=== PATIENT | female | born 1965 | race Caucasian/White ===

== ENCOUNTER → 2016-06-29 | Outpatient (CLI) | payer OTHER ==
[2016-06-29 09:27] LABS: Basophils % (A) 0 %; CH 30.8; CHCM 33.2; Eosinophils # (A) 0.2 k/uL (0-0.7); Eosinophils % (A) 3 %; HCT 43.6 % (34.0-46.0); HGB 14.1 gm/dL (11.4-16.0); Luc # (Auto) 0.19; Luc % (Auto) 3; Lymphocytes # (A) 1.9 k/uL (1.0-4.8); Lymphocytes % (A) 29 %; MCH 30.1 pg (25.0-35.0); MCHC 32.3 g/dL (31.0-37.0); MCV 93.2 fL (80.0-100.0); Mean Platelet Volume 7.5; Monocytes # (A) 0.4 k/uL (0-1.0); Monocytes % (A) 6 %; Neutrophils # (A) 3.8 k/uL (1.3-7.7); Neutrophils % (A) 58 %; RBC 4.68 m/uL (3.80-5.40); RDW 13.9 % (11.5-15.5); WBC 6.5 k/uL (3.8-10.6); WBC (Perox) 6.73
[2016-06-29 09:31] LABS: INR 1.3 (<1.1); Prothrombin Time 12.5 sec (9.0-12.0)
[2016-06-29 10:51] LABS: Manual Review Performed; RBC Morphology Normal
[2016-06-29 10:53] LABS: ALT 31 U/L (9-52); AST 19 U/L (14-36); Alkaline Phosphatase 93 U/L (38-126); Anion Gap 10 mmol/L; Blood Urea Nitrogen 23 mg/dL (7-17); Calcium 8.7 mg/dL (8.4-10.2); Carbon Dioxide 24 mmol/L (22-30); Chloride 109 mmol/L (98-107); Cholesterol 203 mg/dL (<200); Glucose 107 mg/dL (74-99); HDL Cholesterol 64 mg/dL (40-60); Non-African American GFR(MDRD) 53 (>60 ml/min/1.73 sqM); Potassium 4.4 mmol/L (3.5-5.1); Sodium 143 mmol/L (137-145); Total Bilirubin 0.3 mg/dL (0.2-1.3); Total Protein 7.1 g/dL (6.3-8.2); Triglycerides 194 mg/dL (<150); Uric Acid 5.1 mg/dL (3.7-7.4)
[2016-06-29 11:56] LABS: Vitamin B12 653 pg/mL (239-931)
[2016-06-29 12:41] LABS: Hemoglobin A1C 4.8 % (4.2-6.1)
== END | disposition home or self-care (01) ==
LOC: LABWHC1 08:45
PROVIDERS: ATTEND Family Medicine
DX: N18.3 Chronic kidney disease, stage 3 (moderate) (principal); R56.9 Unspecified convulsions; J44.9 Chronic obstructive pulmonary disease, unspecified; Z79.01 Long term (current) use of anticoagulants
CPT/HCPCS: 36415; 80053; 80061; 80185; 82607; 83036; 84439; 84443; 84550; 85025; 85610

== ENCOUNTER → 2016-08-27 | Outpatient (CLI) | payer OTHER ==
--- NOTE | 2016-09-02 09:57 | P.ARTDOP ---
Arterial Doppler LOWER EXTREMITY ARTERIAL DOPPLER: DATE OF SERVICE: 08/27/2016 Reason for study: Possible vasospasm. Doppler waveforms: Multiphasic bilaterally throughout. Pulse volume recording: Blunting below the ankle level, more on the right than the left. Pressure gradients: None. Ankle-brachial indices: Greater than 1 bilaterally. Toe pressures: [] on the right, [] on the left Impression: Normal study proximally. Decreased waveforms at the foot and toe level could be vasospastic phenomenon.
== END | disposition home or self-care (01) ==
LOC: RADUSWWP 08:26
PROVIDERS: ATTEND Family Medicine
DX: I73.9 Peripheral vascular disease, unspecified (principal); Z79.51 Long term (current) use of inhaled steroids
CPT/HCPCS: 93923

== ENCOUNTER → 2017-01-28 | Outpatient (CLI) | payer OTHER ==
--- NOTE | 2017-01-28 21:11 | US ---
EXAMINATION TYPE: US pelvic complete DATE OF EXAM: 01/28/2017 COMPARISON: US 2012, CT abdomen and pelvis January 14, 20152014 CLINICAL HISTORY: N93.9 Abnormal uterine bleeding. Patient stated had ceased [id number] months ag o at age 50, then heavy vaginal bleeding started recently; endometrial ablation, tubal ligation; take s Coumadin, Dilantin for seizures, and Labadie; ; HT 5'2, [id number]. TECHNIQUE: Transabdominal (TA) Date of LMP: approximately 15 months ago EXAM MEASUREMENTS:Uterus: 7.1 x 6.5 x 4.2 cm Endometrial Stripe: NA Right Ovary: 3.1 x 1.9 x 2.0 cm Left Ovary: not seen 1. Uterus: history of retroverted; bulbous appearance to upper uterus suggests possible uterine fibr oid = 4.3 x 4.1 x 4.4 2. Endometrium: not seen by TA US and with HX of endometrial ablation 3. Right Ovary: 2 possible cysts seen with larger measured = 1.5 x 1.5 x 1.4cm 4. Left Ovary: not seen 5. Bilateral Adnexa: wnl 6. Posterior cul-de-sac: wnl Exam is suboptimal as transvaginal evaluation. Performed. Heterogeneous slightly lobulated uterus is present. Underlying poorly defined fibroids cannot be excluded. Endometrial stripe is not seen with c ertainty. No free fluid is seen in pelvic cul-de-sac. Right ovary is visualized. Left ovary is not cl early seen. No suspicious adnexal masses are noted. IMPRESSION: Suboptimal study without transvaginal evaluation. Endometrium is not well seen suggesting atrophy. Heterogeneous lobulated uterus suggests underlying fibroids. Consider pelvic MRI correlatio n.
== END | disposition home or self-care (01) ==
LOC: RADUSWWP 15:14
PROVIDERS: ATTEND Family Medicine
DX: N93.9 Abnormal uterine and vaginal bleeding, unspecified (principal)
CPT/HCPCS: 76856

== ENCOUNTER → 2017-02-20 | Outpatient (CLI) | payer OTHER ==
[2017-02-20 07:29] LABS: Basophils % (A) 0 %; CH 30.7; CHCM 33.1; Eosinophils # (A) 0.2 k/uL (0-0.7); Eosinophils % (A) 2 %; HCT 41.3 % (34.0-46.0); HDW 2.62; HGB 14.1 gm/dL (11.4-16.0); Luc # (Auto) 0.24; Luc % (Auto) 3; Lymphocytes # (A) 2.2 k/uL (1.0-4.8); Lymphocytes % (A) 31 %; MCH 31.8 pg (25.0-35.0); MCHC 34.1 g/dL (31.0-37.0); MCV 93.1 fL (80.0-100.0); Mean Platelet Volume 7.6; Monocytes # (A) 0.5 k/uL (0-1.0); Monocytes % (A) 7 %; Neutrophils % (A) 56 %; RBC 4.44 m/uL (3.80-5.40); RDW 13.8 % (11.5-15.5); WBC 7.2 k/uL (3.8-10.6); WBC (Perox) 7.43
[2017-02-20 07:39] LABS: INR 1.6 (<1.2); Prothrombin Time 15.6 sec (9.0-12.0)
[2017-02-20 10:22] LABS: ALT 37 U/L (9-52); AST 23 U/L (14-36); Alkaline Phosphatase 93 U/L (38-126); Anion Gap 8 mmol/L; Blood Urea Nitrogen 22 mg/dL (7-17); Calcium 8.6 mg/dL (8.4-10.2); Carbon Dioxide 24 mmol/L (22-30); Chloride 107 mmol/L (98-107); Cholesterol 207 mg/dL (<200); Creatine Kinase 137 U/L (30-135); Glucose 97 mg/dL (74-99); HDL Cholesterol 62 mg/dL (40-60); Non-African American GFR(MDRD) >60 (>60 ml/min/1.73 sqM); Potassium 4.7 mmol/L (3.5-5.1); Sodium 139 mmol/L (137-145); Total Bilirubin 0.2 mg/dL (0.2-1.3); Total Protein 6.7 g/dL (6.3-8.2)
[2017-02-20 10:24] LABS: Erythrocyte Sedimentation Rate 44 mm/hr (0-20)
[2017-02-20 11:06] LABS: Vitamin B12 428 pg/mL (239-931)
[2017-02-20 11:10] LABS: Hemoglobin A1C 5.3 % (4.2-6.1)
== END | disposition home or self-care (01) ==
LOC: LABWHC1 07:00
PROVIDERS: ATTEND Family Medicine
DX: N18.3 Chronic kidney disease, stage 3 (moderate) (principal); R56.9 Unspecified convulsions; G89.4 Chronic pain syndrome; N93.9 Abnormal uterine and vaginal bleeding, unspecified; Z79.01 Long term (current) use of anticoagulants
CPT/HCPCS: 36415; 80053; 80061; 80185; 82550; 82607; 83001; 83002; 83036; 84443; 85025; 85610; 85652

== ENCOUNTER 2017-07-15 19:41 | Emergency (ER) | payer OTHER ==
[2017-07-15 19:51] VITALS: TEMP 96.8
[2017-07-15 20:13] VITALS: RESP 16
[2017-07-15] MEDS ORDERED: KETOROLAC 60 MG/2 ML VIAL IVP STA (20:14)
--- NOTE | 2017-07-15 20:18 | ED ---
General Adult HPI - General Chief complaint: Chest Pain Stated complaint: arm pain Time Seen by Provider: 07/15/17 19:45 Source: patient, RN notes reviewed Mode of arrival: ambulatory Limitations: no limitations - History of Present Illness Initial comments: This is a 51-year-old female presents emergency Department complaining that her left arm hurts and it radiates up into her neck in the anterior upper part of her chest. Patient states this is been ongoing for 2 weeks. Patient states it is not ever let up. Patient states anytime she moves or anybody touches those areas it is very tender to palpation. Patient denies any actual neck pain with movement. Patient states if she moves her left arm the pain in those areas gets definitely worse. Patient denies any difficulty breathing shortness of breath. Patient denies any numbness or weakness. Patient states she doesn't recall ever injuring it. Patient states she's had no palpitations. Patient denies any recent fever chills or cough. Patient denies any lightheadedness or dizziness. Patient denies any history of diabetes hypertension or high cholesterol. Patient denies any previous cardiac history. - Related Data Home Medications Medication Instructions Recorded Confirmed Phenytoin Sodium Extended 400 mg PO BID 05/06/14 07/15/17 [Dilantin] Naproxen Sodium [Aleve] 220 mg PO Q12HR PRN 01/14/15 07/15/17 Acetaminophen [Tylenol Extra 1,000 mg PO Q6H PRN 07/15/17 07/15/17 Strength] Warfarin [Coumadin] 5 mg PO SUMOTUTHSA 07/15/17 07/15/17 Warfarin [Coumadin] 7.5 mg PO WEFR 07/15/17 07/15/17 Previous Rx's Medication Instructions Recorded Ibuprofen [Motrin] 400 mg PO Q6HR PRN #20 tab 07/15/17 Allergies Allergy/AdvReac Type Severity Reaction Status Date / Time Penicillins Allergy Rash/Hives Verified 07/15/17 20:20 Sulfa (Sulfonamide Allergy Rash/Hives Verified 07/15/17 20:20 Antibiotics) Review of Systems ROS Statement: Those systems with pertinent positive or pertinent negative responses have been documented in the HPI. ROS Other: All systems not noted in ROS Statement are negative. Past Medical History Past Medical History: COPD, CVA/TIA, Deep Vein Thrombosis (DVT), Pulmonary Embolus (PE), Seizure Disorder, Sleep Apnea/CPAP/BIPAP Additional Past Medical History / Comment(s): TIA, blood clot left leg and PE left lung, last SZ 5 years; Protein disorder; Kidney stones History of Any Multi-Drug Resistant Organisms: None Reported Past Surgical History: Ablation, Tubal Ligation Additional Past Surgical History / Comment(s): Uterine ablation Past Anesthesia/Blood Transfusion Reactions: No Reported Reaction Past Psychological History: Depression Smoking Status: Current every day smoker Past Alcohol Use History: None Reported Past Drug Use History: None Reported - Past Family History Father Family Medical History: CVA/TIA, Diabetes Mellitus, Hypertension Additional Family Medical History / Comment(s): Mother Family Medical History: Coronary Artery Disease (CAD), Diabetes Mellitus, Hypertension General Exam - General Exam Comments Initial Comments: GENERAL: Patient is well-developed and well-nourished. Patient is nontoxic and well- hydrated and is in no acute distress. ENT: Neck is soft and supple. No significant lymphadenopathy is noted. Oropharynx is clear. Moist mucous membranes. Neck has full range of motion without eliciting any pain. EYES: The sclera were anicteric and conjunctiva were pink and moist. Extraocular movements were intact and pupils were equal round and reactive to light. Eyelids were unremarkable. PULMONARY: Unlabored respirations. Good breath sounds bilaterally. No audible rales rhonchi or wheezing was noted. CARDIOVASCULAR: There is a regular rate and rhythm without any murmurs gallops or rubs. ABDOMEN: Soft and nontender with normal bowel sounds. No palpable organomegaly was noted. There is no palpable pulsatile mass. SKIN: Skin is clear with no lesions or rashes and otherwise unremarkable. NEUROLOGIC: Patient is alert and oriented x3. Cranial nerves II through XII are grossly intact. Motor and sensory are also intact. Normal speech, volume and content. Symmetrical smile. MUSCULOSKELETAL: Pain is reproducible with abduction of the shoulder or palpitations of the shoulder trapezius muscle or the upper anterior chest. There is no area of erythema or swelling. LYMPHATICS: No significant lymphadenopathy is noted PSYCHIATRIC: Normal psychiatric evaluation. Limitations: no limitations Course Vital Signs 07/15/17 07/15/17 19:46 20:12 Temperature 96.8 F L Pulse Rate 105 H 102 H Respiratory 20 16 Rate Blood Pressure 126/91 143/80 O2 Sat by Pulse 99 99 Oximetry Medical Decision Making - Medical Decision Making EKG shows sinus tachycardia at 106 bpm urine it was 142 QRS is 70 QT interval 346 QTC is 459. Patient's EKG shows no ST segment elevation or depression or T wave abnormalities are noted. Chest x-ray shows no acute abnormality. After patient received Toradol shot she stated the pain was much improved. - Lab Data Result diagrams: 07/15/17 20:06 07/15/17 20:06 Lab Results 07/15/17 07/15/17 07/15/17 Range/Units 20:06 20:06 20:06 WBC 9.1 (3.8-10.6) k/uL RBC 4.57 (3.80-5.40) m/uL Hgb 13.7 (11.4-16.0) gm/dL Hct 42.7 (34.0-46.0) % MCV 93.4 (80.0-100.0) fL MCH 30.0 (25.0-35.0) pg MCHC 32.1 (31.0-37.0) g/dL RDW 14.9 (11.5-15.5) % Plt Count 115 L (150-450) k/uL Neutrophils % 68 % Lymphocytes % 23 % Monocytes % 6 % Eosinophils % 2 % Basophils % 0 % Neutrophils # 6.1 (1.3-7.7) k/uL Lymphocytes # 2.1 (1.0-4.8) k/uL Monocytes # 0.5 (0-1.0) k/uL Eosinophils # 0.2 (0-0.7) k/uL Basophils # 0.0 (0-0.2) k/uL PT (9.0-12.0) sec INR (<1.2) APTT (22.0-30.0) sec D-Dimer (<0.60) mg/L FEU Sodium 140 (137-145) mmol/L Potassium 4.3 (3.5-5.1) mmol/L Chloride 107 (98-107) mmol/L Carbon Dioxide 24 (22-30) mmol/L Anion Gap 9 mmol/L BUN 35 H (7-17) mg/dL Creatinine 1.15 H (0.52-1.04) mg/dL Est GFR (MDRD) Af Amer >60 (>60 ml/min/1.73 sqM) Est GFR (MDRD) Non-Af 50 (>60 ml/min/1.73 sqM) Glucose 115 H (74-99) mg/dL Calcium 9.0 (8.4-10.2) mg/dL Magnesium 1.9 (1.6-2.3) mg/dL Total Bilirubin 0.2 (0.2-1.3) mg/dL AST 22 (14-36) U/L ALT 26 (9-52) U/L Alkaline Phosphatase 80 (38-126) U/L Total Creatine Kinase 170 H (30-135) U/L CK-MB (CK-2) 2.8 H* (0.0-2.4) ng/mL CK-MB (CK-2) Rel Index 1.6 Troponin I <0.012 (0.000-0.034) ng/mL Total Protein 7.0 (6.3-8.2) g/dL Albumin 3.6 (3.5-5.0) g/dL Phenytoin 11.7 ug/mL 07/15/17 Range/Units 20:06 WBC (3.8-10.6) k/uL RBC (3.80-5.40) m/uL Hgb (11.4-16.0) gm/dL Hct (34.0-46.0) % MCV (80.0-100.0) fL MCH (25.0-35.0) pg MCHC (31.0-37.0) g/dL RDW (11.5-15.5) % Plt Count (150-450) k/uL Neutrophils % % Lymphocytes % % Monocytes % % Eosinophils % % Basophils % % Neutrophils # (1.3-7.7) k/uL Lymphocytes # (1.0-4.8) k/uL Monocytes # (0-1.0) k/uL Eosinophils # (0-0.7) k/uL Basophils # (0-0.2) k/uL PT 11.4 (9.0-12.0) sec INR 1.2 H (<1.2) APTT 53.0 H (22.0-30.0) sec D-Dimer 0.39 (<0.60) mg/L FEU Sodium (137-145) mmol/L Potassium (3.5-5.1) mmol/L Chloride (98-107) mmol/L Carbon Dioxide (22-30) mmol/L Anion Gap mmol/L BUN (7-17) mg/dL Creatinine (0.52-1.04) mg/dL Est GFR (MDRD) Af Amer (>60 ml/min/1.73 sqM) Est GFR (MDRD) Non-Af (>60 ml/min/1.73 sqM) Glucose (74-99) mg/dL Calcium (8.4-10.2) mg/dL Magnesium (1.6-2.3) mg/dL Total Bilirubin (0.2-1.3) mg/dL AST (14-36) U/L ALT (9-52) U/L Alkaline Phosphatase (38-126) U/L Total Creatine Kinase (30-135) U/L CK-MB (CK-2) (0.0-2.4) ng/mL CK-MB (CK-2) Rel Index Troponin I (0.000-0.034) ng/mL Total Protein (6.3-8.2) g/dL Albumin (3.5-5.0) g/dL Phenytoin ug/mL Disposition Clinical Impression: Musculoskeletal pain, Lung density on x-ray Disposition: HOME SELF-CARE Condition: Good Instructions: Chest Pain (ED) Prescriptions: Ibuprofen [Motrin] 400 mg PO Q6HR PRN #20 tab PRN Reason: Pain Referrals: Lise Urias MD [Primary Care Provider] - 1-2 days Time of Disposition: 21:21
[2017-07-15 20:27] LABS: Basophils % (A) 0 %; Eosinophils # (A) 0.2 k/uL (0-0.7); Eosinophils % (A) 2 %; HCT 42.7 % (34.0-46.0); HGB 13.7 gm/dL (11.4-16.0); Lymphocytes # (A) 2.1 k/uL (1.0-4.8); Lymphocytes % (A) 23 %; MCHC 32.1 g/dL (31.0-37.0); MCV 93.4 fL (80.0-100.0); Mean Platelet Volume 8.6; Monocytes # (A) 0.5 k/uL (0-1.0); Monocytes % (A) 6 %; Neutrophils # (A) 6.1 k/uL (1.3-7.7); Neutrophils % (A) 68 %; Platelet Count 115 k/uL (150-450); RBC 4.57 m/uL (3.80-5.40); RDW 14.9 % (11.5-15.5); WBC 9.1 k/uL (3.8-10.6)
[2017-07-15 20:43] LABS: D-Dimer 0.39 mg/L FEU (<0.60); INR 1.2 (<1.2); Prothrombin Time 11.4 sec (9.0-12.0)
--- NOTE | 2017-07-15 20:46 | XR ---
EXAMINATION TYPE: XR chest 2V DATE OF EXAM: 07/15/2017 COMPARISON: 05/06/2014 INDICATION: Chest pain TECHNIQUE: Frontal and lateral views of the chest are obtained. FINDINGS: The heart size is normal. The pulmonary vasculature is normal. There is a 2.2 cm density in the left perihilar region. Mass should be considered underlying pneumoni a could be considered. IMPRESSION: 1. 2.2 cm masslike area left perihilar region, neoplasm is not excluded.
[2017-07-15 20:48] LABS: Albumin 3.6 g/dL (3.5-5.0); Anion Gap 9 mmol/L; Blood Urea Nitrogen 35 mg/dL (7-17); Carbon Dioxide 24 mmol/L (22-30); Chloride 107 mmol/L (98-107); Glucose 115 mg/dL (74-99); Magnesium 1.9 mg/dL (1.6-2.3); Potassium 4.3 mmol/L (3.5-5.1); Sodium 140 mmol/L (137-145)
[2017-07-15 20:49] LABS: ALT 26 U/L (9-52); AST 22 U/L (14-36); Alkaline Phosphatase 80 U/L (38-126); Total Bilirubin 0.2 mg/dL (0.2-1.3)
[2017-07-15 20:50] LABS: Creatine Kinase 170 U/L (30-135)
[2017-07-15 21:01] LABS: Phenytoin (Dilantin) 11.7 ug/mL
[2017-07-15 21:03] LABS: Troponin I <0.012 ng/mL (0.000-0.034)
[2017-07-15 21:09] LABS: Creatine Kinase MB 2.8 ng/mL (0.0-2.4)
[2017-07-15 21:30] VITALS: BP 125/79; PULSE 96
== END 2017-07-15 21:36 | disposition home or self-care (01) ==
LOC: EC 19:41
DX: R07.9 Chest pain, unspecified (principal); M79.602 Pain in left arm; R91.8 Other nonspecific abnormal finding of lung field; F17.200 Nicotine dependence, unspecified, uncomplicated; G47.30 Sleep apnea, unspecified; Z99.89 Dependence on other enabling machines and devices; Z86.73 Personal history of transient ischemic attack (TIA), and cerebral infarction without residual deficits; Z86.711 Personal history of pulmonary embolism; Z86.718 Personal history of other venous thrombosis and embolism; Z86.69 Personal history of other diseases of the nervous system and sense organs; Z79.01 Long term (current) use of anticoagulants; Z79.899 Other long term (current) drug therapy; Z88.0 Allergy status to penicillin; Z88.2 Allergy status to sulfonamides
CPT/HCPCS: 36415; 93005; 85379; 80053; 82550; 82553; 80185; 83735; 84484; 85025; 85610; 85730; 71046; 99285; 96374; J1885

== ENCOUNTER → 2017-08-09 | Outpatient (CLI) | payer OTHER ==
[2017-08-09 08:13] LABS: Basophils % (A) 1 %; Eosinophils # (A) 0.2 k/uL (0-0.7); Eosinophils % (A) 3 %; HCT 41.5 % (34.0-46.0); HGB 13.7 gm/dL (11.4-16.0); Lymphocytes # (A) 1.8 k/uL (1.0-4.8); Lymphocytes % (A) 26 %; MCH 30.7 pg (25.0-35.0); MCHC 33.1 g/dL (31.0-37.0); MCV 92.8 fL (80.0-100.0); Mean Platelet Volume 7.5; Monocytes # (A) 0.5 k/uL (0-1.0); Monocytes % (A) 7 %; Neutrophils # (A) 4.3 k/uL (1.3-7.7); Neutrophils % (A) 62 %; Platelet Count 138 k/uL (150-450); RBC 4.47 m/uL (3.80-5.40)
[2017-08-09 08:17] LABS: INR 2.7 (<1.2)
[2017-08-09 08:18] LABS: Prothrombin Time 24.1 sec (9.0-12.0)
[2017-08-09 10:14] LABS: ALT 22 U/L (9-52); AST 22 U/L (14-36); Albumin 3.6 g/dL (3.5-5.0); Alkaline Phosphatase 95 U/L (38-126); Anion Gap 10 mmol/L; Blood Urea Nitrogen 23 mg/dL (7-17); Calcium 8.7 mg/dL (8.4-10.2); Carbon Dioxide 22 mmol/L (22-30); Chloride 110 mmol/L (98-107); Cholesterol 211 mg/dL (<200); Creatine Kinase 220 U/L (30-135); Glucose 108 mg/dL (74-99); HDL Cholesterol 68 mg/dL (40-60); LDL Cholesterol,Calculated 117 mg/dL (0-99); Phenytoin (Dilantin) 10.9 ug/mL; Potassium 4.4 mmol/L (3.5-5.1); Sodium 142 mmol/L (137-145); Total Bilirubin 0.2 mg/dL (0.2-1.3); Total Protein 7.2 g/dL (6.3-8.2); Triglycerides 132 mg/dL (<150)
[2017-08-09 11:14] LABS: Erythrocyte Sedimentation Rate 56 mm/hr (0-20)
[2017-08-09 15:42] LABS: Vitamin D 25 Hydroxy 17.3 ng/mL (30.0-100.0)
== END | disposition home or self-care (01) ==
LOC: LABWHC1 07:36
PROVIDERS: ATTEND Family Medicine
DX: N18.3 Chronic kidney disease, stage 3 (moderate) (principal); G89.4 Chronic pain syndrome; N93.9 Abnormal uterine and vaginal bleeding, unspecified; E55.9 Vitamin D deficiency, unspecified; R56.9 Unspecified convulsions; Z79.01 Long term (current) use of anticoagulants
CPT/HCPCS: 36415; 80053; 80061; 80185; 82306; 82550; 82607; 83001; 83002; 84439; 84443; 85025; 85610; 85652

== ENCOUNTER → 2017-08-12 | Outpatient (CLI) | payer OTHER ==
--- NOTE | 2017-08-12 20:47 | CT ---
EXAMINATION TYPE: CT chest w con DATE OF EXAM: 08/12/2017 COMPARISON: Chest x-ray 07/15/2017 HISTORY: Follow up CXR per patient CT DLP: 559 mGycm, Automated exposure control for dose reduction was used. CONTRAST: Performed injected with 100 mL of Visipaque 320. TECHNIQUE: Axial images were obtained at 5 mm thick sections. Reconstructed images are reviewed on [employer] computer in the coronal plane. FINDINGS: Portion of the thyroid visualized is normal. There is a 1.5 x 1.7 cm lobular density lateral to the left hilar region corresponding to the finding on the chest x-ray. Neoplasm should be considered. Additional workup with PET CT is recommended. No enlarged mediastinal or hilar adenopathy is evident. The ascending aorta diameter at the level o f the main pulmonary artery is 3.3 cm. The main pulmonary artery diameter at the bifurcation is 2.[address] sections are obtained through the upper abdomen. Abdomen is essentially unremarkable. IMPRESSIONS: 1. 1.5 x 1.7 cm lobular density lateral to the left hilar region suspicious for neoplasm. Additional workup with PET CT is recommended. A Yellow message has been communicated to Lise Urias MD via the [employer] Result system on 08/12/2017 8:45 PM, Message ID [id number].
== END | disposition home or self-care (01) ==
LOC: RADCTMAIN 08:38
PROVIDERS: ATTEND Family Medicine
DX: J98.4 Other disorders of lung (principal)
CPT/HCPCS: 71260; Q9967

== ENCOUNTER → 2017-08-21 | Outpatient (CLI) | payer OTHER ==
--- NOTE | 2017-08-22 12:51 | PE ---
EXAMINATION TYPE: PET CT fusion skull to thigh DATE OF EXAM: 08/21/2017 COMPARISON: CT chest 08/12/2017 Prior PET/CT: 01/26/2015 HISTORY: Solitary pulmonary nodule TECHNIQUE: Following the intravenous administration of 14.123 mCi of F-18 FDG, whole body images are performed from the skull base to the midthigh. Images are reviewed on the computer in the coronal, axial, and sagittal planes. Reconstructed rotating images are created on independent workstation and reviewed on the computer. A localization and attenuation correction CT is performed in conjunction with the PET scan. DLP: 412.27 mGycm SCAN: Subsequent Blood glucose: 97 mg/dL Average Mediastinum SUV: 2.35 Average Liver SUV: 3.68 FINDINGS: NECK: No abnormal uptake THORAX: A nodular density in the left infrahilar region has an SUV value 1.72 which is intermediate. Nonspecific. Low metabolic activity metastasis inflammatory change within the differential. ABDOMEN: No abnormal uptake PELVIS: No abnormal uptake OSSEOUS STRUCTURES: No abnormal uptake LOCALIZATION CT: The ascending thoracic aorta at the level of main pulmonary artery is 3.7 cm patent main pulmonary bifurcation is 2.6 cm. The lung nodule is identified on lung windows left infrahilar r egion currently measures 1.7 x 1.9 cm on lung windows. This has enlarged from the PET/CT localization of 01/26/2015 measuring 1.1 x 1.0 cm. COMPARISON: This is similar to 08/12/2017 CT has enlarged from the 01/26/[address] IMPRESSION: 1. Enlarging nodule on prior PET scan. This has intermediate radiotracer uptake. Inflammatory change such as granuloma as well as low metabolic activity neoplasm remain within the differential. 2. No suspicious additional uptake.
== END | disposition home or self-care (01) ==
LOC: RADPETMAIN 11:16
PROVIDERS: ATTEND Family Medicine
DX: R91.1 Solitary pulmonary nodule (principal)
CPT/HCPCS: 78815; A9552

== ENCOUNTER → 2018-06-01 | Outpatient (CLI) | payer MEDICARE, OTHER ==
--- NOTE | 2018-06-01 13:02 | XR ---
EXAMINATION TYPE: XR knee complete LT DATE OF EXAM: 06/01/2018 COMPARISON: None HISTORY: Pain after multiple falls TECHNIQUE: Three-view left knee FINDINGS: Acute displaced fracture is not identified. No joint effusion is evident. The lateral cortical margin of the patella is somewhat irregular. Correlate with location of patient' s pain. This has a more normal appearance on the AP projection and the oblique view. Small lucency ma y be in the posterior superior spurring of the patella. Nondisplaced fracture through the spur is not excluded. A posterior inferior patellar spur is present. There is mild narrowing of joint spaces. Medial femoral condylar and medial tibial plateau spurring i s present compatible with degenerative change. IMPRESSION: 1. Small nondisplaced fracture of the superior patellar spur is not excluded. Correlate with locatio n of patient's pain. 2. Poor visualization of the lateral cortical margin of the patella. Fracture not excluded at this lo cation. 3. Consider CT for additional evaluation. 4. Degenerative joint changes left knee
--- NOTE | 2018-06-01 13:23 | CT ---
EXAMINATION TYPE: CT facial bones wo con DATE OF EXAM: 06/01/2018 COMPARISON: None HISTORY: Tripped over dog, laceration bridge of nose CT DLP: Included in brain CT mGycm Automated exposure control for dose reduction was used. TECHNIQUE: CT scan of the facial bones was performed without contrast, axial images are obtained, cor onal reformatted images are also reviewed. FINDINGS: There is a nondisplaced fracture of the anterior aspect of the left nasal bone on coronal i mage 23 and axial image 24. There is 2 mm diastases of the fracture site. There is soft tissue swelli ng over the nasal bridge extending to the medial canthus bilaterally. There is also maxillary spine t ransversely oriented nondisplaced fracture on axial image 10. Nasal septum appears intact. Zygomatic arches and pterygoid plates are also intact. Visualized paranasal sinuses and mastoid air cells are u nremarkable. Evaluation of the brain is suboptimal on this examination given technique. Globes are sy mmetric and lenses appear in place. Atherosclerosis of the intracranial vasculature is noted. IMPRESSION: 1. Nondisplaced anterior left nasal bone fracture with 2 mm diastases of the fracture site and overly ing nasal bridge soft tissue swelling. 2. Transversely oriented nondisplaced fracture of the maxillary spine.
--- NOTE | 2018-06-01 13:29 | CT ---
EXAMINATION TYPE: CT brain wo con DATE OF EXAM: 06/01/2018 COMPARISON: Prior CT brain dated 01/03/2011 HISTORY: Tripped over dog, laceration bridge of nose CT DLP: 1121 mGycm Automated exposure control for dose reduction was used. Helical acquisition through the brain. FINDINGS: There is no hemorrhage or hydrocephalus. Brain density is normal. Calvarium is intact. Soft tissue sw elling noted over the nasal region. Irregularity of the distal aspect of the nasal bone, correlate fo r point tenderness to assess for fracture. No depressed skull fracture. IMPRESSION: DIFFICULT TO EXCLUDE NASAL BONE FRACTURE, CORRELATE. SEE DICTATED REPORT FACIAL BONES SAME DATE.
== END ==
LOC: RADCTMAIN 12:14
PROVIDERS: ATTEND Nurse Practitioner Family
DX: R51 Headache (principal); S02.2XXA Fracture of nasal bones, initial encounter for closed fracture; S02.401A Maxillary fracture, unspecified side, initial encounter for closed fracture; S82.092A Other fracture of left patella, initial encounter for closed fracture; M17.12 Unilateral primary osteoarthritis, left knee
CPT/HCPCS: 70450; 70486

== ENCOUNTER → 2018-06-03 | Outpatient (CLI) | payer MEDICARE, OTHER ==
--- NOTE | 2018-06-06 13:05 | XR ---
EXAMINATION TYPE: XR Hip Complete LT DATE OF EXAM: 06/03/2018 COMPARISON: NONE HISTORY: 52-year-old female left hip pain after fall TECHNIQUE: 2 views FINDINGS: There is mild degenerative spurring at the left hip. Osteopenia. No acute fracture, subluxation, or d islocation seen. IMPRESSION: Mild degenerative change at the left hip. There is osteopenia without acute fracture seen.
== END | disposition home or self-care (01) ==
LOC: RADXRMAIN 16:54
PROVIDERS: ATTEND Family Medicine
DX: M16.12 Unilateral primary osteoarthritis, left hip (principal)
CPT/HCPCS: 73502

== ENCOUNTER 2018-11-16 12:21 | Inpatient (IN) | payer MEDICARE, OTHER ==
[2018-11-16] MEDS ORDERED: SODIUM CHLORIDE 0.9% 1,000 ML IV STA (14:11)
[2018-11-16 14:43] LABS: Appearance,Urine Clear (Clear); Bilirubin,Urine Negative (Negative); Blood,Urine Negative (Negative); Color,Urine Colorless; Glucose,Urine (UA) Negative (Negative); Ketones,Urine Negative (Negative); Leukocyte Esterase,Urine Negative (Negative); Nitrite,Urine Negative (Negative); Protein,Urine Negative (Negative); Specific Gravity,Urine 1.008 (1.001-1.035); Urobilinogen,Urine <2.0 mg/dL (<2.0)
[2018-11-16 14:49] LABS: Basophils % (A) 1 %; Eosinophils # (A) 0.2 k/uL (0-0.7); Eosinophils % (A) 3 %; HCT 38.3 % (34.0-46.0); HGB 12.7 gm/dL (11.4-16.0); Lymphocytes # (A) 1.8 k/uL (1.0-4.8); Lymphocytes % (A) 26 %; MCHC 33.2 g/dL (31.0-37.0); MCV 90.1 fL (80.0-100.0); Mean Platelet Volume 7.2; Monocytes # (A) 0.5 k/uL (0-1.0); Monocytes % (A) 7 %; Neutrophils # (A) 4.3 k/uL (1.3-7.7); Neutrophils % (A) 62 %; Platelet Count 130 k/uL (150-450); RBC 4.24 m/uL (3.80-5.40); RDW 13.8 % (11.5-15.5)
--- NOTE | 2018-11-16 14:49 | ED ---
Weakness HPI <BoHowie - Last Filed: 11/16/18 17:09> - General Source: patient, RN notes reviewed, old records reviewed Mode of arrival: wheelchair Limitations: no limitations <Billie Lewis - Last Filed: 11/16/18 17:28> - General Chief complaint: Weakness Stated complaint: Poss stroke Time Seen by Provider: 11/16/18 13:51 - History of Present Illness Initial comments: Patient is a 50-year-old female presents emergency department today with complaints of dizziness room spinning-like episodes for the past 2 days. She also complains of a headache and leg weakness. She states that her both of her legs feel like they're giving out on her. Patient states that she's had some neck pain. She denies any nausea or vomiting or chest pain. She is a smoker. He does have history of seizure disorder and to see Dr. Waller. (Billie Lewis) - Related Data Home Medications Medication Instructions Recorded Confirmed Warfarin [Coumadin] 5 mg PO W/SUPPER 07/15/17 11/16/18 Albuterol Inhaler [Ventolin Hfa 1 - 2 puff INHALATION RT-Q6H PRN 11/16/18 11/16/18 Inhaler] Albuterol Nebulized [Ventolin 2.5 mg INHALATION RT-Q4H PRN 11/16/18 11/16/18 Nebulized] Budesonide/Formoterol Fumarate 2 puff INHALATION RT-BID 11/16/18 11/16/18 [Symbicort 160-4.5 Mcg Inhaler] Citalopram Hydrobromide [CeleXA] 20 mg PO DAILY 11/16/18 11/16/18 Furosemide [Lasix] 40 mg PO Q72H PRN 11/16/18 11/16/18 HYDROcodone/APAP 10-325MG [[place] 1 tab PO DAILY PRN 11/16/18 11/16/18 10-325] Meclizine [Antivert] 25 mg PO TID 11/16/18 11/16/18 Pantoprazole Sodium 20 mg PO DAILY 11/16/18 11/16/18 Phenytoin Sodium Extended 300 mg PO HS 11/16/18 11/16/18 [Dilantin] Phenytoin Sodium Extended 400 mg PO BID@0800,1200 11/16/18 11/16/18 [Dilantin] Potassium Chloride ER [K-Dur 10] 20 meq PO Q72H PRN 11/16/18 11/16/18 Tiotropium 18 Mcg/Puff [Spiriva] 1 puff INHALATION DAILY@1200 11/16/18 11/16/18 Umeclidinium [place] [Incruse 1 puff INHALATION RT-DAILY@1500 11/16/18 11/16/18 Ellipta] Allergies Allergy/AdvReac Type Severity Reaction Status Date / Time Penicillins Allergy Rash/Hives Verified 11/16/18 14:11 Sulfa (Sulfonamide Allergy Rash/Hives Verified 11/16/18 14:11 Antibiotics) Review of Systems ROS Other: All systems not noted in ROS Statement are negative. <Howie Soriano - Last Filed: 11/16/18 17:09> ROS Other: All systems not noted in ROS Statement are negative. <Billie Lewis - Last Filed: 11/16/18 17:28> ROS Statement: Those systems with pertinent positive or pertinent negative responses have been documented in the HPI. Past Medical History Past Medical History: COPD, CVA/TIA, Deep Vein Thrombosis (DVT), Pulmonary Embolus (PE), Seizure Disorder, Sleep Apnea/CPAP/BIPAP Additional Past Medical History / Comment(s): TIA, blood clot left leg and PE left lung, last SZ 5 years; Protein disorder; Kidney stones History of Any Multi-Drug Resistant Organisms: None Reported Past Surgical History: Ablation, Tubal Ligation Additional Past Surgical History / Comment(s): Uterine ablation Past Anesthesia/Blood Transfusion Reactions: No Reported Reaction Past Psychological History: Depression Smoking Status: Current every day smoker Past Alcohol Use History: None Reported Past Drug Use History: None Reported - Past Family History Father Family Medical History: CVA/TIA, Diabetes Mellitus, Hypertension Additional Family Medical History / Comment(s): Mother Family Medical History: Coronary Artery Disease (CAD), Diabetes Mellitus, Hypertension <Billie Lewis - Last Filed: 11/16/18 17:28> General Exam Limitations: no limitations General appearance: alert, in no apparent distress Head exam: Present: atraumatic, normocephalic, normal inspection Eye exam: Present: normal appearance, nystagmus (Nystagmus on left lateral gaze. Stegman is noted over left lateral gaze) ENT exam: Present: normal exam, mucous membranes moist Neck exam: Present: normal inspection. Absent: tenderness, meningismus, lymphadenopathy Respiratory exam: Present: normal lung sounds bilaterally. Absent: respiratory distress, wheezes, rales, rhonchi, stridor Cardiovascular Exam: Present: regular rate, normal rhythm, normal heart sounds. Absent: systolic murmur, diastolic murmur, rubs, gallop, clicks GI/Abdominal exam: Present: soft, normal bowel sounds. Absent: distended, tenderness, guarding, rebound, rigid Extremities exam: Present: normal inspection, full ROM, normal capillary refill. Absent: tenderness, pedal edema, joint swelling, calf tenderness Back exam: Present: normal inspection Neurological exam: Present: alert, oriented X3, CN II-XII intact Expanded Patient oriented to: Present: person, place, time Speech: Present: fluid speech Cranial nerves: EOM's Intact: Normal, Nystagmus: Abnormal Left, Facial Sensation: Normal Upper motor neuron: Pronator Drift: Normal Sensory exam: Upper Extremity Light Touch: Normal, Lower Extremity Light Touch: Normal Motor strength exam: RUE: 5, LUE: 5, RLE: 5, LLE: 5 Eye Response: (4) open spontaneously Motor Response: (6) obeys commands Verbal Response: (5) oriented Anika Total: 15 Psychiatric exam: Present: normal affect, normal mood Skin exam: Present: warm, dry, intact, normal color. Absent: rash <Billie Lewis - Last Filed: 11/16/18 17:28> - General Exam Comments Initial Comments: 53-year-old female. Appears older than stated age. (Billie Lewis) Course Vital Signs 11/16/18 11/16/18 12:42 17:15 Temperature 97.8 F 97.6 F Pulse Rate 83 83 Respiratory 20 18 Rate Blood Pressure 133/88 129/95 O2 Sat by Pulse 98 100 Oximetry EKG Findings - EKG Comments: EKG Findings:: EKG shows normal sinus rhythm normal EKG noted. Ventricular rate of 70 bpm. Interval is 170 ms. QS duration 76 no seconds. QT QTc is 44/457 ms. <Billie Lewis - Last Filed: 11/16/18 17:28> Medical Decision Making - Lab Data Result diagrams: 11/16/18 14:30 11/16/18 14:30 <Howie Soriano - Last Filed: 11/16/18 17:09> - Lab Data Result diagrams: 11/16/18 14:30 11/16/18 14:30 - Radiology Data Radiology results: report reviewed <JoshuaBillie ji - Last Filed: 11/16/18 17:28> - Medical Decision Making Patient reevaluated and reexamined by myself, Dr. Soriano. Patient resting comfortably in bed. No focal deficits on examination. Patient does have bilateral nystagmus. Reports an results reviewed. I do agree 3 findings. Symptoms includes treatment plan. Case was discussed in detail with Dr. Lao, covering for Dr. Urias, who will admit. He does recommend aspirin and telemetry. Also recommends consult with neurology and Dr. Lambert (Howie Soriano) Patient is a pleasant 53-year-old female presents emergency department today with complaints of lower extremity weakness, and dizziness for the past 2-3 days. Patient reports that this is a she's having a stroke. She does complain of a headache. Patient states it feels like the room is spinning. She denies any significant coughing or chest pain. She has a known history of pulmonary mass. She states it has been biopsied and tested by Dr. Lambert. Patient's CT of the branches evidence of brain stem left-sided ischemia. This could relate to her bilateral nystagmus. Patient will be given aspirin, admitted to the hospital this time for acute stroke. Patient's case discussed with Dr. Soriano. (Billie Lewis) - Lab Data Lab Results 11/16/18 11/16/18 11/16/18 Range/Units 14:30 14:30 14:30 WBC 7.0 (3.8-10.6) k/uL RBC 4.24 (3.80-5.40) m/uL Hgb 12.7 (11.4-16.0) gm/dL Hct 38.3 (34.0-46.0) % MCV 90.1 (80.0-100.0) fL MCH 30.0 (25.0-35.0) pg MCHC 33.2 (31.0-37.0) g/dL RDW 13.8 (11.5-15.5) % Plt Count 130 L (150-450) k/uL Neutrophils % 62 % Lymphocytes % 26 % Monocytes % 7 % Eosinophils % 3 % Basophils % 1 % Neutrophils # 4.3 (1.3-7.7) k/uL Lymphocytes # 1.8 (1.0-4.8) k/uL Monocytes # 0.5 (0-1.0) k/uL Eosinophils # 0.2 (0-0.7) k/uL Basophils # 0.0 (0-0.2) k/uL PT (9.0-12.0) sec INR (<1.2) APTT (22.0-30.0) sec Sodium 138 (137-145) mmol/L Potassium 5.7 H (3.5-5.1) mmol/L Chloride 109 H (98-107) mmol/L Carbon Dioxide 22 (22-30) mmol/L Anion Gap 7 mmol/L BUN 25 H (7-17) mg/dL Creatinine 0.94 (0.52-1.04) mg/dL Est GFR (CKD-EPI)AfAm 80 (>60 ml/min/1.73 sqM) Est GFR (CKD-EPI)NonAf 70 (>60 ml/min/1.73 sqM) Glucose 77 (74-99) mg/dL Plasma Lactic Acid Leo 1.0 (0.7-2.0) mmol/L Calcium 8.6 (8.4-10.2) mg/dL Total Bilirubin 0.5 (0.2-1.3) mg/dL AST 32 (14-36) U/L ALT 18 (9-52) U/L Alkaline Phosphatase 101 (38-126) U/L Troponin I (0.000-0.034) ng/mL Total Protein 7.8 (6.3-8.2) g/dL Albumin 4.1 (3.5-5.0) g/dL Urine Color Urine Appearance (Clear) Urine pH (5.0-8.0) Ur Specific [place] (1.001-1.035) Urine Protein (Negative) Urine Glucose (UA) (Negative) Urine Ketones (Negative) Urine Blood (Negative) Urine Nitrite (Negative) Urine Bilirubin (Negative) Urine Urobilinogen (<2.0) mg/dL Ur Leukocyte Esterase (Negative) 05/29/19 05/29/19 05/29/19 Range/Units 14:30 14:30 14:30 WBC (3.8-10.6) k/uL RBC (3.80-5.40) m/uL Hgb (11.4-16.0) gm/dL Hct (34.0-46.0) % MCV (80.0-100.0) fL MCH (25.0-35.0) pg MCHC (31.0-37.0) g/dL RDW (11.5-15.5) % Plt Count (150-450) k/uL Neutrophils % % Lymphocytes % % Monocytes % % Eosinophils % % Basophils % % Neutrophils # (1.3-7.7) k/uL Lymphocytes # (1.0-4.8) k/uL Monocytes # (0-1.0) k/uL Eosinophils # (0-0.7) k/uL Basophils # (0-0.2) k/uL PT 18.7 H (9.0-12.0) sec INR 1.9 H (<1.2) APTT 81.2 H (22.0-30.0) sec Sodium (137-145) mmol/L Potassium (3.5-5.1) mmol/L Chloride (98-107) mmol/L Carbon Dioxide (22-30) mmol/L Anion Gap mmol/L BUN (7-17) mg/dL Creatinine (0.52-1.04) mg/dL Est GFR (CKD-EPI)AfAm (>60 ml/min/1.73 sqM) Est GFR (CKD-EPI)NonAf (>60 ml/min/1.73 sqM) Glucose (74-99) mg/dL Plasma Lactic Acid Leo (0.7-2.0) mmol/L Calcium (8.4-10.2) mg/dL Total Bilirubin (0.2-1.3) mg/dL AST (14-36) U/L ALT (9-52) U/L Alkaline Phosphatase (38-126) U/L Troponin I <0.012 (0.000-0.034) ng/mL Total Protein (6.3-8.2) g/dL Albumin (3.5-5.0) g/dL Urine Color Colorless Urine Appearance Clear (Clear) Urine pH 5.0 (5.0-8.0) Ur Specific [place] 1.008 (1.001-1.035) Urine Protein Negative (Negative) Urine Glucose (UA) Negative (Negative) Urine Ketones Negative (Negative) Urine Blood Negative (Negative) Urine Nitrite Negative (Negative) Urine Bilirubin Negative (Negative) Urine Urobilinogen <2.0 (<2.0) mg/dL Ur Leukocyte Esterase Negative (Negative) - Radiology Data CT of the brain shows brainstem ischemic area with left brainstem of indeterminate age. Consider MRI for additional evaluation. There is evidence of left hilar mass that is enlarged measures 2.9 cm or cyst 2.2 cm. This is felt to reflect malignancy until proven otherwise. Recommended CT. (Billie Lewis) Disposition <Howie Soriano - Last Filed: 11/16/18 17:09> Is patient prescribed a controlled substance at d/c from ED?: No Time of Disposition: 17:28 <Billie Lewis - Last Filed: 11/16/18 17:28> Clinical Impression: Brainstem stroke, Dizziness, Hilar mass Disposition: ADMITTED IP TO THIS HOSP Condition: Stable Referrals: Lise Urias MD [Primary Care Provider] - 1-2 days
[2018-11-16 14:50] LABS: Albumin 4.1 g/dL (3.5-5.0); Calcium 8.6 mg/dL (8.4-10.2); Potassium 5.7 mmol/L (3.5-5.1); Total Bilirubin 0.5 mg/dL (0.2-1.3); Total Protein 7.8 g/dL (6.3-8.2)
[2018-11-16 14:52] LABS: INR 1.9 (<1.2); Prothrombin Time 18.7 sec (9.0-12.0)
[2018-11-16 14:59] LABS: Partial Thromboplastin Time 81.2 sec (22.0-30.0)
--- NOTE | 2018-11-16 15:06 | CT ---
EXAMINATION TYPE: CT brain wo con DATE OF EXAM: 11/16/2018 COMPARISON: 06/01/2018 INDICATION: Leg weakness and dizziness. DLP: 1123.4 mGycm, Automated exposure control for dose reduction was used. CONTRAST: None CT of the brain is performed utilizing 3 mm thick sections through the posterior fossa and 3 mm thick sections through the remaining calvarium. Study is performed within 24 hours of arrival to the hosp ital. No abnormal hyperdensity is present to suggest an acute intracranial hemorrhage. No mass lesion is evident. No acute infarcts are evident. There is a low-density area within the left brainstem, series 201 imag e 21 could represent some ischemic change of indeterminate age. Ventricles and sulci are appropriate for the patient age. Paranasal sinuses and mastoid air cells within the [id number]-thay are clear. IMPRESSIONS: 1. Brainstem ischemic area within the left brainstem is of indeterminate age. Consider MRI for lizandro tional evaluation.
--- NOTE | 2018-11-16 15:08 | XR ---
EXAMINATION TYPE: XR chest 2V DATE OF EXAM: 11/16/2018 COMPARISON: 07/15/2017 HISTORY: Shortness of breath TECHNIQUE: Frontal and lateral views of the chest are obtained. FINDINGS: Scattered senescent parenchymal changes noted. Hyperinflation compatible with COPD. Left hilar mass has enlarged and measures 2.9 cm versus 2.2 cm. This is felt to reflect malignancy un til proven otherwise. Recommend CT Heart size is stable. Mediastinal structures are stable and grossly unremarkable. No evidence for hilar prominence. Degenerative changes dorsal spine. IMPRESSION: 1. Left hilar mass has enlarged and measures 2.9 cm versus 2.2 cm. This is felt to reflect malignancy until proven otherwise. Recommend CT
[2018-11-16] MEDS ORDERED: ASPIRIN 81 MG PO STA (17:10)
[2018-11-16] MEDS ORDERED: ONDANSETRON 4 MG/2 ML VIAL IVP PRN (17:29)
[2018-11-16] MEDS ORDERED: NALOXONE 0.4 MG/ML 1 ML VIAL IV PRN (17:29)
[2018-11-16] MEDS ORDERED: HYDROcodone/APAP 10-325MG 1 EACH TAB PO PRN (18:51)
[2018-11-16] MEDS ORDERED: ALBUTEROL NEBULIZED 2.5 MG/3 ML INHALATION PRN (18:51)
--- NOTE | 2018-11-16 18:51 | P.HPIM ---
History of Present Illness H&P Date: 11/16/18 Chief Complaint: Dizziness/weakness. This is a 53-year-old female one of Dr. Urias with a previous medical history significant for seizure disorder, protein S as deficiency, history of pulmonary embolism as well as DVT, on chronic anticoagulation with Coumadin, history of CV A/TIA, history of seizure disorder was recently had her Dilantin dose adjusted to 400 mg in the morning 400 at noon and 300 mg at night she's been doing this for the past week or so has not had her Dilantin level checked, patient presented to the emergency department at [facility] today because of increased dizziness and because she has been falling around after she had felt that her legs are weak and not able to hold her body, she was seen in the ER underwent computed tomography scan of the brain that didn't show evidence of left sided brain stem infarct of indeterminate age, her INR was subtherapeutic at 1.9, she was given aspirin 325 mg daily, she was admitted to the hospital for evaluation by neurology, acute stroke evaluation including carotid ultrasound and echocardiogram along with MRI of the brain with and without Done, patient also was found to have left lung mass but she did have this biopsied about [address] Hernandez and she will be seen in consultation. Review of Systems Constitutional: Reports chronic headaches, Reports weakness, Denies anorexia, Denies chronic pain, Denies lethargy, Denies malaise Eyes: denies blurred vision, denies bulging eye, denies decreased vision Ears: deny: decreased hearing Ears, nose, mouth and throat: Denies dysphagia, Denies neck lump, Denies swelling in throat, Denies sore throat Cardiovascular: Denies chest pain, Denies decreased exercise tolerance, Denies lightheadedness, Denies rapid heart beat, Denies shortness of breath, Denies syncope Respiratory: Reports sleep apnea, Reports snoring, Denies congestion, Denies cough with sputum, Denies home oxygen, Denies wheezing Gastrointestinal: Denies abdominal pain, Denies bloating, Denies BRBPR, Denies heartburn, Denies loss of appetite, Denies melena, Denies nausea, Denies vo miting Genitourinary: Denies dysuria, Denies hematuria Musculoskeletal: Reports gait dysfunction, Reports muscle weakness, Denies myalgias Musculoskeletal: absent: ankle pain, ankle stiffness, ankle swelling, elbow pain, elbow stiffness, elbow swelling, foot pain, foot stiffness, foot swelling, hand pain, hand stiffness, hand swelling, hip pain, hip stiffness, hip swelling, knee pain, knee stiffness, knee swelling, shoulder pain, shoulder stiffness, shoulder swelling, wrist pain, wrist stiffness, wrist swelling Integumentary: Denies pruritus, Denies rash Neurological: Reports balance difficulties, Reports gait dysfunction, Reports headaches, Reports seizures, Reports weakness, Denies visual changes Psychiatric: Denies anxiety, Denies depression Endocrine: Denies fatigue, Denies weight change Past Medical History Past Medical History: COPD, CVA/TIA, Deep Vein Thrombosis (DVT), Pulmonary Embolus (PE), Seizure Disorder, Sleep Apnea/CPAP/BIPAP Additional Past Medical History / Comment(s): TIA, blood clot left leg and PE left lung, last SZ 5 years; Protein disorder; Kidney stones, protein S deficiency, obesity with obstructive sleep apnea, hyperlipidemia, seizure disorder. History of Any Multi-Drug Resistant Organisms: None Reported Past Surgical History: Ablation, Tubal Ligation Additional Past Surgical History / Comment(s): Uterine ablation Past Anesthesia/Blood Transfusion Reactions: No Reported Reaction Past Psychological History: Depression Smoking Status: Current every day smoker (Patient smokes about a pack every day for 4 years she continues to smoke at this point in time.) Past Alcohol Use History: None Reported Past Drug Use History: None Reported - Past Family History Father Family Medical History: Cancer (Father at age of 64 from OR with a history of CVA and diabetes), CVA/TIA, Diabetes Mellitus, Hypertension Additional Family Medical History / Comment(s): Mother Family Medical History: Coronary Artery Disease (CAD), Diabetes Mellitus, Hypertension, Pulmonary Embolus (Mother at age of 70 from pulmonary medicine that happened after a fall) Brother(s) Family Medical History: No Reported History (Patient has 2 brothers one of them is a drug abuser.) Additional Family Medical History / Comment(s): Patient has no children. Medications and Allergies Home Medications Medication Instructions Recorded Confirmed Type Warfarin [Coumadin] 5 mg PO W/SUPPER 07/15/17 11/16/18 History Albuterol Inhaler [Ventolin Hfa 1 - 2 puff INHALATION RT-Q6H PRN 11/16/18 11/16/18 History Inhaler] Albuterol Nebulized [Ventolin 2.5 mg INHALATION RT-Q4H PRN 11/16/18 11/16/18 History Nebulized] Budesonide/Formoterol Fumarate 2 puff INHALATION RT-BID 11/16/18 11/16/18 History [Symbicort 160-4.5 Mcg Inhaler] Citalopram Hydrobromide [CeleXA] 20 mg PO DAILY 11/16/18 11/16/18 History Furosemide [Lasix] 40 mg PO Q72H PRN 11/16/18 11/16/18 History HYDROcodone/APAP 10-325MG [[place] 1 tab PO DAILY PRN 11/16/18 11/16/18 History 10-325] Meclizine [Antivert] 25 mg PO TID 11/16/18 11/16/18 History Pantoprazole Sodium 20 mg PO DAILY 11/16/18 11/16/18 History Phenytoin Sodium Extended 300 mg PO HS 11/16/18 11/16/18 History [Dilantin] Phenytoin Sodium Extended 400 mg PO BID@0800,1200 11/16/18 11/16/18 History [Dilantin] Potassium Chloride ER [K-Dur 10] 20 meq PO Q72H PRN 11/16/18 11/16/18 History Tiotropium 18 Mcg/Puff [Spiriva] 1 puff INHALATION DAILY@1200 11/16/18 11/16/18 History Umeclidinium [place] [Incruse 1 puff INHALATION RT-DAILY@1500 11/16/18 11/16/18 History Ellipta] Allergies Allergy/AdvReac Type Severity Reaction Status Date / Time Penicillins Allergy Rash/Hives Verified 11/16/18 14:11 Sulfa (Sulfonamide Allergy Rash/Hives Verified 11/16/18 14:11 Antibiotics) Physical Exam Vitals: Vital Signs Temp Pulse Resp BP Pulse Ox 11/16/18 17:15 97.6 F 83 18 129/95 100 11/16/18 12:42 97.8 F 83 20 133/88 98 Intake and Output 11/16/18 11/16/18 11/16/18 06:59 14:59 22:59 Other: Weight 131.542 kg - Constitutional General appearance: obese - EENT Eyes: anicteric sclerae, EOMI, PERRLA, no ptosis, no scleral icterus, normal appearance ENT: hearing grossly normal, NA/AT, normal oropharynx, no thrush Ears: bilateral: normal - Neck Neck: no lymphadenopathy, normal ROM, no rigidity, no stridor, no thyromegaly Carotids: bilateral: upstroke normal Thyroid: bilateral: normal size - Respiratory Respiratory: bilateral: diminished, prolonged expiration, negative: dullness, rales, rhonchi, wheezing - Cardiovascular Rhythm: regular Heart sounds: normal: S1, S2 Abnormal Heart Sounds: systolic murmur, no S3 Gallop, no S4 Gallop - Gastrointestinal General gastrointestinal: normal bowel sounds, soft, no splenomegaly, no tenderness, no umbilical hernia, no ventral hernia - Integumentary Integumentary: normal, normal turgor - Neurologic Neurologic: CNII-XII intact - Musculoskeletal Musculoskeletal: no gait normal, strength equal bilaterally - Psychiatric Psychiatric: A&O x's 3, appropriate affect, intact judgment & insight Results CBC & Chem 7: 11/16/18 14:30 11/16/18 14:30 Labs: Abnormal Lab Results - Last 24 Hours (Table) 11/16/18 11/16/18 11/16/18 Range/Units 14:30 14:30 14:30 Plt Count 130 L (150-450) k/uL PT 18.7 H (9.0-12.0) sec INR 1.9 H (<1.2) APTT 81.2 H (22.0-30.0) sec Potassium 5.7 H (3.5-5.1) mmol/L Chloride 109 H (98-107) mmol/L BUN 25 H (7-17) mg/dL Thrombosis Risk Factor Assmnt - DVT/VTE Prophylaxis DVT/VTE Prophylaxis: Pharmacologic Prophylaxis ordered, Mechanical Prophylaxis ordered Assessment and Plan Assessment: Assessment and plan: 1. Left-sided brainstem infarct of undetermined age. Start the patient on aspirin 325 mg orally once every day, start the patient on Lipitor 40 mg orally once every day, acute stroke evaluation with carotid ultrasound, echocardiogram, MRI of the brain with and without, neuro check every 2 hours for the next 24 hours, neurology evaluation. 2. History of seizure disorder. Check a stat level of Dilantin free Dilantin level as the patient did have her dose adjusted about 7 days ago without any check rule out Dilantin toxicity. 3. Left lung mass status post biopsy was done about 6 month ago. We'll consult pulmonary medicine. 4. Chronic tobacco use and dependence. Smoking cessation counseling an increased risk of CAD, CVA, and malignancy. 5. COPD. Continue patient on Ventolin, Symbicort, incruse and spiriva. 6. Obesity with sleep apnea. Continue current CPAP. 7. Depressive disorder. Continue Celexa 20 mg orally once every day. 8. DVT prophylaxis. Continue Coumadin and increase her dose to 5 mg at bedtime with 7.5 mg tonight. Check INR tomorrow morning 9. GI prophylaxis. Continue patient on Protonix 40 mg orally once every day. 10. Admitted to inpatient. Estimate length of stay 2 midnights. 11. Patient is full code.
[2018-11-16] MEDS ORDERED: WARFARIN 5 MG TAB PO SCH (19:00)
[2018-11-16] MEDS ORDERED: WARFARIN 7.5 MG TAB PO ONE (19:45)
--- NOTE | 2018-11-16 19:46 | P.CNNES ---
History of Present Illness Consult date: 11/16/18 Reason for Consult: Brain stem stroke History of Present Illness: Patient is a 53-year-old female who has history of idiopathic seizure disorder since 2001. Patient used a follow-up with Dr. Waller, but not seeing any neurologist for 4-5 years, because she lost her insurance. Patient used to be on Dilantin 400 mg in the morning and 300 mg at night. However few years ago the dose was increased to 400 mg twice a day. Patient about one week ago her dose was increased to 1100 mg per day, for reasons not known to her. She is taking 400 mg the morning, 400 mg at noon and 300 mg at night. Since then patient has been noticing imbalance, dizziness, as if she would fall. She has to hold onto the pathak. Lately she started getting numbness of her arms, she got concerned if she was having a stroke therefore came to the ER. Patient denies any slurred speech, facial droop, double vision. Patient states that her last seizure was about 2-3 years ago, when she was laying in bed, was jerking and loss control of urine and had a tongue bite. Patient also gets some staring seizures, the frequency of which she does not know. Patient states that she smokes one pack per day for 40 years. Denies any alcohol or drugs. Patient has history of protein C deficiency protein F deficiency for which she is on long-term anticoagulation. She also has COPD, obstructive sleep apnea. Denies any history of traumatic brain injury, or history of childhood epilepsy. Denies diabetes or hypertension. Patient's EKG showed normal sinus rhythm. Chest x-ray showed left hilar mass has enlarged and measures 2.9 cm versus 2.2 cm. This is felt to reflect malignancy until proven otherwise. Recommend CT. Computed tomography scan of the head showed brainstem ischemia within the left brainstem, of indeterminate age. MRI recommended. Patient's blood test shows sodium 138 potassium 5.7 renal functions are normal. Her last hemoglobin A1c 5.3 on 02/20/2017. Her cholesterol is 211, LDL 117, HDL 68. B12 487. Thyroid functions normal Review of Systems As per HPI. Denies any chest pain shortness of breath wheezing cough. Denies focal weakness. Denies abdominal pain nausea vomiting diarrhea. Past Medical History Past Medical History: COPD, CVA/TIA, Deep Vein Thrombosis (DVT), Pulmonary Embolus (PE), Seizure Disorder, Sleep Apnea/CPAP/BIPAP Additional Past Medical History / Comment(s): TIA, blood clot left leg and PE left lung, last SZ 5 years; Protein disorder; Kidney stones, protein S deficiency, obesity with obstructive sleep apnea, hyperlipidemia, seizure disorder. History of Any Multi-Drug Resistant Organisms: None Reported Past Surgical History: Ablation, Tubal Ligation Additional Past Surgical History / Comment(s): Uterine ablation Past Anesthesia/Blood Transfusion Reactions: No Reported Reaction Past Psychological History: Depression Smoking Status: Current every day smoker (Patient smokes about a pack every day for 4 years she continues to smoke at this point in time.) Past Alcohol Use History: None Reported Past Drug Use History: None Reported - Past Family History Father Family Medical History: Cancer (Father at age of 64 from [place] with a history of CVA and diabetes), CVA/TIA, Diabetes Mellitus, Hypertension Additional Family Medical History / Comment(s): Mother Family Medical History: Coronary Artery Disease (CAD), Diabetes Mellitus, Hypertension, Pulmonary Embolus (Mother at age of 70 from pulmonary medicine that happened after a fall) Brother(s) Family Medical History: No Reported History (Patient has 2 brothers one of them is a drug abuser.) Additional Family Medical History / Comment(s): Patient has no children. Medications and Allergies Home Medications Medication Instructions Recorded Confirmed Type Warfarin [Coumadin] 5 mg PO W/SUPPER 07/15/17 11/16/18 History Albuterol Inhaler [Ventolin Hfa 1 - 2 puff INHALATION RT-Q6H PRN 11/16/18 11/16/18 History Inhaler] Albuterol Nebulized [Ventolin 2.5 mg INHALATION RT-Q4H PRN 11/16/18 11/16/18 History Nebulized] Budesonide/Formoterol Fumarate 2 puff INHALATION RT-BID 11/16/18 11/16/18 History [Symbicort 160-4.5 Mcg Inhaler] Citalopram Hydrobromide [CeleXA] 20 mg PO DAILY 11/16/18 11/16/18 History Furosemide [Lasix] 40 mg PO Q72H PRN 11/16/18 11/16/18 History HYDROcodone/APAP 10-325MG [[place] 1 tab PO DAILY PRN 11/16/18 11/16/18 History 10-325] Meclizine [Antivert] 25 mg PO TID 11/16/18 11/16/18 History Pantoprazole Sodium 20 mg PO DAILY 11/16/18 11/16/18 History Phenytoin Sodium Extended 300 mg PO HS 11/16/18 11/16/18 History [Dilantin] Phenytoin Sodium Extended 400 mg PO BID@0800,1200 11/16/18 11/16/18 History [Dilantin] Potassium Chloride ER [K-Dur 10] 20 meq PO Q72H PRN 11/16/18 11/16/18 History Tiotropium 18 Mcg/Puff [Spiriva] 1 puff INHALATION DAILY@1200 11/16/18 11/16/18 History Umeclidinium [place] [Incruse 1 puff INHALATION RT-DAILY@1500 11/16/18 11/16/18 History Ellipta] Allergies Allergy/AdvReac Type Severity Reaction Status Date / Time Penicillins Allergy Rash/Hives Verified 11/16/18 14:11 Sulfa (Sulfonamide Allergy Rash/Hives Verified 11/16/18 14:11 Antibiotics) Physical Examination - Vital Signs Vital Signs: Vital Signs Temp Pulse Resp BP Pulse Ox 11/16/18 17:15 97.6 F 83 18 129/95 100 11/16/18 12:42 97.8 F 83 20 133/88 98 Intake and Output 11/16/18 11/16/18 11/16/18 06:59 14:59 22:59 Other: Weight 131.542 kg On examination patient is a middle aged female, slightly obese, in no distress. Patient is alert awake oriented Pleasant person. Speech and language functions recent remote memory normal. Attention and concentration fund of knowledge adequate on cranial nerve examination pupils are round and reactive to light. Visual goetz are full, extraocular muscles are intact with slight nystagmus looking to the right. Face is symmetric and tongue protrudes the midline. On muscle strength testing there is no pronator drift and the strength is normal in arms and legs distally and proximally. Reflexes are 2 in the upper limbs, 2+ at the right knee, 2 on left. Ankles are 2 on the right 1 on the left and plantar is up on the right and down on left. Sensory to touch is equal. No ataxia for [id number]. Tone and bulk of muscles normal Results - Laboratory Findings CBC and BMP: 11/16/18 14:30 11/16/18 14:30 Abnormal Lab Findings: Abnormal Labs 11/16/18 11/16/18 11/16/18 14:30 14:30 14:30 Plt Count 130 L PT 18.7 H INR 1.9 H APTT 81.2 H Potassium 5.7 H Chloride 109 H BUN 25 H Assessment and Plan Assessment: * Gait imbalance, ataxia, dizziness, likely from Dilantin toxicity. Her dose of Dilantin was recently increased about a week ago. * Abnormal brain computed tomography scan, indicating left pontine stroke, probably subacute to chronic. * History of seizure disorder, none for last 1 year. * Patient's reported history of protein S and protein C deficiency, on anticoagulation. * Tobacco user * Hyperlipidemia * Hypertension * Obesity * Obstructive sleep apnea Plan: * Stat Dilantin level. * MRI of the brain * Carotid Doppler to rule out stenosis. * Patient started on aspirin regimen. * Echocardiogram to rule out embolic source. Patient already on anticoagulation. INR 1.9. * Tobacco cessation
[2018-11-16] MEDS: SYMBICORT 160-4.5 MCG INHALER INHALATION SCH (20:55)
[2018-11-16] MEDS ORDERED: PHENYTOIN SODIUM EXTENDED 100 MG CAP PO SCH (21:00)
[2018-11-16] MEDS: IPRATROPIUM 0.5 MG/2.5 ML NEBU INHALATION SCH (21:00)
[2018-11-17] MEDS: NICOTINE 21MG/24HR PATCH TRANSDERM SCH ×2 (00:09→09:57)
[2018-11-17 05:27] LABS: Cholesterol 215 mg/dL (<200); HDL Cholesterol 57 mg/dL (40-60); LDL Cholesterol,Calculated 110 mg/dL (0-99); Triglycerides 240 mg/dL (<150)
[2018-11-17] MEDS: SYMBICORT 160-4.5 MCG INHALER INHALATION SCH ×2 (06:49→19:21)
[2018-11-17] MEDS: IPRATROPIUM 0.5 MG/2.5 ML NEBU INHALATION SCH ×3 (06:49→15:10)
[2018-11-17 07:15] LABS: Partial Thromboplastin Time 80.9 sec (22.0-30.0); Prothrombin Time 19.2 sec (9.0-12.0)
[2018-11-17] MEDS ORDERED: PHENYTOIN SODIUM EXTENDED 100 MG CAP PO SCH (08:00)
--- NOTE | 2018-11-17 08:08 | US ---
EXAMINATION TYPE: US carotid duplex BILAT DATE OF EXAM: 11/17/2018 COMPARISON: NONE CLINICAL HISTORY: CVA. Dizziness, exam done portable in ICU. EXAM MEASUREMENTS: RIGHT: Peak Systolic Velocity (PSV) cm/sec ----- Right CCA: 74.3 ----- Right ICA: 62.9 ----- Right ECA: 67.2 ICA/CCA ratio: 0.8 RIGHT: End Diastole cm/sec ----- Right CCA: 28.1 ----- Right ICA: 24.5 ----- Right ECA: 5.6 LEFT: Peak Systolic Velocity (PSV) cm/sec ----- Left CCA: 47.9 ----- Left ICA: 71.1 ----- Left ECA: 112.8 ICA/CCA ratio: 1.5 LEFT: End Diastole cm/sec ----- Left CCA: 18.7 ----- Left ICA: 25.9 ----- Left ECA: 8.6 VERTEBRALS (direction of flow): Right Vertebral: Antegrade Left Vertebral: Antegrade Rhythm: Normal Difficult and limited study due to patient body habitus, heavy breathing during exam, and torturous vessels. Bilateral intimal thickening, minimal plaque bilateral bulb, no elevated velocities, no significant s tenosis. IMPRESSION: 1. Atheromatous plaquing without significant flow-limiting stenosis. Criteria for Assigning % of Stenosis / Diameter reduction (Estimation based on the indirect measurements of the internal carotid artery velocities (ICA PSV). 1. Normal (no stenosis)=ICA PSV < 125 cm/s: ratio < 2.0: ICA EDV<40 cm/s. 2. Less than 50% stenosis=ICA PSV < 125 cm/s: ratio < 2.0: ICA EDV<40 cm/s. 3. 50 to 69% stenosis=ICA PSV of 125 to 230 cm/s: ration 2.0 ? 4.0: ICA EDV 40-100 cm/s. 4. Greater than 70% stenosis to near occlusion= ICA PSV > 230 cm/s: ratio > 4.0: ICA EDV > 100 cm/s. 5. Near occlusion= ICA PSV velocities may be low or undetectable: variable ratio and ICA EDV. 6. Total occlusion=unable to detect flow.
[2018-11-17] MEDS: SODIUM CHLORIDE 0.9% 1,000 ML IV SCH ×2 (08:30→20:16)
[2018-11-17 08:36] LABS: Basophils % (A) 1 %; Eosinophils # (A) 0.2 k/uL (0-0.7); Eosinophils % (A) 3 %; HCT 38.8 % (34.0-46.0); HGB 12.3 gm/dL (11.4-16.0); Lymphocytes # (A) 1.9 k/uL (1.0-4.8); Lymphocytes % (A) 31 %; MCH 28.8 pg (25.0-35.0); MCHC 31.8 g/dL (31.0-37.0); MCV 90.5 fL (80.0-100.0); Mean Platelet Volume 7.6; Monocytes # (A) 0.5 k/uL (0-1.0); Monocytes % (A) 8 %; Neutrophils # (A) 3.3 k/uL (1.3-7.7); Neutrophils % (A) 55 %; Platelet Count 121 k/uL (150-450); RBC 4.28 m/uL (3.80-5.40); RDW 14.6 % (11.5-15.5); WBC 5.9 k/uL (3.8-10.6)
[2018-11-17 08:44] LABS: Albumin 3.8 g/dL (3.5-5.0); Calcium 8.8 mg/dL (8.4-10.2); Potassium 4.7 mmol/L (3.5-5.1); Total Bilirubin 0.4 mg/dL (0.2-1.3); Total Protein 7.1 g/dL (6.3-8.2)
--- NOTE | 2018-11-17 08:50 | P.NPCON ---
History of Present Illness - Reason for Consult acute renal failure - History of Present Illness Reason for admission: Dilantin toxicity History of present illness: Patient is a 53-year-old female seen in renal consultation for Dilantin toxicity. Patient has history of seizures and is maintained on Dilantin outpatient. Patient states outpatient her Dilantin level was low and the dose was increased to 4 tabs in the morning and 4 tabs in the evening. However there was some confusion with the pharmacy and patient was actually taking a total of 11 tabs daily. Patient states she felt weak. She was also dizzy for the last 2 days. She denies syncopal episodes. On admission her Dilantin level was 37.8 and is down to 33.7 today. Dilantin is currently held although she did receive 300 mg in the ER last night. She admits to good urine output. No hematuria or dysuria. No vomiting or diarrhea. No abdominal discomfort. Denies history of kidney disease. GFR is currently at baseline. No family history of renal disease. No history of diabetes. Hemodynamically stable. No fever or chills. Vital signs are stable. General: The patient appeared well nourished and normally developed. HEENT: Head exam is unremarkable. Neck is without jugular venous distension. LUNGS: Lungs are clear to auscultation and percussion. Breath sounds decreased. HEART: Rate and Rhythm are regular. First and second heart sounds normal. No murmurs, rubs or gallops. ABDOMEN: Abdominal exam reveals normal bowel sounds. Non-tender and non- distended. No evidence of peritonitis. EXTREMITITES: No clubbing, cyanosis, or edema. Past Medical History Past Medical History: COPD, CVA/TIA, Deep Vein Thrombosis (DVT), Pulmonary Embolus (PE), Seizure Disorder, Sleep Apnea/CPAP/BIPAP Additional Past Medical History / Comment(s): TIA, blood clot left leg and PE left lung, last SZ 5 years; Protein disorder; Kidney stones, protein S deficiency, obesity with obstructive sleep apnea, hyperlipidemia, seizure disorder. History of Any Multi-Drug Resistant Organisms: None Reported Past Surgical History: Ablation, Tubal Ligation Additional Past Surgical History / Comment(s): Uterine ablation Past Anesthesia/Blood Transfusion Reactions: No Reported Reaction Past Psychological History: Depression Smoking Status: Current every day smoker (Patient smokes about a pack every day for 4 years she continues to smoke at this point in time.) Past Alcohol Use History: None Reported Past Drug Use History: None Reported - Past Family History Father Family Medical History: Cancer (Father at age of 64 from [place] with a history of CVA and diabetes), CVA/TIA, Diabetes Mellitus, Hypertension Additional Family Medical History / Comment(s): Mother Family Medical History: Coronary Artery Disease (CAD), Diabetes Mellitus, Hypertension, Pulmonary Embolus (Mother at age of 70 from pulmonary medicine that happened after a fall) Brother(s) Family Medical History: No Reported History (Patient has 2 brothers one of them is a drug abuser.) Additional Family Medical History / Comment(s): Patient has no children. Medications and Allergies Home Medications Medication Instructions Recorded Confirmed Type Warfarin [Coumadin] 5 mg PO W/SUPPER 07/15/17 11/16/18 History Albuterol Inhaler [Ventolin Hfa 1 - 2 puff INHALATION RT-Q6H PRN 11/16/18 11/16/18 History Inhaler] Albuterol Nebulized [Ventolin 2.5 mg INHALATION RT-Q4H PRN 11/16/18 11/16/18 History Nebulized] Budesonide/Formoterol Fumarate 2 puff INHALATION RT-BID 11/16/18 11/16/18 History [Symbicort 160-4.5 Mcg Inhaler] Citalopram Hydrobromide [CeleXA] 20 mg PO DAILY 11/16/18 11/16/18 History Furosemide [Lasix] 40 mg PO Q72H PRN 11/16/18 11/16/18 History HYDROcodone/APAP 10-325MG [[place] 1 tab PO DAILY PRN 11/16/18 11/16/18 History 10-325] Meclizine [Antivert] 25 mg PO TID 11/16/18 11/16/18 History Pantoprazole Sodium 20 mg PO DAILY 11/16/18 11/16/18 History Phenytoin Sodium Extended 300 mg PO HS 11/16/18 11/16/18 History [Dilantin] Phenytoin Sodium Extended 400 mg PO BID@0800,1200 11/16/18 11/16/18 History [Dilantin] Potassium Chloride ER [K-Dur 10] 20 meq PO Q72H PRN 11/16/18 11/16/18 History Tiotropium 18 Mcg/Puff [Spiriva] 1 puff INHALATION DAILY@1200 11/16/18 11/16/18 History Umeclidinium [place] [Incruse 1 puff INHALATION RT-DAILY@1500 11/16/18 11/16/18 History Ellipta] Allergies Allergy/AdvReac Type Severity Reaction Status Date / Time Penicillins Allergy Rash/Hives Verified 11/16/18 14:11 Sulfa (Sulfonamide Allergy Rash/Hives Verified 11/16/18 14:11 Antibiotics) Physical Exam Vitals: Vital Signs Temp Pulse Pulse Resp BP BP Pulse Ox 11/17/18 07:03 70 16 11/17/18 07:00 73 18 139/95 100 11/17/18 06:52 75 16 11/17/18 06:27 97.8 F 73 12 139/95 95 11/17/18 04:45 97.1 F L 75 18 120/61 96 11/17/18 00:13 97.3 F L 83 20 130/60 99 11/16/18 22:17 98.2 F 79 18 130/60 96 11/16/18 21:05 84 16 11/16/18 20:59 84 16 11/16/18 20:25 98.1 F 78 16 155/82 98 11/16/18 20:00 98.1 F 78 16 155/82 98 11/16/18 17:15 97.6 F 83 18 129/95 100 11/16/18 12:42 97.8 F 83 20 133/88 98 Intake and Output 11/16/18 11/17/18 11/17/18 22:59 06:59 14:59 Intake Total 100 Output Total 100 Balance 0 Intake: IV 100 Sodium Chloride 0.9% 1, 100 000 ml @ 100 mls/hr IV . Q10H [facility] Rx#:[id number] Output: Urine 100 Other: Voiding Method Toilet Bedside Commode # Voids 1 Weight 131.8 kg Results - Lab Results Most recent lab results Calcium 8.6 mg/dL (8.4-10.2) 11/16/18 14:30 11/17/18 06:52 11/16/18 14:30 Assessment and Plan Plan: Assessment: 1. Mild Dilantin toxicity as the patient was taking more than the prescribed dose. Dilantin level was 37.8 on admission and is 33.7 today. Patient's GFR is at baseline and she has good urine output. 2. History of seizure disorder. Neurology following. 3. Mild hyperkalemia. It appears patient was taking potassium supplementation outpatient. Plan: I will decrease rate of normal saline to 75 mL an hour. Low potassium diet. Check potassium level today. Hold Dilantin for now. No need for renal replacement therapy at this time. Thank you for the consultation. I will continue to follow the patient with you during her hospital stay.
[2018-11-17] MEDS ORDERED: ASPIRIN 81 MG PO SCH (09:00)
[2018-11-17] MEDS: PANTOPRAZOLE 40 MG/10 ML VIAL IV SCH (09:57)
[2018-11-17] MEDS: ASPIRIN 325 MG TAB PO SCH (09:57)
[2018-11-17] MEDS: CITALOPRAM HYDROBROMIDE 20 MG TAB PO SCH (09:57)
--- NOTE | 2018-11-17 13:19 | P.PN ---
Subjective Progress Note Date: 11/17/18 This is a 53-year-old female one of Dr. Urias with a previous medical history significant for seizure disorder, protein S as deficiency, history of pulmonary embolism as well as DVT, on chronic anticoagulation with Coumadin, history of CVA/TIA, history of seizure disorder was recently had her Dilantin dose adjusted to 400 mg in the morning 400 at noon and 300 mg at night she's been doing this for the past week or so has not had her Dilantin level checked, patient presented to the emergency department at [facility] today because of increased dizziness and because she has been falling around after she had felt that her legs are weak and not able to hold her body, she was seen in the ER underwent computed tomography scan of the brain that didn't show evidence of left sided brain stem infarct of indeterminate age, her INR was subtherapeutic at 1.9, she was given aspirin 325 mg daily, she was admitted to the hospital for evaluation by neurology, acute stroke evaluation including carotid ultrasound and echocardiogram along with MRI of the brain with and without Done, patient also was found to have left lung mass but she did have this biopsied about [address] Lambert and she will be seen in consultation. 11/17: Carotid ultrasound showed plaquing without significant flow limiting stenosis. Patient has been seen by Dr. Darby with recommendations for MRI of the brain, echocardiogram, tobacco cessation, aspirin. Patient has been seen by Dr. Quach for mild Dilantin toxicity and IV fluids increased to 75 mL per hour, low potassium diet and hold Dilantin. Repeat Dilantin level was 33.7 down from 37.8. INR is 2. Platelet count is 121. BUN is 21 and creatinine 1.05. Patient states that she is feeling a little bit lightheaded. We'll plan to monitor in the intensive care unit for the next 24 hours. Objective - Vital Signs Vital signs: Vital Signs Temp 97.9 F 11/17/18 08:00 Pulse 78 11/17/18 10:00 Resp 20 11/17/18 10:00 BP 139/86 11/17/18 10:00 Pulse Ox 96 11/17/18 10:00 Intake & Output 11/16/18 11/17/18 11/17/18 18:59 06:59 18:59 Intake Total 350 Output Total 250 Balance 100 Weight 131.542 kg 131.8 kg Intake: IV 350 Sodium Chloride 0.9% 1, 350 000 ml @ 75 mls/hr IV . [id number] [facility] Rx#:[id number] Output: Urine 250 Other: Voiding Method Bedside Commode # Voids 1 400 # Bowel Movements 1 - Exam Review of Systems Constitutional: Reports chronic headaches, Reports weakness, reports fatigue, Denies anorexia, Denies chronic pain, Denies lethargy, Denies malaise Eyes: denies blurred vision, denies bulging eye, denies decreased vision Ears: deny: decreased hearing Ears, nose, mouth and throat: Denies dysphagia, Denies neck lump, Denies swelling in throat, Denies sore throat Cardiovascular: Denies chest pain, Denies decreased exercise tolerance, reports lightheadedness, Denies rapid heart beat, Denies shortness of breath, Denies syncope Respiratory: Reports sleep apnea, Reports snoring, Denies congestion, Denies cough with sputum, Denies home oxygen, Denies wheezing Gastrointestinal: Denies abdominal pain, Denies bloating, Denies BRBPR, Denies heartburn, Denies loss of appetite, Denies melena, Denies nausea, Denies vomiting Genitourinary: Denies dysuria, Denies hematuria Musculoskeletal: Reports gait dysfunction, Reports muscle weakness, Denies myalgias Musculoskeletal: absent: ankle pain, ankle stiffness, ankle swelling, elbow pain, elbow stiffness, elbow swelling, foot pain, foot stiffness, foot swelling, hand pain, hand stiffness, hand swelling, hip pain, hip stiffness, hip swelling, knee pain, knee stiffness, knee swelling, shoulder pain, shoulder stiffness, shoulder swelling, wrist pain, wrist stiffness, wrist swelling Integumentary: Denies pruritus, Denies rash Neurological: Reports balance difficulties, Reports gait dysfunction, Reports headaches, Reports seizures, Reports weakness, Denies visual changes Psychiatric: Denies anxiety, Denies depression Endocrine: Reports fatigue, Denies weight change Physical exam: - Constitutional General appearance: obese, patient is resting comfortably in an ICU bed. - EENT Eyes: anicteric sclerae, EOMI, PERRLA, no ptosis, no scleral icterus, normal appearance ENT: hearing grossly normal, NA/AT, normal oropharynx, no thrush Ears: bilateral: normal - Neck Neck: no lymphadenopathy, normal ROM, no rigidity, no stridor, no thyromegaly Carotids: bilateral: upstroke normal Thyroid: bilateral: normal size - Respiratory Respiratory: bilateral: diminished, prolonged expiration, negative: dullness, rales, rhonchi, wheezing - Cardiovascular Rhythm: regular Heart sounds: normal: S1, S2 Abnormal Heart Sounds: systolic murmur, no S3 Gallop, no S4 Gallop - Gastrointestinal General gastrointestinal: normal bowel sounds, soft, no splenomegaly, no tenderness, no umbilical hernia, no ventral hernia - Integumentary Integumentary: normal, normal turgor - Neurologic Neurologic: CNII-XII intact - Musculoskeletal Musculoskeletal: no gait normal, strength equal bilaterally - Psychiatric Psychiatric: A&O x's 3, appropriate affect, intact judgment & insight - Labs CBC & Chem 7: 11/17/18 06:52 11/17/18 06:52 Labs: Abnormal Lab Results - Last 24 Hours (Table) 11/16/18 11/16/18 11/16/18 Range/Units 14:30 14:30 14:30 Plt Count 130 L (150-450) k/uL PT 18.7 H (9.0-12.0) sec INR 1.9 H (<1.2) APTT 81.2 H (22.0-30.0) sec Potassium 5.7 H (3.5-5.1) mmol/L Chloride 109 H (98-107) mmol/L BUN 25 H (7-17) mg/dL Creatinine (0.52-1.04) mg/dL Triglycerides (<150) mg/dL Cholesterol (<200) mg/dL LDL Cholesterol, Calc (0-99) mg/dL Phenytoin ug/mL 11/16/18 11/16/18 11/17/18 Range/Units 14:30 20:47 06:52 Plt Count (150-450) k/uL PT 19.2 H (9.0-12.0) sec INR 2.0 H (<1.2) APTT 80.9 H (22.0-30.0) sec Potassium (3.5-5.1) mmol/L Chloride (98-107) mmol/L BUN (7-17) mg/dL Creatinine (0.52-1.04) mg/dL Triglycerides 240 H (<150) mg/dL Cholesterol 215 H (<200) mg/dL LDL Cholesterol, Calc 110 H (0-99) mg/dL Phenytoin 37.8 H* ug/mL 11/17/18 11/17/18 11/17/18 Range/Units 06:52 06:52 06:52 Plt Count 121 L (150-450) k/uL PT (9.0-12.0) sec INR (<1.2) APTT (22.0-30.0) sec Potassium (3.5-5.1) mmol/L Chloride 112 H (98-107) mmol/L BUN 21 H (7-17) mg/dL Creatinine 1.05 H (0.52-1.04) mg/dL Triglycerides (<150) mg/dL Cholesterol (<200) mg/dL LDL Cholesterol, Calc (0-99) mg/dL Phenytoin 33.7 H* ug/mL Assessment and Plan Plan: 1. Left-sided brainstem infarct probably subacute to chronic. Continue aspirin 325 mg orally once every day, Lipitor 40 mg orally once every day, carotid ultrasound as above, echocardiogram, MRI of the brain with and without, neuro check every 2 hours for the next 24 hours, neurology consultation appreciated. 2. Dilantin toxicity with history of seizure disorder. Dilantin is currently on hold. Dr. Quach on consult. Continue IV fluids. 3. Left lung mass status post biopsy was done about 6 month [address] Lambert. 4. Chronic tobacco use and dependence. Smoking cessation counseling an increased risk of CAD, CVA, and malignancy. 5. COPD. Continue patient on Ventolin, Symbicort, incruse and spiriva. 6. Obesity with sleep apnea. Continue current CPAP. 7. Recurrent depression. Continue Celexa 20 mg orally once every day. 8. DVT prophylaxis. Continue Coumadin and increase her dose to 5 mg at bedtime with 7.5 mg tonight. Check INR tomorrow morning 9. GI prophylaxis. Continue patient on Protonix 40 mg orally once every day. 10. History of protein S and protein C deficiency on anticoagulation. 11. Patient is full code. Discharge plan: To be determined. Most likely return home. Impression and plan of care have been directed as dictated by the signing physician. Rukhsana Og nurse practitioner acting as scribe for signing physi nilo.
[2018-11-17] MEDS ORDERED: NON-FORMULARY DRUG (Umeclidinium Bromide [Incruse Ellipta] 1 PUFF) INHALATION SCH (15:00)
--- NOTE | 2018-11-17 15:18 | MR ---
EXAMINATION TYPE: MR brain wo con DATE OF EXAM: 11/17/2018 COMPARISON: CT brain 11/16/2017 HISTORY: Leg weakness and dizziness CONTRAST: Performed utilizing mL intravenous gadolinium contrast. TECHNIQUE: Multiplanar, multiecho imaging on a 3.0 [place] magnet is performed through the brain. Stud y is performed within 24 hours of arrival to the hospital. The craniovertebral junction is normal. The pituitary is normal. Diffusion-weighted imaging is performed. No abnormal hyperintensity is present to suggest an acute i ntracranial infarct or acute ischemic change. Attention is paid to the brainstem. No acute brainstem signal abnormalities evident. The area of abnormality on the CT examination is not reproduced on the T2 or inversion recovery weighted sequences. There are scattered small areas of hyperintensity on inversion recovery weighted sequences including the right cerebellum and multiple numerous periventricular white matter changes perpendicular to the corpus callosum and ventricles. The findings are nonspecific but can be suggestive for multiple scler osis. Largest lesions include a right centrum semiovale plaque in the frontal lobe measuring 0.6 x 0.7 cm t he right centrum semiovale deep white matter change measuring 0.6 x 0.7 cm and the right cerebellar f inding measuring 0.6 x 1.0 cm. Ventricles and sulci are appropriate for the patient age. IMPRESSIONS: 1. Scattered white matter changes which can be suggestive for, although not diagnostic of multiple sc lerosis. Other etiologies such as chronic white matter ischemic change and vasculitis should be consi dered. 2. Attention is paid to the brainstem. Corresponding abnormality to the CT finding is not evident. No acute changes within the brainstem are evident, no chronic changes are evident suggesting this CT fi nding was artifact.
--- NOTE | 2018-11-17 15:44 | P.CNPUL ---
History of Present Illness Consult date: 11/17/18 Reason for consult: lung mass Chief complaint: Weakness History of present illness: This is a 53-year-old female who presented emergency department complaining of generalized weakness and blurry vision. She states she thought she was having a stroke. She states she couldn't lay down because she was having headaches. There is an apparent miscommunication on how much Dilantin the patient should take. She states I took too much Dilantin. She was found to have Dilantin toxicity upon admission. She was also found to have a possible subacute to chronic brainstem stroke. On chest x-ray the patient was found to have a left hilar lung mass. This has been biopsied and worked up in the past. However we will repeat a CT of the chest. Patient is aware that she may need repeat biopsy. The patient does continue to smoke. She states she has tried to quit. She does have obstructive sleep apnea and is compliant with her CPAP. Review of Systems All systems: negative Past Medical History Past Medical History: COPD, CVA/TIA, Deep Vein Thrombosis (DVT), GERD/Reflux, Hyperlipidemia, Pneumonia, Pulmonary Embolus (PE), Seizure Disorder, Sleep Apnea/CPAP/BIPAP Additional Past Medical History / Comment(s): TIA, blood clot left leg and PE left lung, last seizure 2-3 years ago, bronchitis, kidney stones, protein S deficiency, obstructive sleep apnea with CPap use, past L heel fracture, occasional bilateral ankle edema, falls. History of Any Multi-Drug Resistant Organisms: None Reported Past Surgical History: Ablation, Tubal Ligation, Uterine Ablation Additional Past Surgical History / Comment(s): D&C, tubal ligation, bronchoscopy with L lung bx. Past Anesthesia/Blood Transfusion Reactions: No Reported Reaction Smoking Status: Current every day smoker - Past Family History Father Family Medical History: Cancer, CVA/TIA, Diabetes Mellitus, Hypertension Additional Family Medical History / Comment(s): Mother Family Medical History: Coronary Artery Disease (CAD), CVA/TIA, Diabetes Mellitus, Hypertension, Pulmonary Embolus Additional Family Medical History / Comment(s): Mother of a CVA at the age of 71 yrs. Brother(s) Family Medical History: No Reported History Additional Family Medical History / Comment(s): Patient has no children. Medications and Allergies Home Medications Medication Instructions Recorded Confirmed Type Warfarin [Coumadin] 5 mg PO W/SUPPER 07/15/17 11/16/18 History Albuterol Inhaler [Ventolin Hfa 1 - 2 puff INHALATION RT-Q6H PRN 11/16/18 11/16/18 History Inhaler] Albuterol Nebulized [Ventolin 2.5 mg INHALATION RT-Q4H PRN 11/16/18 11/16/18 History Nebulized] Budesonide/Formoterol Fumarate 2 puff INHALATION RT-BID 11/16/18 11/16/18 History [Symbicort 160-4.5 Mcg Inhaler] Citalopram Hydrobromide [CeleXA] 20 mg PO DAILY 11/16/18 11/16/18 History Furosemide [Lasix] 40 mg PO Q72H PRN 11/16/18 11/16/18 History HYDROcodone/APAP 10-325MG [[place] 1 tab PO DAILY PRN 11/16/18 11/16/18 History 10-325] Meclizine [Antivert] 25 mg PO TID 11/16/18 11/16/18 History Pantoprazole Sodium 20 mg PO DAILY 11/16/18 11/16/18 History Phenytoin Sodium Extended 300 mg PO HS 11/16/18 11/16/18 History [Dilantin] Phenytoin Sodium Extended 400 mg PO BID@0800,1200 11/16/18 11/16/18 History [Dilantin] Potassium Chloride ER [K-Dur 10] 20 meq PO Q72H PRN 11/16/18 11/16/18 History Tiotropium 18 Mcg/Puff [Spiriva] 1 puff INHALATION DAILY@1200 11/16/18 11/16/18 History Umeclidinium [place] [Incruse 1 puff INHALATION RT-DAILY@1500 11/16/18 11/16/18 History Ellipta] Allergies Allergy/AdvReac Type Severity Reaction Status Date / Time Penicillins Allergy Rash/Hives Verified 11/16/18 14:11 Sulfa (Sulfonamide Allergy Rash/Hives Verified 11/16/18 14:11 Antibiotics) Physical Exam Osteopathic Statement: *. No significant issues noted on an osteopathic struct ural exam other than those noted in the History and Physical/Consult. Vitals: Vital Signs Temp Pulse Pulse Resp BP BP Pulse Ox 11/17/18 15:21 74 11/17/18 15:11 80 97 11/17/18 15:00 71 12 148/98 99 11/17/18 14:15 80 11 L 135/84 96 11/17/18 14:00 70 11 L 94 L 11/17/18 13:45 80 19 94 L 11/17/18 13:30 73 16 137/89 94 L 11/17/18 13:00 77 24 133/108 97 11/17/18 12:00 98 F 75 73 24 150/107 97 11/17/18 11:07 71 16 11/17/18 11:00 79 26 H 129/88 99 11/17/18 10:56 78 16 11/17/18 10:00 78 20 139/86 96 11/17/18 09:00 76 20 155/136 98 11/17/18 08:20 73 20 96 11/17/18 08:00 97.9 F 76 17 143/100 96 11/17/18 07:03 70 16 11/17/18 07:00 73 18 139/95 100 11/17/18 06:52 75 16 11/17/18 06:27 97.8 F 73 12 139/95 95 11/17/18 04:45 97.1 F L 75 18 120/61 96 11/17/18 00:13 97.3 F L 83 20 130/60 99 11/16/18 22:17 98.2 F 79 18 130/60 96 11/16/18 21:05 84 16 11/16/18 20:59 84 16 11/16/18 20:25 98.1 F 78 16 155/82 98 11/16/18 20:00 98.1 F 78 16 155/82 98 11/16/18 17:15 97.6 F 83 18 129/95 100 Intake and Output 11/17/18 11/17/18 11/17/18 06:59 14:59 22:59 Intake Total 575 75 Output Total 250 Balance 325 75 Intake: IV 575 75 Sodium Chloride 0.9% 1, 575 75 000 ml @ 75 mls/hr IV . [id number] [facility] Rx#:[id number] Output: Urine 250 Other: Voiding Method Bedside Commode Bedside Commode # Voids 1 1 1 # Bowel Movements 1 Weight 131.8 kg Gen.: Patient is alert and oriented 3, no acute distress, obese Cardiovascular: Regular rate and rhythm, S1/S2 Lungs: Diminished breath sounds bilaterally with scattered expiratory wheezing Abdomen: Soft nontender nondistended positive bowel sounds Extremities: No edema Results - Laboratory Findings CBC and BMP: 11/17/18 06:52 11/17/18 06:52 PT/INR, D-dimer PT 19.2 sec (9.0-12.0) H 11/17/18 06:52 INR 2.0 (<1.2) H 11/17/18 06:52 Abnormal lab findings: Abnormal Labs 11/16/18 11/16/18 11/16/18 14:30 14:30 14:30 Plt Count 130 L PT 18.7 H INR 1.9 H APTT 81.2 H Potassium 5.7 H Chloride 109 H BUN 25 H Creatinine Triglycerides Cholesterol LDL Cholesterol, Calc Phenytoin 11/16/18 11/16/18 11/17/18 14:30 20:47 06:52 Plt Count PT 19.2 H INR 2.0 H APTT 80.9 H Potassium Chloride BUN Creatinine Triglycerides 240 H Cholesterol 215 H LDL Cholesterol, Calc 110 H Phenytoin 37.8 H* 11/17/18 11/17/18 11/17/18 06:52 06:52 06:52 Plt Count 121 L PT INR APTT Potassium Chloride 112 H BUN 21 H Creatinine 1.05 H Triglycerides Cholesterol LDL Cholesterol, Calc Phenytoin 33.7 H* - Diagnostic Findings Chest x-ray: report reviewed, image reviewed Assessment and Plan Assessment: Generalized weakness, Dilantin toxicity Left hilar lung mass COPD Obstructive sleep apnea, compliant with CPAP Weight matter changes on MRI possible MS Active tobacco abuse Obesity Depression History of DVT and PE History of seizure disorder Protein C and S deficiency Dyslipidemia Hypertension Coumadin coagulopathy, subtherapeutic O2 to maintain saturation greater than or equal to 90% Symbicort Duo nebs Singulair CT of the chest Smoking cessation is hightly recommended Incentive spirometry and pulmonary hygiene Outpatient pulmonary function test Sputum culture Neurology and nephrology recommendations GI and DVT prophylaxis Thank you for this consultation we'll continue to follow along
--- NOTE | 2018-11-17 15:54 | P.PN ---
Subjective Progress Note Date: 11/17/18 Patient offers no new complaints. Still with some dizziness, and nystagmus. Patient's Dilantin level was 37.8, which has come down to 33.7. Carotid Doppler showed atheromatous plaquing without significant stenosis. MRI of the brain showed scattered white matter changes which can be suggestive for, although not diagnostic of multiple sclerosis. Other etiologies such as chronic white matter ischemic change and vasculitis should be considered. No evidence of acute or chronic ischemia involving the brainstem or pontine region. The abnormality seen in the computed tomography scan was probably artifactual. Objective - Vital Signs Vital signs: Vital Signs Temp 98 F 11/17/18 12:00 Pulse 74 11/17/18 15:21 Resp 12 11/17/18 15:00 BP 148/98 11/17/18 15:00 Pulse Ox 97 11/17/18 15:11 Intake & Output 11/16/18 11/17/18 11/17/18 18:59 06:59 18:59 Intake Total 650 Output Total 250 Balance 400 Weight 131.542 kg 131.8 kg Intake: IV 650 Sodium Chloride 0.9% 1, 650 000 ml @ 75 mls/hr IV . [id number] [facility] Rx#:[id number] Output: Urine 250 Other: Voiding Method Bedside Commode Bedside Commode # Voids 1 1 # Bowel Movements 1 - Exam Patient is alert and awake, in no distress. Her mental status is normal. Strength is normal. No ataxia. She has nystagmus. - Labs CBC & Chem 7: 11/17/18 06:52 11/17/18 06:52 Labs: Abnormal Lab Results - Last 24 Hours (Table) 11/16/18 11/16/18 11/17/18 Range/Units 14:30 20:47 06:52 Plt Count (150-450) k/uL PT 19.2 H (9.0-12.0) sec INR 2.0 H (<1.2) APTT 80.9 H (22.0-30.0) sec Chloride (98-107) mmol/L BUN (7-17) mg/dL Creatinine (0.52-1.04) mg/dL Triglycerides 240 H (<150) mg/dL Cholesterol 215 H (<200) mg/dL LDL Cholesterol, Calc 110 H (0-99) mg/dL Phenytoin 37.8 H* ug/mL 11/17/18 11/17/18 11/17/18 Range/Units 06:52 06:52 06:52 Plt Count 121 L (150-450) k/uL PT (9.0-12.0) sec INR (<1.2) APTT (22.0-30.0) sec Chloride 112 H (98-107) mmol/L BUN 21 H (7-17) mg/dL Creatinine 1.05 H (0.52-1.04) mg/dL Triglycerides (<150) mg/dL Cholesterol (<200) mg/dL LDL Cholesterol, Calc (0-99) mg/dL Phenytoin 33.7 H* ug/mL Assessment and Plan Assessment: * Gait imbalance, ataxia, dizziness, likely from Dilantin toxicity. Her dose of Dilantin was recently increased about a week ago. * Abnormal brain MRI, with evidence of small vessel disease versus demyelinating disease. No evidence of acute or chronic ischemia involving the brainstem or abhijeet. * History of seizure disorder, none for last 1 year. * Patient's reported history of protein S and protein C deficiency, on antico agulation. * Tobacco user * Hyperlipidemia * Hypertension * Obesity * Obstructive sleep apnea Plan: * Check Dilantin levels daily. Once the level is less than 20, then patient c an be resumed on Dilantin 300 mg the morning and 400 mg at night. * MRI of brain showed no evidence of brainstem ischemia. Possibility of some demyelinating disease, but patient does not have any clinical features of MS at this time. * Carotid Doppler revealed no significant stenosis. * Patient started on aspirin regimen. * Echocardiogram to rule out embolic source. Patient already on anticoagula tion. INR 1.9. * Tobacco cessation
--- NOTE | 2018-11-17 17:01 | CT ---
EXAMINATION TYPE: CT chest wo con DATE OF EXAM: 11/17/2018 COMPARISON: 08/12/2017 HISTORY: Left lung mass. CT DLP: 631.3 mGycm. Automated Exposure Control for Dose Reduction was Utilized. TECHNIQUE: CT scan of the thorax is performed without IV contrast. FINDINGS: There is a 1.8 x 2.6 cm lobulated noncalcified soft tissue masslike density in the posterior segment left upper lobe adjacent to the major fissure. The other lung ogetz are clear. There is no pleural e ffusion. There is minimal linear density at the lung bases consistent with scarring or subsegmental a telectasis. Heart size is normal. There is no mediastinal adenopathy. There are no hilar masses. There is some spurring in the thoracic spine. I see no compression fracture. There is no bony destruc tive process. IMPRESSION: Spondylotic changes in the lower thoracic spine. Mass in the posterior segment left upper lobe is increased in size compared to old CT scan. Previous size is 15 x 17 mm. Tumor is suspected. Follow-up recommended.
[2018-11-17] MEDS ORDERED: WARFARIN 5 MG TAB PO SCH (18:00)
[2018-11-17] MEDS: IPRATROPIUM-ALBUTEROL 3 ML NEB INHALATION SCH (19:21)
[2018-11-17] MEDS: MONTELUKAST 10 MG TAB PO SCH (20:15)
[2018-11-17] MEDS: ATORVASTATIN 40 MG TAB PO SCH (20:15)
[2018-11-17] MEDS ORDERED: HYDROcodone/APAP 5-325MG 1 EACH TAB PO PRN (20:47)
[2018-11-18 05:35] LABS: Basophils % (A) 0 %; Eosinophils # (A) 0.2 k/uL (0-0.7); Eosinophils % (A) 3 %; HCT 38.1 % (34.0-46.0); HGB 12.1 gm/dL (11.4-16.0); Lymphocytes # (A) 1.9 k/uL (1.0-4.8); Lymphocytes % (A) 30 %; MCH 28.6 pg (25.0-35.0); MCHC 31.9 g/dL (31.0-37.0); MCV 89.8 fL (80.0-100.0); Mean Platelet Volume 7.3; Monocytes # (A) 0.5 k/uL (0-1.0); Monocytes % (A) 8 %; Neutrophils # (A) 3.7 k/uL (1.3-7.7); Neutrophils % (A) 57 %; Platelet Count 121 k/uL (150-450); RBC 4.24 m/uL (3.80-5.40); RDW 14.6 % (11.5-15.5); WBC 6.4 k/uL (3.8-10.6)
[2018-11-18 05:54] LABS: Calcium 8.5 mg/dL (8.4-10.2); Potassium 4.3 mmol/L (3.5-5.1)
[2018-11-18] MEDS: IPRATROPIUM-ALBUTEROL 3 ML NEB INHALATION SCH ×3 (07:24→20:24)
[2018-11-18] MEDS: SYMBICORT 160-4.5 MCG INHALER INHALATION SCH ×2 (07:24→20:24)
[2018-11-18 07:38] LABS: INR 2.5 (<1.2); Partial Thromboplastin Time 79.1 sec (22.0-30.0); Prothrombin Time 24.2 sec (9.0-12.0)
--- NOTE | 2018-11-18 08:03 | P.PN ---
Subjective Patient is seen in follow-up for Dilantin toxicity. Patient was taking more than the prescribed dose prior to admission. Dilantin level was down to 33.7 yesterday. Renal function is stable. No vomiting or diarrhea. Oral intake is good. No active complaints. Vital signs are stable. General: The patient appeared well nourished and normally developed. HEENT: Head exam is unremarkable. Neck is without jugular venous distension. LUNGS: Lungs are clear to auscultation and percussion. Breath sounds decreased. HEART: Rate and Rhythm are regular. First and second heart sounds normal. No murmurs, rubs or gallops. ABDOMEN: Abdominal exam reveals normal bowel sounds. Non-tender and non- distended. No evidence of peritonitis. EXTREMITITES: No clubbing, cyanosis, or edema. Objective - Vital Signs Vital signs: Vital Signs Temp 97.4 F L 11/18/18 04:00 Pulse 83 11/18/18 07:34 Resp 19 11/18/18 07:00 BP 143/78 11/18/18 07:00 Pulse Ox 95 11/18/18 07:00 Intake & Output 11/17/18 11/18/18 11/18/18 18:59 06:59 18:59 Intake Total 1125 900 75 Output Total 650 800 Balance 475 100 75 Weight 132 kg Intake: IV 875 900 75 Sodium Chloride 0.9% 1, 875 900 75 000 ml @ 75 mls/hr IV . [id number] [facility] Rx#:[id number] Oral 250 Output: Urine 650 800 Other: Voiding Method Bedside Commode Bedside Commode # Voids 1 1 # Bowel Movements 1 - Labs CBC & Chem 7: 11/18/18 04:42 11/18/18 04:42 Labs: Abnormal Lab Results - Last 24 Hours (Table) 11/16/18 11/17/18 11/17/18 Range/Units 20:47 06:52 06:52 Plt Count (150-450) k/uL PT (9.0-12.0) sec INR (<1.2) APTT (22.0-30.0) sec Chloride (98-107) mmol/L BUN (7-17) mg/dL Creatinine (0.52-1.04) mg/dL Phenytoin 33.7 H* ug/mL Free Phenytoin 4.4 H* 4.9 H* (0.8-2.0) ug/mL 11/17/18 11/17/18 11/18/18 Range/Units 06:52 06:52 04:42 Plt Count 121 L 121 L (150-450) k/uL PT (9.0-12.0) sec INR (<1.2) APTT (22.0-30.0) sec Chloride 112 H (98-107) mmol/L BUN 21 H (7-17) mg/dL Creatinine 1.05 H (0.52-1.04) mg/dL Phenytoin ug/mL Free Phenytoin (0.8-2.0) ug/mL 11/18/18 11/18/18 Range/Units 04:42 07:15 Plt Count (150-450) k/uL PT 24.2 H (9.0-12.0) sec INR 2.5 H (<1.2) APTT 79.1 H (22.0-30.0) sec Chloride 109 H (98-107) mmol/L BUN 22 H (7-17) mg/dL Creatinine 1.07 H (0.52-1.04) mg/dL Phenytoin ug/mL Free Phenytoin (0.8-2.0) ug/mL Assessment and Plan Plan: Assessment: 1. Mild Dilantin toxicity as the patient was taking more than the prescribed dose. Dilantin level was 37.8 on admission and was 33.7 as of yesterday. Marixa sue's GFR is near baseline and she has good urine output. 2. History of seizure disorder. Neurology following. 3. Mild hyperkalemia. It appears patient was taking potassium supplementation outpatient. Improved. Plan: Hep-Lock IV fluids. Hold Dilantin for now. Dose to be adjusted per neurology. No need for renal replacement therapy at this time.
[2018-11-18] MEDS: ASPIRIN 325 MG TAB PO SCH (09:30)
[2018-11-18] MEDS: PANTOPRAZOLE 40 MG/10 ML VIAL IV SCH (09:30)
[2018-11-18] MEDS: CITALOPRAM HYDROBROMIDE 20 MG TAB PO SCH (09:30)
[2018-11-18] MEDS: NICOTINE 21MG/24HR PATCH TRANSDERM SCH (09:30)
[2018-11-18] MEDS: SODIUM CHLORIDE 0.9% 1,000 ML IV SCH (09:32)
[2018-11-18] MEDS: LISINOPRIL 5 MG TAB PO SCH (12:23)
--- NOTE | 2018-11-18 12:36 | P.PN ---
Subjective Progress Note Date: 11/18/18 This is a 53-year-old female one of Dr. Urias with a previous medical history significant for seizure disorder, protein S as deficiency, history of pulmonary embolism as well as DVT, on chronic anticoagulation with Coumadin, history of CVA/TIA, history of seizure disorder was recently had her Dilantin dose adjusted to 400 mg in the morning 400 at noon and 300 mg at night she's been doing this for the past week or so has not had her Dilantin level checked, patient presented to the emergency department at [facility] today because of increased dizziness and because she has been falling around after she had felt that her legs are weak and not able to hold her body, she was seen in the ER underwent computed tomography scan of the brain that didn't show evidence of left sided brain stem infarct of indeterminate age, her INR was subtherapeutic at 1.9, she was given aspirin 325 mg daily, she was admitted to the hospital for evaluation by neurology, acute stroke evaluation including carotid ultrasound and echocardiogram along with MRI of the brain with and without Done, patient also was found to have left lung mass but she did have this biopsied about [address] Lambert and she will be seen in consultation. 11/17: Carotid ultrasound showed plaquing without significant flow limiting stenosis. Patient has been seen by Dr. Darby with recommendations for MRI of the brain, echocardiogram, tobacco cessation, aspirin. Patient has been seen by Dr. Quach for mild Dilantin toxicity and IV fluids increased to 75 mL per hour, low potassium diet and hold Dilantin. Repeat Dilantin level was 33.7 down from 37.8. INR is 2. Platelet count is 121. BUN is 21 and creatinine 1.05. Patient states that she is feeling a little bit lightheaded. We'll plan to monitor in the intensive care unit for the next 24 hours. 11/18: MRI of the brain reveals scattered white matter changes suggestive for although not diagnostic of multiple sclerosis. Other etiologies such as chronic white matter ischemic change in vasculitis should be considered. Corresponding abnormality on the CAT scan of the brain stem is not evident. No acute changes within the brainstem, no chronic changes are evident. Patient has been cleared for discharge from Dr. Quach. IV fluids have been discontinued. Repeat Dilantin level is 32.5 and INR 2.5. The patient states that she is feeling weak but she has not been up and moving. Physical therapy has evaluated and advise for home. Patient will be transferred to [facility] floor without telemetry today. We will plan to repeat Dilantin level in the morning of this is continuing to improve, probable discharge home tomorrow. Blood pressure readings have been elevated and patient will be started on lisinopril 5 mg daily. Objective - Vital Signs Vital signs: Vital Signs Temp 97.7 F 11/18/18 08:00 Pulse 85 11/18/18 08:00 Resp 22 11/18/18 08:00 BP 143/92 11/18/18 08:00 Pulse Ox 98 11/18/18 08:00 Intake & Output 11/17/18 11/18/18 11/18/18 18:59 06:59 18:59 Intake Total 1125 900 150 Output Total 650 800 Balance 475 100 150 Weight 132 kg Intake: IV 875 900 150 Sodium Chloride 0.9% 1, 875 900 150 000 ml @ 75 mls/hr IV . [id number] [facility] Rx#:[id number] Oral 250 Output: Urine 650 800 Other: Voiding Method Bedside Commode Bedside Commode # Voids 1 1 # Bowel Movements 1 - Exam Review of Systems Constitutional: Reports chronic headaches, Reports weakness, reports fatigue, Denies anorexia, Denies chronic pain, Denies lethargy Eyes: denies blurred vision, denies bulging eye, denies decreased vision Ears: deny: decreased hearing Ears, nose, mouth and throat: Denies dysphagia, Denies neck lump, Denies swelling in throat, Denies sore throat Cardiovascular: Denies chest pain, Denies decreased exercise tolerance, reports lightheadedness, Denies rapid heart beat, Denies shortness of breath, Denies syncope Respiratory: Reports sleep apnea, Reports snoring, Denies congestion, Denies cough with sputum, Denies home oxygen, Denies wheezing Gastrointestinal: Denies abdominal pain, Denies bloating, Denies BRBPR, Denies heartburn, Denies loss of appetite, Denies melena, Denies nausea, Denies vomiting Genitourinary: Denies dysuria, Denies hematuria Musculoskeletal: Reports gait dysfunction, Reports muscle weakness, Denies myalgias Musculoskeletal: absent: ankle pain, ankle stiffness, ankle swelling, elbow pain, elbow stiffness, elbow swelling, foot pain, foot stiffness, foot swelling, hand pain, hand stiffness, hand swelling, hip pain, hip stiffness, hip swelling, knee pain, knee stiffness, knee swelling, shoulder pain, shoulder stiffness, shoulder swelling, wrist pain, wrist stiffness, wrist swelling Integumentary: Denies pruritus, Denies rash Neurological: Reports balance difficulties, Reports gait dysfunction, Reports h eadaches, Reports seizures, Reports weakness, Denies visual changes Endocrine: Reports fatigue, Denies weight change Physical exam: - Constitutional General appearance: obese, patient is resting comfortably in a recliner in ICU. - EENT Eyes: anicteric sclerae, EOMI, PERRLA, no ptosis, no scleral icterus, normal appearance ENT: hearing grossly normal, NA/AT, normal oropharynx, no thrush Ears: bilateral: normal - Neck Neck: no lymphadenopathy, normal ROM, no rigidity, no stridor, no thyromegaly Carotids: bilateral: upstroke normal Thyroid: bilateral: normal size - Respiratory Respiratory: bilateral: diminished, prolonged expiration, negative: dullness, rales, rhonchi, wheezing - Cardiovascular Rhythm: regular Heart sounds: normal: S1, S2 Abnormal Heart Sounds: systolic murmur, no S3 Gallop, no S4 Gallop - Gastrointestinal General gastrointestinal: normal bowel sounds, soft, no splenomegaly, no tenderness, no umbilical hernia, no ventral hernia - Integumentary Integumentary: normal, normal turgor - Neurologic Neurologic: CNII-XII intact - Musculoskeletal Musculoskeletal: no gait normal, strength equal bilaterally - Psychiatric Psychiatric: A&O x's 3, appropriate affect, intact judgment & insight - Labs CBC & Chem 7: 11/18/18 04:42 11/18/18 04:42 Labs: Abnormal Lab Results - Last 24 Hours (Table) 11/16/18 11/17/18 11/18/18 Range/Units 20:47 06:52 04:42 Plt Count 121 L (150-450) k/uL PT (9.0-12.0) sec INR (<1.2) APTT (22.0-30.0) sec Chloride (98-107) mmol/L BUN (7-17) mg/dL Creatinine (0.52-1.04) mg/dL Free Phenytoin 4.4 H* 4.9 H* (0.8-2.0) ug/mL 11/18/18 11/18/18 Range/Units 04:42 07:15 Plt Count (150-450) k/uL PT 24.2 H (9.0-12.0) sec INR 2.5 H (<1.2) APTT 79.1 H (22.0-30.0) sec Chloride 109 H (98-107) mmol/L BUN 22 H (7-17) mg/dL Creatinine 1.07 H (0.52-1.04) mg/dL Free Phenytoin (0.8-2.0) ug/mL Assessment and Plan Plan: 1. Left-sided brainstem infarct ruled out by MRI. Continue aspirin 325 mg orally once every day, Lipitor 40 mg orally once every day, carotid ultrasound as above, echocardiogram, MRI of the brain is above, neurology consultation appreciated. 2. Dilantin toxicity with history of seizure disorder. Dilantin is currently on hold. Dr. Quach on consult. IV fluids discontinued. Repeat Dilantin level in the morning. 3. Left lung mass status post biopsy was done about 6 month [address] with [address]. Lambert. 4. Chronic tobacco use and dependence. Smoking cessation counseling an increased risk of CAD, CVA, and malignancy. 5. COPD. Continue patient on Ventolin, Symbicort, incruse and spiriva. 6. Obesity with sleep apnea. Continue current CPAP. 7. Recurrent depression. Continue Celexa 20 mg orally once every day. 8. DVT prophylaxis. Continue Coumadin and increase her dose to 5 mg at bedtime with 7.5 mg tonight. Check INR tomorrow morning 9. GI prophylaxis. Continue patient on Protonix 40 mg orally once every day. 10. History of protein S and protein C deficiency on anticoagulation. 11. Hypertension. Patient started on lisinopril 5 mg daily. Patient is full code. Discharge plan: Most likely return home on Wednesday. Impression and plan of care have been directed as dictated by the signing physician. Rukhsana Og nurse practitioner acting as scribe for signing physician.
[2018-11-18] MEDS ORDERED: HEPARIN SODIUM,PORCINE 5,000 UNIT/ML 1 ML VIAL IV PRN (17:10)
--- NOTE | 2018-11-18 17:13 | P.PN ---
Subjective Progress Note Date: 11/18/18 11/18/2017: Patient seen and examined. Patient has been transferred out of the intensive care unit. She is sitting up in the chair on 2 L nasal cannula. She states she is feeling better overall. The patient's CT results are discussed. She is agreeable to undergo bronchoscopy with biopsy. Objective - Vital Signs Vital signs: Vital Signs Temp 97.7 F 11/18/18 14:53 Pulse 77 11/18/18 14:53 Resp 16 11/18/18 14:53 BP 138/86 11/18/18 14:53 Pulse Ox 98 11/18/18 14:53 Intake & Output 11/17/18 11/18/18 11/18/18 18:59 06:59 18:59 Intake Total 1125 900 350 Output Total 650 800 0 Balance 475 100 350 Weight 132 kg Intake: IV 875 900 150 Sodium Chloride 0.9% 1, 875 900 150 000 ml @ 75 mls/hr IV . [id number] [facility] Rx#:[id number] Oral 250 200 Output: Urine 650 800 0 Other: Voiding Method Bedside Commode Bedside Commode Bedside Commode # Voids 1 1 1 # Bowel Movements 1 - Exam Gen.: Patient is alert and oriented 3, no acute distress, obese Cardiovascular: Regular rate and rhythm, S1/S2 Lungs: Diminished breath sounds bilaterally with scattered expiratory wheezing Abdomen: Soft nontender nondistended positive bowel sounds Extremities: No edema - Labs CBC & Chem 7: 11/18/18 04:42 11/18/18 04:42 Labs: Abnormal Lab Results - Last 24 Hours (Table) 11/16/18 11/17/18 11/18/18 Range/Units 20:47 06:52 04:42 Plt Count 121 L (150-450) k/uL PT (9.0-12.0) sec INR (<1.2) APTT (22.0-30.0) sec Chloride (98-107) mmol/L BUN (7-17) mg/dL Creatinine (0.52-1.04) mg/dL Phenytoin ug/mL Free Phenytoin 4.4 H* 4.9 H* (0.8-2.0) ug/mL 11/18/18 11/18/18 11/18/18 Range/Units 04:42 04:42 07:15 Plt Count (150-450) k/uL PT 24.2 H (9.0-12.0) sec INR 2.5 H (<1.2) APTT 79.1 H (22.0-30.0) sec Chloride 109 H (98-107) mmol/L BUN 22 H (7-17) mg/dL Creatinine 1.07 H (0.52-1.04) mg/dL Phenytoin 32.5 H* ug/mL Free Phenytoin (0.8-2.0) ug/mL Assessment and Plan Assessment: Generalized weakness, Dilantin toxicity Left hilar lung mass COPD Obstructive sleep apnea, compliant with CPAP Weight matter changes on MRI possible MS Active tobacco abuse Obesity Depression History of DVT and PE History of seizure disorder Protein C and S deficiency Dyslipidemia Hypertension Coumadin coagulopathy, subtherapeutic O2 to maintain saturation greater than or equal to 90% Symbicort Duo nebs Singulair CT of the chest reviewed with the patient Smoking cessation is hightly recommended Incentive spirometry and pulmonary hygiene Outpatient pulmonary function test Sputum culture Neurology and nephrology recommendations GI and DVT prophylaxis Plan for bronchoscopy next week if cleared by neurology and cardiology Hold Coumadin, heparin drip which can be held 4 hours prior to procedure
[2018-11-18] MEDS ORDERED: HEPARIN SOD,PORK IN 0.45% NACL 25,000 UNIT in 0.45% NACL 1 250ML.BAG IV SCH (17:15)
[2018-11-18 17:56] LABS: INR 2.3 (<1.2); Partial Thromboplastin Time 79.6 sec (22.0-30.0); Prothrombin Time 22.3 sec (9.0-12.0)
[2018-11-18 18:02] LABS: Basophils % (A) 1 %; Eosinophils # (A) 0.1 k/uL (0-0.7); Eosinophils % (A) 3 %; HCT 37.6 % (34.0-46.0); HGB 12.1 gm/dL (11.4-16.0); Lymphocytes # (A) 1.4 k/uL (1.0-4.8); Lymphocytes % (A) 26 %; MCH 29.7 pg (25.0-35.0); MCHC 32.3 g/dL (31.0-37.0); MCV 91.9 fL (80.0-100.0); Mean Platelet Volume 7.3; Monocytes # (A) 0.5 k/uL (0-1.0); Monocytes % (A) 9 %; Neutrophils # (A) 3.3 k/uL (1.3-7.7); Neutrophils % (A) 61 %; Platelet Count 106 k/uL (150-450); RBC 4.09 m/uL (3.80-5.40); RDW 14.5 % (11.5-15.5); WBC 5.4 k/uL (3.8-10.6)
[2018-11-18] MEDS: MONTELUKAST 10 MG TAB PO SCH (21:14)
[2018-11-18] MEDS: ATORVASTATIN 40 MG TAB PO SCH (21:14)
[2018-11-19] MEDS ORDERED: PANTOPRAZOLE 40 MG TABLET PO SCH (07:30)
[2018-11-19] MEDS: ASPIRIN 325 MG TAB PO SCH (08:12)
[2018-11-19] MEDS: CITALOPRAM HYDROBROMIDE 20 MG TAB PO SCH (08:12)
[2018-11-19] MEDS: NICOTINE 21MG/24HR PATCH TRANSDERM SCH (08:12)
[2018-11-19] MEDS: LISINOPRIL 5 MG TAB PO SCH (08:12)
[2018-11-19 08:16] LABS: INR 1.9 (<1.2); Partial Thromboplastin Time 93.2 sec (22.0-30.0); Prothrombin Time 18.6 sec (9.0-12.0)
[2018-11-19 08:49] LABS: Basophils % (A) 0 %; Eosinophils # (A) 0.1 k/uL (0-0.7); Eosinophils % (A) 2 %; HGB 11.2 gm/dL (11.4-16.0); Lymphocytes # (A) 1.4 k/uL (1.0-4.8); Lymphocytes % (A) 29 %; MCH 29.4 pg (25.0-35.0); MCHC 32.1 g/dL (31.0-37.0); MCV 91.5 fL (80.0-100.0); Mean Platelet Volume 7.4; Monocytes # (A) 0.5 k/uL (0-1.0); Monocytes % (A) 10 %; Neutrophils # (A) 2.6 k/uL (1.3-7.7); Neutrophils % (A) 57 %; RBC 3.83 m/uL (3.80-5.40); RDW 13.9 % (11.5-15.5); WBC 4.7 k/uL (3.8-10.6)
[2018-11-19] MEDS: SYMBICORT 160-4.5 MCG INHALER INHALATION SCH (09:32)
[2018-11-19] MEDS: IPRATROPIUM-ALBUTEROL 3 ML NEB INHALATION SCH ×2 (09:32→14:01)
[2018-11-19 09:33] VITALS: BP 145/43; RESP 16; TEMP 98.1
[2018-11-19 10:20] VITALS: PULSE 69
[2018-11-19 11:25] LABS: Platelet Count 92 k/uL (150-450)
--- NOTE | 2018-11-19 13:28 | PN ---
PROGRESS NOTE Patient is seen for followup for Dilantin toxicity. Her renal function has been stable. Serum creatinine staying at 1.0 mg/dL. Dilantin level is down to 25 from 32 on initial admission. Currently patient feels well and wants to go home. PHYSICAL EXAMINATION: On examination, blood pressure was 145/43, heart rate 69 per minute. She is afebrile. Examination of the heart S1, S2. Examination of the lungs, bilateral breath sounds are heard. Abdomen is soft, nontender. Examination lower extremities shows trace edema bilaterally. TELEPHONE LINES REPAIRER exam is grossly intact. LABS: Hemoglobin 11.2, serum creatinine 1.07 yesterday. Dilantin level 25.2. ASSESSMENT: 1. Dilantin toxicity, currently improved. 2. History of seizure disorder. 3. Mild hyperkalemia, currently improved, off of potassium supplementation. PLAN: The patient is stable for discharge from Nephrology standpoint. MMODL / IJN: [id number] /
--- NOTE | 2018-11-19 14:21 | P.PN ---
Subjective Progress Note Date: 11/19/18 Principal diagnosis: Left hilar lung mass, severe COPD, obstructive sleep apnea, history of DVT PE in the past, protein VEGETABLE CANNER deficiency, dyslipidemia, hypertension hypertensive cardi ovascular disease, 11/19/2018, patient seen eval reexamined during the patient has been ambulating doing well slight dizziness is present denies any cough or sputum production CTI scan finding reviewed, patient has been cleared for primary service and the cardiology for discharge from pulmonary standpoint feels that can go home recommended to follow with Dr. Gonzalez next week to schedule the bronchoscopy and biopsy Objective - Vital Signs Vital signs: Vital Signs Temp 98.1 F 11/19/18 07:30 Pulse 76 11/19/18 09:42 Resp 16 11/19/18 08:00 BP 145/43 11/19/18 07:30 Pulse Ox 99 11/19/18 07:30 Intake & Output 11/18/18 11/19/18 11/19/18 18:59 06:59 18:59 Intake Total 350 49.995 49.896 Output Total 0 Balance 350 49.995 49.896 Weight 134.5 kg Intake: IV 150 Sodium Chloride 0.9% 1, 150 000 ml @ 75 mls/hr IV . [id number] [facility] Rx#:[id number] Intake, IV Titration 49.995 49.896 Amount Heparin Sod,Pork in 0.45% 49.995 49.896 NaCl 25,000 unit In 0.45 % NaCl 1 250ml.bag @ 7.5 UNITS/KG/HR 9.9 mls/hr IV .Q24H [facility] Rx#:[id number] Oral 200 Output: Urine 0 Other: Voiding Method Toilet Toilet # Voids 1 1 - Exam General appearance: obese, patient is resting comfortably in a recliner in ICU. - EENT Eyes: anicteric sclerae, EOMI, PERRLA, no ptosis, no scleral icterus, normal appearance ENT: hearing grossly normal, NA/AT, normal oropharynx, no thrush Ears: bilateral: normal - Neck Neck: no lymphadenopathy, normal ROM, no rigidity, no stridor, no thyromegaly Carotids: bilateral: upstroke normal Thyroid: bilateral: normal size - Respiratory Respiratory: bilateral: diminished, prolonged expiration, negative: dullness, rales, rhonchi, wheezing - Cardiovascular Rhythm: regular Heart sounds: normal: S1, S2 Abnormal Heart Sounds: systolic murmur, no S3 Gallop, no S4 Gallop - Gastrointestinal General gastrointestinal: normal bowel sounds, soft, no splenomegaly, no tenderness, no umbilical hernia, no ventral hernia - Integumentary Integumentary: normal, normal turgor - Neurologic Neurologic: CNII-XII intact - Musculoskeletal Musculoskeletal: no gait normal, strength equal bilaterally - Psychiatric Psychiatric: A&O x's 3, appropriate affect, intact judgment & insight - Labs CBC & Chem 7: 11/19/18 07:05 11/18/18 04:42 Labs: Abnormal Lab Results - Last 24 Hours (Table) 11/18/18 11/18/18 11/18/18 Range/Units 04:42 17:35 17:35 Hgb (11.4-16.0) gm/dL Plt Count 106 L (150-450) k/uL PT 22.3 H (9.0-12.0) sec INR 2.3 H (<1.2) APTT 79.6 H (22.0-30.0) sec Free Phenytoin 3.4 H* (0.8-2.0) ug/mL 11/18/18 11/19/18 11/19/18 Range/Units 23:07 07:05 07:05 Hgb 11.2 L (11.4-16.0) gm/dL Plt Count 92 L (150-450) k/uL PT 18.6 H (9.0-12.0) sec INR 1.9 H (<1.2) APTT >200.0 H* 93.2 H (22.0-30.0) sec Free Phenytoin (0.8-2.0) ug/mL Assessment and Plan Assessment: Dilantin toxicity with generalized weakness related to that Left hilar mass Severe COPD Obstructive sleep apnea History of DVT PE Protein VEGETABLE CANNER deficiency Dyslipidemia Hypertension hypertensive cardiovascular disease Plan: Patient has been recommended by discharge by neurology and cardiology okay from pulmonary standpoint for discharge to follow with primary environmental marketing representative on outpatient next week so she can be scheduled for the procedure Time with Patient: Greater than 30
--- NOTE | 2018-11-19 15:02 | P.DS ---
Providers Date of admission: 11/16/18 17:10 Expected date of discharge: 11/19/18 Attending physician: Kanu Lao Consults: 11/16/18 17:11 Consult Physician Urgent Consulting Provider: Bharath Darby Consult Reason/Comments: Evaluate for brainstem stroke Do you want consulting provider notified?: Yes Consult Physician Urgent Consulting Provider: Ping Lambert Consult Reason/Comments: Lung mass/ICU management Do you want consulting provider notified?: Yes 11/17/18 06:42 Consult Physician Routine Consulting Provider: Meek Quach Consult Reason/Comments: Dilantin toxicity Do you want consulting provider notified?: Yes, Notify in am Primary care physician: Lise Urias [facility] Course: This is a 53-year-old female one of Dr. Urias with a previous medical history significant for seizure disorder, protein S as deficiency, history of pulmonary embolism as well as DVT, on chronic anticoagulation with Coumadin, history of CVA/TIA, history of seizure disorder was recently had her Dilantin dose adjusted to 400 mg in the morning 400 at noon and 300 mg at night she's been doing this for the past week or so has not had her Dilantin level checked, patient presented to the emergency department at [facility] today because of increased dizziness and because she has been falling around after she had felt that her legs are weak and not able to hold her body, she was seen in the ER underwent computed tomography scan of the brain that didn't show evidence of left sided brain stem infarct of indeterminate age, her INR was subtherapeutic at 1.9, she was given aspirin 325 mg daily, she was admitted to the hospital for evaluation by neurology, acute stroke evaluation including carotid ultrasound and echocardiogram along with MRI of the brain with and without Done, patient also was found to have left lung mass but she did have this biopsied about [address] Lambert and she will be seen in consultation. 11/17: Carotid ultrasound showed plaquing without significant flow limiting stenosis. Patient has been seen by Dr. Darby with recommendations for MRI of the brain, echocardiogram, tobacco cessation, aspirin. Patient has been seen by Dr. Quach for mild Dilantin toxicity and IV fluids increased to 75 mL per hour, low potassium diet and hold Dilantin. Repeat Dilantin level was 33.7 down from 37.8. INR is 2. Platelet count is 121. BUN is 21 and creatinine 1.05. Patient states that she is feeling a little bit lightheaded. We'll plan to monitor in the intensive care unit for the next 24 hours. 11/18: MRI of the brain reveals scattered white matter changes suggestive for although not diagnostic of multiple sclerosis. Other etiologies such as chronic white matter ischemic change in vasculitis should be considered. Corresponding abnormality on the CAT scan of the brain stem is not evident. No acute changes within the brainstem, no chronic changes are evident. Patient has been cleared for discharge from Dr. Quach. IV fluids have been discontinued. Repeat Dilantin level is 32.5 and INR 2.5. The patient states that she is feeling weak but she has not been up and moving. Physical therapy has evaluated and advise for home. Patient will be transferred to [facility] without telemetry today. We will plan to repeat Dilantin level in the morning of this is continuing to improve, probable discharge home tomorrow. Blood pressure readings have been elevated and patient will be started on lisinopril 5 mg daily. 11/19: Repeat Dilantin level is 25.2. Dr. Darby has recommended resuming Dilantin when her level is less than 20 at Dilantin 300 mg in the morning and 400 mg at night. Patient has been provided a prescription for Dilantin levels to be drawn daily starting on Wednesday and this can be done by [facility] with results going to Dr. Urias/Dr. Lao. Dr. Lambert is planning on outpatient bronchoscopy and biopsy next week. Coumadin will remain on hold until this is completed. Patient will be discharged home today in stable condition. Discharge diagnoses: 1. Left-sided brainstem infarct ruled out by MRI. 2. Dilantin toxicity with history of seizure disorder. 3. Left lung mass status post biopsy was done about 6 month ago. 4. Chronic tobacco use and dependence. 5. COPD. 6. Obesity with sleep apnea. 7. Recurrent depression. 8. History of protein S and protein C deficiency on anticoagulation. 9. Hypertension. Discharge plan: home Impression and plan of care have been directed as dictated by the signing physician. Rukhsana Og nurse practitioner acting as scribe for signing physician. Patient Condition at Discharge: Good Plan - Discharge Summary Discharge Rx Participant: No New Discharge Prescriptions: New Aspirin 325 mg PO DAILY tab Nicotine 21Mg/24Hr Patch [Habitrol] 1 patch TRANSDERM DAILY #30 patch Atorvastatin [Lipitor] 40 mg PO HS #30 tab Montelukast [Singulair] 10 mg PO HS #30 tab Lisinopril [Zestril] 5 mg PO DAILY #30 tab Continue Meclizine [Antivert] 25 mg PO TID HYDROcodone/APAP 10-325MG [[place] 10-325] 1 tab PO DAILY PRN PRN Reason: Pain Citalopram Hydrobromide [CeleXA] 20 mg PO DAILY Potassium Chloride ER [K-Dur 10] 20 meq PO Q72H PRN PRN Reason: Edema Pantoprazole Sodium 20 mg PO DAILY Furosemide [Lasix] 40 mg PO Q72H PRN PRN Reason: Edema Umeclidinium [place] [Incruse Ellipta] 1 puff INHALATION RT-DAILY@1500 Tiotropium 18 Mcg/Puff [Spiriva] 1 puff INHALATION DAILY@1200 Albuterol Nebulized [Ventolin Nebulized] 2.5 mg INHALATION RT-Q4H PRN PRN Reason: Shortness Of Breath Albuterol Inhaler [Ventolin Hfa Inhaler] 1 - 2 puff INHALATION RT-Q6H PRN PRN Reason: Shortness Of Breath Budesonide/Formoterol Fumarate [Symbicort 160-4.5 Mcg Inhaler] 2 puff INHALATION RT-BID Discontinued Warfarin [Coumadin] 5 mg PO W/SUPPER Phenytoin Sodium Extended [Dilantin] 400 mg PO BID@0800,1200 Phenytoin Sodium Extended [Dilantin] 300 mg PO HS Discharge Medication List Albuterol Inhaler [Ventolin Hfa Inhaler] 1 - 2 puff INHALATION RT-Q6H PRN 11/16/18 [History] Albuterol Nebulized [Ventolin Nebulized] 2.5 mg INHALATION RT-Q4H PRN 11/16/18 [History] Budesonide/Formoterol Fumarate [Symbicort 160-4.5 Mcg Inhaler] 2 puff INHALATION RT-BID 11/16/18 [History] Citalopram Hydrobromide [CeleXA] 20 mg PO DAILY 11/16/18 [History] Furosemide [Lasix] 40 mg PO Q72H PRN 11/16/18 [History] HYDROcodone/APAP 10-325MG [[place] 10-325] 1 tab PO DAILY PRN 11/16/18 [History] Meclizine [Antivert] 25 mg PO TID 11/16/18 [History] Pantoprazole Sodium 20 mg PO DAILY 11/16/18 [History] Potassium Chloride ER [K-Dur 10] 20 meq PO Q72H PRN 11/16/18 [History] Tiotropium 18 Mcg/Puff [Spiriva] 1 puff INHALATION DAILY@1200 11/16/18 [History] Umeclidinium [place] [Incruse Ellipta] 1 puff INHALATION RT-DAILY@1500 11/16/18 [History] Aspirin 325 mg PO DAILY tab 11/19/18 [Rx] Atorvastatin [Lipitor] 40 mg PO HS #30 tab 11/19/18 [Rx] Lisinopril [Zestril] 5 mg PO DAILY #30 tab 11/19/18 [Rx] Montelukast [Singulair] 10 mg PO HS #30 tab 11/19/18 [Rx] Nicotine 21Mg/24Hr Patch [Habitrol] 1 patch TRANSDERM DAILY #30 patch 11/19/18 [Rx] Follow up Appointment(s)/Referral(s): Lise Urias MD [Primary Care Provider] - 1 Week Ping Lambert DO [Doctor of Osteopathic Medicine] - 1 Week (Please call Wednesday to make appointment ) Bill Orta DO [STAFF PHYSICIAN] - 1 Week [facility] Visiting Nurse, [NON-STAFF] - 1 Week Ambulatory/Diagnostic Orders: Miscellaneous Lab Order [LAB.AMB] Location: None Selected Discharge Disposition: HOME WITH HOME HEALTH SERVICES
== END 2018-11-19 14:42 | disposition home health service (06) | DRG 918 ==
LOC: EC 12:21 → 3SCARD 17:10 → 2SICU 11-17 06:19 → 4SSUR 11-18 12:55
PROVIDERS: ADMIT Internal Medicine; ATTEND Internal Medicine
DX: T42.0X1A Poisoning by hydantoin derivatives, accidental (unintentional), initial encounter (principal); D68.59 Other primary thrombophilia; F33.9 Major depressive disorder, recurrent, unspecified; Z68.43 Body mass index [BMI] 50.0-59.9, adult; E87.5 Hyperkalemia; I11.9 Hypertensive heart disease without heart failure; R26.0 Ataxic gait; R42 Dizziness and giddiness; E66.9 Obesity, unspecified; E78.5 Hyperlipidemia, unspecified; F17.210 Nicotine dependence, cigarettes, uncomplicated; G40.909 Epilepsy, unspecified, not intractable, without status epilepticus; G47.33 Obstructive sleep apnea (adult) (pediatric); H55.00 Unspecified nystagmus; J44.9 Chronic obstructive pulmonary disease, unspecified; K21.9 Gastro-esophageal reflux disease without esophagitis; R91.8 Other nonspecific abnormal finding of lung field; Z79.01 Long term (current) use of anticoagulants; Z79.51 Long term (current) use of inhaled steroids; Z79.899 Other long term (current) drug therapy; Z88.0 Allergy status to penicillin; Z88.2 Allergy status to sulfonamides; Z87.442 Personal history of urinary calculi; Z86.73 Personal history of transient ischemic attack (TIA), and cerebral infarction without residual deficits; Z86.718 Personal history of other venous thrombosis and embolism; Z86.711 Personal history of pulmonary embolism; Z98.51 Tubal ligation status; Z71.6 Tobacco abuse counseling; Z80.9 Family history of malignant neoplasm, unspecified; Z82.3 Family history of stroke; Z82.49 Family history of ischemic heart disease and other diseases of the circulatory system; Z83.3 Family history of diabetes mellitus; Y92.009 Unspecified place in unspecified non-institutional (private) residence as the place of occurrence of the external cause
CPT/HCPCS: 36415; 70450; 70551; 71046; 71250; 80048; 80053; 80061; 80185; 80186; 81003; 83605; 84484; 85025; 85610; 85730; 93005; 93306; 93880; 94640; 94760; 96361; 96374; 99285

== ENCOUNTER 2018-11-23 09:48 | Day surgery (SDC) | payer MEDICARE, OTHER ==
[2018-11-22 11:51] VITALS: BMI 53.0
[~2018-11-23 09:48] MED LIST: LACTATED RINGERS 1,000 ML IV SCH
[2018-11-23] MEDS ORDERED: LACTATED RINGERS 1,000 ML IV ONE ×2 (10:30→13:33)
[2018-11-23] MEDS ORDERED: LIDOCAINE 1% 20 ML VIAL (10MG/ML) FOR IV START INTRADERMA ONE (10:31)
[2018-11-23] MEDS ORDERED: ONDANSETRON 4 MG/2 ML VIAL IVP ONE (10:31)
[2018-11-23 10:46] LABS: INR 1.3 (<1.2); Prothrombin Time 13.7 sec (9.0-12.0)
--- NOTE | 2018-11-23 11:34 | CT ---
EXAMINATION TYPE: CT Chest noy Sanchez Protocol DATE OF EXAM: 11/23/2018 COMPARISON: CT chest November 17, 2018. HISTORY: Pre OP scan, recent abnormal CT CT DLP: 883 mGycm Automated exposure control for dose reduction was used. FINDINGS: Exam is for surgical planning and not for diagnostic purposes. There is redemonstration of oval 2.6 c m lobulated nodule posterior inferior left upper lobe. Spleen is redemonstrated enlarged or prominent . IMPRESSION: ABOVE.
[2018-11-23] MEDS ORDERED: NEOSTIGMINE 1 MG/ML 10 ML VIAL ONE (12:22)
[2018-11-23] MEDS ORDERED: MIDAZOLAM 2 MG/2 ML VIAL ONE (12:22)
[2018-11-23] MEDS ORDERED: SUCCINYLCHOLINE CHLORIDE VIAL 200 MG/10 ML VIAL IV ONE (12:22)
[2018-11-23] MEDS ORDERED: PROPOFOL 10 MG/ML 20 ML VIAL IV ONE (12:22)
[2018-11-23] MEDS ORDERED: fentaNYL (PF) 50 MCG/ML 2 ML AMP ONE (12:22)
[2018-11-23] MEDS ORDERED: GLYCOPYRROLATE 0.2 MG/ML 2 ML VIAL ONE (12:22)
[2018-11-23] MEDS ORDERED: ROCURONIUM BROMIDE 10 MG/ML 10 ML VIAL IV ONE (12:22)
[2018-11-23] MEDS ORDERED: LIDOCAINE 1% INJ 10MG/ML (20 ML MDV) ONE (12:22)
[2018-11-23] MEDS ORDERED: EPINEPHrine 1 MG/ML 1 ML AMP IRRIGATION ONE (13:00)
[2018-11-23 14:02] VITALS: TEMP 97
--- NOTE | 2018-11-23 14:11 | XR ---
EXAMINATION TYPE: XR chest 1V DATE OF EXAM: 11/23/2018 COMPARISON: CXR from 11/16/2018. CT earlier today. HISTORY: Bronchoscopy for sampling. Left lung mass. TECHNIQUE: Single AP portable frontal upright view of the chest is obtained. FINDINGS: There is no evidence of pneumothorax after bronchoscopy. Overlying EKG leads and planning wires are noted. Background chronic emphysematous change with left midlung mass redemonstrated. The cardiac silhouette size is within normal limits. The osseous structures are intact. IMPRESSION: No evidence of pneumothorax after bronchoscopy.
--- NOTE | 2018-11-23 14:16 | P.PCN ---
Date of Procedure: 11/23/18 Preoperative Diagnosis: Perihilar left lung mass Postoperative Diagnosis: Same Procedure(s) Performed: Navigational bronchoscopy Surgeon: Ping Lambert Estimated Blood Loss (ml): 50 Disposition: PACU Indications for Procedure: Diagnosis of lung mass Description of Procedure: A time out was performed to ensure the correct patient and intended procedure. OR: The patient was admitted to the pre-op unit and seen by the anesthesiologist and director of safety. The patient was then transported to the operating room and anesthesia was induced. The fiberoptic bronchoscope was passed through the patient's artificial airway to the level of the alfred. The alfred appeared sharp. Bilateral bronchial trees were thoroughly inspected to the sub segmental level and no endobronchial lesions were seen. The scope was then directed to the area of interest in the left lower lobe/perihilar region. BAL was performed at the left lower lobe uti lizing 60 ml of normal saline with return of bloody aspirate. Aguero needle biopsies, forceps biopsies, and cytology brushings were obtained from the left lower lobe. The patient did have some bleeding from the site of the biopsies. Epinephrine was applied. Saline was instilled and suctioned until clear. By the end of the procedure hemostasis had been achieved with 2 mL of epinephrine. Electromagnetic navigation was used to navigate. The patient tolerated the procedure well. Post-procedure CXR will be obtained. Patient should follow up in the pulmonary office in 1 week. Patient can be discharged to home in stable condition.
[2018-11-23 14:31] VITALS: RESP 16
[2018-11-23 15:42] VITALS: BP 108/67; PULSE 77
== END 2018-11-23 15:56 | disposition home or self-care (01) ==
LOC: ORWHC2ENDO 09:48
PROVIDERS: ATTEND Internal Medicine
DX: R91.8 Other nonspecific abnormal finding of lung field (principal); J44.9 Chronic obstructive pulmonary disease, unspecified; T58.91XA Toxic effect of carbon monoxide from unspecified source, accidental (unintentional), initial encounter; F17.210 Nicotine dependence, cigarettes, uncomplicated; G47.33 Obstructive sleep apnea (adult) (pediatric); Z99.89 Dependence on other enabling machines and devices; D68.59 Other primary thrombophilia; Z86.73 Personal history of transient ischemic attack (TIA), and cerebral infarction without residual deficits; Z86.711 Personal history of pulmonary embolism; Z86.718 Personal history of other venous thrombosis and embolism; E66.01 Morbid (severe) obesity due to excess calories; Z68.43 Body mass index [BMI] 50.0-59.9, adult; F41.9 Anxiety disorder, unspecified; Z79.01 Long term (current) use of anticoagulants; Z79.899 Other long term (current) drug therapy; Z79.891 Long term (current) use of opiate analgesic; Z88.0 Allergy status to penicillin; Z88.2 Allergy status to sulfonamides
CPT/HCPCS: 88104; 88108; 88305; 88173; 80185; 85610; 88342; 88341; 71045; 71250; 31628; 31623; 31624; 31627; J2250; J0171; J0330; J2710; J2405; J2001; J3010; J2704; 31625; 31629

== ENCOUNTER → 2018-12-10 | Outpatient (CLI) | payer MEDICARE, OTHER ==
--- NOTE | 2018-12-12 12:36 | PE ---
Nuclear medicine PET/CT HISTORY: Lung carcinoma, initial Patient received 11.9 mCi F-18 FDG intravenously in delayed scanning was performed from the skull bas e to the mid thighs. Localization and attenuation correction CT scan was performed. Correlation to prior chest CT 11/17/2018, prior nuclear medicine PET/CT 08/21/2017 Neck and chest: There is no evident cervical adenopathy, no supraclavicular adenopathy. There is no m ediastinal, axillary, or hilar uptake. There is a left upper lobe lung mass measuring approximately 2 .9 cm in greatest dimension, SUV is calculated at 3.6, mild hypermetabolic uptake, patient body habit us may reflect SUV value. No pleural or pericardial effusion. ABDOMEN: There is no evident liver mass, gallbladder is unremarkable. Spleen is enlarged. There is no adrenal mass or retroperitoneal adenopathy. Kidneys are unremarkable. Aorta is not aneurysmal. Pancr eas is normal. No suspicious hypermetabolic uptake. Osseous structures: Degenerative disc changes are present in the lower lumbar spine. No suspicious hy permetabolic uptake. Bilateral spondylolysis is suspected at L5. IMPRESSION: The patient's lung nodule has increased in size as described.
== END | disposition home or self-care (01) ==
LOC: RADPETMAIN 12:15
PROVIDERS: ATTEND Internal Medicine
DX: R91.1 Solitary pulmonary nodule (principal)
CPT/HCPCS: 78815; A9552

== ENCOUNTER 2019-01-15 16:12 | Emergency (ER) | payer MEDICARE, OTHER ==
[2019-01-15 16:25] VITALS: BP 112/71; PULSE 95; RESP 18; TEMP 98.3
--- NOTE | 2019-01-15 17:47 | XR ---
Left ankle and left foot HISTORY: Trauma and pain 3 views of the left foot and 3 views of the left ankle submitted. Soft tissue swelling is noted at the ankle. There is a crescentic focus of bone density distal to the fibula likely representing a chip fracture or avulsion injury. Alignment and bone mineralization are maintained. There is a plantar calcaneal spur. Joint spaces are maintained. IMPRESSION: Avulsion fracture suspected distal fibula.
--- NOTE | 2019-01-15 18:30 | ED ---
General Adult HPI - General Chief complaint: Extremity Injury, Lower Stated complaint: L ankle pain Time Seen by Provider: 01/15/19 16:52 Source: patient Mode of arrival: wheelchair Limitations: no limitations - History of Present Illness Initial comments: Patient is a 53-year-old female presenting to emergency department with left ankle pain. Patient reports stepping out of the porch when she rolled her ankle and fell forward. Patient denies any head trauma or any pain to the neck. Patient reports tenderness along the lateral malleoli. Patient reports the pain is exacerbated with inversion and alleviated at rest. Patient reports the incident occurred yesterday. Patient reports taking [id number] analgesics with minimal improvement. Patient denies any numbness or tingling. Patient reports mild edema but no erythema at the site of injury. - Related Data Home Medications Medication Instructions Recorded Confirmed Albuterol Inhaler [Ventolin Hfa 1 - 2 puff INHALATION Q6HR PRN 11/16/18 11/22/18 Inhaler] Albuterol Nebulized [Ventolin 2.5 mg INHALATION QID PRN 11/16/18 11/22/18 Nebulized] Citalopram Hydrobromide [CeleXA] 20 mg PO DAILY 11/16/18 11/22/18 Furosemide [Lasix] 40 mg PO Q72H PRN 11/16/18 11/22/18 HYDROcodone/APAP 10-325MG [[employer] 1 tab PO DAILY PRN 11/16/18 11/22/18 10-325] Pantoprazole Sodium 20 mg PO DAILY 11/16/18 11/22/18 Potassium Chloride ER [K-Dur 10] 20 meq PO Q72H PRN 11/16/18 11/22/18 Tiotropium 18 Mcg/Puff [Spiriva] 1 puff INHALATION 1200 11/16/18 11/22/18 Phenytoin Sodium Extended 400 mg PO BID 11/22/18 11/22/18 [Dilantin] Warfarin [Coumadin] 5 mg PO DAILY 11/22/18 11/22/18 Previous Rx's Medication Instructions Recorded Aspirin 325 mg PO DAILY tab 11/19/18 Atorvastatin [Lipitor] 40 mg PO HS #30 tab 11/19/18 Lisinopril [Zestril] 5 mg PO DAILY #30 tab 11/19/18 Montelukast [Singulair] 10 mg PO HS #30 tab 11/19/18 Nicotine 21Mg/24Hr Patch [Habitrol] 1 patch TRANSDERM DAILY #30 patch 11/19/18 Allergies Allergy/AdvReac Type Severity Reaction Status Date / Time Penicillins Allergy Rash/Hives Verified 01/15/19 16:25 Sulfa (Sulfonamide Allergy Rash/Hives Verified 01/15/19 16:25 Antibiotics) wool Allergy Rash/Hives Verified 01/15/19 16:25 ivory soap Allergy Rash/Hives Uncoded 01/15/19 16:25 Review of Systems ROS Statement: Those systems with pertinent positive or pertinent negative responses have been documented in the HPI. ROS Other: All systems not noted in ROS Statement are negative. Past Medical History Past Medical History: Blood Disorder, COPD, CVA/TIA, Deep Vein Thrombosis (DVT), GERD/Reflux, Hyperlipidemia, Pneumonia, Pulmonary Embolus (PE), Seizure Disorder, Sleep Apnea/CPAP/BIPAP Additional Past Medical History / Comment(s): TIA-no residual effects, blood clot left leg and PE left lung, last seizure 2-3 years ago, bronchitis, kidney stones, protein S deficiency, occasional bilateral ankle edema, past hx falls, weakness in candida legs, dizzy, "black spot on lung" History of Any Multi-Drug Resistant Organisms: None Reported Past Surgical History: Tubal Ligation, Uterine Ablation Additional Past Surgical History / Comment(s): D&C, bronchoscopy with L lung biopsy Past Anesthesia/Blood Transfusion Reactions: No Reported Reaction Past Psychological History: Depression Smoking Status: Current every day smoker Past Alcohol Use History: None Reported Past Drug Use History: None Reported - Past Family History Father Additional Family Medical History / Comment(s): Mother Family Medical History: No Reported History Additional Family Medical History / Comment(s): Mother of a CVA at the age of 71 yrs. Brother(s) Family Medical History: No Reported History Additional Family Medical History / Comment(s): Patient has no children. General Exam - General Exam Comments Initial Comments: General: Well-developed well-nourished distress HEENT: Normocephalic/atraumatic, PERLL, pharynx erythema, swallowing well, EAC no erythema, no exudates, TM clear, no cervical lymph nodes Neck: Supple, nontender, trachea midline Chest/Lungs: Normal respirations, no signs of respiratory distress clear to auscultation bilaterally no wheezes, rales, rhonchi Cardiac: Regular rate and rhythm, normal S1-S2, no murmurs rubs or gallops Abdomen/GI: Soft nontender, bowel sounds equal or quadrant x4, no guarding, no rebound no CVA tenderness Musculoskeletal: Tenderness along the left lateral malleoli, mild ecchymosis and edema at the same region, +2 dorsalis pedis and posterior tibialis bilaterally, limited range of motion due to pain, Skin: Warmth, no rashes or lesions, no cyanosis or diaphoresis Neurologic: AAO x 3, CN 2-12 intact, Psychiatric: Mood and affect normal, judgment normal Limitations: no limitations Course Vital Signs 01/15/19 16:22 Temperature 98.3 F Pulse Rate 95 Respiratory 18 Rate Blood Pressure 112/71 O2 Sat by Pulse 97 Oximetry Procedures - Orthopedic Splinting/Casting Injury #1 Side: left Lower Extremity Injury Location: ankle Lower Extremity Immobilizer: stirrup splint, Gustavo wrap Other Orthopedic Equipment: crutches Medical Decision Making - Medical Decision Making Patient is a 53-year-old female presenting to emergency Department with left ankle pain. Ankle stirrup was placed on patient. Patient advised to follow-up with orthopedics. Patient advised to alternate between Tylenol and ibuprofen for pain control. Patient advised to apply cold compress to minimize symptoms. Strict return parameters were thoroughly discussed with patient was understanding and agreeable. Case discussed with physician. Disposition Clinical Impression: Closed avulsion fracture of distal end of fibula Disposition: HOME SELF-CARE Condition: Stable Instructions (If sedation given, give patient instructions): Ankle Fracture (DC) Additional Instructions: Please follow up with orthopedics. Alternate between Tylenol and ibuprofen for pain control. Please return to emergency department if symptoms worsen. Is patient prescribed a controlled substance at d/c from ED?: No Referrals: Lise Urias MD [Primary Care Provider] - 1-2 days Melvin Meng DO [Doctor of Osteopathic Medicine] - 1-2 days Time of Disposition: 18:30
== END 2019-01-15 18:45 | disposition home or self-care (01) ==
LOC: EC 16:12
DX: S82.832A Other fracture of upper and lower end of left fibula, initial encounter for closed fracture (principal); J44.9 Chronic obstructive pulmonary disease, unspecified; K21.9 Gastro-esophageal reflux disease without esophagitis; G40.909 Epilepsy, unspecified, not intractable, without status epilepticus; F32.9 Major depressive disorder, single episode, unspecified; G47.30 Sleep apnea, unspecified; F17.200 Nicotine dependence, unspecified, uncomplicated; Z88.0 Allergy status to penicillin; Z88.2 Allergy status to sulfonamides; Z91.048 Other nonmedicinal substance allergy status; Z79.01 Long term (current) use of anticoagulants; Z79.899 Other long term (current) drug therapy; Z86.73 Personal history of transient ischemic attack (TIA), and cerebral infarction without residual deficits; Z86.711 Personal history of pulmonary embolism; Z86.718 Personal history of other venous thrombosis and embolism; Z99.89 Dependence on other enabling machines and devices; Z91.81 History of falling; Z87.39 Personal history of other diseases of the musculoskeletal system and connective tissue; W01.0XXA Fall on same level from slipping, tripping and stumbling without subsequent striking against object, initial encounter; Y93.89 Activity, other specified; Y92.009 Unspecified place in unspecified non-institutional (private) residence as the place of occurrence of the external cause
CPT/HCPCS: 29515; 99283

== ENCOUNTER → 2019-01-24 | Outpatient (CLI) | payer MEDICARE, OTHER ==
--- NOTE | 2019-01-25 09:51 | ECHOF ---
Referral Reason:I48.0 AFib MEASUREMENTS -------- HEIGHT: 157.5 cm WEIGHT: 131.1 kg BP: RVIDd: 3.3 cm (< 3.3) IVSd: 1.1 cm (0.6 - 1.1) LVIDd: 3.0 cm (3.9 - 5.3) LVPWd: 1.0 cm (0.6 - 1.1) IVSs: 1.3 cm LVIDs: 2.1 cm LVPWs: 1.5 cm LAESV Index (A-L): 32.85 ml/m Ao Diam: 2.8 cm (2.0 - 3.7) AV Cusp: 1.1 cm (1.5 - 2.6) LA Diam: 4.7 cm (2.7 - 3.8) MV EXCURSION: 7.809 mm (> 18.000) MV EF SLOPE: 69 mm/s (70 - 150) EPSS: 0.5 cm MV E Brock: 1.37 m/s MV DecT: 281 ms MV A Brock: 1.42 m/s MV E/A Ratio: 0.96 RAP: 5.00 mmHg RVSP: 35.70 mmHg FINDINGS -------- Sinus rhythm. This was a technically difficult study with suboptimal views. The left ventricular size is normal. There is borderline concentric left ventricular hypertrophy. Overall left ventricular systolic function is normal with, an EF between 55 - 60 %. Mitral Doppler inflow pattern suggests diastolic filling abnormality 16.24. The right ventricle is mildly enlarged. LA is midly dilated 29-33ml/m2. The right atrial size is normal. xx ml of Lumason was utilized for enhancement of images. Interatrial and interventricular septum intact. There is mild aortic valve sclerosis. There is no evidence of aortic regurgitation. There is no e vidence of aortic stenosis. The mitral valve leaflets are mildly thickened. Mild mitral annular calcification present. Mild-t o-moderate mitral regurgitation is present. Mild mitral stenosis , with a MVA of 2.5cm (by PHT) Mild tricuspid regurgitation present. There is mild pulmonary hypertension. The right ventricular systolic pressure, as measured by Doppler, is 35.70mmHg. There is no pulmonic regurgitation present. The aortic root size is normal. IVC Not well visulized. There is no pericardial effusion. CONCLUSIONS -------- 1. Sinus rhythm. 2. This was a technically difficult study with suboptimal views. 3. The left ventricular size is normal. 4. There is borderline concentric left ventricular hypertrophy. 5. Overall left ventricular systolic function is normal with, an EF between 55 - 60 %. 6. Mitral Doppler inflow pattern suggest diastolic filling abnormality 16.24. 7. The right ventricle is mildly enlarged. 8. LA is midly dilated 29-33ml/m2. 9. The right atrial size is normal. 10. xx ml of Lumason was utilized for enhancement of images. 11. Interatrial and interventricular septum intact. 12. There is mild aortic valve sclerosis. 13. There is no evidence of aortic regurgitation. 14. There is no evidence of aortic stenosis. 15. The mitral valve leaflets are mildly thickened. 16. Mild mitral annular calcification present. 17. [id number] mitral regurgitation is present. 18. Mild mitral stenosis. 19. , with a MVA of 2.5cm (by PHT) 20. Mild tricuspid regurgitation present. 21. There is mild pulmonary hypertension. 22. The right ventricular systolic pressure, as measured by Doppler, is 35.70mmHg. 23. There is no pulmonic regurgitation present. 24. The aortic root size is normal. 25. IVC Not well visulized. 26. There is no pericardial effusion. PERSONAL INJURY LEGAL ASSISTANT: Chapis Rosado RDCS
== END | disposition home or self-care (01) ==
LOC: RADECHMAIN 15:30
PROVIDERS: ATTEND Family Medicine
DX: I08.1 Rheumatic disorders of both mitral and tricuspid valves (principal); I27.20 Pulmonary hypertension, unspecified; I48.0 Paroxysmal atrial fibrillation
CPT/HCPCS: C8929; Q9950; 93306

== ENCOUNTER → 2019-08-02 | Outpatient (CLI) | payer MEDICARE, OTHER ==
--- NOTE | 2019-08-03 08:00 | US ---
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 MRI at ortho office showed left renal lesion EXAM MEASUREMENTS: Right Kidney: 9.6 x 4.6 x 5.1 cm Left Kidney: 10.2 x 3.5 x 4.8 cm limited imaging due to obesity Right Kidney: No hydronephrosis or masses seen Left Kidney: questionable 2-4cm lesion noted on anterior wall of left renal, dromedary hump versus ot her etiology Bladder: wnl There is no evidence for hydronephrosis at this point in time. No nephrolithiasis is seen. The urina ry bladder is anechoic. IMPRESSION: 1. The left renal lesion seen on MRI is extremely ill-defined and very suboptimally visualized on ult rasound. Ultrasound is nondiagnostic for further characterization. Enhanced three-phase CT abdomen or MR abdomen with contrast is recommended for further evaluation. 2. Right kidney is grossly unremarkable but again suboptimally seen due to patient body habitus.
== END | disposition home or self-care (01) ==
LOC: RADUSWWP 15:23
PROVIDERS: ATTEND Family Medicine
DX: N28.89 Other specified disorders of kidney and ureter (principal); D49.512 Neoplasm of unspecified behavior of left kidney
CPT/HCPCS: 76770

== ENCOUNTER → 2019-08-22 | Outpatient (CLI) | payer MEDICARE, OTHER | END | disposition home or self-care (01) | LOC: RADMRIMAIN 06:54 | PROVIDERS: ATTEND Family Medicine | DX: Z53.9 Procedure and treatment not carried out, unspecified reason (principal) ==

== ENCOUNTER → 2019-08-29 | Outpatient (CLI) | payer MEDICARE, OTHER ==
[2019-08-29 12:45] LABS: INR 1.2 (<1.2); Prothrombin Time 11.9 sec (9.0-12.0)
== END | disposition home or self-care (01) ==
LOC: LABWHC1 11:24
PROVIDERS: ATTEND Nurse Practitioner Family
DX: Z51.81 Encounter for therapeutic drug level monitoring (principal); Z79.01 Long term (current) use of anticoagulants
CPT/HCPCS: 36415; 85610

== ENCOUNTER 2020-03-24 22:18 | Emergency (ER) | payer MEDICARE, OTHER ==
[2020-03-24 22:26] VITALS: RESP 18; TEMP 97.9
--- NOTE | 2020-03-24 22:51 | ED ---
Lower Extremity Injury HPI - General Chief Complaint: Extremity Injury, Lower Stated Complaint: R leg pain,dizziness Time Seen by Provider: 03/24/20 22:22 Source: patient, EMS Mode of arrival: EMS Limitations: physical limitation - History of Present Illness Initial Comments: Natali is a 54-year-old female who presents to the ER today for evaluation of a right leg injury. Patient reports that this evening she was with her dog at the dog park, he states that she stepped into a hole causing her to trip and fall onto her right knee. Patient was able to get up and was ambulatory at the time but reports that after going home the pain in her knee progressively worsened point where she continued to have a sheet over it. She states that she got up and walked in her hallway to get dressed to come the hospital and began feeling very lightheaded and nauseated decided to call the ambulance for transport. Patient reports she feels better sitting down but has persistent pain in her right knee and pain in the right hip. Injury happened approximately 4 hours prior to arrival and patient has been ambulatory since. She denies any head neck or back pain. - Related Data Home Medications Medication Instructions Recorded Confirmed Albuterol Inhaler (Mhu) [Ventolin 1 - 2 puff INHALATION Q6HR PRN 11/16/18 11/22/18 Hfa Inhaler (Mhu)] Albuterol Nebulized [Ventolin 2.5 mg INHALATION QID PRN 11/16/18 11/22/18 Nebulized] Citalopram Hydrobromide [CeleXA] 20 mg PO DAILY 11/16/18 11/22/18 Furosemide [Lasix] 40 mg PO Q72H PRN 11/16/18 11/22/18 HYDROcodone/APAP 10-325MG [[place] 1 tab PO DAILY PRN 11/16/18 11/22/18 10-325] Pantoprazole Sodium 20 mg PO DAILY 11/16/18 11/22/18 Potassium Chloride ER [K-Dur 10] 20 meq PO Q72H PRN 11/16/18 11/22/18 Tiotropium 18 Mcg/Puff [Spiriva] 1 puff INHALATION 1200 11/16/18 11/22/18 Phenytoin Sodium Extended 400 mg PO BID 11/22/18 11/22/18 [Dilantin] Warfarin [Coumadin] 5 mg PO DAILY 11/22/18 11/22/18 Previous Rx's Medication Instructions Recorded Aspirin 325 mg PO DAILY tab 11/19/18 Atorvastatin [Lipitor] 40 mg PO HS #30 tab 11/19/18 Montelukast [Singulair] 10 mg PO HS #30 tab 11/19/18 Nicotine 21Mg/24Hr Patch [Habitrol] 1 patch TRANSDERM DAILY #30 patch 11/19/18 lisinopriL [Zestril] 5 mg PO DAILY #30 tab 11/19/18 Allergies Allergy/AdvReac Type Severity Reaction Status Date / Time Penicillins Allergy Rash/Hives Verified 03/24/20 22:26 Sulfa (Sulfonamide Allergy Rash/Hives Verified 03/24/20 22:26 Antibiotics) wool Allergy Rash/Hives Verified 03/24/20 22:26 ivory soap Allergy Rash/Hives Uncoded 01/15/19 16:25 Review of Systems ROS Statement: Those systems with pertinent positive or pertinent negative responses have been documented in the HPI. ROS Other: All systems not noted in ROS Statement are negative. Past Medical History Past Medical History: Blood Disorder, Cancer, COPD, CVA/TIA, Deep Vein Thrombosis (DVT), GERD/Reflux, Hyperlipidemia, Pneumonia, Pulmonary Embolus (PE), Seizure Disorder, Sleep Apnea/CPAP/BIPAP Additional Past Medical History / Comment(s): TIA-no residual effects, blood cecilia t left leg and PE left lung, last seizure 2-3 years ago, bronchitis, kidney stones, protein S deficiency, occasional bilateral ankle edema, past hx falls, weakness in candida legs, dizzy, "black spot on lung" History of Any Multi-Drug Resistant Organisms: None Reported Past Surgical History: Tubal Ligation, Uterine Ablation Additional Past Surgical History / Comment(s): D&C, bronchoscopy with L lung biopsy Past Anesthesia/Blood Transfusion Reactions: No Reported Reaction Past Psychological History: Depression Smoking Status: Current every day smoker Past Alcohol Use History: None Reported Past Drug Use History: None Reported - Past Family History Father Additional Family Medical History / Comment(s): Mother Family Medical History: No Reported History Additional Family Medical History / Comment(s): Mother of a CVA at the age of 71 yrs. Brother(s) Family Medical History: No Reported History Additional Family Medical History / Comment(s): Patient has no children. General Exam - General Exam Comments Initial Comments: Physical Exam GENERAL: Patient is well-developed and well-nourished. Patient is nontoxic and well-hydrated and is in no distress. HENT: Normocephalic, Atraumatic. EYES: PERRL, EOMI PULMONARY: Unlabored respirations. CARDIOVASCULAR: RRR Warm and well perfused extremities ABDOMEN: Non-distended SKIN: Abrasion and bruising to right knee : Deferred NEUROLOGIC: Alert and oriented Normal speech MUSCULOSKELETAL: Moving all extremities with no apparent injury Decreased ROM of right knee secondary to pain, no shortening or rotation of the knee noted PSYCHIATRIC: No SI/HI Limitations: physical limitation Course Vital Signs 03/24/20 22:21 Temperature 97.9 F Pulse Rate 79 Respiratory 18 Rate Blood Pressure 108/82 O2 Sat by Pulse 99 Oximetry Medical Decision Making - Medical Decision Making The patient was seen and evaluated history was obtained from patient 54-year-old morbidly obese female with a fall onto her right cheek is vague with pain and bruising to the knee X-rays are unremarkable patient has been ambulatory at this time patient stable for discharge home recommended supportive care with ice and elevation Disposition Clinical Impression: Fall, Right anterior knee pain, Contusion Disposition: HOME SELF-CARE Condition: Stable Instructions (If sedation given, give patient instructions): Knee Pain (ED) Is patient prescribed a controlled substance at d/c from ED?: No Referrals: Lise Urias MD [Primary Care Provider] - 1-2 days
--- NOTE | 2020-03-24 23:27 | XR ---
EXAMINATION TYPE: XR knee complete RT DATE OF EXAM: 03/24/2020 COMPARISON: NONE HISTORY: Fall. Hip pain TECHNIQUE: 3 views FINDINGS: I see no fracture nor dislocation. Joint spaces are normal. There is no sign of joint effus ion. IMPRESSION: Negative right knee exam.
--- NOTE | 2020-03-24 23:29 | XR ---
EXAMINATION TYPE: XR Hip Complete RT DATE OF EXAM: 03/24/2020 COMPARISON: NONE HISTORY: Pain TECHNIQUE: 2 views FINDINGS: 2 views of right hip show no fracture nor dislocation. Joint spaces are normal. Sacroiliac joint is intact. IMPRESSION: Normal right hip exam.
[2020-03-25 00:16] VITALS: BP 120/72; PULSE 82
== END 2020-03-25 00:15 | disposition home or self-care (01) ==
LOC: EC 22:18
DX: S80.01XA Contusion of right knee, initial encounter (principal); K21.9 Gastro-esophageal reflux disease without esophagitis; F32.9 Major depressive disorder, single episode, unspecified; F17.200 Nicotine dependence, unspecified, uncomplicated; E66.01 Morbid (severe) obesity due to excess calories; J44.9 Chronic obstructive pulmonary disease, unspecified; G47.33 Obstructive sleep apnea (adult) (pediatric); G40.909 Epilepsy, unspecified, not intractable, without status epilepticus; Z79.899 Other long term (current) drug therapy; Z79.01 Long term (current) use of anticoagulants; Z68.43 Body mass index [BMI] 50.0-59.9, adult; Z88.0 Allergy status to penicillin; Z88.2 Allergy status to sulfonamides; Z91.048 Other nonmedicinal substance allergy status; Z86.718 Personal history of other venous thrombosis and embolism; Z86.711 Personal history of pulmonary embolism; Z86.73 Personal history of transient ischemic attack (TIA), and cerebral infarction without residual deficits; W01.0XXA Fall on same level from slipping, tripping and stumbling without subsequent striking against object, initial encounter; Y92.89 Other specified places as the place of occurrence of the external cause
CPT/HCPCS: 73502; 99283

== ENCOUNTER → 2020-07-26 | Outpatient (CLI) | payer MEDICARE, OTHER ==
--- NOTE | 2020-07-31 10:10 | P.ARTDOP ---
Arterial Doppler LOWER EXTREMITY ARTERIAL DOPPLER: DATE OF SERVICE: 07/26/2020 Reason for study: Suspected lower extremity occlusive disease. Doppler waveforms: Multiphasic bilaterally throughout. Pulse volume recording: []. Pressure gradients: None. Ankle-brachial indices: Greater than 1 bilaterally. Toe brachial indices: 0.72 on the right, 0.68 on the left Impression: Normal study.
== END | disposition home or self-care (01) ==
LOC: RADUSWWP 12:51
PROVIDERS: ATTEND Internal Medicine
DX: I73.9 Peripheral vascular disease, unspecified (principal)
CPT/HCPCS: 93922

== ENCOUNTER → 2020-08-12 | Outpatient (CLI) | payer MEDICARE, OTHER ==
--- NOTE | 2020-08-12 12:19 | XR ---
EXAMINATION TYPE: XR lumbar spine 2 or 3V DATE OF EXAM: 08/12/2020 COMPARISON: None HISTORY: Lung cancer low back pain TECHNIQUE: Three-view lumbar spine FINDINGS: There 5 lumbar-type vertebral bodies. Pedicles are intact. T12 ribs are rudimentary. There is a grade 2 spondylolisthesis of L4 anterior and L5. Spondylolysis of L4 appears to be present based on these images. There is loss of disc height L4-5. Vertebral body heights are preserved. Remaining disc heights are preserved. IMPRESSION: 1. Grade 2 spondylolisthesis of L4 anterior on L5 with loss of disc height.
[2020-08-12 19:03] LABS: African American GFR (CKD) 59.3 (60.0-200.0); Albumin/Globulin Ratio 1.43 (1.60-3.17); BUN/Creat Ratio 26.67 Ratio (12.00-20.00); Calcium 8.6 mg/dL (8.7-10.3); Chol/HDL Ratio 2.57; Globulin 2.8 g/dL (1.6-3.3); LDL Cholesterol,Calculated 73.4 mg/dL (0.0-131.0); Non-African American GFR(CKD) 51.2 (60.0-200.0); Potassium 4.1 mmol/L (3.5-5.5); Total Bilirubin 0.3 mg/dL (0.2-1.2); Total Protein 6.8 g/dL (6.2-8.2); Uric Acid 8.6 mg/dL (2.9-7.7); VLDL Calculation 20.6 mg/dL (5.00-40.00)
[2020-08-12 19:10] LABS: T4, Free (Free Thyroxine) 1.1 ng/dL (0.80-1.80)
[2020-08-12 19:18] LABS: INR 1.26 (0.90-1.11); Prothrombin Time 13.5 sec (9.9-11.9)
[2020-08-12 19:38] LABS: Basophils # (A) 0.03 X 10*3/uL (0.00-0.10); Basophils % (A) 0.5 %; Eosinophils # (A) 0.16 X 10*3/uL (0.04-0.35); Eosinophils % (A) 2.9 %; HCT 39.5 % (37.2-46.3); HGB 12.3 g/dL (12.0-15.0); Lymphocytes % (A) 23.4 %; MCH 28.9 pg (27.0-32.0); MCHC 31.1 g/dL (32.0-37.0); MCV 92.9 fL (80.0-97.0); Mean Platelet Volume 12.8 fL (9.5-12.2); Monocytes # (A) 0.62 X 10*3/uL (0.20-1.00); Monocytes % (A) 11.2 %; Neutrophils # (A) 3.43 X 10*3/uL (1.80-7.70); Neutrophils % (A) 61.6 %; Platelet Count 88 X 10*3/uL (140-440); RBC 4.25 X 10*6/uL (4.10-5.20); RDW 14.6 % (11.5-14.5); WBC 5.56 X 10*3/uL (4.50-10.00)
[2020-08-12 20:11] LABS: Phenytoin (Dilantin) 2.1 ug/mL (10.0-20.0)
[2020-08-12 22:52] LABS: Hemoglobin A1C 5.4 % (4.0-6.0)
== END | disposition home or self-care (01) ==
LOC: LABWHC1 11:26
PROVIDERS: ATTEND Family Medicine
DX: C34.90 Malignant neoplasm of unspecified part of unspecified bronchus or lung (principal); M43.16 Spondylolisthesis, lumbar region; N18.30 Chronic kidney disease, stage 3 unspecified; I48.0 Paroxysmal atrial fibrillation; G89.4 Chronic pain syndrome
CPT/HCPCS: 36415; 72100; 80053; 80061; 80185; 82550; 83036; 83615; 84439; 84443; 84550; 85025; 85610

== ENCOUNTER → 2020-08-29 | Outpatient (CLI) | payer MEDICARE, OTHER ==
--- NOTE | 2020-08-30 14:53 | MM ---
Reason for exam: screening (asymptomatic). Last mammogram was performed 8 years and 4 months ago. History: Patient is postmenopausal, has history of other cancer at age 52, and is nulliparous. Family history of breast cancer in grandmother. Took hormonal contraceptives for 1 year. Physical Findings: A clinical breast exam by your physician is recommended on an annual basis and results should be correlated with mammographic findings. MG 3D Screening Mammo W/Cad Bilateral CC and MLO view(s) were taken. Prior study comparison: May 13, 2012, bilateral digital screening mammo w/CAD. There are scattered fibroglandular densities. Finding #1: There is a 6 mm indistinct oval mass located 6-7 cm from the nipple in the lower inner quadrant, anterior position of the right breast MLO 60/74 and CC 26/68. Finding #2: There are typically benign round calcifications in both breasts. There is no discrete abnormality. ASSESSMENT: Benign, BI-RAD 2 RECOMMENDATION: Routine screening mammogram of both breasts in 1 year.
== END ==
LOC: RADMAMWWP 13:22
PROVIDERS: ATTEND Family Medicine
DX: Z12.31 Encounter for screening mammogram for malignant neoplasm of breast (principal); Z78.0 Asymptomatic menopausal state; Z80.3 Family history of malignant neoplasm of breast
CPT/HCPCS: 77063; 77067

== ENCOUNTER → 2020-10-07 | Outpatient (CLI) | payer MEDICARE, OTHER ==
[2020-10-07 15:54] LABS: African American GFR (CKD) 59.3 (60.0-200.0); Albumin 3.6 g/dL (3.80-4.90); Albumin/Globulin Ratio 1.29 (1.60-3.17); Anion Gap 8.5 mmol/L (4.00-12.00); BUN/Creat Ratio 20.83 Ratio (12.00-20.00); Calcium 8.4 mg/dL (8.7-10.3); Carbon Dioxide 23.5 mmol/L (21.6-31.8); Globulin 2.8 g/dL (1.6-3.3); Non-African American GFR(CKD) 51.2 (60.0-200.0); Potassium 3.6 mmol/L (3.5-5.5); Total Bilirubin 0.2 mg/dL (0.2-1.2); Total Protein 6.4 g/dL (6.2-8.2)
[2020-10-07 16:54] LABS: Phenytoin (Dilantin) 3.4 ug/mL (10.0-20.0)
== END | disposition home or self-care (01) ==
LOC: LABWHC1 07:18
PROVIDERS: ATTEND Psychiatry & Neurology Pain Medicine
DX: Z51.81 Encounter for therapeutic drug level monitoring (principal); G40.89 Other seizures
CPT/HCPCS: 36415; 80053; 80185

== ENCOUNTER 2020-11-14 10:49 | Observation (INO) | payer MEDICARE, OTHER ==
--- NOTE | 2020-11-14 11:06 | ED ---
General Adult HPI <Howie Soriano - Last Filed: 11/14/20 14:07> - General Source: patient, family (Spouse), EMS, RN notes reviewed Mode of arrival: EMS Limitations: no limitations - History of Present Illness -: days(s) (3) Location: right, lower extremity Radiation: non-radiation Severity scale (1-10): 6 Quality: aching Consistency: constant Improves with: none Worsens with: movement, other (Laying on cart) Associated Symptoms: malaise, weakness, other (Increased sleeping) Treatments Prior to Arrival: none <Jose Wood - Last Filed: 11/14/20 17:30> - General Chief complaint: Neuro Symptoms/Deficit Stated complaint: weakness Time Seen by Provider: 11/14/20 10:59 - History of Present Illness Initial comments: 55-year-old white female presents with her to the emergency room with complaints of 3 days of weakness and right leg numbness. states that patient has fallen twice today in the living room related to dizziness and weakness. Patient states that she sustained right knee pain and there is some bruising noted just below and medial to her knee. Patient has a history of dizziness, DVT, seizures, PE, hypercholesterolemia, lung cancer with radiation 2018 and 2019. Patient also states she is a smoker pack and a half a day. Patient has multiple bruises to bilateral lower extremities, states that it's from her dog and easily bruises. Patient also has a large bruise that is approximately 7 cm x 2 cm left breast lateral side she states could be from fall or dog. Patient states she takes Coumadin which may be the cause of her easy bruising. She denies any cough, chest pain, fevers, nausea, vomiting or diarrhea. states that she has also been sleeping for several hours a day which is new over the past several days as well. Patient appears to fall asleep during the assessment but is easily arousable. (Jose Wood) - Related Data Home Medications Medication Instructions Recorded Confirmed Citalopram Hydrobromide [CeleXA] 20 mg PO DAILY 11/16/18 11/14/20 Furosemide [Lasix] 40 mg PO Q72H 11/16/18 11/14/20 HYDROcodone/APAP 10-325MG [[place] 1 tab PO DAILY PRN 11/16/18 11/14/20 10-325] Pantoprazole Sodium 20 mg PO DAILY 11/16/18 11/14/20 Potassium Chloride ER [K-Dur 10] 20 meq PO Q72H 11/16/18 11/14/20 Tiotropium 18 Mcg/Puff [Spiriva] 1 puff INHALATION RT-DAILY 11/16/18 11/14/20 Phenytoin Sodium Extended 100 mg PO TID 11/22/18 11/14/20 [Dilantin] Warfarin [Coumadin] 5 mg PO SUMOTUTHFRSA 11/22/18 11/14/20 Albuterol Sulfate [Ventolin HFA] 1 - 2 puff INHALATION RT-Q6H PRN 11/14/20 11/14/20 Baclofen 10 mg PO BID 11/14/20 11/14/20 Cyanocobalamin (Vitamin B-12) 5,000 mcg PO DAILY 11/14/20 11/14/20 [Vitamin B-12] Levothyroxine Sodium [Synthroid] 25 mcg PO DAILY 11/14/20 11/14/20 Meclizine [Antivert] 25 mg PO TID PRN 11/14/20 11/14/20 Phenytoin Sodium Extended 200 mg PO TID 11/14/20 11/14/20 Warfarin [Coumadin] 7.5 mg PO WE 11/14/20 11/14/20 Previous Rx's Medication Instructions Recorded Aspirin 325 mg PO DAILY tab 11/19/18 Atorvastatin [Lipitor] 40 mg PO HS #30 tab 11/19/18 Montelukast [Singulair] 10 mg PO HS #30 tab 11/19/18 lisinopriL [Zestril] 5 mg PO DAILY #30 tab 11/19/18 Allergies Allergy/AdvReac Type Severity Reaction Status Date / Time Penicillins Allergy Rash/Hives Verified 03/24/20 22:26 Sulfa (Sulfonamide Allergy Rash/Hives Verified 03/24/20 22:26 Antibiotics) wool Allergy Rash/Hives Verified 03/24/20 22:26 ivory soap Allergy Rash/Hives Uncoded 01/15/19 16:25 Review of Systems ROS Other: All systems not noted in ROS Statement are negative. <Howie Soriano - Last Filed: 11/14/20 14:07> ROS Other: All systems not noted in ROS Statement are negative. <Riske,Jose - Last Filed: 11/14/20 17:30> ROS Statement: Those systems with pertinent positive or pertinent negative responses have been documented in the HPI. Past Medical History Past Medical History: Blood Disorder, Cancer, COPD, CVA/TIA, Deep Vein Thrombo sis (DVT), GERD/Reflux, Hyperlipidemia, Pneumonia, Pulmonary Embolus (PE), Seizure Disorder, Sleep Apnea/CPAP/BIPAP Additional Past Medical History / Comment(s): TIA-no residual effects, blood clot left leg and PE left lung, last seizure 2-3 years ago, bronchitis, kidney stones, protein S deficiency, occasional bilateral ankle edema, past hx falls, weakness in candida legs, dizzy, "black spot on lung" History of Any Multi-Drug Resistant Organisms: None Reported Past Surgical History: Tubal Ligation, Uterine Ablation Additional Past Surgical History / Comment(s): D&C, bronchoscopy with L lung biopsy Past Anesthesia/Blood Transfusion Reactions: No Reported Reaction Past Psychological History: Depression Smoking Status: Current every day smoker Past Alcohol Use History: None Reported Past Drug Use History: None Reported - Past Family History Father Additional Family Medical History / Comment(s): Mother Family Medical History: No Reported History Additional Family Medical History / Comment(s): Mother of a CVA at the age of 71 yrs. Brother(s) Family Medical History: No Reported History Additional Family Medical History / Comment(s): Patient has no children. <Jose Wood - Last Filed: 11/14/20 17:30> General Exam Limitations: no limitations General appearance: alert, in no apparent distress, other (Slow to respond, drowsy) Head exam: Present: atraumatic, normocephalic, normal inspection Eye exam: Present: normal appearance, PERRL, EOMI. Absent: scleral icterus, conjunctival injection, periorbital swelling Pupils: Present: normal accommodation ENT exam: Present: normal exam, normal oropharynx, mucous membranes moist Neck exam: Present: normal inspection, full ROM. Absent: tenderness, meningismus, lymphadenopathy, thyromegaly Respiratory exam: Present: decreased breath sounds. Absent: respiratory distress, stridor, chest wall tenderness, accessory muscle use Cardiovascular Exam: Present: regular rate, normal rhythm, normal heart sounds. Absent: systolic murmur, diastolic murmur, rubs, gallop, clicks GI/Abdominal exam: Present: soft, normal bowel sounds. Absent: distended, t enderness, guarding, rebound, rigid Extremities exam: Present: normal capillary refill. Absent: tenderness, pedal edema, joint swelling, calf tenderness Left Hip exam: Absent: tenderness, swelling Upper Leg exam: Absent: tenderness Knee exam: Absent: tenderness Lower Leg exam: Present: ecchymosis. Absent: tenderness Ankle exam: Absent: tenderness Foot/Toe exam: Present: normal inspection. Absent: tenderness Neurovascular tendon exam: Present: no vascular compromise, motor deficit (Patient unable to lift legs off the bed against gravity; patient is able to bend right knee on command). Absent: abnormal cap refill, extremity cold to touch, pallor, foot drop Gait: not tested/not observed Right Hip exam: Absent: tenderness, swelling Upper Leg exam: Absent: tenderness, swelling Knee exam: Absent: tenderness, swelling Lower Leg exam: Absent: tenderness, swelling Ankle exam: Absent: tenderness, swelling Neurovascular tendon exam: Present: no vascular compromise, pallor. Absent: abnormal cap refill, extremity cold to touch Back exam: Absent: tenderness, CVA tenderness (R), CVA tenderness (L), muscle spasm, paraspinal tenderness, vertebral tenderness Neurological exam: Present: alert, oriented X3, CN II-XII intact Psychiatric exam: Present: normal affect, normal mood Skin exam: Present: warm, dry, intact, normal color, other (Patient has multiple bruises to her lower legs and left breast and upper back from dog). Absent: rash <Jose Wood - Last Filed: 11/14/20 17:30> Course Vital Signs 11/14/20 11/14/20 11/14/20 10:54 14:46 16:45 Temperature 97.7 F 97.6 F Pulse Rate 71 96 81 Respiratory 16 17 18 Rate Blood Pressure 133/103 123/68 125/68 O2 Sat by Pulse 96 97 99 Oximetry EKG Findings - EKG Results: EKG: WNL, sinus rhythm (Ventricular rate of 71, DE interval of 0.16, QRS of 0.80, QTC of 0.447) <Jose Wood - Last Filed: 11/14/20 17:30> Medical Decision Making - Lab Data Result diagrams: 11/14/20 11:49 11/14/20 11:49 <Howie Soriano - Last Filed: 11/14/20 14:07> - Lab Data Result diagrams: 11/14/20 11:49 11/14/20 11:49 <Jose Wood - Last Filed: 11/14/20 17:30> - Medical Decision Making Patient reexamined and reevaluated by myself, Dr. Soriano. I do agree with PA findings. This includes diagnostic agitation treatment plan. Patient states she has been having dizziness over the past couple of days however that is chronic and unchanged. Patient states she has had some difficulty with walking and some intermittent right-sided weakness. Full neurological exam without any evidence of right-sided weakness. No facial weakness. No sensory changes. No extremity weakness. No confusion. Clear speech. GCS 15. Case was discussed with Dr. Elizondo who will admit covering for Dr. Urias with neurology consult. (Howie Soriano) Patient is a PTT of 103.3, PTT is 32.3 and INR is 3.4 is on Coumadin and has no active complaints of hematochezia or hematemesis or hematuria hemoglobin and he matocrit is 11.3 and 35.9 respectively, troponin is negative at 0.012 chest x- ray shows chronic emphysema and left mid lung mass or neoplasm. CT brain shows no midline shift, no hemorrhage and no masses. White blood cell count was negative at 5.3, hemoglobin and hematocrit is stable at 11.5 and 35.9 respectively, glucose is 109. Due to patient's increased weakness and ataxia with frequent falls 2 today, right-sided weakness worsening, will admit patient for TIA and hold Coumadin dosing and recheck PT/INR in the morning. Case discussed with Dr. Soriano who was agreeable to this plan of care (Jose Wood) - Lab Data Lab Results 11/14/20 11/14/20 11/14/20 Range/Units 11:49 11:49 11:49 WBC 5.3 (3.8-10.6) k/uL RBC 4.02 (3.80-5.40) m/uL Hgb 11.5 (11.4-16.0) gm/dL Hct 35.9 (34.0-46.0) % MCV 89.2 (80.0-100.0) fL MCH 28.6 (25.0-35.0) pg MCHC 32.0 (31.0-37.0) g/dL RDW 15.6 H (11.5-15.5) % Plt Count 131 L (150-450) k/uL MPV 8.9 Neutrophils % 67 % Lymphocytes % 20 % Monocytes % 8 % Eosinophils % 2 % Basophils % 0 % Neutrophils # 3.6 (1.3-7.7) k/uL Lymphocytes # 1.1 (1.0-4.8) k/uL Monocytes # 0.4 (0-1.0) k/uL Eosinophils # 0.1 (0-0.7) k/uL Basophils # 0.0 (0-0.2) k/uL PT 32.3 H (9.0-12.0) sec INR 3.4 H (<1.2) APTT 103.3 H* (22.0-30.0) sec Sodium (137-145) mmol/L Potassium (3.5-5.1) mmol/L Chloride (98-107) mmol/L Carbon Dioxide (22-30) mmol/L Anion Gap mmol/L BUN (7-17) mg/dL Creatinine (0.52-1.04) mg/dL Est GFR (CKD-EPI)AfAm (>60 ml/min/1.73 sqM) Est GFR (CKD-EPI)NonAf (>60 ml/min/1.73 sqM) Glucose (74-99) mg/dL Calcium (8.4-10.2) mg/dL Total Bilirubin (0.2-1.3) mg/dL AST (14-36) U/L ALT (4-34) U/L Alkaline Phosphatase (38-126) U/L Troponin I (0.000-0.034) ng/mL Total Protein (6.3-8.2) g/dL Albumin (3.5-5.0) g/dL Urine Color Light Yellow Urine Appearance Clear (Clear) Urine pH 5.5 (5.0-8.0) Ur Specific [place] 1.012 (1.001-1.035) Urine Protein Negative (Negative) Urine Glucose (UA) Negative (Negative) Urine Ketones Negative (Negative) Urine Blood Trace H (Negative) Urine Nitrite Negative (Negative) Urine Bilirubin Negative (Negative) Urine Urobilinogen <2.0 (<2.0) mg/dL Ur Leukocyte Esterase Negative (Negative) Urine RBC 2 (0-5) /hpf Urine WBC 1 (0-5) /hpf Ur Squamous Epith Cells 1 (0-4) /hpf Urine Mucus Rare H (None) /hpf 11/14/20 11/14/20 Range/Units 11:49 11:49 WBC (3.8-10.6) k/uL RBC (3.80-5.40) m/uL Hgb (11.4-16.0) gm/dL Hct (34.0-46.0) % MCV (80.0-100.0) fL MCH (25.0-35.0) pg MCHC (31.0-37.0) g/dL RDW (11.5-15.5) % Plt Count (150-450) k/uL MPV Neutrophils % % Lymphocytes % % Monocytes % % Eosinophils % % Basophils % % Neutrophils # (1.3-7.7) k/uL Lymphocytes # (1.0-4.8) k/uL Monocytes # (0-1.0) k/uL Eosinophils # (0-0.7) k/uL Basophils # (0-0.2) k/uL PT (9.0-12.0) sec INR (<1.2) APTT (22.0-30.0) sec Sodium 138 (137-145) mmol/L Potassium 4.8 (3.5-5.1) mmol/L Chloride 112 H (98-107) mmol/L Carbon Dioxide 22 (22-30) mmol/L Anion Gap 4 mmol/L BUN 26 H (7-17) mg/dL Creatinine 0.91 (0.52-1.04) mg/dL Est GFR (CKD-EPI)AfAm 82 (>60 ml/min/1.73 sqM) Est GFR (CKD-EPI)NonAf 71 (>60 ml/min/1.73 sqM) Glucose 109 H (74-99) mg/dL Calcium 8.4 (8.4-10.2) mg/dL Total Bilirubin 0.2 (0.2-1.3) mg/dL AST 39 H (14-36) U/L ALT 32 (4-34) U/L Alkaline Phosphatase 110 (38-126) U/L Troponin I <0.012 (0.000-0.034) ng/mL Total Protein 6.9 (6.3-8.2) g/dL Albumin 3.4 L (3.5-5.0) g/dL Urine Color Urine Appearance (Clear) Urine pH (5.0-8.0) Ur Specific [place] (1.001-1.035) Urine Protein (Negative) Urine Glucose (UA) (Negative) Urine Ketones (Negative) Urine Blood (Negative) Urine Nitrite (Negative) Urine Bilirubin (Negative) Urine Urobilinogen (<2.0) mg/dL Ur Leukocyte Esterase (Negative) Urine RBC (0-5) /hpf Urine WBC (0-5) /hpf Ur Squamous Epith Cells (0-4) /hpf Urine Mucus (None) /hpf Disposition <Howie Soriano - Last Filed: 11/14/20 14:07> Is patient prescribed a controlled substance at d/c from ED?: No Decision Date: 11/14/20 Decision Time: 15:00 <Jose Wood - Last Filed: 11/14/20 17:30> Clinical Impression: TIA (transient ischemic attack) Disposition: ADMITTED IP TO THIS HOSP Condition: Fair Referrals: Lise Urias MD [Primary Care Provider] - 1-2 days
[2020-11-14] MEDS ORDERED: SODIUM CHLORIDE 0.9% 1,000 ML IV STA (11:25)
--- NOTE | 2020-11-14 11:52 | CT ---
EXAMINATION TYPE: CT brain wo con DATE OF EXAM: 11/14/2020 HISTORY: Neuro deficit, acute onset, stroke suspected. History of lung cancer. CT DLP: 1055.4 mGycm. Automated Exposure Control for Dose Reduction was Utilized. TECHNIQUE: CT scan of the head is performed without contrast. COMPARISON: CT brain November 16, 2018. FINDINGS: There is no acute intracranial hemorrhage or midline shift identified. There is mild to m oderate diffuse ventricular and sulcal prominence consistent with diffuse age-related cerebral atroph y. There is mild low-attenuation in the periventricular white matter consistent with chronic small v essel ischemic change. The globes are intact and the visualized sinuses are clear. IMPRESSION: No acute intracranial hemorrhage or midline shift. There is mild to moderate diffuse ag e-related cerebral atrophy and mild chronic small vessel ischemic change redemonstrated. No signific ant change from prior CT.
--- NOTE | 2020-11-14 11:55 | XR ---
EXAMINATION TYPE: XR chest 2V DATE OF EXAM: 11/14/2020 COMPARISON: Chest CT November 17, 2018. Chest x-ray November 23, 2018. PET/CT December 10, 2018 HISTORY: Altered mental status and weakness. TECHNIQUE: Frontal and lateral views of the chest are obtained. FINDINGS: There is mild emphysematous change with persistent left midlung mass. . There is suggesti on of new lateral right mid to lower lung nodule over the posterior eighth rib. No pleural effusion o r pneumothorax seen bilaterally. The cardiac silhouette size is stable and upper limits of normal. The osseous structures are intact. IMPRESSION: Chronic emphysematous change with persistent suspicious left mid lung mass or neoplasm. Possible new right-sided nodule. No new focal infiltrate.
[2020-11-14 12:13] LABS: Basophils % (A) 0 %; Eosinophils # (A) 0.1 k/uL (0-0.7); Eosinophils % (A) 2 %; HCT 35.9 % (34.0-46.0); HGB 11.5 gm/dL (11.4-16.0); Lymphocytes # (A) 1.1 k/uL (1.0-4.8); Lymphocytes % (A) 20 %; MCH 28.6 pg (25.0-35.0); MCV 89.2 fL (80.0-100.0); Mean Platelet Volume 8.9; Monocytes # (A) 0.4 k/uL (0-1.0); Monocytes % (A) 8 %; Neutrophils # (A) 3.6 k/uL (1.3-7.7); Neutrophils % (A) 67 %; Platelet Count 131 k/uL (150-450); RBC 4.02 m/uL (3.80-5.40); RDW 15.6 % (11.5-15.5); WBC 5.3 k/uL (3.8-10.6)
[2020-11-14 12:53] LABS: INR 3.4 (<1.2); Prothrombin Time 32.3 sec (9.0-12.0)
[2020-11-14 13:01] LABS: Partial Thromboplastin Time 103.3 sec (22.0-30.0)
[2020-11-14 13:14] LABS: Albumin 3.4 g/dL (3.5-5.0); Calcium 8.4 mg/dL (8.4-10.2); Potassium 4.8 mmol/L (3.5-5.1); Total Bilirubin 0.2 mg/dL (0.2-1.3); Total Protein 6.9 g/dL (6.3-8.2)
[2020-11-14 13:34] LABS: Appearance,Urine Clear (Clear); Bilirubin,Urine Negative (Negative); Blood,Urine Trace (Negative); Color,Urine Light Yellow; Glucose,Urine (UA) Negative (Negative); Ketones,Urine Negative (Negative); Leukocyte Esterase,Urine Negative (Negative); Mucus,Urine Rare /hpf; Nitrite,Urine Negative (Negative); PH, Urine 5.5 (5.0-8.0); Protein,Urine Negative (Negative); RBC,Urine 2 /hpf (0-5); Specific Gravity,Urine 1.012 (1.001-1.035); Squamous Epithelial Cell,Urine 1 /hpf (0-4); Urobilinogen,Urine <2.0 mg/dL (<2.0); WBC,Urine 1 /hpf (0-5)
[2020-11-14] MEDS ORDERED: ACETAMINOPHEN TAB 325 MG TAB PO PRN (14:10)
[2020-11-14] MEDS ORDERED: NALOXONE 0.4 MG/ML 1 ML VIAL IV PRN (14:10)
[2020-11-14] MEDS: SODIUM CHLORIDE 0.9% 1,000 ML IV SCH (16:48)
[2020-11-14 17:56] LABS: Glucose,Whole Blood 176 mg/dL (75-99)
[2020-11-14] MEDS ORDERED: ALBUTEROL NEBULIZED 2.5 MG/3 ML INHALATION PRN (18:25)
[2020-11-14] MEDS ORDERED: HYDROcodone/APAP 10-325MG 1 EACH TAB PO PRN (18:25)
[2020-11-14] MEDS ORDERED: PHENYTOIN SODIUM 200 MG PO SCH (22:00)
[2020-11-14] MEDS: MONTELUKAST 10 MG TAB PO SCH (22:02)
[2020-11-14] MEDS: BACLOFEN 10 MG TAB PO SCH (22:02)
[2020-11-14] MEDS: PHENYTOIN SODIUM EXTENDED 100 MG CAP PO SCH (22:03)
[2020-11-14] MEDS: ATORVASTATIN 40 MG TAB PO SCH (22:03)
[2020-11-14] MEDS: NICOTINE 21MG/24HR PATCH TRANSDERM SCH (22:08)
--- NOTE | 2020-11-14 23:16 | P.HPIM ---
History of Present Illness H&P Date: 11/14/20 Chief Complaint: CVA/TIA, history of seizure, COPD, hypertension and coagulo serafin HISTORY OF PRESENT ILLNESS 55 year-old morbidly obese female one of Dr. 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 fib. She presented to demurs department with her aspirin today complaining of significant weakness for the last 3 days become much worse today with significant weakness in the right side of her arm and leg with difficulty of speech and significant aphasia patient also has been having significant dizziness lightheadedness with presyncope like symptoms she fell twice today abruptly and sustain slight injury in her right knee with mild pain and bruises, she was seen and evaluated continue to have slight weakness in the right side apparently she is known to have history of lung cancer post radiation back in 2019 also known to have history of coagulopathy has been on anticoagulation with warfarin to my surprise her INR was close to 10 today with PT was close to 100. CAT scan of the brain was performed did not show any intracranial hemorrhage or bleed no midline shift there is mild to moderate diffuse age related cerebral atrophy with chronic small vessel ischemic change no significant other changes otherwise. Chest x-ray came back with a chronic emphysematous change with persistent suspicion of left middle lung mass or neoplasm possible new right sided nodular. Patient laboratory value shows PTT of 103 with INR 3.4 and PTT was 32.3 normal CBC her kidney function was normal blood sugar was mildly elevated urine did not show any infection COVID-19 by PCR was negative. Patient's symptoms did not improve still consistent with weakness of the right side along with speech abnormality consistent with mid cerebral distribution pathology. Patient be admitted to the hospital her Dilantin level will be rechecked patient be seen neurology might require to go for an MRI of the brain along with EEG CTA of the neck to evaluate circulation of her carotid artery continue to watch patient on hospital monitor as well. Constitutional: No fever, no chills, no night sweats. No weight change. No weakness, fatigue or lethargy. No daytime sleepiness. Morbid obesity EENT: No headache. No blurred vision or double vision, no loss of vision. No loss of Hearing, no ringing in the ears, no dizziness. No nasal drainage or congestion. No epistaxis. No sore throat. Lungs: Significant shortness of breath mild cough wheezes. Cardiovascular: No chest pain, no lower extremity edema. No palpitations. No paroxysmal nocturnal dyspnea. No orthopnea. No lightheadedness or dizziness. No syncopal episodes. Abdominal: No abdominal pain. No nausea, vomiting. No diarrhea. No constipation. No bloody or tarry stools.. No loss of appetite. Genitourinary: No dysuria, increased frequency, urgency. No urinary retention. Musculoskeletal: Generalized myalgia and arthralgia with abnormal balance and gait slight weakness in the right side. Integumentary: No wounds, no lesions. No rash or pruritus. No unusual bruising. No change in hair or nails. Neurologic: Positive weakness of the right side along with speech problem and aphasia without dysphagia currently Psychiatric: No depression. No anxiety. No mood swings. Endocrine: No abnormal blood sugars. No weight change. No excessive sweating or thirst. No cold intolerance. SOCIAL HISTORY She smokes one and half pack a day for the last 40 years willing to try nicotine patch try to quit, patient does not drink alcohol, she has sleep apnea he uses C PAP she is on the with her and has been retired so far for any years. FAMILY HISTORY Her father dying at age 56 from [place], mother dying her 70 from the cardiac infarction, patient had 2 brothers and half brother one of them from drug overdose patient does not have any children. PHYSICAL EXAMINATION Gen: This is a morbidly obese does not look in any respiratory distress laying in bed with her head slightly bit up able to express herself with mild slurred speech. HEENT: Head is atraumatic, normocephalic. Pupils equal, round. Sclerae is anicteric. NECK: Supple. No JVD. No lymphadenopathy. No thyromegaly. LUNGS: Decreased breath some bilaterally with fine rhonchi positive mild expiratory wheezes. HEART: Regular rate and rhythm. S1, S2 no S3 positive PVCs with no irregularity. ABDOMEN: Soft. Bowel sounds are present. No masses. No tenderness. EXTREMITIES: 1+ edema slight bruise in both knees specially in the right side. NEUROLOGICAL: Patient is awake, alert and oriented x3. Cranial nerves 2 through 12 significant weakness in the right side compared to left side 3 out of 5, not been able to do gait exam at this point patient is not been able to walk without assistance. ASSESSMENT AND PLAN 1. TIA/CVA: Patient will be admitted to the hospital, we'll consult neurology, brain CAT scan doesn't show any major abnormality except small vessel disease patient will go for an MRI of the brain along with CT of the neck to see if there is any blockage and any specific area of concern with MRI in the left mid cerebral artery distribution. Patient can benefit from baby aspirin beside been on warfarin at this point antiplatelet agent would not be started at this point. 2 seizure: Patient has been on Dilantin 200 mg 3 times a day Dilantin level will be requested if the level is elevated might need to adjust medication and may be switching patient to Keppra for simplicity with dosage is not such a bad idea. 3 history of coagulopathy with protein S/protein C deficiency patient has been on warfarin INR apparently has been done on regular basis according to patient has been stable without major fluctuation up and down. 4 COPD: Patient can benefit from albuterol along with ipratropium nebulizer continue spit leave the and Singulair. 5 hyperlipidemia: Remain on atorvastatin 40 mg daily. 6 chronic diastolic congestive heart failure: Remain on furosemide 40 mg daily along with lisinopril 5 mg a day. 7 history of hypertension: Weight control on lisinopril. 8 chronic depression: Has been on site citalopram 20 mg a day. 9 hypothyroidism: On levothyroxine 25 g daily. 10 history of lung cancer: Post radiation back in 2019 not a clear whether she seen pulmonary or not this point. 11 DVT prophylaxis: Remain on warfarin with INR has been over therapeutic this point resume warfarin in 24 hours. 12 GI prophylaxis: Continue pantoprazole 20 mg daily. 11. COVID-19 testing. Was negative Patient will be admitted to the hospital for a minimum of 2 night stay. Past Medical History Past Medical History: Blood Disorder, Cancer, COPD, CVA/TIA, Deep Vein Thrombosis (DVT), GERD/Reflux, Hyperlipidemia, Pneumonia, Pulmonary Embolus (P E), Seizure Disorder, Sleep Apnea/CPAP/BIPAP Additional Past Medical History / Comment(s): TIA-no residual effects, blood clot left leg and PE left lung, last seizure 2-3 years ago, bronchitis, kidney stones, protein S deficiency, occasional bilateral ankle edema, past hx falls, weakness in candida legs, dizzy, "black spot on lung" History of Any Multi-Drug Resistant Organisms: None Reported Past Surgical History: Tubal Ligation, Uterine Ablation Additional Past Surgical History / Comment(s): D&C, bronchoscopy with L lung biopsy Past Anesthesia/Blood Transfusion Reactions: No Reported Reaction Past Psychological History: Depression Smoking Status: Current every day smoker Past Alcohol Use History: None Reported Past Drug Use History: None Reported - Past Family History Father Additional Family Medical History / Comment(s): Mother Family Medical History: No Reported History Additional Family Medical History / Comment(s): Mother of a CVA at the age of 71 yrs. Brother(s) Family Medical History: No Reported History Additional Family Medical History / Comment(s): Patient has no children. Medications and Allergies Home Medications Medication Instructions Recorded Confirmed Type Citalopram Hydrobromide [CeleXA] 20 mg PO DAILY 11/16/18 11/14/20 History Furosemide [Lasix] 40 mg PO Q72H 11/16/18 11/14/20 History HYDROcodone/APAP 10-325MG [[place] 1 tab PO DAILY PRN 11/16/18 11/14/20 History 10-325] Pantoprazole Sodium 20 mg PO DAILY 11/16/18 11/14/20 History Potassium Chloride ER [K-Dur 10] 20 meq PO Q72H 11/16/18 11/14/20 History Tiotropium 18 Mcg/Puff [Spiriva] 1 puff INHALATION RT-DAILY 11/16/18 11/14/20 History Aspirin 325 mg PO DAILY tab 11/19/18 11/14/20 Rx Atorvastatin [Lipitor] 40 mg PO HS #30 tab 11/19/18 11/14/20 Rx Montelukast [Singulair] 10 mg PO HS #30 tab 11/19/18 11/14/20 Rx lisinopriL [Zestril] 5 mg PO DAILY #30 tab 11/19/18 11/14/20 Rx Phenytoin Sodium Extended 100 mg PO TID 11/22/18 11/14/20 History [Dilantin] Warfarin [Coumadin] 5 mg PO SUMOTUTHFRSA 11/22/18 11/14/20 History Albuterol Sulfate [Ventolin HFA] 1 - 2 puff INHALATION RT-Q6H PRN 11/14/20 11/14/20 History Baclofen 10 mg PO BID 11/14/20 11/14/20 History Cyanocobalamin (Vitamin B-12) 5,000 mcg PO DAILY 11/14/20 11/14/20 History [Vitamin B-12] Levothyroxine Sodium [Synthroid] 25 mcg PO DAILY 11/14/20 11/14/20 History Meclizine [Antivert] 25 mg PO TID PRN 11/14/20 11/14/20 History Phenytoin Sodium Extended 200 mg PO TID 11/14/20 11/14/20 History Warfarin [Coumadin] 7.5 mg PO WE 11/14/20 11/14/20 History Allergies Allergy/AdvReac Type Severity Reaction Status Date / Time Penicillins Allergy Rash/Hives Verified 03/24/20 22:26 Sulfa (Sulfonamide Allergy Rash/Hives Verified 03/24/20 22:26 Antibiotics) wool Allergy Rash/Hives Verified 03/24/20 22:26 ivory soap Allergy Rash/Hives Uncoded 01/15/19 16:25 Physical Exam Vitals: Vital Signs Temp Pulse Resp BP Pulse Ox 11/14/20 16:45 81 18 125/68 99 11/14/20 14:46 97.6 F 96 17 123/68 97 11/14/20 10:54 97.7 F 71 16 133/103 96 Intake and Output 11/14/20 11/14/20 11/14/20 06:59 14:59 22:59 Other: Weight 142.882 kg Results CBC & Chem 7: 11/14/20 11:49 11/14/20 11:49 Labs: Abnormal Lab Results - Last 24 Hours (Table) 11/14/20 11/14/20 11/14/20 Range/Units 11:49 11:49 11:49 RDW 15.6 H (11.5-15.5) % Plt Count 131 L (150-450) k/uL PT 32.3 H (9.0-12.0) sec INR 3.4 H (<1.2) APTT 103.3 H* (22.0-30.0) sec Chloride (98-107) mmol/L BUN (7-17) mg/dL Glucose (74-99) mg/dL POC Glucose (mg/dL) (75-99) mg/dL AST (14-36) U/L Albumin (3.5-5.0) g/dL Urine Blood Trace H (Negative) Urine Mucus Rare H (None) /hpf 11/14/20 11/14/20 Range/Units 11:49 17:45 RDW (11.5-15.5) % Plt Count (150-450) k/uL PT (9.0-12.0) sec INR (<1.2) APTT (22.0-30.0) sec Chloride 112 H (98-107) mmol/L BUN 26 H (7-17) mg/dL Glucose 109 H (74-99) mg/dL POC Glucose (mg/dL) 176 H (75-99) mg/dL AST 39 H (14-36) U/L Albumin 3.4 L (3.5-5.0) g/dL Urine Blood (Negative) Urine Mucus (None) /hpf
[2020-11-15] MEDS: SODIUM CHLORIDE 0.9% 1,000 ML IV SCH ×2 (03:38→18:30)
[2020-11-15] MEDS: LEVOTHYROXINE 25 MCG TAB PO SCH (05:17)
[2020-11-15] MEDS: IPRATROPIUM 0.5 MG/2.5 ML NEBU INHALATION SCH ×4 (08:01→20:11)
[2020-11-15] MEDS: PHENYTOIN SODIUM EXTENDED 100 MG CAP PO SCH (08:45)
[2020-11-15] MEDS: lisinopriL 5 MG TAB PO SCH (08:45)
[2020-11-15] MEDS: CITALOPRAM HYDROBROMIDE 20 MG TAB PO SCH (08:45)
[2020-11-15] MEDS: ASPIRIN 325 MG TAB PO SCH (08:45)
[2020-11-15] MEDS: CYANOCOBALAMIN 500 MCG TAB PO SCH (08:45)
[2020-11-15] MEDS: BACLOFEN 10 MG TAB PO SCH ×2 (08:45→21:42)
[2020-11-15] MEDS: PANTOPRAZOLE 40 MG TABLET PO SCH (08:45)
[2020-11-15] MEDS: NICOTINE 21MG/24HR PATCH TRANSDERM SCH (08:46)
[2020-11-15] MEDS ORDERED: FUROSEMIDE 40 MG TAB PO SCH (09:00)
[2020-11-15] MEDS ORDERED: POTASSIUM CHLORIDE ER 20 MEQ TAB.ER PO SCH (09:00)
--- NOTE | 2020-11-15 10:26 | CT ---
EXAMINATION TYPE: CT angio head neck DATE OF EXAM: 11/15/2020 COMPARISON: None all HISTORY: TIA CT DLP: 710 mGycm CONTRAST: Performed without and with IV Contrast, patient injected with 65 ml mL of Isovue 370. Combination Contrast CTA cervical carotids and [place] of [place] CTA cervical carotids with 3-D recons truction Contrast CTA of the cervical carotids was performed 3-D reconstruction imaging obtained at a separate workstation. Right carotid system: Mild plaque is seen of the right common carotid artery. There is mild plaque a lso noted at the carotid bulb and proximal ICA. Estimated diameter reduction right ICA is estimated at 60%. ECA is patent. Right vertebral artery appears unremarkable. Left carotid system: Mild plaque is seen of the left common carotid artery. There is mild plaque als o noted at the carotid bulb and proximal ICA. No significant diameter reduction. ECA is patent. Lef t vertebral artery appears unremarkable. IMPRESSION: 1. Estimated diameter reduction right ICA is estimated at 60%. CTA [place] with 3-D reconstruction Contrast CTA of the [place] of [place] was performed 3-D reconstruction imaging obtained at a separate workstation. Vertebrobasilar system as well as intracranial portions of the internal carotid arteries and their ma naveed tributaries are patent. I do not see evidence for sizable aneurysm or vascular malformation. Pl ease note MRI provides greater sensitivity and specificity. Visualized brain appears grossly unremar kable. IMPRESSION: 1. No significant abnormality.
--- NOTE | 2020-11-15 12:04 | US ---
EXAMINATION TYPE: US carotid duplex BILAT DATE OF EXAM: 11/15/2020 COMPARISON: NONE CLINICAL HISTORY: CVA. EXAM MEASUREMENTS: RIGHT: Peak Systolic Velocity (PSV) cm/sec ----- Right CCA: 91.6 ----- Right ICA: 116 ----- Right ECA: 143 ICA/CCA ratio: 1.27 RIGHT: End Diastole cm/sec ----- Right CCA: 18.2 ----- Right ICA: 46.1 ----- Right ECA: 14.5 LEFT: Peak Systolic Velocity (PSV) cm/sec ----- Left CCA: 76.1 ----- Left ICA: 95.6 ----- Left ECA: 89.9 ICA/CCA ratio: 1.26 LEFT: End Diastole cm/sec ----- Left CCA: 19.0 ----- Left ICA: 23.1 ----- Left ECA: 9.7 VERTEBRALS (direction of flow): Right Vertebral: Antegrade Left Vertebral: Antegrade Rhythm: Normal Mild atherosclerotic plaque at the right common carotid artery bifurcation and proximal internal sinclair tid artery. Mild atherosclerotic plaque at the left common carotid artery bifurcation and proximal in ternal carotid artery. IMPRESSION: 1. Less than 50% stenosis of the bilateral internal carotid arteries. The end-diastolic velocity of t he right ECA is 46.1 cm/s, which is mildly elevated. There is mild atherosclerotic plaque at the bila teral common carotid artery bifurcations and proximal internal carotid arteries. Criteria for Assigning % of Stenosis / Diameter reduction (Estimation based on the indirect measurements of the internal carotid artery velocities (ICA PSV). 1. Normal (no stenosis)=ICA PSV < 125 cm/s: ratio < 2.0: ICA EDV<40 cm/s. 2. Less than 50% stenosis=ICA PSV < 125 cm/s: ratio < 2.0: ICA EDV<40 cm/s. 3. 50 to 69% stenosis=ICA PSV of 125 to 230 cm/s: ration 2.0 ? 4.0: ICA EDV 40-100 cm/s. 4. Greater than 70% stenosis to near occlusion= ICA PSV > 230 cm/s: ratio > 4.0: ICA EDV > 100 cm/s. 5. Near occlusion= ICA PSV velocities may be low or undetectable: variable ratio and ICA EDV. 6. Total occlusion=unable to detect flow.
--- NOTE | 2020-11-15 13:13 | P.CNNES ---
History of Present Illness Consult date: 11/15/20 Requesting physician: Jose Wood Reason for Consult: Transient ischemic attack History of Present Illness: This is a 55-year-old woman with medical history of gait imbalance issues/ataxia with history of Dilantin toxicity, seizure (since 2001), hyperlipidemia, hypertension, obstructive sleep apnea, recurrent DVT and PEs, nonsustained A. fib, protein C and S deficiency ex-tobacco user that presented emergency department on 11/14/2020 for dizziness, feeling unsteady walking and diplopia. She stated for the last 3 days she's been feeling dizzy feeling unsteady walking and had diplopia for the past three days. Also felt she is slurring her speech for the same duration. Patient stated that she is on Dilantin for her seizures and her last seizure was about 4-5 years ago. Patient stated that the about 3 month ago she was on Dilantin 300 mg 3 times a day but that was modified by her primary team to 100 mg 3 times a day and so her levels was subtherapeutic so she was told the to get adjusted by her neurologist (she see's Dr. Walker's team/[place]). So her neurologist team adjusted her medication from 100 mg 3 times a day to 200 mg 3 times a day about a month ago. She feels like she is following as a result denies losing any consciousness. She denies of any focal weakness or numbness. Patient is on Coumadin because of history of DVT, PE and A. fib and the has bruises. It seems some of the patient's home medication includes Lipitor 40 mg, aspirin 325, Coumadin, Dilantin total 300 mg 3 times a day (per on list of home medication but per patient she is on 200mg 1 tab tid) which is very high in my opinoin either way. She is on Synthroid, baclofen, meclizine. Regarding her seizures she said her first seizure was in 2001 and was a she was told grand mal seizure and again her last seizure was about 45 years ago. She said that she was never tried on the Keppra and she denies any history of depression, melissa any behavioral issues. In the past she did see Dr. Waller but decided to see someone else for neurological care and continues to follows-up with Dr. Walker's team. She has history of lower back fracture. Upon reviewing the medical record the patient was seen by Dr. Darby (Neuro-Hospitalist) on 11/17/2018 (progress note) and his note he stated that the patient has gait imbalance, ataxia, dizziness likely from Dilantin toxicity at. And he recommended once Dilantin is less than 20 then the patient can resume on Dilantin 300 in the morning and 400 at night. MRI brain at that time he stated that it showed no evidence of brainstem ischemia. Possibly of some demyelinating disease but the patient does not have any conical feature of MS at this time. Carotid duplex revealed no significant stenosis. Please refer to the his note for further details. Some of the workup in the hospital consisted of: Initial vital signs: Blood pressure of 133/103, heart rate of 71, temperature of 97.7 Fahrenheit oral, respiratory of 16, pulse ox of 96% room air. CT of the head is reported as no acute intracranial hemorrhage or midline shift. There is mild to moderate diffuse age related cerebral atrophy and mild chronic small vessel ischemic changes redemonstrated. No significant change from the prior CT which was in the 2019. I personally reviewed the CT of the head and I do not see any acute or subacute ischemia. There is no bleeding seen on the CT of the head that. There is no evidence of any encephalomalacia supporting the previous stroke that can appreciate on the CT of the head. EKG is reported as normal sinus rhythm. Normal EKG. Carotid duplex and CT angiography of the head and neck are ordered by the primary team and are pending report. White blood cell is 5.3 which is normal. The platelet is 131 which is low. Initial loss serum glucose is 109. The calcium is 8.4, sodium is 138 and both are normal. The creatinine is 0.91 which is normal. AST is 39 which is minimally elevated in the ALTs T is 32 Phenytoin level is 28.1 which is supratherapeutic and is considered toxic level. Review of Systems Review of system: The 12 point system was reviewed and apparent positive and negative per HPI. Past Medical History Past Medical History: Blood Disorder, Cancer, COPD, CVA/TIA, Deep Vein Thrombosis (DVT), GERD/Reflux, Hyperlipidemia, Pneumonia, Pulmonary Embolus (PE), Seizure Disorder, Sleep Apnea/CPAP/BIPAP Additional Past Medical History / Comment(s): TIA-no residual effects, blood clot left leg and PE left lung, last seizure 2-3 years ago, bronchitis, kidney stones, protein S deficiency, occasional bilateral ankle edema, past hx falls, weakness in candida legs, dizzy, "black spot on lung" History of Any Multi-Drug Resistant Organisms: None Reported Past Surgical History: Tubal Ligation, Uterine Ablation Additional Past Surgical History / Comment(s): D&C, bronchoscopy with L lung biopsy Past Anesthesia/Blood Transfusion Reactions: No Reported Reaction Past Psychological History: Depression Smoking Status: Current every day smoker Past Alcohol Use History: None Reported Past Drug Use History: None Reported - Past Family History Father Additional Family Medical History / Comment(s): Mother Family Medical History: No Reported History Additional Family Medical History / Comment(s): Mother of a CVA at the age of 71 yrs. Brother(s) Family Medical History: No Reported History Additional Family Medical History / Comment(s): Patient has no children. Medications and Allergies Home Medications Medication Instructions Recorded Confirmed Type Citalopram Hydrobromide [CeleXA] 20 mg PO DAILY 11/16/18 11/14/20 History Furosemide [Lasix] 40 mg PO Q72H 11/16/18 11/14/20 History HYDROcodone/APAP 10-325MG [[place] 1 tab PO DAILY PRN 11/16/18 11/14/20 History 10-325] Pantoprazole Sodium 20 mg PO DAILY 11/16/18 11/14/20 History Potassium Chloride ER [K-Dur 10] 20 meq PO Q72H 11/16/18 11/14/20 History Tiotropium 18 Mcg/Puff [Spiriva] 1 puff INHALATION RT-DAILY 11/16/18 11/14/20 History Aspirin 325 mg PO DAILY tab 11/19/18 11/14/20 Rx Atorvastatin [Lipitor] 40 mg PO HS #30 tab 11/19/18 11/14/20 Rx Montelukast [Singulair] 10 mg PO HS #30 tab 11/19/18 11/14/20 Rx lisinopriL [Zestril] 5 mg PO DAILY #30 tab 11/19/18 11/14/20 Rx Phenytoin Sodium Extended 100 mg PO TID 11/22/18 11/14/20 History [Dilantin] Warfarin [Coumadin] 5 mg PO SUMOTUTHFRSA 11/22/18 11/14/20 History Albuterol Sulfate [Ventolin HFA] 1 - 2 puff INHALATION RT-Q6H PRN 11/14/20 11/14/20 History Baclofen 10 mg PO BID 11/14/20 11/14/20 History Cyanocobalamin (Vitamin B-12) 5,000 mcg PO DAILY 11/14/20 11/14/20 History [Vitamin B-12] Levothyroxine Sodium [Synthroid] 25 mcg PO DAILY 11/14/20 11/14/20 History Meclizine [Antivert] 25 mg PO TID PRN 11/14/20 11/14/20 History Phenytoin Sodium Extended 200 mg PO TID 11/14/20 11/14/20 History Warfarin [Coumadin] 7.5 mg PO WE 11/14/20 11/14/20 History Allergies Allergy/AdvReac Type Severity Reaction Status Date / Time Penicillins Allergy Rash/Hives Verified 03/24/20 22:26 Sulfa (Sulfonamide Allergy Rash/Hives Verified 03/24/20 22:26 Antibiotics) wool Allergy Rash/Hives Verified 03/24/20 22:26 ivory soap Allergy Rash/Hives Uncoded 01/15/19 16:25 Physical Examination - Vital Signs Vital Signs: Vital Signs Temp Pulse Pulse Resp BP BP Pulse Ox 11/15/20 07:00 98.1 F 76 17 106/72 98 11/15/20 01:44 24 11/15/20 01:22 97.8 F 78 20 149/92 97 11/14/20 21:19 98.2 F 75 22 130/70 95 11/14/20 20:00 22 11/14/20 16:45 81 18 125/68 99 11/14/20 14:46 97.6 F 96 17 123/68 97 11/14/20 10:54 97.7 F 71 16 133/103 96 Intake and Output 11/14/20 11/15/20 11/15/20 22:59 06:59 14:59 Other: Voiding Method Bedside Commode Bedside Commode # Voids 2 1 Weight 142.882 kg 141.6 kg GENERAL: The patient is morbidly obese lying in bed and is not in acute distress. CHEST: The heart rate is regular rate rhythm. No murmurs to auscultation. No carotid bruit bilaterally. LUNG: Clear to auscultation bilaterally no wheezing noted throughout. Not labored breathing. ABDOMEN/GI: Bowel sounds present in all 4 quadrants. No tenderness to palpation throughout. NEUROLOGICAL: Higher mental function: The patient is awake, alert, oriented to self, place and time. Patient is following commands. No aphasia and no neglect. Cranial nerves: The pupils are round, equal and reactive to light and a ccommodation. Visual goetz are full to confrontation throughout. Extraocular movement is intact and has nystagmus looking to right or left (rotatory). Facial sensation is normal to touch throughout. The facial strength is normal throughout. Hearing is normal bilaterally to hand rub. Tongue is midline and moved [id number] without any difficulty. No dysarthria is noted. Shoulder shrug is normal bilaterally. Motor: Gait is deferred. The strength is 5 over 5 throughout. Normal tone and bulk. Cerebellum: Normal finger to nose bilaterally. Sensation: Sensation is normal to touch throughout. Reflexes (right/left): Right brachioradialis and biceps are 3+ and bilateral patellars are 3+ otherwise 2+ throughout. Plantars are upgoing bilaterally. Results Urinalysis is negative for urinary tract infection. Lehman virus patient was not detected. - Laboratory Findings CBC and BMP: 11/14/20 11:49 11/14/20 11:49 Abnormal Lab Findings: Abnormal Labs 11/14/20 11/14/20 11/14/20 11:49 11:49 11:49 RDW 15.6 H Plt Count 131 L PT 32.3 H INR 3.4 H APTT 103.3 H* Chloride BUN Glucose POC Glucose (mg/dL) AST Albumin Urine Blood Trace H Urine Mucus Rare H 11/14/20 11/14/20 11:49 17:45 RDW Plt Count PT INR APTT Chloride 112 H BUN 26 H Glucose 109 H POC Glucose (mg/dL) 176 H AST 39 H Albumin 3.4 L Urine Blood Urine Mucus Assessment and Plan Assessment: Gait imbalance, ataxia, vertigo likely from Dilantin toxicity (she has also Dilantin Toxicity in 10/2018). She is on extremely high Dilantin of total 300mg 1 tab tid and said in the last one month was on Dilatin 200mg 1 tab tid Toxic Dilantin level Supratherapeutic INR (3.4) and PTT (103.3) History of seizures (since 2001) and per patient last seizure was 4-5 years ago Hypertension Hyperlipidemia History of lung cancer status post radiation Reported history of recurrent DVT and PE Reported history of nonsustained atrial fibrillation Reported history of proteinc C and S deficiency on Coumadin Obstructive sleep apnea Morbid Obesity Ex-tobacco user Plan: * CT of the head is reported as no acute intracranial hemorrhage or midline shift. There is mild to moderate diffuse age related cerebral atrophy and mild chronic small vessel ischemic changes redemonstrated. No significant change from the prior CT which was in the 2019. I personally reviewed the CT of the head and I do not see any acute or subacute ischemia. There is no bleeding seen on the CT of the head that. There is no evidence of any encephalomalacia supporting the previous stroke that can appreciate on the CT of the head. * Carotid duplex and CT angiography of the head and neck are ordered by the primary team and are pending report. * Phenytoin level is 28.1 which is supratherapeutic and is considered toxic level. * I stopped Dilantin especially since patient's having repeated episode of Dilantin toxicity. I will start the patient on Keppra 750 mg 1 tablet twice a day and recommend to avoid Dilantin from now on especially since she is having recurrent side-effects. * MRI the brain, EEG and 2D echo are ordered by the primary team are pending * Regarding this history of stroke which I don't see it on the CT of the head he is on aspirin 325 and Lipitor 40 mg for stroke prophylaxis. * We'll defer the rest of the medical management to the primary team * Upon discharge the patient needs to follow-up with her neurologist (Dr. Walker's team). The plan is discussed with the patient's nurse. Thank you for the consultation. Paolo Brooks M.D. Neuro-Hospitalist Time with Patient: Greater than 30
--- NOTE | 2020-11-15 15:06 | MR ---
EXAMINATION TYPE: MR brain wo/w con DATE OF EXAM: 11/15/2020 COMPARISON: CT brain 11/14/2020 HISTORY: CVA TECHNIQUE: Multiplanar, multisequence images of the brain and brainstem is performed without and with IV contras t, utilizing 14 mL intravenous Gadavist . FINDINGS: Diffusion weighted images demonstrate no evidence of a recent infarct or other diffusion ab normality. There is no extra-axial fluid collection. There is encephalomalacia involving the inferio r right cerebellar hemisphere. Extensive confluent and scattered hyperintensities present within the pericallosal, periventricular, subcortical white matter on inversion recovery T2-weighted sequences, fast brain protocol was utilized. The ventricular system and cisternal spaces are normal in size and appearance. The brain volume is age appropriate. Midline structures demonstrate some focal volume loss of the anterior aspect of the corpus callosum, the pituitary, cervical medullary junction are unremarkable, cerebellopontine angles are normal. The craniocervical junction appears within normal limits. Post contrast images demonstrate no abnormal enhancement. The dural venous sinuses appear patent. The visualized sinuses are clear and the globes are intact. IMPRESSION: Probable chronic small vessel ischemic changes, nonspecific white matter demyelination. N o abnormal enhancement to suggest metastatic disease.
--- NOTE | 2020-11-15 18:42 | EEG ---
ELECTROENCEPHALOGRAM REPORT DATE OF SERVICE: 11/15/2020. CLINICAL HISTORY: This is a 55-year-old woman with a history of epilepsy who presented to the emergency department with dizziness and altered mental status. This video EEG is obtained to evaluate for seizure epileptiform activity. RELEVANT MEDICATION: Patient is on Dilantin. EEG TYPE: A routine 21-channel EEG is performed with video using the 10/20 electrode placement system. DESCRIPTION: Wakefulness and drowsiness are obtained. During wakefulness there is a posterior- dominant rhythm of low to moderate voltage, well modulated, well sustained of 7 to 7.5 hertz activity. During drowsiness there is slowing and attenuation of the background activity. There is no physiological stage II architecture seen. There is no focal slowing. Interictal ictal is none. ACTIVATION PROCEDURES: Photic stimulation did not evoke a posterior driving response. There is no abnormality seen during the photic stimulation. Hyperventilation is not performed. CLINICAL INTERPRETATION: This is an abnormal routine EEG. The background slowing is suggestive of mild encephalopathy likely due to toxic metabolic encephalopathy. There are no focal slowing, epileptiform discharges or seizures on the EEG. Clinical correlation is recommended. MMODL / IJN: [id number] / MTDD
[2020-11-15 20:00] VITALS: RESP 18
--- NOTE | 2020-11-15 21:41 | P.PN ---
Subjective Progress Note Date: 11/15/20 HISTORY OF PRESENT ILLNESS 55 year-old morbidly obese female one of Dr. 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 fib. She presented to demurs department with her aspirin today complaining of significant weakness for the last 3 days become much worse today with significant weakness in the right side of her arm and leg with difficulty of speech and significant aphasia patient also has been having significant dizziness lightheadedness with presyncope like symptoms she fell twice today abruptly and sustain slight injury in her right knee with mild pain and bruises, she was seen and evaluated continue to have slight weakness in the right side apparently she is known to have history of lung cancer post radiation back in 2019 also known to have history of coagulopathy has been on anticoagulation with warfarin to my surprise her INR was close to 10 today with PT was close to 100. CAT scan of the brain was performed did not show any intracranial hemorrhage or bleed no midline shift there is mild to moderate diffuse age related cerebral atrophy with chronic small vessel ischemic change no significant other changes otherwise. Chest x-ray came back with a chronic emphysematous change with persistent suspicion of left middle lung mass or neoplasm possible new right sided nodular. Patient laboratory value shows PTT of 103 with INR 3.4 and PTT was 32.3 normal CBC her kidney function was normal blood sugar was mildly elevated urine did not show any infection COVID-19 by PCR was negative. Patient's symptoms did not improve still consistent with weakness of the right side along with speech abnormality consistent with mid cerebral distribution pathology. Patient be admitted to the hospital her Dilantin level will be rechecked patient be seen neurology might require to go for an MRI of the brain along with EEG CTA of the neck to evaluate circulation of her carotid artery continue to watch patient on registered nurse cardiac telemetry as well. 11/15: Patient ended up having more testing at this time including EEG, CTA, echo, carotid ultrasound, going for an MRI of the brain. Sadly as expected her Dilantin level came back slightly bit toxic at 29 patient currently on 200 mg of Dilantin 3 times a day which will be adjusted patient probably benefit from switching to Kepprax which I can leave it up to neurology to make that determination. Meanwhile will start PTOT finalize patient testing and if she is improving possibly discharge the next 24 hours. REVIEW OF SYSTEMS: Constitutional: No fever, no chills, no night sweats. No weight change. No weakness, fatigue or lethargy. No daytime sleepiness. Morbid obesity EENT: No headache. No blurred vision or double vision, no loss of vision. No loss of Hearing, no ringing in the ears, no dizziness. No nasal drainage or congestion. No epistaxis. No sore throat. Lungs: Significant shortness of breath mild cough wheezes. Cardiovascular: No chest pain, no lower extremity edema. No palpitations. No paroxysmal nocturnal dyspnea. No orthopnea. No lightheadedness or dizziness. No syncopal episodes. Abdominal: No abdominal pain. No nausea, vomiting. No diarrhea. No constipation. No bloody or tarry stools.. No loss of appetite. Genitourinary: No dysuria, increased frequency, urgency. No urinary retention. Musculoskeletal: Generalized myalgia and arthralgia with abnormal balance and gait slight weakness in the right side. Integumentary: No wounds, no lesions. No rash or pruritus. No unusual bruising. No change in hair or nails. Neurologic: Positive weakness of the right side along with speech problem and aphasia without dysphagia currently Psychiatric: No depression. No anxiety. No mood swings. Endocrine: No abnormal blood sugars. No weight change. No excessive sweating or thirst. No cold intolerance. PHYSICAL EXAMINATION Gen: This is a morbidly obese does not look in any respiratory distress laying in bed with her head slightly bit up able to express herself with mild slurred speech. HEENT: Head is atraumatic, normocephalic. Pupils equal, round. Sclerae is anicteric. NECK: Supple. No JVD. No lymphadenopathy. No thyromegaly. LUNGS: Decreased breath some bilaterally with fine rhonchi positive mild expiratory wheezes. HEART: Regular rate and rhythm. S1, S2 no S3 positive PVCs with no irregularity. ABDOMEN: Soft. Bowel sounds are present. No masses. No tenderness. EXTREMITIES: 1+ edema slight bruise in both knees specially in the right side. NEUROLOGICAL: Patient is awake, alert and oriented x3. Cranial nerves 2 through 12 significant weakness in the right side compared to left side 3 out of 5, not been able to do gait exam at this point patient is not been able to walk without assistance. ASSESSMENT AND PLAN 1. TIA/CVA: Patient will be admitted to the hospital, we'll consult neurology, brain CAT scan doesn't show any major abnormality except small vessel disease patient will go for an MRI of the brain along with CT of the neck to see if there is any blockage and any specific area of concern with MRI in the left mid cerebral artery distribution. Patient can benefit from baby aspirin beside been on warfarin at this point antiplatelet agent would not be started at this point. 2 seizure: EEG was done patient is slightly bit toxic on Dilantin which dose will be adjusted the patient probably be switched to Keppra. 3 history of coagulopathy with protein S/protein C deficiency We'll resume warfarin patient INR was slightly bit high 4 COPD: Patient can benefit from albuterol along with ipratropium nebulizer continue spit leave the and Singulair. 5 hyperlipidemia: Remain on atorvastatin 40 mg daily. 6 chronic diastolic congestive heart failure: Remain on furosemide 40 mg daily along with lisinopril 5 mg a day. 7 history of hypertension: Weight control on lisinopril. 8 chronic depression: Has been on site citalopram 20 mg a day. 9 hypothyroidism: On levothyroxine 25 g daily. 10 history of lung cancer: Post radiation back in 2019 not a clear whether she seen pulmonary or not this point. discharge planning: Patient is doing well tomorrow hopefully will be able to be discharged home. Objective - Vital Signs Vital signs: Vital Signs Temp 98.1 F 11/15/20 07:00 Pulse 76 11/15/20 07:00 Resp 17 11/15/20 07:00 BP 106/72 11/15/20 07:00 Pulse Ox 98 11/15/20 07:00 Intake & Output 11/14/20 11/15/20 11/15/20 18:59 06:59 18:59 Intake Total 118 Balance 118 Weight 142.882 kg 141.6 kg Intake: Oral 118 Other: Voiding Method Bedside Commode # Voids 1 - Labs CBC & Chem 7: 11/14/20 11:49 11/14/20 11:49 Labs: Abnormal Lab Results - Last 24 Hours (Table) 11/14/20 11/14/20 11/14/20 Range/Units 11:49 11:49 11:49 RDW 15.6 H (11.5-15.5) % Plt Count 131 L (150-450) k/uL PT 32.3 H (9.0-12.0) sec INR 3.4 H (<1.2) APTT 103.3 H* (22.0-30.0) sec Chloride (98-107) mmol/L BUN (7-17) mg/dL Glucose (74-99) mg/dL POC Glucose (mg/dL) (75-99) mg/dL AST (14-36) U/L Albumin (3.5-5.0) g/dL Urine Blood Trace H (Negative) Urine Mucus Rare H (None) /hpf 11/14/20 11/14/20 Range/Units 11:49 17:45 RDW (11.5-15.5) % Plt Count (150-450) k/uL PT (9.0-12.0) sec INR (<1.2) APTT (22.0-30.0) sec Chloride 112 H (98-107) mmol/L BUN 26 H (7-17) mg/dL Glucose 109 H (74-99) mg/dL POC Glucose (mg/dL) 176 H (75-99) mg/dL AST 39 H (14-36) U/L Albumin 3.4 L (3.5-5.0) g/dL Urine Blood (Negative) Urine Mucus (None) /hpf
[2020-11-15] MEDS: MONTELUKAST 10 MG TAB PO SCH (21:42)
[2020-11-15] MEDS: ATORVASTATIN 40 MG TAB PO SCH (21:42)
[2020-11-15] MEDS ORDERED: WARFARIN 5 MG TAB PO SCH (22:00)
[2020-11-16 02:26] VITALS: TEMP 97.7
[2020-11-16] MEDS: LEVOTHYROXINE 25 MCG TAB PO SCH (06:08)
[2020-11-16] MEDS: SODIUM CHLORIDE 0.9% 1,000 ML IV SCH (06:11)
[2020-11-16] MEDS: IPRATROPIUM 0.5 MG/2.5 ML NEBU INHALATION SCH ×2 (07:31→10:55)
[2020-11-16] MEDS: lisinopriL 5 MG TAB PO SCH (08:27)
[2020-11-16] MEDS: ASPIRIN 325 MG TAB PO SCH (08:27)
[2020-11-16] MEDS: CYANOCOBALAMIN 500 MCG TAB PO SCH (08:27)
[2020-11-16] MEDS: BACLOFEN 10 MG TAB PO SCH (08:27)
[2020-11-16] MEDS: PANTOPRAZOLE 40 MG TABLET PO SCH (08:27)
[2020-11-16] MEDS: NICOTINE 21MG/24HR PATCH TRANSDERM SCH (08:27)
[2020-11-16] MEDS: CITALOPRAM HYDROBROMIDE 20 MG TAB PO SCH (08:27)
[2020-11-16 08:35] VITALS: BP 121/77
[2020-11-16 09:05] LABS: INR 2.7 (<1.2)
[2020-11-16 09:06] LABS: Prothrombin Time 26.2 sec (9.0-12.0)
[2020-11-16 11:06] VITALS: PULSE 80
--- NOTE | 2020-11-16 12:17 | P.DS ---
Providers Date of admission: 11/14/20 14:10 Attending physician: Edin Elizondo Consults: 11/14/20 14:10 Consult Physician Urgent Consulting Provider: Paolo Brooks Consult Reason/Comments: tia Do you want consulting provider notified?: Yes Primary care physician: Lise Urias [facility] Course: 55 year-old morbidly obese female one of Dr. 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 fib. She presented to demurs department with her aspirin today complaining of significant weakness for the last 3 days become mu ch worse today with significant weakness in the right side of her arm and leg with difficulty of speech and significant aphasia patient also has been having significant dizziness lightheadedness with presyncope like symptoms she fell twice today abruptly and sustain slight injury in her right knee with mild pain and bruises, she was seen and evaluated continue to have slight weakness in the right side apparently she is known to have history of lung cancer post radiation back in 2019 also known to have history of coagulopathy has been on anticoagulation with warfarin to my surprise her INR was close to 10 today with PT was close to 100. CAT scan of the brain was performed did not show any intracranial hemorrhage or bleed no midline shift there is mild to moderate diffuse age related cerebral atrophy with chronic small vessel ischemic change no significant other changes otherwise. Chest x-ray came back with a chronic emphysematous change with persistent suspicion of left middle lung mass or neoplasm possible new right sided nodular. Patient laboratory value shows PTT of 103 with INR 3.4 and PTT was 32.3 normal CBC her kidney function was normal blood sugar was mildly elevated urine did not show any infection COVID-19 by PCR was negative. Patient's symptoms did not improve still consistent with weakness of the right side along with speech abnormality consistent with mid cerebral distribution pathology. Patient be admitted to the hospital her Dilantin level will be rechecked patient be seen neurology might require to go for an MRI of the brain along with EEG CTA of the neck to evaluate circulation of her carotid artery continue to watch patient on monitoring engineer as well. 11/15: Patient ended up having more testing at this time including EEG, CTA, echo, carotid ultrasound, going for an MRI of the brain. Sadly as expected her Dilantin level came back slightly bit toxic at 29 patient currently on 200 mg of Dilantin 3 times a day which will be adjusted patient probably benefit from switching to Kepprax which I can leave it up to neurology to make that determination. Meanwhile will start PTOT finalize patient testing and if she is improving possibly discharge the next 24 hours. patient examined bedside. She has myocardial weakness involving the right side but sees it is chronic. She is able to move all her extremities does have a walker and a cane at home. No PT/ ot available over the weekend. walk the patient aphasia patient is able to walk without any difficulty can be discharged home with the change in medication. Vitals were reviewed patient reports of 88 and saturating 98% on room air. INR is supratherapeutic at 2.7. We'll hold Coumadin for today patient to resume Coumadin in 48 hours. Instructions provided Discharge diagnosis 1. Gait instability and vertigo secondary to Dilantin toxicity TIA/CVA ruled out 2 seizure 3 history of coagulopathy with protein S/protein C deficiency 4 COPD: 5 hyperlipidemia: 6 chronic diastolic congestive heart failure 7 history of hypertension: 8 chronic depression 9 hypothyroidism: 10 history of lung cancer: Post radiation back in 2019 Discharge with home care and home physical therapy Patient Condition at Discharge: Fair Plan - Discharge Summary Discharge Rx Participant: No New Discharge Prescriptions: New Nicotine 21Mg/24Hr Patch [Habitrol] 1 patch TRANSDERM DAILY #30 patch levETIRAcetam [Keppra] 750 mg PO Q12HR #60 tab Continue HYDROcodone/APAP 10-325MG [Holland 10-325] 1 tab PO DAILY PRN PRN Reason: Pain Citalopram Hydrobromide [CeleXA] 20 mg PO DAILY Potassium Chloride ER [K-Dur 10] 20 meq PO Q72H Pantoprazole Sodium 20 mg PO DAILY Furosemide [Lasix] 40 mg PO Q72H Tiotropium 18 Mcg/Puff [Spiriva] 1 puff INHALATION RT-DAILY Aspirin 325 mg PO DAILY tab Atorvastatin [Lipitor] 40 mg PO HS #30 tab Montelukast [Singulair] 10 mg PO HS #30 tab lisinopriL [Zestril] 5 mg PO DAILY #30 tab Warfarin [Coumadin] 5 mg PO SUMOTUTHFRSA Baclofen 10 mg PO BID Levothyroxine Sodium [Synthroid] 25 mcg PO DAILY Warfarin [Coumadin] 7.5 mg PO WE Meclizine [Antivert] 25 mg PO TID PRN PRN Reason: dizziness Albuterol Sulfate [Ventolin HFA] 1 - 2 puff INHALATION RT-Q6H PRN PRN Reason: Shortness Of Breath Cyanocobalamin (Vitamin B-12) [Vitamin B-12] 5,000 mcg PO DAILY Discontinued Phenytoin Sodium Extended [Dilantin] 100 mg PO TID Phenytoin Sodium Extended 200 mg PO TID Discharge Medication List Citalopram Hydrobromide [CeleXA] 20 mg PO DAILY 11/16/18 [History] Furosemide [Lasix] 40 mg PO Q72H 11/16/18 [History] HYDROcodone/APAP 10-325MG [Holland 10-325] 1 tab PO DAILY PRN 11/16/18 [History] Pantoprazole Sodium 20 mg PO DAILY 11/16/18 [History] Potassium Chloride ER [K-Dur 10] 20 meq PO Q72H 11/16/18 [History] Tiotropium 18 Mcg/Puff [Spiriva] 1 puff INHALATION RT-DAILY 11/16/18 [History] Aspirin 325 mg PO DAILY tab 11/19/18 [Rx] Atorvastatin [Lipitor] 40 mg PO HS #30 tab 11/19/18 [Rx] Montelukast [Singulair] 10 mg PO HS #30 tab 11/19/18 [Rx] lisinopriL [Zestril] 5 mg PO DAILY #30 tab 11/19/18 [Rx] Warfarin [Coumadin] 5 mg PO SUMOTUTHFRSA 11/22/18 [History] Albuterol Sulfate [Ventolin HFA] 1 - 2 puff INHALATION RT-Q6H PRN 11/14/20 [History] Baclofen 10 mg PO BID 11/14/20 [History] Cyanocobalamin (Vitamin B-12) [Vitamin B-12] 5,000 mcg PO DAILY 11/14/20 [History] Levothyroxine Sodium [Synthroid] 25 mcg PO DAILY 11/14/20 [History] Meclizine [Antivert] 25 mg PO TID PRN 11/14/20 [History] Warfarin [Coumadin] 7.5 mg PO WE 11/14/20 [History] Nicotine 21Mg/24Hr Patch [Habitrol] 1 patch TRANSDERM DAILY #30 patch 11/16/20 [Rx] levETIRAcetam [Keppra] 750 mg PO Q12HR #60 tab 11/16/20 [Rx] Follow up Appointment(s)/Referral(s): Lise Urias MD [Primary Care Provider] - 1-2 days Jody Walker MD [Medical Doctor] - 1 Week Discharge Disposition: HOME SELF-CARE
--- NOTE | 2020-11-16 15:00 | ECHOF ---
Referral Reason:lvfunction MEASUREMENTS -------- HEIGHT: 157.5 cm WEIGHT: 141.5 kg BP: IVSd: 1.3 cm (0.6 - 1.1) LVIDd: 4.0 cm (3.9 - 5.3) LVPWd: 1.3 cm (0.6 - 1.1) EDV(Teich): 69 ml IVSs: 1.7 cm LVIDs: 1.8 cm LVPWs: 1.5 cm %IVS Thck: 34 % ESV(Teich): 9 ml EF(Teich): 87 % %FS: 56 % SV(Teich): 60 ml RVIDd: 2.5 cm (< 3.3) Ao Diam: 2.9 cm (2.0 - 3.7) LA Diam: 3.6 cm (2.7 - 3.8) AV Cusp: 1.8 cm (1.5 - 2.6) EPSS: 1.2 cm MV E Brock: 1.32 m/s MV DecT: 193 ms MV Dec Converse: 6.8 m/s MV A Brock: 0.90 m/s MV E/A Ratio: 1.46 MV PHT: 56 ms MR Vmax: 1.89 m/s MR maxP.26 mmHg AV Vmax: 1.25 m/s AV maxP.24 mmHg TR Vmax: 1.42 m/s TR maxP.09 mmHg RAP: 5.00 mmHg RVSP: 13.09 mmHg MV EF SLOPE: 73.35 mm/s (70 - 150) MV EXCURSION: 11.32 mm (> 18.000) FINDINGS -------- This was a technically difficult study with suboptimal views. Morbid Obesity The left ventricular size is normal. There is mild concentric left ventricular hypertrophy. Overa ll left ventricular systolic function is normal with, an EF between 55 - 60 %. The right ventricle is normal in size. The left atrial size is normal. The right atrium was not well visualized. Lumason used Unable to visualize the septum. The aortic valve is trileaflet and appears structurally normal. The mitral valve is normal. The mitral valve leaflets are mildly thickened. There is trace mitral regurgitation. The tricuspid valve appears structurally normal. Trace tricuspid regurgitation present. Right sloan tricular systolic pressure is normal at < 35 mmHg. The pulmonic valve was not well visualized. The aortic root size is normal. IVC Not well visulized. There is no pericardial effusion. CONCLUSIONS -------- 1. The left ventricular size is normal. 2. There is mild concentric left ventricular hypertrophy. 3. Overall left ventricular systolic function is normal with, an EF between 55 - 60 %. 4. The mitral valve leaflets are mildly thickened. 5. There is trace mitral regurgitation. 6. Trace tricuspid regurgitation present. 7. There is no pericardial effusion. REPACKER: Melissa Richards RDCS
[2020-11-16] MEDS ORDERED: WARFARIN 7.5 MG TAB PO SCH (18:00)
--- NOTE | 2020-11-16 18:10 | P.PN ---
Subjective Progress Note Date: 11/16/20 The patient is seen at bedside and she stated she is doing better compared to yesterday. She feels her dizziness is improving. Objective - Vital Signs Vital signs: Vital Signs Temp 97.7 F 11/16/20 07:00 Pulse 80 11/16/20 11:06 Resp 18 11/16/20 07:00 BP 121/77 11/16/20 07:00 Pulse Ox 96 11/16/20 07:00 Intake & Output 11/15/20 11/16/20 11/16/20 18:59 06:59 18:59 Intake Total 118 1580 Output Total 650 Balance 118 930 Intake: Intake, IV Titration 600 Amount Sodium Chloride 0.9% 1, 600 000 ml @ 75 mls/hr IV . [id number] ZARIA Rx#:[id number] Oral 118 980 Output: Urine 650 Other: Voiding Method Bedside Commode # Voids 1 1 3 - Exam GENERAL: The patient is morbidly obese lying in bed and is not in acute distress. NEUROLOGICAL: Higher mental function: The patient is awake, alert, oriented to self, place and time. Patient is following commands. No aphasia and no neglect. Cranial nerves: The pupils are round, equal and reactive to light and accommodation. Visual goetz are full to confrontation throughout. Extraocular movement is intact and has nystagmus looking to right or left (rotatory). Facial sensation is normal to touch throughout. The facial strength is normal throughout. Hearing is normal bilaterally to hand rub. Tongue is midline and moved [id number] without any difficulty. No dysarthria is noted. Shoulder shrug is normal bilaterally. Motor: Gait is deferred. The strength is 5 over 5 throughout. Normal tone and bulk. Cerebellum: Normal finger to nose bilaterally. Sensation: Sensation is normal to touch throughout. Reflexes (right/left): Right brachioradialis and biceps are 3+ and bilateral patellars are 3+ otherwise 2+ throughout. Plantars are upgoing bilaterally. - Labs CBC & Chem 7: 11/14/20 11:49 11/14/20 11:49 Labs: Abnormal Lab Results - Last 24 Hours (Table) 11/14/20 11/16/20 Range/Units 19:08 08:03 PT 26.2 H (9.0-12.0) sec INR 2.7 H (<1.2) Free Phenytoin 3.9 H* (0.8-2.0) ug/mL Assessment and Plan Assessment: Gait imbalance, ataxia, vertigo likely from Dilantin toxicity (she has also Dilantin Toxicity in 10/2018). She is on extremely high Dilantin of total 300mg 1 tab tid and said in the last one month was on Dilatin 200mg 1 tab tid Toxic Dilantin level Supratherapeutic INR (3.4) and PTT (103.3) History of seizures (since 2001) and per patient last seizure was 4-5 years ago Hypertension Hyperlipidemia History of lung cancer status post radiation Reported history of recurrent DVT and PE Reported history of nonsustained atrial fibrillation Reported history of proteinc C and S deficiency on Coumadin Obstructive sleep apnea Morbid Obesity Ex-tobacco user Plan: * CT of the head is reported as no acute intracranial hemorrhage or midline s hift. There is mild to moderate diffuse age related cerebral atrophy and mild chronic small vessel ischemic changes redemonstrated. No significant change from the prior CT which was in the 2019. I personally reviewed the CT of the head and I do not see any acute or subacute ischemia. There is no bleeding seen on the CT of the head that. There is no evidence of any encephalomalacia supporting the previous stroke that can appreciate on the CT of the head. * Routine EEG on 11/15/2020: Is an abnormal routine EEG. The back was slowing suggestive of mild encephalopathy likely due to toxic metabolic encephalopathy. There are no focal slowing, epileptiform discharges or seizure in the EEGMR the brain is reported as probable chronic small vessel ischemic changes, nonspecific white matter demyelination. No abnormal enhancements to suggest metastatic disease. * CT angiography of the head and neck is reported as auto body estimator diameter reduction of right ICA is estimated at 60%. Otherwise no abnormality. * Carotid duplex reported as less than 50% stenosis of bilateral internal carotid artery. The end-diastolic velocities of the right ECA is 46.1 cm/s which is mildly elevated. There is mild_to plaque at the bilateral common carotid artery bifurcation and proximal internal carotid arteries. * 2-D echo was reported as mild concentric left ventricular hypertrophy. Ejection fraction of 55-60%. Left atrial size is normal. * Phenytoin level is 28.1 which is supratherapeutic and is considered toxic level. * I stopped Dilantin especially since patient's having repeated episode of Dilantin toxicity. I startd the patient on Keppra 750 mg 1 tablet twice a day and recommend to avoid Dilantin from now on especially since she is having recurrent side-effects. I know for the primary team to consider titrating down the Dilantin dose once is therapeutic on told the medication is discontinued. * Regarding this history of stroke which I don't see it on the CT of the head he is on aspirin 325 and Lipitor 40 mg for stroke prophylaxis. * We'll defer the rest of the medical management to the primary team * Upon discharge the patient needs to follow-up with her neurologist (Dr. Walker's team) within 1-2 weeks as outpatient. The plan is discussed with the patient's nurse and the primary team. Paolo Brooks M.D. Neuro-Hospitalist Time with Patient: Less than 30
== END 2020-11-16 14:25 | disposition home health service (06) ==
LOC: EC 10:49 → 6NMEDSUR 14:10
PROVIDERS: ADMIT Internal Medicine Geriatric Medicine; ATTEND Internal Medicine Geriatric Medicine
DX: R26.89 Other abnormalities of gait and mobility (principal); T42.0X5A Adverse effect of hydantoin derivatives, initial encounter; G40.409 Other generalized epilepsy and epileptic syndromes, not intractable, without status epilepticus; D68.59 Other primary thrombophilia; I11.0 Hypertensive heart disease with heart failure; I50.32 Chronic diastolic (congestive) heart failure; E78.00 Pure hypercholesterolemia, unspecified; E78.5 Hyperlipidemia, unspecified; Z20.822 Contact with and (suspected) exposure to COVID-19; R91.8 Other nonspecific abnormal finding of lung field; E03.9 Hypothyroidism, unspecified; R47.01 Aphasia; J44.9 Chronic obstructive pulmonary disease, unspecified; G47.33 Obstructive sleep apnea (adult) (pediatric); I73.9 Peripheral vascular disease, unspecified; I48.91 Unspecified atrial fibrillation; W19.XXXA Unspecified fall, initial encounter; M25.561 Pain in right knee; F32.9 Major depressive disorder, single episode, unspecified; F17.210 Nicotine dependence, cigarettes, uncomplicated; E66.01 Morbid (severe) obesity due to excess calories; Z79.899 Other long term (current) drug therapy; Z79.890 Hormone replacement therapy; Z79.82 Long term (current) use of aspirin; Z79.01 Long term (current) use of anticoagulants; Z85.118 Personal history of other malignant neoplasm of bronchus and lung; Z86.711 Personal history of pulmonary embolism; Z86.718 Personal history of other venous thrombosis and embolism; Z86.73 Personal history of transient ischemic attack (TIA), and cerebral infarction without residual deficits; Z92.3 Personal history of irradiation; Z87.01 Personal history of pneumonia (recurrent); Z82.3 Family history of stroke
CPT/HCPCS: 96361 ×2; 96360; 99285; 36415; 94640 ×3; 95816; 93005; 80186; 80053; 80185; 84484; 85025; 85610 ×2; 85730; 81001; 87635; 71046; 93880; 70496; 70450; 70498; 70553; G0378 ×3; C8929; S4990 ×3; A9585; Q9950; Q9967; 93306

== ENCOUNTER → 2021-01-03 | Day surgery (SDC) | payer MEDICARE, OTHER ==
[2021-01-02 10:19] VITALS: BMI 55.7
[~2021-01-03] MED LIST changes: -LACTATED RINGERS 1,000 ML IV SCH; +LIDOCAINE 1% INJ 10MG/ML (20 ML MDV) IV ONE
[2021-01-03 12:26] VITALS: BP 133/70; PULSE 88; RESP 16; TEMP 98.5
[2021-01-03 12:30] LABS: INR 2.6 (<1.2); Prothrombin Time 25.6 sec (9.0-12.0)
--- NOTE | 2021-01-03 16:56 | IR ---
EXAMINATION TYPE: IR cvc insert >=5 years DATE OF EXAM: 01/03/2021 COMPARISON: NONE CLINICAL HISTORY: Chemotherapy SOCIAL AND POLITICAL STUDIES PROFESSOR: Dr. Cheyenne Cobb PROCEDURE: The procedure was discussed with the patient. The risks, complications, benefits, and alternatives we re discussed and any questions were answered. Informed consent was obtained. The patient was placed supine. Maximal barrier technique utilized. After informed consent, the skin o verlying the right basilic vein was localized with ultrasound and noted to be compressible and patent . An ultrasound image was obtained and submitted on the patient's chart. Sterile technique utilized with the ultrasound machine. The skin overlying was prepped and draped and Lidocaine used for local a nesthesia. Access was gained to the vein under ultrasound guidance with a 21 gauge needle and a 0.018 inch wire was advanced. A skin yolie was made with a scalpel. Access site was dilated with Peel-Away sheath. 4 FR single lumen catheter tailored to the appropriate length of 41 cm and advanced such that the distal tip is at the cavoatrial junction. Spot image was obtained verifying PICC placement. Cath eter was fixed to the skin and a sterile dressing was placed following hemostasis. Catheter was aspir ated and flushed with saline. Patient was discharged from the radiology department in stable conditio n without immediate complication. Fluoro time: 1.4 minutes Fluoroscopic images obtained: 121 IMPRESSION: Status post ultrasound-guided and fluoroscopic-guided 4FR single lumen PICC placement, ready for use.
== END ==
LOC: CATHCVL 11:41
PROVIDERS: ATTEND Radiology Diagnostic Radiology
DX: C34.32 Malignant neoplasm of lower lobe, left bronchus or lung (principal); R56.9 Unspecified convulsions; J44.9 Chronic obstructive pulmonary disease, unspecified; I10 Essential (primary) hypertension; E66.3 Overweight; F32.9 Major depressive disorder, single episode, unspecified; Z86.73 Personal history of transient ischemic attack (TIA), and cerebral infarction without residual deficits; F17.210 Nicotine dependence, cigarettes, uncomplicated; Z79.899 Other long term (current) drug therapy; R06.81 Apnea, not elsewhere classified
CPT/HCPCS: 36573; 85610; C1751; C1769 ×2; J2001

== ENCOUNTER 2021-01-07 11:42 | Emergency (ER) | payer MEDICARE, OTHER ==
[2021-01-07 12:14] VITALS: TEMP 98.8
[2021-01-07] MEDS ORDERED: HYDROmorphone 1 MG/ML 1 ML SYRINGE IM STA (12:34)
--- NOTE | 2021-01-07 14:20 | XR ---
EXAMINATION TYPE: XR ankle complete RT DATE OF EXAM: 01/07/2021 CLINICAL HISTORY: Pain from injury TECHNIQUE: Frontal, lateral and oblique images of the right ankle are obtained. COMPARISON: None. FINDINGS: There is an avulsion fracture of the distal fibula. An additional bony fragment is seen adj acent to the medial malleolus, of uncertain etiology. Calcaneal spur is noted. There is extensive sof t tissue swelling about the ankle. Ankle joint effusion is present. IMPRESSION: There is an avulsion fracture of the distal fibula. An additional bony fragment is seen adjacent to t he medial malleolus, of uncertain etiology. Calcaneal spur is noted. There is extensive soft tissue s welling about the ankle. Ankle joint effusion is present.
--- NOTE | 2021-01-07 14:28 | ED ---
Lower Extremity Injury HPI - General Chief Complaint: Extremity Injury, Lower Stated Complaint: Ankle Injury Time Seen by Provider: 01/07/21 12:16 Source: patient, RN notes reviewed Mode of arrival: EMS Limitations: no limitations - History of Present Illness Initial Comments: Patient is a obese 55-year-old female that presents to emergency room complai ammon of right ankle pain. She notes that she was try to climb out of her truck which he backed out was unsure of where the ground was and fell twisting her ankle. Patient did appear to be in minimal discomfort and pain while sitting in her wheelchair during the exam and interview. She did have significant swelling to her right ankle. She denied any other issues or complaints at this time. She denied any chest pain short of breath headache nausea vomiting diarrhea constipation fever fatigue chills. She did have full sensation in her right lower extremity and foot. - Related Data Home Medications Medication Instructions Recorded Confirmed Citalopram Hydrobromide [CeleXA] 20 mg PO DAILY 11/16/18 01/03/21 Furosemide [Lasix] 40 mg PO DAILY 11/16/18 01/03/21 HYDROcodone/APAP 10-325MG [Marshall 1 tab PO DIRECTED PRN 11/16/18 01/03/21 10-325] Pantoprazole Sodium 20 mg PO HS 11/16/18 01/03/21 Tiotropium 18 Mcg/Puff [Spiriva] 2 puff INHALATION 1500 11/16/18 01/03/21 Warfarin [Coumadin] 5 mg PO SUMOTUTHFRSA 11/22/18 01/03/21 Albuterol Sulfate [Ventolin HFA] 1 - 2 puff INHALATION RT-Q6H PRN 11/14/20 01/03/21 Baclofen 10 mg PO BID 11/14/20 01/03/21 Cyanocobalamin (Vitamin B-12) 5,000 mcg PO DAILY 11/14/20 01/03/21 [Vitamin B-12] Levothyroxine Sodium [Synthroid] 25 mcg PO DAILY 11/14/20 01/03/21 Meclizine [Antivert] 25 mg PO TID PRN 11/14/20 01/03/21 Warfarin [Coumadin] 7.5 mg PO WE 11/14/20 01/03/21 Albuterol Nebulized [Ventolin 2.5 mg INHALATION TID PRN 01/02/21 01/03/21 Nebulized] Atorvastatin [Lipitor] 40 mg PO DAILY 01/02/21 01/03/21 Potassium Chloride 20 meq PO DAILY 01/02/21 01/03/21 lisinopriL [Zestril] 2.5 mg PO DAILY 01/02/21 01/03/21 Previous Rx's Medication Instructions Recorded Aspirin 325 mg PO DAILY tab 11/19/18 Montelukast [Singulair] 10 mg PO HS #30 tab 11/19/18 levETIRAcetam [Keppra] 750 mg PO Q12HR #60 tab 11/16/20 Allergies Allergy/AdvReac Type Severity Reaction Status Date / Time Penicillins Allergy Rash/Hives, Verified 01/07/21 12:15 "hard to heal" Sulfa (Sulfonamide Allergy Rash/Hives,"hard Verified 01/07/21 12:15 Antibiotics) to heal" wool Allergy Rash/Hives, Verified 01/07/21 12:15 itching ivory soap Allergy Rash/Hives, Uncoded 01/07/21 12:15 itching Review of Systems ROS Statement: Those systems with pertinent positive or pertinent negative responses have been documented in the HPI. ROS Other: All systems not noted in ROS Statement are negative. Past Medical History Past Medical History: Blood Disorder, Cancer, COPD, CVA/TIA, Deep Vein Thrombosis (DVT), GERD/Reflux, Pneumonia, Pulmonary Embolus (PE), Seizure Disorder, Sleep Apnea/CPAP/BIPAP, Thyroid Disorder Additional Past Medical History / Comment(s): TIA-no residual effects, blood clot left leg and PE left lung, last seizure 2-3 years ago, bronchitis, kidney stones, protein S and C deficiency, bilateral ankle edema, past hx falls, weakness in rt legs, dizzy, recent dx cancer left lung-getting radiation History of Any Multi-Drug Resistant Organisms: None Reported Past Surgical History: Tubal Ligation, Uterine Ablation Additional Past Surgical History / Comment(s): D&C, bronchoscopy with L lung biopsy x 2 Past Anesthesia/Blood Transfusion Reactions: No Reported Reaction Past Psychological History: Depression Smoking Status: Current every day smoker Past Alcohol Use History: None Reported Past Drug Use History: None Reported - Past Family History Mother Family Medical History: No Reported History Additional Family Medical History / Comment(s): Mother of a CVA at the age of 71 yrs. Brother(s) Family Medical History: No Reported History Additional Family Medical History / Comment(s): Patient has no children. General Exam Limitations: no limitations General appearance: alert, in no apparent distress, obese (Morbidly) Head exam: Present: atraumatic, normocephalic, normal inspection Eye exam: Present: normal appearance, PERRL, EOMI. Absent: scleral icterus, conjunctival injection, periorbital swelling Neck exam: Present: normal inspection Respiratory exam: Present: normal lung sounds bilaterally. Absent: respiratory distress, wheezes, rales, rhonchi, stridor Cardiovascular Exam: Present: regular rate, normal rhythm, normal heart sounds. Absent: systolic murmur, diastolic murmur, rubs, gallop, clicks Right Ankle exam: Present: tenderness (Lateral aspect), swelling, deformity. Absent: normal inspection, full ROM (Secondary to pain), abrasion, laceration, ecchymosis Neurological exam: Present: alert, oriented X3 Psychiatric exam: Present: normal affect, normal mood Skin exam: Present: warm, dry, intact, normal color. Absent: rash Course Vital Signs 01/07/21 12:13 Temperature 98.8 F Pulse Rate 87 Respiratory 22 Rate Blood Pressure 113/64 O2 Sat by Pulse 97 Oximetry Procedures - Orthopedic Splinting/Casting Injury #1 Side: right Lower Extremity Injury Location: ankle Lower Extremity Immobilizer: stirrup splint, Gustavo wrap, synthetic pre-padded splint Medical Decision Making - Medical Decision Making 55-year-old female complaining of right ankle pain after falling out of her truck. X-ray right ankle, 4 mg of morphine ordered. X-ray shows a distal fibular avulsion fracture. Patient will be splinted and referred to orthopedics. Case discussed with Dr. Galindo, patient can discharge. - Radiology Data Radiology results: report reviewed, image reviewed X-ray of the right ankle: There is an avulsion fracture of the distal fibula. An additional bony fragment seen adjacent to the medial malleolus of uncertain etiology. Calcaneal spur noted. There is extensive soft tissue swelling about the ankle. Ankle joint effusion is present. Disposition Clinical Impression: Fracture of distal end of right fibula Disposition: HOME SELF-CARE Condition: Stable Instructions (If sedation given, give patient instructions): Ankle Fracture (ED) Additional Instructions: Please return to the Emergency Department if symptoms worsen or any other concerns. Follow-up with orthopedics in the next 1-2 days. Leave splint on throughout the day and night. Can cover splint with back to bathe. Take Tylenol and Motrin as needed for pain. Is patient prescribed a controlled substance at d/c from ED?: No Referrals: Lise Urias MD [Primary Care Provider] - 1-2 days Time of Disposition: 15:00
[2021-01-07 15:12] VITALS: BP 106/70; PULSE 68; RESP 18
== END 2021-01-07 15:29 | disposition home or self-care (01) ==
LOC: EC 11:42
DX: S82.831A Other fracture of upper and lower end of right fibula, initial encounter for closed fracture (principal); E66.01 Morbid (severe) obesity due to excess calories; J44.9 Chronic obstructive pulmonary disease, unspecified; G40.909 Epilepsy, unspecified, not intractable, without status epilepticus; K21.9 Gastro-esophageal reflux disease without esophagitis; F32.9 Major depressive disorder, single episode, unspecified; F17.200 Nicotine dependence, unspecified, uncomplicated; Z79.01 Long term (current) use of anticoagulants; Z79.51 Long term (current) use of inhaled steroids; Z79.82 Long term (current) use of aspirin; Z79.891 Long term (current) use of opiate analgesic; Z79.890 Hormone replacement therapy; Z79.899 Other long term (current) drug therapy; Z88.0 Allergy status to penicillin; Z88.2 Allergy status to sulfonamides; Z68.43 Body mass index [BMI] 50.0-59.9, adult; W17.89XA Other fall from one level to another, initial encounter; X50.1XXA Overexertion from prolonged static or awkward postures, initial encounter
CPT/HCPCS: 73610; 29515; 96372; 99283; J1170

== ENCOUNTER 2021-10-06 11:58 | Inpatient (IN) | payer MEDICARE, OTHER ==
[2021-10-06] MEDS ORDERED: IPRATROPIUM-ALBUTEROL 3 ML NEB INHALATION STA (12:23)
[2021-10-06 12:43] LABS: Basophils % (A) 0 %; Eosinophils # (A) 0.1 k/uL (0-0.7); Eosinophils % (A) 1 %; HCT 34.3 % (34.0-46.0); HGB 11.2 gm/dL (11.4-16.0); Lymphocytes # (A) 0.7 k/uL (1.0-4.8); Lymphocytes % (A) 6 %; MCH 28.8 pg (25.0-35.0); MCHC 32.8 g/dL (31.0-37.0); MCV 87.9 fL (80.0-100.0); Mean Platelet Volume 8.3; Monocytes # (A) 0.7 k/uL (0-1.0); Monocytes % (A) 5 %; Neutrophils # (A) 11.2 k/uL (1.3-7.7); Neutrophils % (A) 86 %; Platelet Count 111 k/uL (150-450); RDW 14.4 % (11.5-15.5)
[2021-10-06 12:50] LABS: INR 1.4 (<1.2); Prothrombin Time 14.7 sec (9.0-12.0)
--- NOTE | 2021-10-06 12:57 | XR ---
EXAMINATION TYPE: XR chest 2V DATE OF EXAM: 10/06/2021 COMPARISON: 11/14/2020 HISTORY: Shortness of breath TECHNIQUE: Frontal and lateral views of the chest are obtained. FINDINGS: Scattered senescent parenchymal changes noted. Hyperinflation compatible with COPD. Diffuse hazy density throughout the left lung. Nodular density right infrahilar region. Fluid along t he right minor fissure. Heart size is stable. Mediastinal structures are stable and grossly unremarkable. No evidence for hilar prominence. Degenerative changes dorsal spine. IMPRESSION: 1. Diffuse hazy density throughout the left lung. Nodular density right infrahilar region. Fluid joellen g the right minor fissure.
[2021-10-06 13:11] LABS: Partial Thromboplastin Time 84.8 sec (22.0-30.0)
[2021-10-06 13:14] LABS: Albumin 3.1 g/dL (3.5-5.0); Potassium 4.8 mmol/L (3.5-5.1); Total Protein 6.8 g/dL (6.3-8.2)
[2021-10-06 13:16] LABS: Calcium 8.4 mg/dL (8.4-10.2); Magnesium 1.7 mg/dL (1.6-2.3); Total Bilirubin 0.8 mg/dL (0.2-1.3)
--- NOTE | 2021-10-06 13:19 | ED ---
General Adult HPI - General Chief complaint: Shortness of Breath Stated complaint: abn labs, SOB Time Seen by Provider: 10/06/21 12:14 Source: patient, RN notes reviewed Mode of arrival: wheelchair Limitations: no limitations - History of Present Illness Initial comments: This is a 55-year-old female presents emergency Department chief complaint of shortness breath. Patient was sent over from oncologist office for evaluation. Patient states she's been having increasing breast left day or so. Patient states she was told she had fluid on her lung. Patient's had no prior thoracentesis. Denies any chest pain states that she's had subjective fevers and chills and cough. - Related Data Home Medications Medication Instructions Recorded Confirmed Citalopram Hydrobromide [CeleXA] 20 mg PO DAILY 11/16/18 01/03/21 Furosemide [Lasix] 40 mg PO DAILY 11/16/18 01/03/21 HYDROcodone/APAP 10-325MG [[place] 1 tab PO DIRECTED PRN 11/16/18 01/03/21 10-325] Pantoprazole Sodium 20 mg PO HS 11/16/18 01/03/21 Tiotropium 18 Mcg/Puff [Spiriva] 2 puff INHALATION 1500 11/16/18 01/03/21 Warfarin [Coumadin] 5 mg PO SUMOTUTHFRSA 11/22/18 01/03/21 Albuterol Sulfate [Ventolin HFA] 1 - 2 puff INHALATION RT-Q6H PRN 11/14/20 01/03/21 Baclofen 10 mg PO BID 11/14/20 01/03/21 Cyanocobalamin (Vitamin B-12) 5,000 mcg PO DAILY 11/14/20 01/03/21 [Vitamin B-12] Levothyroxine Sodium [Synthroid] 25 mcg PO DAILY 11/14/20 01/03/21 Meclizine [Antivert] 25 mg PO TID PRN 11/14/20 01/03/21 Warfarin [Coumadin] 7.5 mg PO WE 11/14/20 01/03/21 Albuterol Nebulized [Ventolin 2.5 mg INHALATION TID PRN 01/02/21 01/03/21 Nebulized] Atorvastatin [Lipitor] 40 mg PO DAILY 01/02/21 01/03/21 Potassium Chloride [Potassium 20 meq PO DAILY 01/02/21 01/03/21 Chloride ER] lisinopriL [Zestril] 2.5 mg PO DAILY 01/02/21 01/03/21 Previous Rx's Medication Instructions Recorded Aspirin 325 mg PO DAILY tab 11/19/18 Montelukast [Singulair] 10 mg PO HS #30 tab 11/19/18 levETIRAcetam [Keppra] 750 mg PO Q12HR #60 tab 11/16/20 Allergies Allergy/AdvReac Type Severity Reaction Status Date / Time doxycycline Allergy Rash/Hives Verified 10/06/21 12:03 Penicillins Allergy Rash/Hives, Verified 10/06/21 12:03 "hard to heal" Sulfa (Sulfonamide Allergy Rash/Hives,"hard Verified 10/06/21 12:03 Antibiotics) to heal" wool Allergy Rash/Hives, Verified 10/06/21 12:03 itching ivory soap Allergy Rash/Hives, Uncoded 10/06/21 12:03 itching Review of Systems ROS Statement: Those systems with pertinent positive or pertinent negative responses have been documented in the HPI. ROS Other: All systems not noted in ROS Statement are negative. Past Medical History Past Medical History: Blood Disorder, Cancer, COPD, CVA/TIA, Deep Vein Thrombosis (DVT), GERD/Reflux, Pneumonia, Pulmonary Embolus (PE), Seizure Disorder, Sleep Apnea/CPAP/BIPAP, Thyroid Disorder Additional Past Medical History / Comment(s): TIA-no residual effects, blood clot left leg and PE left lung, last seizure 2-3 years ago, bronchitis, kidney stones, protein S and C deficiency, bilateral ankle edema, past hx falls, weakness in rt legs, dizzy, recent dx cancer left lung-getting radiation History of Any Multi-Drug Resistant Organisms: None Reported Past Surgical History: Tubal Ligation, Uterine Ablation Additional Past Surgical History / Comment(s): D&C, bronchoscopy with L lung biopsy x 2 Past Anesthesia/Blood Transfusion Reactions: No Reported Reaction Past Psychological History: Depression Smoking Status: Current every day smoker Past Alcohol Use History: None Reported Past Drug Use History: None Reported - Past Family History Mother Family Medical History: No Reported History Additional Family Medical History / Comment(s): Mother of a CVA at the age of 71 yrs. Brother(s) Family Medical History: No Reported History Additional Family Medical History / Comment(s): Patient has no children. General Exam Limitations: no limitations General appearance: alert, in no apparent distress Head exam: Present: atraumatic, normocephalic, normal inspection Eye exam: Present: normal appearance, PERRL, EOMI. Absent: scleral icterus, conjunctival injection, periorbital swelling ENT exam: Present: normal exam, normal oropharynx, mucous membranes moist Neck exam: Present: normal inspection, full ROM. Absent: tenderness, meningismus, lymphadenopathy Respiratory exam: Present: respiratory distress, rales, rhonchi. Absent: normal lung sounds bilaterally, wheezes, stridor Cardiovascular Exam: Present: normal rhythm, tachycardia, normal heart sounds. Absent: systolic murmur, diastolic murmur, rubs, gallop, clicks GI/Abdominal exam: Present: soft, normal bowel sounds. Absent: distended, tenderness, guarding, rebound, rigid Course Vital Signs 10/06/21 10/06/21 10/06/21 12:00 13:04 13:19 Temperature 98.1 F Pulse Rate 118 H 115 H 122 H Respiratory 25 H Rate Blood Pressure 135/82 O2 Sat by Pulse 94 L Oximetry Procedures - [place] Protocol (Time Out) Nurse: Zari Brewer Medical Decision Making - Medical Decision Making 55-year-old female presented for dyspnea. Patient has he states is a lifelong is unclear if this is fluid versus infectious. Patient will be admitted for IV antibiotics, pulmonary and oncology evaluation. She does have underlying left lung pneumonia. Patient may require bronchoscopy. I did discuss the case with some physician Dr. Zuniga accepts admission. - Lab Data Result diagrams: 10/06/21 12:30 10/06/21 12:30 Lab Results 10/06/21 10/06/21 10/06/21 Range/Units 12:30 12:30 12:30 WBC 13.0 H (3.8-10.6) k/uL RBC 3.90 (3.80-5.40) m/uL Hgb 11.2 L (11.4-16.0) gm/dL Hct 34.3 (34.0-46.0) % MCV 87.9 (80.0-100.0) fL MCH 28.8 (25.0-35.0) pg MCHC 32.8 (31.0-37.0) g/dL RDW 14.4 (11.5-15.5) % Plt Count 111 L (150-450) k/uL MPV 8.3 Neutrophils % 86 % Lymphocytes % 6 % Monocytes % 5 % Eosinophils % 1 % Basophils % 0 % Neutrophils # 11.2 H (1.3-7.7) k/uL Lymphocytes # 0.7 L (1.0-4.8) k/uL Monocytes # 0.7 (0-1.0) k/uL Eosinophils # 0.1 (0-0.7) k/uL Basophils # 0.0 (0-0.2) k/uL PT 14.7 H (9.0-12.0) sec INR 1.4 H (<1.2) APTT 84.8 H (22.0-30.0) sec Sodium 133 L (137-145) mmol/L Potassium 4.8 (3.5-5.1) mmol/L Chloride 108 H (98-107) mmol/L Carbon Dioxide 17 L (22-30) mmol/L Anion Gap 8 mmol/L BUN 36 H (7-17) mg/dL Creatinine 1.93 H (0.52-1.04) mg/dL Est GFR (CKD-EPI)AfAm 33 (>60 ml/min/1.73 sqM) Est GFR (CKD-EPI)NonAf 29 (>60 ml/min/1.73 sqM) Glucose 126 H (74-99) mg/dL Plasma Lactic Acid Leo (0.7-2.0) mmol/L Calcium 8.4 (8.4-10.2) mg/dL Magnesium 1.7 (1.6-2.3) mg/dL Total Bilirubin 0.8 (0.2-1.3) mg/dL AST 23 (14-36) U/L ALT 24 (4-34) U/L Alkaline Phosphatase 71 (38-126) U/L Troponin I (0.000-0.034) ng/mL NT-Pro-B Natriuret Pep pg/mL Total Protein 6.8 (6.3-8.2) g/dL Albumin 3.1 L (3.5-5.0) g/dL 10/06/21 10/06/21 10/06/21 Range/Units 12:30 12:30 12:30 WBC (3.8-10.6) k/uL RBC (3.80-5.40) m/uL Hgb (11.4-16.0) gm/dL Hct (34.0-46.0) % MCV (80.0-100.0) fL MCH (25.0-35.0) pg MCHC (31.0-37.0) g/dL RDW (11.5-15.5) % Plt Count (150-450) k/uL MPV Neutrophils % % Lymphocytes % % Monocytes % % Eosinophils % % Basophils % % Neutrophils # (1.3-7.7) k/uL Lymphocytes # (1.0-4.8) k/uL Monocytes # (0-1.0) k/uL Eosinophils # (0-0.7) k/uL Basophils # (0-0.2) k/uL PT (9.0-12.0) sec INR (<1.2) APTT (22.0-30.0) sec Sodium (137-145) mmol/L Potassium (3.5-5.1) mmol/L Chloride (98-107) mmol/L Carbon Dioxide (22-30) mmol/L Anion Gap mmol/L BUN (7-17) mg/dL Creatinine (0.52-1.04) mg/dL Est GFR (CKD-EPI)AfAm (>60 ml/min/1.73 sqM) Est GFR (CKD-EPI)NonAf (>60 ml/min/1.73 sqM) Glucose (74-99) mg/dL Plasma Lactic Acid Leo 1.3 (0.7-2.0) mmol/L Calcium (8.4-10.2) mg/dL Magnesium (1.6-2.3) mg/dL Total Bilirubin (0.2-1.3) mg/dL AST (14-36) U/L ALT (4-34) U/L Alkaline Phosphatase (38-126) U/L Troponin I 0.020 (0.000-0.034) ng/mL NT-Pro-B Natriuret Pep 3440 pg/mL Total Protein (6.3-8.2) g/dL Albumin (3.5-5.0) g/dL Disposition Clinical Impression: Pneumonia, Lung cancer, Acute respiratory distress Disposition: ADMITTED IP TO THIS HOSP Condition: Serious Referrals: Lise Urias MD [Primary Care Provider] - 1-2 days
[2021-10-06] MEDS ORDERED: AZITHROMYCIN 500 MG in SODIUM CHLORIDE 0.9% 250 ML IVPB STA (13:32)
[2021-10-06] MEDS ORDERED: ACETAMINOPHEN TAB 325 MG TAB PO PRN (13:34)
[2021-10-06] MEDS ORDERED: NALOXONE 0.4 MG/ML 1 ML VIAL IV PRN (13:34)
[2021-10-06] MEDS ORDERED: MORPHINE SULFATE 4 MG/ML SYRINGE IVP PRN (14:49)
[2021-10-06] MEDS ORDERED: SODIUM CHLORIDE 0.9% 1,000 ML IV ONE (14:49)
[2021-10-06] MEDS ORDERED: ALBUTEROL NEBULIZED 2.5 MG/3 ML INHALATION PRN (15:55)
[2021-10-06] MEDS ORDERED: LORazepam 2 MG/ML INJ IV PRN (15:58)
[2021-10-06] MEDS ORDERED: ONDANSETRON 4 MG/2 ML VIAL IVP PRN (15:58)
[2021-10-06] MEDS ORDERED: methylPREDNISolone SOD SUCCI 125 MG/2 ML VIAL IV STA (15:58)
[2021-10-06] MEDS ORDERED: MELATONIN 3 MG TABLET PO PRN (15:58)
[2021-10-06] MEDS ORDERED: METOPROLOL TARTRATE 5 MG/5 ML VIAL IVP STA ×2 (16:01→16:33)
--- NOTE | 2021-10-06 16:15 | P.HPIM ---
History of Present Illness H&P Date: 10/06/21 Chief Complaint: shortness of breath Patient is a 55 yo CF patient of Dr. 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 In the ED she underwent an extensive evaluation. On arrival her pulse was 118 and respirations are up at 25. Laboratory analysis showed WBC 13, PT 14.7, INR 1.4 and ptt 84.8, sodium 133, bun 36, and cr 1.93. She was started on antibiotics. Her CXR demonstrated complete haziness of the left hemithorax. Her HR then increased and she was given a 1L bolus and pain medications. Patient seen and examined at bedside. She reports that she went to the [facility] on Wednesday. By Wednesday she started having significant shortness breath. She reports that she's had fevers up to 102.7 at home. It is worse with movement and better with rest, however it is also exacerbated by lying flat. She has a dry nonproductive cough. She reports she got her cold, flu, and pneumonia shot. She is having a hard time eating because she is so winded. She is feeling very tired and overall weak. She reports she has been taking all medications as prescribed and has not missed any doses of her Lovenox. 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 Pertinent positives and negatives as discussed in HPI, a complete review of systems was performed and all other systems are negative. General: non toxic, no distress, appears at stated age Derm: warm, dry Head: atraumatic, normocephalic, symmetric Eyes: EOMI, no lid lag, anicteric sclera, pupils equal round reactive to light ENT: Nose and ears atraumatic, no thrush, no pharyngeal erythema Neck: No thyromegaly, no cervical lymphadenopathy, trachea midline, supple Mouth: no lip lesion, mucus membranes moist Cardiovascular: S1S2 reg, no murmur, positive posterior tibial pulse bilateral, no edema, capillary refill less than 2 seconds Lungs: clear to ascultation bilateral, no ronchi, no rales, no wheeze, no accessory muscle use Abdominal: soft, nontender to palpation, no guarding, no appreciable organomegaly, normal bowel sounds Ext: no gross muscle atrophy, muscle strength muscle strength 5 out of 5 in all 4 extremities, no contractures Neuro: CN II-XI grossly intact, light touch intact all 4 extremities, finger to nose within normal limits, Psych: Alert, oriented, appropriate affect Assessment/plan: Left-sided pneumonia with sepsis Non-small cell lung cancer Acute exacerbation of COPD Acute hypoxic respiratory failure -Despite her sepsis will limit fluid resuscitation and she appears to have fluid overload on chest x-ray including fluid within the right major fissure -Continue with Rocephin and Zithromax -Pulmonary consultation -Sputum culture -Check Legionella -Check flu and RSV -Check pro calcitonin -Consult oncology -Solu-Medrol 1251 now then 60 daily 8 -Patient is typically on Symbicort, Spiriva, and albuterol these will be substituted formoterol, budesonide, and DuoNeb. Atrial flutter, newly discovered -Patient is already on full dose Lovenox once daily injections and this will be continued -Metoprolol 5 mg IV push 2 did not work so started on cardizem gtt. -Telemetry -Cardiology consults -Echocardiogram in a.m. PIERCE vs CKD - Avoid nephrotoxic agents - follow Cr - check renal US in AM Anemia and thrombocytopenia, appears better than baseline -Outpatient follow-up -Follow CBC Hyponatremia -Possibly secondary to poor solute intake versus fluid overload -Repeat in a.m. Hx of venous thromboembolism, with protein C and protein S deficiency -Continue with Lovenox Chronic: GERD Seizure BLANCA TIA The patient is admitted with an anticipated greater than 2 midnight stay for evaluation of pneumonia with sepsis and D flutter with RBR. Surrogate decision-maker: CODE STATUS:Full DVT prophylaxis: Lovenox Discussed with: Patient, nursing, ED provider Anticipated discharge date: 5-[address]: home A total of 75 minutes was spent on the care of this complex patient more than 50% of the time was spent in counseling and care coordination. Past Medical History Past Medical History: Blood Disorder, Cancer, COPD, CVA/TIA, Deep Vein Thrombosis (DVT), GERD/Reflux, Pneumonia, Pulmonary Embolus (PE), Seizure Disorder, Sleep Apnea/CPAP/BIPAP, Thyroid Disorder Additional Past Medical History / Comment(s): L lung cancer with radiation/chemo and pt completed 01/2021, TIA-no residual effects, blood clot left leg and PE left lung, BLANCA with Cpap, last seizure 6-7 years ago, bronchitis, protein S and C deficiency, bilateral ankle/pedal edema, past hx falls, DDD, chronic back and bilateral foot pain, weakness in rt legs thought d/t pinched nerve in back, dulce maria tigo. History of Any Multi-Drug Resistant Organisms: None Reported Past Surgical History: Tubal Ligation, Uterine Ablation Additional Past Surgical History / Comment(s): D&C, bronchoscopy with L lung biopsy x 2 Past Anesthesia/Blood Transfusion Reactions: No Reported Reaction Smoking Status: Current every day smoker - Past Family History Mother Family Medical History: CVA/TIA Additional Family Medical History / Comment(s): Mother of a CVA at the age of 71 yrs. Brother(s) Family Medical History: No Reported History Additional Family Medical History / Comment(s): Patient has no children. Father Additional Family Medical History / Comment(s): Father was an alcoholic and drug addict. Medications and Allergies Home Medications Medication Instructions Recorded Confirmed Type Citalopram Hydrobromide [CeleXA] 20 mg PO W/BRKFST 11/16/18 10/06/21 History Furosemide [Lasix] 40 mg PO Q48H 11/16/18 10/06/21 History HYDROcodone/APAP 10-325MG [[place] 1 tab PO TID PRN 11/16/18 10/06/21 History 10-325] Pantoprazole Sodium 20 mg PO HS 11/16/18 10/06/21 History Tiotropium 18 Mcg/Puff [Spiriva] 1 cap INHALATION RT-HS 11/16/18 10/06/21 Histor y Albuterol Sulfate [Ventolin HFA] 1 - 2 puff INHALATION RT-Q6H PRN 11/14/20 10/06/21 History Levothyroxine Sodium [Synthroid] 25 mcg PO AC-BRKFST 11/14/20 10/06/21 History Albuterol Nebulized [Ventolin 2.5 mg INHALATION RT-TID PRN 01/02/21 10/06/21 History Nebulized] Atorvastatin [Lipitor] 40 mg PO W/BRKFST 01/02/21 10/06/21 History Potassium Chloride [Potassium 10 meq PO BID-W/MEALS@08,12 01/02/21 10/06/21 History Chloride ER] Aspirin 325 mg PO HS 10/06/21 10/06/21 History Baclofen [Lioresal] 20 mg PO BID 10/06/21 10/06/21 History Budesonide/Formoterol Fumarate 2 puff INHALATION RT-DAILY 10/06/21 10/06/21 History [Symbicort 160-4.5 Mcg Inhaler] Enoxaparin [Lovenox] 200 mg SQ DAILY 10/06/21 10/06/21 History Ergocalciferol [Vitamin D2 (1250 1,250 mcg PO TU 10/06/21 10/06/21 History Mcg = 94430 Iu)] Furosemide [Lasix] 80 mg PO Q48H 10/06/21 10/06/21 History Gabapentin 300 mg PO HS 10/06/21 10/06/21 History Hydroxychloroquine Sulfate 200 mg PO BID 10/06/21 10/06/21 History [Plaquenil] Montelukast [Singulair] 10 mg PO DAILY@1200 10/06/21 10/06/21 History Vitamin B Complex 1 cap PO W/BRKFST 10/06/21 10/06/21 History levETIRAcetam [Keppra] 750 mg PO BID 10/06/21 10/06/21 History Allergies Allergy/AdvReac Type Severity Reaction Status Date / Time doxycycline Allergy Rash/Hives Verified 10/06/21 14:48 Penicillins Allergy Rash/Hives, Verified 10/06/21 14:48 "hard to heal" Sulfa (Sulfonamide Allergy Rash/Hives,"hard Verified 10/06/21 14:48 Antibiotics) to heal" wool Allergy Rash/Hives, Verified 10/06/21 14:48 itching ivory soap Allergy Rash/Hives, Uncoded 10/06/21 14:48 itching Physical Exam Osteopathic Statement: *. No significant issues noted on an osteopathic structural exam other than those noted in the History and Physical/Consult. Vitals: Vital Signs Temp Pulse Resp BP Pulse Ox 10/06/21 14:59 151 H 24 106/60 97 10/06/21 14:19 158 H 38 H 108/56 99 10/06/21 13:19 122 H 10/06/21 13:04 115 H 10/06/21 12:00 98.1 F 118 H 25 H 135/82 94 L Intake and Output 10/06/21 10/06/21 10/06/21 06:59 14:59 22:59 Other: Weight 134.263 kg Results CBC & Chem 7: 10/06/21 12:30 10/06/21 12:30 Labs: Abnormal Lab Results - Last 24 Hours (Table) 10/06/21 10/06/21 10/06/21 Range/Units 12:30 12:30 12:30 WBC 13.0 H (3.8-10.6) k/uL Hgb 11.2 L (11.4-16.0) gm/dL Plt Count 111 L (150-450) k/uL Neutrophils # 11.2 H (1.3-7.7) k/uL Lymphocytes # 0.7 L (1.0-4.8) k/uL PT 14.7 H (9.0-12.0) sec INR 1.4 H (<1.2) APTT 84.8 H (22.0-30.0) sec Sodium 133 L (137-145) mmol/L Chloride 108 H (98-107) mmol/L Carbon Dioxide 17 L (22-30) mmol/L BUN 36 H (7-17) mg/dL Creatinine 1.93 H (0.52-1.04) mg/dL Glucose 126 H (74-99) mg/dL Albumin 3.1 L (3.5-5.0) g/dL Thrombosis Risk Factor Assmnt - Choose All That Apply Any of the Below Risk Factors Present?: Yes Each Factor Represents 1 point: Abnormal pulmonary function (COPD), Age 41-60 years, Obesity (BMI >25), Serious lung disease incl. pneumonia (< 1month) Other Risk Factors: Yes Each Risk Factor Represents 2 Points: Malignancy Each Risk Factor Represents 3 Points: History of DVT/PE Other congenital or acquired thrombophilia - If yes, enter type in comment: No Thrombosis Risk Factor Assessment Total Risk Factor Score: 9 Thrombosis Risk Factor Assessment Level: High Risk
[2021-10-06 16:38] LABS: ABG Base Excess -8.8 mmol/L; ABG HCO3 17 mmol/L (21-25); ABG Oxygen Saturation 97.4 % (94-97); ABG PCO2 29 mmHg (35-45); ABG PH 7.36 (7.35-7.45); ABG PO2 94 mmHg (83-108); ABG TCO2 17 mmol/L (19-24); Allen Test Performed? Yes
[2021-10-06] MEDS: methylPREDNISolone SOD SUCCI 125 MG/2 ML VIAL IV SCH (16:49)
[2021-10-06] MEDS: MONTELUKAST 10 MG TAB PO SCH (17:02)
[2021-10-06] MEDS ORDERED: DILTIAZEM DRIP BOLUS FROM BAG 1 MG SOLN IV ONE (17:11)
[2021-10-06] MEDS ORDERED: DILTIAZEM 125 MG in SODIUM CHLORIDE 0.9% 100 ML IV SCH (17:15)
[2021-10-06] MEDS: IPRATROPIUM-ALBUTEROL 3 ML NEB INHALATION SCH ×2 (17:27→20:32)
[2021-10-06] MEDS: ENOXAPARIN 100 MG/ML SYRINGE SQ SCH (18:57)
[2021-10-06 19:09] LABS: Glucose,Whole Blood 142 mg/dL (75-99)
[2021-10-06] MEDS: ASPIRIN 325 MG TAB PO SCH (19:52)
[2021-10-06] MEDS: BACLOFEN 10 MG TAB PO SCH (19:52)
[2021-10-06] MEDS: PANTOPRAZOLE SODIUM 40 MG GRANULE PKT PO SCH (19:52)
[2021-10-06] MEDS: HYDROcodone/APAP 10-325MG 1 EACH TAB PO PRN (19:52)
[2021-10-06] MEDS: GABAPENTIN 300 MG CAP PO SCH (19:53)
[2021-10-06] MEDS: BUDESONIDE 1 MG/2 ML NEBU INHALATION SCH (20:32)
[2021-10-06] MEDS: FORMOTEROL FUMARATE 20 MCG/2 ML NEBU INHALATION SCH (20:32)
[2021-10-07] MEDS: methylPREDNISolone SOD SUCCI 125 MG/2 ML VIAL IV SCH ×4 (01:27→23:26)
[2021-10-07 05:43] LABS: Glucose,Whole Blood 160 mg/dL (75-99)
[2021-10-07] MEDS: LEVOTHYROXINE 25 MCG TAB PO SCH (06:32)
[2021-10-07] MEDS: ATORVASTATIN 40 MG TAB PO SCH (06:32)
[2021-10-07] MEDS: CITALOPRAM HYDROBROMIDE 20 MG TAB PO SCH (06:32)
[2021-10-07 07:20] LABS: HCT 29.9 % (34.0-46.0); Hypochromasia Slight; MCH 28.4 pg (25.0-35.0); MCHC 31.3 g/dL (31.0-37.0); MCV 90.8 fL (80.0-100.0); Mean Platelet Volume 8.7; RDW 14.4 % (11.5-15.5); WBC 8.8 k/uL (3.8-10.6)
[2021-10-07 07:31] LABS: HGB 9.4 gm/dL (11.4-16.0)
[2021-10-07 07:47] LABS: Albumin 2.8 g/dL (3.5-5.0); Calcium 7.7 mg/dL (8.4-10.2); Magnesium 1.9 mg/dL (1.6-2.3); Phosphorus 3.6 mg/dL (2.5-4.5); Potassium 4.8 mmol/L (3.5-5.1); Total Bilirubin 0.4 mg/dL (0.2-1.3); Total Protein 6.3 g/dL (6.3-8.2)
[2021-10-07 08:12] LABS: Platelet Count 92 k/uL (150-450)
--- NOTE | 2021-10-07 08:23 | US ---
EXAMINATION TYPE: US kidneys/renal and bladder DATE OF EXAM: 10/07/2021 COMPARISON: US & CT CLINICAL HISTORY: PIERCE. Abnormal renal labs EXAM MEASUREMENTS: Right Kidney: 10.0 x 4.8 x 4.2 cm Left Kidney: 10.4 x 5.3 x 4.1 cm Severely, morbidly obese pt- very difficult to image Right Kidney: No evidence of hydro, lower pole gassed out Left Kidney: No evidence of hydro, difficult to visualize due to pt's large size Bladder: wnl Bilateral Jets seen: No Incidental finding, enlarged spleen Enlarged spleen measuring 14.4 cm. Technically difficult ultrasound due to the patient's body habitus . With this limitation, grossly unremarkable kidneys with no evidence of hydronephrosis or gross pacheco l lesion. Subtle renal abnormality cannot be excluded by this ultrasound. The urinary bladder is not completely distended, grossly unremarkable. IMPRESSION: Suboptimal ultrasound as described above. With this limitation, no significant renal or urinary bladd er abnormality identified. Enlarged spleen.
[2021-10-07] MEDS: BACLOFEN 10 MG TAB PO SCH ×2 (08:35→20:42)
[2021-10-07] MEDS: ENOXAPARIN 100 MG/ML SYRINGE SQ SCH (08:36)
[2021-10-07] MEDS: IPRATROPIUM-ALBUTEROL 3 ML NEB INHALATION SCH ×4 (08:46→20:56)
[2021-10-07] MEDS: FORMOTEROL FUMARATE 20 MCG/2 ML NEBU INHALATION SCH ×2 (08:46→20:56)
[2021-10-07] MEDS: BUDESONIDE 1 MG/2 ML NEBU INHALATION SCH ×2 (08:46→20:56)
--- NOTE | 2021-10-07 08:58 | XR ---
EXAMINATION TYPE: XR chest 1V portable DATE OF EXAM: 10/07/2021 COMPARISON: 10/06/2021 INDICATION: Pneumonia TECHNIQUE: Single frontal view of the chest is obtained. FINDINGS: The heart size is prominent. The pulmonary vasculature is normal. Diffuse opacities through the left lung. Correlate for pneumonia. Findings are improved IMPRESSION: 1. Appropriate opacification of the left lung field. Correlate for pneumonia. Continued follow-up is recommended.
[2021-10-07] MEDS: AZITHROMYCIN 500 MG in SODIUM CHLORIDE 0.9% 250 ML IVPB SCH (10:05)
--- NOTE | 2021-10-07 10:42 | US ---
EXAMINATION TYPE: US chest DATE OF EXAM: 10/07/2021 COMPARISON: NONE CLINICAL HISTORY: left lung opacification, shortness of breath. COPD Lung CA TECHNIQUE: Targeted ultrasound of the posterior lower bilateral hemithoraces EXAM MEASUREMENTS: Left Pleural Effusion pocket size: 1.8 cm Left skin surface to fluid distance: 2.9 cm Pulmonologists are able to review the images in the patient?s EMR. IMPRESSIONS: Bilateral pleural effusions.
--- NOTE | 2021-10-07 10:49 | P.CNPUL ---
History of Present Illness Consult date: 10/07/21 Requesting physician: Janice Roche Reason for consult: dyspnea, abnormal CXR/CT Chief complaint: Shortness of breath History of present illness: This a very pleasant 55-year-old female patient with a known history of lung cancer/adenocarcinoma diagnosed in 2017. She had initially had radiation and then subsequently had chemo/radiation that she completed in February 2021. She also has history of DVT/PE anti-coagulated with warfarin, protein C&S deficiency, TIA, seizure disorder, hypothyroidism, hyperlipidemia, COPD with chronic and ongoing tobacco dependence. No home oxygen. She follows with Dr. Maria in the outpatient setting and was being seen there yesterday when she was having complaints of increasing shortness of breath and chest heaviness. She was referred here for the same. She has had a nonproductive cough. She states she's had some fever and chills. Chest x-ray reveals diffuse opacities throughout the left lung. White count 8.8. Hemoglobin 9.4. Platelet count 92,000. Sodium 132. Potassium 4.8. Bicarbonate 13. BUN 42. Creatinine 2.22. Glucose 146. Influenza screen negative. COVID-19 screen negative. Pro- calcitonin 4.09. Troponin negative times one. ProBNP 3440. INR 1.4. Arterial blood gases on 32% FiO2 revealed a pO2 of 94, pCO2 29 and a pH of 7.36. He is seen today in consultation on the regular medical floor. She is currently sitting up in a chair at the bedside. Awake and alert in no acute distress. Maintaining O2 saturations up to 98% on 5 L/m per nasal cannula. Currently afebrile. Hemodynamically stable. She's been initiated on ceftriaxone and azithromycin. Continued on Singulair, Pulmicort and Perforomist inhalations, D uoNeb inhalations, IV Solu-Medrol. Review of Systems REVIEW OF SYSTEMS: CONSTITUTIONAL: Positive for fever, chills. Denies any recent significant weight loss or weight gain. EYES: Denies change in vision. EARS, NOSE, MOUTH, THROAT: Denies headaches, denies sore throat. CARDIOVASCULAR: Denies chest pain, palpitations or syncopal episodes. RESPIRATORY: Positive for shortness of breath, cough, congestion no hemoptysis. GASTROINTESTINAL: Denies change in appetite, denies abdominal pain GENITOURINARY: Denies hematuria, denies infections. MUSKULOSKELETAL: Denies pain, denies swelling. INTEGUMENTARY: Denies rash, denies eczema. NEUROLOGICAL: Denies recent memory loss, no recent seizure activity. PSYCHIATRIC: Denies anxiety, denies depression. HEMATOLOGIC/LYMPHATIC: Denies anemia, denies enlarged lymph nodes. Past Medical History Past Medical History: Blood Disorder, Cancer, COPD, CVA/TIA, Deep Vein Thrombosis (DVT), GERD/Reflux, Pneumonia, Pulmonary Embolus (PE), Seizure Disorder, Sleep Apnea/CPAP/BIPAP, Thyroid Disorder Additional Past Medical History / Comment(s): L lung cancer with radiation/chemo and pt completed 01/2021, TIA-no residual effects, blood clot left leg and PE left lung, BLANCA with Cpap, last seizure 6-7 years ago, bronchitis, protein S and C deficiency, bilateral ankle/pedal edema, past hx falls, DDD, chronic back and bilateral foot pain, weakness in rt legs thought d/t pinched nerve in back, vertigo. History of Any Multi-Drug Resistant Organisms: None Reported Past Surgical History: Tubal Ligation, Uterine Ablation Additional Past Surgical History / Comment(s): D&C, bronchoscopy with L lung b iopsy x 2 Past Anesthesia/Blood Transfusion Reactions: No Reported Reaction Smoking Status: Current every day smoker - Past Family History Mother Family Medical History: CVA/TIA Additional Family Medical History / Comment(s): Mother of a CVA at the age of 71 yrs. Brother(s) Family Medical History: No Reported History Additional Family Medical History / Comment(s): Patient has no children. Father Additional Family Medical History / Comment(s): Father was an alcoholic and drug addict. Medications and Allergies Home Medications Medication Instructions Recorded Confirmed Type Citalopram Hydrobromide [CeleXA] 20 mg PO W/BRKFST 11/16/18 10/06/21 History Furosemide [Lasix] 40 mg PO Q48H 11/16/18 10/06/21 History HYDROcodone/APAP 10-325MG [[place] 1 tab PO TID PRN 11/16/18 10/06/21 History 10-325] Pantoprazole Sodium 20 mg PO HS 11/16/18 10/06/21 History Tiotropium 18 Mcg/Puff [Spiriva] 1 cap INHALATION RT-HS 11/16/18 10/06/21 History Albuterol Sulfate [Ventolin HFA] 1 - 2 puff INHALATION RT-Q6H PRN 11/14/20 10/06/21 History Levothyroxine Sodium [Synthroid] 25 mcg PO AC-BRKFST 11/14/20 10/06/21 History Albuterol Nebulized [Ventolin 2.5 mg INHALATION RT-TID PRN 01/02/21 10/06/21 History Nebulized] Atorvastatin [Lipitor] 40 mg PO W/BRKFST 01/02/21 10/06/21 History Potassium Chloride [Potassium 10 meq PO BID-W/MEALS@,12 01/02/21 10/06/21 History Chloride ER] Aspirin 325 mg PO HS 10/06/21 10/06/21 History Baclofen [Lioresal] 20 mg PO BID 10/06/21 10/06/21 History Budesonide/Formoterol Fumarate 2 puff INHALATION RT-DAILY 10/06/21 10/06/21 History [Symbicort 160-4.5 Mcg Inhaler] Enoxaparin [Lovenox] 200 mg SQ DAILY 10/06/21 10/06/21 History Ergocalciferol [Vitamin D2 (1250 1,250 mcg PO TU 10/06/21 10/06/21 History Mcg = 53371 Iu)] Furosemide [Lasix] 80 mg PO Q48H 10/06/21 10/06/21 History Gabapentin 300 mg PO HS 10/06/21 10/06/21 History Hydroxychloroquine Sulfate 200 mg PO BID 10/06/21 10/06/21 History [Plaquenil] Montelukast [Singulair] 10 mg PO DAILY@1200 10/06/21 10/06/21 History Vitamin B Complex 1 cap PO W/BRKFST 10/06/21 10/06/21 History levETIRAcetam [Keppra] 750 mg PO BID 10/06/21 10/06/21 History Allergies Allergy/AdvReac Type Severity Reaction Status Date / Time doxycycline Allergy Rash/Hives Verified 10/06/21 14:48 Penicillins Allergy Rash/Hives, Verified 10/06/21 14:48 "hard to heal" Sulfa (Sulfonamide Allergy Rash/Hives,"hard Verified 10/06/21 14:48 Antibiotics) to heal" wool Allergy Rash/Hives, Verified 10/06/21 14:48 itching ivory soap Allergy Rash/Hives, Uncoded 10/06/21 14:48 itching Physical Exam Vitals: Vital Signs Temp Pulse Pulse Resp BP BP Pulse Ox 10/07/21 09:04 90 10/07/21 08:58 88 10/07/21 08:47 88 10/07/21 08:01 98.2 F 81 24 113/54 98 10/07/21 03:43 92 10/07/21 03:34 92 10/07/21 01:43 90 20 112/78 95 10/06/21 20:55 108 H 10/06/21 20:44 110 H 10/06/21 20:32 114 H 10/06/21 20:00 98.4 F 120 H 22 108/75 93 L 10/06/21 17:55 145 H 16 111/62 96 10/06/21 17:37 120 H 10/06/21 17:28 117 H 10/06/21 16:42 147 H 22 105/60 98 10/06/21 14:59 151 H 24 106/60 97 10/06/21 14:19 158 H 38 H 108/56 99 10/06/21 13:19 122 H 10/06/21 13:04 115 H 10/06/21 12:00 98.1 F 118 H 25 H 135/82 94 L Intake and Output 10/06/21 10/07/21 10/07/21 22:59 06:59 14:59 Intake Total 120 240 Balance 120 240 Intake: Oral 120 240 Other: # Voids 1 GENERAL EXAM: Alert, doesn't 55-year-old female, appears older than stated age, on 5 L nasal cannula, comfortable in no apparent distress. HEAD: Normocephalic. EYES: Normal reaction of pupils, equal size. NOSE: Clear with pink turbinates. THROAT: No erythema or exudates. NECK: No masses, no JVD. CHEST: No chest wall deformity. LUNGS: Equal air entry with few scattered rhonchi more so on the left. CVS: S1 and S2 normal with no audible murmur, regular rhythm. ABDOMEN: No hepatosplenomegaly, normal bowel sounds, no guarding or rigidity. SPINE: No scoliosis or deformity SKIN: No rashes CENTRAL NERVOUS SYSTEM: No focal deficits, tone is normal in all 4 extremities. EXTREMITIES: There is no peripheral edema. No clubbing, no cyanosis. Peripheral pulses are intact. Results - Laboratory Findings CBC and BMP: 10/07/21 06:30 10/07/21 06:30 ABG ABG pH 7.36 (7.35-7.45) 10/06/21 16:25 ABG pCO2 29 mmHg (35-45) L 10/06/21 16:25 ABG pO2 94 mmHg (83-108) 10/06/21 16:25 ABG O2 Saturation 97.4 % (94-97) H 10/06/21 16:25 PT/INR, D-dimer PT 14.7 sec (9.0-12.0) H 10/06/21 12:30 INR 1.4 (<1.2) H 10/06/21 12:30 Abnormal lab findings: Abnormal Labs 10/06/21 10/06/21 10/06/21 12:30 12:30 12:30 WBC 13.0 H RBC Hgb 11.2 L Hct Plt Count 111 L Neutrophils # 11.2 H Lymphocytes # 0.7 L PT 14.7 H INR 1.4 H APTT 84.8 H ABG pCO2 ABG HCO3 ABG Total CO2 ABG O2 Saturation Sodium 133 L Chloride 108 H Carbon Dioxide 17 L BUN 36 H Creatinine 1.93 H Glucose 126 H POC Glucose (mg/dL) Calcium Albumin 3.1 L Procalcitonin 10/06/21 10/06/21 10/06/21 12:30 16:25 19:08 WBC RBC Hgb Hct Plt Count Neutrophils # Lymphocytes # PT INR APTT ABG pCO2 29 L ABG HCO3 17 L ABG Total CO2 17 L ABG O2 Saturation 97.4 H Sodium Chloride Carbon Dioxide BUN Creatinine Glucose POC Glucose (mg/dL) 142 H Calcium Albumin Procalcitonin 4.09 H 10/07/21 10/07/21 10/07/21 05:41 06:30 06:30 WBC RBC 3.30 L Hgb 9.4 L D Hct 29.9 L Plt Count 92 L Neutrophils # Lymphocytes # PT INR APTT ABG pCO2 ABG HCO3 ABG Total CO2 ABG O2 Saturation Sodium 132 L Chloride 108 H Carbon Dioxide 13 L BUN 49 H Creatinine 2.22 H Glucose 146 H POC Glucose (mg/dL) 160 H Calcium 7.7 L Albumin 2.8 L Procalcitonin - Diagnostic Findings Chest x-ray: image reviewed Assessment and Plan Assessment: 1 Acute hypoxemic respiratory failure secondary to acute suspected community ac quired pneumonia, more so on the left 2 Acute exacerbation of COPD secondary to above 3 Chronic and ongoing tobacco dependence 4 History of lung cancer status post chemo/radiation completed and February 2021. Originally diagnosed in 2017. Plan is for PET scan in November 2021 5 History of protein C&S deficiency 6 History of DVT/PE, anticoagulated with warfarin 8 Hyperlipidemia 9 Hypothyroidism 10 History of seizure disorder 11 History of depression Plan: The patient was seen and evaluated Chest x-ray and labs reviewed Continue antibiotics, bronchodilators Follow-up chest x-ray in a.m. Titrate down the FiO2 as tolerated We will continue to follow and make further recommendations based on her clinical status I have personally seen and examined the patient, performed the documentation and the assessment and plan as written. Number of minutes spent on the visit: 20.
--- NOTE | 2021-10-07 11:07 | P.CONS ---
History of Present Illness - Reason for Consult Consult date: 10/07/21 SOB, NSCLC Requesting physician: Primo Salas - Chief Complaint SERGE - History of Present Illness Mrs. Royal is a very pleasant pt of Dr. Maria who had a known left lung nodule since 2014, on monitoring. CT chest 08/12/17 revealed 1.5x1.7cm left hilar lesion, on 08/21/2017 PET showed enlarging left lung nodule (compared to PET scan in 2014) with intermediate uptake. Repeat CT chest 11/17/18 revealed revealed 1.8x2.6cm mass in left which increased in size compared to prior CT scan. Brain MRI 11/17/18, done for dizzyness, was negative for metastatic disease. 11/23/18 jose elias small had a bronchoscopy, transbronchial biopsy of left lower lobe, atypical cells suggestive of low grade pulmonary adenocarcinoma. Repeat CT 12/10/18 revealed 2.9cm LLL mass. She was evaluated by Throracic surgeon and was felt not to be a surgical candiate due to her co-morbidities and ended up having SBRT. She continued to follow up with Dr. Swann after radiation. PET 05/10 revealed suspicious uptake and increasing size of left hilar node and new small right lung nodules. She was referred back to Oncology 08/20/20. Repeat PET 09/03/20 revealed increasing size of previously irradiated area, SUV remained stable at 9, no additional suspicious finding. Bronchoscopy, biopsy was suspicious for atypical cells. It was decided by Rad/Onc to wait and repeat PET. 12/10/20 repeat PET revealed suspicious SUV in left hilar region with more solid component, representing local recurrence. A left breast lesion was evaluated by Dr. Swann with mammograms and U/S which came back negative. 01/06/21 she started concurrent weekly taxol/carboplatin with radiation completed on 02/17/21. 04/29/21 repeat PET scan revealed stable findings. It was decided not to proceed with immunotherapy due to connective tissue disease. She has Sjogrens disease, on hydroxychloroquine. She is lupus anticoagulant positive, was on warfarin, now on therapeutic dose of lovenox for the same. She has chronic dyspnea, she has Hx of iron deficiency anemia. Pt came to ofc 10/07/21 with resp c/o, started Wednesday, reports a T max of 102+F, she contacted PCP but, did not go to ER as advised. She is having SOB at rest, cough is so harsh that she will further lose her breath, chest hurts from coughing. Poor appetite right now, denies N,V, she notes increased urination, denies hematuria. She has been started on abx, CXR diffuse hazy density lt lung, nodular density in the rt hilar region, US abd/bladder showing sple nomegaly, no renal or bladder abnormalities, CXR today lt lung density persists but, report reads improved from yesterday. US chest 1.8cm lt pl effusion. Renal function is worsening. She is reporting easier breathing today-she is on 5L NC at baseline she is not on O2, no fever, nausea, chest pain, abd pain, acute changes in bowels, swelling in lower extremities. Review of Systems 10 point ROS neg except as stated in HPI Past Medical History Past Medical History: Blood Disorder, Cancer, COPD, CVA/TIA, Deep Vein Thrombosis (DVT), GERD/Reflux, Pneumonia, Pulmonary Embolus (PE), Seizure Disorder, Sleep Apnea/CPAP/BIPAP, Thyroid Disorder Additional Past Medical History / Comment(s): L lung cancer with radiation/chemo and pt completed 01/2021, TIA-no residual effects, blood clot left leg and PE lef t lung, BLANCA with Cpap, last seizure 6-7 years ago, bronchitis, protein S and C deficiency, bilateral ankle/pedal edema, past hx falls, DDD, chronic back and bilateral foot pain, weakness in rt legs thought d/t pinched nerve in back, vertigo. History of Any Multi-Drug Resistant Organisms: None Reported Past Surgical History: Tubal Ligation, Uterine Ablation Additional Past Surgical History / Comment(s): D&C, bronchoscopy with L lung biopsy x 2 Past Anesthesia/Blood Transfusion Reactions: No Reported Reaction Smoking Status: Current every day smoker - Past Family History Mother Family Medical History: CVA/TIA Additional Family Medical History / Comment(s): Mother of a CVA at the age of 71 yrs. Brother(s) Family Medical History: No Reported History Additional Family Medical History / Comment(s): Patient has no children. Father Additional Family Medical History / Comment(s): Father was an alcoholic and drug addict. Medications and Allergies Home Medications Medication Instructions Recorded Confirmed Type Citalopram Hydrobromide [CeleXA] 20 mg PO W/BRKFST 11/16/18 10/06/21 History Furosemide [Lasix] 40 mg PO Q48H 11/16/18 10/06/21 History HYDROcodone/APAP 10-325MG [[place] 1 tab PO TID PRN 11/16/18 10/06/21 History 10-325] Pantoprazole Sodium 20 mg PO HS 11/16/18 10/06/21 History Tiotropium 18 Mcg/Puff [Spiriva] 1 cap INHALATION RT-HS 11/16/18 10/06/21 History Albuterol Sulfate [Ventolin HFA] 1 - 2 puff INHALATION RT-Q6H PRN 11/14/20 10/06/21 History Levothyroxine Sodium [Synthroid] 25 mcg PO AC-BRKFST 11/14/20 10/06/21 History Albuterol Nebulized [Ventolin 2.5 mg INHALATION RT-TID PRN 01/02/21 10/06/21 History Nebulized] Atorvastatin [Lipitor] 40 mg PO W/BRKFST 01/02/21 10/06/21 History Potassium Chloride [Potassium 10 meq PO BID-W/MEALS@08,12 01/02/21 10/06/21 History Chloride ER] Aspirin 325 mg PO HS 10/06/21 10/06/21 History Baclofen [Lioresal] 20 mg PO BID 10/06/21 10/06/21 History Budesonide/Formoterol Fumarate 2 puff INHALATION RT-DAILY 10/06/21 10/06/21 History [Symbicort 160-4.5 Mcg Inhaler] Enoxaparin [Lovenox] 200 mg SQ DAILY 10/06/21 10/06/21 History Ergocalciferol [Vitamin D2 (1250 1,250 mcg PO TU 10/06/21 10/06/21 History Mcg = 49337 Iu)] Furosemide [Lasix] 80 mg PO Q48H 10/06/21 10/06/21 History Gabapentin 300 mg PO HS 10/06/21 10/06/21 History Hydroxychloroquine Sulfate 200 mg PO BID 10/06/21 10/06/21 History [Plaquenil] Montelukast [Singulair] 10 mg PO DAILY@1200 10/06/21 10/06/21 History Vitamin B Complex 1 cap PO W/BRKFST 10/06/21 10/06/21 History levETIRAcetam [Keppra] 750 mg PO BID 10/06/21 10/06/21 History Allergies Allergy/AdvReac Type Severity Reaction Status Date / Time doxycycline Allergy Rash/Hives Verified 10/06/21 14:48 Penicillins Allergy Rash/Hives, Verified 10/06/21 14:48 "hard to heal" Sulfa (Sulfonamide Allergy Rash/Hives,"hard Verified 10/06/21 14:48 Antibiotics) to heal" wool Allergy Rash/Hives, Verified 10/06/21 14:48 itching ivory soap Allergy Rash/Hives, Uncoded 10/06/21 14:48 itching Physical Exam Vitals: Vital Signs Temp Pulse Pulse Resp BP BP Pulse Ox 10/07/21 08:01 98.2 F 81 24 113/54 98 10/07/21 03:43 92 10/07/21 03:34 92 10/07/21 01:43 90 20 112/78 95 10/06/21 20:55 108 H 10/06/21 20:44 110 H 10/06/21 20:32 114 H 10/06/21 20:00 98.4 F 120 H 22 108/75 93 L 10/06/21 17:55 145 H 16 111/62 96 10/06/21 17:37 120 H 10/06/21 17:28 117 H 10/06/21 16:42 147 H 22 105/60 98 10/06/21 14:59 151 H 24 106/60 97 10/06/21 14:19 158 H 38 H 108/56 99 10/06/21 13:19 122 H 10/06/21 13:04 115 H 10/06/21 12:00 98.1 F 118 H 25 H 135/82 94 L Intake and Output 10/06/21 10/07/21 10/07/21 22:59 06:59 14:59 Intake Total 120 240 Balance 120 240 Intake: Oral 120 240 Other: # Voids 1 - Constitutional General appearance: cooperative, mild distress, obese - EENT Eyes: anicteric sclerae, EOMI ENT: hearing grossly normal, normal oropharynx - Neck Neck: no lymphadenopathy - Respiratory Respiratory: right: diminished, left: rhonchi, wheezing - Cardiovascular Rhythm: irregularly irregular Heart sounds: normal: S1, S2 Abnormal Heart Sounds: no systolic murmur, no diastolic murmur, no rub, no S3 Gallop, no S4 Gallop, no click, no other leg Peripheral Edema: bilateral: None - Gastrointestinal General gastrointestinal: no absent bowel sounds, no decreased bowel sounds, no distended, no hepatomegaly, no hyperactive bowel sounds, normal bowel sounds, no organomegaly, no rigid, no scaphoid, soft, no splenomegaly, no tenderness, no umbilical hernia, no ventral hernia - Integumentary Integumentary: normal - Neurologic Neurologic: CNII-XII intact - Musculoskeletal Musculoskeletal: generalized weakness, strength equal bilaterally - Psychiatric Psychiatric: A&O x's 3, appropriate affect, intact judgment & insight Results CBC & Chem 7: 10/07/21 06:30 10/07/21 06:30 Labs: Abnormal Lab Results - Last 24 Hours (Table) 10/06/21 10/06/21 10/06/21 Range/Units 12:30 12:30 12:30 WBC 13.0 H (3.8-10.6) k/uL RBC (3.80-5.40) m/uL Hgb 11.2 L (11.4-16.0) gm/dL Hct (34.0-46.0) % Plt Count 111 L (150-450) k/uL Neutrophils # 11.2 H (1.3-7.7) k/uL Lymphocytes # 0.7 L (1.0-4.8) k/uL PT 14.7 H (9.0-12.0) sec INR 1.4 H (<1.2) APTT 84.8 H (22.0-30.0) sec ABG pCO2 (35-45) mmHg ABG HCO3 (21-25) mmol/L ABG Total CO2 (19-24) mmol/L ABG O2 Saturation (94-97) % Sodium 133 L (137-145) mmol/L Chloride 108 H (98-107) mmol/L Carbon Dioxide 17 L (22-30) mmol/L BUN 36 H (7-17) mg/dL Creatinine 1.93 H (0.52-1.04) mg/dL Glucose 126 H (74-99) mg/dL POC Glucose (mg/dL) (75-99) mg/dL Calcium (8.4-10.2) mg/dL Albumin 3.1 L (3.5-5.0) g/dL Procalcitonin (0.02-0.09) ng/mL 10/06/21 10/06/21 10/06/21 Range/Units 12:30 16:25 19:08 WBC (3.8-10.6) k/uL RBC (3.80-5.40) m/uL Hgb (11.4-16.0) gm/dL Hct (34.0-46.0) % Plt Count (150-450) k/uL Neutrophils # (1.3-7.7) k/uL Lymphocytes # (1.0-4.8) k/uL PT (9.0-12.0) sec INR (<1.2) APTT (22.0-30.0) sec ABG pCO2 29 L (35-45) mmHg ABG HCO3 17 L (21-25) mmol/L ABG Total CO2 17 L (19-24) mmol/L ABG O2 Saturation 97.4 H (94-97) % Sodium (137-145) mmol/L Chloride (98-107) mmol/L Carbon Dioxide (22-30) mmol/L BUN (7-17) mg/dL Creatinine (0.52-1.04) mg/dL Glucose (74-99) mg/dL POC Glucose (mg/dL) 142 H (75-99) mg/dL Calcium (8.4-10.2) mg/dL Albumin (3.5-5.0) g/dL Procalcitonin 4.09 H (0.02-0.09) ng/mL 10/07/21 10/07/21 10/07/21 Range/Units 05:41 06:30 06:30 WBC (3.8-10.6) k/uL RBC 3.30 L (3.80-5.40) m/uL Hgb 9.4 L D (11.4-16.0) gm/dL Hct 29.9 L (34.0-46.0) % Plt Count 92 L (150-450) k/uL Neutrophils # (1.3-7.7) k/uL Lymphocytes # (1.0-4.8) k/uL PT (9.0-12.0) sec INR (<1.2) APTT (22.0-30.0) sec ABG pCO2 (35-45) mmHg ABG HCO3 (21-25) mmol/L ABG Total CO2 (19-24) mmol/L ABG O2 Saturation (94-97) % Sodium 132 L (137-145) mmol/L Chloride 108 H (98-107) mmol/L Carbon Dioxide 13 L (22-30) mmol/L BUN 49 H (7-17) mg/dL Creatinine 2.22 H (0.52-1.04) mg/dL Glucose 146 H (74-99) mg/dL POC Glucose (mg/dL) 160 H (75-99) mg/dL Calcium 7.7 L (8.4-10.2) mg/dL Albumin 2.8 L (3.5-5.0) g/dL Procalcitonin (0.02-0.09) ng/mL Chest x-ray: report reviewed US - abdomen: report reviewed Assessment and Plan (1) Acute respiratory distress Current Visit: Yes Status: Acute Priority: High Code(s): R06.03 - ACUTE RESPIRATORY DISTRESS SNOMED Code(s): 065837662 (2) Lung cancer Current Visit: Yes Status: Acute Priority: High Code(s): C34.90 - MALIGNANT NEOPLASM OF UNSP PART OF UNSP BRONCHUS OR LUNG SNOMED Code(s): 206442485 (3) Bicytopenia Current Visit: Yes Status: Acute Priority: High Code(s): D75.89 - OTHER SPECIFIED DISEASES OF BLOOD AND BLOOD-FORMING ORGANS SNOMED Code(s): 73544652 Plan: Pt admitted and being treated for pneumonia/COPD exacerbation. Pancultures are pending. Empiric abx. Pulm and IM mgmt. Her breathing is less labored today, she is on 5L NC. Pt is on surveillance for NSCLC, due for 4mo f/u. Will wait for treatment of her current condition then plan scans and f/u Pt baseline Hgb in 9-10's. Hx of iron deficiency, will check iron studies. Plt baseline is 90-100K. Hx DVT/PE 1995, lupus anticoagulant +. Ok to cont therapeutic dose lovenox. Doctor attests: I performed a history and physical examination of this patient, developed impression and plan of care, discussed with dictator. I agree with dictators note, documented as a scribe.
[2021-10-07 11:52] LABS: Glucose,Whole Blood 153 mg/dL (75-99)
[2021-10-07 12:32] LABS: Reticulocyte % 1.4 % (0.5-2.0)
--- NOTE | 2021-10-07 12:35 | P.NPCON ---
History of Present Illness - Reason for Consult acute renal failure - History of Present Illness Patient is a 55-year-old female with history of non-small cell lung cancer status post chemotherapy and radiation therapy, patient also has a history of DVT/PE with protein C deficiency. Patient is admitted to the hospital with complaints of shortness of breath. Patient did have fever of 102.7F at home. She has had a dry cough. Chest x-ray showed opacification of the left lung. Patient is being treated for pneumonia. Serum creatinine was 1.9 mg/dL yesterday and it is at 2.2 today. Previous creatinine was 1.0 on 12/30/2020 Blood pressure has been low with systolic 88 mmHg Review of Systems As per HPI Past Medical History Past Medical History: Blood Disorder, Cancer, COPD, CVA/TIA, Deep Vein Thrombosis (DVT), GERD/Reflux, Pneumonia, Pulmonary Embolus (PE), Seizure Disorder, Sleep Apnea/CPAP/BIPAP, Thyroid Disorder Additional Past Medical History / Comment(s): L lung cancer with radiation/chemo and pt completed 01/2021, TIA-no residual effects, blood clot left leg and PE left lung, BLANCA with Cpap, last seizure 6-7 years ago, bronchitis, protein S and C deficiency, bilateral ankle/pedal edema, past hx falls, DDD, chronic back and bilateral foot pain, weakness in rt legs thought d/t pinched nerve in back, vertigo. History of Any Multi-Drug Resistant Organisms: None Reported Past Surgical History: Tubal Ligation, Uterine Ablation Additional Past Surgical History / Comment(s): D&C, bronchoscopy with L lung biopsy x 2 Past Anesthesia/Blood Transfusion Reactions: No Reported Reaction Smoking Status: Current every day smoker - Past Family History Mother Family Medical History: CVA/TIA Additional Family Medical History / Comment(s): Mother of a CVA at the age of 71 yrs. Brother(s) Family Medical History: No Reported History Additional Family Medical History / Comment(s): Patient has no children. Father Additional Family Medical History / Comment(s): Father was an alcoholic and drug addict. Medications and Allergies Home Medications Medication Instructions Recorded Confirmed Type Citalopram Hydrobromide [CeleXA] 20 mg PO W/BRKFST 11/16/18 10/06/21 History Furosemide [Lasix] 40 mg PO Q48H 11/16/18 10/06/21 History HYDROcodone/APAP 10-325MG [[place] 1 tab PO TID PRN 11/16/18 10/06/21 History 10-325] Pantoprazole Sodium 20 mg PO HS 11/16/18 10/06/21 History Tiotropium 18 Mcg/Puff [Spiriva] 1 cap INHALATION RT-HS 11/16/18 10/06/21 History Albuterol Sulfate [Ventolin HFA] 1 - 2 puff INHALATION RT-Q6H PRN 11/14/20 10/06/21 History Levothyroxine Sodium [Synthroid] 25 mcg PO AC-BRKFST 11/14/20 10/06/21 History Albuterol Nebulized [Ventolin 2.5 mg INHALATION RT-TID PRN 01/02/21 10/06/21 History Nebulized] Atorvastatin [Lipitor] 40 mg PO W/BRKFST 01/02/21 10/06/21 History Potassium Chloride [Potassium 10 meq PO BID-W/MEALS@,01/02/21 10/06/21 History Chloride ER] Aspirin 325 mg PO HS 10/06/21 10/06/21 History Baclofen [Lioresal] 20 mg PO BID 10/06/21 10/06/21 History Budesonide/Formoterol Fumarate 2 puff INHALATION RT-DAILY 10/06/21 10/06/21 History [Symbicort 160-4.5 Mcg Inhaler] Enoxaparin [Lovenox] 200 mg SQ DAILY 10/06/21 10/06/21 History Ergocalciferol [Vitamin D2 (1250 1,250 mcg PO TU 10/06/21 10/06/21 History Mcg = 97238 Iu)] Furosemide [Lasix] 80 mg PO Q48H 10/06/21 10/06/21 History Gabapentin 300 mg PO HS 10/06/21 10/06/21 History Hydroxychloroquine Sulfate 200 mg PO BID 10/06/21 10/06/21 History [Plaquenil] Montelukast [Singulair] 10 mg PO DAILY@1200 10/06/21 10/06/21 History Vitamin B Complex 1 cap PO W/BRKFST 10/06/21 10/06/21 History levETIRAcetam [Keppra] 750 mg PO BID 10/06/21 10/06/21 History Allergies Allergy/AdvReac Type Severity Reaction Status Date / Time doxycycline Allergy Rash/Hives Verified 10/06/21 14:48 Penicillins Allergy Rash/Hives, Verified 10/06/21 14:48 "hard to heal" Sulfa (Sulfonamide Allergy Rash/Hives,"hard Verified 10/06/21 14:48 Antibiotics) to heal" wool Allergy Rash/Hives, Verified 10/06/21 14:48 itching ivory soap Allergy Rash/Hives, Uncoded 10/06/21 14:48 itching Physical Exam Vitals: Vital Signs Temp Pulse Pulse Resp BP BP Pulse Ox 10/07/21 12:11 92 10/07/21 11:58 92 10/07/21 11:39 97.4 F L 88 22 88/54 98 10/07/21 09:04 90 10/07/21 08:58 88 10/07/21 08:47 88 10/07/21 08:01 98.2 F 81 24 113/54 98 10/07/21 03:43 92 10/07/21 03:34 92 10/07/21 01:43 90 20 112/78 95 10/06/21 20:55 108 H 10/06/21 20:44 110 H 10/06/21 20:32 114 H 10/06/21 20:00 98.4 F 120 H 22 108/75 93 L 10/06/21 17:55 145 H 16 111/62 96 10/06/21 17:37 120 H 10/06/21 17:28 117 H 10/06/21 16:42 147 H 22 105/60 98 10/06/21 14:59 151 H 24 106/60 97 10/06/21 14:19 158 H 38 H 108/56 99 10/06/21 13:19 122 H 10/06/21 13:04 115 H Intake and Output 10/06/21 10/07/21 10/07/21 22:59 06:59 14:59 Intake Total 120 250 Output Total 150 Balance 120 100 Intake: IV 10 Invasive Line 4 10 Oral 120 240 Output: Urine 150 Other: # Voids 1 Patient is awake comfortable. 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 Acute kidney injury, ATN associated with hypoperfusion and underlying infection. Rule out urine retention. Check urine analysis. No hydronephrosis noted on ultrasound. 2. Non-gap metabolic acidosis associated with acute kidney injury 3. History of non-small cell lung cancer status post chemotherapy and radiation therapy 4. Atrial flutter status post Cardizem drip 5. History of DVT/PE with protein C and S deficiency Plan: Add IV bicarb and oral sodium bicarb Add midodrine if blood pressure remains low Check urine analysis Continue antibiotics Check iron profile Thank you for the consultation. We'll continue to follow the patient with you during her hospitalization
[2021-10-07] MEDS: MONTELUKAST 10 MG TAB PO SCH (12:36)
[2021-10-07 12:39] LABS: Appearance,Urine Cloudy (Clear); Bacteria,Urine Rare /hpf; Bilirubin,Urine Negative (Negative); Blood,Urine Negative (Negative); Color,Urine Yellow; Glucose,Urine (UA) Negative (Negative); Hyaline Casts,Urine 13 /lpf (0-2); Ketones,Urine Negative (Negative); Leukocyte Esterase,Urine Negative (Negative); Mucus,Urine Rare /hpf; Nitrite,Urine Negative (Negative); PH, Urine 5.5 (5.0-8.0); Protein,Urine 1+ (Negative); RBC,Urine 1 /hpf (0-5); Squamous Epithelial Cell,Urine 7 /hpf (0-4); Urobilinogen,Urine <2.0 mg/dL (<2.0); WBC,Urine 2 /hpf (0-5)
[2021-10-07] MEDS ORDERED: DEXTROSE 5% IN WATER 1,000 ML with SODIUM BICARB (1 MEQ/ML) 150 ML IV SCH (12:45)
--- NOTE | 2021-10-07 13:01 | P.CRDCN ---
History of Present Illness Consult date: 10/07/21 History of present illness: HISTORY OF PRESENT ILLNESS: This is a 55-year-old female with a past medical history significant for non- small cell lung cancer, COPD, and DVT with protein C&S deficiency on long-term anticoagulation with Lovenox. 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 We have been asked to see the patient in consultation for atrial flutter. Patient examined at the bedside. patient presented to the hospital with a chief compl aint of shortness of breath. The patient was found to be in a flutter with RVR yesterday. The patient denies having a previous history of atrial flutter. The patient received metoprolol IV push with no improvement in her heart rate. She was since started on a Cardizem drip which has been discontinued this morning per nursing. The patient is already anticoagulated with Lovenox. She states she was previously on Coumadin and had difficulty regulating her INR so she was switched to Lovenox injections. * EKG reveals atrial flutter with RVR * Chest xray appropriate opacification of the left lung field. Correlate for pneumonia. Continued follow-up is recommended. * Laboratory data: WBC 8.8. Hemoglobin 9.4. Platelet count 92. Sodium 132. Potassium 4.8. BUN 49. Creatinine 2.22. * Current home cardiac medications include Lipitor 40 mg daily, Lasix 80 mg every 48 hours, 40 mg every 48 hours, aspirin 325 mg at night, and Lovenox 200 mg subcu daily * Most recent echocardiogram obtained in October 2020 revealed ejection fraction 55- 60%, trace MR, trace TR REVIEW OF SYSTEMS: At the time of my exam: CONSTITUTIONAL: Denies fever or chills. HEENT: Denies blurred vision, vision changes, or eye pain. Denies hemoptysis CARDIOVASCULAR: Denies chest pain. Denies orthopnea. Denies PND. Denies palpitations RESPIRATORY: + shortness of breath. GASTROINTESTINAL: Denies abdominal pain. Denies nausea or vomiting. HEMATOLOGIC: Denies bleeding disorders. GENITOURINARY: Denies any blood in urine. SKIN: Denies pruitis. Denies rash. PHYSICAL EXAM: VITAL SIGNS: Reviewed. GENERAL: Well-developed in no acute distress. HEENT: Head is normocephalic. Pupils are equal, round. Sclerae anicteric. Mucous membranes of the mouth are moist. Neck supple. No JVD or thyromegaly LUNGS: Respirations even and unlabored. Lungs with rhonchi bilaterally. HEART: Regular rate and rhythm. S1 and S2 heard. ABDOMEN: Soft. Nondistended. Nontender. EXTREMITIES: Normal range of motion. No clubbing or cyanosis. Peripheral pulses intact. No lower extremity edema NEUROLOGIC: Awake and alert. Oriented x 3. ASSESSMENT: Shortness of breath Pneumonia History of non-small cell lung cancer with previous chemo and radiation New onset paroxysmal typical atrial flutter with RVR History of protein C&S deficiency, on anticoagulation with Lovenox History of DVT PLAN: Obtain 2D echo to assess cardiac structure and function Discontinue IV Cardizem Begin Cardizem CD 180 mg Check TSH Continue Lovenox Further recommendations pending patient course Nurse practitioner note has been reviewed by physician. Signing provider agrees with the documented findings, assessment, and plan of care. Past Medical History Past Medical History: Blood Disorder, Cancer, COPD, CVA/TIA, Deep Vein Thrombosis (DVT), GERD/Reflux, Pneumonia, Pulmonary Embolus (PE), Seizure Disorder, Sleep Apnea/CPAP/BIPAP, Thyroid Disorder Additional Past Medical History / Comment(s): L lung cancer with radiation/chemo and pt completed 01/2021, TIA-no residual effects, blood clot left leg and PE left lung, BLANCA with Cpap, last seizure 6-7 years ago, bronchitis, protein S and C deficiency, bilateral ankle/pedal edema, past hx falls, DDD, chronic back and bilateral foot pain, weakness in rt legs thought d/t pinched nerve in back, vertigo. History of Any Multi-Drug Resistant Organisms: None Reported Past Surgical History: Tubal Ligation, Uterine Ablation Additional Past Surgical History / Comment(s): D&C, bronchoscopy with L lung biopsy x 2 Past Anesthesia/Blood Transfusion Reactions: No Reported Reaction Smoking Status: Current every day smoker - Past Family History Mother Family Medical History: CVA/TIA Additional Family Medical History / Comment(s): Mother of a CVA at the age of 71 yrs. Brother(s) Family Medical History: No Reported History Additional Family Medical History / Comment(s): Patient has no children. Father Additional Family Medical History / Comment(s): Father was an alcoholic and drug addict. Medications and Allergies Home Medications Medication Instructions Recorded Confirmed Type Citalopram Hydrobromide [CeleXA] 20 mg PO W/BRKFST 11/16/18 10/06/21 History Furosemide [Lasix] 40 mg PO Q48H 11/16/18 10/06/21 History HYDROcodone/APAP 10-325MG [[place] 1 tab PO TID PRN 11/16/18 10/06/21 History 10-325] Pantoprazole Sodium 20 mg PO HS 11/16/18 10/06/21 History Tiotropium 18 Mcg/Puff [Spiriva] 1 cap INHALATION RT-HS 11/16/18 10/06/21 History Albuterol Sulfate [Ventolin HFA] 1 - 2 puff INHALATION RT-Q6H PRN 11/14/20 10/06/21 History Levothyroxine Sodium [Synthroid] 25 mcg PO AC-BRKFST 11/14/20 10/06/21 History Albuterol Nebulized [Ventolin 2.5 mg INHALATION RT-TID PRN 01/02/21 10/06/21 History Nebulized] Atorvastatin [Lipitor] 40 mg PO W/BRKFST 01/02/21 10/06/21 History Potassium Chloride [Potassium 10 meq PO BID-W/MEALS@,12 01/02/21 10/06/21 History Chloride ER] Aspirin 325 mg PO HS 10/06/21 10/06/21 History Baclofen [Lioresal] 20 mg PO BID 10/06/21 10/06/21 History Budesonide/Formoterol Fumarate 2 puff INHALATION RT-DAILY 10/06/21 10/06/21 History [Symbicort 160-4.5 Mcg Inhaler] Enoxaparin [Lovenox] 200 mg SQ DAILY 10/06/21 10/06/21 History Ergocalciferol [Vitamin D2 (1250 1,250 mcg PO TU 10/06/21 10/06/21 History Mcg = 77461 Iu)] Furosemide [Lasix] 80 mg PO Q48H 10/06/21 10/06/21 History Gabapentin 300 mg PO HS 10/06/21 10/06/21 History Hydroxychloroquine Sulfate 200 mg PO BID 10/06/21 10/06/21 History [Plaquenil] Montelukast [Singulair] 10 mg PO DAILY@1200 10/06/21 10/06/21 History Vitamin B Complex 1 cap PO W/BRKFST 10/06/21 10/06/21 History levETIRAcetam [Keppra] 750 mg PO BID 10/06/21 10/06/21 History Allergies Allergy/AdvReac Type Severity Reaction Status Date / Time doxycycline Allergy Rash/Hives Verified 10/06/21 14:48 Penicillins Allergy Rash/Hives, Verified 10/06/21 14:48 "hard to heal" Sulfa (Sulfonamide Allergy Rash/Hives,"hard Verified 10/06/21 14:48 Antibiotics) to heal" wool Allergy Rash/Hives, Verified 10/06/21 14:48 itching ivory soap Allergy Rash/Hives, Uncoded 10/06/21 14:48 itching Physical Exam Vitals: Vital Signs Temp Pulse Pulse Resp BP BP Pulse Ox 10/07/21 12:11 92 10/07/21 11:58 92 10/07/21 11:39 97.4 F L 88 22 88/54 98 10/07/21 09:04 90 10/07/21 08:58 88 10/07/21 08:47 88 10/07/21 08:01 98.2 F 81 24 113/54 98 10/07/21 03:43 92 10/07/21 03:34 92 10/07/21 01:43 90 20 112/78 95 10/06/21 20:55 108 H 10/06/21 20:44 110 H 10/06/21 20:32 114 H 10/06/21 20:00 98.4 F 120 H 22 108/75 93 L 10/06/21 17:55 145 H 16 111/62 96 10/06/21 17:37 120 H 10/06/21 17:28 117 H 10/06/21 16:42 147 H 22 105/60 98 10/06/21 14:59 151 H 24 106/60 97 10/06/21 14:19 158 H 38 H 108/56 99 10/06/21 13:19 122 H 10/06/21 13:04 115 H Intake and Output 10/06/21 10/07/21 10/07/21 22:59 06:59 14:59 Intake Total 120 250 Output Total 150 Balance 120 100 Intake: IV 10 Invasive Line 4 10 Oral 120 240 Output: Urine 150 Other: # Voids 1 Results 10/07/21 06:30 10/07/21 06:30 Cardiac Enzymes 10/06/21 10/06/21 10/07/21 Range/Units 12:30 12:30 06:30 AST 23 18 (14-36) U/L Troponin I 0.020 (0.000-0.034) ng/mL Coagulation 10/06/21 Range/Units 12:30 PT 14.7 H (9.0-12.0) sec APTT 84.8 H (22.0-30.0) sec CBC 10/07/21 Range/Units 06:30 WBC 8.8 (3.8-10.6) k/uL RBC 3.30 L (3.80-5.40) m/uL Hgb 9.4 L D (11.4-16.0) gm/dL Hct 29.9 L (34.0-46.0) % Plt Count 92 L (150-450) k/uL Comprehensive Metabolic Panel 10/06/21 10/07/21 Range/Units 12:30 06:30 Sodium 133 L 132 L (137-145) mmol/L Potassium 4.8 4.8 (3.5-5.1) mmol/L Chloride 108 H 108 H (98-107) mmol/L Carbon Dioxide 17 L 13 L (22-30) mmol/L BUN 36 H 49 H (7-17) mg/dL Creatinine 1.93 H 2.22 H (0.52-1.04) mg/dL Glucose 126 H 146 H (74-99) mg/dL Calcium 8.4 7.7 L (8.4-10.2) mg/dL AST 23 18 (14-36) U/L ALT 24 21 (4-34) U/L Alkaline Phosphatase 71 69 (38-126) U/L Total Protein 6.8 6.3 (6.3-8.2) g/dL Albumin 3.1 L 2.8 L (3.5-5.0) g/dL Current Medications Generic Name Dose Route Start Last Admin Trade Name Freq PRN Reason Stop Dose Admin Acetaminophen 650 mg 10/06/21 13:34 Acetaminophen Tab 325 Mg Tab PO Q6HR PRN Mild Pain or Fever > 100.5 Hydrocodone Bitart/Acetaminophen 1 each 10/06/21 15:53 10/06/21 19:52 Hydrocodone/Apap 10-325mg 1 Each Tab PO 1 each TID PRN Administration Pain Albuterol Sulfate 2.5 mg 10/06/21 15:55 10/07/21 03:34 Albuterol Nebulized 2.5 Mg/3 Ml INHALATION 2.5 mg RT-Q1H PRN Administration Shortness Of Breath Or Wheezing Albuterol/Ipratropium 3 ml 10/07/21 08:00 10/07/21 11:58 Ipratropium-Albuterol 3 Ml Neb INHALATION 3 ml RT-QID ZARIA Administration Aspirin 325 mg 10/06/21 21:00 10/06/21 19:52 Aspirin 325 Mg Tab PO 325 mg HS ZARIA Administration Atorvastatin Calcium 40 mg 10/07/21 07:30 10/07/21 06:32 Atorvastatin 40 Mg Tab PO 40 mg W/BRKFST ZARIA Administration Baclofen 20 mg 10/06/21 21:00 10/07/21 08:35 Baclofen 10 Mg Tab PO 20 mg BID ZARIA Administration Budesonide 1 mg 10/06/21 20:00 10/07/21 08:46 Budesonide 1 Mg/2 Ml Nebu INHALATION 1 mg RT-BID ZARIA Administration Citalopram Hydrobromide 20 mg 10/07/21 07:30 10/07/21 06:32 Citalopram Hydrobromide 20 Mg Tab PO 20 mg W/BRKFST ZAIRA Administration Diltiazem HCl 180 mg 10/07/21 09:30 Diltiazem Cd 180 Mg Cap.Er.24h PO DAILY ZARIA Enoxaparin Sodium 200 mg 10/06/21 16:00 10/07/21 08:36 Enoxaparin 100 Mg/Ml Syringe SQ 200 mg DAILY ZARIA Administration Formoterol Fumarate 20 mcg 10/06/21 20:00 10/07/21 08:46 Formoterol Fumarate 20 Mcg/2 Ml Nebu INHALATION 20 mcg RT-BID ZARIA Administration Gabapentin 300 mg 10/06/21 21:00 10/06/21 19:53 Gabapentin 300 Mg Cap PO 300 mg HS ZARIA Administration Ceftriaxone Sodium 2 gm/ 50 mls @ 100 mls/hr 10/07/21 09:00 10/07/21 12:09 Sodium Chloride IVPB 100 mls/hr Q24HR ZARIA Administration Protocol Azithromycin 500 mg/ Sodium 250 mls @ 250 mls/hr 10/07/21 09:00 10/07/21 10:05 Chloride IVPB 10/09/21 09:59 250 mls/hr DAILY ZARIA Administration Protocol Sodium Bicarbonate 150 ml/ 1,150 mls @ 50 mls/hr 10/07/21 12:45 Dextrose/Water IV .Q23H ZARIA Levetiracetam 750 mg 10/06/21 21:00 10/07/21 08:36 Levetiracetam 750 Mg Tab PO 750 mg BID ZARIA Administration Levothyroxine Sodium 25 mcg 10/07/21 07:30 10/07/21 06:32 Levothyroxine 25 Mcg Tab PO 25 mcg AC-BRKFST ZARIA Administration Lorazepam 0.5 mg 10/06/21 15:58 Lorazepam 2 Mg/Ml Inj IV Q6HR PRN Anxiety Melatonin 3 mg 10/06/21 15:58 Melatonin 3 Mg Tablet PO HS PRN Insomnia Methylprednisolone Sodium Succinate 60 mg 10/06/21 16:00 10/07/21 10:05 Methylprednisolone Sod Succi 125 Mg/2 Ml Vial IV 60 mg Q8HR ZARIA Administration Montelukast Sodium 10 mg 10/06/21 16:30 10/07/21 12:36 Montelukast 10 Mg Tab PO 10 mg DAILY@1200 [facility] Administration Morphine Sulfate 4 mg 10/06/21 14:49 10/06/21 14:56 Morphine Sulfate 4 Mg/Ml Syringe IVP 4 mg Q4HR PRN Administration severe pain Naloxone HCl 0.2 mg 10/06/21 13:34 Naloxone 0.4 Mg/Ml 1 Ml Vial IV Q2M PRN Opioid Reversal Ondansetron HCl 4 mg 10/06/21 15:58 Ondansetron 4 Mg/2 Ml Vial IVP Q8HR PRN Nausea And Vomiting Pantoprazole Sodium 20 mg 10/06/21 21:00 10/06/21 19:52 Pantoprazole Sodium 40 Mg Granule Pkt PO 20 mg HS ZARIA Administration Sodium Bicarbonate 650 mg 10/07/21 21:00 Sodium Bicarbonate Tab 650 Mg Tab PO BID ZARIA Intake and Output 10/06/21 10/07/21 10/07/21 22:59 06:59 14:59 Intake Total 120 250 Output Total 150 Balance 120 100 Intake: IV 10 Invasive Line 4 10 Oral 120 240 Output: Urine 150 Other: # Voids 1 10/07/21 06:30 10/07/21 06:30
--- NOTE | 2021-10-07 13:27 | P.PN ---
Subjective Principal diagnosis: Admitted with shortness of breath and infiltrate in the left lung. History of lung cancer, status post chemo and radiation 03/11. Patient states that she is feeling much better respiratory-tellez this morning. She is now on nasal cannula. She denies any significant cough expectoration or chest pain. Denies any fever or chills. She typically takes Lasix at home and she has her lites currently swollen. Objective - Vital Signs Vital signs: Vital Signs Temp 97.4 F L 10/07/21 11:39 Pulse 92 10/07/21 12:11 Resp 22 10/07/21 11:39 BP 88/54 10/07/21 11:39 Pulse Ox 98 10/07/21 11:39 Intake & Output 10/06/21 10/07/21 10/07/21 18:59 06:59 18:59 Intake Total 120 250 Output Total 150 Balance 120 100 Weight 134.263 kg Intake: IV 10 Invasive Line 4 10 Oral 120 240 Output: Urine 150 Other: # Voids 1 - Exam General: Awake alert oriented 3 in no) distress Head and neck: Automatic normocephalic on icteric sclera no facial asymmetry otopharyngeal mucosa is clear without any lesions no neck masses no JVD Cardiovascular: S1S2 reg, no murmur, positive posterior tibial pulse bilateral, no edema, capillary refill less than 2 seconds Lungs: clear to ascultation bilateral, no ronchi, no rales, no wheeze, no accessory muscle use Abdominal: soft, nontender to palpation, no guarding, no appreciable organomegaly, normal bowel sounds Ext: One plus pitting edema bilateral, scarring from previous ulcers, warm well perfused no cyanosis [place] pedis pulses present bilateral - Labs CBC & Chem 7: 10/07/21 06:30 10/07/21 06:30 Labs: Abnormal Lab Results - Last 24 Hours (Table) 10/06/21 10/06/21 10/06/21 Range/Units 12:30 12:30 16:25 RBC (3.80-5.40) m/uL Hgb (11.4-16.0) gm/dL Hct (34.0-46.0) % Plt Count (150-450) k/uL ABG pCO2 29 L (35-45) mmHg ABG HCO3 17 L (21-25) mmol/L ABG Total CO2 17 L (19-24) mmol/L ABG O2 Saturation 97.4 H (94-97) % Sodium 133 L (137-145) mmol/L Chloride 108 H (98-107) mmol/L Carbon Dioxide 17 L (22-30) mmol/L BUN 36 H (7-17) mg/dL Creatinine 1.93 H (0.52-1.04) mg/dL Glucose 126 H (74-99) mg/dL POC Glucose (mg/dL) (75-99) mg/dL Calcium (8.4-10.2) mg/dL Albumin 3.1 L (3.5-5.0) g/dL Procalcitonin 4.09 H (0.02-0.09) ng/mL Urine Appearance (Clear) Urine Protein (Negative) Ur Squamous Epith Cells (0-4) /hpf Urine Bacteria (None) /hpf Hyaline Casts (0-2) /lpf Urine Mucus (None) /hpf 10/06/21 10/07/21 10/07/21 Range/Units 19:08 05:41 06:30 RBC 3.30 L (3.80-5.40) m/uL Hgb 9.4 L D (11.4-16.0) gm/dL Hct 29.9 L (34.0-46.0) % Plt Count 92 L (150-450) k/uL ABG pCO2 (35-45) mmHg ABG HCO3 (21-25) mmol/L ABG Total CO2 (19-24) mmol/L ABG O2 Saturation (94-97) % Sodium (137-145) mmol/L Chloride (98-107) mmol/L Carbon Dioxide (22-30) mmol/L BUN (7-17) mg/dL Creatinine (0.52-1.04) mg/dL Glucose (74-99) mg/dL POC Glucose (mg/dL) 142 H 160 H (75-99) mg/dL Calcium (8.4-10.2) mg/dL Albumin (3.5-5.0) g/dL Procalcitonin (0.02-0.09) ng/mL Urine Appearance (Clear) Urine Protein (Negative) Ur Squamous Epith Cells (0-4) /hpf Urine Bacteria (None) /hpf Hyaline Casts (0-2) /lpf Urine Mucus (None) /hpf 10/07/21 10/07/21 10/07/21 Range/Units 06:30 11:51 12:00 RBC (3.80-5.40) m/uL Hgb (11.4-16.0) gm/dL Hct (34.0-46.0) % Plt Count (150-450) k/uL ABG pCO2 (35-45) mmHg ABG HCO3 (21-25) mmol/L ABG Total CO2 (19-24) mmol/L ABG O2 Saturation (94-97) % Sodium 132 L (137-145) mmol/L Chloride 108 H (98-107) mmol/L Carbon Dioxide 13 L (22-30) mmol/L BUN 49 H (7-17) mg/dL Creatinine 2.22 H (0.52-1.04) mg/dL Glucose 146 H (74-99) mg/dL POC Glucose (mg/dL) 153 H (75-99) mg/dL Calcium 7.7 L (8.4-10.2) mg/dL Albumin 2.8 L (3.5-5.0) g/dL Procalcitonin (0.02-0.09) ng/mL Urine Appearance Cloudy H (Clear) Urine Protein 1+ H (Negative) Ur Squamous Epith Cells 7 H (0-4) /hpf Urine Bacteria Rare H (None) /hpf Hyaline Casts 13 H (0-2) /lpf Urine Mucus Rare H (None) /hpf Assessment and Plan Assessment: #Acute hypoxic respiratory failure Due to left-sided pneumonia and acute exacerbation of COPD in the setting of non-small lung cancer Chest x-ray: Left-sided haziness, somewhat improved today Pulmonary consultation, continue per their recommendation Continue antibiotics, ceftriaxone and Zithromax started 10/06/21 Sputum cultures and Gram stain Blood cultures: No growth to date Influenza and COVID-19 negative Pro calcitonin 4.09 Legionella urine antigen pending Continue antibiotics, systemic steroids, bronchodilators, pulmonary toilet, incentive spirometry Remains febrile, white blood cell count trending down #Paroxysmal Atrial flutter, new diagnosis -Patient is already on full dose Lovenox for history of DVT Cardiology evaluated, transition to oral Cardizem TSH and echocardiogram #Elevated creatinine ,PIERCE Nephrology consultation - Avoid nephrotoxic agents - follow Cr - check renal US Urine analysis #Anemia and thrombocytopenia, appears better than baseline Oncology following #Hyponatremia -Possibly secondary to poor solute intake versus fluid overload -Repeat in a.m. #Hx of venous thromboembolism, with protein C and protein S deficiency -Continue with Lovenox Chronic: GERD Seizure BLANCA TIA
[2021-10-07 16:22] LABS: Glucose,Whole Blood 243 mg/dL (75-99)
[2021-10-07 20:15] LABS: Glucose,Whole Blood 159 mg/dL (75-99)
[2021-10-07] MEDS: PANTOPRAZOLE SODIUM 40 MG GRANULE PKT PO SCH (20:40)
[2021-10-07] MEDS: ASPIRIN 325 MG TAB PO SCH (20:42)
[2021-10-07] MEDS: SODIUM BICARBONATE TAB 650 MG TAB PO SCH (20:42)
[2021-10-07] MEDS: GABAPENTIN 300 MG CAP PO SCH (20:42)
[2021-10-07] MEDS: HYDROcodone/APAP 10-325MG 1 EACH TAB PO PRN (21:21)
[2021-10-08] MEDS: DILTIAZEM CD 180 MG CAP.ER.24H PO SCH ×2 (01:26→09:59)
[2021-10-08 06:08] LABS: Glucose,Whole Blood 155 mg/dL (75-99)
[2021-10-08] MEDS: ATORVASTATIN 40 MG TAB PO SCH (06:25)
[2021-10-08] MEDS: LEVOTHYROXINE 25 MCG TAB PO SCH (06:26)
[2021-10-08] MEDS: CITALOPRAM HYDROBROMIDE 20 MG TAB PO SCH (06:26)
[2021-10-08 07:16] LABS: HCT 29.6 % (34.0-46.0); HGB 9.3 gm/dL (11.4-16.0); MCH 28.1 pg (25.0-35.0); MCHC 31.3 g/dL (31.0-37.0); Mean Platelet Volume 9.3; Platelet Count 107 k/uL (150-450); RBC 3.29 m/uL (3.80-5.40); RDW 14.3 % (11.5-15.5); WBC 7.8 k/uL (3.8-10.6)
--- NOTE | 2021-10-08 07:48 | XR ---
EXAMINATION TYPE: XR chest 2V DATE OF EXAM: 10/08/2021 HISTORY: Shortness of breath. COMPARISON: 10/07/2021 TECHNIQUE: Single view of the chest is submitted. FINDINGS: Demonstrated are scattered senescent parenchymal change. Persistent diffuse opacification left hemithorax may reflect layering pleural effusion as well as und erlying consolidative process. Increasing patchy density throughout the right lung. The heart is stable. Hilar and mediastinal structures are within normal limits. Degenerative changes are seen of the dorsal spine. IMPRESSION: 1. Persistent diffuse opacification left hemithorax may reflect layering pleural effusion as well as underlying consolidative process. Increasing patchy density throughout the right lung.
[2021-10-08 07:49] LABS: Calcium 7.6 mg/dL (8.4-10.2); Potassium 4.5 mmol/L (3.5-5.1)
[2021-10-08] MEDS: FORMOTEROL FUMARATE 20 MCG/2 ML NEBU INHALATION SCH ×2 (09:02→21:43)
[2021-10-08] MEDS: BUDESONIDE 1 MG/2 ML NEBU INHALATION SCH ×2 (09:02→21:43)
[2021-10-08] MEDS: IPRATROPIUM-ALBUTEROL 3 ML NEB INHALATION SCH ×4 (09:02→21:43)
[2021-10-08 09:40] LABS: C Reactive Protein 17.6 mg/dL (<1.0)
[2021-10-08] MEDS: BACLOFEN 10 MG TAB PO SCH ×2 (09:59→20:27)
[2021-10-08] MEDS: methylPREDNISolone SOD SUCCI 125 MG/2 ML VIAL IV SCH ×3 (09:59→23:16)
[2021-10-08] MEDS: SODIUM BICARBONATE TAB 650 MG TAB PO SCH (09:59)
[2021-10-08] MEDS: ENOXAPARIN 100 MG/ML SYRINGE SQ SCH (10:18)
[2021-10-08] MEDS ORDERED: FUROSEMIDE 10 MG/ML 4 ML VIAL IV STA (10:26)
[2021-10-08] MEDS: AZITHROMYCIN 500 MG in SODIUM CHLORIDE 0.9% 250 ML IVPB SCH (10:28)
[2021-10-08] MEDS: NICOTINE 14MG/24HR PATCH TRANSDERM SCH (10:36)
--- NOTE | 2021-10-08 11:18 | P.PN ---
Subjective Progress Note Date: 10/08/21 Principal diagnosis: COPD exacerbation This a very pleasant 55-year-old female patient with a known history of lung cancer/adenocarcinoma diagnosed in 2017. She had initially had radiation and then subsequently had chemo/radiation that she completed in February 2021. She also has history of DVT/PE anti-coagulated with warfarin, protein C&S deficiency, TIA, seizure disorder, hypothyroidism, hyperlipidemia, COPD with chronic and ongoing tobacco dependence. No home oxygen. She follows with Dr. Maria in the outpatient setting and was being seen there yesterday when she was having complaints of increasing shortness of breath and chest heaviness. She was referred here for the same. She has had a nonproductive cough. She states she's had some fever and chills. Chest x-ray reveals diffuse opacities throughout the left lung. White count 8.8. Hemoglobin 9.4. Platelet count 92,000. Sodium 132. Potassium 4.8. Bicarbonate 13. BUN 42. Creatinine 2.22. Glucose 146. Influenza screen negative. COVID-19 screen negative. Pro- calcitonin 4.09. Troponin negative times one. ProBNP 3440. INR 1.4. Arterial blood gases on 32% FiO2 revealed a pO2 of 94, pCO2 29 and a pH of 7.36. He is seen today in consultation on the regular medical floor. She is currently si tting up in a chair at the bedside. Awake and alert in no acute distress. Maintaining O2 saturations up to 98% on 5 L/m per nasal cannula. Currently afebrile. Hemodynamically stable. She's been initiated on ceftriaxone and azithromycin. Continued on Singulair, Pulmicort and Perforomist inhalations, DuoNeb inhalations, IV Solu-Medrol. The patient is seen today 10/08/2021 in follow-up on the selective care unit. She is currently sitting up in a chair at the bedside. Awake and alert in no acute distress. She had just returned from the bathroom and without her oxygen her saturations were 81%. She is continued on 5 L with O2 saturations in the mid 90s. Chest x-ray continues to report reveal persistent diffuse opacities in the left hemithorax with possible pleural effusion and underlying consolidative process. Increasing patchy density throughout the right lung. She's been afebrile. Hemodynamically stable. She admits to craving cigarettes currently. NicoDerm patch will be applied. White count 7.8. Hemoglobin 9.3. Platelet count 107. Sodium 1:30. Potassium 4.5. Bicarb 14. BUN 64. Creatinine 2.14. C-reactive protein 17.6 Objective - Vital Signs Vital signs: Vital Signs Temp 97.9 F 10/07/21 20:40 Pulse 92 10/08/21 09:25 Resp 19 10/08/21 03:30 BP 103/64 10/08/21 03:30 Pulse Ox 95 10/08/21 09:05 Intake & Output 10/07/21 10/08/21 10/08/21 18:59 06:59 18:59 Intake Total 1330 360 Output Total 450 800 Balance 880 -800 360 Intake: IV 10 Invasive Line 4 10 Intake, IV Titration 300 Amount Azithromycin 500 mg In 250 Sodium Chloride 0.9% 250 ml @ 250 mls/hr IVPB DAILY [facility] Rx#:[id number] cefTRIAXone 2 gm In 50 Sodium Chloride 0.9% 50 ml @ 100 mls/hr IVPB Q24HR [facility] Rx#:[id number] Oral 1020 360 Output: Urine 450 800 Other: # Voids 1 - Exam GENERAL EXAM: Alert, pleasant, obese 55-year-old female, appears older than stated age, on 5 L nasal cannula, comfortable in no apparent distress. HEAD: Normocephalic. EYES: Normal reaction of pupils, equal size. NOSE: Clear with pink turbinates. THROAT: No erythema or exudates. NECK: No masses, no JVD. CHEST: No chest wall deformity. LUNGS: Equal air entry with bilateral scattered rhonchi, end expiratory wheeze. CVS: S1 and S2 normal with no audible murmur, regular rhythm. ABDOMEN: No hepatosplenomegaly, normal bowel sounds, no guarding or rigidity. SPINE: No scoliosis or deformity SKIN: No rashes CENTRAL NERVOUS SYSTEM: No focal deficits, tone is normal in all 4 extremities. EXTREMITIES: There is no peripheral edema. No clubbing, no cyanosis. Peripheral pulses are intact. - Labs CBC & Chem 7: 10/08/21 06:38 10/08/21 06:38 Labs: Abnormal Lab Results - Last 24 Hours (Table) 10/07/21 10/07/21 10/07/21 Range/Units 11:11 11:51 12:00 RBC (3.80-5.40) m/uL Hgb (11.4-16.0) gm/dL Hct (34.0-46.0) % Plt Count (150-450) k/uL Sodium (137-145) mmol/L Carbon Dioxide (22-30) mmol/L BUN (7-17) mg/dL Creatinine (0.52-1.04) mg/dL Glucose (74-99) mg/dL POC Glucose (mg/dL) 153 H (75-99) mg/dL Calcium (8.4-10.2) mg/dL Iron 10 L (50-170) ug/dL Transferrin 160.0 L (204.0-354.0) mg/dL C-Reactive Protein (<1.0) mg/dL Vitamin B12 1439.0 H (200.0-944.0) pg/mL Urine Appearance Cloudy H (Clear) Urine Protein 1+ H (Negative) Ur Squamous Epith Cells 7 H (0-4) /hpf Urine Bacteria Rare H (None) /hpf Hyaline Casts 13 H (0-2) /lpf Urine Mucus Rare H (None) /hpf 10/07/21 10/07/21 10/08/21 Range/Units 16:18 20:14 06:06 RBC (3.80-5.40) m/uL Hgb (11.4-16.0) gm/dL Hct (34.0-46.0) % Plt Count (150-450) k/uL Sodium (137-145) mmol/L Carbon Dioxide (22-30) mmol/L BUN (7-17) mg/dL Creatinine (0.52-1.04) mg/dL Glucose (74-99) mg/dL POC Glucose (mg/dL) 243 H 159 H 155 H (75-99) mg/dL Calcium (8.4-10.2) mg/dL Iron (50-170) ug/dL Transferrin (204.0-354.0) mg/dL C-Reactive Protein (<1.0) mg/dL Vitamin B12 (200.0-944.0) pg/mL Urine Appearance (Clear) Urine Protein (Negative) Ur Squamous Epith Cells (0-4) /hpf Urine Bacteria (None) /hpf Hyaline Casts (0-2) /lpf Urine Mucus (None) /hpf 0420/22 04/20/22 Range/Units 06:38 06:38 RBC 3.29 L (3.80-5.40) m/uL Hgb 9.3 L (11.4-16.0) gm/dL Hct 29.6 L (34.0-46.0) % Plt Count 107 L (150-450) k/uL Sodium 130 L (137-145) mmol/L Carbon Dioxide 14 L (22-30) mmol/L BUN 64 H (7-17) mg/dL Creatinine 2.14 H (0.52-1.04) mg/dL Glucose 132 H (74-99) mg/dL POC Glucose (mg/dL) (75-99) mg/dL Calcium 7.6 L (8.4-10.2) mg/dL Iron (50-170) ug/dL Transferrin (204.0-354.0) mg/dL C-Reactive Protein 17.6 H (<1.0) mg/dL Vitamin B12 (200.0-944.0) pg/mL Urine Appearance (Clear) Urine Protein (Negative) Ur Squamous Epith Cells (0-4) /hpf Urine Bacteria (None) /hpf Hyaline Casts (0-2) /lpf Urine Mucus (None) /hpf Microbiology - Last 24 Hours (Table) 10/06/21 15:10 Blood Culture - Preliminary Blood No Growth after 24 hours 10/06/21 15:05 Blood Culture - Preliminary Blood No Growth after 24 hours Assessment and Plan Assessment: 1 Acute hypoxemic respiratory failure secondary to acute community acquired bilateral pneumonia 2 Acute exacerbation of COPD secondary to above 3 Chronic and ongoing tobacco dependence 4 History of lung cancer status post chemo/radiation completed and February 2021. Originally diagnosed in 2018. Plan is for PET scan in November 2021 5 History of protein C&S deficiency 6 History of DVT/PE, anticoagulated with warfarin 7 Hyperlipidemia 8 Hypothyroidism 9 History of seizure disorder 10 History of depression Plan: The patient was seen and evaluated Chest x-ray and labs reviewed Continue antibiotics, bronchodilators May require BiPAP support The patient is craving cigarettes, NicoDerm patch applied Educated regarding the importance of complete smoking cessation Prognosis is guarded We will continue to follow I have personally seen and examined the patient, performed the documentation and the assessment and plan as written. Number of minutes spent on the visit: 10.
[2021-10-08 12:13] LABS: Glucose,Whole Blood 234 mg/dL (75-99)
[2021-10-08] MEDS: SODIUM CHLORIDE 0.45% 1,000 ML with SODIUM BICARB (1 MEQ/ML) 150 ML IV SCH ×2 (12:23)
--- NOTE | 2021-10-08 12:42 | P.PN ---
Subjective Progress Note Date: 10/08/21 HISTORY OF PRESENT ILLNESS: This is a 55-year-old female with a past medical history significant for non- small cell lung cancer, COPD, and DVT with protein C&S deficiency on long-term anticoagulation with Lovenox. 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 We have been asked to see the patient in consultation for atrial flutter. Patient examined at the bedside. patient presented to the hospital with a chief complaint of shortness of breath. The patient was found to be in a flutter with RVR yesterday. The patient denies having a previous history of atrial flutter. The patient received metoprolol IV push with no improvement in her heart rate. She was since started on a Cardizem drip which has been discontinued this morning per nursing. The patient is already anticoagulated with Lovenox. She states she was previously on Coumadin and had difficulty regulating her INR so she was switched to Lovenox injections. * EKG reveals atrial flutter with RVR * Chest xray appropriate opacification of the left lung field. Correlate for pneumonia. Continued follow-up is recommended. * Laboratory data: WBC 8.8. Hemoglobin 9.4. Platelet count 92. Sodium 132. Potassium 4.8. BUN 49. Creatinine 2.22. * Current home cardiac medications include Lipitor 40 mg daily, Lasix 80 mg every 48 hours, 40 mg every 48 hours, aspirin 325 mg at night, and Lovenox 200 mg subcu daily * Most recent echocardiogram obtained in October 2020 revealed ejection fraction 55- 60%, trace MR, trace TR 10/08/2021 Patient examined this morning at the bedside. Patient denies chest pain or pressure. Denies palpitations. Telemetry reveals sinus mechanism. Blood pressure 102/65. PHYSICAL EXAM: VITAL SIGNS: Reviewed. GENERAL: Well-developed in no acute distress. HEENT: Head is normocephalic. Pupils are equal, round. Sclerae anicteric. Mucous membranes of the mouth are moist. Neck supple. No JVD or thyromegaly LUNGS: Respirations even and unlabored. Lungs with rhonchi bilaterally. HEART: Regular rate and rhythm. S1 and S2 heard. ABDOMEN: Soft. Nondistended. Nontender. EXTREMITIES: Normal range of motion. No clubbing or cyanosis. Peripheral pulses intact. No lower extremity edema NEUROLOGIC: Awake and alert. Oriented x 3. ASSESSMENT: Shortness of breath Pneumonia History of non-small cell lung cancer with previous chemo and radiation New onset paroxysmal typical atrial flutter with RVR History of protein C&S deficiency, on anticoagulation with Lovenox History of DVT PLAN: 2-D echo ordered. Await results Continue current dose of Cardizem. Continue to monitor blood pressure. Patient may need a decreased dose of Cardizem pending her blood pressure trends. Continue telemetry monitoring Continue Lovenox Further recommendations pending patient course Nurse practitioner note has been reviewed by physician. Signing provider agrees with the documented findings, assessment, and plan of care. Objective - Vital Signs Vital signs: Vital Signs Temp 98.1 F 10/08/21 09:50 Pulse 94 10/08/21 12:26 Resp 20 10/08/21 09:50 BP 102/65 10/08/21 09:50 Pulse Ox 86 L 10/08/21 09:50 Intake & Output 10/07/21 10/08/21 10/08/21 18:59 06:59 18:59 Intake Total 1330 360 Output Total 450 800 Balance 880 -800 360 Intake: IV 10 Invasive Line 4 10 Intake, IV Titration 300 Amount Azithromycin 500 mg In 250 Sodium Chloride 0.9% 250 ml @ 250 mls/hr IVPB DAILY [facility] Rx#:[id number] cefTRIAXone 2 gm In 50 Sodium Chloride 0.9% 50 ml @ 100 mls/hr IVPB Q24HR [facility] Rx#:[id number] Oral 1020 360 Output: Urine 450 800 Other: # Voids 1 - Labs CBC & Chem 7: 10/08/21 06:38 10/08/21 06:38 Labs: Abnormal Lab Results - Last 24 Hours (Table) 10/07/21 10/07/21 10/07/21 Range/Units 11:11 12:00 16:18 RBC (3.80-5.40) m/uL Hgb (11.4-16.0) gm/dL Hct (34.0-46.0) % Plt Count (150-450) k/uL Sodium (137-145) mmol/L Carbon Dioxide (22-30) mmol/L BUN (7-17) mg/dL Creatinine (0.52-1.04) mg/dL Glucose (74-99) mg/dL POC Glucose (mg/dL) 243 H (75-99) mg/dL Calcium (8.4-10.2) mg/dL Iron 10 L (50-170) ug/dL Transferrin 160.0 L (204.0-354.0) mg/dL C-Reactive Protein (<1.0) mg/dL Vitamin B12 1439.0 H (200.0-944.0) pg/mL Urine Appearance Cloudy H (Clear) Urine Protein 1+ H (Negative) Ur Squamous Epith Cells 7 H (0-4) /hpf Urine Bacteria Rare H (None) /hpf Hyaline Casts 13 H (0-2) /lpf Urine Mucus Rare H (None) /hpf 10/07/21 10/08/21 10/08/21 Range/Units 20:14 06:06 06:38 RBC 3.29 L (3.80-5.40) m/uL Hgb 9.3 L (11.4-16.0) gm/dL Hct 29.6 L (34.0-46.0) % Plt Count 107 L (150-450) k/uL Sodium (137-145) mmol/L Carbon Dioxide (22-30) mmol/L BUN (7-17) mg/dL Creatinine (0.52-1.04) mg/dL Glucose (74-99) mg/dL POC Glucose (mg/dL) 159 H 155 H (75-99) mg/dL Calcium (8.4-10.2) mg/dL Iron (50-170) ug/dL Transferrin (204.0-354.0) mg/dL C-Reactive Protein (<1.0) mg/dL Vitamin B12 (200.0-944.0) pg/mL Urine Appearance (Clear) Urine Protein (Negative) Ur Squamous Epith Cells (0-4) /hpf Urine Bacteria (None) /hpf Hyaline Casts (0-2) /lpf Urine Mucus (None) /hpf 10/08/21 10/08/21 Range/Units 06:38 11:58 RBC (3.80-5.40) m/uL Hgb (11.4-16.0) gm/dL Hct (34.0-46.0) % Plt Count (150-450) k/uL Sodium 130 L (137-145) mmol/L Carbon Dioxide 14 L (22-30) mmol/L BUN 64 H (7-17) mg/dL Creatinine 2.14 H (0.52-1.04) mg/dL Glucose 132 H (74-99) mg/dL POC Glucose (mg/dL) 234 H (75-99) mg/dL Calcium 7.6 L (8.4-10.2) mg/dL Iron (50-170) ug/dL Transferrin (204.0-354.0) mg/dL C-Reactive Protein 17.6 H (<1.0) mg/dL Vitamin B12 (200.0-944.0) pg/mL Urine Appearance (Clear) Urine Protein (Negative) Ur Squamous Epith Cells (0-4) /hpf Urine Bacteria (None) /hpf Hyaline Casts (0-2) /lpf Urine Mucus (None) /hpf Microbiology - Last 24 Hours (Table) 10/06/21 15:10 Blood Culture - Preliminary Blood No Growth after 24 hours 10/06/21 15:05 Blood Culture - Preliminary Blood No Growth after 24 hours
--- NOTE | 2021-10-08 13:54 | P.PN ---
Subjective Patient is seen for follow-up for acute kidney injury. 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 Patient did have fever along with shortness of breath on initial admission. She is being treated for pneumonia. Started on IV fluids yesterday for metabolic acidosis. Blood pressure had been low with systolic as low as 88 mmHg. This morning patient is complaining of increased shortness of breath. Serum creatinine is stable at 2.1 mg/dL. Urine output 12 50 mL over 24 hours. Objective - Vital Signs Vital signs: Vital Signs Temp 98.1 F 10/08/21 09:50 Pulse 94 10/08/21 12:26 Resp 20 10/08/21 09:50 BP 102/65 10/08/21 09:50 Pulse Ox 86 L 10/08/21 09:50 Intake & Output 10/07/21 10/08/21 10/08/21 18:59 06:59 18:59 Intake Total 1330 360 Output Total 450 800 Balance 880 -800 360 Intake: IV 10 Invasive Line 4 10 Intake, IV Titration 300 Amount Azithromycin 500 mg In 250 Sodium Chloride 0.9% 250 ml @ 250 mls/hr IVPB DAILY [facility] Rx#:[id number] cefTRIAXone 2 gm In 50 Sodium Chloride 0.9% 50 ml @ 100 mls/hr IVPB Q24HR [facility] Rx#:[id number] Oral 1020 360 Output: Urine 450 800 Other: # Voids 1 - Exam Patient is mildly short of breath. Not in any acute distress Examination of the heart S1 and S2 Exertion lungs bilateral breath sounds are heard decreased breath sounds at the bases Abdomen is soft nontender Examination lower ex Mittie shows no significant edema CORE FINISHER exam grossly intact - Labs CBC & Chem 7: 10/08/21 06:38 10/08/21 06:38 Labs: Abnormal Lab Results - Last 24 Hours (Table) 10/07/21 10/07/21 10/07/21 Range/Units 11:11 16:18 20:14 RBC (3.80-5.40) m/uL Hgb (11.4-16.0) gm/dL Hct (34.0-46.0) % Plt Count (150-450) k/uL Sodium (137-145) mmol/L Carbon Dioxide (22-30) mmol/L BUN (7-17) mg/dL Creatinine (0.52-1.04) mg/dL Glucose (74-99) mg/dL POC Glucose (mg/dL) 243 H 159 H (75-99) mg/dL Calcium (8.4-10.2) mg/dL Iron 10 L (50-170) ug/dL Transferrin 160.0 L (204.0-354.0) mg/dL C-Reactive Protein (<1.0) mg/dL Vitamin B12 1439.0 H (200.0-944.0) pg/mL 10/08/21 10/08/21 10/08/21 Range/Units 06:06 06:38 06:38 RBC 3.29 L (3.80-5.40) m/uL Hgb 9.3 L (11.4-16.0) gm/dL Hct 29.6 L (34.0-46.0) % Plt Count 107 L (150-450) k/uL Sodium 130 L (137-145) mmol/L Carbon Dioxide 14 L (22-30) mmol/L BUN 64 H (7-17) mg/dL Creatinine 2.14 H (0.52-1.04) mg/dL Glucose 132 H (74-99) mg/dL POC Glucose (mg/dL) 155 H (75-99) mg/dL Calcium 7.6 L (8.4-10.2) mg/dL Iron (50-170) ug/dL Transferrin (204.0-354.0) mg/dL C-Reactive Protein 17.6 H (<1.0) mg/dL Vitamin B12 (200.0-944.0) pg/mL 10/08/21 Range/Units 11:58 RBC (3.80-5.40) m/uL Hgb (11.4-16.0) gm/dL Hct (34.0-46.0) % Plt Count (150-450) k/uL Sodium (137-145) mmol/L Carbon Dioxide (22-30) mmol/L BUN (7-17) mg/dL Creatinine (0.52-1.04) mg/dL Glucose (74-99) mg/dL POC Glucose (mg/dL) 234 H (75-99) mg/dL Calcium (8.4-10.2) mg/dL Iron (50-170) ug/dL Transferrin (204.0-354.0) mg/dL C-Reactive Protein (<1.0) mg/dL Vitamin B12 (200.0-944.0) pg/mL Microbiology - Last 24 Hours (Table) 10/06/21 15:10 Blood Culture - Preliminary Blood No Growth after 24 hours 10/06/21 15:05 Blood Culture - Preliminary Blood No Growth after 24 hours Assessment and Plan Assessment: 1. Acute kidney injury, ATN associated with hypoperfusion and underlying in fection. Rule out urine retention. Check urine analysis. No hydronephrosis noted on ultrasound. 2. Non-gap metabolic acidosis associated with acute kidney injury 3. History of non-small cell lung cancer status post chemotherapy and radiation therapy 4. Atrial flutter status post Cardizem drip 5. History of DVT/PE with protein C and S deficiency Plan: Change IV fluids to half-normal saline with 3 A of sodium bicarb as serum sodium is slightly lower today. Lasix IV 1 Repeat labs in a.m. Continue antibiotics and bronchodilators
--- NOTE | 2021-10-08 14:22 | P.PN ---
Subjective Progress Note Date: 10/08/21 Seen this am, patient is in distress and hypoxic, team is at bedside. Objective - Vital Signs Vital signs: Vital Signs Temp 98.1 F 10/08/21 09:50 Pulse 94 10/08/21 12:26 Resp 20 10/08/21 09:50 BP 102/65 10/08/21 09:50 Pulse Ox 86 L 10/08/21 09:50 Intake & Output 10/07/21 10/08/21 10/08/21 18:59 06:59 18:59 Intake Total 1330 360 Output Total 450 800 Balance 880 -800 360 Intake: IV 10 Invasive Line 4 10 Intake, IV Titration 300 Amount Azithromycin 500 mg In 250 Sodium Chloride 0.9% 250 ml @ 250 mls/hr IVPB DAILY [facility] Rx#:[id number] cefTRIAXone 2 gm In 50 Sodium Chloride 0.9% 50 ml @ 100 mls/hr IVPB Q24HR [facility] Rx#:[id number] Oral 1020 360 Output: Urine 450 800 Other: # Voids 1 - Exam - Constitutional General appearance: cooperative, mild distress, obese - EENT Eyes: anicteric sclerae, EOMI ENT: hearing grossly normal, normal oropharynx - Neck Neck: no lymphadenopathy - Respiratory Respiratory: Increased effort and hypoxic right: diminished, left: rhonchi, w heezing - Cardiovascular Rhythm: irregularly irregular Heart sounds: normal: S1, S2 Abnormal Heart Sounds: no systolic murmur, no diastolic murmur, no rub, no S3 Gallop, no S4 Gallop, no click, no other leg Peripheral Edema: bilateral: None - Gastrointestinal General gastrointestinal: no absent bowel sounds, no decreased bowel sounds, no distended, no hepatomegaly, no hyperactive bowel sounds, normal bowel sounds, no organomegaly, no rigid, no scaphoid, soft, no splenomegaly, no tenderness, no umbilical hernia, no ventral hernia - Integumentary Integumentary: normal - Neurologic Neurologic: CNII-XII intact - Musculoskeletal Musculoskeletal: generalized weakness, strength equal bilaterally - Psychiatric Psychiatric: A&O x's 3, appropriate affect, intact judgment & insight - Labs CBC & Chem 7: 10/08/21 06:38 10/08/21 06:38 Labs: Abnormal Lab Results - Last 24 Hours (Table) 10/07/21 10/07/21 10/07/21 Range/Units 11:11 16:18 20:14 RBC (3.80-5.40) m/uL Hgb (11.4-16.0) gm/dL Hct (34.0-46.0) % Plt Count (150-450) k/uL Sodium (137-145) mmol/L Carbon Dioxide (22-30) mmol/L BUN (7-17) mg/dL Creatinine (0.52-1.04) mg/dL Glucose (74-99) mg/dL POC Glucose (mg/dL) 243 H 159 H (75-99) mg/dL Calcium (8.4-10.2) mg/dL Iron 10 L (50-170) ug/dL Transferrin 160.0 L (204.0-354.0) mg/dL C-Reactive Protein (<1.0) mg/dL Vitamin B12 1439.0 H (200.0-944.0) pg/mL 10/08/21 10/08/21 10/08/21 Range/Units 06:06 06:38 06:38 RBC 3.29 L (3.80-5.40) m/uL Hgb 9.3 L (11.4-16.0) gm/dL Hct 29.6 L (34.0-46.0) % Plt Count 107 L (150-450) k/uL Sodium 130 L (137-145) mmol/L Carbon Dioxide 14 L (22-30) mmol/L BUN 64 H (7-17) mg/dL Creatinine 2.14 H (0.52-1.04) mg/dL Glucose 132 H (74-99) mg/dL POC Glucose (mg/dL) 155 H (75-99) mg/dL Calcium 7.6 L (8.4-10.2) mg/dL Iron (50-170) ug/dL Transferrin (204.0-354.0) mg/dL C-Reactive Protein 17.6 H (<1.0) mg/dL Vitamin B12 (200.0-944.0) pg/mL 10/08/21 Range/Units 11:58 RBC (3.80-5.40) m/uL Hgb (11.4-16.0) gm/dL Hct (34.0-46.0) % Plt Count (150-450) k/uL Sodium (137-145) mmol/L Carbon Dioxide (22-30) mmol/L BUN (7-17) mg/dL Creatinine (0.52-1.04) mg/dL Glucose (74-99) mg/dL POC Glucose (mg/dL) 234 H (75-99) mg/dL Calcium (8.4-10.2) mg/dL Iron (50-170) ug/dL Transferrin (204.0-354.0) mg/dL C-Reactive Protein (<1.0) mg/dL Vitamin B12 (200.0-944.0) pg/mL Microbiology - Last 24 Hours (Table) 10/06/21 15:10 Blood Culture - Preliminary Blood No Growth after 24 hours 10/06/21 15:05 Blood Culture - Preliminary Blood No Growth after 24 hours Assessment and Plan Plan: Chest x-ray: report reviewed US - abdomen: report reviewed Assessment and Plan (1) Acute respiratory distress Current Visit: Yes Status: Acute Priority: High Code(s): R06.03 - ACUTE RESPIRATORY DISTRESS SNOMED Code(s): 375655771 (2) Lung cancer Current Visit: Yes Status: Acute Priority: High Code(s): C34.90 - MALIGNANT NEOPLASM OF UNSP PART OF UNSP BRONCHUS OR LUNG SNOMED Code(s): 009386528 (3) Bicytopenia Current Visit: Yes Status: Acute Priority: High Code(s): D75.89 - OTHER SPECIFIED DISEASES OF BLOOD AND BLOOD-FORMING ORGANS SNOMED Code(s): 44641222 Plan: Pt admitted and being treated for pneumonia/COPD exacerbation. Pancultures are pending. Empiric abx. Pulm and IM mgmt. Her breathing is requiring bipap and she was in distress with hi flow today Pulmonary following She remains on full dose AC therapy for history hypercoagulable state Renal function decreased, lovenox dosed per kidneys and nephrology following. Pt is on surveillance for NSCLC, due for 4mo f/u. Will wait for treatment of her current condition then plan scans and f/u Pt baseline Hgb in 9-10's. Hx of iron deficiency, will check iron studies. Plt baseline is 90-100K. Hx DVT/PE 1995, lupus anticoagulant +. Ok to cont therapeutic dose lovenox.
--- NOTE | 2021-10-08 15:07 | CA ---
Transthoracic Echo Report Name: Natali Royal Age: 55 Gender: F : 1965 Exam Date: 10/07/2021 09:21 Exam Location: Echo Lab Ht (in): 62 Wt (lb): 296 Ordering Physician: Janice Roche DO Attending/Referring Phys: Lapper Marisela Noyola RDCS Procedure CPT: Indications: chf Cardiac Hx: Technical Quality: Fair Contrast 1: Total Dose (mL): Contrast 2: Total Dose (mL): MEASUREMENTS (Male / Female) Normal Values 2D ECHO LV Diastolic Diameter PLAX 3.7 cm 4.2 - 5.9 / 3.9 - 5.3 cm LV Systolic Diameter PLAX 3.1 cm IVS Diastolic Thickness 1.3 cm 0.6 - 1.0 / 0.6 - 0.9 cm LVPW Diastolic Thickness 1.2 cm 0.6 - 1.0 / 0.6 - 0.9 cm LV Relative Wall Thickness 0.7 RV Internal Dim ED PLAX 3.0 cm M-MODE Aortic Root Diameter MM 2.8 cm MV E Point Septal Separation 0.6 cm AV Cusp Separation MM 1.8 cm DOPPLER AV Peak Velocity 184.6 cm/s AV Peak Gradient 13.6 mmHg MV Area PHT 3.1 cm Mitral E Point Velocity 154.8 cm/s Mitral A Point Velocity 136.4 cm/s Mitral E to A Ratio 1.1 MV Deceleration Time 248.5 ms MV E' Velocity 8.4 cm/s Mitral E to MV E' Ratio 18.5 TR Peak Velocity 231.1 cm/s TR Peak Gradient 21.4 mmHg Right Ventricular Systolic Press 36.4 mmHg FINDINGS Left Ventricle Mildly increased septal wall thickness. Mildly increased posterior wall thickness. Left ventricular ejection fraction is estimated at 55-60 %. Right Ventricle The right ventricle is normal in size and function. Mild pulmonary hypertension. Right Atrium The right atrium is normal in size. Left Atrium The left atrium is normal in size. Mitral Valve Mitral valve thickened. Mild to moderate mitral regurgitation. MAC Aortic Valve Trileaflet aortic valve. Tricuspid Valve Structurally normal tricuspid valve without significant stenosis. Pulmonary artery systolic pressure is normal. Pulmonic Valve Trace to mild pulmonic regurgitation. Pericardium Normal pericardium without effusion. Aorta Normal aortic root dimension. CONCLUSIONS #1. Mild left ventricular concentric hypertrophy. #2. Thickening of the mitral valve with the alert calcification. There is mild to moderate mitral regurgitation. #3. Ejection fraction is about 55-60%. #4. There is no pericardial effusion Previewed by: Dr. Yamila Benjamin MD (Electronically Signed) Final Date: 07 October 2021 12:20
[2021-10-08] MEDS: INSULIN ASPART (NovoLOG) 100 UNIT/ML VIAL SQ SCH ×3 (15:56→20:27)
--- NOTE | 2021-10-08 16:27 | P.PN ---
Subjective Progress Note Date: 10/08/21 History of present illness per H&P: Patient is a 55 yo CF patient of Dr. 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 In the ED she underwent an extensive evaluation. On arrival her pulse was 118 and respirations are up at 25. Laboratory analysis showed WBC 13, PT 14.7, INR 1.4 and ptt 84.8, sodium 133, bun 36, and cr 1.93. She was started on antibiotics. Her CXR demonstrated complete haziness of the left hemithorax. Her HR then increased and she was given a 1L bolus and pain medications. Patient seen and examined at bedside. She reports that she went to the gathering on Wednesday. By Wednesday she started having significant shortness breath. She reports that she's had fevers up to 102.7 at home. It is worse with movement and better with rest, however it is also exacerbated by lying flat. She has a dry nonproductive cough. She reports she got her cold, flu, and pneumonia shot. She is having a hard time eating because she is so winded. She is feeling very tired and overall weak. She reports she has been taking all medications as prescribed and has not missed any doses of her Lovenox. 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 Interval history: 10/08 patient was seen and examined at bedside. She is still short of breath she is currently in the BiPAP. Objective - Vital Signs Vital signs: Vital Signs Temp 98.1 F 10/08/21 09:50 Pulse 75 10/08/21 15:14 Resp 20 10/08/21 09:50 BP 102/65 10/08/21 09:50 Pulse Ox 95 10/08/21 14:59 Intake & Output 10/07/21 10/08/21 10/08/21 18:59 06:59 18:59 Intake Total 1330 810 Output Total 450 800 Balance 880 -800 810 Intake: IV 10 Invasive Line 4 10 Intake, IV Titration 300 450 Amount Azithromycin 500 mg In 250 250 Sodium Chloride 0.9% 250 ml @ 250 mls/hr IVPB DAILY [facility] Rx#:[id number] Dextrose 5% in Water 1, 150 000 ml @ 50 mls/hr IV . Q23H [facility] with Sodium Bicarb (1 Meq/ml) 150 ml Rx#:[id number] cefTRIAXone 2 gm In 50 50 Sodium Chloride 0.9% 50 ml @ 100 mls/hr IVPB Q24HR [facility] Rx#:[id number] Oral 1020 360 Output: Urine 450 800 Other: # Voids 1 - Exam General: non toxic, no distress, appears at stated age Derm: warm, dry Head: atraumatic, normocephalic, symmetric Eyes: EOMI, no lid lag, anicteric sclera, pupils equal round reactive to light ENT: Nose and ears atraumatic, no thrush, no pharyngeal erythema Neck: No thyromegaly, no cervical lymphadenopathy, trachea midline, supple Mouth: no lip lesion, mucus membranes moist Cardiovascular: S1S2 reg, no murmur, positive posterior tibial pulse bilateral, no edema, capillary refill less than 2 seconds Lungs: clear to ascultation bilateral, no ronchi, no rales, no wheeze, no accessory muscle use Abdominal: soft, nontender to palpation, no guarding, no appreciable organomegaly, normal bowel sounds Ext: no gross muscle atrophy, muscle strength muscle strength 5 out of 5 in all 4 extremities, no contractures Neuro: CN II-XI grossly intact, light touch intact all 4 extremities, finger to nose within normal limits, Psych: Alert, oriented, appropriate affect - Labs CBC & Chem 7: 10/08/21 06:38 10/08/21 06:38 Labs: Abnormal Lab Results - Last 24 Hours (Table) 10/07/21 10/07/21 10/07/21 Range/Units 11:11 11:11 16:18 RBC (3.80-5.40) m/uL Hgb (11.4-16.0) gm/dL Hct (34.0-46.0) % Plt Count (150-450) k/uL Sodium (137-145) mmol/L Carbon Dioxide (22-30) mmol/L BUN (7-17) mg/dL Creatinine (0.52-1.04) mg/dL Glucose (74-99) mg/dL POC Glucose (mg/dL) 243 H (75-99) mg/dL Calcium (8.4-10.2) mg/dL Iron 10 L (50-170) ug/dL Transferrin 160.0 L (204.0-354.0) mg/dL C-Reactive Protein (<1.0) mg/dL Vitamin B12 1439.0 H (200.0-944.0) pg/mL RBC Folate 856 H (280 - 791) ng/mL 10/07/21 10/08/21 10/08/21 Range/Units 20:14 06:06 06:38 RBC 3.29 L (3.80-5.40) m/uL Hgb 9.3 L (11.4-16.0) gm/dL Hct 29.6 L (34.0-46.0) % Plt Count 107 L (150-450) k/uL Sodium (137-145) mmol/L Carbon Dioxide (22-30) mmol/L BUN (7-17) mg/dL Creatinine (0.52-1.04) mg/dL Glucose (74-99) mg/dL POC Glucose (mg/dL) 159 H 155 H (75-99) mg/dL Calcium (8.4-10.2) mg/dL Iron (50-170) ug/dL Transferrin (204.0-354.0) mg/dL C-Reactive Protein (<1.0) mg/dL Vitamin B12 (200.0-944.0) pg/mL RBC Folate (280 - 791) ng/mL 10/08/21 10/08/21 Range/Units 06:38 11:58 RBC (3.80-5.40) m/uL Hgb (11.4-16.0) gm/dL Hct (34.0-46.0) % Plt Count (150-450) k/uL Sodium 130 L (137-145) mmol/L Carbon Dioxide 14 L (22-30) mmol/L BUN 64 H (7-17) mg/dL Creatinine 2.14 H (0.52-1.04) mg/dL Glucose 132 H (74-99) mg/dL POC Glucose (mg/dL) 234 H (75-99) mg/dL Calcium 7.6 L (8.4-10.2) mg/dL Iron (50-170) ug/dL Transferrin (204.0-354.0) mg/dL C-Reactive Protein 17.6 H (<1.0) mg/dL Vitamin B12 (200.0-944.0) pg/mL RBC Folate (280 - 791) ng/mL Microbiology - Last 24 Hours (Table) 10/06/21 15:10 Blood Culture - Preliminary Blood No Growth after 24 hours 10/06/21 15:05 Blood Culture - Preliminary Blood No Growth after 24 hours Assessment and Plan Assessment: #Acute hypoxic respiratory failure Due to left-sided pneumonia and acute exacerbation of COPD in the setting of non-small lung cancer Pulmonary following Continue antibiotics, ceftriaxone and Zithromax started 10/06/21 Sputum cultures and Gram stain Blood cultures: No growth to date Influenza and COVID-19 negative Pro calcitonin 4.09 Legionella urine antigen pending Continue antibiotics, systemic steroids, bronchodilators, pulmonary toilet, incentive spirometry Remains febrile, white blood cell count trending down #Ongoing tobacco abuse -Patient was counseled regarding smoking cessation. -She is on nicotine patch #Paroxysmal Atrial flutter, new diagnosis -Patient is already on full dose Lovenox for history of DVT Cardiology evaluated, transition to oral Cardizem TSH and echocardiogram #Elevated creatinine ,PIERCE Nephrology consultation - Avoid nephrotoxic agents - follow Cr -Renal ultrasound without obstruction Urine analysis #Anemia and thrombocytopenia, appears better than baseline Oncology following #Hyponatremia -Possibly secondary to poor solute intake versus fluid overload -Repeat in a.m. #Hx of venous thromboembolism, with protein C and protein S deficiency -Continue with Lovenox Chronic: GERD Seizure BLANCA TIA
[2021-10-08 16:33] LABS: Glucose,Whole Blood 170 mg/dL (75-99)
[2021-10-08] MEDS: MONTELUKAST 10 MG TAB PO SCH (17:59)
[2021-10-08 20:25] LABS: Glucose,Whole Blood 229 mg/dL (75-99)
[2021-10-08] MEDS: ASPIRIN 325 MG TAB PO SCH (20:27)
[2021-10-08] MEDS: GABAPENTIN 300 MG CAP PO SCH (20:27)
[2021-10-08] MEDS: PANTOPRAZOLE 40 MG TABLET PO SCH (20:28)
[2021-10-09 05:42] LABS: Glucose,Whole Blood 154 mg/dL (75-99)
[2021-10-09] MEDS: LEVOTHYROXINE 25 MCG TAB PO SCH (06:25)
[2021-10-09] MEDS: CITALOPRAM HYDROBROMIDE 20 MG TAB PO SCH (06:25)
[2021-10-09] MEDS: INSULIN ASPART (NovoLOG) 100 UNIT/ML VIAL SQ SCH ×4 (06:25→19:40)
[2021-10-09] MEDS: ATORVASTATIN 40 MG TAB PO SCH (06:26)
[2021-10-09] MEDS: IPRATROPIUM-ALBUTEROL 3 ML NEB INHALATION SCH ×4 (07:13→19:51)
[2021-10-09] MEDS: FORMOTEROL FUMARATE 20 MCG/2 ML NEBU INHALATION SCH ×2 (07:14→19:51)
[2021-10-09] MEDS: BUDESONIDE 1 MG/2 ML NEBU INHALATION SCH ×2 (07:14→19:52)
[2021-10-09] MEDS: methylPREDNISolone SOD SUCCI 125 MG/2 ML VIAL IV SCH ×3 (08:32→23:04)
[2021-10-09] MEDS: BACLOFEN 10 MG TAB PO SCH ×2 (08:33→19:40)
[2021-10-09] MEDS: DILTIAZEM CD 180 MG CAP.ER.24H PO SCH (08:33)
[2021-10-09] MEDS: NICOTINE 14MG/24HR PATCH TRANSDERM SCH (08:34)
[2021-10-09] MEDS: ENOXAPARIN 120 MG/0.8 ML SYRINGE SQ SCH (10:15)
[2021-10-09] MEDS: SODIUM CHLORIDE 0.45% 1,000 ML with SODIUM BICARB (1 MEQ/ML) 150 ML IV SCH ×2 (10:41)
--- NOTE | 2021-10-09 11:05 | P.PN ---
Subjective Progress Note Date: 10/09/21 Principal diagnosis: Shortness of breath. This a very pleasant 55-year-old female patient with a known history of lung cancer/adenocarcinoma diagnosed in 2017. She had initially had radiation and then subsequently had chemo/radiation that she completed in February 2021. She also has history of DVT/PE anti-coagulated with warfarin, protein C&S deficiency, TIA, seizure disorder, hypothyroidism, hyperlipidemia, COPD with chronic and ongoing tobacco dependence. No home oxygen. She follows with Dr. Maria in the outpatient setting and was being seen there yesterday when she was having complaints of increasing shortness of breath and chest heaviness. She was referred here for the same. She has had a nonproductive cough. She states she's had some fever and chills. Chest x-ray reveals diffuse opacities throughout the left lung. White count 8.8. Hemoglobin 9.4. Platelet count 92,000. Sodium 132. Potassium 4.8. Bicarbonate 13. BUN 42. Creatinine 2.22. Glucose 146. Influenza screen negative. COVID-19 screen negative. Pro- calcitonin 4.09. Troponin negative times one. ProBNP 3440. INR 1.4. Arterial blood gases on 32% FiO2 revealed a pO2 of 94, pCO2 29 and a pH of 7.36. He is seen today in consultation on the regular medical floor. She is currently sitting up in a chair at the bedside. Awake and alert in no acute distress. Maintaining O2 saturations up to 98% on 5 L/m per nasal cannula. Currently afebrile. Hemodynamically stable. She's been initiated on ceftriaxone and azithromycin. Continued on Singulair, Pulmicort and Perforomist inhalations, DuoNeb inhalations, IV Solu-Medrol. The patient is seen today 10/08/2021 in follow-up on the selective care unit. She is currently sitting up in a chair at the bedside. Awake and alert in no acute distress. She had just returned from the bathroom and without her oxygen her saturations were 81%. She is continued on 5 L with O2 saturations in the mid 90s. Chest x-ray continues to report reveal persistent diffuse opacities in the left hemithorax with possible pleural effusion and underlying consolidative process. Increasing patchy density throughout the right lung. She's been afeb rile. Hemodynamically stable. She admits to craving cigarettes currently. NicoDerm patch will be applied. White count 7.8. Hemoglobin 9.3. Platelet count 107. Sodium 1:30. Potassium 4.5. Bicarb 14. BUN 64. Creatinine 2.14. C-reactive protein 17.6 Progress note dated 10/09/2021. The patient is seen today in room 361. The patient remains on oxygen therapy. She is at 5 L. The patient states that her breathing is improved. No new labs today except for a glucose of 154. She did ask for a nicotine patch yesterday. Blood cultures are currently negative. Chest x-ray shows persistent diffuse opacification of left hemithorax, likely related to either pneumonia and/or pleural effusion. Chest ultrasound only showed a small amount of fluid. Objective - Vital Signs Vital signs: Vital Signs Temp 96.4 F L 10/09/21 08:00 Pulse 80 10/09/21 08:00 Resp 24 10/09/21 08:00 BP 128/73 10/09/21 08:00 Pulse Ox 94 L 10/09/21 08:00 Intake & Output 10/08/21 10/09/21 10/09/21 18:59 06:59 18:59 Intake Total 1410 120 Output Total 1100 2150 Balance 310 -2150 120 Intake: Intake, IV Titration 450 Amount Azithromycin 500 mg In 250 Sodium Chloride 0.9% 250 ml @ 250 mls/hr IVPB DAILY [facility] Rx#:[id number] Dextrose 5% in Water 1, 150 000 ml @ 50 mls/hr IV . Q23H [facility] with Sodium Bicarb (1 Meq/ml) 150 ml Rx#:[id number] cefTRIAXone 2 gm In 50 Sodium Chloride 0.9% 50 ml @ 100 mls/hr IVPB Q24HR [facility] Rx#:[id number] Oral 960 120 Output: Urine 1100 2150 Other: # Bowel Movements 0 - Exam No acute distress, oriented 3. Currently on nasal O2, at 6 L. Saturations are 94%. HEENT examination is grossly unremarkable. Neck supple. Full range of motion. No adenopathy thyromegaly or neck vein distention. Cardiovascular examination reveals regular rhythm rate. S1-S2 normal. No S3 or S4. No discernible murmur noted. Heart sounds are distant. Heart rate 80 bpm. Lungs reveal scattered rhonchi bilaterally, and diminished breath sounds in the left chest. Scattered wheezes are noted. No crackles. Abdomen soft bowel sounds are heard. No masses or tenderness. Extremities are intact. No cyanosis clubbing or edema. Skin is without rash or lesion. Neurologic examination is brief but nonfocal. - Labs CBC & Chem 7: 10/08/21 06:38 10/08/21 06:38 Labs: Abnormal Lab Results - Last 24 Hours (Table) 10/07/21 10/08/21 10/08/21 Range/Units 11:11 11:58 16:15 POC Glucose (mg/dL) 234 H 170 H (75-99) mg/dL RBC Folate 856 H (280 - 791) ng/mL 10/08/21 10/09/21 Range/Units 20:23 05:33 POC Glucose (mg/dL) 229 H 154 H (75-99) mg/dL RBC Folate (280 - 791) ng/mL Microbiology - Last 24 Hours (Table) 10/06/21 15:10 Blood Culture - Preliminary Blood No Growth after 48 hours 10/06/21 15:05 Blood Culture - Preliminary Blood No Growth after 48 hours Assessment and Plan Assessment: Acute hypoxemic respiratory failure secondary to community-acquired pneumonia. COPD exacerbation. Chronic and ongoing tobacco dependence. History of lung cancer, status post chemoradiation, completed, February 2021. The patient was diagnosed with lung cancer 2018. History of protein C&S deficiency. History of DVT/pulmonary embolism. Hyperlipidemia. Hypothyroidism. History of seizure disorder. History of depression. Plan: Plan dated 10/09/2021. The patient is seen and evaluated in room 361. She remains on Pulmicort, Perforomist, DuoNeb, Solu-Medrol, and Rocephin. Clinically, she does feel better today. We'll continue to follow the patient and make recommendations where appropriate. The patient did ask for a nicotine patch. It was applied. Additional recommendations and suggestions are forthcoming. Prognosis is guarded. We will continue to see the patient and make recommendations were appropriate. Post discharge, she'll return to see her own clinical technologist. Time with Patient: Less than 30
[2021-10-09 11:44] LABS: Glucose,Whole Blood 151 mg/dL (75-99)
--- NOTE | 2021-10-09 11:45 | P.PN ---
Subjective History of present illness per H&P: Patient is a 55 yo CF patient of Dr. 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 In the ED she underwent an extensive evaluation. On arrival her pulse was 118 and respirations are up at 25. Laboratory analysis showed WBC 13, PT 14.7, INR 1.4 and ptt 84.8, sodium 133, bun 36, and cr 1.93. She was started on antibiotics. Her CXR demonstrated complete haziness of the left hemithorax. Her HR then increased and she was given a 1L bolus and pain medications. Patient seen and examined at bedside. She reports that she went to the gathering on Wednesday. By Wednesday she started having significant shortness breath. She reports that she's had fevers up to 102.7 at home. It is worse with movement and better with rest, however it is also exacerbated by lying flat. She has a dry nonproductive cough. She reports she got her cold, flu, and pneumonia shot. She is having a hard time eating because she is so winded. She is feeling very tired and overall weak. She reports she has been taking all medications as prescribed and has not missed any doses of her Lovenox. 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 Interval history: 10/08 patient was seen and examined at bedside. She is still short of breath with exertion she is currently on 6 L nasal cannula. Physical examination: General: non toxic, no distress, appears at stated age Derm: warm, dry Head: atraumatic, normocephalic, symmetric Eyes: EOMI, no lid lag, anicteric sclera, pupils equal round reactive to light ENT: Nose and ears atraumatic, no thrush, no pharyngeal erythema Neck: No thyromegaly, no cervical lymphadenopathy, trachea midline, supple Mouth: no lip lesion, mucus membranes moist Cardiovascular: S1S2 reg, no murmur, positive posterior tibial pulse bilateral, no edema, capillary refill less than 2 seconds Lungs: clear to ascultation bilateral, no ronchi, no rales, no wheeze, no accessory muscle use Abdominal: soft, nontender to palpation, no guarding, no appreciable organomegaly, normal bowel sounds Ext: no gross muscle atrophy, muscle strength muscle strength 5 out of 5 in all 4 extremities, no contractures Neuro: CN II-XI grossly intact, light touch intact all 4 extremities, finger to nose within normal limits, Psych: Alert, oriented, appropriate affect ssessment and Plan Assessment: #Acute hypoxic respiratory failure Due to left-sided pneumonia and acute exacerbation of COPD in the setting of non-small lung cancer Pulmonary following Continue antibiotics, ceftriaxone and Zithromax started 10/06/21 Sputum cultures and Gram stain Blood cultures: No growth to date Influenza and COVID-19 negative Pro calcitonin 4.09 Legionella urine antigen pending Continue antibiotics, systemic steroids, bronchodilators, pulmonary toilet, incentive spirometry Remains febrile, white blood cell count trending down #Ongoing tobacco abuse -Patient was counseled regarding smoking cessation. -She is on nicotine patch #Paroxysmal Atrial flutter, new diagnosis -Normal sinus rhythm -Patient is already on full dose Lovenox for history of DVT Cardiology evaluated, transition to oral Cardizem Normal TSH Echocardiogram: Mild left ventricular concentric hypertrophy Thickening of the mitral valve with mild to moderate mitral regurgitation. EF 55 6%. #Elevated creatinine ,PIERCE -Stable - Avoid nephrotoxic agents - follow Cr -Renal ultrasound without obstruction #Anemia and thrombocytopenia, appears better than baseline Oncology following #Hyponatremia -Possibly secondary to poor solute intake versus fluid overload -Repeat in a.m. #Hx of venous thromboembolism, with protein C and protein S deficiency -Continue with Lovenox Chronic: GERD Seizure BLANCA TIA Objective - Vital Signs Vital signs: Vital Signs Temp 96.4 F L 10/09/21 08:00 Pulse 80 10/09/21 11:14 Resp 24 10/09/21 08:00 BP 128/73 10/09/21 08:00 Pulse Ox 94 L 10/09/21 08:00 Intake & Output 10/08/21 10/09/21 10/09/21 18:59 06:59 18:59 Intake Total 1410 120 Output Total 1100 2150 Balance 310 -2150 120 Intake: Intake, IV Titration 450 Amount Azithromycin 500 mg In 250 Sodium Chloride 0.9% 250 ml @ 250 mls/hr IVPB DAILY [facility] Rx#:[id number] Dextrose 5% in Water 1, 150 000 ml @ 50 mls/hr IV . Q23H [facility] with Sodium Bicarb (1 Meq/ml) 150 ml Rx#:[id number] cefTRIAXone 2 gm In 50 Sodium Chloride 0.9% 50 ml @ 100 mls/hr IVPB Q24HR [facility] Rx#:[id number] Oral 960 120 Output: Urine 1100 2150 Other: # Bowel Movements 0 - Labs CBC & Chem 7: 10/08/21 06:38 10/08/21 06:38 Labs: Abnormal Lab Results - Last 24 Hours (Table) 10/07/21 10/08/21 10/08/21 Range/Units 11:11 11:58 16:15 POC Glucose (mg/dL) 234 H 170 H (75-99) mg/dL RBC Folate 856 H (280 - 791) ng/mL 10/08/21 10/09/21 Range/Units 20:23 05:33 POC Glucose (mg/dL) 229 H 154 H (75-99) mg/dL RBC Folate (280 - 791) ng/mL Microbiology - Last 24 Hours (Table) 10/06/21 15:10 Blood Culture - Preliminary Blood No Growth after 48 hours 10/06/21 15:05 Blood Culture - Preliminary Blood No Growth after 48 hours
[2021-10-09] MEDS: MONTELUKAST 10 MG TAB PO SCH (12:56)
--- NOTE | 2021-10-09 13:08 | P.PN ---
Subjective Patient is seen for follow-up for acute kidney injury. 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 Patient did have fever along with shortness of breath on initial admission. She is being treated for pneumonia. Status post IV Lasix yesterday Maintained on IV bicarb for metabolic acidosis. This morning patient is complaining of increased shortness of breath. Serum creatinine is stable at 2.1 mg/dL. Urine output 3250 mL over 24 hours. Objective - Vital Signs Vital signs: Vital Signs Temp 96.4 F L 10/09/21 08:00 Pulse 80 10/09/21 11:14 Resp 24 10/09/21 08:00 BP 128/73 10/09/21 08:00 Pulse Ox 94 L 10/09/21 08:00 Intake & Output 10/08/21 10/09/21 10/09/21 18:59 06:59 18:59 Intake Total 1410 120 Output Total 1100 2150 Balance 310 -2150 120 Intake: Intake, IV Titration 450 Amount Azithromycin 500 mg In 250 Sodium Chloride 0.9% 250 ml @ 250 mls/hr IVPB DAILY [facility] Rx#:[id number] Dextrose 5% in Water 1, 150 000 ml @ 50 mls/hr IV . Q23H [facility] with Sodium Bicarb (1 Meq/ml) 150 ml Rx#:[id number] cefTRIAXone 2 gm In 50 Sodium Chloride 0.9% 50 ml @ 100 mls/hr IVPB Q24HR [facility] Rx#:[id number] Oral 960 120 Output: Urine 1100 2150 Other: # Bowel Movements 0 - Exam Patient is mildly short of breath. Not in any acute distress Examination of the heart S1 and S2 Exertion lungs bilateral breath sounds are heard decreased breath sounds at the bases Abdomen is soft nontender Examination lower ex Mittie shows no significant edema CLINIC ASSISTANT exam grossly intact - Labs CBC & Chem 7: 10/08/21 06:38 10/08/21 06:38 Labs: Abnormal Lab Results - Last 24 Hours (Table) 10/07/21 10/08/21 10/08/21 Range/Units 11:11 16:15 20:23 POC Glucose (mg/dL) 170 H 229 H (75-99) mg/dL RBC Folate 856 H (280 - 791) ng/mL 10/09/21 10/09/21 Range/Units 05:33 11:42 POC Glucose (mg/dL) 154 H 151 H (75-99) mg/dL RBC Folate (280 - 791) ng/mL Microbiology - Last 24 Hours (Table) 10/06/21 15:10 Blood Culture - Preliminary Blood No Growth after 48 hours 10/06/21 15:05 Blood Culture - Preliminary Blood No Growth after 48 hours Assessment and Plan Assessment: 1. Acute kidney injury, ATN associated with hypoperfusion and underlying infection. Rule out urine retention. UA is benign. No hydronephrosis noted on ultrasound. 2. Non-gap metabolic acidosis associated with acute kidney injury 3. History of non-small cell lung cancer status post chemotherapy and radiation therapy 4. Atrial flutter status post Cardizem drip 5. History of DVT/PE with protein C and S deficiency 6. Pneumonia maintained on antibiotics Plan: Check labs today Check bladder scan Continue antibiotics Continue with the current dose of bicarb drip.
--- NOTE | 2021-10-09 13:20 | P.PN ---
Subjective Progress Note Date: 10/09/21 HISTORY OF PRESENT ILLNESS: This is a 55-year-old female with a past medical history significant for non- small cell lung cancer, COPD, and DVT with protein C&S deficiency on long-term anticoagulation with Lovenox. Patient does not follow with a agricultural adviser. We have been asked to see the patient in consultation for atrial flutter. Patient examined at the bedside. patient presented to the hospital with a chief complaint of shortness of breath. The patient was found to be in a flutter with RVR yesterday. The patient denies having a previous history of atrial flutter. The patient received metoprolol IV push with no improvement in her heart rate. She was since started on a Cardizem drip which has been discontinued this morning per nursing. The patient is already anticoagulated with Lovenox. She states she was previously on Coumadin and had difficulty regulating her INR so she was switched to Lovenox injections. * EKG reveals atrial flutter with RVR * Chest xray appropriate opacification of the left lung field. Correlate for pneumonia. Continued follow-up is recommended. * Laboratory data: WBC 8.8. Hemoglobin 9.4. Platelet count 92. Sodium 132. Potassium 4.8. BUN 49. Creatinine 2.22. * Current home cardiac medications include Lipitor 40 mg daily, Lasix 80 mg every 48 hours, 40 mg every 48 hours, aspirin 325 mg at night, and Lovenox 200 mg subcu daily * Most recent echocardiogram obtained in October 2020 revealed ejection fraction 55- 60%, trace MR, trace TR 10/08/2021 Patient examined this morning at the bedside. Patient denies chest pain or pressure. Denies palpitations. Telemetry reveals sinus mechanism. Blood pressure 102/65. 10/09/2021 Patient examined this morning at the bedside. Patient denies chest pain or pressure. Denies palpitations. Telemetry reveals sinus mechanism. Blood pressure 128/73. Echo reveals preserved LV function. PHYSICAL EXAM: VITAL SIGNS: Reviewed. GENERAL: Well-developed in no acute distress. HEENT: Head is normocephalic. Pupils are equal, round. Sclerae anicteric. Mucous membranes of the mouth are moist. Neck supple. No JVD or thyromegaly LUNGS: Respirations even and unlabored. Lungs with rhonchi bilaterally. HEART: Regular rate and rhythm. S1 and S2 heard. ABDOMEN: Soft. Nondistended. Nontender. EXTREMITIES: Normal range of motion. No clubbing or cyanosis. Peripheral pulses intact. No lower extremity edema NEUROLOGIC: Awake and alert. Oriented x 3. ASSESSMENT: Shortness of breath Pneumonia History of non-small cell lung cancer with previous chemo and radiation New onset paroxysmal typical atrial flutter with RVR History of protein C&S deficiency, on anticoagulation with Lovenox History of DVT PLAN: Continue current cardiac medications Continue Lovenox Stable from a cardiac standpoint We will sign off. Please reconsult if needed. Nurse practitioner note has been reviewed by physician. Signing provider agrees with the documented findings, assessment, and plan of care. Objective - Vital Signs Vital signs: Vital Signs Temp 97.6 F 10/09/21 12:00 Pulse 96 10/09/21 12:00 Resp 24 10/09/21 12:00 BP 120/76 10/09/21 12:00 Pulse Ox 90 L 10/09/21 12:00 Intake & Output 10/08/21 10/09/21 10/09/21 18:59 06:59 18:59 Intake Total 1410 120 Output Total 1100 2150 Balance 310 -2150 120 Intake: Intake, IV Titration 450 Amount Azithromycin 500 mg In 250 Sodium Chloride 0.9% 250 ml @ 250 mls/hr IVPB DAILY ZARIA Rx#:[id number] Dextrose 5% in Water 1, 150 000 ml @ 50 mls/hr IV . Q23H ZARIA with Sodium Bicarb (1 Meq/ml) 150 ml Rx#:[id number] cefTRIAXone 2 gm In 50 Sodium Chloride 0.9% 50 ml @ 100 mls/hr IVPB Q24HR ZARIA Rx#:[id number] Oral 960 120 Output: Urine 1100 2150 Other: # Bowel Movements 0 - Labs CBC & Chem 7: 10/08/21 06:38 10/08/21 06:38 Labs: Abnormal Lab Results - Last 24 Hours (Table) 10/07/21 10/08/21 10/08/21 Range/Units 11:11 16:15 20:23 POC Glucose (mg/dL) 170 H 229 H (75-99) mg/dL RBC Folate 856 H (280 - 791) ng/mL 10/09/21 10/09/21 Range/Units 05:33 11:42 POC Glucose (mg/dL) 154 H 151 H (75-99) mg/dL RBC Folate (280 - 791) ng/mL Microbiology - Last 24 Hours (Table) 10/06/21 15:10 Blood Culture - Preliminary Blood No Growth after 48 hours 10/06/21 15:05 Blood Culture - Preliminary Blood No Growth after 48 hours
[2021-10-09 13:59] LABS: Potassium 3.6 mmol/L (3.5-5.1)
[2021-10-09 16:06] LABS: Glucose,Whole Blood 185 mg/dL (75-99)
--- NOTE | 2021-10-09 18:45 | P.PN ---
Subjective Progress Note Date: 10/09/21 Remains on hi flow, creatinine 1.7 today Objective - Vital Signs Vital signs: Vital Signs Temp 97.4 F L 10/09/21 16:00 Pulse 92 10/09/21 16:00 Resp 24 10/09/21 16:00 BP 113/62 10/09/21 16:00 Pulse Ox 89 L 10/09/21 16:00 Intake & Output 10/08/21 10/09/21 10/09/21 18:59 06:59 18:59 Intake Total 1410 120 Output Total 1100 2150 1200 Balance 310 2150 -1080 Intake: Intake, IV Titration 450 Amount Azithromycin 500 mg In 250 Sodium Chloride 0.9% 250 ml @ 250 mls/hr IVPB DAILY ZARIA Rx#:[id number] Dextrose 5% in Water 1, 150 000 ml @ 50 mls/hr IV . Q23H ZARIA with Sodium Bicarb (1 Meq/ml) 150 ml Rx#:[id number] cefTRIAXone 2 gm In 50 Sodium Chloride 0.9% 50 ml @ 100 mls/hr IVPB Q24HR ZARIA Rx#:[id number] Oral 960 120 Output: Urine 1100 2150 1200 Other: # Bowel Movements 0 - Exam - Constitutional General appearance: cooperative, mild distress, obese - EENT Eyes: anicteric sclerae, EOMI ENT: hearing grossly normal, normal oropharynx - Neck Neck: no lymphadenopathy - Respiratory Respiratory: Increased effort and hypoxic right: diminished, left: rhonchi, wheezing - Cardiovascular Rhythm: irregularly irregular Heart sounds: normal: S1, S2 Abnormal Heart Sounds: no systolic murmur, no diastolic murmur, no rub, no S3 Gallop, no S4 Gallop, no click, no other leg Peripheral Edema: bilateral: None - Gastrointestinal General gastrointestinal: no absent bowel sounds, no decreased bowel sounds, no distended, no hepatomegaly, no hyperactive bowel sounds, normal bowel sounds, no organomegaly, no rigid, no scaphoid, soft, no splenomegaly, no tenderness, no umbilical hernia, no ventral hernia - Integumentary Integumentary: normal - Neurologic Neurologic: CNII-XII intact - Musculoskeletal Musculoskeletal: generalized weakness, strength equal bilaterally - Psychiatric Psychiatric: A&O x's 3, appropriate affect, intact judgment & insight - Labs CBC & Chem 7: 10/08/21 06:38 10/09/21 13:33 Labs: Abnormal Lab Results - Last 24 Hours (Table) 10/08/21 10/09/21 10/09/21 Range/Units 20:23 05:33 11:42 Chloride (98-107) mmol/L BUN (7-17) mg/dL Creatinine (0.52-1.04) mg/dL Glucose (74-99) mg/dL POC Glucose (mg/dL) 229 H 154 H 151 H (75-99) mg/dL Calcium (8.4-10.2) mg/dL 10/09/21 10/09/21 Range/Units 13:33 16:04 Chloride 109 H (98-107) mmol/L BUN 63 H (7-17) mg/dL Creatinine 1.71 H (0.52-1.04) mg/dL Glucose 142 H (74-99) mg/dL POC Glucose (mg/dL) 185 H (75-99) mg/dL Calcium 8.0 L (8.4-10.2) mg/dL Microbiology - Last 24 Hours (Table) 10/06/21 15:10 Blood Culture - Preliminary Blood No Growth after 72 hours 10/06/21 15:05 Blood Culture - Preliminary Blood No Growth after 72 hours Assessment and Plan Plan: Chest x-ray: report reviewed US - abdomen: report reviewed Assessment and Plan Acute respiratory distress Current Visit: Yes Status: Acute Priority: High Code(s): R06.03 - ACUTE RESPIRATORY DISTRESS SNOMED Code(s): 722933936 Lung cancer Current Visit: Yes Status: Acute Priority: High Code(s): C34.90 - MALIGNANT NEOPLASM OF UNSP PART OF UNSP BRONCHUS OR LUNG SNOMED Code(s): 790647504 Bicytopenia Current Visit: Yes Status: Acute Priority: High Code(s): D75.89 - OTHER SPECIFIED DISEASES OF BLOOD AND BLOOD-FORMING ORGANS SNOMED Code(s): 50296708 Plan: Pt admitted and being treated for pneumonia/COPD exacerbation. Pancultures are pending. Empiric abx. Pulm and IM mgmt. Her breathing is requiring bipap and she was in distress with hi flow today Pulmonary following She remains on full dose AC therapy for history hypercoagulable state Renal function decreased, lovenox dosed per kidneys and nephrology following. Pt is on surveillance for NSCLC, due for 4mo f/u. Will wait for treatment of her current condition then plan scans and f/u Pt baseline Hgb in 9-10's. Hx of iron deficiency, will check iron studies. Plt baseline is 90-100K. Hx DVT/PE 1995, lupus anticoagulant +. Ok to cont therapeutic dose lovenox. Dr. Colón: I have completed the full history and physical and developed the above impression and plan, agree with dictation, dictated as a scribe.
[2021-10-09] MEDS: GABAPENTIN 300 MG CAP PO SCH (19:40)
[2021-10-09] MEDS: ASPIRIN 325 MG TAB PO SCH (19:40)
[2021-10-09] MEDS: PANTOPRAZOLE 40 MG TABLET PO SCH (19:40)
[2021-10-09 19:53] LABS: Glucose,Whole Blood 181 mg/dL (75-99)
[2021-10-10] MEDS: ATORVASTATIN 40 MG TAB PO SCH (06:14)
[2021-10-10] MEDS: CITALOPRAM HYDROBROMIDE 20 MG TAB PO SCH (06:14)
[2021-10-10] MEDS: LEVOTHYROXINE 25 MCG TAB PO SCH (06:14)
[2021-10-10] MEDS: INSULIN ASPART (NovoLOG) 100 UNIT/ML VIAL SQ SCH ×4 (06:14→20:17)
[2021-10-10 06:16] LABS: Glucose,Whole Blood 154 mg/dL (75-99)
[2021-10-10] MEDS: FORMOTEROL FUMARATE 20 MCG/2 ML NEBU INHALATION SCH ×2 (07:53→19:52)
[2021-10-10] MEDS: BUDESONIDE 1 MG/2 ML NEBU INHALATION SCH ×2 (07:53→19:52)
[2021-10-10] MEDS: IPRATROPIUM-ALBUTEROL 3 ML NEB INHALATION SCH ×4 (07:53→19:52)
[2021-10-10] MEDS: DILTIAZEM CD 180 MG CAP.ER.24H PO SCH (09:02)
[2021-10-10] MEDS: BACLOFEN 10 MG TAB PO SCH ×2 (09:02→20:17)
[2021-10-10] MEDS: ENOXAPARIN 120 MG/0.8 ML SYRINGE SQ SCH (09:03)
[2021-10-10] MEDS: methylPREDNISolone SOD SUCCI 125 MG/2 ML VIAL IV SCH ×3 (09:03→23:21)
[2021-10-10] MEDS: NICOTINE 14MG/24HR PATCH TRANSDERM SCH (09:04)
[2021-10-10 09:41] LABS: Basophils % (A) 0 %; Eosinophils % (A) 0 %; HCT 30.5 % (34.0-46.0); HGB 9.8 gm/dL (11.4-16.0); Lymphocytes # (A) 0.4 k/uL (1.0-4.8); Lymphocytes % (A) 8 %; MCH 28.6 pg (25.0-35.0); MCHC 32.1 g/dL (31.0-37.0); MCV 89.1 fL (80.0-100.0); Mean Platelet Volume 8.5; Monocytes # (A) 0.3 k/uL (0-1.0); Monocytes % (A) 6 %; Neutrophils # (A) 4.4 k/uL (1.3-7.7); Neutrophils % (A) 84 %; Platelet Count 114 k/uL (150-450); RBC 3.42 m/uL (3.80-5.40); RDW 14.8 % (11.5-15.5); WBC 5.3 k/uL (3.8-10.6)
[2021-10-10 10:14] LABS: Albumin 2.8 g/dL (3.5-5.0); Calcium 7.9 mg/dL (8.4-10.2); Magnesium 2.4 mg/dL (1.6-2.3); Potassium 4.2 mmol/L (3.5-5.1); Total Bilirubin 0.6 mg/dL (0.2-1.3); Total Protein 6.4 g/dL (6.3-8.2)
[2021-10-10] MEDS: SODIUM CHLORIDE 0.45% 1,000 ML with SODIUM BICARB (1 MEQ/ML) 150 ML IV SCH ×2 (10:42)
[2021-10-10 11:57] LABS: Glucose,Whole Blood 152 mg/dL (75-99)
--- NOTE | 2021-10-10 12:09 | P.PN ---
Subjective Progress Note Date: 10/10/21 Principal diagnosis: Shortness of breath. This a very pleasant 55-year-old female patient with a known history of lung cancer/adenocarcinoma diagnosed in 2017. She had initially had radiation and then subsequently had chemo/radiation that she completed in February 2021. She also has history of DVT/PE anti-coagulated with warfarin, protein C&S deficiency, TIA, seizure disorder, hypothyroidism, hyperlipidemia, COPD with chronic and ongoing tobacco dependence. No home oxygen. She follows with Dr. Maria in the outpatient setting and was being seen there yesterday when she was having complaints of increasing shortness of breath and chest heaviness. She was referred here for the same. She has had a nonproductive cough. She states she's had some fever and chills. Chest x-ray reveals diffuse opacities throughout the left lung. White count 8.8. Hemoglobin 9.4. Platelet count 92,000. Sodium 132. Potassium 4.8. Bicarbonate 13. BUN 42. Creatinine 2.22. Glucose 146. Influenza screen negative. COVID-19 screen negative. Pro- calcitonin 4.09. Troponin negative times one. ProBNP 3440. INR 1.4. Arterial blood gases on 32% FiO2 revealed a pO2 of 94, pCO2 29 and a pH of 7.36. He is seen today in consultation on the regular medical floor. She is currently sitting up in a chair at the bedside. Awake and alert in no acute distress. Maintaining O2 saturations up to 98% on 5 L/m per nasal cannula. Currently afebrile. Hemodynamically stable. She's been initiated on ceftriaxone and azithromycin. Continued on Singulair, Pulmicort and Perforomist inhalations, DuoNeb inhalations, IV Solu-Medrol. The patient is seen today 10/08/2021 in follow-up on the selective care unit. She is currently sitting up in a chair at the bedside. Awake and alert in no acute distress. She had just returned from the bathroom and without her oxygen her saturations were 81%. She is continued on 5 L with O2 saturations in the mid 90s. Chest x-ray continues to report reveal persistent diffuse opacities in the left hemithorax with possible pleural effusion and underlying consolidative process. Increasing patchy density throughout the right lung. She's been afeb rile. Hemodynamically stable. She admits to craving cigarettes currently. NicoDerm patch will be applied. White count 7.8. Hemoglobin 9.3. Platelet count 107. Sodium 1:30. Potassium 4.5. Bicarb 14. BUN 64. Creatinine 2.14. C-reactive protein 17.6 Progress note dated 10/09/2021. The patient is seen today in room 361. The patient remains on oxygen therapy. She is at 5 L. The patient states that her breathing is improved. No new labs today except for a glucose of 154. She did ask for a nicotine patch yesterday. Blood cultures are currently negative. Chest x-ray shows persistent diffuse opacification of left hemithorax, likely related to either pneumonia and/or pleural effusion. Chest ultrasound only showed a small amount of fluid. Progress note dated 10/10/2021. 55-year-old female seen again in room 361. She remains on oxygen, nasal cannula. She's getting a half-normal saline IV with 1 amp of sodium bicarbonate 50 mL an hour. She did used to BiPAP last night with settings of 12/6%. Clinically, she is feeling well. Today, she's counseled about the importance of smoking cessation. Currently laboratory data includes a white count of 5.3, hemoglobin 9.8, hematocrit 30.5, and platelet count 114,000. Sodium 143, potassium 4.2, chlorides 108, CO2 25, BUN 65, and creatinine 1.53. No recent chest x-ray to review. Objective - Vital Signs Vital signs: Vital Signs Temp 97.4 F L 10/10/21 07:55 Pulse 80 10/10/21 11:37 Resp 26 H 10/10/21 07:55 BP 120/76 10/10/21 07:55 Pulse Ox 97 10/10/21 11:39 Intake & Output 10/09/21 10/10/21 10/10/21 18:59 06:59 18:59 Intake Total 120 480 Output Total 1200 600 Balance -1080 -120 Intake: Oral 120 480 Output: Urine 1200 600 Other: Voiding Method External Catheter External Catheter # Voids 1 - Exam No acute distress, oriented 3. Currently on nasal O2, at 6 L. Saturations are 97 %. HEENT examination is grossly unremarkable. Neck supple. Full range of motion. No adenopathy thyromegaly or neck vein distention. Cardiovascular examination reveals regular rhythm rate. S1-S2 normal. No S3 or S4. No discernible murmur noted. Heart sounds are distant. Heart rate 75 bpm. Lungs reveal scattered rhonchi bilaterally, and diminished breath sounds in the left chest. Scattered wheezes are noted. No crackles. Abdomen soft bowel sounds are heard. No masses or tenderness. Extremities are intact. No cyanosis clubbing or edema. Skin is without rash or lesion. Neurologic examination is brief but nonfocal. - Labs CBC & Chem 7: 10/10/21 08:49 10/10/21 08:49 Labs: Abnormal Lab Results - Last 24 Hours (Table) 10/09/21 10/09/21 10/09/21 Range/Units 13:33 16:04 19:22 RBC (3.80-5.40) m/uL Hgb (11.4-16.0) gm/dL Hct (34.0-46.0) % Plt Count (150-450) k/uL Lymphocytes # (1.0-4.8) k/uL Chloride 109 H (98-107) mmol/L BUN 63 H (7-17) mg/dL Creatinine 1.71 H (0.52-1.04) mg/dL Glucose 142 H (74-99) mg/dL POC Glucose (mg/dL) 185 H 181 H (75-99) mg/dL Calcium 8.0 L (8.4-10.2) mg/dL Magnesium (1.6-2.3) mg/dL Albumin (3.5-5.0) g/dL 10/10/21 10/10/21 10/10/21 Range/Units 05:52 08:49 08:49 RBC 3.42 L (3.80-5.40) m/uL Hgb 9.8 L (11.4-16.0) gm/dL Hct 30.5 L (34.0-46.0) % Plt Count 114 L (150-450) k/uL Lymphocytes # 0.4 L (1.0-4.8) k/uL Chloride 108 H (98-107) mmol/L BUN 65 H (7-17) mg/dL Creatinine 1.53 H (0.52-1.04) mg/dL Glucose 148 H (74-99) mg/dL POC Glucose (mg/dL) 154 H (75-99) mg/dL Calcium 7.9 L (8.4-10.2) mg/dL Magnesium 2.4 H (1.6-2.3) mg/dL Albumin 2.8 L (3.5-5.0) g/dL 10/10/21 Range/Units 11:54 RBC (3.80-5.40) m/uL Hgb (11.4-16.0) gm/dL Hct (34.0-46.0) % Plt Count (150-450) k/uL Lymphocytes # (1.0-4.8) k/uL Chloride (98-107) mmol/L BUN (7-17) mg/dL Creatinine (0.52-1.04) mg/dL Glucose (74-99) mg/dL POC Glucose (mg/dL) 152 H (75-99) mg/dL Calcium (8.4-10.2) mg/dL Magnesium (1.6-2.3) mg/dL Albumin (3.5-5.0) g/dL Microbiology - Last 24 Hours (Table) 10/06/21 15:10 Blood Culture - Preliminary Blood No Growth after 72 hours 10/06/21 15:05 Blood Culture - Preliminary Blood No Growth after 72 hours Assessment and Plan Assessment: Acute hypoxemic respiratory failure secondary to community-acquired pneumonia. COPD exacerbation. Chronic and ongoing tobacco dependence. History of lung cancer, status post chemoradiation, completed, February 2021. The patient was diagnosed with lung cancer 2018. History of protein C&S deficiency. History of DVT/pulmonary embolism. Hyperlipidemia. Hypothyroidism. History of seizure disorder. History of depression. Plan: Plan dated 10/09/2021. The patient is seen and evaluated in room 361. She remains on Pulmicort, Perforomist, DuoNeb, Solu-Medrol, and Rocephin. Clinically, she does feel better today. We'll continue to follow the patient and make recommendations where appropriate. The patient did ask for a nicotine patch. It was applied. Additional recommendations and suggestions are forthcoming. Prognosis is guarded. We will continue to see the patient and make recommendations were appropriate. Post discharge, she'll return to see her own global cto. Plan dated 10/10/2021. The patient is again seen in room 361. She is examined. Her medications appear to be appropriate. We will continue to follow the patient and make recommendations where appropriate. Prognosis is certainly guarded. She is counseled about the importance of smoking cessation. After discharge, the patient should follow-up with her own global cto. The patient is wearing a nicotine patch. Time with Patient: Less than 30
[2021-10-10] MEDS: MONTELUKAST 10 MG TAB PO SCH (12:13)
--- NOTE | 2021-10-10 16:05 | P.PN ---
Subjective History of present illness per H&P: Patient is a 55 yo CF patient of Dr. Urias with a hx of non-small cell lung cancer status post chemotherapy and radiation 2, DVT/PE with a history of routine C deficiency, TIA, BALNCA and multiple other comorbid conditions who was sent over from Oncology due to shortness of breath. In the ED she underwent an extensive evaluation. On arrival her pulse was 118 and respirations are up at 25. Laboratory analysis showed WBC 13, PT 14.7, INR 1.4 and ptt 84.8, sodium 133, bun 36, and cr 1.93. She was started on antibiotics. Her CXR demonstrated complete haziness of the left hemithorax. Her HR then increased and she was given a 1L bolus and pain medications. Patient seen and examined at bedside. She reports that she went to the gathering on Wednesday. By Wednesday she started having significant shortness breath. She reports that she's had fevers up to 102.7 at home. It is worse with movement and better with rest, however it is also exacerbated by lying flat. She has a dry nonproductive cough. She reports she got her cold, flu, and pneumonia shot. She is having a hard time eating because she is so winded. She is feeling very tired and overall weak. She reports she has been taking all medications as prescribed and has not missed any doses of her Lovenox. 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 Interval history: patient was seen and examined at bedside. She is still short of breath with exertion she is currently on 6 L nasal cannula. Physical examination: General: non toxic, no distress, appears at stated age Derm: warm, dry Head: atraumatic, normocephalic, symmetric Eyes: EOMI, no lid lag, anicteric sclera, pupils equal round reactive to light ENT: Nose and ears atraumatic, no thrush, no pharyngeal erythema Neck: No thyromegaly, no cervical lymphadenopathy, trachea midline, supple Mouth: no lip lesion, mucus membranes moist Cardiovascular: S1S2 reg, no murmur, positive posterior tibial pulse bilateral, no edema, capillary refill less than 2 seconds Lungs: clear to ascultation bilateral, no ronchi, no rales, no wheeze, no accessory muscle use Abdominal: soft, nontender to palpation, no guarding, no appreciable organomegaly, normal bowel sounds Ext: no gross muscle atrophy, muscle strength muscle strength 5 out of 5 in all 4 extremities, no contractures Neuro: CN II-XI grossly intact, light touch intact all 4 extremities, finger to nose within normal limits, Psych: Alert, oriented, appropriate affect ssessment and Plan Assessment: #Acute hypoxic respiratory failure Due to left-sided pneumonia and acute exacerbation of COPD in the setting of non-small lung cancer Pulmonary following Continue antibiotics, ceftriaxone and Zithromax started 10/06/21 Sputum cultures and Gram stain Blood cultures: No growth to date Influenza and COVID-19 negative Pro calcitonin 4.09 Legionella urine antigen pending Continue IV Rocephin and IV Solu-Medrol per pulmonary, bronchodilators, pulmonary toilet, incentive spirometry Remains febrile, white blood cell count trending down #Ongoing tobacco abuse -Patient was counseled regarding smoking cessation. -She is on nicotine patch #Paroxysmal Atrial flutter, new diagnosis -Normal sinus rhythm -Patient is already on full dose Lovenox for history of DVT Cardiology evaluated, transition to oral Cardizem Normal TSH Echocardiogram: Mild left ventricular concentric hypertrophy Thickening of the mitral valve with mild to moderate mitral regurgitation. EF 55 6%. #Elevated creatinine ,PIERCE -Stable - Avoid nephrotoxic agents - follow Cr -Renal ultrasound without obstruction #Anemia and thrombocytopenia, appears better than baseline Oncology following #Hyponatremia -Possibly secondary to poor solute intake versus fluid overload -Repeat in a.m. #Hx of venous thromboembolism, with protein C and protein S deficiency -Continue with Lovenox Chronic: GERD Seizure BLANCA TIA Objective - Vital Signs Vital signs: Vital Signs Temp 98 F 10/10/21 15:45 Pulse 82 10/10/21 15:45 Resp 20 10/10/21 15:45 BP 126/63 10/10/21 15:45 Pulse Ox 96 10/10/21 15:45 Intake & Output 10/09/21 10/10/21 10/10/21 18:59 06:59 18:59 Intake Total 120 480 Output Total 1200 600 200 Balance -1080 -120 -200 Intake: Oral 120 480 Output: Urine 1200 600 200 Other: Voiding Method External Catheter External Catheter # Voids 1 # Bowel Movements 1 - Labs CBC & Chem 7: 10/10/21 08:49 10/10/21 08:49 Labs: Abnormal Lab Results - Last 24 Hours (Table) 10/09/21 10/09/21 10/10/21 Range/Units 16:04 19:22 05:52 RBC (3.80-5.40) m/uL Hgb (11.4-16.0) gm/dL Hct (34.0-46.0) % Plt Count (150-450) k/uL Lymphocytes # (1.0-4.8) k/uL Chloride (98-107) mmol/L BUN (7-17) mg/dL Creatinine (0.52-1.04) mg/dL Glucose (74-99) mg/dL POC Glucose (mg/dL) 185 H 181 H 154 H (75-99) mg/dL Calcium (8.4-10.2) mg/dL Magnesium (1.6-2.3) mg/dL Albumin (3.5-5.0) g/dL 10/10/21 10/10/21 10/10/21 Range/Units 08:49 08:49 11:54 RBC 3.42 L (3.80-5.40) m/uL Hgb 9.8 L (11.4-16.0) gm/dL Hct 30.5 L (34.0-46.0) % Plt Count 114 L (150-450) k/uL Lymphocytes # 0.4 L (1.0-4.8) k/uL Chloride 108 H (98-107) mmol/L BUN 65 H (7-17) mg/dL Creatinine 1.53 H (0.52-1.04) mg/dL Glucose 148 H (74-99) mg/dL POC Glucose (mg/dL) 152 H (75-99) mg/dL Calcium 7.9 L (8.4-10.2) mg/dL Magnesium 2.4 H (1.6-2.3) mg/dL Albumin 2.8 L (3.5-5.0) g/dL Microbiology - Last 24 Hours (Table) 10/06/21 15:10 Blood Culture - Preliminary Blood No Growth after 72 hours 10/06/21 15:05 Blood Culture - Preliminary Blood No Growth after 72 hours
--- NOTE | 2021-10-10 16:18 | P.PN ---
Subjective Patient is seen for follow-up for acute kidney injury. 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 Patient did have fever along with shortness of breath on initial admission. She is being treated for pneumonia. Has received IV Lasix on and off. This morning patient states that she is feeling better. She is maintained on IV bicarb at 50 mL an hour. Good urine output Serum creatinine is down to 1.5 mg/dL today Objective - Vital Signs Vital signs: Vital Signs Temp 98 F 10/10/21 15:45 Pulse 82 10/10/21 15:45 Resp 20 10/10/21 15:45 BP 126/63 10/10/21 15:45 Pulse Ox 96 10/10/21 15:45 Intake & Output 10/09/21 10/10/21 10/10/21 18:59 06:59 18:59 Intake Total 120 480 Output Total 1200 600 200 Balance -1080 -120 -200 Intake: Oral 120 480 Output: Urine 1200 600 200 Other: Voiding Method External Catheter External Catheter # Voids 1 # Bowel Movements 1 - Exam Patient is mildly short of breath. Not in any acute distress Examination of the heart S1 and S2 Exertion lungs bilateral breath sounds are heard decreased breath sounds at the bases Abdomen is soft nontender Examination lower extremities shows no significant edema [employer] exam grossly intact - Labs CBC & Chem 7: 10/10/21 08:49 10/10/21 08:49 Labs: Abnormal Lab Results - Last 24 Hours (Table) 10/09/21 10/09/21 10/10/21 Range/Units 16:04 19:22 05:52 RBC (3.80-5.40) m/uL Hgb (11.4-16.0) gm/dL Hct (34.0-46.0) % Plt Count (150-450) k/uL Lymphocytes # (1.0-4.8) k/uL Chloride (98-107) mmol/L BUN (7-17) mg/dL Creatinine (0.52-1.04) mg/dL Glucose (74-99) mg/dL POC Glucose (mg/dL) 185 H 181 H 154 H (75-99) mg/dL Calcium (8.4-10.2) mg/dL Magnesium (1.6-2.3) mg/dL Albumin (3.5-5.0) g/dL 10/10/21 10/10/21 10/10/21 Range/Units 08:49 08:49 11:54 RBC 3.42 L (3.80-5.40) m/uL Hgb 9.8 L (11.4-16.0) gm/dL Hct 30.5 L (34.0-46.0) % Plt Count 114 L (150-450) k/uL Lymphocytes # 0.4 L (1.0-4.8) k/uL Chloride 108 H (98-107) mmol/L BUN 65 H (7-17) mg/dL Creatinine 1.53 H (0.52-1.04) mg/dL Glucose 148 H (74-99) mg/dL POC Glucose (mg/dL) 152 H (75-99) mg/dL Calcium 7.9 L (8.4-10.2) mg/dL Magnesium 2.4 H (1.6-2.3) mg/dL Albumin 2.8 L (3.5-5.0) g/dL Microbiology - Last 24 Hours (Table) 10/06/21 15:10 Blood Culture - Preliminary Blood No Growth after 72 hours 10/06/21 15:05 Blood Culture - Preliminary Blood No Growth after 72 hours Assessment and Plan Assessment: 1. Acute kidney injury, ATN associated with hypoperfusion and underlying infection. Improving. No urine retention. UA is benign. No hydronephrosis noted on ultrasound. 2. Non-gap metabolic acidosis associated with acute kidney injury 3. History of non-small cell lung cancer status post chemotherapy and radiation therapy 4. Atrial flutter status post Cardizem drip 5. History of DVT/PE with protein C and S deficiency 6. Pneumonia maintained on antibiotics Plan: DC bicarb drip Repeat labs in a.m. Encourage increased oral intake
[2021-10-10 16:48] LABS: Glucose,Whole Blood 171 mg/dL (75-99)
[2021-10-10 20:06] LABS: Glucose,Whole Blood 184 mg/dL (75-99)
[2021-10-10] MEDS: GABAPENTIN 300 MG CAP PO SCH (20:16)
[2021-10-10] MEDS: PANTOPRAZOLE 40 MG TABLET PO SCH (20:17)
[2021-10-10] MEDS: ASPIRIN 325 MG TAB PO SCH (20:17)
--- NOTE | 2021-10-10 21:13 | P.PN ---
Subjective Progress Note Date: 10/10/21 Principal diagnosis: Respiratory Failure Oxygenation and renal function is improving daily the past few days Objective - Vital Signs Vital signs: Vital Signs Temp 97.8 F 10/10/21 11:55 Pulse 80 10/10/21 11:55 Resp 22 10/10/21 11:55 BP 114/66 10/10/21 11:55 Pulse Ox 94 L 10/10/21 11:55 Intake & Output 10/09/21 10/10/21 10/10/21 18:59 06:59 18:59 Intake Total 120 480 Output Total 1200 600 200 Balance -1080 -120 -200 Intake: Oral 120 480 Output: Urine 1200 600 200 Other: Voiding Method External Catheter External Catheter # Voids 1 # Bowel Movements 1 - Exam - Constitutional General appearance: cooperative, mild distress, obese - EENT Eyes: anicteric sclerae, EOMI ENT: hearing grossly normal, normal oropharynx - Neck Neck: no lymphadenopathy - Respiratory Respiratory: Increased effort and hypoxic right: diminished, left: rhonchi, wheezing - Cardiovascular Rhythm: irregularly irregular Heart sounds: normal: S1, S2 Abnormal Heart Sounds: no systolic murmur, no diastolic murmur, no rub, no S3 Gallop, no S4 Gallop, no click, no other leg Peripheral Edema: bilateral: None - Gastrointestinal General gastrointestinal: no absent bowel sounds, no decreased bowel sounds, no distended, no hepatomegaly, no hyperactive bowel sounds, normal bowel sounds, no organomegaly, no rigid, no scaphoid, soft, no splenomegaly, no tenderness, no umbilical hernia, no ventral hernia - Integumentary Integumentary: normal - Neurologic Neurologic: CNII-XII intact - Musculoskeletal Musculoskeletal: generalized weakness, strength equal bilaterally - Psychiatric Psychiatric: A&O x's 3, appropriate affect, intact judgment & insight - Labs CBC & Chem 7: 10/10/21 08:49 10/10/21 08:49 Labs: Abnormal Lab Results - Last 24 Hours (Table) 10/09/21 10/09/21 10/09/21 Range/Units 13:33 16:04 19:22 RBC (3.80-5.40) m/uL Hgb (11.4-16.0) gm/dL Hct (34.0-46.0) % Plt Count (150-450) k/uL Lymphocytes # (1.0-4.8) k/uL Chloride 109 H (98-107) mmol/L BUN 63 H (7-17) mg/dL Creatinine 1.71 H (0.52-1.04) mg/dL Glucose 142 H (74-99) mg/dL POC Glucose (mg/dL) 185 H 181 H (75-99) mg/dL Calcium 8.0 L (8.4-10.2) mg/dL Magnesium (1.6-2.3) mg/dL Albumin (3.5-5.0) g/dL 10/10/21 10/10/21 10/10/21 Range/Units 05:52 08:49 08:49 RBC 3.42 L (3.80-5.40) m/uL Hgb 9.8 L (11.4-16.0) gm/dL Hct 30.5 L (34.0-46.0) % Plt Count 114 L (150-450) k/uL Lymphocytes # 0.4 L (1.0-4.8) k/uL Chloride 108 H (98-107) mmol/L BUN 65 H (7-17) mg/dL Creatinine 1.53 H (0.52-1.04) mg/dL Glucose 148 H (74-99) mg/dL POC Glucose (mg/dL) 154 H (75-99) mg/dL Calcium 7.9 L (8.4-10.2) mg/dL Magnesium 2.4 H (1.6-2.3) mg/dL Albumin 2.8 L (3.5-5.0) g/dL 10/10/21 Range/Units 11:54 RBC (3.80-5.40) m/uL Hgb (11.4-16.0) gm/dL Hct (34.0-46.0) % Plt Count (150-450) k/uL Lymphocytes # (1.0-4.8) k/uL Chloride (98-107) mmol/L BUN (7-17) mg/dL Creatinine (0.52-1.04) mg/dL Glucose (74-99) mg/dL POC Glucose (mg/dL) 152 H (75-99) mg/dL Calcium (8.4-10.2) mg/dL Magnesium (1.6-2.3) mg/dL Albumin (3.5-5.0) g/dL Microbiology - Last 24 Hours (Table) 10/06/21 15:10 Blood Culture - Preliminary Blood No Growth after 72 hours 10/06/21 15:05 Blood Culture - Preliminary Blood No Growth after 72 hours Assessment and Plan Plan: Chest x-ray: report reviewed US - abdomen: report reviewed Assessment and Plan Acute respiratory distress Current Visit: Yes Status: Acute Priority: High Code(s): R06.03 - ACUTE RESPIRATORY DISTRESS SNOMED Code(s): 709921403 Lung cancer Current Visit: Yes Status: Acute Priority: High Code(s): C34.90 - MALIGNANT NEOPLASM OF UNSP PART OF UNSP BRONCHUS OR LUNG SNOMED Code(s): 917744406 Bicytopenia Current Visit: Yes Status: Acute Priority: High Code(s): D75.89 - OTHER SPECIFIED DISEASES OF BLOOD AND BLOOD-FORMING ORGANS SNOMED Code(s): 34774163 Plan: Pt admitted and being treated for pneumonia/COPD exacerbation. Empiric abx. Pulm and IM mgmt. Her breathing was requiring bipap she has improved and holding saturation over 90% on 4L today Pulmonary following She remains on full dose AC therapy for history hypercoagulable state Renal function decreased, lovenox dosed per kidneys and nephrology following. Pt is on surveillance for NSCLC, due for 4mo f/u. Will wait for treatment of her current condition then plan scans and f/u cont therapeutic dose lovenox for - Hx DVT/PE 1995, lupus anticoagulant +. Ok to Dr. Colón: I have completed the full history and physical and developed the above impression and plan, agree with dictation, dictated as a scribe.
[2021-10-11] MEDS: HYDROcodone/APAP 10-325MG 1 EACH TAB PO PRN ×3 (04:36→23:19)
[2021-10-11 06:03] LABS: Glucose,Whole Blood 231 mg/dL (75-99)
[2021-10-11] MEDS: LEVOTHYROXINE 25 MCG TAB PO SCH (06:18)
[2021-10-11] MEDS: ATORVASTATIN 40 MG TAB PO SCH (06:18)
[2021-10-11] MEDS: INSULIN ASPART (NovoLOG) 100 UNIT/ML VIAL SQ SCH ×4 (06:18→21:23)
[2021-10-11] MEDS: CITALOPRAM HYDROBROMIDE 20 MG TAB PO SCH (06:18)
[2021-10-11] MEDS: IPRATROPIUM-ALBUTEROL 3 ML NEB INHALATION SCH ×4 (07:59→20:19)
[2021-10-11] MEDS: BUDESONIDE 1 MG/2 ML NEBU INHALATION SCH ×2 (08:00→20:18)
[2021-10-11] MEDS: FORMOTEROL FUMARATE 20 MCG/2 ML NEBU INHALATION SCH ×2 (08:00→20:18)
[2021-10-11] MEDS: DILTIAZEM CD 180 MG CAP.ER.24H PO SCH (08:43)
[2021-10-11] MEDS: methylPREDNISolone SOD SUCCI 125 MG/2 ML VIAL IV SCH ×3 (08:43→23:19)
[2021-10-11] MEDS: BACLOFEN 10 MG TAB PO SCH ×2 (08:43→21:23)
[2021-10-11] MEDS: ENOXAPARIN 120 MG/0.8 ML SYRINGE SQ SCH (08:44)
[2021-10-11] MEDS: NICOTINE 14MG/24HR PATCH TRANSDERM SCH (08:52)
--- NOTE | 2021-10-11 10:35 | P.PN ---
Subjective Progress Note Date: 10/11/21 Principal diagnosis: This is a 55-year-old female seen in consultation because of acute kidney injury secondary to ATN from pneumonia and hypotension when she came in with pressures in the 80s to 110s. Slowly improving. 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 DVT PE and protein [employer] deficiency. Additionally pneumonia. A chest x-ray shows left-sided pleural effusion as well as pneumonia Her initial oxygen comfortable. No nausea vomiting diarrhea no abdominal pain appetite is fair Urine output is 1200 mL. Vital signs stable, blood pressure in the 105-142 systolic Objective - Vital Signs Vital signs: Vital Signs Temp 97.9 F 10/11/21 03:42 Pulse 82 10/11/21 08:19 Resp 20 10/11/21 03:42 BP 142/73 10/11/21 03:42 Pulse Ox 96 10/11/21 03:42 Intake & Output 10/10/21 10/11/21 10/11/21 18:59 06:59 18:59 Intake Total 350 240 120 Output Total 600 600 Balance -250 -360 120 Intake: Intake, IV Titration 350 Amount Sodium Chloride 0.45% 1, 350 000 ml @ 50 mls/hr IV . Q23H ZARIA with Sodium Bicarb (1 Meq/ml) 150 ml Rx#:[id number] Oral 240 120 Output: Urine 600 600 Other: Voiding Method External Catheter External Catheter # Voids 1 # Bowel Movements 1 1 On examination she is somewhat obese HEENT exam difficult Lungs are significant for fair air entry bilaterally in spite of the large pleural effusion on chest x-ray on the left. Heart sounds unremarkable no murmur rub gallop Abdomen obese nontender Extremity exam was mild edema Neurologically awake alert oriented - Labs CBC & Chem 7: 10/10/21 08:49 10/10/21 08:49 Labs: Abnormal Lab Results - Last 24 Hours (Table) 10/10/21 10/10/21 10/10/21 Range/Units 11:54 16:46 20:04 POC Glucose (mg/dL) 152 H 171 H 184 H (75-99) mg/dL 10/11/21 Range/Units 06:01 POC Glucose (mg/dL) 231 H (75-99) mg/dL Microbiology - Last 24 Hours (Table) 10/06/21 15:10 Blood Culture - Preliminary Blood No Growth after 96 hours 10/06/21 15:05 Blood Culture - Preliminary Blood No Growth after 96 hours Assessment and Plan Assessment: Impression 1. Acute kidney injury secondary to hypoperfusion from pneumonia and low blood pressure. Creatinine improving peak on 10/07/2021 at 2.2 and currently 1.53 as of yesterday lasted are pending. 2. Mild edema. 3. Left pleural effusion and consolidation and pneumonia 4. History of known small cell CA lung CA status post chemoradiation. 5. History of hypercoagulable state with DVT and PE Recommendation 1. We'll give her 1 dose of Lasix 20 mg by mouth and see what the effect of it is on her edema creatinine in the shortness of breath. 2. Chest x-ray on 10/08/2021 shows left pleural effusion as well as consolidation, deferred to the primary physician regarding this 3. Monitor labs I's and O's
[2021-10-11 11:27] LABS: Glucose,Whole Blood 222 mg/dL (75-99)
[2021-10-11] MEDS: MONTELUKAST 10 MG TAB PO SCH (12:38)
--- NOTE | 2021-10-11 14:32 | P.PN ---
Subjective Progress Note Date: 10/11/21 History of present illness per H&P: Patient is a 55 yo CF patient of Dr. 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 In the ED she underwent an extensive evaluation. On arrival her pulse was 118 and respirations are up at 25. Laboratory analysis showed WBC 13, PT 14.7, INR 1.4 and ptt 84.8, sodium 133, bun 36, and cr 1.93. She was started on antibiotics. Her CXR demonstrated complete haziness of the left hemithorax. Her HR then increased and she was given a 1L bolus and pain medications. Patient seen and examined at bedside. She reports that she went to the gathering on Wednesday. By Wednesday she started having significant shortness breath. She reports that she's had fevers up to 102.7 at home. It is worse with movement and better with rest, however it is also exacerbated by lying flat. She has a dry nonproductive cough. She reports she got her cold, flu, and pneumonia shot. She is having a hard time eating because she is so winded. She is feeling very tired and overall weak. She reports she has been taking all medications as prescribed and has not missed any doses of her Lovenox. 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 Interval history: patient was seen and examined at bedside. She is still short of breath with exertion she is currently on 4 L nasal cannula. Physical examination: General: non toxic, no distress, appears at stated age Derm: warm, dry Head: atraumatic, normocephalic, symmetric Eyes: EOMI, no lid lag, anicteric sclera, pupils equal round reactive to light ENT: Nose and ears atraumatic, no thrush, no pharyngeal erythema Neck: No thyromegaly, no cervical lymphadenopathy, trachea midline, supple Mouth: no lip lesion, mucus membranes moist Cardiovascular: S1S2 reg, no murmur, positive posterior tibial pulse bilateral, no edema, capillary refill less than 2 seconds Lungs: clear to ascultation bilateral, no ronchi, no rales, no wheeze, no accessory muscle use Abdominal: soft, nontender to palpation, no guarding, no appreciable organomegaly, normal bowel sounds Ext: no gross muscle atrophy, muscle strength muscle strength 5 out of 5 in all 4 extremities, no contractures Neuro: CN II-XI grossly intact, light touch intact all 4 extremities, finger to nose within normal limits, Psych: Alert, oriented, appropriate affect ssessment and Plan Assessment: #Acute hypoxic respiratory failure Due to left-sided pneumonia and acute exacerbation of COPD in the setting of non-small lung cancer Pulmonary following Continue antibiotics, ceftriaxone and Zithromax started 10/06/21 Sputum cultures and Gram stain Blood cultures: No growth to date Influenza and COVID-19 negative Pro calcitonin 4.09 Legionella urine antigen pending Continue IV Rocephin and IV Solu-Medrol per pulmonary, bronchodilators, pulmonary toilet, incentive spirometry Remains febrile, white blood cell count trending down #Ongoing tobacco abuse -Patient was counseled regarding smoking cessation. -She is on nicotine patch #Paroxysmal Atrial flutter, new diagnosis -Normal sinus rhythm -Patient is already on full dose Lovenox for history of DVT Cardiology evaluated, transition to oral Cardizem Normal TSH Echocardiogram: Mild left ventricular concentric hypertrophy Thickening of the mitral valve with mild to moderate mitral regurgitation. EF 55 6%. #Elevated creatinine ,PIERCE -Stable - Avoid nephrotoxic agents - follow Cr -Renal ultrasound without obstruction #Anemia and thrombocytopenia, appears better than baseline Oncology following #Hyponatremia -Possibly secondary to poor solute intake versus fluid overload -Repeat in a.m. #Hx of venous thromboembolism, with protein C and protein S deficiency -Continue with Lovenox Chronic: GERD Seizure BLANCA TIA Objective - Vital Signs Vital signs: Vital Signs Temp 98.0 F 10/11/21 08:00 Pulse 76 10/11/21 11:17 Resp 19 10/11/21 08:00 BP 126/69 10/11/21 08:00 Pulse Ox 93 L 10/11/21 08:00 Intake & Output 10/10/21 10/11/21 10/11/21 18:59 06:59 18:59 Intake Total 350 240 120 Output Total 600 600 Balance -250 -360 120 Intake: Intake, IV Titration 350 Amount Sodium Chloride 0.45% 1, 350 000 ml @ 50 mls/hr IV . Q23H ZARIA with Sodium Bicarb (1 Meq/ml) 150 ml Rx#:[id number] Oral 240 120 Output: Urine 600 600 Other: Voiding Method External Catheter External Catheter # Voids 1 # Bowel Movements 1 1 - Labs CBC & Chem 7: 10/10/21 08:49 10/10/21 08:49 Labs: Abnormal Lab Results - Last 24 Hours (Table) 10/10/21 10/10/21 10/11/21 Range/Units 16:46 20:04 06:01 POC Glucose (mg/dL) 171 H 184 H 231 H (75-99) mg/dL 10/11/21 Range/Units 11:26 POC Glucose (mg/dL) 222 H (75-99) mg/dL Microbiology - Last 24 Hours (Table) 10/06/21 15:10 Blood Culture - Preliminary Blood No Growth after 96 hours 10/06/21 15:05 Blood Culture - Preliminary Blood No Growth after 96 hours
--- NOTE | 2021-10-11 14:33 | P.PN ---
Subjective Progress Note Date: 10/11/21 Principal diagnosis: Shortness of breath. This a very pleasant 55-year-old female patient with a known history of lung cancer/adenocarcinoma diagnosed in 2017. She had initially had radiation and then subsequently had chemo/radiation that she completed in February 2021. She also has history of DVT/PE anti-coagulated with warfarin, protein C&S deficiency, TIA, seizure disorder, hypothyroidism, hyperlipidemia, COPD with chronic and ongoing tobacco dependence. No home oxygen. She follows with Dr. Maria in the outpatient setting and was being seen there yesterday when she was having complaints of increasing shortness of breath and chest heaviness. She was referred here for the same. She has had a nonproductive cough. She states she's had some fever and chills. Chest x-ray reveals diffuse opacities throughout the left lung. White count 8.8. Hemoglobin 9.4. Platelet count 92,000. Sodium 132. Potassium 4.8. Bicarbonate 13. BUN 42. Creatinine 2.22. Glucose 146. Influenza screen negative. COVID-19 screen negative. Pro- calcitonin 4.09. Troponin negative times one. ProBNP 3440. INR 1.4. Arterial blood gases on 32% FiO2 revealed a pO2 of 94, pCO2 29 and a pH of 7.36. He is seen today in consultation on the regular medical floor. She is currently sitting up in a chair at the bedside. Awake and alert in no acute distress. Maintaining O2 saturations up to 98% on 5 L/m per nasal cannula. Currently afebrile. Hemodynamically stable. She's been initiated on ceftriaxone and azithromycin. Continued on Singulair, Pulmicort and Perforomist inhalations, DuoNeb inhalations, IV Solu-Medrol. The patient is seen today 10/08/2021 in follow-up on the selective care unit. She is currently sitting up in a chair at the bedside. Awake and alert in no acute distress. She had just returned from the bathroom and without her oxygen her saturations were 81%. She is continued on 5 L with O2 saturations in the mid 90s. Chest x-ray continues to report reveal persistent diffuse opacities in the left hemithorax with possible pleural effusion and underlying consolidative process. Increasing patchy density throughout the right lung. She's been afeb rile. Hemodynamically stable. She admits to craving cigarettes currently. NicoDerm patch will be applied. White count 7.8. Hemoglobin 9.3. Platelet count 107. Sodium 1:30. Potassium 4.5. Bicarb 14. BUN 64. Creatinine 2.14. C-reactive protein 17.6 Progress note dated 10/09/2021. The patient is seen today in room 361. The patient remains on oxygen therapy. She is at 5 L. The patient states that her breathing is improved. No new labs today except for a glucose of 154. She did ask for a nicotine patch yesterday. Blood cultures are currently negative. Chest x-ray shows persistent diffuse opacification of left hemithorax, likely related to either pneumonia and/or pleural effusion. Chest ultrasound only showed a small amount of fluid. Progress note dated 10/10/2021. 55-year-old female seen again in room 361. She remains on oxygen, nasal cannula. She's getting a half-normal saline IV with 1 amp of sodium bicarbonate 50 mL an hour. She did used to BiPAP last night with settings of 12/6%. Clinically, she is feeling well. Today, she's counseled about the importance of smoking cessation. Currently laboratory data includes a white count of 5.3, hemoglobin 9.8, hematocrit 30.5, and platelet count 114,000. Sodium 143, potassium 4.2, chlorides 108, CO2 25, BUN 65, and creatinine 1.53. No recent chest x-ray to review. Progress note dated 10/11/2021. 55-year-old female seen again in room 361. Currently, the patient is on 4 L nasal cannula. She was getting half-normal saline with 3 ampules of sodium bicarbonate at 50 mL an hour. She didn't use BiPAP last night with settings of 12/6 and 40%. She uses the BiPAP for about 4 hours. No new laboratory data t octavio. The patient is feeling better. She sitting in her chair next to the bed. She states that her breathing is improved, and she is less short of breath. Objective - Vital Signs Vital signs: Vital Signs Temp 98.0 F 10/11/21 08:00 Pulse 76 10/11/21 11:17 Resp 19 10/11/21 08:00 BP 126/69 10/11/21 08:00 Pulse Ox 93 L 10/11/21 08:00 Intake & Output 10/10/21 10/11/21 10/11/21 18:59 06:59 18:59 Intake Total 350 240 120 Output Total 600 600 Balance -250 -360 120 Intake: Intake, IV Titration 350 Amount Sodium Chloride 0.45% 1, 350 000 ml @ 50 mls/hr IV . Q23H ZARIA with Sodium Bicarb (1 Meq/ml) 150 ml Rx#:[id number] Oral 240 120 Output: Urine 600 600 Other: Voiding Method External Catheter External Catheter # Voids 1 # Bowel Movements 1 1 - Exam No acute distress, oriented 3. Currently on nasal O2, at 4 L. Saturations are 96 %. HEENT examination is grossly unremarkable. Neck supple. Full range of motion. No adenopathy thyromegaly or neck vein distention. Cardiovascular examination reveals regular rhythm rate. S1-S2 normal. No S3 or S4. No discernible murmur noted. Heart sounds are distant. Heart rate 72 bpm. Lungs reveal scattered rhonchi bilaterally, and diminished breath sounds in the left chest. Scattered wheezes are noted. No crackles. Abdomen soft bowel sounds are heard. No masses or tenderness. Extremities are intact. No cyanosis clubbing or edema. Skin is without rash or lesion. Neurologic examination is brief but nonfocal. - Labs CBC & Chem 7: 10/10/21 08:49 10/10/21 08:49 Labs: Abnormal Lab Results - Last 24 Hours (Table) 10/10/21 10/10/21 10/11/21 Range/Units 16:46 20:04 06:01 POC Glucose (mg/dL) 171 H 184 H 231 H (75-99) mg/dL 10/11/21 Range/Units 11:26 POC Glucose (mg/dL) 222 H (75-99) mg/dL Microbiology - Last 24 Hours (Table) 10/06/21 15:10 Blood Culture - Preliminary Blood No Growth after 96 hours 10/06/21 15:05 Blood Culture - Preliminary Blood No Growth after 96 hours Assessment and Plan Assessment: Acute hypoxemic respiratory failure secondary to community-acquired pneumonia. COPD exacerbation. Chronic and ongoing tobacco dependence. History of lung cancer, status post chemoradiation, completed, February 2021. The patient was diagnosed with lung cancer 2017. History of protein C&S deficiency. History of DVT/pulmonary embolism. Hyperlipidemia. Hypothyroidism. History of seizure disorder. History of depression. Plan: Plan dated 10/09/2021. The patient is seen and evaluated in room 361. She remains on Pulmicort, Perforomist, DuoNeb, Solu-Medrol, and Rocephin. Clinically, she does feel better today. We'll continue to follow the patient and make recommendations where appropriate. The patient did ask for a nicotine patch. It was applied. Additional recommendations and suggestions are forthcoming. Prognosis is guarded. We will continue to see the patient and make recommendations were appropriate. Post discharge, she'll return to see her own automotive vehicle inspector. Plan dated 10/10/2021. The patient is again seen in room 361. She is examined. Her medications appear to be appropriate. We will continue to follow the patient and make recommendations where appropriate. Prognosis is certainly guarded. She is counseled about the importance of smoking cessation. After discharge, the patient should follow-up with her own automotive vehicle inspector. The patient is wearing a nicotine patch. Plan dated 10/11/2021. The patient appears to be doing better. She's down to 4 L nasal cannula. Yesterday, she was on 6 L. Additional recommendations and suggestions are forthcoming. We will continue to follow the patient and make recommendations where appropriate. She can use the BiPAP at nighttime if she wishes. The rest of the medications are appropriate and include DuoNeb, long-acting beta agonist, inhaled corticosteroid, systemic corticosteroids, and antibiotics. Prognosis is guarded. The patient is counseled about the importance of smoking cessation. Time with Patient: Less than 30
[2021-10-11 16:22] LABS: Glucose,Whole Blood 276 mg/dL (75-99)
[2021-10-11 20:55] LABS: Glucose,Whole Blood 273 mg/dL (75-99)
[2021-10-11] MEDS: ASPIRIN 325 MG TAB PO SCH (21:23)
[2021-10-11] MEDS: PANTOPRAZOLE 40 MG TABLET PO SCH (21:23)
[2021-10-11] MEDS: GABAPENTIN 300 MG CAP PO SCH (21:23)
[2021-10-12] MEDS: ATORVASTATIN 40 MG TAB PO SCH (06:34)
[2021-10-12] MEDS: LEVOTHYROXINE 25 MCG TAB PO SCH (06:34)
[2021-10-12] MEDS: INSULIN ASPART (NovoLOG) 100 UNIT/ML VIAL SQ SCH ×4 (06:34→20:43)
[2021-10-12] MEDS: CITALOPRAM HYDROBROMIDE 20 MG TAB PO SCH (06:34)
[2021-10-12 06:37] LABS: Glucose,Whole Blood 324 mg/dL (75-99)
[2021-10-12] MEDS: BUDESONIDE 1 MG/2 ML NEBU INHALATION SCH ×2 (08:26→20:18)
[2021-10-12] MEDS: FORMOTEROL FUMARATE 20 MCG/2 ML NEBU INHALATION SCH ×2 (08:26→20:18)
[2021-10-12] MEDS: IPRATROPIUM-ALBUTEROL 3 ML NEB INHALATION SCH ×4 (08:26→20:18)
[2021-10-12 09:07] LABS: Basophils # (A) 0.1 k/uL (0-0.2); Basophils % (A) 0 %; Eosinophils % (A) 0 %; HCT 31.9 % (34.0-46.0); Hypochromasia Slight; Lymphocytes # (A) 0.5 k/uL (1.0-4.8); Lymphocytes % (A) 4 %; MCH 28.5 pg (25.0-35.0); MCHC 31.2 g/dL (31.0-37.0); MCV 91.3 fL (80.0-100.0); Mean Platelet Volume 8.6; Monocytes # (A) 0.5 k/uL (0-1.0); Monocytes % (A) 4 %; Neutrophils % (A) 91 %; Platelet Count 127 k/uL (150-450); RBC 3.49 m/uL (3.80-5.40); RDW 14.5 % (11.5-15.5); WBC 13.2 k/uL (3.8-10.6)
[2021-10-12 09:27] LABS: Albumin 2.8 g/dL (3.5-5.0); Potassium 3.8 mmol/L (3.5-5.1); Total Protein 6.1 g/dL (6.3-8.2)
[2021-10-12 09:28] LABS: Calcium 7.7 mg/dL (8.4-10.2); Total Bilirubin 0.4 mg/dL (0.2-1.3)
[2021-10-12] MEDS: methylPREDNISolone SOD SUCCI 125 MG/2 ML VIAL IV SCH (10:21)
[2021-10-12] MEDS: NICOTINE 14MG/24HR PATCH TRANSDERM SCH (10:21)
[2021-10-12] MEDS: BACLOFEN 10 MG TAB PO SCH ×2 (10:21→20:43)
[2021-10-12] MEDS: DILTIAZEM CD 180 MG CAP.ER.24H PO SCH (10:21)
[2021-10-12] MEDS: ENOXAPARIN 120 MG/0.8 ML SYRINGE SQ SCH (10:22)
[2021-10-12] MEDS: HYDROcodone/APAP 10-325MG 1 EACH TAB PO PRN ×2 (10:27→22:29)
--- NOTE | 2021-10-12 11:03 | P.PN ---
Subjective Progress Note Date: 10/12/21 Principal diagnosis: This is a 55-year-old female seen in consultation because of acute kidney injury secondary to ATN from pneumonia and hypotension when she came in with pressures in the 80s to 110s. Slowly improving. 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 DVT PE and protein C and S deficiency. A chest x-ray shows left-sided pleural effusion as well as pneumonia She is feeling much better this morning good appetite no nausea vomiting no chest pain no dizziness. She is on nasal cannula oxygen. Objective - Vital Signs Vital signs: Vital Signs Temp 98.4 F 10/12/21 08:00 Pulse 72 10/12/21 10:53 Resp 19 10/12/21 08:00 BP 112/68 10/12/21 08:00 Pulse Ox 96 10/12/21 08:00 Intake & Output 10/11/21 10/12/21 10/12/21 18:59 06:59 18:59 Intake Total 120 10 180 Balance 120 10 180 Intake: IV 10 Invasive Line 4 10 Oral 120 180 Other: Voiding Method External Catheter Bedside Commode Bedside Commode # Voids 3 1 On examination is awake alert oriented comfortable. Nasal cannula oxygen 2 L No JVP, no facial asymmetry Lungs are clear to auscultation good air entry bilaterally Heart sounds unremarkable for any murmur rub Abdomen is morbidly obese difficult to examine Extremity exam reveals minimal edema. Neurologically awake alert oriented - Labs CBC & Chem 7: 10/12/21 08:19 10/12/21 08:19 Labs: Abnormal Lab Results - Last 24 Hours (Table) 10/11/21 10/11/21 10/11/21 Range/Units 11:26 16:21 20:45 WBC (3.8-10.6) k/uL RBC (3.80-5.40) m/uL Hgb (11.4-16.0) gm/dL Hct (34.0-46.0) % Plt Count (150-450) k/uL Neutrophils # (1.3-7.7) k/uL Lymphocytes # (1.0-4.8) k/uL Sodium (137-145) mmol/L BUN (7-17) mg/dL Creatinine (0.52-1.04) mg/dL Glucose (74-99) mg/dL POC Glucose (mg/dL) 222 H 276 H 273 H (75-99) mg/dL Calcium (8.4-10.2) mg/dL Total Protein (6.3-8.2) g/dL Albumin (3.5-5.0) g/dL 10/12/21 10/12/21 10/12/21 Range/Units 06:20 08:19 08:19 WBC 13.2 H (3.8-10.6) k/uL RBC 3.49 L (3.80-5.40) m/uL Hgb 10.0 L (11.4-16.0) gm/dL Hct 31.9 L (34.0-46.0) % Plt Count 127 L (150-450) k/uL Neutrophils # 12.0 H (1.3-7.7) k/uL Lymphocytes # 0.5 L (1.0-4.8) k/uL Sodium 136 L (137-145) mmol/L BUN 64 H (7-17) mg/dL Creatinine 1.44 H (0.52-1.04) mg/dL Glucose 217 H (74-99) mg/dL POC Glucose (mg/dL) 324 H (75-99) mg/dL Calcium 7.7 L (8.4-10.2) mg/dL Total Protein 6.1 L (6.3-8.2) g/dL Albumin 2.8 L (3.5-5.0) g/dL Microbiology - Last 24 Hours (Table) 10/06/21 15:10 Blood Culture - Preliminary Blood No Growth after 120 hours 10/06/21 15:05 Blood Culture - Preliminary Blood No Growth after 120 hours Assessment and Plan Assessment: Impression 1. Acute kidney injury secondary to hypoperfusion from pneumonia and low blood pressure. Creatinine improving, with a peak on 10/07/2021 at 2.2 and currently for 1. 4 this morning. She will receive 1 dose of Lasix yesterday to see if her breathing improved and it has 2. Mild edema. 3. Left pleural effusion and consolidation and pneumonia 4. History of known small cell CA lung CA status post chemoradiation. 5. History of hypercoagulable state with DVT and PE Recommendation 1. Start Lasix 20 mg by mouth daily, for edema 2. Watch blood pressures urine output and labs
[2021-10-12 11:45] LABS: Glucose,Whole Blood 165 mg/dL (75-99)
[2021-10-12] MEDS: FUROSEMIDE 20 MG TAB PO SCH (12:19)
[2021-10-12] MEDS: predniSONE 20 MG TAB PO SCH (12:19)
[2021-10-12] MEDS: MONTELUKAST 10 MG TAB PO SCH (12:19)
--- NOTE | 2021-10-12 14:07 | P.PN ---
Subjective History of present illness per H&P: Patient is a 55 yo CF patient of Dr. 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 In the ED she underwent an extensive evaluation. On arrival her pulse was 118 and respirations are up at 25. Laboratory analysis showed WBC 13, PT 14.7, INR 1.4 and ptt 84.8, sodium 133, bun 36, and cr 1.93. She was started on antibiotics. Her CXR demonstrated complete haziness of the left hemithorax. Her HR then increased and she was given a 1L bolus and pain medications. Patient seen and examined at bedside. She reports that she went to the gathering on Wednesday. By Wednesday she started having significant shortness breath. She reports that she's had fevers up to 102.7 at home. It is worse with movement and better with rest, however it is also exacerbated by lying flat. She has a dry nonproductive cough. She reports she got her cold, flu, and pneumonia shot. She is having a hard time eating because she is so winded. She is feeling very tired and overall weak. She reports she has been taking all medications as prescribed and has not missed any doses of her Lovenox. 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 Interval history: patient was seen and examined at bedside. She is feeling better. she is currently on 4 L nasal cannula. Physical examination: General: non toxic, no distress, appears at stated age. Obese Derm: warm, dry Head: atraumatic, normocephalic, symmetric Eyes: EOMI, no lid lag, anicteric sclera, pupils equal round reactive to light ENT: Nose and ears atraumatic, no thrush, no pharyngeal erythema Neck: No thyromegaly, no cervical lymphadenopathy, trachea midline, supple Mouth: no lip lesion, mucus membranes moist Cardiovascular: S1S2 reg, no murmur, positive posterior tibial pulse bilateral, no edema, capillary refill less than 2 seconds Lungs: clear to ascultation bilateral, no ronchi, no rales, no wheeze, no accessory muscle use Abdominal: soft, nontender to palpation, no guarding, no appreciable organomegaly, normal bowel sounds Ext: no gross muscle atrophy, muscle strength muscle strength 5 out of 5 in all 4 extremities, no contractures Neuro: CN II-XI grossly intact, light touch intact all 4 extremities, finger to nose within normal limits, Psych: Alert, oriented, appropriate affect ssessment and Plan Assessment: #Acute hypoxic respiratory failure Due to left-sided pneumonia and acute exacerbation of COPD in the setting of non-small lung cancer Pulmonary following Continue antibiotics, ceftriaxone and Zithromax started 10/06/21 Sputum cultures and Gram stain Blood cultures: No growth to date Influenza and COVID-19 negative Pro calcitonin 4.09 Continue IV Rocephin and change methimazole to by mouth prednisone 40 mg daily, bronchodilators, pulmonary toilet, incentive spirometry Remains febrile, white blood cell count trending down #Ongoing tobacco abuse -Patient was counseled regarding smoking cessation. -She is on nicotine patch #Paroxysmal Atrial flutter, new diagnosis -Normal sinus rhythm -Patient is already on full dose Lovenox for history of DVT Cardiology evaluated, transition to oral Cardizem Normal TSH Echocardiogram: Mild left ventricular concentric hypertrophy Thickening of the mitral valve with mild to moderate mitral regurgitation. EF 55 6%. #Acute kidney injury -Stable - Avoid nephrotoxic agents -Renal ultrasound without obstruction -Nephrology started Lasix for lower extremity edema #Anemia and thrombocytopenia, appears better than baseline Oncology following #Hyponatremia -Possibly secondary to poor solute intake versus fluid overload -Repeat in a.m. #Hx of venous thromboembolism, with protein C and protein S deficiency -Continue with Lovenox Chronic: GERD Seizure BLANCA TIA Objective - Vital Signs Vital signs: Vital Signs Temp 98.4 F 10/12/21 08:00 Pulse 72 10/12/21 11:06 Resp 19 10/12/21 08:00 BP 112/68 10/12/21 08:00 Pulse Ox 96 10/12/21 08:00 Intake & Output 10/11/21 10/12/21 10/12/21 18:59 06:59 18:59 Intake Total 120 10 180 Balance 120 10 180 Intake: IV 10 Invasive Line 4 10 Oral 120 180 Other: Voiding Method External Catheter Bedside Commode Bedside Commode # Voids 3 1 - Labs CBC & Chem 7: 10/12/21 08:19 10/12/21 08:19 Labs: Abnormal Lab Results - Last 24 Hours (Table) 10/11/21 10/11/21 10/12/21 Range/Units 16:21 20:45 06:20 WBC (3.8-10.6) k/uL RBC (3.80-5.40) m/uL Hgb (11.4-16.0) gm/dL Hct (34.0-46.0) % Plt Count (150-450) k/uL Neutrophils # (1.3-7.7) k/uL Lymphocytes # (1.0-4.8) k/uL Sodium (137-145) mmol/L BUN (7-17) mg/dL Creatinine (0.52-1.04) mg/dL Glucose (74-99) mg/dL POC Glucose (mg/dL) 276 H 273 H 324 H (75-99) mg/dL Calcium (8.4-10.2) mg/dL Total Protein (6.3-8.2) g/dL Albumin (3.5-5.0) g/dL 10/12/21 10/12/21 10/12/21 Range/Units 08:19 08:19 11:43 WBC 13.2 H (3.8-10.6) k/uL RBC 3.49 L (3.80-5.40) m/uL Hgb 10.0 L (11.4-16.0) gm/dL Hct 31.9 L (34.0-46.0) % Plt Count 127 L (150-450) k/uL Neutrophils # 12.0 H (1.3-7.7) k/uL Lymphocytes # 0.5 L (1.0-4.8) k/uL Sodium 136 L (137-145) mmol/L BUN 64 H (7-17) mg/dL Creatinine 1.44 H (0.52-1.04) mg/dL Glucose 217 H (74-99) mg/dL POC Glucose (mg/dL) 165 H (75-99) mg/dL Calcium 7.7 L (8.4-10.2) mg/dL Total Protein 6.1 L (6.3-8.2) g/dL Albumin 2.8 L (3.5-5.0) g/dL Microbiology - Last 24 Hours (Table) 10/06/21 15:10 Blood Culture - Preliminary Blood No Growth after 120 hours 10/06/21 15:05 Blood Culture - Preliminary Blood No Growth after 120 hours
--- NOTE | 2021-10-12 14:45 | P.PN ---
Subjective Progress Note Date: 10/12/21 Principal diagnosis: Shortness of breath. This a very pleasant 55-year-old female patient with a known history of lung cancer/adenocarcinoma diagnosed in 2017. She had initially had radiation and then subsequently had chemo/radiation that she completed in February 2021. She also has history of DVT/PE anti-coagulated with warfarin, protein C&S deficiency, TIA, seizure disorder, hypothyroidism, hyperlipidemia, COPD with chronic and ongoing tobacco dependence. No home oxygen. She follows with Dr. Maria in the outpatient setting and was being seen there yesterday when she was having complaints of increasing shortness of breath and chest heaviness. She was referred here for the same. She has had a nonproductive cough. She states she's had some fever and chills. Chest x-ray reveals diffuse opacities throughout the left lung. White count 8.8. Hemoglobin 9.4. Platelet count 92,000. Sodium 132. Potassium 4.8. Bicarbonate 13. BUN 42. Creatinine 2.22. Glucose 146. Influenza screen negative. COVID-19 screen negative. Pro- calcitonin 4.09. Troponin negative times one. ProBNP 3440. INR 1.4. Arterial blood gases on 32% FiO2 revealed a pO2 of 94, pCO2 29 and a pH of 7.36. He is seen today in consultation on the regular medical floor. She is currently sitting up in a chair at the bedside. Awake and alert in no acute distress. Maintaining O2 saturations up to 98% on 5 L/m per nasal cannula. Currently afebrile. Hemodynamically stable. She's been initiated on ceftriaxone and azithromycin. Continued on Singulair, Pulmicort and Perforomist inhalations, DuoNeb inhalations, IV Solu-Medrol. The patient is seen today 10/08/2021 in follow-up on the selective care unit. She is currently sitting up in a chair at the bedside. Awake and alert in no acute distress. She had just returned from the bathroom and without her oxygen her saturations were 81%. She is continued on 5 L with O2 saturations in the mid 90s. Chest x-ray continues to report reveal persistent diffuse opacities in the left hemithorax with possible pleural effusion and underlying consolidative process. Increasing patchy density throughout the right lung. She's been afeb rile. Hemodynamically stable. She admits to craving cigarettes currently. NicoDerm patch will be applied. White count 7.8. Hemoglobin 9.3. Platelet count 107. Sodium 1:30. Potassium 4.5. Bicarb 14. BUN 64. Creatinine 2.14. C-reactive protein 17.6 Progress note dated 10/09/2021. The patient is seen today in room 361. The patient remains on oxygen therapy. She is at 5 L. The patient states that her breathing is improved. No new labs today except for a glucose of 154. She did ask for a nicotine patch yesterday. Blood cultures are currently negative. Chest x-ray shows persistent diffuse opacification of left hemithorax, likely related to either pneumonia and/or pleural effusion. Chest ultrasound only showed a small amount of fluid. Progress note dated 10/10/2021. 55-year-old female seen again in room 361. She remains on oxygen, nasal cannula. She's getting a half-normal saline IV with 1 amp of sodium bicarbonate 50 mL an hour. She did used to BiPAP last night with settings of 12/6%. Clinically, she is feeling well. Today, she's counseled about the importance of smoking cessation. Currently laboratory data includes a white count of 5.3, hemoglobin 9.8, hematocrit 30.5, and platelet count 114,000. Sodium 143, potassium 4.2, chlorides 108, CO2 25, BUN 65, and creatinine 1.53. No recent chest x-ray to review. Progress note dated 10/11/2021. 55-year-old female seen again in room 361. Currently, the patient is on 4 L nasal cannula. She was getting half-normal saline with 3 ampules of sodium bicarbonate at 50 mL an hour. She didn't use BiPAP last night with settings of 12/6 and 40%. She uses the BiPAP for about 4 hours. No new laboratory data t octavio. The patient is feeling better. She sitting in her chair next to the bed. She states that her breathing is improved, and she is less short of breath. Progress note dated 10/12/2021. 55-year-old female seen again in room 361. She's currently on 4 L nasal cannula. She did not use of BiPAP device last night. Her saturations are 96%. Her oxygen can probably be weaned a bit. She's getting saline at KVO. She is feeling better. We've talked to the patient about the importance of smoking cessation a number of times. White count 13.2, hemoglobin 10, hematocrit 31.9, and platelet count 127,000. Sodium 136, potassium 3.8, chlorides 104, CO2 25, BUN 64, and creatinine 1.44. Microbiologic sampling is negative. No recent chest x-ray to report. Objective - Vital Signs Vital signs: Vital Signs Temp 98.4 F 10/12/21 08:00 Pulse 72 10/12/21 11:06 Resp 19 10/12/21 08:00 BP 112/68 10/12/21 08:00 Pulse Ox 96 10/12/21 08:00 Intake & Output 10/11/21 10/12/21 10/12/21 18:59 06:59 18:59 Intake Total 120 10 180 Balance 120 10 180 Intake: IV 10 Invasive Line 4 10 Oral 120 180 Other: Voiding Method External Catheter Bedside Commode Bedside Commode # Voids 3 1 - Exam No acute distress, oriented 3. Currently on nasal O2, at 4 L. Saturations are 97 %. HEENT examination is grossly unremarkable. Neck supple. Full range of motion. No adenopathy thyromegaly or neck vein distention. Cardiovascular examination reveals regular rhythm rate. S1-S2 normal. No S3 or S4. No discernible murmur noted. Heart sounds are distant. Heart rate 84 bpm. Lungs reveal scattered rhonchi bilaterally, and diminished breath sounds in the left chest. Scattered wheezes are noted. No crackles. Breath sounds are improved. Abdomen soft bowel sounds are heard. No masses or tenderness. Extremities are intact. No cyanosis clubbing or edema. Skin is without rash or lesion. Neurologic examination is brief but nonfocal. - Labs CBC & Chem 7: 10/12/21 08:19 10/12/21 08:19 Labs: Abnormal Lab Results - Last 24 Hours (Table) 10/11/21 10/11/21 10/12/21 Range/Units 16:21 20:45 06:20 WBC (3.8-10.6) k/uL RBC (3.80-5.40) m/uL Hgb (11.4-16.0) gm/dL Hct (34.0-46.0) % Plt Count (150-450) k/uL Neutrophils # (1.3-7.7) k/uL Lymphocytes # (1.0-4.8) k/uL Sodium (137-145) mmol/L BUN (7-17) mg/dL Creatinine (0.52-1.04) mg/dL Glucose (74-99) mg/dL POC Glucose (mg/dL) 276 H 273 H 324 H (75-99) mg/dL Calcium (8.4-10.2) mg/dL Total Protein (6.3-8.2) g/dL Albumin (3.5-5.0) g/dL 10/12/21 10/12/21 10/12/21 Range/Units 08:19 08:19 11:43 WBC 13.2 H (3.8-10.6) k/uL RBC 3.49 L (3.80-5.40) m/uL Hgb 10.0 L (11.4-16.0) gm/dL Hct 31.9 L (34.0-46.0) % Plt Count 127 L (150-450) k/uL Neutrophils # 12.0 H (1.3-7.7) k/uL Lymphocytes # 0.5 L (1.0-4.8) k/uL Sodium 136 L (137-145) mmol/L BUN 64 H (7-17) mg/dL Creatinine 1.44 H (0.52-1.04) mg/dL Glucose 217 H (74-99) mg/dL POC Glucose (mg/dL) 165 H (75-99) mg/dL Calcium 7.7 L (8.4-10.2) mg/dL Total Protein 6.1 L (6.3-8.2) g/dL Albumin 2.8 L (3.5-5.0) g/dL Microbiology - Last 24 Hours (Table) 10/06/21 15:10 Blood Culture - Preliminary Blood No Growth after 120 hours 10/06/21 15:05 Blood Culture - Preliminary Blood No Growth after 120 hours Assessment and Plan Assessment: Acute hypoxemic respiratory failure secondary to community-acquired pneumonia. COPD exacerbation. Chronic and ongoing tobacco dependence. History of lung cancer, status post chemoradiation, completed, February 2021. The patient was diagnosed with lung cancer 2017. History of protein C&S deficiency. History of DVT/pulmonary embolism. Hyperlipidemia. Hypothyroidism. History of seizure disorder. History of depression. Plan: Plan dated 10/09/2021. The patient is seen and evaluated in room 361. She remains on Pulmicort, Perforomist, DuoNeb, Solu-Medrol, and Rocephin. Clinically, she does feel better today. We'll continue to follow the patient and make recommendations where appropriate. The patient did ask for a nicotine patch. It was applied. Additional recommendations and suggestions are forthcoming. Prognosis is guarded. We will continue to see the patient and make recommendations were appropriate. Post discharge, she'll return to see her own human resources specialist. Plan dated 10/10/2021. The patient is again seen in room 361. She is examined. Her medications appear to be appropriate. We will continue to follow the patient and make saulo mmendations where appropriate. Prognosis is certainly guarded. She is counseled about the importance of smoking cessation. After discharge, the patient should follow-up with her own human resources specialist. The patient is wearing a nicotine patch. Plan dated 10/11/2021. The patient appears to be doing better. She's down to 4 L nasal cannula. Yesterday, she was on 6 L. Additional recommendations and suggestions are forthcoming. We will continue to follow the patient and make recommendations where appropriate. She can use the BiPAP at nighttime if she wishes. The rest of the medications are appropriate and include DuoNeb, long-acting beta agonist, inhaled corticosteroid, systemic corticosteroids, and antibiotics. Prognosis is guarded. The patient is counseled about the importance of smoking cessation. Plan dated 10/12/2021. The patient has been weaned down to 4 L nasal cannula. She did not use of BiPAP device last night. Labs, x-rays, and medications are all reviewed. The patient is doing much better. She is hoping to be discharged home the next day or 2. She should follow-up with her own human resources specialist. Additional recommendations and suggestions are forthcoming. Prognosis is guarded. She is counseled about the importance of smoking cessation. We will continue to follow the patient and make recommendations where appropriate. Time with Patient: Less than 30
[2021-10-12 16:52] LABS: Glucose,Whole Blood 311 mg/dL (75-99)
[2021-10-12 20:27] LABS: Glucose,Whole Blood 249 mg/dL (75-99)
[2021-10-12] MEDS: GABAPENTIN 300 MG CAP PO SCH (20:42)
[2021-10-12] MEDS: ASPIRIN 325 MG TAB PO SCH (20:42)
[2021-10-12] MEDS: PANTOPRAZOLE 40 MG TABLET PO SCH (20:42)
[2021-10-13 01:00] VITALS: TEMP 98.3
[2021-10-13 08:34] LABS: HCT 32.5 % (34.0-46.0); HGB 10.1 gm/dL (11.4-16.0); Hypochromasia Slight; MCV 90.2 fL (80.0-100.0); Mean Platelet Volume 8.4; Platelet Count 125 k/uL (150-450); RDW 15.3 % (11.5-15.5); WBC 16.5 k/uL (3.8-10.6)
[2021-10-13 08:43] LABS: Albumin 2.8 g/dL (3.5-5.0); Calcium 8.1 mg/dL (8.4-10.2); Potassium 3.9 mmol/L (3.5-5.1); Total Bilirubin 0.5 mg/dL (0.2-1.3); Total Protein 6.1 g/dL (6.3-8.2)
[2021-10-13] MEDS ORDERED: predniSONE 20 MG TAB ONE (09:00)
[2021-10-13] MEDS ORDERED: ATORVASTATIN 40 MG TAB ONE (09:00)
[2021-10-13] MEDS ORDERED: MONTELUKAST 10 MG TAB ONE (09:00)
[2021-10-13] MEDS ORDERED: NICOTINE 14MG/24HR PATCH TRANSDERM ONE (09:00)
[2021-10-13] MEDS ORDERED: LEVOTHYROXINE 25 MCG TAB ONE (09:00)
[2021-10-13] MEDS ORDERED: DILTIAZEM CD 180 MG CAP.ER.24H PO ONE (09:00)
[2021-10-13] MEDS ORDERED: ENOXAPARIN 120 MG/0.8 ML SYRINGE SQ ONE (09:00)
[2021-10-13] MEDS ORDERED: FUROSEMIDE 20 MG TAB ONE (09:00)
[2021-10-13] MEDS ORDERED: BACLOFEN 10 MG TAB ONE (09:00)
[2021-10-13] MEDS ORDERED: CITALOPRAM HYDROBROMIDE 20 MG TAB ONE (09:00)
[2021-10-13 10:48] LABS: Glucose,Whole Blood 157 mg/dL (75-99)
[2021-10-13 11:36] LABS: Glucose,Whole Blood 166 mg/dL (75-99)
[2021-10-13] MEDS: INSULIN ASPART (NovoLOG) 100 UNIT/ML VIAL SQ SCH ×2 (11:48→12:55)
[2021-10-13] MEDS: ATORVASTATIN 40 MG TAB PO SCH (11:48)
[2021-10-13] MEDS: CITALOPRAM HYDROBROMIDE 20 MG TAB PO SCH (11:48)
[2021-10-13] MEDS: LEVOTHYROXINE 25 MCG TAB PO SCH (11:48)
[2021-10-13] MEDS: DILTIAZEM CD 180 MG CAP.ER.24H PO SCH (11:49)
[2021-10-13] MEDS: BACLOFEN 10 MG TAB PO SCH (11:49)
[2021-10-13] MEDS: predniSONE 20 MG TAB PO SCH (11:50)
[2021-10-13] MEDS: NICOTINE 14MG/24HR PATCH TRANSDERM SCH (11:50)
[2021-10-13] MEDS: FUROSEMIDE 20 MG TAB PO SCH (11:50)
[2021-10-13] MEDS: ENOXAPARIN 120 MG/0.8 ML SYRINGE SQ SCH (11:50)
[2021-10-13] MEDS: MONTELUKAST 10 MG TAB PO SCH (11:50)
--- NOTE | 2021-10-13 12:36 | P.PN ---
Subjective Patient is seen in follow-up for acute kidney injury. Renal function stable. On oral Lasix. Denies shortness of breath. Oral intake fair. Blood pressure stable. Currently on 4 L nasal cannula. Vital signs are stable. General: Awake and alert. No acute distress. HEENT: Head exam is unremarkable. LUNGS: Breath sounds decreased. HEART: Rate and Rhythm are regular. ABDOMEN: Soft, obese. EXTREMITITES: 1+ edema. Objective - Vital Signs Vital signs: Vital Signs Temp 98.3 F 10/13/21 00:00 Pulse 76 10/13/21 00:00 Resp 18 10/13/21 00:00 BP 124/68 10/13/21 00:00 Pulse Ox 94 L 10/13/21 00:00 Intake & Output 10/12/21 10/13/21 10/13/21 18:59 06:59 18:59 Intake Total 180 10 Balance 180 10 Intake: IV 10 Invasive Line 4 10 Oral 180 Other: Voiding Method Bedside Commode Bedside Commode # Voids 1 2 3 # Bowel Movements 1 - Labs CBC & Chem 7: 10/13/21 07:00 10/13/21 07:00 Labs: Abnormal Lab Results - Last 24 Hours (Table) 10/12/21 10/12/21 10/13/21 Range/Units 16:50 20:23 06:07 WBC (3.8-10.6) k/uL RBC (3.80-5.40) m/uL Hgb (11.4-16.0) gm/dL Hct (34.0-46.0) % Plt Count (150-450) k/uL Sodium (137-145) mmol/L BUN (7-17) mg/dL Creatinine (0.52-1.04) mg/dL Glucose (74-99) mg/dL POC Glucose (mg/dL) 311 H 249 H 157 H (75-99) mg/dL Calcium (8.4-10.2) mg/dL Total Protein (6.3-8.2) g/dL Albumin (3.5-5.0) g/dL 10/13/21 10/13/21 10/13/21 Range/Units 07:00 07:00 11:35 WBC 16.5 H (3.8-10.6) k/uL RBC 3.60 L (3.80-5.40) m/uL Hgb 10.1 L (11.4-16.0) gm/dL Hct 32.5 L (34.0-46.0) % Plt Count 125 L (150-450) k/uL Sodium 136 L (137-145) mmol/L BUN 56 H (7-17) mg/dL Creatinine 1.43 H (0.52-1.04) mg/dL Glucose 113 H (74-99) mg/dL POC Glucose (mg/dL) 166 H (75-99) mg/dL Calcium 8.1 L (8.4-10.2) mg/dL Total Protein 6.1 L (6.3-8.2) g/dL Albumin 2.8 L (3.5-5.0) g/dL Microbiology - Last 24 Hours (Table) 10/06/21 15:10 Blood Culture - Final Blood No Growth after 144 hours 10/06/21 15:05 Blood Culture - Final Blood No Growth after 144 hours Assessment and Plan Plan: Assessment: 1. Acute kidney injury mostly prerenal secondary to hypoperfusion and pneumonia. Also component of cardiorenal syndrome. Creatinine peaked at 2.2 this admission and is stable at 1.43 today. Creatinine in October 2020 was 0.91. No hydronephrosis noted on kidney ultrasound. 2. Acute on chronic diastolic CHF with mild to moderate mitral regurgitation. 3. Acute hypoxic respiratory failure secondary to pneumonia/COPD on antibiotics. 4. Lower extremity edema. 5. Lung cancer. Oncology following. Plan: Increase Lasix to 20 mg twice daily. Low-salt diet. 1500 mL fluid restriction. Avoid nephrotoxins. Continue to monitor renal function and urine output. Repeat UA. Check UPC.
[2021-10-13 13:08] VITALS: BP 148/66; PULSE 88; RESP 16
--- NOTE | 2021-10-13 13:13 | P.DS ---
Providers Date of admission: 10/06/21 13:25 Expected date of discharge: 10/13/21 Attending physician: Janice Roche DO Consults: 10/06/21 13:35 Consult Physician Urgent Consulting Provider: Wes Brooks Consult Reason/Comments: Acute respiratory distress Do you want consulting provider notified?: Yes Consult Physician Urgent Consulting Provider: Lotus Maria Consult Reason/Comments: lung cancer Do you want consulting provider notified?: Yes 10/07/21 08:36 Consult Physician Routine Consulting Provider: Carla Westfall Consult Reason/Comments: PIERCE Do you want consulting provider notified?: Yes Primary care physician: Lise [facility] Course: History of present illness per H&P: Patient is a 55 yo CF patient of Dr. 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 In the ED she underwent an extensive evaluation. On arrival her pulse was 118 and respirations are up at 25. Laboratory analysis showed WBC 13, PT 14.7, INR 1.4 and ptt 84.8, sodium 133, bun 36, and cr 1.93. She was started on antibiotics. Her CXR demonstrated complete haziness of the left hemithorax. Her HR then increased and she was given a 1L bolus and pain medications. Patient seen and examined at bedside. She reports that she went to the gathering on Wednesday. By Wednesday she started having significant shortness breath. She reports that she's had fevers up to 102.7 at home. It is worse with movement and better with rest, however it is also exacerbated by lying flat. She has a dry nonproductive cough. She reports she got her cold, flu, and pneumonia shot. She is having a hard time eating because she is so winded. She is feeling very tired and overall weak. She reports she has been taking all medications as prescribed and has not missed any doses of her Lovenox. 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 Interval history: patient was seen and examined at bedside. She is feeling better. she is currently on 4 L nasal cannula. Physical examination: General: non toxic, no distress, appears at stated age. Obese Derm: warm, dry Head: atraumatic, normocephalic, symmetric Eyes: EOMI, no lid lag, anicteric sclera, pupils equal round reactive to light ENT: Nose and ears atraumatic, no thrush, no pharyngeal erythema Neck: No thyromegaly, no cervical lymphadenopathy, trachea midline, supple Mouth: no lip lesion, mucus membranes moist Cardiovascular: S1S2 reg, no murmur, positive posterior tibial pulse bilateral, no edema, capillary refill less than 2 seconds Lungs: clear to ascultation bilateral, no ronchi, no rales, no wheeze, no accessory muscle use Abdominal: soft, nontender to palpation, no guarding, no appreciable organomegaly, normal bowel sounds Ext: no gross muscle atrophy, muscle strength muscle strength 5 out of 5 in all 4 extremities, no contractures Neuro: CN II-XI grossly intact, light touch intact all 4 extremities, finger to nose within normal limits, Psych: Alert, oriented, appropriate affect ssessment and Plan Assessment: #Acute hypoxic respiratory failure Due to left-sided pneumonia and acute exacerbation of COPD in the setting of non-small lung cancer Pulmonary following Continue antibiotics, ceftriaxone and Zithromax started 10/06/21 Sputum cultures and Gram stain Blood cultures: No growth to date Influenza and COVID-19 negative Pro calcitonin 4.09 Patient was antibiotic treatment for pneumonia Resume prednisone 40 mg daily, bronchodilators Patient will be discharged home with home oxygen #Ongoing tobacco abuse -Patient was counseled regarding smoking cessation. -She is on nicotine patch #Paroxysmal Atrial flutter, new diagnosis -Normal sinus rhythm -Patient is already on full dose Lovenox for history of DVT Cardiology evaluated, transition to oral Cardizem Normal TSH Echocardiogram: Mild left ventricular concentric hypertrophy Thickening of the mitral valve with mild to moderate mitral regurgitation. EF 55 6%. #Acute kidney injury -Stable - Avoid nephrotoxic agents -Renal ultrasound without obstruction -Nephrology started Lasix for lower extremity edema #Anemia and thrombocytopenia, appears better than baseline Oncology following #Hyponatremia -Improved -Possibly secondary to poor solute intake versus fluid overload -Repeat in a.m. #Hx of venous thromboembolism, with protein C and protein S deficiency -Continue with Lovenox #Leukocytosis secondary steroid -Patient afebrile Chronic: GERD Seizure BLANCA TIA Patient Condition at Discharge: Stable Plan - Discharge Summary Discharge Rx Participant: No New Discharge Prescriptions: New Diltiazem Cd [Cardizem CD] 180 mg PO DAILY #30 predniSONE [Deltasone] 40 mg PO DAILY 3 Days tab Furosemide [Lasix] 20 mg PO DAILY 30 Days tab Continue HYDROcodone/APAP 10-325MG [[place] 10-325] 1 tab PO TID PRN PRN Reason: Pain Citalopram Hydrobromide [CeleXA] 20 mg PO W/BRKFST Pantoprazole Sodium 20 mg PO HS Tiotropium 18 Mcg/Puff [Spiriva] 1 cap INHALATION RT-HS Levothyroxine Sodium [Synthroid] 25 mcg PO AC-BRKFST Albuterol Nebulized [Ventolin Nebulized] 2.5 mg INHALATION RT-TID PRN PRN Reason: Shortness Of Breath levETIRAcetam [Keppra] 750 mg PO BID Gabapentin 300 mg PO HS Montelukast [Singulair] 10 mg PO DAILY@1200 Albuterol Sulfate [Ventolin HFA] 1 - 2 puff INHALATION RT-Q6H PRN PRN Reason: Shortness Of Breath Atorvastatin [Lipitor] 40 mg PO W/BRKFST Budesonide/Formoterol Fumarate [Symbicort 160-4.5 Mcg Inhaler] 2 puff INHALATION RT-DAILY Vitamin B Complex 1 cap PO W/BRKFST Ergocalciferol [Vitamin D2 (1250 Mcg = 54996 Iu)] 1,250 mcg PO TU Baclofen [Lioresal] 20 mg PO BID Aspirin 325 mg PO HS Enoxaparin [Lovenox] 200 mg SQ DAILY Discontinued Furosemide [Lasix] 40 mg PO Q48H Potassium Chloride [Potassium Chloride ER] 10 meq PO BID-W/MEALS@,12 Hydroxychloroquine Sulfate [Plaquenil] 200 mg PO BID Furosemide [Lasix] 80 mg PO Q48H Discharge Medication List Citalopram Hydrobromide [CeleXA] 20 mg PO W/BRKFST 11/16/18 [History] HYDROcodone/APAP 10-325MG [[place] 10-325] 1 tab PO TID PRN 11/16/18 [History] Pantoprazole Sodium 20 mg PO HS 11/16/18 [History] Tiotropium 18 Mcg/Puff [Spiriva] 1 cap INHALATION RT-HS 11/16/18 [History] Albuterol Sulfate [Ventolin HFA] 1 - 2 puff INHALATION RT-Q6H PRN 11/14/20 [History] Levothyroxine Sodium [Synthroid] 25 mcg PO AC-BRKFST 11/14/20 [History] Albuterol Nebulized [Ventolin Nebulized] 2.5 mg INHALATION RT-TID PRN 01/02/21 [History] Atorvastatin [Lipitor] 40 mg PO W/BRKFST 01/02/21 [History] Aspirin 325 mg PO HS 10/06/21 [History] Baclofen [Lioresal] 20 mg PO BID 10/06/21 [History] Budesonide/Formoterol Fumarate [Symbicort 160-4.5 Mcg Inhaler] 2 puff INHALATION RT-DAILY 10/06/21 [History] Enoxaparin [Lovenox] 200 mg SQ DAILY 10/06/21 [History] Ergocalciferol [Vitamin D2 (1250 Mcg = 68100 Iu)] 1,250 mcg PO TU 10/06/21 [History] Gabapentin 300 mg PO HS 10/06/21 [History] Montelukast [Singulair] 10 mg PO DAILY@1200 10/06/21 [History] Vitamin B Complex 1 cap PO W/KT 10/06/21 [History] levETIRAcetam [Keppra] 750 mg PO BID 10/06/21 [History] Diltiazem Cd [Cardizem CD] 180 mg PO DAILY #30 10/13/21 [Rx] Furosemide [Lasix] 20 mg PO DAILY 30 Days tab 10/13/21 [Rx] predniSONE [Deltasone] 40 mg PO DAILY 3 Days tab 10/13/21 [Rx] Follow up Appointment(s)/Referral(s): Lise Urias MD [Primary Care Provider] - 1-2 days [facility], [NON-STAFF] - Lotus Maria MD [STAFF PHYSICIAN] - 3 Weeks (Pt due for surveillance scan for NSCLC. Will sched for a few weeks from now and plan f/u with Dr. Maria soon thereafter for results.)
--- NOTE | 2021-10-13 13:56 | P.PN ---
Subjective Progress Note Date: 10/13/21 10/13/2021, I'm seeing the patient for a follow-up. This is a morbidly obese 55-year-old female patient with has a body mass index of 54.1. The patient presented with worsening shortness of breath. The patient is known to have underlying lung cancer under the care of Dr. Maria and the patient is treated with a combination of chemoradiation therapy. The patient also has a remote history of DVT and pulmonary embolism maintained on anticoagulation with Eliquis on outpatient basis. The patient presented with worsening shortness of breath. She had a negative test for COVID 19 and flu. She was given IV Rocephin. She is also on bronchodilators and IV Solu-Medrol. He is already feeling better and she is currently on 4 L of O2 by nasal cannula. She was taken off the IV Solu Medrol and she was started on prednisone burst taper starting with 40 mg. She is also on Lasix 20 mg by mouth twice a day. Her chest x-ray on 10/09/2019 showed persistent diffuse opacification of left hemithorax which may reflect layering pleural effusion as well as underlying consolidative process. There is also increasing patchy density throughout the right lung. The echocardiogram showed normal ejection fraction of 55-60%. There was [id number] mitral regurgitation, ejection fraction was in the order of 55-60%. The white cell count is at 16.5 with a hemoglobin of 10.1. BUN is a 56 with a creatinine of 1.4. Noted the acute kidney injury has been improving. The pro calcitonin level at the time of admission was 4.09. Objective - Vital Signs Vital signs: Vital Signs Temp 98.3 F 10/13/21 00:00 Pulse 88 10/13/21 12:00 Resp 16 10/13/21 12:00 BP 148/66 10/13/21 12:00 Pulse Ox 94 L 10/13/21 12:00 Intake & Output 10/12/21 10/13/21 10/13/21 18:59 06:59 18:59 Intake Total 180 10 Balance 180 10 Intake: IV 10 Invasive Line 4 10 Oral 180 Other: Voiding Method Bedside Commode Bedside Commode # Voids 1 2 3 # Bowel Movements 1 - Exam No acute distress, oriented 3. Currently on nasal O2, at 4 L. Saturations are 94 %. HEENT examination is grossly unremarkable. Neck supple. Full range of motion. No adenopathy thyromegaly or neck vein distention. Cardiovascular examination reveals regular rhythm rate. S1-S2 normal. No S3 or S4. No discernible murmur noted. Heart sounds are distant. Heart rate 84 bpm. Lungs reveal scattered rhonchi bilaterally, and diminished breath sounds in the left chest. Scattered wheezes are noted. No crackles. Breath sounds are improved. Abdomen soft bowel sounds are heard. No masses or tenderness. Extremities are intact. No cyanosis clubbing or edema. Skin is without rash or lesion. Neurologic examination is brief but nonfocal. - Labs CBC & Chem 7: 10/13/21 07:00 10/13/21 07:00 Labs: Abnormal Lab Results - Last 24 Hours (Table) 10/12/21 10/12/21 10/13/21 Range/Units 16:50 20:23 06:07 WBC (3.8-10.6) k/uL RBC (3.80-5.40) m/uL Hgb (11.4-16.0) gm/dL Hct (34.0-46.0) % Plt Count (150-450) k/uL Sodium (137-145) mmol/L BUN (7-17) mg/dL Creatinine (0.52-1.04) mg/dL Glucose (74-99) mg/dL POC Glucose (mg/dL) 311 H 249 H 157 H (75-99) mg/dL Calcium (8.4-10.2) mg/dL Total Protein (6.3-8.2) g/dL Albumin (3.5-5.0) g/dL 10/13/21 10/13/21 10/13/21 Range/Units 07:00 07:00 11:35 WBC 16.5 H (3.8-10.6) k/uL RBC 3.60 L (3.80-5.40) m/uL Hgb 10.1 L (11.4-16.0) gm/dL Hct 32.5 L (34.0-46.0) % Plt Count 125 L (150-450) k/uL Sodium 136 L (137-145) mmol/L BUN 56 H (7-17) mg/dL Creatinine 1.43 H (0.52-1.04) mg/dL Glucose 113 H (74-99) mg/dL POC Glucose (mg/dL) 166 H (75-99) mg/dL Calcium 8.1 L (8.4-10.2) mg/dL Total Protein 6.1 L (6.3-8.2) g/dL Albumin 2.8 L (3.5-5.0) g/dL Microbiology - Last 24 Hours (Table) 10/06/21 15:10 Blood Culture - Final Blood No Growth after 144 hours 10/06/21 15:05 Blood Culture - Final Blood No Growth after 144 hours Assessment and Plan Plan: Acute hypoxemic respiratory failure secondary to community-acquired pneumonia. The patient is known to have underlying lung cancer. The patient's completed chemoradiation therapy. There is significant opacification of the left lung in addition to patchy consolidation of the right lower lobe. The pro calcitonin level was elevated at time of admission and the patient was treated with IV antibiotics. The patient remains on IV Rocephin for now. Clinically improved and the patient is currently on 4 L O2 her pulse ox of 97%. Note that the patient's workup has been done through [facility]. Her post graduate intern is Dr. Quick and the patient follows up with Dr. Maria her oncologist. COPD exacerbation, improving Chronic and ongoing tobacco dependence. History of lung cancer, status post chemoradiation, completed, February 2021. The patient was diagnosed with lung cancer 2017. History of protein C&S deficiency. History of DVT/pulmonary embolism. Hyperlipidemia. Hypothyroidism. History of seizure disorder. History of depression. Acute kidney injury, improving Plan Continue bronchodilators Switch this patient oral prednisone burst taper May need to decide on outpatient antibiotic treatment on outpatient basis. The patient responded to IV Rocephin. May switch this patient to Augmentin that time of discharge. Continue Lovenox regarding her previous history of DVT and pulmonary embolism Acute kidney injury is improving The patient will likely need a follow-up CAT scan of the chest. We'll wait for the renal function improved further and later on the CAT scan with contrast for further characterization and progression of her underlying lung cancer. Arrange for home O2
[2021-10-13 20:28] LABS: Anisocytosis (M) Present; Band Neutrophils % 5 %; Lymphocytes # (M) 1.32 k/uL (1.0-4.8); Monocytes # (M) 0.83 k/uL (0-1.0); Neutrophils % (M) 82 %; Nucleated Red Blood Cells 0 /100 WBC (0-0); Total Cells Counted 100
[2021-10-13] MEDS ORDERED: FUROSEMIDE 20 MG TAB PO SCH (21:00)
[2021-10-14] MEDS ORDERED: ENOXAPARIN 100 MG/ML SYRINGE SQ SCH (09:00)
== END 2021-10-13 14:11 | disposition home or self-care (01) | DRG 193 ==
LOC: EC 11:58 → 5NMEDONC 13:25 → 3SCARD 16:17
PROVIDERS: ADMIT Internal Medicine; ATTEND Internal Medicine
PROC: 5A09357 Assistance with Respiratory Ventilation, Less than 24 Consecutive Hours, Continuous Positive Airway Pressure (ICD-10-PCS; principal; 2021-10-08)
PROC: 5A0935A Assistance with Respiratory Ventilation, Less than 24 Consecutive Hours, High Flow/Velocity Cannula (ICD-10-PCS; 2021-10-09)
DX: J18.9 Pneumonia, unspecified organism (principal); I50.33 Acute on chronic diastolic (congestive) heart failure; J96.01 Acute respiratory failure with hypoxia; N17.0 Acute kidney failure with tubular necrosis; D68.62 Lupus anticoagulant syndrome; Z68.43 Body mass index [BMI] 50.0-59.9, adult; E87.1 Hypo-osmolality and hyponatremia; E87.2 Acidosis; I13.0 Hypertensive heart and chronic kidney disease with heart failure and stage 1 through stage 4 chronic kidney disease, or unspecified chronic kidney disease; I48.3 Typical atrial flutter; J44.1 Chronic obstructive pulmonary disease with (acute) exacerbation; J44.0 Chronic obstructive pulmonary disease with (acute) lower respiratory infection; C34.90 Malignant neoplasm of unspecified part of unspecified bronchus or lung; Z92.21 Personal history of antineoplastic chemotherapy; D64.9 Anemia, unspecified; Z20.822 Contact with and (suspected) exposure to COVID-19; D69.6 Thrombocytopenia, unspecified; E03.9 Hypothyroidism, unspecified; E66.01 Morbid (severe) obesity due to excess calories; E78.5 Hyperlipidemia, unspecified; F17.200 Nicotine dependence, unspecified, uncomplicated; G47.33 Obstructive sleep apnea (adult) (pediatric); N18.9 Chronic kidney disease, unspecified; I34.0 Nonrheumatic mitral (valve) insufficiency; K21.9 Gastro-esophageal reflux disease without esophagitis; M35.00 Sjogren syndrome, unspecified; Z79.01 Long term (current) use of anticoagulants; Z79.51 Long term (current) use of inhaled steroids; Z79.82 Long term (current) use of aspirin; Z79.890 Hormone replacement therapy; Z79.899 Other long term (current) drug therapy; Z81.3 Family history of other psychoactive substance abuse and dependence; Z81.1 Family history of alcohol abuse and dependence; Z82.3 Family history of stroke; Z86.711 Personal history of pulmonary embolism; Z86.718 Personal history of other venous thrombosis and embolism; Z86.73 Personal history of transient ischemic attack (TIA), and cerebral infarction without residual deficits; Z92.3 Personal history of irradiation; Z85.118 Personal history of other malignant neoplasm of bronchus and lung; G40.909 Epilepsy, unspecified, not intractable, without status epilepticus
CPT/HCPCS: 36415; 36600; 71045; 71046; 76604; 76770; 80048; 80053; 81001; 82607; 82728; 82747; 82805; 83540; 83550; 83605; 83735; 83880; 84100; 84145; 84443; 84484; 85025; 85027; 85045; 85610; 85730; 86140; 87040; 87449; 87502; 87635; 93005; 93306; 94640; 94660; 94760; 96365; 96366; 96368; 96375; 99285

== ENCOUNTER 2021-10-14 09:33 | Inpatient (IN) | payer MEDICARE, OTHER ==
[2021-10-14 10:21] LABS: HGB 10.8 gm/dL (11.4-16.0); INR 1.1 (<1.2); MCH 28.7 pg (25.0-35.0); MCHC 32.9 g/dL (31.0-37.0); MCV 87.2 fL (80.0-100.0); Mean Platelet Volume 8.5; Partial Thromboplastin Time 46.7 sec (22.0-30.0); Platelet Count 115 k/uL (150-450); Prothrombin Time 12.1 sec (9.0-12.0); RBC 3.78 m/uL (3.80-5.40); RDW 15.5 % (11.5-15.5); WBC 16.2 k/uL (3.8-10.6)
[2021-10-14 10:32] LABS: Albumin 2.6 g/dL (3.5-5.0); Potassium 3.6 mmol/L (3.5-5.1); Total Bilirubin 0.6 mg/dL (0.2-1.3); Total Protein 5.9 g/dL (6.3-8.2)
--- NOTE | 2021-10-14 10:33 | ED ---
SOB HPI - General Chief Complaint: Shortness of Breath Stated Complaint: SERGE Time Seen by Provider: 10/14/21 09:35 Source: EMS Mode of arrival: EMS Limitations: no limitations - History of Present Illness Initial Comments: 55-year-old female with past medical history of lung cancer, PE on Lovenox, CVA, COPD who presents to the emergency department from home. Patient was just recently hospitalized from the to the for pneumonia. She was disc harged last night on oxygen. She has been wearing her 4 L however continues to report to shortness of breath. She was discharged and instructed to take prednisone, Lasix and Cardizem due to an episode of A. fib with rapid ventricular rate which she had while hospitalized. Patient has not taken her medications yet today. She continues to have a nonproductive cough. Denies any worsening of her lower extremity edema. No chest pain. When EMS found the patient at the house her oxygen level was 63%. No other alleviating, precipitating or modifying factors - Related Data Home Medications Medication Instructions Recorded Confirmed Citalopram Hydrobromide [CeleXA] 20 mg PO W/BRKFST 11/16/18 10/14/21 HYDROcodone/APAP 10-325MG [[place] 1 tab PO TID PRN 11/16/18 10/14/21 10-325] Pantoprazole Sodium 20 mg PO HS 11/16/18 10/14/21 Tiotropium 18 Mcg/Puff [Spiriva] 1 cap INHALATION RT-HS 11/16/18 10/14/21 Albuterol Sulfate [Ventolin HFA] 1 - 2 puff INHALATION RT-Q6H PRN 11/14/20 10/14/21 Levothyroxine Sodium [Synthroid] 25 mcg PO AC-BRKFST 11/14/20 10/14/21 Albuterol Nebulized [Ventolin 2.5 mg INHALATION RT-TID PRN 01/02/21 10/14/21 Nebulized] Atorvastatin [Lipitor] 40 mg PO W/BRKFST 01/02/21 10/14/21 Aspirin 325 mg PO HS 10/06/21 10/14/21 Baclofen [Lioresal] 20 mg PO BID 10/06/21 10/14/21 Budesonide/Formoterol Fumarate 2 puff INHALATION RT-DAILY 10/06/21 10/14/21 [Symbicort 160-4.5 Mcg Inhaler] Enoxaparin [Lovenox] 200 mg SQ DAILY 10/06/21 10/14/21 Ergocalciferol [Vitamin D2 (1250 1,250 mcg PO TU 10/06/21 10/14/21 Mcg = 91767 Iu)] Gabapentin 300 mg PO HS 10/06/21 10/14/21 Montelukast [Singulair] 10 mg PO DAILY@1200 10/06/21 10/14/21 Vitamin B Complex 1 cap PO W/BRKFST 10/06/21 10/14/21 levETIRAcetam [Keppra] 750 mg PO BID 10/06/21 10/14/21 Previous Rx's Medication Instructions Recorded Diltiazem Cd [Cardizem CD] 180 mg PO DAILY #30 10/13/21 Furosemide [Lasix] 20 mg PO DAILY 30 Days tab 10/13/21 predniSONE [Deltasone] 40 mg PO DAILY 3 Days tab 10/13/21 Allergies Allergy/AdvReac Type Severity Reaction Status Date / Time doxycycline Allergy Rash/Hives Verified 10/14/21 10:33 Penicillins Allergy Rash/Hives, Verified 10/14/21 10:33 "hard to heal" Sulfa (Sulfonamide Allergy Rash/Hives,"hard Verified 10/14/21 10:33 Antibiotics) to heal" wool Allergy Rash/Hives, Verified 10/14/21 10:33 itching ivory soap Allergy Rash/Hives, Uncoded 10/14/21 10:33 itching Review of Systems ROS Statement: Those systems with pertinent positive or pertinent negative responses have been documented in the HPI. ROS Other: All systems not noted in ROS Statement are negative. Past Medical History Past Medical History: Blood Disorder, Cancer, COPD, CVA/TIA, Deep Vein Thrombosis (DVT), GERD/Reflux, Pneumonia, Pulmonary Embolus (PE), Seizure Disorder, Sleep Apnea/CPAP/BIPAP, Thyroid Disorder Additional Past Medical History / Comment(s): L lung cancer with radiation/chemo and pt completed 01/2021, TIA-no residual effects, blood clot left leg and PE left lung, BLANCA with Cpap, last seizure 6-7 years ago, bronchitis, protein S and C deficiency, bilateral ankle/pedal edema, past hx falls, DDD, chronic back and bilateral foot pain, weakness in rt legs thought d/t pinched nerve in back, vertigo. History of Any Multi-Drug Resistant Organisms: None Reported Past Surgical History: Tubal Ligation, Uterine Ablation Additional Past Surgical History / Comment(s): D&C, bronchoscopy with L lung biopsy x 2 Past Anesthesia/Blood Transfusion Reactions: No Reported Reaction Past Psychological History: Depression Smoking Status: Current every day smoker - Past Family History Mother Family Medical History: CVA/TIA Additional Family Medical History / Comment(s): Mother of a CVA at the age of 71 yrs. Brother(s) Family Medical History: No Reported History Additional Family Medical History / Comment(s): Patient has no children. Father Additional Family Medical History / Comment(s): Father was an alcoholic and drug addict. General Exam Limitations: no limitations General appearance: alert, in distress Head exam: Present: atraumatic, normocephalic, normal inspection Eye exam: Present: normal appearance, PERRL, EOMI. Absent: scleral icterus, conjunctival injection, periorbital swelling ENT exam: Present: mucous membranes dry Respiratory exam: Present: rales (right lung), accessory muscle use, decreased breath sounds Cardiovascular Exam: Present: tachycardia, irregular rhythm GI/Abdominal exam: Present: soft, normal bowel sounds. Absent: distended, tenderness, guarding, rebound, rigid Extremities exam: Present: pedal edema Neurological exam: Present: alert, oriented X3, CN II-XII intact Psychiatric exam: Present: normal affect, normal mood Skin exam: Present: warm, dry, intact, normal color. Absent: rash Course Vital Signs 10/14/21 10/14/21 10/14/21 09:36 09:37 10:00 Temperature 97.6 F Pulse Rate 100 105 H Respiratory 28 H 22 Rate Blood Pressure 116/65 110/59 O2 Sat by Pulse 91 L 84 L 86 L Oximetry 10/14/21 10/14/21 10/14/21 11:00 11:56 12:00 Temperature Pulse Rate 92 106 H 101 H Respiratory 28 H 19 31 H Rate Blood Pressure 122/60 92/40 92/40 O2 Sat by Pulse 94 L 91 L 94 L Oximetry 10/14/21 10/14/21 10/14/21 12:21 12:31 13:00 Temperature Pulse Rate 93 96 92 Respiratory 27 H Rate Blood Pressure 121/64 O2 Sat by Pulse 98 Oximetry 10/14/21 10/14/21 10/14/21 13:13 14:00 14:43 Temperature Pulse Rate 104 H 91 102 H Respiratory 32 H 27 H 31 H Rate Blood Pressure 129/67 109/62 122/75 O2 Sat by Pulse 96 98 92 L Oximetry 10/14/21 10/14/21 10/14/21 15:00 16:00 16:11 Temperature Pulse Rate 87 104 H 96 Respiratory 25 H 21 28 H Rate Blood Pressure 122/75 104/82 122/76 O2 Sat by Pulse 96 86 L 91 L Oximetry 10/14/21 10/14/21 10/14/21 16:48 16:58 17:00 Temperature Pulse Rate 90 90 92 Respiratory 27 H Rate Blood Pressure 132/82 O2 Sat by Pulse 94 L Oximetry 10/14/21 10/14/21 18:00 19:00 Temperature Pulse Rate 86 81 Respiratory 27 H 23 Rate Blood Pressure 127/72 125/80 O2 Sat by Pulse 93 L 94 L Oximetry Medical Decision Making - Medical Decision Making Upon arrival patient is probably placed in trauma 1. A thorough history and physical exam was performed. Patient does have oxygen saturation of 83% on 6 L. We do attempt to place the patient on high flow oxygen with improvement to only 88%. Patient does not have significant work of breathing however due to hypoxia she is placed on BiPAP. Laboratory studies are conducted and reviewed. White count 16.2. Creatinine 1.4. Troponin 0.141. Patient does have an episode of A. fib with rapid ventricular rate however she immediately converts after 5 seconds. Chest x-ray demonstrates bilateral opacities. Patient sent back for a CT which demonstrates pneumonia. Difficulty excluding underlying mass. No pulmonary embolism. Patient is started on Levaquin, DuoNeb breathing treatment and steroids. As there is concern for pulmonary edema the patient is only started on 130 mL of normal saline per hour without a bolus. I recommended admission and spoke with Dr. Elizondo. He agreed to admit the patient. Pulmonology and cardiology placed on consult. Patient remained in stable condition on BiPAP awaiting a bed on the floor - Lab Data Result diagrams: 10/14/21 09:55 10/14/21 09:55 Lab Results 10/14/21 10/14/21 10/14/21 Range/Units 09:55 09:55 09:55 WBC 16.2 H (3.8-10.6) k/uL RBC 3.78 L (3.80-5.40) m/uL Hgb 10.8 L (11.4-16.0) gm/dL Hct 33.0 L (34.0-46.0) % MCV 87.2 (80.0-100.0) fL MCH 28.7 (25.0-35.0) pg MCHC 32.9 (31.0-37.0) g/dL RDW 15.5 (11.5-15.5) % Plt Count 115 L (150-450) k/uL MPV 8.5 Neutrophils % (Manual) 91 % Lymphocytes % (Manual) 7 % Monocytes % (Manual) 2 % Neutrophils # (Manual) 14.74 H (1.3-7.7) k/uL Lymphocytes # (Manual) 1.13 (1.0-4.8) k/uL Monocytes # (Manual) 0.32 (0-1.0) k/uL Nucleated RBCs 0 (0-0) /100 WBC Manual Slide Review Performed PT 12.1 H (9.0-12.0) sec INR 1.1 (<1.2) APTT 46.7 H (22.0-30.0) sec Sodium 139 (137-145) mmol/L Potassium 3.6 (3.5-5.1) mmol/L Chloride 106 (98-107) mmol/L Carbon Dioxide 26 (22-30) mmol/L Anion Gap 7 mmol/L BUN 56 H (7-17) mg/dL Creatinine 1.47 H (0.52-1.04) mg/dL Est GFR (CKD-EPI)AfAm 46 (>60 ml/min/1.73 sqM) Est GFR (CKD-EPI)NonAf 40 (>60 ml/min/1.73 sqM) Glucose 122 H (74-99) mg/dL Plasma Lactic Acid Leo (0.7-2.0) mmol/L Calcium 8.0 L (8.4-10.2) mg/dL Total Bilirubin 0.6 (0.2-1.3) mg/dL AST 36 (14-36) U/L ALT 26 (4-34) U/L Alkaline Phosphatase 71 (38-126) U/L Troponin I (0.000-0.034) ng/mL NT-Pro-B Natriuret Pep pg/mL Total Protein 5.9 L (6.3-8.2) g/dL Albumin 2.6 L (3.5-5.0) g/dL Procalcitonin (0.02-0.09) ng/mL 10/14/21 10/14/21 10/14/21 Range/Units 09:55 09:55 09:55 WBC (3.8-10.6) k/uL RBC (3.80-5.40) m/uL Hgb (11.4-16.0) gm/dL Hct (34.0-46.0) % MCV (80.0-100.0) fL MCH (25.0-35.0) pg MCHC (31.0-37.0) g/dL RDW (11.5-15.5) % Plt Count (150-450) k/uL MPV Neutrophils % (Manual) % Lymphocytes % (Manual) % Monocytes % (Manual) % Neutrophils # (Manual) (1.3-7.7) k/uL Lymphocytes # (Manual) (1.0-4.8) k/uL Monocytes # (Manual) (0-1.0) k/uL Nucleated RBCs (0-0) /100 WBC Manual Slide Review PT (9.0-12.0) sec INR (<1.2) APTT (22.0-30.0) sec Sodium (137-145) mmol/L Potassium (3.5-5.1) mmol/L Chloride (98-107) mmol/L Carbon Dioxide (22-30) mmol/L Anion Gap mmol/L BUN (7-17) mg/dL Creatinine (0.52-1.04) mg/dL Est GFR (CKD-EPI)AfAm (>60 ml/min/1.73 sqM) Est GFR (CKD-EPI)NonAf (>60 ml/min/1.73 sqM) Glucose (74-99) mg/dL Plasma Lactic Acid Leo 1.8 (0.7-2.0) mmol/L Calcium (8.4-10.2) mg/dL Total Bilirubin (0.2-1.3) mg/dL AST (14-36) U/L ALT (4-34) U/L Alkaline Phosphatase (38-126) U/L Troponin I 0.141 H* (0.000-0.034) ng/mL NT-Pro-B Natriuret Pep 3850 pg/mL Total Protein (6.3-8.2) g/dL Albumin (3.5-5.0) g/dL Procalcitonin (0.02-0.09) ng/mL 10/14/21 Range/Units 09:55 WBC (3.8-10.6) k/uL RBC (3.80-5.40) m/uL Hgb (11.4-16.0) gm/dL Hct (34.0-46.0) % MCV (80.0-100.0) fL MCH (25.0-35.0) pg MCHC (31.0-37.0) g/dL RDW (11.5-15.5) % Plt Count (150-450) k/uL MPV Neutrophils % (Manual) % Lymphocytes % (Manual) % Monocytes % (Manual) % Neutrophils # (Manual) (1.3-7.7) k/uL Lymphocytes # (Manual) (1.0-4.8) k/uL Monocytes # (Manual) (0-1.0) k/uL Nucleated RBCs (0-0) /100 WBC Manual Slide Review PT (9.0-12.0) sec INR (<1.2) APTT (22.0-30.0) sec Sodium (137-145) mmol/L Potassium (3.5-5.1) mmol/L Chloride (98-107) mmol/L Carbon Dioxide (22-30) mmol/L Anion Gap mmol/L BUN (7-17) mg/dL Creatinine (0.52-1.04) mg/dL Est GFR (CKD-EPI)AfAm (>60 ml/min/1.73 sqM) Est GFR (CKD-EPI)NonAf (>60 ml/min/1.73 sqM) Glucose (74-99) mg/dL Plasma Lactic Acid Leo (0.7-2.0) mmol/L Calcium (8.4-10.2) mg/dL Total Bilirubin (0.2-1.3) mg/dL AST (14-36) U/L ALT (4-34) U/L Alkaline Phosphatase (38-126) U/L Troponin I (0.000-0.034) ng/mL NT-Pro-B Natriuret Pep pg/mL Total Protein (6.3-8.2) g/dL Albumin (3.5-5.0) g/dL Procalcitonin 0.34 H (0.02-0.09) ng/mL - EKG Data EKG Comments: EKG demonstrates sinus tachycardia with a rate of 104. Urine of a 133. QRS 87. QTC of 395. No acute ST segment elevations or depressions Critical Care Time Critical Care Time: Yes Critical Care Time: 35 minutes Disposition Clinical Impression: Pneumonia, Lung cancer, Acute respiratory distress, Hypoxia, BiPAP (biphasic positive airway pressure) dependence Disposition: ADMITTED IP TO THIS HOSP Condition: Stable Is patient prescribed a controlled substance at d/c from ED?: No Decision to Admit Reason: Admit from EC Decision Date: 10/14/21 Decision Time: 12:49
[2021-10-14 10:48] LABS: Lymphocytes # (M) 1.13 k/uL (1.0-4.8); Monocytes # (M) 0.32 k/uL (0-1.0); Neutrophils # (M) 14.74 k/uL (1.3-7.7); Neutrophils % (M) 91 %; Nucleated Red Blood Cells 0 /100 WBC (0-0); Total Cells Counted 100
--- NOTE | 2021-10-14 10:51 | XR ---
EXAMINATION TYPE: XR chest 1V portable DATE OF EXAM: 10/14/2021 COMPARISON: Chest x-ray 10/08/2021 HISTORY: Shortness of breath TECHNIQUE: Single frontal view of the chest is obtained. FINDINGS: Bilateral airspace disease is present. There are overlying artifacts. No evident pneumotho rax or pleural effusion. Heart is obscured. IMPRESSION: Correlate for pneumonia, edema
[2021-10-14] MEDS ORDERED: SODIUM CHLORIDE 0.9% 1,000 ML IV SCH (12:00)
[2021-10-14] MEDS ORDERED: LEVOFLOXACIN 750MG-D5W PMX 750 MG in DEXTROSE/WATER 1 150ML.BAG IVPB STA (12:01)
[2021-10-14] MEDS ORDERED: IPRATROPIUM-ALBUTEROL 3 ML NEB INHALATION STA (12:01)
--- NOTE | 2021-10-14 13:20 | CT ---
EXAMINATION TYPE: CT chest angio for PE DATE OF EXAM: 10/14/2021 COMPARISON: Chest x-ray same date HISTORY: hypoxia, shortness of breath, hx pe CT DLP: 889.2 mGycm Automated exposure control for dose reduction was used. CONTRAST: CT Chest for pulmonary embolism performed with with IV Contrast, patient injected with 80ML mL of Iso lauren 370. Three-dimensional reconstructions were performed and reviewed on an alternate workstation FINDINGS: LUNGS: The lungs show bilateral airspace disease as noted on prior exam. Bilateral areas of consolida tion are noted, there is no pleural effusion or pneumothorax seen. Bilateral lungs show pulmonary nod ules. The tracheobronchial tree is patent. MEDIASTINUM: There is less than satisfactory satisfactory enhancement of the pulmonary artery and its branches, there is artifact over the exam. Suspect hilar adenopathy may be present on the right. No pericardial effusion is seen. AORTA: No additional significant abnormality is seen. OTHER: Spleen is enlarged. Suspect portal adenopathy is present. IMPRESSION: Correlate for pneumonia, difficult to exclude underlying mass, follow-up recommended, indeterminate p ulmonary nodules consistent with metastatic disease and splenomegaly. No gross pulmonary embolism shellie trally, exam is limited to exclude pulmonary embolus however
[2021-10-14] MEDS ORDERED: NALOXONE 0.4 MG/ML 1 ML VIAL IV PRN (13:22)
[2021-10-14] MEDS ORDERED: methylPREDNISolone SOD SUCCI 125 MG/2 ML VIAL IV STA (13:26)
[2021-10-14] MEDS ORDERED: ERGOCALCIFEROL 1,250 MCG (50,000 IU) CAPSULE PO SCH (14:15)
[2021-10-14] MEDS ORDERED: IPRATROPIUM-ALBUTEROL 3 ML NEB INHALATION PRN (14:16)
[2021-10-14] MEDS ORDERED: HEPARIN SODIUM 1,000 UN/ML (10ML VL) IV ONE (14:16)
[2021-10-14] MEDS ORDERED: HEPARIN SODIUM 1,000 UN/ML (10ML VL) IV PRN (14:16)
[2021-10-14] MEDS ORDERED: HEPARIN SOD,PORK IN 0.45% NACL 25,000 UNIT in 0.45% NACL 1 250ML.BAG IV SCH (14:30)
[2021-10-14] MEDS: HYDROcodone/APAP 10-325MG 1 EACH TAB PO PRN ×2 (14:41→21:54)
[2021-10-14] MEDS: SODIUM CHLORIDE 0.9% 1,000 ML IV SCH (16:14)
[2021-10-14] MEDS: methylPREDNISolone SOD SUCCI 125 MG/2 ML VIAL IV SCH ×2 (16:21→23:25)
[2021-10-14] MEDS: IPRATROPIUM-ALBUTEROL 3 ML NEB INHALATION SCH ×2 (16:45→20:33)
--- NOTE | 2021-10-14 17:00 | P.CNPUL ---
History of Present Illness Consult date: 10/14/21 Reason for consult: dyspnea, hypoxemia History of present illness: This is a morbidly obese 65-year-old female patient with a body mass index of 54. The patient was admitted earlier for shortness of breath and the patient was discharged home on 10/13/2021 to be readmitted within 24 hours following her discharge because of worsening shortness of breath and acute hypoxemic respiratory failure. I had the chance to evaluate this patient another day of her discharge. At that time, the patient reported improvement in her shortness of breath. I came to find other the patient has underlying lung cancer under the care of Dr. Maria and the patient has received a combination of chemoradiation therapy in the past and she also has a remote history of DVT and pulmonary embolism noted on anticoagulation and she was receiving Lovenox therapeutic dose during her last hospital stay. The patient had a negative, COVID 19 testing in a negative influenza testing. The patient during her hospital stay and was treated with IV Rocephin. She was given IV Solu Medrol switched to prednisone burst taper. She was given Lasix and she was switched to oral Lasix 20 mg by mouth twice a day at time of discharge. The chest x-ray was showing significant opacification of the left lung and ultrasound the chest showed minimal amount of pleural fluid that was not amenable for thoracentesis. Echo of the heart showed a normal ejection fraction of 55-60% and the patient was found to have mild to moderate mitral regurgitation. Her pro-calcitonin level during her last admission was at 4.09. The patient came into the emergency department having difficulties breathing. She was hypoxic and on 6 L of O2 her pulse ox was 83%. She was placed on high flow oxygen and her saturation gradually improved. Because of increased work of breathing, subsequent was switched to a BiPAP. She was in A. fib RVR and she converses. The chest x-ray showed bilateral pulmonary infiltrates and following that the CAT scan of the chest was done that showed no evidence of any pulmonary embolism. There is a left upper lobe mass and there is also bilateral airspace disease/consolidation and the consolidation because much more dense and there is breath diseases dense in the left upper lobe which could be a underlying malignancy. At the same time, there was suspected hilar adenopathy more so on the right. The tracheobronchial tree was patent. There was some indeterminate pulmonary nodules consistent with metastatic disease and there was some underlying splenomegaly. The patient's white cell count remains elevated at 16.2 with a hemoglobin of 10.8, platelet count was 115 during this current admission, the BM was at 56 with a creatinine of 1.47 and the sodium level of 139, proBNP level was 3850 and the troponin level was at 0.141, normal LFTs, calcium level was 8.0, lactic acid level was at 2.8. The patient was started again on DuoNeb nebulized treatments around the clock, IV Solu-Medrol, and she was given Levaquin. In terms of lung cancer, the patient was diagnosed having a left lung mass measuring CT chest 08/12/17 revealed 1.5x1.7cm left hilar lesion, on 08/21/2017 PET showed enlarging left lung nodule (compared to PET scan in 2014) with inter mediate uptake. Repeat CT chest 11/17/18 revealed revealed 1.8x2.6cm mass in left which increased in size compared to prior CT scan. Brain MRI 11/17/18, done for dizzyness, was negative for metastatic disease. 11/23/18 she had a bronchoscopy, transbronchial biopsy of left lower lobe, atypical cells s uggestive of low grade pulmonary adenocarcinoma. Repeat CT 12/10/18 revealed 2.9cm LLL mass. She was evaluated by Throracic surgeon and was felt not to be a surgical candiate due to her co-morbidities and ended up having SBRT. She continued to follow up with Dr. Swann after radiation. PET 05/10 revealed suspicious uptake and increasing size of left hilar node and new small right lung nodules. She was referred back to Oncology 08/20/20. Repeat PET 09/03/20 revealed increasing size of previously irradiated area, SUV remained stable at 9, no additional suspicious finding. Bronchoscopy, biopsy was suspicious for atypical cells. It was decided by Rad/Onc to wait and repeat PET. 12/10/20 repe at PET revealed suspicious SUV in left hilar region with more solid component, representing local recurrence. A left breast lesion was evaluated by Dr. Swann with mammograms and U/S which came back negative. 01/06/21 she started concurrent weekly taxol/carboplatin with radiation completed on 02/17/21. 04/29/21 repeat PET scan revealed stable findings. It was decided not to proceed with immunotherapy due to connective tissue disease. She has Sjogrens disease, on hydroxychloroquine. She is lupus anticoagulant positive, was on warfarin, now on therapeutic dose of lovenox for the same. 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 Quick. Review of Systems REVIEW OF SYSTEMS: CONSTITUTIONAL: Positive for fever, chills. Denies any recent significant weight loss or weight gain. EYES: Denies change in vision. EARS, NOSE, MOUTH, THROAT: Denies headaches, denies sore throat. CARDIOVASCULAR: Denies chest pain, palpitations or syncopal episodes. RESPIRATORY: Positive for shortness of breath, cough, congestion no hemoptysis. GASTROINTESTINAL: Denies change in appetite, denies abdominal pain GENITOURINARY: Denies hematuria, denies infections. MUSKULOSKELETAL: Denies pain, denies swelling. INTEGUMENTARY: Denies rash, denies eczema. NEUROLOGICAL: Denies recent memory loss, no recent seizure activity. PSYCHIATRIC: Denies anxiety, denies depression. HEMATOLOGIC/LYMPHATIC: Denies anemia, denies enlarged lymph nodes. Past Medical History Past Medical History: Blood Disorder, Cancer, COPD, CVA/TIA, Deep Vein Thrombosis (DVT), GERD/Reflux, Pneumonia, Pulmonary Embolus (PE), Seizure Disorder, Sleep Apnea/CPAP/BIPAP, Thyroid Disorder Additional Past Medical History / Comment(s): L lung cancer with radiation/chemo and pt completed 01/2021, TIA-no residual effects, blood clot left leg and PE left lung, BLANCA with Cpap, last seizure 6-7 years ago, bronchitis, protein S and C deficiency, bilateral ankle/pedal edema, past hx falls, DDD, chronic back and bilateral foot pain, weakness in rt legs thought d/t pinched nerve in back, vertigo. History of Any Multi-Drug Resistant Organisms: None Reported Past Surgical History: Tubal Ligation, Uterine Ablation Additional Past Surgical History / Comment(s): D&C, bronchoscopy with L lung b iopsy x 2 Past Anesthesia/Blood Transfusion Reactions: No Reported Reaction Past Psychological History: Depression Smoking Status: Current every day smoker - Past Family History Mother Family Medical History: CVA/TIA Additional Family Medical History / Comment(s): Mother of a CVA at the age of 71 yrs. Brother(s) Family Medical History: No Reported History Additional Family Medical History / Comment(s): Patient has no children. Father Additional Family Medical History / Comment(s): Father was an alcoholic and drug addict. Medications and Allergies Home Medications Medication Instructions Recorded Confirmed Type Citalopram Hydrobromide [CeleXA] 20 mg PO W/BRKFST 11/16/18 10/14/21 History HYDROcodone/APAP 10-325MG [[place] 1 tab PO TID PRN 11/16/18 10/14/21 History 10-325] Pantoprazole Sodium 20 mg PO HS 11/16/18 10/14/21 History Tiotropium 18 Mcg/Puff [Spiriva] 1 cap INHALATION RT-HS 11/16/18 10/14/21 History Albuterol Sulfate [Ventolin HFA] 1 - 2 puff INHALATION RT-Q6H PRN 11/14/20 10/14/21 History Levothyroxine Sodium [Synthroid] 25 mcg PO AC-BRKFST 11/14/20 10/14/21 History Albuterol Nebulized [Ventolin 2.5 mg INHALATION RT-TID PRN 01/02/21 10/14/21 History Nebulized] Atorvastatin [Lipitor] 40 mg PO W/BRKFST 01/02/21 10/14/21 History Aspirin 325 mg PO HS 10/06/21 10/14/21 History Baclofen [Lioresal] 20 mg PO BID 10/06/21 10/14/21 History Budesonide/Formoterol Fumarate 2 puff INHALATION RT-DAILY 10/06/21 10/14/21 History [Symbicort 160-4.5 Mcg Inhaler] Enoxaparin [Lovenox] 200 mg SQ DAILY 10/06/21 10/14/21 History Ergocalciferol [Vitamin D2 (1250 1,250 mcg PO TU 10/06/21 10/14/21 History Mcg = 13520 Iu)] Gabapentin 300 mg PO HS 10/06/21 10/14/21 History Montelukast [Singulair] 10 mg PO DAILY@1200 10/06/21 10/14/21 History Vitamin B Complex 1 cap PO W/BRKFST 10/06/21 10/14/21 History levETIRAcetam [Keppra] 750 mg PO BID 10/06/21 10/14/21 History Diltiazem Cd [Cardizem CD] 180 mg PO DAILY #30 10/13/21 10/14/21 Rx Furosemide [Lasix] 20 mg PO DAILY 30 Days tab 10/13/21 10/14/21 Rx predniSONE [Deltasone] 40 mg PO DAILY 3 Days tab 10/13/21 10/14/21 Rx Allergies Allergy/AdvReac Type Severity Reaction Status Date / Time doxycycline Allergy Rash/Hives Verified 10/14/21 10:33 Penicillins Allergy Rash/Hives, Verified 10/14/21 10:33 "hard to heal" Sulfa (Sulfonamide Allergy Rash/Hives,"hard Verified 10/14/21 10:33 Antibiotics) to heal" wool Allergy Rash/Hives, Verified 10/14/21 10:33 itching ivory soap Allergy Rash/Hives, Uncoded 10/14/21 10:33 itching Physical Exam Vitals: Vital Signs Temp Pulse Resp BP Pulse Ox 10/14/21 14:43 102 H 31 H 122/75 92 L 10/14/21 13:13 104 H 32 H 129/67 96 10/14/21 12:31 96 10/14/21 12:21 93 10/14/21 11:56 106 H 19 92/40 91 L 10/14/21 09:36 97.6 F 100 28 H 116/65 91 L Intake and Output 10/14/21 10/14/21 10/14/21 06:59 14:59 22:59 Other: Weight 137.9 kg GENERAL EXAM: Alert , still having some shortness of breath, particularly on a BiPAP at a pressure of 14/5 cm of water. Less short of breath while on the BiPAP. Able to tolerate a full face BiPAP mask without any major difficulties. With slightly apprehensive and anxious. HEAD: Normocephalic. EYES: Normal reaction of pupils, equal size. NOSE: Clear with pink turbinates. THROAT: No erythema or exudates. NECK: No masses, no JVD. CHEST: No chest wall deformity. LUNGS: Equal air entry with few scattered rhonchi more so on the left. CVS: S1 and S2 normal with no audible murmur, regular rhythm. ABDOMEN: No hepatosplenomegaly, normal bowel sounds, no guarding or rigidity. SPINE: No scoliosis or deformity SKIN: No rashes CENTRAL NERVOUS SYSTEM: No focal deficits, tone is normal in all 4 extremities. EXTREMITIES: There is increased bilateral peripheral edema. No clubbing, no cyanosis. Peripheral pulses are intact. Results - Laboratory Findings CBC and BMP: 10/14/21 09:55 10/14/21 09:55 PT/INR, D-dimer PT 12.1 sec (9.0-12.0) H 10/14/21 09:55 INR 1.1 (<1.2) 10/14/21 09:55 Abnormal lab findings: Abnormal Labs 10/14/21 10/14/21 10/14/21 09:55 09:55 09:55 WBC 16.2 H RBC 3.78 L Hgb 10.8 L Hct 33.0 L Plt Count 115 L Neutrophils # (Manual) 14.74 H PT 12.1 H APTT 46.7 H BUN 56 H Creatinine 1.47 H Glucose 122 H Calcium 8.0 L Troponin I Total Protein 5.9 L Albumin 2.6 L 10/14/21 09:55 WBC RBC Hgb Hct Plt Count Neutrophils # (Manual) PT APTT BUN Creatinine Glucose Calcium Troponin I 0.141 H* Total Protein Albumin - Diagnostic Findings Chest x-ray: image reviewed CT scan - chest: image reviewed Assessment and Plan Plan: Acute on chronic hypoxemic respiratory failure with development of diffuse breath and pulmonary infiltrates/with an area of masslike consolidation in the left upper lobe which could be an area of malignancy as the patient is known to have non-small cell lung cancer/adenocarcinoma of the left lung. The patient is also receiving radiation therapy to that area in the past. Noted the patient was recently in the hospital treated for pneumonia and discharged home to present back within 24 hours with worsening shortness of breath and hypoxemia. CAT scan of the chest was done and reveals a masslike consolidation of left upper lobe in addition to diffuse breath and airspace disease which may be infectious versus malignant in nature with progression of her underlying lung cancer. Would like like to appreciate and compared old CAT scans for comparison. Paroxysmal atrial fibrillation with RVR at time of admission COPD Chronic and ongoing tobacco dependence. History of lung cancer, likely a stage IV adenocarcinoma, status post chemoradiation, completed, February 2021. The patient was diagnosed with lung cancer 2017. Please refer to the details as mentioned above regarding the patient's history of non-small cell lung cancer which is probably an adenocarcinoma. History of protein C&S deficiency. History of DVT/pulmonary embolism. Hyperlipidemia. Hypothyroidism. History of seizure disorder. History of depression. Chronic kidney disease Troponin leak, nonspecific, Plan Admit this patient to the ICU Continue BiPAP for respiratory support Continue bronchodilators Continue IV Solu-Medrol Continue BiPAP for respiratory support Recheck pro-calcitonin level Put the patient on Lasix 40 mg IV every 12 hours The patient will be placed on a combination of Zosyn and Levaquin Obtain all the CAT scan of the chest for comparison. Note that the patient undergone a previous workup at [facility] Anticoagulation with either IV heparin or subcu Lovenox Monitor troponin levels We'll continue to follow make further recommendations based on her progress.
[2021-10-14] MEDS: FUROSEMIDE 10 MG/ML 4 ML VIAL IV SCH (18:03)
[2021-10-14 18:13] LABS: Glucose,Whole Blood 149 mg/dL (75-99)
[2021-10-14] MEDS: INSULIN ASPART (NovoLOG) 100 UNIT/ML VIAL SQ SCH ×2 (18:14→21:44)
[2021-10-14 19:58] LABS: Glucose,Whole Blood 156 mg/dL (75-99)
[2021-10-14] MEDS ORDERED: NON FORMULARY DRUG (Tiotropium 18 Mcg/Puff 1 PUFF Inhaler) INHALATION SCH (20:00)
[2021-10-14] MEDS: BACLOFEN 10 MG TAB PO SCH (21:44)
[2021-10-14] MEDS: PANTOPRAZOLE SODIUM 40 MG GRANULE PKT PO SCH (21:44)
[2021-10-14] MEDS: CEFEPIME 2 GM in SODIUM CHLORIDE 0.9% 100 ML IVPB SCH (21:44)
[2021-10-14] MEDS: GABAPENTIN 300 MG CAP PO SCH (21:44)
[2021-10-14] MEDS: ASPIRIN 325 MG TAB PO SCH (21:44)
[2021-10-15] MEDS: FUROSEMIDE 10 MG/ML 4 ML VIAL IV SCH ×3 (01:55→18:37)
[2021-10-15] MEDS: SODIUM CHLORIDE 0.9% 1,000 ML IV SCH (04:13)
[2021-10-15 06:06] LABS: Potassium 4.3 mmol/L (3.5-5.1)
[2021-10-15] MEDS: ATORVASTATIN 40 MG TAB PO SCH (06:27)
[2021-10-15] MEDS: CITALOPRAM HYDROBROMIDE 20 MG TAB PO SCH (06:27)
[2021-10-15] MEDS: LEVOTHYROXINE 25 MCG TAB PO SCH (06:27)
[2021-10-15] MEDS: INSULIN ASPART (NovoLOG) 100 UNIT/ML VIAL SQ SCH ×4 (06:28→21:32)
[2021-10-15] MEDS: FOLIC ACID-VIT B COMPLEX-VIT C 1 CAP PO SCH (06:28)
--- NOTE | 2021-10-15 06:47 | XR ---
EXAMINATION TYPE: XR chest 1V portable DATE OF EXAM: 10/15/2021 CLINICAL HISTORY: Difficulty breathing progress study. TECHNIQUE: Single AP portable semiupright view of the chest is obtained. COMPARISON: Chest x-ray and CTA chest from one day earlier and older studies. FINDINGS: Right diffuse reticular increased opacity redemonstrated. There is more dense masslike con solidation left mid lung redemonstrated. Left basilar opacity is seen. Cardiac silhouette size stable and upper limits of normal. Osseous structures are intact. IMPRESSION: Diffuse right lung infiltrates and left basilar infiltrates with left mid lung mass or ma sslike consolidation all redemonstrated. No significant change from one day earlier.
[2021-10-15 06:58] LABS: Basophils # (A) 0.1 k/uL (0-0.2); Basophils % (A) 0 %; Eosinophils % (A) 0 %; HCT 30.1 % (34.0-46.0); HGB 9.5 gm/dL (11.4-16.0); Lymphocytes # (A) 0.5 k/uL (1.0-4.8); Lymphocytes % (A) 4 %; MCH 28.2 pg (25.0-35.0); MCHC 31.4 g/dL (31.0-37.0); MCV 89.8 fL (80.0-100.0); Mean Platelet Volume 9.3; Monocytes # (A) 0.3 k/uL (0-1.0); Monocytes % (A) 2 %; Neutrophils # (A) 13.6 k/uL (1.3-7.7); Neutrophils % (A) 94 %; RBC 3.35 m/uL (3.80-5.40); RDW 14.8 % (11.5-15.5); WBC 14.5 k/uL (3.8-10.6)
[2021-10-15 07:18] LABS: Platelet Count 94 k/uL (150-450)
--- NOTE | 2021-10-15 07:43 | P.HPIM ---
History of Present Illness H&P Date: 10/14/21 HISTORY OF PRESENT ILLNESS 56 year-old morbidly obese female one of Dr. 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 fib, patient also known to have non-small cell see of the lung has been on chemotherapy postradiation, she had DVT and PE as well history of obstructive sleep apnea and recurrent TIA who was hospitalized in October 06 till October 14 for severe dyspnea and shortness of breath and respiratory failure was seen cardiology and pulmonary along with oncology treated for sepsis with left-sided pneumonia along with acute hypoxic respiratory failure was initially on BiPAP and transferred to Ventimask and then nasal cannula. Patient was on steroids along with antibiotics and updraft treatment regular basis all along until the day of discharge. Patient presented to the emergency department by EMS with worsening dyspnea and respiratory failure found to have severe hypoxia require BiPAP was started on IV steroids along with updraft treatment seen pulmonary quickly in the emergency department. With a high risk of pulmonary embolism patient had A. fib patient was started on heparin drip her chest x-ray showed bilateral pulmonary infiltrate CAT scan showed no evidence of any pulmonary embolism at the time but showed left upper lobe mass is also bilaterallydisease in consultation consistent with pneumonia beside her underlying malignancy and probably obstructive pneumonitis. Patient also had some hilar adenopathy of the right side the tracheobronchial tree was patent white blood cell was 16,000 hemoglobin 10.8 creatinine was 1.47 BNP was 3815 with troponin mildly elevated at 0.141, also lactic acid was 2.8 at the time. Patient was started on DuoNeb, Solu- Medrol and giving Levaquin. Patient was hospitalized with acute hypoxic respiratory failure with significant failure and less than 24 hours before discharge. Patient be admitted will be seen cardiology as well because of elevated troponin and A. fib. REVIEW OF SYSTEMS Constitutional: Mildly overweight, on BiPAP look in mild respiratory distress and had been severely dyspneic. EENT: No headache. No blurred vision or double vision, no loss of vision. No loss of Hearing, no ringing in the ears, no dizziness. No nasal drainage or congestion. No epistaxis. No sore throat. Lungs: Significant shortness of breath with extreme wheezes. Cardiovascular: No chest pain, no lower extremity edema. No palpitations. No paroxysmal nocturnal dyspnea. No orthopnea. No lightheadedness or dizziness. No syncopal episodes. Abdominal: No abdominal pain. No nausea, vomiting. No diarrhea. No constipation. No bloody or tarry stools.. No loss of appetite. Genitourinary: No dysuria, increased frequency, urgency. No urinary retention. Musculoskeletal: Generalized myalgia and arthralgia with abnormal balance and gait slight weakness in the right side. Integumentary: No wounds, no lesions. No rash or pruritus. No unusual bruising. No change in hair or nails. Neurologic: Positive weakness of the right side along with speech problem and aphasia without dysphagia currently Psychiatric: No depression. No anxiety. No mood swings. Endocrine: No abnormal blood sugars. No weight change. No excessive sweating or thirst. No cold intolerance. SOCIAL HISTORY She smokes one and half pack a day for the last 40 years willing to try nicotine patch try to quit, patient does not drink alcohol, she has sleep apnea he uses CPAP she is on the with her and has been retired so far for any years. FAMILY HISTORY Her father at age 56 from [place], mother her 70 from the cardiac infarction, patient had 2 brothers and half brother one of them from drug overdose patient does not have any children. PHYSICAL EXAMINATION Gen: This is a morbidly obese laying in bed has BiPAP on looks in mild respiratory distress surgeon quite but kidney. HEENT: Head is atraumatic, normocephalic. Pupils equal, round. Sclerae is anicteric. NECK: Supple. No JVD. No lymphadenopathy. No thyromegaly. LUNGS: Decreased breath some today with significant rhonchi mild crackles in the bases positive mild inspiratory expiratory wheezes. HEART: Regular rate and rhythm. Mild tachycardia has history ABDOMEN: Soft. Bowel sounds are present. No masses. No tenderness. EXTREMITIES: Trace edema decreased pulse bilaterally mild osteoarthritis both knees NEUROLOGICAL: Patient is awake, alert and oriented x3. Cranial nerves 2 through 12 are grossly intact. ASSESSMENT AND PLAN 1 acute on chronic hypoxic respiratory failure with diffuse infiltrate with left upper lobe pneumonia with possible obstructive pneumonitis with the large mass in the left upper lobe. Patient be covered for gram-negative pneumonia as well the meanwhile continue BiPAP, memory consultation, continue Solu-Medrol along with DuoNeb patient will be admitted to the ICU at this point. 2 COPD exacerbation: Most likely caused by the obstructive pneumonia along with a severe hypoxia at this point, patient will benefit from DuoNeb along with Pulmicort continue steroid IV. 3 consolidation and obstructive pneumonia: Most likely caused by the compression of her left upper lobe lung mass, patient be covered with gram-negative was started on Levaquin might benefit from adding Zosyn at this point specially with her elevated white let cell along with elevated lactic acid. 4 early sepsis: Most likely caused by pneumonia, blood culture was done patient be on IV antibiotics for now. 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 6 Atrial fibrillationwith rapid ventricular response, resumeanticoagulation patient was heparinize at this point will continue diltiazem CD 180 mg daily patient is seeing cardiology. 7 elevated troponin with possible non-ST NC, this could be hypoperfusion minimally elevated troponin repeat troponin in the next 8-12 hours. 8 coagulopathy with DVT and pulmonary embolism: Remain on anticoagulation which patient doing Lovenox 200 mg subcutaneous daily. 9 acute kidney injury with chronic kidney disease, continue gentle hydration repeat CMP and next 24 hours. 10 history of seizure: Has been on Keppra 750 mg twice a day resume medication. 11 hypothyroidism: Continue levothyroxine 25 g daily. 12 hyperlipidemia: Remain on atorvastatin 40 mg a day we'll resume medication. 13 chronic neuropathy: Most likely peripheral neuropathy might be chemotherapy related, remain on gabapentin 300 mg daily at bedtime. 14 severe GERD/GI prophylaxis: Patient remain on pantoprazole 20 mg daily. 15 chronic pain syndrome: Remain on hydrocodone 10/325 mg 3 times a day. 16 DVT prophylaxis: Patient currently being treated with active anticoagulation with Lovenox subcutaneous. 17. COVID-19 testing was negative. CODE STATUS: Full code. Admit patient to the inpatient service for more than 2 days stay. Past Medical History Past Medical History: Blood Disorder, Cancer, COPD, CVA/TIA, Deep Vein Throm bosis (DVT), GERD/Reflux, Pneumonia, Pulmonary Embolus (PE), Seizure Disorder, Sleep Apnea/CPAP/BIPAP, Thyroid Disorder Additional Past Medical History / Comment(s): L lung cancer with radiation/chemo and pt completed 01/2021, TIA-no residual effects, blood clot left leg and PE left lung, BLANCA with Cpap, last seizure 6-7 years ago, bronchitis, protein S and C deficiency, bilateral ankle/pedal edema, past hx falls, DDD, chronic back and bilateral foot pain, weakness in rt legs thought d/t pinched nerve in back, vertigo. History of Any Multi-Drug Resistant Organisms: None Reported Past Surgical History: Tubal Ligation, Uterine Ablation Additional Past Surgical History / Comment(s): D&C, bronchoscopy with L lung biopsy x 2 Past Anesthesia/Blood Transfusion Reactions: No Reported Reaction Past Psychological History: Depression Smoking Status: Current every day smoker - Past Family History Mother Family Medical History: CVA/TIA Additional Family Medical History / Comment(s): Mother of a CVA at the age of 71 yrs. Brother(s) Family Medical History: No Reported History Additional Family Medical History / Comment(s): Patient has no children. Father Additional Family Medical History / Comment(s): Father was an alcoholic and drug addict. Medications and Allergies Home Medications Medication Instructions Recorded Confirmed Type Citalopram Hydrobromide [CeleXA] 20 mg PO W/BRKFST 11/16/18 10/14/21 History HYDROcodone/APAP 10-325MG [[place] 1 tab PO TID PRN 11/16/18 10/14/21 History 10-325] Pantoprazole Sodium 20 mg PO HS 11/16/18 10/14/21 History Tiotropium 18 Mcg/Puff [Spiriva] 1 cap INHALATION RT-HS 11/16/18 10/14/21 History Albuterol Sulfate [Ventolin HFA] 1 - 2 puff INHALATION RT-Q6H PRN 11/14/20 10/14/21 History Levothyroxine Sodium [Synthroid] 25 mcg PO AC-BRKFST 11/14/20 10/14/21 History Albuterol Nebulized [Ventolin 2.5 mg INHALATION RT-TID PRN 01/02/21 10/14/21 History Nebulized] Atorvastatin [Lipitor] 40 mg PO W/BRKFST 01/02/21 10/14/21 History Aspirin 325 mg PO HS 10/06/21 10/14/21 History Baclofen [Lioresal] 20 mg PO BID 10/06/21 10/14/21 History Budesonide/Formoterol Fumarate 2 puff INHALATION RT-DAILY 10/06/21 10/14/21 History [Symbicort 160-4.5 Mcg Inhaler] Enoxaparin [Lovenox] 200 mg SQ DAILY 10/06/21 10/14/21 History Ergocalciferol [Vitamin D2 (1250 1,250 mcg PO TU 10/06/21 10/14/21 History Mcg = 75505 Iu)] Gabapentin 300 mg PO HS 10/06/21 10/14/21 History Montelukast [Singulair] 10 mg PO DAILY@1200 10/06/21 10/14/21 History Vitamin B Complex 1 cap PO W/BRKFST 10/06/21 10/14/21 History levETIRAcetam [Keppra] 750 mg PO BID 10/06/21 10/14/21 History Diltiazem Cd [Cardizem CD] 180 mg PO DAILY #30 10/13/21 10/14/21 Rx Furosemide [Lasix] 20 mg PO DAILY 30 Days tab 10/13/21 10/14/21 Rx predniSONE [Deltasone] 40 mg PO DAILY 3 Days tab 10/13/21 10/14/21 Rx Allergies Allergy/AdvReac Type Severity Reaction Status Date / Time doxycycline Allergy Rash/Hives Verified 10/14/21 10:33 Penicillins Allergy Rash/Hives, Verified 10/14/21 10:33 "hard to heal" Sulfa (Sulfonamide Allergy Rash/Hives,"hard Verified 10/14/21 10:33 Antibiotics) to heal" wool Allergy Rash/Hives, Verified 10/14/21 10:33 itching ivory soap Allergy Rash/Hives, Uncoded 10/14/21 10:33 itching Physical Exam Vitals: Vital Signs Temp Pulse Resp BP Pulse Ox 10/14/21 16:58 90 10/14/21 16:48 90 10/14/21 16:11 96 28 H 122/76 91 L 10/14/21 14:43 102 H 31 H 122/75 92 L 10/14/21 13:13 104 H 32 H 129/67 96 10/14/21 12:31 96 10/14/21 12:21 93 10/14/21 11:56 106 H 19 92/40 91 L 10/14/21 09:36 97.6 F 100 28 H 116/65 91 L Intake and Output 10/14/21 10/14/21 10/14/21 06:59 14:59 22:59 Other: Weight 137.9 kg Results CBC & Chem 7: 10/15/21 05:35 10/15/21 05:35 Labs: Abnormal Lab Results - Last 24 Hours (Table) 10/14/21 10/14/21 10/14/21 Range/Units 09:55 09:55 09:55 WBC 16.2 H (3.8-10.6) k/uL RBC 3.78 L (3.80-5.40) m/uL Hgb 10.8 L (11.4-16.0) gm/dL Hct 33.0 L (34.0-46.0) % Plt Count 115 L (150-450) k/uL Neutrophils # (Manual) 14.74 H (1.3-7.7) k/uL PT 12.1 H (9.0-12.0) sec APTT 46.7 H (22.0-30.0) sec BUN 56 H (7-17) mg/dL Creatinine 1.47 H (0.52-1.04) mg/dL Glucose 122 H (74-99) mg/dL Calcium 8.0 L (8.4-10.2) mg/dL Troponin I (0.000-0.034) ng/mL Total Protein 5.9 L (6.3-8.2) g/dL Albumin 2.6 L (3.5-5.0) g/dL 10/14/21 10/14/21 Range/Units 09:55 15:05 WBC (3.8-10.6) k/uL RBC (3.80-5.40) m/uL Hgb (11.4-16.0) gm/dL Hct (34.0-46.0) % Plt Count (150-450) k/uL Neutrophils # (Manual) (1.3-7.7) k/uL PT (9.0-12.0) sec APTT (22.0-30.0) sec BUN (7-17) mg/dL Creatinine (0.52-1.04) mg/dL Glucose (74-99) mg/dL Calcium (8.4-10.2) mg/dL Troponin I 0.141 H* 0.115 H* (0.000-0.034) ng/mL Total Protein (6.3-8.2) g/dL Albumin (3.5-5.0) g/dL
[2021-10-15] MEDS: IPRATROPIUM-ALBUTEROL 3 ML NEB INHALATION SCH ×4 (08:11→19:31)
[2021-10-15] MEDS: methylPREDNISolone SOD SUCCI 125 MG/2 ML VIAL IV SCH ×2 (08:26→16:23)
[2021-10-15] MEDS: CEFEPIME 2 GM in SODIUM CHLORIDE 0.9% 100 ML IVPB SCH ×2 (08:32→21:32)
[2021-10-15] MEDS: BACLOFEN 10 MG TAB PO SCH ×2 (08:33→21:31)
[2021-10-15] MEDS ORDERED: predniSONE 20 MG TAB PO SCH (09:00)
[2021-10-15] MEDS ORDERED: ENOXAPARIN 100 MG/ML SYRINGE SQ SCH (09:00)
[2021-10-15] MEDS ORDERED: FUROSEMIDE 20 MG TAB PO SCH (09:00)
[2021-10-15] MEDS: DILTIAZEM CD 180 MG CAP.ER.24H PO SCH (09:01)
[2021-10-15] MEDS: NICOTINE 14MG/24HR PATCH TRANSDERM SCH (09:29)
[2021-10-15] MEDS: SYMBICORT 160-4.5 MCG INHALER INHALATION SCH (11:37)
--- NOTE | 2021-10-15 11:43 | P.CRDCN ---
History of Present Illness History of present illness: 56-year-old lady with history of carcinoma of the lung presented to hospital with hypoxia shortness of breath and respiratory distress. Vital she was in the emergency room she apparently had episodes of atrial fibrillation that were transient self-limited. I don't have an EKG and I do not see any rhythm strips. She has been in normal sinus rhythm since she got admitted. She is in normal sinus rhythm this morning free of chest pain or shortness of breath has improved. She also had mild elevation in troponin. There is no prior history of coronary artery disease congestive heart failure paroxysmal atrial fibrillation patient had been diagnosed with lung cancer in 2018 and has received radiation therapy of troponin is mildly elevated at 0.08. This is probably related to hypoxia and supply demand mismatch. I will obtain a 2-D echo to assess LV function and wall motion. Heparin has already been stopped Constitutional: Denies chills. Denies fever. Eyes: Denies blurred vision. Denies pain. Ears, nose, mouth and throat: Denies headache. Denies sore throat. Cardiovascular: Denies chest pain. Respiratory: Denies cough. Significant for shortness of breath Gastrointestinal: Denies abdominal pain. Denies diarrhea. Denies nausea. Denies vomiting. Musculoskeletal: Denies myalgias. Integumentary: Denies pruritus. Denies rash. Neurological: Denies numbness. Denies weakness. Psychiatric: Denies anxiety. Denies depression. Endocrine: Denies fatigue. Denies weight change. Genitourinary: Denies burning, hematuria, frequency of urination. Hematological: No anemia or excess bleeding. General: The patient is awake and alert, in no distress, and does not appear acutely ill. Skin: Skin is warm and dry and no rashes or lesions are noted. Eye: Pupils are equal, round and reactive to light, extra-ocular movements are intact; there is normal conjunctiva bilaterally. Ears, nose, mouth and throat: There are moist mucous membranes and no oral lesions. Neck: The neck is supple, there is no tenderness or JVD. Cardiovascular: There is a regular rate and rhythm. No murmur, rub or gallop is appreciated. Respiratory: Lungs are clear to auscultation, respirations are non-labored, breath sounds are equal. Diminished air entry at the left base Gastrointestinal: Soft, non-distended, non-tender abdomen without masses or organomegaly noted. There is no rebound or guarding present. Bowel sounds are unremarkable. Back: There is no tenderness to palpation in the midline. There is no obvious deformity. Musculoskeletal: Normal ROM, no tenderness, There is no pedal edema. There is no calf tenderness or swelling. Extremities: No edema. Vascular: Femoral pulse is normal. Posterior tibial pulses are normal .Dorsalis pedis is palpable. Neurological: CN II-XII intact. There are no obvious motor or sensory deficits. Speech is normal. Psychiatric: Cooperative, appropriate mood & affect, normal judgment. Labs: Left shift has smoked 4.3 creatinine is 1.6 troponin is mildly elevated hemoglobin is 9.5 Assessment and plan: Elevated troponin secondary to hypoxia and supply demand mismatch I will check an echocardiogram Questionable atrial fibrillation we will watch her on telemetric Past Medical History Past Medical History: Blood Disorder, Cancer, COPD, CVA/TIA, Deep Vein Thrombosis (DVT), GERD/Reflux, Pneumonia, Pulmonary Embolus (PE), Seizure Disorder, Sleep Apnea/CPAP/BIPAP, Thyroid Disorder Additional Past Medical History / Comment(s): L lung cancer with radiation/chemo and pt completed 01/2021, TIA-no residual effects, blood clot left leg and PE left lung, BLANCA with Cpap, last seizure 6-7 years ago, bronchitis, protein S and C deficiency, bilateral ankle/pedal edema, past hx falls, DDD, chronic back and bilateral foot pain, weakness in rt legs thought d/t pinched nerve in back, vertigo. History of Any Multi-Drug Resistant Organisms: None Reported Past Surgical History: Tubal Ligation, Uterine Ablation Additional Past Surgical History / Comment(s): D&C, bronchoscopy with L lung biopsy x 2 Past Anesthesia/Blood Transfusion Reactions: No Reported Reaction Past Psychological History: Depression Smoking Status: Current every day smoker - Past Family History Mother Family Medical History: CVA/TIA Additional Family Medical History / Comment(s): Mother of a CVA at the age of 71 yrs. Brother(s) Family Medical History: No Reported History Additional Family Medical History / Comment(s): Patient has no children. Father Additional Family Medical History / Comment(s): Father was an alcoholic and drug addict. Medications and Allergies Home Medications Medication Instructions Recorded Confirmed Type Citalopram Hydrobromide [CeleXA] 20 mg PO W/BRKFST 11/16/18 10/14/21 History HYDROcodone/APAP 10-325MG [[place] 1 tab PO TID PRN 11/16/18 10/14/21 History 10-325] Pantoprazole Sodium 20 mg PO HS 11/16/18 10/14/21 History Tiotropium 18 Mcg/Puff [Spiriva] 1 cap INHALATION RT-HS 11/16/18 10/14/21 History Albuterol Sulfate [Ventolin HFA] 1 - 2 puff INHALATION RT-Q6H PRN 11/14/20 10/14/21 History Levothyroxine Sodium [Synthroid] 25 mcg PO AC-BRKFST 11/14/20 10/14/21 History Albuterol Nebulized [Ventolin 2.5 mg INHALATION RT-TID PRN 01/02/21 10/14/21 History Nebulized] Atorvastatin [Lipitor] 40 mg PO W/BRKFST 01/02/21 10/14/21 History Aspirin 325 mg PO HS 10/06/21 10/14/21 History Baclofen [Lioresal] 20 mg PO BID 10/06/21 10/14/21 History Budesonide/Formoterol Fumarate 2 puff INHALATION RT-DAILY 10/06/21 10/14/21 History [Symbicort 160-4.5 Mcg Inhaler] Enoxaparin [Lovenox] 200 mg SQ DAILY 10/06/21 10/14/21 History Ergocalciferol [Vitamin D2 (1250 1,250 mcg PO TU 10/06/21 10/14/21 History Mcg = 02944 Iu)] Gabapentin 300 mg PO HS 10/06/21 10/14/21 History Montelukast [Singulair] 10 mg PO DAILY@1200 10/06/21 10/14/21 History Vitamin B Complex 1 cap PO W/BRKFST 10/06/21 10/14/21 History levETIRAcetam [Keppra] 750 mg PO BID 10/06/21 10/14/21 History Diltiazem Cd [Cardizem CD] 180 mg PO DAILY #30 10/13/21 10/14/21 Rx Furosemide [Lasix] 20 mg PO DAILY 30 Days tab 10/13/21 10/14/21 Rx predniSONE [Deltasone] 40 mg PO DAILY 3 Days tab 10/13/21 10/14/21 Rx Allergies Allergy/AdvReac Type Severity Reaction Status Date / Time doxycycline Allergy Rash/Hives Verified 10/14/21 10:33 Penicillins Allergy Rash/Hives, Verified 10/14/21 10:33 "hard to heal" Sulfa (Sulfonamide Allergy Rash/Hives,"hard Verified 10/14/21 10:33 Antibiotics) to heal" wool Allergy Rash/Hives, Verified 10/14/21 10:33 itching ivory soap Allergy Rash/Hives, Uncoded 10/14/21 10:33 itching Physical Exam Vitals: Vital Signs Temp Pulse Resp BP Pulse Ox 10/15/21 11:00 73 22 109/53 90 L 10/15/21 10:00 80 26 H 106/57 86 L 10/15/21 09:00 81 24 104/56 86 L 10/15/21 08:22 90 10/15/21 08:11 89 10/15/21 08:00 97.7 F 98 25 H 112/66 91 L 10/15/21 07:00 85 23 116/65 93 L 10/15/21 06:00 68 25 H 108/61 92 L 10/15/21 05:00 67 21 109/58 90 L 10/15/21 04:00 97.8 F 62 20 106/60 92 L 10/15/21 03:00 71 17 110/62 93 L 10/15/21 02:00 68 18 100/65 92 L 10/15/21 01:00 71 19 105/56 93 L 10/15/21 00:11 82 22 93 L 10/15/21 00:00 98.2 F 83 23 108/56 91 L 10/14/21 23:00 90 22 113/79 90 L 10/14/21 22:00 97.8 F 82 26 H 125/73 93 L 10/14/21 21:28 85 22 91 L 10/14/21 20:40 85 10/14/21 20:35 85 10/14/21 19:00 81 23 125/80 94 L 10/14/21 18:00 86 27 H 127/72 93 L 10/14/21 17:00 92 27 H 132/82 94 L 10/14/21 16:58 90 10/14/21 16:48 90 10/14/21 16:11 96 28 H 122/76 91 L 10/14/21 16:00 104 H 21 104/82 86 L 10/14/21 15:00 87 25 H 122/75 96 10/14/21 14:43 102 H 31 H 122/75 92 L 10/14/21 14:00 91 27 H 109/62 98 10/14/21 13:13 104 H 32 H 129/67 96 10/14/21 13:00 92 27 H 121/64 98 10/14/21 12:31 96 10/14/21 12:21 93 10/14/21 12:00 101 H 31 H 92/40 94 L 10/14/21 11:56 106 H 19 92/40 91 L Intake and Output 10/14/21 10/15/21 10/15/21 22:59 06:59 14:59 Intake Total 149.833 0 35 Output Total 2225 1600 325 Balance -2075.167 -1600 -290 Intake: IV 10 0.9NS 10 Intake, IV Titration 149.833 0 25 Amount Cefepime 2 gm In Sodium 100 25 Chloride 0.9% 100 ml @ 25 mls/hr IVPB Q12HR [facility] Rx #:[id number] Heparin Sod,Pork in 0.45% 49.833 0 NaCl 25,000 unit In 0.45 % NaCl 1 250ml.bag @ 7. 2516 UNITS/KG/HR 10 mls/ hr IV .Q24H [facility] Rx#: [id number] Output: Urine 2225 1600 325 Other: Voiding Method Indwelling Catheter Weight 141.8 kg Results 10/15/21 05:35 10/15/21 05:35 Cardiac Enzymes 10/14/21 10/14/21 Range/Units 15:05 18:24 Troponin I 0.115 H* 0.089 H* (0.000-0.034) ng/mL Coagulation 10/14/21 10/15/21 Range/Units 20:15 05:35 APTT 168.5 H* 55.4 H (22.0-30.0) sec CBC 10/15/21 Range/Units 05:35 WBC 14.5 H (3.8-10.6) k/uL RBC 3.35 L (3.80-5.40) m/uL Hgb 9.5 L (11.4-16.0) gm/dL Hct 30.1 L (34.0-46.0) % Plt Count 94 L (150-450) k/uL Comprehensive Metabolic Panel 10/15/21 Range/Units 05:35 Sodium 138 (137-145) mmol/L Potassium 4.3 (3.5-5.1) mmol/L Chloride 103 (98-107) mmol/L Carbon Dioxide 30 (22-30) mmol/L BUN 54 H (7-17) mg/dL Creatinine 1.62 H (0.52-1.04) mg/dL Glucose 159 H (74-99) mg/dL Calcium 8.0 L (8.4-10.2) mg/dL Current Medications Generic Name Dose Route Start Last Admin Trade Name Freq PRN Reason Stop Dose Admin Hydrocodone Bitart/Acetaminophen 1 each 10/14/21 14:13 10/14/21 21:54 Hydrocodone/Apap 10-325mg 1 Each Tab PO 1 each TID PRN Administration Pain Albuterol/Ipratropium 3 ml 10/14/21 16:00 10/15/21 11:37 Ipratropium-Albuterol 3 Ml Neb INHALATION 3 ml RT-QID [facility] Administration Albuterol/Ipratropium 3 ml 10/14/21 14:16 Ipratropium-Albuterol 3 Ml Neb INHALATION RT-Q2H PRN Shortness Of Breath Or Wheezing Aspirin 325 mg 10/14/21 21:00 10/14/21 21:44 Aspirin 325 Mg Tab PO 325 mg HS [facility] Administration Atorvastatin Calcium 40 mg 10/15/21 07:30 10/15/21 06:27 Atorvastatin 40 Mg Tab PO 40 mg W/BRKFST [facility] Administration Baclofen 20 mg 10/14/21 21:00 10/15/21 08:33 Baclofen 10 Mg Tab PO 20 mg BID [facility] Administration Budesonide/Formoterol Fumarate 2 puff 10/15/21 08:00 10/15/21 11:37 Symbicort 160-4.5 Mcg Inhaler INHALATION 2 puff RT-DAILY [facility] Administration Citalopram Hydrobromide 20 mg 10/15/21 07:30 10/15/21 06:27 Citalopram Hydrobromide 20 Mg Tab PO 20 mg W/BRKFST [facility] Administration Diltiazem HCl 180 mg 10/15/21 09:00 10/15/21 09:01 Diltiazem Cd 180 Mg Cap.Er.24h PO 180 mg DAILY [facility] Administration Ergocalciferol 1,250 mcg 10/14/21 14:15 10/14/21 20:45 Ergocalciferol 1,250 Mcg (50,000 Iu) Capsule PO Not Given TU [facility] Furosemide 40 mg 10/14/21 18:00 10/15/21 09:02 Furosemide 10 Mg/Ml 4 Ml Vial IV 40 mg Q8H [facility] Administration Gabapentin 300 mg 10/14/21 21:00 10/14/21 21:44 Gabapentin 300 Mg Cap PO 300 mg HS [facility] Administration Levofloxacin 750 mg/ IV 150 mls @ 100 mls/hr 10/16/21 09:00 Solution IVPB Q48H [facility] Protocol Sodium Chloride 1,000 mls @ 5 mls/hr 10/14/21 14:30 10/15/21 04:13 Saline 0.9% IV 5 mls/hr .Q24H [facility] Administration Cefepime HCl 2 gm/ Sodium 100 mls @ 25 mls/hr 10/14/21 21:00 10/15/21 08:32 Chloride IVPB 25 mls/hr Q12HR [facility] Administration Protocol Insulin Aspart 0 unit 10/14/21 17:30 10/15/21 06:28 Insulin Aspart (Novolog) 100 Unit/Ml Vial SQ 3 unit ACHS [facility] Administration Protocol Levetiracetam 750 mg 10/14/21 21:00 10/15/21 09:01 Levetiracetam 750 Mg Tab PO 750 mg BID [facility] Administration Levothyroxine Sodium 25 mcg 10/15/21 07:30 10/15/21 06:27 Levothyroxine 25 Mcg Tab PO 25 mcg AC-BRKFST [facility] Administration Methylprednisolone Sodium Succinate 60 mg 10/14/21 16:00 10/15/21 08:26 Methylprednisolone Sod Succi 125 Mg/2 Ml Vial IV 60 mg Q8HR [facility] Administration Montelukast Sodium 10 mg 10/15/21 12:00 Montelukast 10 Mg Tab PO DAILY@1200 [facility] Multivit/Ca Carb/B Cmplx/FA/Prenat 1 each 10/15/21 07:30 10/15/21 06:28 Folic Acid-Vit B Complex-Vit C 1 Cap PO 1 each W/BRKFST [facility] Administration Naloxone HCl 0.2 mg 10/14/21 13:22 Naloxone 0.4 Mg/Ml 1 Ml Vial IV Q2M PRN Opioid Reversal Nicotine 1 patch 10/15/21 09:30 10/15/21 09:29 Nicotine 14mg/24hr Patch TRANSDERM 1 patch DAILY [facility] Administration Pantoprazole Sodium 20 mg 10/14/21 21:00 10/14/21 21:44 Pantoprazole Sodium 40 Mg Granule Pkt PO 20 mg HS [facility] Administration Intake and Output 10/14/21 10/15/21 10/15/21 22:59 06:59 14:59 Intake Total 149.833 0 35 Output Total 2225 1600 325 Balance -3304.292 -7200 -987 Intake: IV 10 0.9NS 10 Intake, IV Titration 149.833 0 25 Amount Cefepime 2 gm In Sodium 100 25 Chloride 0.9% 100 ml @ 25 mls/hr IVPB Q12HR [facility] Rx #:[id number] Heparin Sod,Pork in 0.45% 49.833 0 NaCl 25,000 unit In 0.45 % NaCl 1 250ml.bag @ 7. 2516 UNITS/KG/HR 10 mls/ hr IV .Q24H [facility] Rx#: [id number] Output: Urine 2225 1600 325 Other: Voiding Method Indwelling Catheter Weight 141.8 kg 10/15/21 05:35 10/15/21 05:35
[2021-10-15 11:55] LABS: Glucose,Whole Blood 148 mg/dL (75-99)
[2021-10-15] MEDS: MONTELUKAST 10 MG TAB PO SCH (12:11)
--- NOTE | 2021-10-15 13:24 | P.PN ---
Subjective Progress Note Date: 10/15/21 HISTORY OF PRESENT ILLNESS 56 year-old morbidly obese female one of Dr. 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 fib, patient also known to have non-small cell see of the lung has been on chemotherapy postradiation, she had DVT and PE as well history of obstructive sleep apnea and recurrent TIA who was hospitalized in October 06 till October 14 for severe dyspnea and shortness of breath and respiratory failure was seen cardiology and pulmonary along with oncology treated for sepsis with left-sided pneumonia along with acute hypoxic respiratory failure was initially on BiPAP and transferred to Ventimask and then nasal cannula. Patient was on steroids along with antibiotics and updraft treatment regular basis all along until the day of discharge. Patient presented to the emergency department by EMS with worsening dyspnea and respiratory failure found to have severe hypoxia require BiPAP was started on IV steroids along with updraft treatment seen pulmonary quickly in the emergency department. With a high risk of pulmonary embolism patient had A. fib patient was started on heparin drip her chest x-ray showed bilateral pulmonary infiltrate CAT scan showed no evidence of any pulmonary embolism at the time but showed left upper lobe mass is also bilaterallydisease in consultation consistent with pneumonia beside her underlying malignancy and probably obstructive pneumonitis. Patient also had some hilar adenopathy of the right side the tracheobronchial tree was patent white blood cell was 16,000 hemoglobin 10.8 creatinine was 1.47 BNP was 3815 with troponin mildly elevated at 0.141, also lactic acid was 2.8 at the time. Patient was started on DuoNeb, Solu-Medr ol and giving Levaquin. Patient was hospitalized with acute hypoxic respiratory failure with significant failure and less than 24 hours before discharge. Patient be admitted will be seen cardiology as well because of elevated troponin and A. fib. 10/15: Patient is seen today in the intensive care unit. She is off BiPAP and on high flow nasal cannula at 14 L with pulse ox 90%. She has been seen by pulmonary medicine and also cardiology. Elevated troponin secondary to hypoxia. Echocardiogram has been ordered. Repeat blood work reveals WBC 14.5, hemoglobin 9.5, platelet count 94. Electrolytes normal. BUN 54 and creatinine 1.62. Capillary blood glucose running between 148 and 156. Repeat chest x-ray reveals diffuse right lung infiltrates and left basilar infiltrates with left midlung mass or masslike consolidation are demonstrated. No significant change from one day earlier. Heparin drip has been discontinued. Patient is currently on IV antibiotics the form of cefepime and Levaquin. Consult added for oncology. REVIEW OF SYSTEMS Constitutional: Mildly overweight, on BiPAP look in mild respiratory distress and had been severely dyspneic. EENT: No headache. No blurred vision or double vision, no loss of vision. No loss of Hearing, no ringing in the ears, no dizziness. No nasal drainage or congestion. No epistaxis. No sore throat. Lungs: Significant shortness of breath with extreme wheezes. Cardiovascular: No chest pain, no lower extremity edema. No palpitations. No paroxysmal nocturnal dyspnea. No orthopnea. No lightheadedness or dizziness. No syncopal episodes. Abdominal: No abdominal pain. No nausea, vomiting. No diarrhea. No constipation. No bloody or tarry stools.. No loss of appetite. Genitourinary: No dysuria, increased frequency, urgency. No urinary retention. Musculoskeletal: Generalized myalgia and arthralgia with abnormal balance and gait slight weakness in the right side. Integumentary: No wounds, no lesions. No rash or pruritus. No unusual bruising. No change in hair or nails. Neurologic: Positive weakness of the right side along with speech problem and aphasia without dysphagia currently Psychiatric: No depression. No anxiety. No mood swings. Endocrine: No abnormal blood sugars. No weight change. No excessive sweating or thirst. No cold intolerance. PHYSICAL EXAMINATION Gen: This is a morbidly obese 56-year-old female. She is resting in the ICU bed and appears to be fairly comfortable.. HEENT: Head is atraumatic, normocephalic. Pupils equal, round. Sclerae is anicteric. NECK: Supple. No JVD. No lymphadenopathy. No thyromegaly. LUNGS: Decreased breath some today with significant rhonchi mild crackles in the bases positive mild inspiratory expiratory wheezes. HEART: Regular rate and rhythm. Mild tachycardia has history ABDOMEN: Soft. Bowel sounds are present. No masses. No tenderness. EXTREMITIES: Trace edema decreased pulse bilaterally mild osteoarthritis both knees NEUROLOGICAL: Patient is awake, alert and oriented x3. Cranial nerves 2 through 12 are grossly intact. ASSESSMENT AND PLAN 1 acute on chronic hypoxic respiratory failure with diffuse infiltrate with left upper lobe pneumonia with possible obstructive pneumonitis with the large mass in the left upper lobe. Patient be covered for gram-negative pneumonia with cefepime and Levaquin as well the meanwhile continue oxygen therapy currently on high flow nasal cannula, pulmonary consultation, continue Solu-Medrol along with DuoNeb patient will be admitted to the ICU at this point. Lasix 40 mg IV every 8 hours. 2 COPD exacerbation: Most likely caused by the obstructive pneumonia along with a severe hypoxia at this point, patient will benefit from DuoNeb along with Pulmicort continue steroid IV. 3 consolidation and obstructive pneumonia: Most likely caused by the compression of her left upper lobe lung mass, patient be covered with gram-negative was started on Levaquin might benefit from adding Zosyn at this point specially with her elevated white let cell along with elevated lactic acid. 4 early sepsis: Most likely caused by pneumonia, blood culture was done patient be on IV antibiotics for now. 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 Consult added for oncology. 6 Atrial fibrillation with rapid ventricular response, heparin drip discontinued, cardiology consult appreciated, continue diltiazem CD 180 mg daily, echocardiogram. 7 elevated troponin with possible non-ST TN ruled out, this could be hy poperfusion. Acute coronary syndrome ruled out. 8 coagulopathy with DVT and pulmonary embolism, patient doing Lovenox 200 mg subcutaneous daily. 9 acute kidney injury with chronic kidney disease, continue gentle hydration repeat CMP and next 24 hours. 10 history of seizure: Has been on Keppra 750 mg twice a day resume medication. 11 hypothyroidism: Continue levothyroxine 25 g daily. 12 hyperlipidemia: Remain on atorvastatin 40 mg a day we'll resume medication. 13 chronic neuropathy: Most likely peripheral neuropathy might be chemotherapy related, remain on gabapentin 300 mg daily at bedtime. 14 severe GERD/GI prophylaxis: Patient remain on pantoprazole 20 mg daily. 15 chronic pain syndrome: Remain on hydrocodone 10/325 mg 3 times a day. 16 DVT prophylaxis: Patient currently being treated with active anticoagulation with Lovenox subcutaneous. 17. COVID-19 testing was negative. CODE STATUS: Full code. Impression and plan of care have been directed as dictated by the signing physician. Rukhsana Og nurse practitioner acting as scribe for signing physician. Objective - Vital Signs Vital signs: Vital Signs Temp 97.7 F 10/15/21 08:00 Pulse 81 10/15/21 09:00 Resp 24 10/15/21 09:00 BP 104/56 10/15/21 09:00 Pulse Ox 86 L 10/15/21 09:00 Intake & Output 10/14/21 10/15/21 10/15/21 18:59 06:59 18:59 Intake Total 149.833 35 Output Total 625 3200 325 Balance -625 -3050.167 -290 Weight 137.9 kg 141.8 kg Intake: IV 10 0.9NS 10 Intake, IV Titration 149.833 25 Amount Cefepime 2 gm In Sodium 100 25 Chloride 0.9% 100 ml @ 25 mls/hr IVPB Q12HR [facility] Rx #:[id number] Heparin Sod,Pork in 0.45% 49.833 NaCl 25,000 unit In 0.45 % NaCl 1 250ml.bag @ 7. 2516 UNITS/KG/HR 10 mls/ hr IV .Q24H [facility] Rx#: [id number] Output: Urine 625 3200 325 Other: Voiding Method Indwelling Catheter - Labs CBC & Chem 7: 10/15/21 05:35 10/15/21 05:35 Labs: Abnormal Lab Results - Last 24 Hours (Table) 10/14/21 10/14/21 10/14/21 Range/Units 09:55 09:55 09:55 WBC 16.2 H (3.8-10.6) k/uL RBC 3.78 L (3.80-5.40) m/uL Hgb 10.8 L (11.4-16.0) gm/dL Hct 33.0 L (34.0-46.0) % Plt Count 115 L (150-450) k/uL Neutrophils # (1.3-7.7) k/uL Neutrophils # (Manual) 14.74 H (1.3-7.7) k/uL Lymphocytes # (1.0-4.8) k/uL PT 12.1 H (9.0-12.0) sec APTT 46.7 H (22.0-30.0) sec BUN 56 H (7-17) mg/dL Creatinine 1.47 H (0.52-1.04) mg/dL Glucose 122 H (74-99) mg/dL POC Glucose (mg/dL) (75-99) mg/dL Calcium 8.0 L (8.4-10.2) mg/dL Troponin I (0.000-0.034) ng/mL Total Protein 5.9 L (6.3-8.2) g/dL Albumin 2.6 L (3.5-5.0) g/dL Procalcitonin (0.02-0.09) ng/mL 10/14/21 10/14/21 10/14/21 Range/Units 09:55 09:55 15:05 WBC (3.8-10.6) k/uL RBC (3.80-5.40) m/uL Hgb (11.4-16.0) gm/dL Hct (34.0-46.0) % Plt Count (150-450) k/uL Neutrophils # (1.3-7.7) k/uL Neutrophils # (Manual) (1.3-7.7) k/uL Lymphocytes # (1.0-4.8) k/uL PT (9.0-12.0) sec APTT (22.0-30.0) sec BUN (7-17) mg/dL Creatinine (0.52-1.04) mg/dL Glucose (74-99) mg/dL POC Glucose (mg/dL) (75-99) mg/dL Calcium (8.4-10.2) mg/dL Troponin I 0.141 H* 0.115 H* (0.000-0.034) ng/mL Total Protein (6.3-8.2) g/dL Albumin (3.5-5.0) g/dL Procalcitonin 0.34 H (0.02-0.09) ng/mL 10/14/21 10/14/21 10/14/21 Range/Units 18:09 18:24 19:56 WBC (3.8-10.6) k/uL RBC (3.80-5.40) m/uL Hgb (11.4-16.0) gm/dL Hct (34.0-46.0) % Plt Count (150-450) k/uL Neutrophils # (1.3-7.7) k/uL Neutrophils # (Manual) (1.3-7.7) k/uL Lymphocytes # (1.0-4.8) k/uL PT (9.0-12.0) sec APTT (22.0-30.0) sec BUN (7-17) mg/dL Creatinine (0.52-1.04) mg/dL Glucose (74-99) mg/dL POC Glucose (mg/dL) 149 H 156 H (75-99) mg/dL Calcium (8.4-10.2) mg/dL Troponin I 0.089 H* (0.000-0.034) ng/mL Total Protein (6.3-8.2) g/dL Albumin (3.5-5.0) g/dL Procalcitonin (0.02-0.09) ng/mL 10/14/21 10/15/21 10/15/21 Range/Units 20:15 05:35 05:35 WBC 14.5 H (3.8-10.6) k/uL RBC 3.35 L (3.80-5.40) m/uL Hgb 9.5 L (11.4-16.0) gm/dL Hct 30.1 L (34.0-46.0) % Plt Count 94 L (150-450) k/uL Neutrophils # 13.6 H (1.3-7.7) k/uL Neutrophils # (Manual) (1.3-7.7) k/uL Lymphocytes # 0.5 L (1.0-4.8) k/uL PT (9.0-12.0) sec APTT 168.5 H* (22.0-30.0) sec BUN 54 H (7-17) mg/dL Creatinine 1.62 H (0.52-1.04) mg/dL Glucose 159 H (74-99) mg/dL POC Glucose (mg/dL) (75-99) mg/dL Calcium 8.0 L (8.4-10.2) mg/dL Troponin I (0.000-0.034) ng/mL Total Protein (6.3-8.2) g/dL Albumin (3.5-5.0) g/dL Procalcitonin (0.02-0.09) ng/mL 04/27/22 Range/Units 05:35 WBC (3.8-10.6) k/uL RBC (3.80-5.40) m/uL Hgb (11.4-16.0) gm/dL Hct (34.0-46.0) % Plt Count (150-450) k/uL Neutrophils # (1.3-7.7) k/uL Neutrophils # (Manual) (1.3-7.7) k/uL Lymphocytes # (1.0-4.8) k/uL PT (9.0-12.0) sec APTT 55.4 H (22.0-30.0) sec BUN (7-17) mg/dL Creatinine (0.52-1.04) mg/dL Glucose (74-99) mg/dL POC Glucose (mg/dL) (75-99) mg/dL Calcium (8.4-10.2) mg/dL Troponin I (0.000-0.034) ng/mL Total Protein (6.3-8.2) g/dL Albumin (3.5-5.0) g/dL Procalcitonin (0.02-0.09) ng/mL
--- NOTE | 2021-10-15 13:42 | P.PN ---
Subjective Progress Note Date: 10/15/21 This is a morbidly obese 65-year-old female patient with a body mass index of 54. The patient was admitted earlier for shortness of breath and the patient was discharged home on 10/13/2021 to be readmitted within 24 hours following her discharge because of worsening shortness of breath and acute hypoxemic respiratory failure. I had the chance to evaluate this patient another day of her discharge. At that time, the patient reported improvement in her shortness of breath. I came to find other the patient has underlying lung cancer under the care of Dr. Maria and the patient has received a combination of chemoradiation therapy in the past and she also has a remote history of DVT and pulmonary embolism noted on anticoagulation and she was receiving Lovenox therapeutic dose during her last hospital stay. The patient had a negative, COVID 19 testing in a negative influenza testing. The patient during her hospital stay and was treated with IV Rocephin. She was given IV Solu Medrol switched to prednisone burst taper. She was given Lasix and she was switched to oral Lasix 20 mg by mouth twice a day at time of discharge. The chest x-ray was showing significant opacification of the left lung and ultrasound the chest showed minimal amount of pleural fluid that was not amenable for thoracentesis. Echo of the heart showed a normal ejection fraction of 55-60% and the patient was found to have mild to moderate mitral regurgitation. Her pro-calcitonin level during her last admission was at 4.09. The patient came into the emergency department having difficulties breathing. She was hypoxic and on 6 L of O2 her pulse ox was 83%. She was placed on high flow oxygen and her saturation gradually improved. Because of increased work of breathing, subsequent was switched to a BiPAP. She was in A. fib RVR and she converses. The chest x-ray showed bilateral pulmonary infiltrates and following that the CAT scan of the chest was done that showed no evidence of any pulmonary embolism. There is a left upper lobe mass and there is also bilateral airspace disease/consolidation and the consolidation because much more dense and there is breath diseases dense in the left upper lobe which could be a underlying malignancy. At the same time, there was suspected hilar adenopathy more so on the right. The tracheobronchial tree was patent. There was some indeterminate pulmonary nodules consistent with metastatic disease and there was some underlying splenomegaly. The patient's white cell count remains elevated at 16.2 with a hemoglobin of 10.8, platelet count was 115 during this current admission, the BM was at 56 with a creatinine of 1.47 and the sodium level of 139, proBNP level was 3850 and the troponin level was at 0.141, normal LFTs, calcium level was 8.0, lactic acid level was at 2.8. The patient was started again on DuoNeb nebulized treatments around the clock, IV Solu-Medrol, and she was given Levaquin. In terms of lung cancer, the patient was diagnosed having a left lung mass measuring CT chest 08/12/17 revealed 1.5x1.7cm left hilar lesion, on 08/21/2017 PET showed enlarging left lung nodule (compared to PET scan in 2014) with intermediate uptake. Repeat CT chest 11/17/18 revealed revealed 1.8x2.6cm mass in left which increased in size compared to prior CT scan. Brain MRI 11/17/18, done for dizzyness, was negative for metastatic disease. 11/23/18 she had a bronchoscopy, transbronchial biopsy of left lower lobe, atypical cells suggestive of low grade pulmonary adenocarcinoma. Repeat CT 12/10/18 revealed 2.9cm LLL mass. She was evaluated by Throracic surgeon and was felt not to be a surgical candiate due to her co-morbidities and ended up having SBRT. She continued to follow up with Dr. Swann after radiation. PET 05/10 revealed suspicious uptake and increasing size of left hilar node and new small right lung nodules. She was referred back to Oncology 08/20/20. Repeat PET 09/03/20 revealed increasing size of previously irradiated area, SUV remained stable at 9, no additional suspicious finding. Bronchoscopy, biopsy was suspicious for atypical cells. It was decided by Rad/Onc to wait and repeat PET. 12/10/20 repeat PET revealed suspicious SUV in left hilar region with more solid component, representing local recurrence. A left breast lesion was evaluated by Dr. Swann with mammograms and U/S which came back negative. 01/06/21 she started concurrent weekly taxol/carboplatin with radiation completed on 02/17/21. 04/29/21 repeat PET scan revealed stable findings. It was decided not to proceed with immunotherapy due to connective tissue disease. She has Sjogrens disease, on hydroxychloroquine. She is lupus anticoagulant positive, was on warfarin, now on therapeutic dose of lovenox for the same. 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 On today's evaluation of 10/15/2021, seeing the patient for a follow-up. The patient is feeling slightly better compared to yesterday. The patient was on BiPAP throughout the night the pressure of 12/60 cm of water and FiO2 of 50%. This morning, she was taken off the BiPAP and the patient was placed on 14 L of O2 nasal cannula and she is being gradually weaned off. She is able to maintain a saturation above 88%. She is afebrile. She is hemodynamically stable. She was subjected to a combination of antibiotics and the patient was given a combination of Levaquin and cefepime. The patient's pro-calcitonin level was 0.34. The repeat chest x-ray from today still showing diffuse but the pulmonary infiltrates with probably some improvement in infiltrates on the right and the left lung base. Noted the patient was also being diuresis with IV Lasix. The patient's overall fluid balance is -3.6 L over the past 12 hours and the patient is headed towards more diuresis over the next 24 hours. The patient is also on IV Solu-Medrol. I was able to retrieve an old computed tomography scan of the chest that was done at [facility] from October 2020. At that time, the patient had a left upper lobe mass and several nodular densities in the left upper lobe and the right lung consistent with metastatic disease. Nevertheless, the right lung was fairly of any acute pulmonary infiltration. Note that the mass in the left upper lobe has grown in size in comparison. As such, there is obvious concern for progression of her underlying non-small cell lung cancer. She remains on IV heparin and the patient has had some troponin leaks. The patient will be taken off the IV heparin and the patient will be switched back to Lovenox as a long-term anticoagulants. Objective - Vital Signs Vital signs: Vital Signs Temp 97.7 F 10/15/21 12:00 Pulse 85 10/15/21 12:00 Resp 26 H 10/15/21 12:00 BP 109/56 10/15/21 12:00 Pulse Ox 90 L 10/15/21 12:00 Intake & Output 10/14/21 10/15/21 10/15/21 18:59 06:59 18:59 Intake Total 149.833 125 Output Total 625 3200 1125 Balance -809 -7100.167 -1000 Weight 137.9 kg 141.8 kg Intake: IV 25 0.9NS 25 Intake, IV Titration 149.833 100 Amount Cefepime 2 gm In Sodium 100 100 Chloride 0.9% 100 ml @ 25 mls/hr IVPB Q12HR [facility] Rx #:[id number] Heparin Sod,Pork in 0.45% 49.833 NaCl 25,000 unit In 0.45 % NaCl 1 250ml.bag @ 7. 2516 UNITS/KG/HR 10 mls/ hr IV .Q24H [facility]ARIA Rx#: [id number] Output: Urine 625 3200 1125 Other: Voiding Method Indwelling Catheter Indwelling Catheter - Exam GENERAL EXAM: Alert , still having some shortness of breath, particularly on a BiPAP at a pressure of 14 liters O2 nasal cannula. The patient is morbidly obese. Breathing is less labored compared to yesterday. The patient is less Short of breath compared to yesterday. HEAD: Normocephalic. EYES: Normal reaction of pupils, equal size. NOSE: Clear with pink turbinates. THROAT: No erythema or exudates. NECK: No masses, no JVD. CHEST: No chest wall deformity. LUNGS: Equal air entry with few scattered rhonchi more so on the left. CVS: S1 and S2 normal with no audible murmur, regular rhythm. ABDOMEN: No hepatosplenomegaly, normal bowel sounds, no guarding or rigidity. SPINE: No scoliosis or deformity SKIN: No rashes CENTRAL NERVOUS SYSTEM: No focal deficits, tone is normal in all 4 extremities. EXTREMITIES: There is increased bilateral peripheral edema. No clubbing, no cyanosis. Peripheral pulses are intact. - Labs CBC & Chem 7: 10/15/21 05:35 10/15/21 05:35 Labs: Abnormal Lab Results - Last 24 Hours (Table) 10/14/21 10/14/21 10/14/21 Range/Units 09:55 15:05 18:09 WBC (3.8-10.6) k/uL RBC (3.80-5.40) m/uL Hgb (11.4-16.0) gm/dL Hct (34.0-46.0) % Plt Count (150-450) k/uL Neutrophils # (1.3-7.7) k/uL Lymphocytes # (1.0-4.8) k/uL APTT (22.0-30.0) sec BUN (7-17) mg/dL Creatinine (0.52-1.04) mg/dL Glucose (74-99) mg/dL POC Glucose (mg/dL) 149 H (75-99) mg/dL Calcium (8.4-10.2) mg/dL Troponin I 0.115 H* (0.000-0.034) ng/mL Procalcitonin 0.34 H (0.02-0.09) ng/mL 10/14/21 10/14/21 10/14/21 Range/Units 18:24 19:56 20:15 WBC (3.8-10.6) k/uL RBC (3.80-5.40) m/uL Hgb (11.4-16.0) gm/dL Hct (34.0-46.0) % Plt Count (150-450) k/uL Neutrophils # (1.3-7.7) k/uL Lymphocytes # (1.0-4.8) k/uL APTT 168.5 H* (22.0-30.0) sec BUN (7-17) mg/dL Creatinine (0.52-1.04) mg/dL Glucose (74-99) mg/dL POC Glucose (mg/dL) 156 H (75-99) mg/dL Calcium (8.4-10.2) mg/dL Troponin I 0.089 H* (0.000-0.034) ng/mL Procalcitonin (0.02-0.09) ng/mL 10/15/21 10/15/21 10/15/21 Range/Units 05:35 05:35 05:35 WBC 14.5 H (3.8-10.6) k/uL RBC 3.35 L (3.80-5.40) m/uL Hgb 9.5 L (11.4-16.0) gm/dL Hct 30.1 L (34.0-46.0) % Plt Count 94 L (150-450) k/uL Neutrophils # 13.6 H (1.3-7.7) k/uL Lymphocytes # 0.5 L (1.0-4.8) k/uL APTT 55.4 H (22.0-30.0) sec BUN 54 H (7-17) mg/dL Creatinine 1.62 H (0.52-1.04) mg/dL Glucose 159 H (74-99) mg/dL POC Glucose (mg/dL) (75-99) mg/dL Calcium 8.0 L (8.4-10.2) mg/dL Troponin I (0.000-0.034) ng/mL Procalcitonin (0.02-0.09) ng/mL 10/15/21 Range/Units 11:53 WBC (3.8-10.6) k/uL RBC (3.80-5.40) m/uL Hgb (11.4-16.0) gm/dL Hct (34.0-46.0) % Plt Count (150-450) k/uL Neutrophils # (1.3-7.7) k/uL Lymphocytes # (1.0-4.8) k/uL APTT (22.0-30.0) sec BUN (7-17) mg/dL Creatinine (0.52-1.04) mg/dL Glucose (74-99) mg/dL POC Glucose (mg/dL) 148 H (75-99) mg/dL Calcium (8.4-10.2) mg/dL Troponin I (0.000-0.034) ng/mL Procalcitonin (0.02-0.09) ng/mL Assessment and Plan Plan: Acute on chronic hypoxemic respiratory failure with development of diffuse breath and pulmonary infiltrates/with an area of masslike consolidation in the left upper lobe which could be an area of malignancy as the patient is known to have non-small cell lung cancer/adenocarcinoma of the left lung. The patient is also receiving radiation therapy to that area in the past. Noted the patient was recently in the hospital treated for pneumonia and discharged home to present back within 24 hours with worsening shortness of breath and hypoxemia. CAT scan of the chest was done and reveals a masslike consolidation of left upper lobe in addition to diffuse breath and airspace disease which may be infectious versus malignant in nature with progression of her underlying lung cancer. Clinically the patient is feeling better on today's evaluation of the patient was treated with a combination of antibiotics and diuresis and the patient is in a negative fluid balance and there has been intermittent for the oxygenation and the patient is currently on 14 L O2 nasal cannula and the patient was taken off the BiPAP. The patient had a previous CAT scan of the [facility] from October 2020 and in comparison, the left upper lobe masses increased in size over the past 1 year. Nevertheless, the diffuse airspace disease seen bilaterally in the right lung and the left lower lobe is of a new onset. Rule out superinfection. Rule out tumor progression. Rule out interstitial edema. The patient is responding to the above-mentioned treatment for now. Paroxysmal atrial fibrillation with RVR at time of admission, current rhythm is sinus COPD Chronic and ongoing tobacco dependence. History of lung cancer, likely a stage IV adenocarcinoma, status post chemoradiation, completed, February 2021. The patient was diagnosed with lung cancer 2018. Please refer to the details as mentioned above regarding the patient's history of non-small cell lung cancer which is probably an adenocarcinoma. History of protein C&S deficiency. History of DVT/pulmonary embolism. Hyperlipidemia. Hypothyroidism. History of seizure disorder. History of depression. Chronic kidney disease Troponin leak, nonspecific, Plan Keep this patient to the ICU Continue BiPAP for respiratory support, as needed and overnight Continue bronchodilators Continue IV Solu-Medrol Continue BiPAP for respiratory support pro-calcitonin level is mildly elevated Continue IV Lasix Continue combination of Zosyn and Levaquin This continued IV heparin put the patient on Lovenox 200 mg subcu on a daily basis Reviewed the old computed tomography scan of the chest and there is obvious concern for disease progression We'll give the patient another 24 hours here in the ICU for further optimization and diuresis and antibiotic treatment. At the pulmonary infiltrates remain unchanged, she may need a bronchoscopy and biopsy. We'll continue to follow make further recommendations based on her progress.
[2021-10-15] MEDS: HYDROcodone/APAP 10-325MG 1 EACH TAB PO PRN ×2 (14:07→21:30)
--- NOTE | 2021-10-15 14:54 | P.CONS ---
History of Present Illness - Reason for Consult Consult date: 10/15/21 Acute on CHronic Hypoxic reapiratory failure Requesting physician: Rukhsana Og - History of Present Illness Mrs. Royal is a very pleasant pt of Dr. Maria who had a known left lung nodule since 2014, on monitoring. CT chest 08/12/17 revealed 1.5x1.7cm left hilar lesion, on 08/21/2017 PET showed enlarging left lung nodule (compared to PET scan in 2014) with intermediate uptake. Repeat CT chest 11/17/18 revealed revealed 1.8x2.6cm mass in left which increased in size compared to prior CT scan. Brain MRI 11/17/18, done for dizzyness, was negative for metastatic disease. 11/23/18 she had a bronchoscopy, transbronchial biopsy of left lower lobe, atypical cells suggestive of low grade pulmonary adenocarcinoma. Repeat CT 12/10/18 revealed 2.9cm LLL mass. She was evaluated by Throracic surgeon and was felt not to be a surgical candiate due to her co-morbidities and ended up having SBRT. She continued to follow up with Dr. Swann after radiation. PET 05/10 revealed suspicious uptake and increasing size of left hilar node and new small right lung nodules. She was referred back to Oncology 08/20/20. Repeat PET 09/03/20 revealed increasing size of previously irradiated area, SUV remained stable at 9, no additional suspicious finding. Bronchoscopy, biopsy was suspicious for atypical cells. It was decided by Rad/Onc to wait and repeat PET. 12/10/20 repeat PET revealed suspicious SUV in left hilar region with more solid component, representing local recurrence. A left breast lesion was evaluated by Dr. Swann with mammograms and U/S which came back negative. 01/06/21 she started concurrent weekly taxol/carboplatin with radiation completed on 02/17/21. 04/29/21 repeat PET scan revealed stable findings. It was decided not to proceed with immunotherapy due to connective tissue disease. She has Sjogrens disease, on hydroxychloroquine. She is lupus anticoagulant positive, was on warfarin, now on therapeutic dose of lovenox for the same. She has chronic dyspnea, she has Hx of iron deficiency anemia. Pt came to ofc 10/07/21 with resp c/o, started Wednesday, reports a T max of 102+F She was admitted till 10/12/21 and then discharged after improved and weaned down on oxygen. She now represents with similiar hypoxia. In care of ICU requiring hi flow Review of Systems All systems: negative Constitutional: Reports as per HPI Past Medical History Past Medical History: Blood Disorder, Cancer, COPD, CVA/TIA, Deep Vein Thrombosis (DVT), GERD/Reflux, Pneumonia, Pulmonary Embolus (PE), Seizure Disorder, Sleep Apnea/CPAP/BIPAP, Thyroid Disorder Additional Past Medical History / Comment(s): L lung cancer with radiation/chemo and pt completed 01/2021, TIA-no residual effects, blood clot left leg and PE left lung, BLANCA with Cpap, last seizure 6-7 years ago, bronchitis, protein S and C deficiency, bilateral ankle/pedal edema, past hx falls, DDD, chronic back and bilateral foot pain, weakness in rt legs thought d/t pinched nerve in back, vertigo. History of Any Multi-Drug Resistant Organisms: None Reported Past Surgical History: Tubal Ligation, Uterine Ablation Additional Past Surgical History / Comment(s): D&C, bronchoscopy with L lung biopsy x 2 Past Anesthesia/Blood Transfusion Reactions: No Reported Reaction Past Psychological History: Depression Smoking Status: Current every day smoker - Past Family History Mother Family Medical History: CVA/TIA Additional Family Medical History / Comment(s): Mother of a CVA at the age of 71 yrs. Brother(s) Family Medical History: No Reported History Additional Family Medical History / Comment(s): Patient has no children. Father Additional Family Medical History / Comment(s): Father was an alcoholic and drug addict. Medications and Allergies Home Medications Medication Instructions Recorded Confirmed Type Citalopram Hydrobromide [CeleXA] 20 mg PO W/BRKFST 11/16/18 10/14/21 History HYDROcodone/APAP 10-325MG [[place] 1 tab PO TID PRN 11/16/18 10/14/21 History 10-325] Pantoprazole Sodium 20 mg PO HS 11/16/18 10/14/21 History Tiotropium 18 Mcg/Puff [Spiriva] 1 cap INHALATION RT-HS 11/16/18 10/14/21 History Albuterol Sulfate [Ventolin HFA] 1 - 2 puff INHALATION RT-Q6H PRN 11/14/20 10/14/21 History Levothyroxine Sodium [Synthroid] 25 mcg PO AC-BRKFST 11/14/20 10/14/21 History Albuterol Nebulized [Ventolin 2.5 mg INHALATION RT-TID PRN 01/02/21 10/14/21 History Nebulized] Atorvastatin [Lipitor] 40 mg PO W/BRKFST 01/02/21 10/14/21 History Aspirin 325 mg PO HS 10/06/21 10/14/21 History Baclofen [Lioresal] 20 mg PO BID 10/06/21 10/14/21 History Budesonide/Formoterol Fumarate 2 puff INHALATION RT-DAILY 10/06/21 10/14/21 History [Symbicort 160-4.5 Mcg Inhaler] Enoxaparin [Lovenox] 200 mg SQ DAILY 10/06/21 10/14/21 History Ergocalciferol [Vitamin D2 (1250 1,250 mcg PO TU 10/06/21 10/14/21 History Mcg = 13622 Iu)] Gabapentin 300 mg PO HS 10/06/21 10/14/21 History Montelukast [Singulair] 10 mg PO DAILY@1200 10/06/21 10/14/21 History Vitamin B Complex 1 cap PO W/BRKFST 10/06/21 10/14/21 History levETIRAcetam [Keppra] 750 mg PO BID 10/06/21 10/14/21 History Diltiazem Cd [Cardizem CD] 180 mg PO DAILY #30 10/13/21 10/14/21 Rx Furosemide [Lasix] 20 mg PO DAILY 30 Days tab 10/13/21 10/14/21 Rx predniSONE [Deltasone] 40 mg PO DAILY 3 Days tab 10/13/21 10/14/21 Rx Allergies Allergy/AdvReac Type Severity Reaction Status Date / Time doxycycline Allergy Rash/Hives Verified 10/14/21 10:33 Penicillins Allergy Rash/Hives, Verified 10/14/21 10:33 "hard to heal" Sulfa (Sulfonamide Allergy Rash/Hives,"hard Verified 10/14/21 10:33 Antibiotics) to heal" wool Allergy Rash/Hives, Verified 10/14/21 10:33 itching ivory soap Allergy Rash/Hives, Uncoded 10/14/21 10:33 itching Physical Exam Vitals: Vital Signs Temp Pulse Resp BP Pulse Ox 10/15/21 09:00 81 24 104/56 86 L 10/15/21 08:22 90 10/15/21 08:11 89 10/15/21 08:00 97.7 F 98 25 H 112/66 91 L 10/15/21 07:00 85 23 116/65 93 L 10/15/21 06:00 68 25 H 108/61 92 L 10/15/21 05:00 67 21 109/58 90 L 10/15/21 04:00 97.8 F 62 20 106/60 92 L 10/15/21 03:00 71 17 110/62 93 L 10/15/21 02:00 68 18 100/65 92 L 10/15/21 01:00 71 19 105/56 93 L 10/15/21 00:11 82 22 93 L 10/15/21 00:00 98.2 F 83 23 108/56 91 L 10/14/21 23:00 90 22 113/79 90 L 10/14/21 22:00 97.8 F 82 26 H 125/73 93 L 10/14/21 21:28 85 22 91 L 10/14/21 20:40 85 10/14/21 20:35 85 10/14/21 19:00 81 23 125/80 94 L 10/14/21 18:00 86 27 H 127/72 93 L 10/14/21 17:00 92 27 H 132/82 94 L 10/14/21 16:58 90 10/14/21 16:48 90 10/14/21 16:11 96 28 H 122/76 91 L 10/14/21 16:00 104 H 21 104/82 86 L 10/14/21 15:00 87 25 H 122/75 96 10/14/21 14:43 102 H 31 H 122/75 92 L 10/14/21 14:00 91 27 H 109/62 98 10/14/21 13:13 104 H 32 H 129/67 96 10/14/21 13:00 92 27 H 121/64 98 10/14/21 12:31 96 10/14/21 12:21 93 10/14/21 12:00 101 H 31 H 92/40 94 L 10/14/21 11:56 106 H 19 92/40 91 L 10/14/21 11:00 92 28 H 122/60 94 L 10/14/21 10:00 105 H 22 110/59 86 L Intake and Output 10/14/21 10/15/21 10/15/21 22:59 06:59 14:59 Intake Total 149.833 0 35 Output Total 2225 1600 325 Balance -2075.167 -1600 -290 Intake: IV 10 0.9NS 10 Intake, IV Titration 149.833 0 25 Amount Cefepime 2 gm In Sodium 100 25 Chloride 0.9% 100 ml @ 25 mls/hr IVPB Q12HR [facility] Rx #:[id number] Heparin Sod,Pork in 0.45% 49.833 0 NaCl 25,000 unit In 0.45 % NaCl 1 250ml.bag @ 7. 2516 UNITS/KG/HR 10 mls/ hr IV .Q24H [facility] Rx#: [id number] Output: Urine 2225 1600 325 Other: Voiding Method Indwelling Catheter Weight 141.8 kg - Constitutional General appearance: cooperative, mild distress, obese - EENT Eyes: anicteric sclerae, EOMI ENT: hearing grossly normal, normal oropharynx - Neck Neck: no lymphadenopathy - Respiratory Respiratory: Increased effort and hypoxic right: diminished, left: rhonchi, wheezing - Cardiovascular Rhythm: irregularly irregular Peripheral Edema: bilateral: None - Gastrointestinal General gastrointestinal: no absent bowel sounds, no decreased bowel sounds, no distended, no hepatomegaly, no hyperactive bowel sounds, normal bowel sounds, no organomegaly, no rigid, no scaphoid, soft, no splenomegaly, no tenderness, no umbilical hernia, no ventral hernia - Integumentary Integumentary: normal - Neurologic Neurologic: CNII-XII intact - Musculoskeletal Musculoskeletal: generalized weakness, strength equal bilaterally - Psychiatric Psychiatric: A&O x's 3, appropriate affect, intact judgment & insight Results CBC & Chem 7: 10/15/21 05:35 10/15/21 05:35 Labs: Abnormal Lab Results - Last 24 Hours (Table) 10/14/21 10/14/21 10/14/21 Range/Units 09:55 09:55 09:55 WBC 16.2 H (3.8-10.6) k/uL RBC 3.78 L (3.80-5.40) m/uL Hgb 10.8 L (11.4-16.0) gm/dL Hct 33.0 L (34.0-46.0) % Plt Count 115 L (150-450) k/uL Neutrophils # (1.3-7.7) k/uL Neutrophils # (Manual) 14.74 H (1.3-7.7) k/uL Lymphocytes # (1.0-4.8) k/uL PT 12.1 H (9.0-12.0) sec APTT 46.7 H (22.0-30.0) sec BUN 56 H (7-17) mg/dL Creatinine 1.47 H (0.52-1.04) mg/dL Glucose 122 H (74-99) mg/dL POC Glucose (mg/dL) (75-99) mg/dL Calcium 8.0 L (8.4-10.2) mg/dL Troponin I (0.000-0.034) ng/mL Total Protein 5.9 L (6.3-8.2) g/dL Albumin 2.6 L (3.5-5.0) g/dL Procalcitonin (0.02-0.09) ng/mL 10/14/21 10/14/21 10/14/21 Range/Units 09:55 09:55 15:05 WBC (3.8-10.6) k/uL RBC (3.80-5.40) m/uL Hgb (11.4-16.0) gm/dL Hct (34.0-46.0) % Plt Count (150-450) k/uL Neutrophils # (1.3-7.7) k/uL Neutrophils # (Manual) (1.3-7.7) k/uL Lymphocytes # (1.0-4.8) k/uL PT (9.0-12.0) sec APTT (22.0-30.0) sec BUN (7-17) mg/dL Creatinine (0.52-1.04) mg/dL Glucose (74-99) mg/dL POC Glucose (mg/dL) (75-99) mg/dL Calcium (8.4-10.2) mg/dL Troponin I 0.141 H* 0.115 H* (0.000-0.034) ng/mL Total Protein (6.3-8.2) g/dL Albumin (3.5-5.0) g/dL Procalcitonin 0.34 H (0.02-0.09) ng/mL 10/14/21 10/14/21 10/14/21 Range/Units 18:09 18:24 19:56 WBC (3.8-10.6) k/uL RBC (3.80-5.40) m/uL Hgb (11.4-16.0) gm/dL Hct (34.0-46.0) % Plt Count (150-450) k/uL Neutrophils # (1.3-7.7) k/uL Neutrophils # (Manual) (1.3-7.7) k/uL Lymphocytes # (1.0-4.8) k/uL PT (9.0-12.0) sec APTT (22.0-30.0) sec BUN (7-17) mg/dL Creatinine (0.52-1.04) mg/dL Glucose (74-99) mg/dL POC Glucose (mg/dL) 149 H 156 H (75-99) mg/dL Calcium (8.4-10.2) mg/dL Troponin I 0.089 H* (0.000-0.034) ng/mL Total Protein (6.3-8.2) g/dL Albumin (3.5-5.0) g/dL Procalcitonin (0.02-0.09) ng/mL 10/14/21 10/15/21 10/15/21 Range/Units 20:15 05:35 05:35 WBC 14.5 H (3.8-10.6) k/uL RBC 3.35 L (3.80-5.40) m/uL Hgb 9.5 L (11.4-16.0) gm/dL Hct 30.1 L (34.0-46.0) % Plt Count 94 L (150-450) k/uL Neutrophils # 13.6 H (1.3-7.7) k/uL Neutrophils # (Manual) (1.3-7.7) k/uL Lymphocytes # 0.5 L (1.0-4.8) k/uL PT (9.0-12.0) sec APTT 168.5 H* (22.0-30.0) sec BUN 54 H (7-17) mg/dL Creatinine 1.62 H (0.52-1.04) mg/dL Glucose 159 H (74-99) mg/dL POC Glucose (mg/dL) (75-99) mg/dL Calcium 8.0 L (8.4-10.2) mg/dL Troponin I (0.000-0.034) ng/mL Total Protein (6.3-8.2) g/dL Albumin (3.5-5.0) g/dL Procalcitonin (0.02-0.09) ng/mL 10/15/21 Range/Units 05:35 WBC (3.8-10.6) k/uL RBC (3.80-5.40) m/uL Hgb (11.4-16.0) gm/dL Hct (34.0-46.0) % Plt Count (150-450) k/uL Neutrophils # (1.3-7.7) k/uL Neutrophils # (Manual) (1.3-7.7) k/uL Lymphocytes # (1.0-4.8) k/uL PT (9.0-12.0) sec APTT 55.4 H (22.0-30.0) sec BUN (7-17) mg/dL Creatinine (0.52-1.04) mg/dL Glucose (74-99) mg/dL POC Glucose (mg/dL) (75-99) mg/dL Calcium (8.4-10.2) mg/dL Troponin I (0.000-0.034) ng/mL Total Protein (6.3-8.2) g/dL Albumin (3.5-5.0) g/dL Procalcitonin (0.02-0.09) ng/mL Assessment and Plan (1) Respiratory failure Current Visit: Yes Status: Acute Code(s): J96.90 - RESPIRATORY FAILURE, UNSP, UNSP W HYPOXIA OR HYPERCAPNIA SNOMED Code(s): 532777501 (2) Acute respiratory distress Current Visit: Yes Status: Acute Priority: High Code(s): R06.03 - ACUTE RESPIRATORY DISTRESS SNOMED Code(s): 308490023 (3) Hypoxia Current Visit: Yes Status: Acute Code(s): R09.02 - HYPOXEMIA SNOMED Code(s): 094574011 (4) Lung cancer Current Visit: Yes Status: Acute Priority: High Code(s): C34.90 - MALIGNANT NEOPLASM OF UNSP PART OF UNSP BRONCHUS OR LUNG SNOMED Code(s): 212291631 (5) Bicytopenia Current Visit: No Status: Acute Priority: High Code(s): D75.89 - OTHER SPECIFIED DISEASES OF BLOOD AND BLOOD-FORMING ORGANS SNOMED Code(s): 61656557 Plan: Continue care per pulmonary and ICU. Await recovery. Hold all treatments in oncologic care prior to recovery of acute situation.
[2021-10-15 16:51] LABS: Glucose,Whole Blood 201 mg/dL (75-99)
[2021-10-15 20:52] LABS: Glucose,Whole Blood 278 mg/dL (75-99)
[2021-10-15] MEDS: GABAPENTIN 300 MG CAP PO SCH (21:31)
[2021-10-15] MEDS: ASPIRIN 325 MG TAB PO SCH (21:31)
[2021-10-15] MEDS: PANTOPRAZOLE SODIUM 40 MG GRANULE PKT PO SCH (21:31)
[2021-10-16] MEDS: methylPREDNISolone SOD SUCCI 125 MG/2 ML VIAL IV SCH ×2 (00:33→08:37)
[2021-10-16] MEDS: FUROSEMIDE 10 MG/ML 4 ML VIAL IV SCH ×3 (02:50→17:54)
[2021-10-16] MEDS: SODIUM CHLORIDE 0.9% 1,000 ML IV SCH (03:10)
--- NOTE | 2021-10-16 06:12 | XR ---
EXAMINATION TYPE: XR chest 1V DATE OF EXAM: 10/16/2021 CLINICAL HISTORY: Difficulty breathing progress study. TECHNIQUE: Single AP portable upright view of the chest is obtained. COMPARISON: Chest x-ray and CTA chest from one day earlier and older studies. FINDINGS: Right lung diffuse reticular increased opacity redemonstrated. There is more dense masslik e consolidation left mid lung redemonstrated. Left basilar opacity is again seen. Cardiac silhouette size stable and within normal limits. Osseous structures are intact. IMPRESSION: Diffuse right lung infiltrates and left basilar infiltrates with left mid lung mass or ma sslike consolidation all redemonstrated. No significant change from one day earlier.
[2021-10-16 06:27] LABS: Glucose,Whole Blood 183 mg/dL (75-99)
[2021-10-16] MEDS: LEVOTHYROXINE 25 MCG TAB PO SCH (06:36)
[2021-10-16] MEDS: CITALOPRAM HYDROBROMIDE 20 MG TAB PO SCH (06:36)
[2021-10-16] MEDS: ATORVASTATIN 40 MG TAB PO SCH (06:36)
[2021-10-16] MEDS: INSULIN ASPART (NovoLOG) 100 UNIT/ML VIAL SQ SCH ×4 (06:36→20:02)
[2021-10-16] MEDS: FOLIC ACID-VIT B COMPLEX-VIT C 1 CAP PO SCH (06:37)
[2021-10-16 07:49] LABS: Basophils # (A) 0.1 k/uL (0-0.2); Basophils % (A) 0 %; Eosinophils # (A) 0.2 k/uL (0-0.7); Eosinophils % (A) 1 %; HCT 32.7 % (34.0-46.0); HGB 10.1 gm/dL (11.4-16.0); Hypochromasia Slight; Lymphocytes # (A) 0.4 k/uL (1.0-4.8); Lymphocytes % (A) 2 %; MCH 28.3 pg (25.0-35.0); MCV 91.4 fL (80.0-100.0); Mean Platelet Volume 9.3; Monocytes # (A) 0.3 k/uL (0-1.0); Monocytes % (A) 1 %; Neutrophils # (A) 19.1 k/uL (1.3-7.7); Neutrophils % (A) 96 %; Platelet Count 113 k/uL (150-450); RBC 3.58 m/uL (3.80-5.40); RDW 14.9 % (11.5-15.5)
[2021-10-16] MEDS: HYDROcodone/APAP 10-325MG 1 EACH TAB PO PRN ×2 (08:00→20:03)
[2021-10-16] MEDS: BACLOFEN 10 MG TAB PO SCH ×2 (08:01→20:02)
[2021-10-16 08:22] LABS: Albumin 2.7 g/dL (3.5-5.0); Calcium 7.9 mg/dL (8.4-10.2); Potassium 3.9 mmol/L (3.5-5.1); Total Bilirubin 0.5 mg/dL (0.2-1.3); Total Protein 5.9 g/dL (6.3-8.2)
[2021-10-16] MEDS: IPRATROPIUM-ALBUTEROL 3 ML NEB INHALATION SCH ×4 (08:31→20:37)
[2021-10-16] MEDS: SYMBICORT 160-4.5 MCG INHALER INHALATION SCH (08:31)
[2021-10-16] MEDS: NICOTINE 14MG/24HR PATCH TRANSDERM SCH (08:37)
[2021-10-16] MEDS: ENOXAPARIN 100 MG/ML SYRINGE SQ SCH (08:37)
[2021-10-16] MEDS: DILTIAZEM CD 180 MG CAP.ER.24H PO SCH (08:49)
[2021-10-16] MEDS ORDERED: LEVOFLOXACIN 750MG-D5W PMX 750 MG in DEXTROSE/WATER 1 150ML.BAG IVPB SCH (09:00)
[2021-10-16] MEDS: CEFEPIME 2 GM in SODIUM CHLORIDE 0.9% 100 ML IVPB SCH ×2 (09:49→20:02)
--- NOTE | 2021-10-16 10:18 | P.PN ---
Subjective Progress Note Date: 10/16/21 56-year-old lady with history of carcinoma of the lung presented to hospital with hypoxia shortness of breath and respiratory distress. While in the ER she apparently had episode of atrial fibrillation that was transient and self- limited. there is no EKG or rhythm strips of this episode. She remains in normal sinus rhythm and has not had any reports episodes of atrial fib or ectopy. patient had an echocardiogram on October 07, 2021 which showed a normal LV function with an ejection fraction of 55-60%, and mild pulmonary hypertension, mild to moderate mitral valve regurgitation. Patient is seen today in ICU sitting in bed resting comfortably in no signs of acute distress.She denies chest pain or shortness of breath today. Blood pressure remains well-controlled, heart rate is controlled. Objective - Vital Signs Vital signs: Vital Signs Temp 97.9 F 10/16/21 04:00 Pulse 64 10/16/21 08:43 Resp 18 10/16/21 08:43 BP 115/67 10/16/21 07:00 Pulse Ox 93 L 10/16/21 08:29 Intake & Output 10/15/21 10/16/21 10/16/21 18:59 06:59 18:59 Intake Total 160 635 5 Output Total 1945 2425 200 Balance -1785 -1790 -195 Weight 140 kg Intake: IV 60 55 5 0.9NS 60 55 5 Intake, IV Titration 100 100 Amount Cefepime 2 gm In Sodium 100 100 Chloride 0.9% 100 ml @ 25 mls/hr IVPB Q12HR [facility] Rx #:[id number] Oral 480 Output: Urine 1944 2425 200 Other: Voiding Method Indwelling Catheter Indwelling Catheter - Exam PHYSICAL EXAM: VITAL SIGNS: Reviewed. GENERAL: Well-developed in no acute distress. HEENT: Head is normocephalic. Pupils are equal, round. Sclerae anicteric. Mucous membranes of the mouth are moist. NECK: Supple. No JVD or thyromegaly RESPIRATORY: Respirations even and unlabored. Lungs diminished to auscultation bilaterally.patient remains on 10 L high flow CARDIO: Regular rate and rhythm. S1 and S2 heard. No murmur or gallops. EXTREMITIES: Normal range of motion. No clubbing or cyanosis. Peripheral pulses intact. mild bilateral lower extremity edema NEURO: Orientated to person, time, mood is appropriate - Labs CBC & Chem 7: 10/16/21 07:35 10/16/21 07:35 Labs: Abnormal Lab Results - Last 24 Hours (Table) 10/15/21 10/15/21 10/15/21 Range/Units 11:53 16:50 20:49 WBC (3.8-10.6) k/uL RBC (3.80-5.40) m/uL Hgb (11.4-16.0) gm/dL Hct (34.0-46.0) % Plt Count (150-450) k/uL Neutrophils # (1.3-7.7) k/uL Lymphocytes # (1.0-4.8) k/uL APTT (22.0-30.0) sec BUN (7-17) mg/dL Creatinine (0.52-1.04) mg/dL Glucose (74-99) mg/dL POC Glucose (mg/dL) 148 H 201 H 278 H (75-99) mg/dL Calcium (8.4-10.2) mg/dL Total Protein (6.3-8.2) g/dL Albumin (3.5-5.0) g/dL 10/16/21 10/16/21 10/16/21 Range/Units 06:25 07:35 07:35 WBC 20.0 H (3.8-10.6) k/uL RBC 3.58 L (3.80-5.40) m/uL Hgb 10.1 L (11.4-16.0) gm/dL Hct 32.7 L (34.0-46.0) % Plt Count 113 L (150-450) k/uL Neutrophils # 19.1 H (1.3-7.7) k/uL Lymphocytes # 0.4 L (1.0-4.8) k/uL APTT 40.6 H (22.0-30.0) sec BUN (7-17) mg/dL Creatinine (0.52-1.04) mg/dL Glucose (74-99) mg/dL POC Glucose (mg/dL) 183 H (75-99) mg/dL Calcium (8.4-10.2) mg/dL Total Protein (6.3-8.2) g/dL Albumin (3.5-5.0) g/dL 10/16/21 Range/Units 07:35 WBC (3.8-10.6) k/uL RBC (3.80-5.40) m/uL Hgb (11.4-16.0) gm/dL Hct (34.0-46.0) % Plt Count (150-450) k/uL Neutrophils # (1.3-7.7) k/uL Lymphocytes # (1.0-4.8) k/uL APTT (22.0-30.0) sec BUN 64 H (7-17) mg/dL Creatinine 1.59 H (0.52-1.04) mg/dL Glucose 223 H (74-99) mg/dL POC Glucose (mg/dL) (75-99) mg/dL Calcium 7.9 L (8.4-10.2) mg/dL Total Protein 5.9 L (6.3-8.2) g/dL Albumin 2.7 L (3.5-5.0) g/dL Assessment and Plan Assessment: elevated troponin secondary to hypoxia and supplying demand mismatch Hypertension Possible episode of self eliminating atrial fibrillation Plan: echocardiogram reviewed continue with Cardizem by mouth Continue on telemetry monitoring, Blood pressure well controlled Continue on current cardiac medications Further recommendations based on clinical course The above impression and plan of care have been discussed and directed by the signing physician. Louann Rosario, nurse practitioner, acting as scribe for signing physician.
[2021-10-16 11:18] LABS: Glucose,Whole Blood 144 mg/dL (75-99)
[2021-10-16] MEDS: MONTELUKAST 10 MG TAB PO SCH (11:48)
--- NOTE | 2021-10-16 11:56 | P.PN ---
Subjective Progress Note Date: 10/16/21 This is a morbidly obese 65-year-old female patient with a body mass index of 54. The patient was admitted earlier for shortness of breath and the patient was discharged home on 10/13/2021 to be readmitted within 24 hours following her discharge because of worsening shortness of breath and acute hypoxemic respiratory failure. I had the chance to evaluate this patient another day of her discharge. At that time, the patient reported improvement in her shortness of breath. I came to find other the patient has underlying lung cancer under the care of Dr. Maria and the patient has received a combination of chemoradiation therapy in the past and she also has a remote history of DVT and pulmonary embolism noted on anticoagulation and she was receiving Lovenox therapeutic dose during her last hospital stay. The patient had a negative, COVID 19 testing in a negative influenza testing. The patient during her hospital stay and was treated with IV Rocephin. She was given IV Solu Medrol switched to prednisone burst taper. She was given Lasix and she was switched to oral Lasix 20 mg by mouth twice a day at time of discharge. The chest x-ray was showing significant opacification of the left lung and ultrasound the chest showed minimal amount of pleural fluid that was not amenable for thoracentesis. Echo of the heart showed a normal ejection fraction of 55-60% and the patient was found to have mild to moderate mitral regurgitation. Her pro-calcitonin level during her last admission was at 4.09. The patient came into the emergency department having difficulties breathing. She was hypoxic and on 6 L of O2 her pulse ox was 83%. She was placed on high flow oxygen and her saturation gradually improved. Because of increased work of breathing, subsequent was switched to a BiPAP. She was in A. fib RVR and she converses. The chest x-ray showed bilateral pulmonary infiltrates and following that the CAT scan of the chest was done that showed no evidence of any pulmonary embolism. There is a left upper lobe mass and there is also bilateral airspace disease/consolidation and the consolidation because much more dense and there is breath diseases dense in the left upper lobe which could be a underlying malignancy. At the same time, there was suspected hilar adenopathy more so on the right. The tracheobronchial tree was patent. There was some indeterminate pulmonary nodules consistent with metastatic disease and there was some underlying splenomegaly. The patient's white cell count remains elevated at 16.2 with a hemoglobin of 10.8, platelet count was 115 during this current admission, the BM was at 56 with a creatinine of 1.47 and the sodium level of 139, proBNP level was 3850 and the troponin level was at 0.141, normal LFTs, calcium level was 8.0, lactic acid level was at 2.8. The patient was started again on DuoNeb nebulized treatments around the clock, IV Solu-Medrol, and she was given Levaquin. In terms of lung cancer, the patient was diagnosed having a left lung mass measuring CT chest 08/12/17 revealed 1.5x1.7cm left hilar lesion, on 08/21/2017 PET showed enlarging left lung nodule (compared to PET scan in 2014) with intermediate uptake. Repeat CT chest 11/17/18 revealed revealed 1.8x2.6cm mass in left which increased in size compared to prior CT scan. Brain MRI 11/17/18, done for dizzyness, was negative for metastatic disease. 11/23/18 she had a bronchoscopy, transbronchial biopsy of left lower lobe, atypical cells suggestive of low grade pulmonary adenocarcinoma. Repeat CT 12/10/18 revealed 2.9cm LLL mass. She was evaluated by Throracic surgeon and was felt not to be a surgical candiate due to her co-morbidities and ended up having SBRT. She continued to follow up with Dr. Swann after radiation. PET 05/10 revealed suspicious uptake and increasing size of left hilar node and new small right lung nodules. She was referred back to Oncology 08/20/20. Repeat PET 09/03/20 revealed increasing size of previously irradiated area, SUV remained stable at 9, no additional suspicious finding. Bronchoscopy, biopsy was suspicious for atypical cells. It was decided by Rad/Onc to wait and repeat PET. 12/10/20 repeat PET revealed suspicious SUV in left hilar region with more solid component, representing local recurrence. A left breast lesion was evaluated by Dr. Swann with mammograms and U/S which came back negative. 01/06/21 she started concurrent weekly taxol/carboplatin with radiation completed on 02/17/21. 04/29/21 repeat PET scan revealed stable findings. It was decided not to proceed with immunotherapy due to connective tissue disease. She has Sjogrens disease, on hydroxychloroquine. She is lupus anticoagulant positive, was on warfarin, now on therapeutic dose of lovenox for the same. Note that her clinical business manager is Dr. Quick. On today's evaluation of 10/15/2021, seeing the patient for a follow-up. The patient is feeling slightly better compared to yesterday. The patient was on BiPAP throughout the night the pressure of 12/60 cm of water and FiO2 of 50%. This morning, she was taken off the BiPAP and the patient was placed on 14 L of O2 nasal cannula and she is being gradually weaned off. She is able to maintain a saturation above 88%. She is afebrile. She is hemodynamically stable. She was subjected to a combination of antibiotics and the patient was given a combination of Levaquin and cefepime. The patient's pro-calcitonin level was 0.34. The repeat chest x-ray from today still showing diffuse but the pulmonary infiltrates with probably some improvement in infiltrates on the right and the left lung base. Noted the patient was also being diuresis with IV Lasix. The patient's overall fluid balance is -3.6 L over the past 12 hours and the patient is headed towards more diuresis over the next 24 hours. The patient is also on IV Solu-Medrol. I was able to retrieve an old computed tomography scan of the chest that was done at [facility] from October 2020. At that time, the patient had a left upper lobe mass and several nodular densities in the left upper lobe and the right lung consistent with metastatic disease. Nevertheless, the right lung was fairly of any acute pulmonary infiltration. Note that the mass in the left upper lobe has grown in size in comparison. As such, there is obvious concern for progression of her underlying non-small cell lung cancer. She remains on IV heparin and the patient has had some troponin leaks. The patient will be taken off the IV heparin and the patient will be switched back to Lovenox as a long-term anticoagulants. 10/16/2021, the patient is doing better. The patient's been weaned down to 10 L of O2 nasal cannula. The chest x-ray shows some interval improvement in aeration and the patient continued to diurese adequately with IV Lasix 40 mg every 8 hours. The patient is in a negative fluid balance of 3.5 L over the pa st 24 hours. Meanwhile, the patient renal function continues to be stable with a BUN of 64 and a creatinine of 1.59 and the sodium level is at 139. The patient remains on IV cefepime and Levaquin 5 mg every 48 hours. The patient remains on Lovenox 1 mg subcu every 24 hours. The patient is also on IV Solu Medrol 60 mg IV push every 6 hours. No new complaints. Lower extremity edema is improving. No chest pain. No pleurisy. No hemoptysis. No other significant events over the past 24 hours. The patient is responding to the above-mentioned treatment for now. Objective - Vital Signs Vital signs: Vital Signs Temp 97.5 F L 10/16/21 08:00 Pulse 69 10/16/21 11:00 Resp 17 10/16/21 11:00 BP 109/64 10/16/21 11:00 Pulse Ox 91 L 10/16/21 11:00 Intake & Output 10/15/21 10/16/21 10/16/21 18:59 06:59 18:59 Intake Total 160 635 85 Output Total 1945 2425 1125 Balance -1785 -1790 -1040 Weight 140 kg Intake: IV 60 55 85 0.9NS 60 55 85 Intake, IV Titration 100 100 Amount Cefepime 2 gm In Sodium 100 100 Chloride 0.9% 100 ml @ 25 mls/hr IVPB Q12HR [facility] Rx #:[id number] Oral 480 Output: Urine 1944 2425 1125 Other: Voiding Method Indwelling Catheter Indwelling Catheter - Exam GENERAL EXAM: Alert , still having some shortness of breath, particularly on a BiPAP at a pressure of 10 liters O2 nasal cannula. The patient is morbidly obese. Breathing is less labored compared to yesterday. Able to communicate. This is in the patient's breathing is nonlabored and there is no use of accessory muscles of breathing. HEAD: Normocephalic. EYES: Normal reaction of pupils, equal size. NOSE: Clear with pink turbinates. THROAT: No erythema or exudates. NECK: No masses, no JVD. CHEST: No chest wall deformity. LUNGS: Equal air entry with few scattered rhonchi more so on the left. CVS: S1 and S2 normal with no audible murmur, regular rhythm. ABDOMEN: No hepatosplenomegaly, normal bowel sounds, no guarding or rigidity. SPINE: No scoliosis or deformity SKIN: No rashes CENTRAL NERVOUS SYSTEM: No focal deficits, tone is normal in all 4 extremities. EXTREMITIES: There is increased bilateral peripheral edema. No clubbing, no cyanosis. Peripheral pulses are intact. - Labs CBC & Chem 7: 10/16/21 07:35 10/16/21 07:35 Labs: Abnormal Lab Results - Last 24 Hours (Table) 10/15/21 10/15/21 10/15/21 Range/Units 11:53 16:50 20:49 WBC (3.8-10.6) k/uL RBC (3.80-5.40) m/uL Hgb (11.4-16.0) gm/dL Hct (34.0-46.0) % Plt Count (150-450) k/uL Neutrophils # (1.3-7.7) k/uL Lymphocytes # (1.0-4.8) k/uL APTT (22.0-30.0) sec BUN (7-17) mg/dL Creatinine (0.52-1.04) mg/dL Glucose (74-99) mg/dL POC Glucose (mg/dL) 148 H 201 H 278 H (75-99) mg/dL Calcium (8.4-10.2) mg/dL Total Protein (6.3-8.2) g/dL Albumin (3.5-5.0) g/dL 10/16/21 10/16/21 10/16/21 Range/Units 06:25 07:35 07:35 WBC 20.0 H (3.8-10.6) k/uL RBC 3.58 L (3.80-5.40) m/uL Hgb 10.1 L (11.4-16.0) gm/dL Hct 32.7 L (34.0-46.0) % Plt Count 113 L (150-450) k/uL Neutrophils # 19.1 H (1.3-7.7) k/uL Lymphocytes # 0.4 L (1.0-4.8) k/uL APTT 40.6 H (22.0-30.0) sec BUN (7-17) mg/dL Creatinine (0.52-1.04) mg/dL Glucose (74-99) mg/dL POC Glucose (mg/dL) 183 H (75-99) mg/dL Calcium (8.4-10.2) mg/dL Total Protein (6.3-8.2) g/dL Albumin (3.5-5.0) g/dL 10/16/21 10/16/21 Range/Units 07:35 11:17 WBC (3.8-10.6) k/uL RBC (3.80-5.40) m/uL Hgb (11.4-16.0) gm/dL Hct (34.0-46.0) % Plt Count (150-450) k/uL Neutrophils # (1.3-7.7) k/uL Lymphocytes # (1.0-4.8) k/uL APTT (22.0-30.0) sec BUN 64 H (7-17) mg/dL Creatinine 1.59 H (0.52-1.04) mg/dL Glucose 223 H (74-99) mg/dL POC Glucose (mg/dL) 144 H (75-99) mg/dL Calcium 7.9 L (8.4-10.2) mg/dL Total Protein 5.9 L (6.3-8.2) g/dL Albumin 2.7 L (3.5-5.0) g/dL Assessment and Plan Plan: Acute on chronic hypoxemic respiratory failure with development of diffuse breath and pulmonary infiltrates/with an area of masslike consolidation in the left upper lobe which could be an area of malignancy as the patient is known to have non-small cell lung cancer/adenocarcinoma of the left lung. The patient is also receiving radiation therapy to that area in the past. Noted the patient was recently in the hospital treated for pneumonia and discharged home to present back within 24 hours with worsening shortness of breath and hypoxemia. CAT scan of the chest was done and reveals a masslike consolidation of left upper lobe in addition to diffuse breath and airspace disease which may be infectious versus malignant in nature with progression of her underlying lung cancer. . The patient had a previous CAT scan of the chest from October 2020 and in comparison, the left upper lobe masses increased in size over the past 1 year. Nevertheless, the diffuse airspace disease seen bilaterally in the right lung and the left lower lobe is of a new onset. Rule out superinfection. Rule out tumor progression. Rule out interstitial edema. The patient is responding to the above-mentioned treatment for now. The patient has been weaned down to 10 L of oxygen by nasal cannula and the patient continues to diurese and the patient remains in a negative fluid balance. Repeat chest x-ray shows improvement in aeration in the volume status. There is still a dense consolidation in the left upper lobe area. Paroxysmal atrial fibrillation with RVR at time of admission, current rhythm is sinus COPD Chronic and ongoing tobacco dependence. History of lung cancer, likely a stage IV adenocarcinoma, status post chemoradiation, completed, February 2021. The patient was diagnosed with lung cancer 2017. Please refer to the details as mentioned above regarding the patient's history of non-small cell lung cancer which is probably an adenocarcin ernie. History of protein C&S deficiency. History of DVT/pulmonary embolism. Hyperlipidemia. Hypothyroidism. History of seizure disorder. History of depression. Chronic kidney disease, creatinine stable for now Troponin leak, nonspecific, Plan Keep this patient to the ICU Continue BiPAP for respiratory support, as needed and overnight Continue bronchodilators Continue IV Solu-Medrol, wean down the dose down to 40 mg every 12 hours Continue BiPAP for respiratory support pro-calcitonin level is mildly elevated Continue IV Lasix at a dose of 40 mg every 8 hours and monitor the fluid balance and electrolytes Continue combination of Zosyn and Levaquin 750 mg every 48 hours Continue Lovenox 200 mg subcu on a daily basis Reviewed the old computed tomography scan of the chest and there is obvious concern for disease progression We'll give the patient another 24 hours here in the ICU for further optimization and diuresis and antibiotic treatment. At the pulmonary infiltrates remain u nchanged, she may need a bronchoscopy and biopsy. I do not see the need for biopsy at this point especially the patient is showing signs of improvement. The chest x-ray showing improvement in the infiltration especially the one on the right. The patient will have a follow-up chest x-ray tomorrow. We'll continue to follow We'll continue to follow make further recommendations based on her progress.
--- NOTE | 2021-10-16 13:32 | P.PN ---
Subjective Progress Note Date: 10/16/21 Principal diagnosis: hypoxia She is improving, stil in care of ICU. Planning for stabilization and plan for rehabilitation after discharge to increase strength Objective - Vital Signs Vital signs: Vital Signs Temp 98.2 F 10/16/21 12:00 Pulse 71 10/16/21 12:00 Resp 20 10/16/21 12:00 BP 101/58 10/16/21 12:00 Pulse Ox 93 L 10/16/21 12:00 Intake & Output 10/15/21 10/16/21 10/16/21 18:59 06:59 18:59 Intake Total 160 635 85 Output Total 1945 2425 1125 Balance -1785 -1790 -1040 Weight 140 kg Intake: IV 60 55 85 0.9NS 60 55 85 Intake, IV Titration 100 100 Amount Cefepime 2 gm In Sodium 100 100 Chloride 0.9% 100 ml @ 25 mls/hr IVPB Q12HR [facility] Rx #:[id number] Oral 480 Output: Urine 1944 2424 112 Other: Voiding Method Indwelling Catheter Indwelling Catheter - Exam - Constitutional General appearance: cooperative, mild distress, obese - EENT Eyes: anicteric sclerae, EOMI ENT: hearing grossly normal, normal oropharynx - Neck Neck: no lymphadenopathy - Respiratory Respiratory: Increased effort and hypoxic right: diminished, left: rhonchi, wheezing - Cardiovascular Rhythm: irregularly irregular Peripheral Edema: bilateral: None - Gastrointestinal General gastrointestinal: no absent bowel sounds, no decreased bowel sounds, no distended, no hepatomegaly, no hyperactive bowel sounds, normal bowel sounds, no organomegaly, no rigid, no scaphoid, soft, no splenomegaly, no tenderness, no umbilical hernia, no ventral hernia - Integumentary Integumentary: normal - Neurologic Neurologic: CNII-XII intact - Musculoskeletal Musculoskeletal: generalized weakness, strength equal bilaterally - Psychiatric Psychiatric: A&O x's 3, appropriate affect, intact judgment & insight - Labs CBC & Chem 7: 10/16/21 07:35 10/16/21 07:35 Labs: Abnormal Lab Results - Last 24 Hours (Table) 10/15/21 10/15/21 10/16/21 Range/Units 16:50 20:49 06:25 WBC (3.8-10.6) k/uL RBC (3.80-5.40) m/uL Hgb (11.4-16.0) gm/dL Hct (34.0-46.0) % Plt Count (150-450) k/uL Neutrophils # (1.3-7.7) k/uL Lymphocytes # (1.0-4.8) k/uL APTT (22.0-30.0) sec BUN (7-17) mg/dL Creatinine (0.52-1.04) mg/dL Glucose (74-99) mg/dL POC Glucose (mg/dL) 201 H 278 H 183 H (75-99) mg/dL Calcium (8.4-10.2) mg/dL Total Protein (6.3-8.2) g/dL Albumin (3.5-5.0) g/dL 10/16/21 10/16/21 10/16/21 Range/Units 07:35 07:35 07:35 WBC 20.0 H (3.8-10.6) k/uL RBC 3.58 L (3.80-5.40) m/uL Hgb 10.1 L (11.4-16.0) gm/dL Hct 32.7 L (34.0-46.0) % Plt Count 113 L (150-450) k/uL Neutrophils # 19.1 H (1.3-7.7) k/uL Lymphocytes # 0.4 L (1.0-4.8) k/uL APTT 40.6 H (22.0-30.0) sec BUN 64 H (7-17) mg/dL Creatinine 1.59 H (0.52-1.04) mg/dL Glucose 223 H (74-99) mg/dL POC Glucose (mg/dL) (75-99) mg/dL Calcium 7.9 L (8.4-10.2) mg/dL Total Protein 5.9 L (6.3-8.2) g/dL Albumin 2.7 L (3.5-5.0) g/dL 10/16/21 Range/Units 11:17 WBC (3.8-10.6) k/uL RBC (3.80-5.40) m/uL Hgb (11.4-16.0) gm/dL Hct (34.0-46.0) % Plt Count (150-450) k/uL Neutrophils # (1.3-7.7) k/uL Lymphocytes # (1.0-4.8) k/uL APTT (22.0-30.0) sec BUN (7-17) mg/dL Creatinine (0.52-1.04) mg/dL Glucose (74-99) mg/dL POC Glucose (mg/dL) 144 H (75-99) mg/dL Calcium (8.4-10.2) mg/dL Total Protein (6.3-8.2) g/dL Albumin (3.5-5.0) g/dL Assessment and Plan (1) Respiratory failure Narrative/Plan: Improving High FLow In care of ICU managed by pulmonary Current Visit: Yes Status: Acute Code(s): J96.90 - RESPIRATORY FAILURE, UNSP, UNSP W HYPOXIA OR HYPERCAPNIA SNOMED Code(s): 919815762 (2) Acute respiratory distress Current Visit: Yes Status: Acute Priority: High Code(s): R06.03 - ACUTE RESPIRATORY DISTRESS SNOMED Code(s): 478915267 (3) Hypoxia Current Visit: Yes Status: Acute Code(s): R09.02 - HYPOXEMIA SNOMED Cod e(s): 140768779 (4) Lung cancer Narrative/Plan: No active treatment plan at this time, will need to recover. Current Visit: Yes Status: Acute Priority: High Code(s): C34.90 - MALIGNANT NEOPLASM OF UNSP PART OF UNSP BRONCHUS OR LUNG SNOMED Code(s): 442906608 (5) Bicytopenia Current Visit: No Status: Acute Priority: High Code(s): D75.89 - OTHER SPECIFIED DISEASES OF BLOOD AND BLOOD-FORMING ORGANS SNOMED Code(s): 16247450 Plan: Continue care per pulmonary and ICU. Await recovery. Hold all treatments in oncologic care prior to recovery of acute situation. Dr. Colón: I have completed the full history and physical, developed the above impression and plan and agree with dictation, dictated as a scribe.
--- NOTE | 2021-10-16 15:43 | P.PN ---
Subjective Progress Note Date: 10/16/21 HISTORY OF PRESENT ILLNESS 56 year-old morbidly obese female one of Dr. 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 fib, patient also known to have non-small cell see of the lung has been on chemotherapy postradiation, she had DVT and PE as well history of obstructive sleep apnea and recurrent TIA who was hospitalized in October 06 till October 14 for severe dyspnea and shortness of breath and respiratory failure was seen cardiology and pulmonary along with oncology treated for sepsis with left-sided pneumonia along with acute hypoxic respiratory failure was initially on BiPAP and transferred to Ventimask and then nasal cannula. Patient was on steroids along with antibiotics and updraft treatment regular basis all along until the day of discharge. Patient presented to the emergency department by EMS with worsening dyspnea and respiratory failure found to have severe hypoxia require BiPAP was started on IV steroids along with updraft treatment seen pulmonary quickly in the emergency department. With a high risk of pulmonary embolism patient had A. fib patient was started on heparin drip her chest x-ray showed bilateral pulmonary infiltrate CAT scan showed no evidence of any pulmonary embolism at the time but showed left upper lobe mass is also bilaterallydisease in consultation consistent with pneumonia beside her underlying malignancy and probably obstructive pneumonitis. Patient also had some hilar adenopathy of the right side the tracheobronchial tree was patent white blood cell was 16,000 hemoglobin 10.8 creatinine was 1.47 BNP was 3815 with troponin mildly elevated at 0.141, also lactic acid was 2.8 at the time. Patient was started on DuoNeb, Solu-Medr ol and giving Levaquin. Patient was hospitalized with acute hypoxic respiratory failure with significant failure and less than 24 hours before discharge. Patient be admitted will be seen cardiology as well because of elevated troponin and A. fib. 10/15: Patient is seen today in the intensive care unit. She is off BiPAP and on high flow nasal cannula at 14 L with pulse ox 90%. She has been seen by pulmonary medicine and also cardiology. Elevated troponin secondary to hypoxia. Echocardiogram has been ordered. Repeat blood work reveals WBC 14.5, hemoglobin 9.5, platelet count 94. Electrolytes normal. BUN 54 and creatinine 1.62. Capillary blood glucose running between 148 and 156. Repeat chest x-ray reveals diffuse right lung infiltrates and left basilar infiltrates with left midlung mass or masslike consolidation are demonstrated. No significant change from one day earlier. Heparin drip has been discontinued. Patient is currently on IV antibiotics the form of cefepime and Levaquin. Consult added for oncology. 10/16: Patient is seen today in the intensive care unit with plan to maintain another 24 hours here. Patient states that she is feeling much better today.she is on 10 L of oxygen by nasal cannula but feels her breathing is much improved. Pulse ox is 93%. She's been afebrile, heart rate in the 60s to 80s, blood pressure 101/58. Repeat blood work reveals WBC 20, hemoglobin 10.1, platelet count 113. Electrolytes normal. BUN 64 creatinine 1.59. Capillary blood glucose running between 144 and 278. Chest x-ray reveals diffuse right lung infiltrates and left basilar infiltrates with left midlung mass or masslike consolidation all redemonstrated. No significant change. REVIEW OF SYSTEMS Constitutional: Mildly overweight, on BiPAP look in mild respiratory distress and had been severely dyspneic. EENT: No headache. No blurred vision or double vision, no loss of vision. No loss of Hearing, no ringing in the ears, no dizziness. No nasal drainage or congestion. No epistaxis. No sore throat. Lungs: Significant shortness of breath with extreme wheezes. Cardiovascular: No chest pain, no lower extremity edema. No palpitations. No paroxysmal nocturnal dyspnea. No orthopnea. No lightheadedness or dizziness. No syncopal episodes. Abdominal: No abdominal pain. No nausea, vomiting. No diarrhea. No constipation. No bloody or tarry stools.. No loss of appetite. Genitourinary: No dysuria, increased frequency, urgency. No urinary retention- Mccann in place. Musculoskeletal: Generalized myalgia and arthralgia with abnormal balance and gait slight weakness in the right side. Integumentary: No wounds, no lesions. No rash or pruritus. No unusual bruising. No change in hair or nails. Neurologic: Positive weakness of the right side along with speech problem and aphasia without dysphagia currently Psychiatric: No depression. No anxiety. No mood swings. Endocrine: No abnormal blood sugars. No weight change. No excessive sweating or thirst. No cold intolerance. PHYSICAL EXAMINATION Gen: This is a morbidly obese 56-year-old female. She is resting in the ICU bed and appears to be fairly comfortable.. HEENT: Head is atraumatic, normocephalic. Pupils equal, round. Sclerae is anicteric. NECK: Supple. No JVD. No lymphadenopathy. No thyromegaly. LUNGS: Decreased breath some today with significant rhonchi mild crackles in the bases positive mild inspiratory expiratory wheezes. HEART: Regular rate and rhythm. ABDOMEN: Soft. Bowel sounds are present. No masses. No tenderness. EXTREMITIES: Trace edema decreased pulse bilaterally mild osteoarthritis both knees NEUROLOGICAL: Patient is awake, alert and oriented x3. Cranial nerves 2 through 12 are grossly intact. ASSESSMENT AND PLAN 1 acute on chronic hypoxic respiratory failure with diffuse infiltrate with left upper lobe pneumonia with possible obstructive pneumonitis with the large mass in the left upper lobe. Patient be covered for gram-negative pneumonia with cefepime and Levaquin as well the meanwhile continue oxygen therapy currently on high flow nasal cannula, pulmonary consultation, continue Solu-Medrol along with DuoNeb patient will be admitted to the ICU at this point and maintain for another 24 hours. Lasix 40 mg IV every 8 hours. 2 COPD exacerbation: Most likely caused by the obstructive pneumonia along with a severe hypoxia at this point, patient will benefit from DuoNeb along with Pulmicort continue steroid IV. 3 consolidation and obstructive pneumonia: Most likely caused by the compression of her left upper lobe lung mass, patient be covered with gram-negative was started on Levaquin might benefit from adding Zosyn at this point specially with her elevated white let cell along with elevated lactic acid. 4 early sepsis: Most likely caused by pneumonia, blood culture was done patient be on IV antibiotics for now. 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 Consult added for oncology. 6 Atrial fibrillation with rapid ventricular response, heparin drip discontinued, cardiology consult appreciated, continue diltiazem CD 180 mg daily, echocardiogram. 7 elevated troponin with possible non-ST LA ruled out, this could be hypo perfusion. Acute coronary syndrome ruled out. 8 coagulopathy with DVT and pulmonary embolism, patient doing Lovenox 200 mg subcutaneous daily. 9 acute kidney injury with chronic kidney disease, continue gentle hydration repeat CMP and next 24 hours. 10 history of seizure: Has been on Keppra 750 mg twice a day resume medication. 11 hypothyroidism: Continue levothyroxine 25 g daily. 12 hyperlipidemia: Remain on atorvastatin 40 mg a day we'll resume medication. 13 chronic neuropathy: Most likely peripheral neuropathy might be chemotherapy related, remain on gabapentin 300 mg daily at bedtime. 14 severe GERD/GI prophylaxis: Patient remain on pantoprazole 20 mg daily. 15 chronic pain syndrome: Remain on hydrocodone 10/325 mg 3 times a day. 16 DVT prophylaxis: Patient currently being treated with active anticoagulation with Lovenox subcutaneous. 17. COVID-19 testing was negative. CODE STATUS: Full code. Impression and plan of care have been directed as dictated by the signing physician. Rukhsana Og nurse practitioner acting as scribe for signing physician. Objective - Vital Signs Vital signs: Vital Signs Temp 97.9 F 10/16/21 04:00 Pulse 64 10/16/21 08:43 Resp 18 10/16/21 08:43 BP 115/67 10/16/21 07:00 Pulse Ox 93 L 10/16/21 08:29 Intake & Output 10/15/21 10/16/21 10/16/21 18:59 06:59 18:59 Intake Total 160 635 5 Output Total 1945 2425 200 Balance -1785 -1790 -195 Weight 140 kg Intake: IV 60 55 5 0.9NS 60 55 5 Intake, IV Titration 100 100 Amount Cefepime 2 gm In Sodium 100 100 Chloride 0.9% 100 ml @ 25 mls/hr IVPB Q12HR [facility] Rx #:[id number] Oral 480 Output: Urine 1945 2425 200 Other: Voiding Method Indwelling Catheter Indwelling Catheter - Labs CBC & Chem 7: 10/16/21 07:35 10/16/21 07:35 Labs: Abnormal Lab Results - Last 24 Hours (Table) 10/15/21 10/15/21 10/15/21 Range/Units 11:53 16:50 20:49 WBC (3.8-10.6) k/uL RBC (3.80-5.40) m/uL Hgb (11.4-16.0) gm/dL Hct (34.0-46.0) % Plt Count (150-450) k/uL Neutrophils # (1.3-7.7) k/uL Lymphocytes # (1.0-4.8) k/uL APTT (22.0-30.0) sec BUN (7-17) mg/dL Creatinine (0.52-1.04) mg/dL Glucose (74-99) mg/dL POC Glucose (mg/dL) 148 H 201 H 278 H (75-99) mg/dL Calcium (8.4-10.2) mg/dL Total Protein (6.3-8.2) g/dL Albumin (3.5-5.0) g/dL 10/16/21 10/16/21 10/16/21 Range/Units 06:25 07:35 07:35 WBC 20.0 H (3.8-10.6) k/uL RBC 3.58 L (3.80-5.40) m/uL Hgb 10.1 L (11.4-16.0) gm/dL Hct 32.7 L (34.0-46.0) % Plt Count 113 L (150-450) k/uL Neutrophils # 19.1 H (1.3-7.7) k/uL Lymphocytes # 0.4 L (1.0-4.8) k/uL APTT 40.6 H (22.0-30.0) sec BUN (7-17) mg/dL Creatinine (0.52-1.04) mg/dL Glucose (74-99) mg/dL POC Glucose (mg/dL) 183 H (75-99) mg/dL Calcium (8.4-10.2) mg/dL Total Protein (6.3-8.2) g/dL Albumin (3.5-5.0) g/dL 10/16/21 Range/Units 07:35 WBC (3.8-10.6) k/uL RBC (3.80-5.40) m/uL Hgb (11.4-16.0) gm/dL Hct (34.0-46.0) % Plt Count (150-450) k/uL Neutrophils # (1.3-7.7) k/uL Lymphocytes # (1.0-4.8) k/uL APTT (22.0-30.0) sec BUN 64 H (7-17) mg/dL Creatinine 1.59 H (0.52-1.04) mg/dL Glucose 223 H (74-99) mg/dL POC Glucose (mg/dL) (75-99) mg/dL Calcium 7.9 L (8.4-10.2) mg/dL Total Protein 5.9 L (6.3-8.2) g/dL Albumin 2.7 L (3.5-5.0) g/dL
[2021-10-16 16:35] LABS: Glucose,Whole Blood 142 mg/dL (75-99)
[2021-10-16 19:56] LABS: Glucose,Whole Blood 274 mg/dL (75-99)
[2021-10-16] MEDS: GABAPENTIN 300 MG CAP PO SCH (20:02)
[2021-10-16] MEDS: ASPIRIN 325 MG TAB PO SCH (20:02)
[2021-10-16] MEDS: PANTOPRAZOLE SODIUM 40 MG GRANULE PKT PO SCH (20:02)
[2021-10-16] MEDS: methylPREDNISolone SOD SUCCI 40 MG/ML 1 ML VIAL IV SCH (20:03)
[2021-10-17] MEDS: FUROSEMIDE 10 MG/ML 4 ML VIAL IV SCH ×3 (02:11→20:49)
[2021-10-17] MEDS: SODIUM CHLORIDE 0.9% 1,000 ML IV SCH (02:12)
[2021-10-17 04:45] LABS: HCT 30.8 % (34.0-46.0); HGB 9.4 gm/dL (11.4-16.0); MCH 27.6 pg (25.0-35.0); MCHC 30.5 g/dL (31.0-37.0); MCV 90.7 fL (80.0-100.0); Mean Platelet Volume 8.7; Platelet Count 104 k/uL (150-450); RDW 15.1 % (11.5-15.5); WBC 15.3 k/uL (3.8-10.6)
[2021-10-17 05:15] LABS: Albumin 2.6 g/dL (3.5-5.0); Calcium 7.7 mg/dL (8.4-10.2); Total Bilirubin 0.5 mg/dL (0.2-1.3); Total Protein 5.6 g/dL (6.3-8.2)
[2021-10-17 06:24] LABS: Glucose,Whole Blood 153 mg/dL (75-99)
[2021-10-17] MEDS: INSULIN ASPART (NovoLOG) 100 UNIT/ML VIAL SQ SCH ×4 (06:26→20:50)
[2021-10-17] MEDS: FOLIC ACID-VIT B COMPLEX-VIT C 1 CAP PO SCH (06:26)
[2021-10-17] MEDS: CITALOPRAM HYDROBROMIDE 20 MG TAB PO SCH (06:26)
[2021-10-17] MEDS: ATORVASTATIN 40 MG TAB PO SCH (06:26)
[2021-10-17] MEDS: LEVOTHYROXINE 25 MCG TAB PO SCH (06:26)
[2021-10-17] MEDS: SYMBICORT 160-4.5 MCG INHALER INHALATION SCH (08:07)
[2021-10-17] MEDS: IPRATROPIUM-ALBUTEROL 3 ML NEB INHALATION SCH ×4 (08:07→20:15)
--- NOTE | 2021-10-17 08:37 | XR ---
EXAMINATION TYPE: XR chest 1V portable DATE OF EXAM: 10/17/2021 CLINICAL HISTORY: Difficulty breathing progress study. TECHNIQUE: Single AP portable upright view of the chest is obtained. COMPARISON: Chest x-ray from one day earlier and older studies. FINDINGS: Right lung diffuse reticular increased opacity redemonstrated. There is more dense masslik e consolidation left mid lung redemonstrated. Left basilar opacity is again seen. Cardiac silhouette size stable and within normal limits. Osseous structures are intact. IMPRESSION: Diffuse right lung infiltrates and left basilar infiltrates and/or scarring with left mid lung mass or masslike consolidation all redemonstrated. No significant change from one day earlier. Correlate clinically. Consider bronchoscopy evaluation.
[2021-10-17] MEDS ORDERED: MAGNESIUM HYDROXIDE 2,400 MG/10 ML CUP PO PRN (08:45)
[2021-10-17] MEDS: NICOTINE 14MG/24HR PATCH TRANSDERM SCH (09:43)
[2021-10-17] MEDS: ENOXAPARIN 100 MG/ML SYRINGE SQ SCH (09:43)
[2021-10-17] MEDS: SENNOSIDES-DOCUSATE SODIUM 1 EACH TAB PO SCH (09:43)
[2021-10-17] MEDS: DILTIAZEM CD 180 MG CAP.ER.24H PO SCH (09:43)
[2021-10-17] MEDS: BACLOFEN 10 MG TAB PO SCH ×2 (09:44→20:50)
[2021-10-17] MEDS: HYDROcodone/APAP 10-325MG 1 EACH TAB PO PRN ×2 (09:44→23:20)
--- NOTE | 2021-10-17 09:46 | P.PN ---
Subjective Progress Note Date: 10/17/21 56-year-old lady with history of carcinoma of the lung presented to hospital with hypoxia shortness of breath and respiratory distress. While in the ER she apparently had episode of atrial fibrillation that was transient and self- limited. there is no EKG or rhythm strips of this episode. She remains in normal sinus rhythm and has not had any reports episodes of atrial fib or ectopy. She is seen today in ICU sitting in bed resting comfortably in no signs of acute distress. Will decrease IV Lasix to 40 mg every 12. BUN 75 creatinine is 1.64 She is tolerating weaning down on her oxygen, she is currently on 8 L nasal cannula. She states sheis feeling much bettter. She denies chest pain or shortn ess of breath today. Blood pressure remains well-controlled, heart rate is controlled. Objective - Vital Signs Vital signs: Vital Signs Temp 98.0 F 10/17/21 08:00 Pulse 68 10/17/21 08:19 Resp 22 10/17/21 08:19 BP 117/63 10/17/21 08:00 Pulse Ox 98 10/17/21 08:07 Intake & Output 10/16/21 10/17/21 10/17/21 18:59 06:59 18:59 Intake Total 245 220 30 Output Total 2610 1575 65 Balance -8545 -3725 -35 Weight 135.6 kg Intake: IV 245 220 30 0.9NS 245 220 30 Output: Urine 2610 1575 65 Other: Voiding Method Indwelling Catheter Indwelling Catheter Indwelling Catheter - Exam PHYSICAL EXAM: VITAL SIGNS: Reviewed. GENERAL: Well-developed in no acute distress. HEENT: Head is normocephalic. Pupils are equal, round. Sclerae anicteric. Mucous membranes of the mouth are moist. NECK: Supple. No JVD or thyromegaly RESPIRATORY: Respirations even and unlabored. Lungs diminished to auscultation bilaterally.patient remains on 8 L high flow CARDIO: Regular rate and rhythm. S1 and S2 heard. No murmur or gallops. EXTREMITIES: Normal range of motion. No clubbing or cyanosis. Peripheral pulses intact. mild bilateral lower extremity edema NEURO: Orientated to person, time, mood is appropriate - Labs CBC & Chem 7: 10/17/21 04:14 10/17/21 04:14 Labs: Abnormal Lab Results - Last 24 Hours (Table) 10/16/21 10/16/21 10/16/21 Range/Units 11:17 16:32 19:54 WBC (3.8-10.6) k/uL RBC (3.80-5.40) m/uL Hgb (11.4-16.0) gm/dL Hct (34.0-46.0) % MCHC (31.0-37.0) g/dL Plt Count (150-450) k/uL Sodium (137-145) mmol/L BUN (7-17) mg/dL Creatinine (0.52-1.04) mg/dL Glucose (74-99) mg/dL POC Glucose (mg/dL) 144 H 142 H 274 H (75-99) mg/dL Calcium (8.4-10.2) mg/dL Total Protein (6.3-8.2) g/dL Albumin (3.5-5.0) g/dL 10/17/21 10/17/21 10/17/21 Range/Units 04:14 04:14 06:23 WBC 15.3 H (3.8-10.6) k/uL RBC 3.40 L (3.80-5.40) m/uL Hgb 9.4 L (11.4-16.0) gm/dL Hct 30.8 L (34.0-46.0) % MCHC 30.5 L (31.0-37.0) g/dL Plt Count 104 L (150-450) k/uL Sodium 135 L (137-145) mmol/L BUN 75 H (7-17) mg/dL Creatinine 1.64 H (0.52-1.04) mg/dL Glucose 152 H (74-99) mg/dL POC Glucose (mg/dL) 153 H (75-99) mg/dL Calcium 7.7 L (8.4-10.2) mg/dL Total Protein 5.6 L (6.3-8.2) g/dL Albumin 2.6 L (3.5-5.0) g/dL Assessment and Plan Assessment: elevated troponin secondary to hypoxia and supplying demand mismatch Hypertension Possible episode of self eliminating atrial fibrillation Non-arrhythmic moderate mitral valve insufficiency Plan: Decrease IV Lasix to 40 mg every 12 hours continue with Cardizem by mouth Continue on telemetry monitoring, Blood pressure well controlled Continue on current cardiac medications Further recommendations based on clinical course The above impression and plan of care have been discussed and directed by the signing physician. Louann Rosario, nurse practitioner, acting as scribe for signing physician.
[2021-10-17] MEDS: predniSONE 20 MG TAB PO SCH (10:13)
[2021-10-17] MEDS: CEFEPIME 2 GM in SODIUM CHLORIDE 0.9% 100 ML IVPB SCH (10:43)
--- NOTE | 2021-10-17 10:55 | P.PN ---
Subjective Progress Note Date: 10/17/21 HISTORY OF PRESENT ILLNESS 56 year-old morbidly obese female one of Dr. 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 fib, patient also known to have non-small cell see of the lung has been on chemotherapy postradiation, she had DVT and PE as well history of obstructive sleep apnea and recurrent TIA who was hospitalized in October 06 till October 14 for severe dyspnea and shortness of breath and respiratory failure was seen cardiology and pulmonary along with oncology treated for sepsis with left-sided pneumonia along with acute hypoxic respiratory failure was initially on BiPAP and transferred to Ventimask and then nasal cannula. Patient was on steroids along with antibiotics and updraft treatment regular basis all along until the day of discharge. Patient presented to the emergency department by EMS with worsening dyspnea and respiratory failure found to have severe hypoxia require BiPAP was started on IV steroids along with updraft treatment seen pulmonary quickly in the emergency department. With a high risk of pulmonary embolism patient had A. fib patient was started on heparin drip her chest x-ray showed bilateral pulmonary infiltrate CAT scan showed no evidence of any pulmonary embolism at the time but showed left upper lobe mass is also bilaterallydisease in consultation consistent with pneumonia beside her underlying malignancy and probably obstructive pneumonitis. Patient also had some hilar adenopathy of the right side the tracheobronchial tree was patent white blood cell was 16,000 hemoglobin 10.8 creatinine was 1.47 BNP was 3815 with troponin mildly elevated at 0.141, also lactic acid was 2.8 at the time. Patient was started on DuoNeb, Solu-Medr ol and giving Levaquin. Patient was hospitalized with acute hypoxic respiratory failure with significant failure and less than 24 hours before discharge. Patient be admitted will be seen cardiology as well because of elevated troponin and A. fib. 10/15: Patient is seen today in the intensive care unit. She is off BiPAP and on high flow nasal cannula at 14 L with pulse ox 90%. She has been seen by pulmonary medicine and also cardiology. Elevated troponin secondary to hypoxia. Echocardiogram has been ordered. Repeat blood work reveals WBC 14.5, hemoglobin 9.5, platelet count 94. Electrolytes normal. BUN 54 and creatinine 1.62. Capillary blood glucose running between 148 and 156. Repeat chest x-ray reveals diffuse right lung infiltrates and left basilar infiltrates with left midlung mass or masslike consolidation are demonstrated. No significant change from one day earlier. Heparin drip has been discontinued. Patient is currently on IV antibiotics the form of cefepime and Levaquin. Consult added for oncology. 10/16: Patient is seen today in the intensive care unit with plan to maintain another 24 hours here. Patient states that she is feeling much better today.she is on 10 L of oxygen by nasal cannula but feels her breathing is much improved. Pulse ox is 93%. She's been afebrile, heart rate in the 60s to 80s, blood pressure 101/58. Repeat blood work reveals WBC 20, hemoglobin 10.1, platelet count 113. Electrolytes normal. BUN 64 creatinine 1.59. Capillary blood glucose running between 144 and 278. Chest x-ray reveals diffuse right lung infiltrates and left basilar infiltrates with left midlung mass or masslike consolidation all redemonstrated. No significant change. 10/17: Patient remains in the intensive care unit. She is currently on oxygen at 8 L nasal cannula with pulse ox of 98%. She has been afebrile, heart rate in 60s and 70s, respiratory rate 24, blood pressure 117/63. Repeat blood work reveals WBC 15.3, hemoglobin 9.4, platelet count 104. Sodium 135, potassium 4.0, BUN 75, creatinine 1.64. Capillary blood glucose running between 142 and 274. Patient does not have history of diabetes. A1c ordered. Pulmonary medicine has discontinued Levaquin, cefepime, IV Solu-Medrol and transitioned to oral prednisone. Patient is complaining of constipation for which milk of magnesia and prune juice to be given today and stool softener ordered scheduled daily. Patient is also followed by cardiology and IV Lasix decreased to 40 mg every 12 hours continue Cardizem and continue telemetry monitoring. Anticipate patient will be transferred out of the intensive care unit today. Chest x-ray reveals diffuse right lung infiltrates and left basilar infiltrates and/or scarring with left midlung mass or masslike consolidation all redemonst rated. No significant change. Consider bronchoscopy evaluation. REVIEW OF SYSTEMS Constitutional: Mildly overweight, no fever, no chills. EENT: No headache. No blurred vision or double vision, no loss of vision. No loss of Hearing, no ringing in the ears, no dizziness. No nasal drainage or congestion. No epistaxis. No sore throat. Lungs: No shortness of breath mild wheezes. Cardiovascular: No chest pain, no lower extremity edema. No palpitations. No paroxysmal nocturnal dyspnea. No orthopnea. No lightheadedness or dizziness. No syncopal episodes. Abdominal: No abdominal pain. No nausea, vomiting. No diarrhea. No constipation. No bloody or tarry stools.. No loss of appetite. Genitourinary: No dysuria, increased frequency, urgency. No urinary retention- Mccann in place. Musculoskeletal: Generalized myalgia and arthralgia with abnormal balance and gait slight weakness in the right side. Integumentary: No wounds, no lesions. No rash or pruritus. No unusual bruising. No change in hair or nails. Neurologic: Positive weakness of the right side along with speech problem and aphasia without dysphagia currently Psychiatric: No depression. No anxiety. No mood swings. Endocrine: No abnormal blood sugars. No weight change. No excessive sweating or thirst. No cold intolerance. PHYSICAL EXAMINATION Gen: This is a morbidly obese 56-year-old female. She is resting in the ICU bed and appears to be comfortable and in no acute distress HEENT: Head is atraumatic, normocephalic. Pupils equal, round. Sclerae is anicteric. NECK: Supple. No JVD. No lymphadenopathy. No thyromegaly. LUNGS: Decreased breath sounds bilaterally. HEART: Regular rate and rhythm. ABDOMEN: Soft. Bowel sounds are present. No masses. No tenderness. EXTREMITIES: Trace edema decreased pulse bilaterally mild osteoarthritis both knees NEUROLOGICAL: Patient is awake, alert and oriented x3. Cranial nerves 2 through 12 are grossly intact. ASSESSMENT AND PLAN 1 acute on chronic hypoxic respiratory failure with diffuse infiltrate with left upper lobe pneumonia with possible obstructive pneumonitis with the large mass in the left upper lobe. Continue oxygen therapy. Pulmonary has discontinued cefepime, Levaquin and IV Solu-Medrol, started prednisone 40 mg daily, continue DuoNeb treatments 4 times daily and as needed, Symbicort twice daily. 2 COPD exacerbation: Continue Symbicort, DuoNeb treatments scheduled and as needed, sliding Medrol transitioned to oral prednisone.. 3 consolidation and obstructive pneumonia: Pulmonary consult appreciated. IV antibiotics and IV steroids discontinued. 4 early sepsis: Most likely caused by pneumonia, blood culture was done patient be on IV antibiotics for now. 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 Consult with oncology. Cancer treatment is currently on hold. 6 Atrial fibrillation with rapid ventricular response, paroxysmal atrial fibrillation. continue diltiazem CD 180 mg daily, echocardiogram. 7 elevated troponin with possible non-ST FL ruled out, this could be hypoperfusion. Acute coronary syndrome ruled out. 8 coagulopathy with DVT and pulmonary embolism, patient doing Lovenox 200 mg subcutaneous daily. 9 acute kidney injury with chronic kidney disease stage 3. Avoid nephrotoxic agents, monitor renal function. 10 history of seizure: Has been on Keppra 750 mg twice a day resume medication. 11 hypothyroidism: Continue levothyroxine 25 g daily. 12 hyperlipidemia: Remain on atorvastatin 40 mg a day we'll resume medication. 13 chronic neuropathy: Most likely peripheral neuropathy might be chemotherapy related, remain on gabapentin 300 mg daily at bedtime. 14 severe GERD/GI prophylaxis: Patient remain on pantoprazole 20 mg daily. 15 chronic pain syndrome: Remain on hydrocodone 10/325 mg 3 times a day. 16 DVT prophylaxis: Patient currently being treated with active anticoagulation with Lovenox subcutaneous. 17. COVID-19 testing was negative. CODE STATUS: Full code. DISCHARGE PLAN [facility] [place] or [facility] on Wednesday Impression and plan of care have been directed as dictated by the signing physician. Rukhsana Og nurse practitioner acting as scribe for signing physician. Objective - Vital Signs Vital signs: Vital Signs Temp 98.0 F 10/17/21 08:00 Pulse 68 10/17/21 08:19 Resp 22 10/17/21 08:19 BP 117/63 10/17/21 08:00 Pulse Ox 98 10/17/21 08:07 Intake & Output 10/16/21 10/17/21 10/17/21 18:59 06:59 18:59 Intake Total 245 220 30 Output Total 2610 1575 65 Balance -9450 -6365 -35 Weight 135.6 kg Intake: IV 245 220 30 0.9NS 245 220 30 Output: Urine 2610 1575 65 Other: Voiding Method Indwelling Catheter Indwelling Catheter Indwelling Catheter - Labs CBC & Chem 7: 10/17/21 04:14 10/17/21 04:14 Labs: Abnormal Lab Results - Last 24 Hours (Table) 10/16/21 10/16/21 10/16/21 Range/Units 11:17 16:32 19:54 WBC (3.8-10.6) k/uL RBC (3.80-5.40) m/uL Hgb (11.4-16.0) gm/dL Hct (34.0-46.0) % MCHC (31.0-37.0) g/dL Plt Count (150-450) k/uL Sodium (137-145) mmol/L BUN (7-17) mg/dL Creatinine (0.52-1.04) mg/dL Glucose (74-99) mg/dL POC Glucose (mg/dL) 144 H 142 H 274 H (75-99) mg/dL Calcium (8.4-10.2) mg/dL Total Protein (6.3-8.2) g/dL Albumin (3.5-5.0) g/dL 10/17/21 10/17/21 10/17/21 Range/Units 04:14 04:14 06:23 WBC 15.3 H (3.8-10.6) k/uL RBC 3.40 L (3.80-5.40) m/uL Hgb 9.4 L (11.4-16.0) gm/dL Hct 30.8 L (34.0-46.0) % MCHC 30.5 L (31.0-37.0) g/dL Plt Count 104 L (150-450) k/uL Sodium 135 L (137-145) mmol/L BUN 75 H (7-17) mg/dL Creatinine 1.64 H (0.52-1.04) mg/dL Glucose 152 H (74-99) mg/dL POC Glucose (mg/dL) 153 H (75-99) mg/dL Calcium 7.7 L (8.4-10.2) mg/dL Total Protein 5.6 L (6.3-8.2) g/dL Albumin 2.6 L (3.5-5.0) g/dL
[2021-10-17 11:15] LABS: Glucose,Whole Blood 131 mg/dL (75-99)
[2021-10-17] MEDS: MONTELUKAST 10 MG TAB PO SCH (11:50)
--- NOTE | 2021-10-17 12:20 | P.PN ---
Subjective Progress Note Date: 10/17/21 This is a morbidly obese 65-year-old female patient with a body mass index of 54. The patient was admitted earlier for shortness of breath and the patient was discharged home on 10/13/2021 to be readmitted within 24 hours following her discharge because of worsening shortness of breath and acute hypoxemic respiratory failure. I had the chance to evaluate this patient another day of her discharge. At that time, the patient reported improvement in her shortness of breath. I came to find other the patient has underlying lung cancer under the care of Dr. Maria and the patient has received a combination of chemoradiation therapy in the past and she also has a remote history of DVT and pulmonary embolism noted on anticoagulation and she was receiving Lovenox therapeutic dose during her last hospital stay. The patient had a negative, COVID 19 testing in a negative influenza testing. The patient during her hospital stay and was treated with IV Rocephin. She was given IV Solu Medrol switched to prednisone burst taper. She was given Lasix and she was switched to oral Lasix 20 mg by mouth twice a day at time of discharge. The chest x-ray was showing significant opacification of the left lung and ultrasound the chest showed minimal amount of pleural fluid that was not amenable for thoracentesis. Echo of the heart showed a normal ejection fraction of 55-60% and the patient was found to have mild to moderate mitral regurgitation. Her pro-calcitonin level during her last admission was at 4.09. The patient came into the emergency department having difficulties breathing. She was hypoxic and on 6 L of O2 her pulse ox was 83%. She was placed on high flow oxygen and her saturation gradually improved. Because of increased work of breathing, subsequent was switched to a BiPAP. She was in A. fib RVR and she converses. The chest x-ray showed bilateral pulmonary infiltrates and following that the CAT scan of the chest was done that showed no evidence of any pulmonary embolism. There is a left upper lobe mass and there is also bilateral airspace disease/consolidation and the consolidation because much more dense and there is breath diseases dense in the left upper lobe which could be a underlying malignancy. At the same time, there was suspected hilar adenopathy more so on the right. The tracheobronchial tree was patent. There was some indeterminate pulmonary nodules consistent with metastatic disease and there was some underlying splenomegaly. The patient's white cell count remains elevated at 16.2 with a hemoglobin of 10.8, platelet count was 115 during this current admission, the BM was at 56 with a creatinine of 1.47 and the sodium level of 139, proBNP level was 3850 and the troponin level was at 0.141, normal LFTs, calcium level was 8.0, lactic acid level was at 2.8. The patient was started again on DuoNeb nebulized treatments around the clock, IV Solu-Medrol, and she was given Levaquin. In terms of lung cancer, the patient was diagnosed having a left lung mass measuring CT chest 08/12/17 revealed 1.5x1.7cm left hilar lesion, on 08/21/2017 PET showed enlarging left lung nodule (compared to PET scan in 2014) with intermediate uptake. Repeat CT chest 11/17/18 revealed revealed 1.8x2.6cm mass in left which increased in size compared to prior CT scan. Brain MRI 11/17/18, done for dizzyness, was negative for metastatic disease. 11/23/18 she had a bronchoscopy, transbronchial biopsy of left lower lobe, atypical cells suggestive of low grade pulmonary adenocarcinoma. Repeat CT 12/10/18 revealed 2.9cm LLL mass. She was evaluated by Throracic surgeon and was felt not to be a surgical candiate due to her co-morbidities and ended up having SBRT. She continued to follow up with Dr. Swann after radiation. PET 05/10 revealed suspicious uptake and increasing size of left hilar node and new small right lung nodules. She was referred back to Oncology 08/20/20. Repeat PET 09/03/20 revealed increasing size of previously irradiated area, SUV remained stable at 9, no additional suspicious finding. Bronchoscopy, biopsy was suspicious for atypical cells. It was decided by Rad/Onc to wait and repeat PET. 12/10/20 repeat PET revealed suspicious SUV in left hilar region with more solid component, representing local recurrence. A left breast lesion was evaluated by Dr. Swann with mammograms and U/S which came back negative. 01/06/21 she started concurrent weekly taxol/carboplatin with radiation completed on 02/17/21. 04/29/21 repeat PET scan revealed stable findings. It was decided not to proceed with immunotherapy due to connective tissue disease. She has Sjogrens disease, on hydroxychloroquine. She is lupus anticoagulant positive, was on warfarin, now on therapeutic dose of lovenox for the same. 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 On today's evaluation of 10/15/2021, seeing the patient for a follow-up. The patient is feeling slightly better compared to yesterday. The patient was on BiPAP throughout the night the pressure of 12/60 cm of water and FiO2 of 50%. This morning, she was taken off the BiPAP and the patient was placed on 14 L of O2 nasal cannula and she is being gradually weaned off. She is able to maintain a saturation above 88%. She is afebrile. She is hemodynamically stable. She was subjected to a combination of antibiotics and the patient was given a combination of Levaquin and cefepime. The patient's pro-calcitonin level was 0.34. The repeat chest x-ray from today still showing diffuse but the pulmonary infiltrates with probably some improvement in infiltrates on the right and the left lung base. Noted the patient was also being diuresis with IV Lasix. The patient's overall fluid balance is -3.6 L over the past 12 hours and the patient is headed towards more diuresis over the next 24 hours. The patient is also on IV Solu-Medrol. I was able to retrieve an old computed tomography scan of the chest that was done at [facility] from October 2020. At that time, the patient had a left upper lobe mass and several nodular densities in the left upper lobe and the right lung consistent with metastatic disease. Nevertheless, the right lung was fairly of any acute pulmonary infiltration. Note that the mass in the left upper lobe has grown in size in comparison. As such, there is obvious concern for progression of her underlying non-small cell lung cancer. She remains on IV heparin and the patient has had some troponin leaks. The patient will be taken off the IV heparin and the patient will be switched back to Lovenox as a long-term anticoagulants. 10/16/2021, the patient is doing better. The patient's been weaned down to 10 L of O2 nasal cannula. The chest x-ray shows some interval improvement in aeration and the patient continued to diurese adequately with IV Lasix 40 mg every 8 hours. The patient is in a negative fluid balance of 3.5 L over the pa st 24 hours. Meanwhile, the patient renal function continues to be stable with a BUN of 64 and a creatinine of 1.59 and the sodium level is at 139. The patient remains on IV cefepime and Levaquin 5 mg every 48 hours. The patient remains on Lovenox 1 mg subcu every 24 hours. The patient is also on IV Solu Medrol 60 mg IV push every 6 hours. No new complaints. Lower extremity edema is improving. No chest pain. No pleurisy. No hemoptysis. No other significant events over the past 24 hours. The patient is responding to the above-mentioned treatment for now. 10/17/2021, the patient is doing well. The patient was weaned down from 10 L to 8 L of oxygen nasal cannula. Chest x-ray finding's are also improving. The patient is diuresing well and overall fluid balance of the -3.7 L over the past 24 hours. The patient has no specific complaints. She reports improvement in her shortness of breath. No chest pain. No cough or sputum production. No fever or chills. The white cell count is at 50 with a hemoglobin of 9.4 and the patient has a sodium level of 135, BUN of 75 and a creatinine of 1.6, serum bicarbs at 30. No chest pain. No other significant events overnight. IV fl uids are currently at [facility]. Objective - Vital Signs Vital signs: Vital Signs Temp 98.0 F 10/17/21 08:00 Pulse 68 10/17/21 11:43 Resp 22 10/17/21 11:43 BP 107/62 10/17/21 10:00 Pulse Ox 94 L 10/17/21 11:00 Intake & Output 10/16/21 10/17/21 10/17/21 18:59 06:59 18:59 Intake Total 245 220 70 Output Total 2610 1575 515 Balance -2425 -1355 -497 Weight 135.6 kg Intake: IV 245 220 70 0.9NS 245 220 70 Output: Urine 2610 1575 515 Other: Voiding Method Indwelling Catheter Indwelling Catheter Indwelling Catheter - Exam GENERAL EXAM: Alert , still having some shortness of breath, particularly on a BiPAP at a pressure of 10 liters O2 nasal cannula. The patient is morbidly obese. Breathing is less labored compared to yesterday. Able to communicate. This is in the patient's breathing is nonlabored and there is no use of acc essory muscles of breathing. HEAD: Normocephalic. EYES: Normal reaction of pupils, equal size. NOSE: Clear with pink turbinates. THROAT: No erythema or exudates. NECK: No masses, no JVD. CHEST: No chest wall deformity. LUNGS: Equal air entry with few scattered rhonchi more so on the left. CVS: S1 and S2 normal with no audible murmur, regular rhythm. ABDOMEN: No hepatosplenomegaly, normal bowel sounds, no guarding or rigidity. SPINE: No scoliosis or deformity SKIN: No rashes CENTRAL NERVOUS SYSTEM: No focal deficits, tone is normal in all 4 extremities. EXTREMITIES: There is increased bilateral peripheral edema. No clubbing, no cyanosis. Peripheral pulses are intact. - Labs CBC & Chem 7: 10/17/21 04:14 10/17/21 04:14 Labs: Abnormal Lab Results - Last 24 Hours (Table) 10/16/21 10/16/21 10/17/21 Range/Units 16:32 19:54 04:14 WBC 15.3 H (3.8-10.6) k/uL RBC 3.40 L (3.80-5.40) m/uL Hgb 9.4 L (11.4-16.0) gm/dL Hct 30.8 L (34.0-46.0) % MCHC 30.5 L (31.0-37.0) g/dL Plt Count 104 L (150-450) k/uL Sodium (137-145) mmol/L BUN (7-17) mg/dL Creatinine (0.52-1.04) mg/dL Glucose (74-99) mg/dL POC Glucose (mg/dL) 142 H 274 H (75-99) mg/dL Calcium (8.4-10.2) mg/dL Total Protein (6.3-8.2) g/dL Albumin (3.5-5.0) g/dL 10/17/21 10/17/21 10/17/21 Range/Units 04:14 06:23 11:14 WBC (3.8-10.6) k/uL RBC (3.80-5.40) m/uL Hgb (11.4-16.0) gm/dL Hct (34.0-46.0) % MCHC (31.0-37.0) g/dL Plt Count (150-450) k/uL Sodium 135 L (137-145) mmol/L BUN 75 H (7-17) mg/dL Creatinine 1.64 H (0.52-1.04) mg/dL Glucose 152 H (74-99) mg/dL POC Glucose (mg/dL) 153 H 131 H (75-99) mg/dL Calcium 7.7 L (8.4-10.2) mg/dL Total Protein 5.6 L (6.3-8.2) g/dL Albumin 2.6 L (3.5-5.0) g/dL Assessment and Plan Plan: Acute on chronic hypoxemic respiratory failure with development of diffuse breath and pulmonary infiltrates/with an area of masslike consolidation in the left upper lobe which could be an area of malignancy as the patient is known to have non-small cell lung cancer/adenocarcinoma of the left lung. The patient is also receiving radiation therapy to that area in the past. Noted the patient was recently in the hospital treated for pneumonia and discharged home to present back within 24 hours with worsening shortness of breath and hypoxemia. CAT scan of the chest was done and reveals a masslike consolidation of left upper lobe in addition to diffuse breath and airspace disease which may be infectious versus malignant in nature with progression of her underlying lung cancer. . The patient had a previous CAT scan of the chest from October 2020 and in comparison, the left upper lobe masses increased in size over the past 1 year. Nevertheless, the diffuse airspace disease seen bilaterally in the right lung and the left lower lobe is of a new onset. Rule out superinfection. Rule out tumor progression. Rule out interstitial edema. The patient is responding to the above-mentioned treatment for now. The chest x-ray findings of improved and the patient is showing improvement in bilateral pulmonary infiltrates essentially due to diuresis. Pro-calcitonin level is minimally elevated and the patient was also covered with broad-spectrum antibiotics. Paroxysmal atrial fibrillation with RVR at time of admission, current rhythm is sinus COPD Chronic and ongoing tobacco dependence. History of lung cancer, likely a stage IV adenocarcinoma, status post chemoradiation, completed, February 2021. The patient was diagnosed with lung cancer 2018. Please refer to the details as mentioned above regarding the patient's history of non-small cell lung cancer which is probably an adenocarcinoma. History of protein C&S deficiency. History of DVT/pulmonary embolism. Hyperlipidemia. Hypothyroidism. History of seizure disorder. History of depression. Chronic kidney disease, creatinine stable for now Troponin leak, nonspecific, Plan Keep this patient to the ICU Continue BiPAP for respiratory support, as needed and overnight Continue bronchodilators Stopped IV Solu Medrol and put the patient on a prednisone burst taper Stopped IV Zosyn and put the patient oral Levaquin pro-calcitonin level is mildly elevated Continue IV Lasix at a dose of 40 mg every 12 hours and monitor the fluid balance and electrolytes Continue Lovenox 200 mg subcu on a daily basis Reviewed the old computed tomography scan of the chest and there is obvious con cern for disease progression We'll give the patient another 24 hours here in the ICU for further optimization and diuresis and antibiotic treatment. At the pulmonary infiltrates remain unchanged, she may need a bronchoscopy and biopsy. I do not see the need for biopsy at this point especially the patient is showing signs of improvement. The chest x-ray showing improvement in the infiltration especially the one on the right. 3 follow-up chest x-ray from today showing improvement in about pulmonary infiltrates.. The patient still has a left upper lobe opacity consistent with malignancy. Wean down the FiO2 as tolerated, currently on 8 L We'll continue to follow make further recommendations based on her progress.
[2021-10-17 16:17] LABS: Glucose,Whole Blood 223 mg/dL (75-99)
--- NOTE | 2021-10-17 18:14 | P.PN ---
Subjective Progress Note Date: 10/17/21 Principal diagnosis: hypoxia Objective - Vital Signs Vital signs: Vital Signs Temp 97.6 F 10/17/21 16:00 Pulse 68 10/17/21 16:20 Resp 18 10/17/21 16:20 BP 111/64 10/17/21 16:00 Pulse Ox 93 L 10/17/21 16:00 Intake & Output 10/16/21 10/17/21 10/17/21 18:59 06:59 18:59 Intake Total 245 220 50 Output Total 2610 1575 1250 Balance -2365 -1355 -1200 Weight 135.6 kg Intake: IV 245 220 50 0.9NS 245 220 50 Output: Urine 2610 1575 1250 Other: Voiding Method Indwelling Catheter Indwelling Catheter Indwelling Catheter # Bowel Movements 1 - Exam - Constitutional General appearance: cooperative, mild distress, obese - EENT Eyes: anicteric sclerae, EOMI ENT: hearing grossly normal, normal oropharynx - Neck Neck: no lymphadenopathy - Respiratory Respiratory: Increased effort and hypoxic right: diminished, left: rhonchi, wh eezing - Cardiovascular Rhythm: irregularly irregular Peripheral Edema: bilateral: None - Gastrointestinal General gastrointestinal: no absent bowel sounds, no decreased bowel sounds, no distended, no hepatomegaly, no hyperactive bowel sounds, normal bowel sounds, no organomegaly, no rigid, no scaphoid, soft, no splenomegaly, no tenderness, no umbilical hernia, no ventral hernia - Integumentary Integumentary: normal - Neurologic Neurologic: CNII-XII intact - Musculoskeletal Musculoskeletal: generalized weakness, strength equal bilaterally - Psychiatric Psychiatric: A&O x's 3, appropriate affect, intact judgment & insight - Labs CBC & Chem 7: 10/17/21 04:14 10/17/21 04:14 Labs: Abnormal Lab Results - Last 24 Hours (Table) 10/16/21 10/17/21 10/17/21 Range/Units 19:54 04:14 04:14 WBC 15.3 H (3.8-10.6) k/uL RBC 3.40 L (3.80-5.40) m/uL Hgb 9.4 L (11.4-16.0) gm/dL Hct 30.8 L (34.0-46.0) % MCHC 30.5 L (31.0-37.0) g/dL Plt Count 104 L (150-450) k/uL Sodium 135 L (137-145) mmol/L BUN 75 H (7-17) mg/dL Creatinine 1.64 H (0.52-1.04) mg/dL Glucose 152 H (74-99) mg/dL POC Glucose (mg/dL) 274 H (75-99) mg/dL Hemoglobin A1c (0.0-6.0) % Calcium 7.7 L (8.4-10.2) mg/dL Total Protein 5.6 L (6.3-8.2) g/dL Albumin 2.6 L (3.5-5.0) g/dL Procalcitonin (0.02-0.09) ng/mL 10/17/21 10/17/21 10/17/21 Range/Units 04:14 04:14 06:23 WBC (3.8-10.6) k/uL RBC (3.80-5.40) m/uL Hgb (11.4-16.0) gm/dL Hct (34.0-46.0) % MCHC (31.0-37.0) g/dL Plt Count (150-450) k/uL Sodium (137-145) mmol/L BUN (7-17) mg/dL Creatinine (0.52-1.04) mg/dL Glucose (74-99) mg/dL POC Glucose (mg/dL) 153 H (75-99) mg/dL Hemoglobin A1c 6.1 H (0.0-6.0) % Calcium (8.4-10.2) mg/dL Total Protein (6.3-8.2) g/dL Albumin (3.5-5.0) g/dL Procalcitonin 0.19 H (0.02-0.09) ng/mL 10/17/21 10/17/21 Range/Units 11:14 16:15 WBC (3.8-10.6) k/uL RBC (3.80-5.40) m/uL Hgb (11.4-16.0) gm/dL Hct (34.0-46.0) % MCHC (31.0-37.0) g/dL Plt Count (150-450) k/uL Sodium (137-145) mmol/L BUN (7-17) mg/dL Creatinine (0.52-1.04) mg/dL Glucose (74-99) mg/dL POC Glucose (mg/dL) 131 H 223 H (75-99) mg/dL Hemoglobin A1c (0.0-6.0) % Calcium (8.4-10.2) mg/dL Total Protein (6.3-8.2) g/dL Albumin (3.5-5.0) g/dL Procalcitonin (0.02-0.09) ng/mL Assessment and Plan (1) Respiratory failure Narrative/Plan: Improving Moving from ICU to Regular medical floor today Current Visit: Yes Status: Acute Code(s): J96.90 - RESPIRATORY FAILURE, UNSP, UNSP W HYPOXIA OR HYPERCAPNIA SNOMED Code(s): 062434336 (2) Acute respiratory distress Current Visit: Yes Status: Acute Priority: High Code(s): R06.03 - ACUTE RESPIRATORY DISTRESS SNOMED Code(s): 977953598 (3) Hypoxia Current Visit: Yes Status: Acute Code(s): R09.02 - HYPOXEMIA SNOMED Code(s): 333635659 (4) Lung cancer Narrative/Plan: No active treatment plan at this time, will need to recover. Current Visit: Yes Status: Acute Priority: High Code(s): C34.90 - MALIGNANT NEOPLASM OF UNSP PART OF UNSP BRONCHUS OR LUNG SNOMED Code(s): 651306791 (5) Bicytopenia Current Visit: No Status: Acute Priority: High Code(s): D75.89 - OTHER SPECIFIED DISEASES OF BLOOD AND BLOOD-FORMING ORGANS SNOMED Code(s): 13621203 Plan: Hold all treatments in oncologic care prior to recovery of acute situation. Plan rehab after safe discharge Dr. Colón: I have completed the full history and physical, developed the above impression and plan and agree with dictation, dictated as a scribe.
[2021-10-17 20:10] LABS: Glucose,Whole Blood 202 mg/dL (75-99)
[2021-10-17] MEDS: PANTOPRAZOLE SODIUM 40 MG GRANULE PKT PO SCH (20:49)
[2021-10-17] MEDS: ASPIRIN 325 MG TAB PO SCH (20:49)
[2021-10-17] MEDS: GABAPENTIN 300 MG CAP PO SCH (20:49)
[2021-10-18] MEDS: SODIUM CHLORIDE 0.9% 1,000 ML IV SCH (05:52)
[2021-10-18 06:16] LABS: Glucose,Whole Blood 130 mg/dL (75-99)
[2021-10-18] MEDS: INSULIN ASPART (NovoLOG) 100 UNIT/ML VIAL SQ SCH ×4 (06:18→20:19)
[2021-10-18] MEDS: ATORVASTATIN 40 MG TAB PO SCH (06:21)
[2021-10-18] MEDS: CITALOPRAM HYDROBROMIDE 20 MG TAB PO SCH (06:21)
[2021-10-18] MEDS: FOLIC ACID-VIT B COMPLEX-VIT C 1 CAP PO SCH (06:21)
[2021-10-18] MEDS: LEVOTHYROXINE 25 MCG TAB PO SCH (06:21)
[2021-10-18] MEDS: SYMBICORT 160-4.5 MCG INHALER INHALATION SCH (08:54)
[2021-10-18] MEDS: IPRATROPIUM-ALBUTEROL 3 ML NEB INHALATION SCH ×4 (08:54→19:54)
[2021-10-18] MEDS: predniSONE 20 MG TAB PO SCH (08:58)
[2021-10-18] MEDS: DILTIAZEM CD 180 MG CAP.ER.24H PO SCH (08:58)
[2021-10-18] MEDS: BACLOFEN 10 MG TAB PO SCH ×2 (08:58→20:19)
[2021-10-18] MEDS: NICOTINE 14MG/24HR PATCH TRANSDERM SCH (08:58)
[2021-10-18] MEDS: FUROSEMIDE 10 MG/ML 4 ML VIAL IV SCH (08:59)
[2021-10-18] MEDS: ENOXAPARIN 100 MG/ML SYRINGE SQ SCH (08:59)
[2021-10-18] MEDS ORDERED: predniSONE 20 MG TAB PO SCH (09:00)
[2021-10-18 09:48] LABS: Basophils % (A) 0 %; Eosinophils # (A) 0.1 k/uL (0-0.7); Eosinophils % (A) 0 %; HCT 33.3 % (34.0-46.0); HGB 10.4 gm/dL (11.4-16.0); Hypochromasia Slight; Lymphocytes # (A) 1.1 k/uL (1.0-4.8); Lymphocytes % (A) 9 %; MCH 28.2 pg (25.0-35.0); MCHC 31.2 g/dL (31.0-37.0); MCV 90.5 fL (80.0-100.0); Mean Platelet Volume 8.7; Monocytes # (A) 0.5 k/uL (0-1.0); Monocytes % (A) 5 %; Neutrophils # (A) 10.3 k/uL (1.3-7.7); Neutrophils % (A) 85 %; Platelet Count 103 k/uL (150-450); RBC 3.69 m/uL (3.80-5.40); RDW 15.6 % (11.5-15.5); WBC 12.2 k/uL (3.8-10.6)
--- NOTE | 2021-10-18 09:57 | XR ---
EXAMINATION TYPE: XR chest 1V portable DATE OF EXAM: 10/18/2021 COMPARISON: 10/17/2021 INDICATION: Short of breath TECHNIQUE: Single frontal view of the chest is obtained. FINDINGS: The heart size is normal. The pulmonary vasculature is mildly prominent. Diffuse mild increased lung markings are present bilaterally slightly greater on the left. Some air b ronchograms are present. Correlate for pneumonia. Pulmonary edema could be considered within the diff erential. Findings are similar to comparison. Continued follow-up up is recommended. IMPRESSION: 1. Stable appearance of diffuse increased lung markings more focal on the left. Continued follow-up i s recommended.
[2021-10-18 10:11] LABS: Calcium 8.5 mg/dL (8.4-10.2); Potassium 3.9 mmol/L (3.5-5.1); Total Bilirubin 0.6 mg/dL (0.2-1.3); Total Protein 6.6 g/dL (6.3-8.2)
--- NOTE | 2021-10-18 10:28 | P.PN ---
Subjective Progress Note Date: 10/18/21 HISTORY OF PRESENT ILLNESS 56 year-old morbidly obese female one of Dr. 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 fib, patient also known to have non-small cell see of the lung has been on chemotherapy postradiation, she had DVT and PE as well history of obstructive sleep apnea and recurrent TIA who was hospitalized in October 06 till October 14 for severe dyspnea and shortness of breath and respiratory failure was seen cardiology and pulmonary along with oncology treated for sepsis with left-sided pneumonia along with acute hypoxic respiratory failure was initially on BiPAP and transferred to Ventimask and then nasal cannula. Patient was on steroids along with antibiotics and updraft treatment regular basis all along until the day of discharge. Patient presented to the emergency department by EMS with worsening dyspnea and respiratory failure found to have severe hypoxia require BiPAP was started on IV steroids along with updraft treatment seen pulmonary quickly in the emergency department. With a high risk of pulmonary embolism patient had A. fib patient was started on heparin drip her chest x-ray showed bilateral pulmonary infiltrate CAT scan showed no evidence of any pulmonary embolism at the time but showed left upper lobe mass is also bilaterallydisease in consultation consistent with pneumonia beside her underlying malignancy and probably obstructive pneumonitis. Patient also had some hilar adenopathy of the right side the tracheobronchial tree was patent white blood cell was 16,000 hemoglobin 10.8 creatinine was 1.47 BNP was 3815 with troponin mildly elevated at 0.141, also lactic acid was 2.8 at the time. Patient was started on DuoNeb, Solu-Medr ol and giving Levaquin. Patient was hospitalized with acute hypoxic respiratory failure with significant failure and less than 24 hours before discharge. Patient be admitted will be seen cardiology as well because of elevated troponin and A. fib. 10/15: Patient is seen today in the intensive care unit. She is off BiPAP and on high flow nasal cannula at 14 L with pulse ox 90%. She has been seen by pulmonary medicine and also cardiology. Elevated troponin secondary to hypoxia. Echocardiogram has been ordered. Repeat blood work reveals WBC 14.5, hemoglobin 9.5, platelet count 94. Electrolytes normal. BUN 54 and creatinine 1.62. Capillary blood glucose running between 148 and 156. Repeat chest x-ray reveals diffuse right lung infiltrates and left basilar infiltrates with left midlung mass or masslike consolidation are demonstrated. No significant change from one day earlier. Heparin drip has been discontinued. Patient is currently on IV antibiotics the form of cefepime and Levaquin. Consult added for oncology. 10/16: Patient is seen today in the intensive care unit with plan to maintain another 24 hours here. Patient states that she is feeling much better today.she is on 10 L of oxygen by nasal cannula but feels her breathing is much improved. Pulse ox is 93%. She's been afebrile, heart rate in the 60s to 80s, blood pressure 101/58. Repeat blood work reveals WBC 20, hemoglobin 10.1, platelet count 113. Electrolytes normal. BUN 64 creatinine 1.59. Capillary blood glucose running between 144 and 278. Chest x-ray reveals diffuse right lung infiltrates and left basilar infiltrates with left midlung mass or masslike consolidation all redemonstrated. No significant change. 10/17: Patient remains in the intensive care unit. She is currently on oxygen at 8 L nasal cannula with pulse ox of 98%. She has been afebrile, heart rate in 60s and 70s, respiratory rate 24, blood pressure 117/63. Repeat blood work reveals WBC 15.3, hemoglobin 9.4, platelet count 104. Sodium 135, potassium 4.0, BUN 75, creatinine 1.64. Capillary blood glucose running between 142 and 274. Patient does not have history of diabetes. A1c ordered. Pulmonary medicine has discontinued Levaquin, cefepime, IV Solu-Medrol and transitioned to oral prednisone. Patient is complaining of constipation for which milk of magnesia and prune juice to be given today and stool softener ordered scheduled daily. Patient is also followed by cardiology and IV Lasix decreased to 40 mg every 12 hours continue Cardizem and continue telemetry monitoring. Anticipate patient will be transferred out of the intensive care unit today. Chest x-ray reveals diffuse right lung infiltrates and left basilar infiltrates and/or scarring with left midlung mass or masslike consolidation all redemonst rated. No significant change. Consider bronchoscopy evaluation. 10/18: Patient is doing slightly better down to 4 L of O2, continue updraft treatment, patient is up in the chair today should be needed off and transitional into prednisone from Solu-Medrol, her Mccann catheter still in will try to remove Mccann catheter today encourage physical therapy and hopefully prepare for been transferred to [facility] on Wednesday. Had long discussion with pulmonary apparently with infiltrate she had on the lef t side and with the big mass on the opposite side patient has been having recurrent pulmonary edema on and off with worsening symptom related to her CA I believe should have more talk with her oncologist about with the plan on the long run. REVIEW OF SYSTEMS Constitutional: Mildly overweight, no fever, no chills. EENT: No headache. No blurred vision or double vision, no loss of vision. No loss of Hearing, no ringing in the ears, no dizziness. No nasal drainage or co ngestion. No epistaxis. No sore throat. Lungs: No shortness of breath mild wheezes. Cardiovascular: No chest pain, no lower extremity edema. No palpitations. No paroxysmal nocturnal dyspnea. No orthopnea. No lightheadedness or dizziness. No syncopal episodes. Abdominal: No abdominal pain. No nausea, vomiting. No diarrhea. No constipation. No bloody or tarry stools.. No loss of appetite. Genitourinary: No dysuria, increased frequency, urgency. No urinary retention- Mccann in place. Musculoskeletal: Generalized myalgia and arthralgia with abnormal balance and gait slight weakness in the right side. Integumentary: No wounds, no lesions. No rash or pruritus. No unusual bruising. No change in hair or nails. Neurologic: Positive weakness of the right side along with speech problem and aphasia without dysphagia currently Psychiatric: No depression. No anxiety. No mood swings. Endocrine: No abnormal blood sugars. No weight change. No excessive sweating or thirst. No cold intolerance. PHYSICAL EXAMINATION Gen: This is a morbidly obese 56-year-old female. She is resting in the ICU bed and appears to be comfortable and in no acute distress HEENT: Head is atraumatic, normocephalic. Pupils equal, round. Sclerae is anicteric. NECK: Supple. No JVD. No lymphadenopathy. No thyromegaly. LUNGS: Decreased breath sounds bilaterally. HEART: Regular rate and rhythm. ABDOMEN: Soft. Bowel sounds are present. No masses. No tenderness. EXTREMITIES: Trace edema decreased pulse bilaterally mild osteoarthritis both knees NEUROLOGICAL: Patient is awake, alert and oriented x3. Cranial nerves 2 through 12 are grossly intact. ASSESSMENT AND PLAN 1 acute on chronic hypoxic respiratory failure with diffuse infiltrate with left upper lobe pneumonia with possible obstructive pneumonitis with the large mass in the left upper lobe. Down on O2 to 4 L, continue prednisone, continue Pulmi jamal continue cefepime and Levaquin at this point. Prepare for going to [facility] on Wednesday. 2 COPD exacerbation: Patient is doing slightly but better with less prednisone along with her updraft treatment. 3 consolidation and obstructive pneumonia: Pulmonary consult appreciated. Still on IV diuretics and antibiotics. 4 early sepsis: Most likely caused by pneumonia, blood culture was done patient be on IV antibiotics for now. 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 There is no solid management at this point for cancer. 6 Atrial fibrillation with rapid ventricular response, A. fib is much better co ntrol on medical management. 7 chronic pain syndrome: Remain on hydrocodone 10/325 mg 3 times a day. 8 coagulopathy with DVT and pulmonary embolism, patient doing Lovenox 200 mg subcutaneous daily. 9 acute kidney injury with chronic kidney disease stage 3. Kidney function has improved some at this point. 10 history of seizure: Has been on Keppra 750 mg twice a day resume medication. 11 hypothyroidism: Continue levothyroxine 25 g daily. 12 hyperlipidemia: Remain on atorvastatin 40 mg a day we'll resume medication. 13 chronic neuropathy: Most likely peripheral neuropathy might be chemotherapy related, remain on gabapentin 300 mg daily at bedtime. 14 severe GERD/GI prophylaxis: Patient remain on pantoprazole 20 mg daily. [facility] on Wednesday Objective - Vital Signs Vital signs: Vital Signs Temp 97.8 F 10/18/21 08:56 Pulse 72 10/18/21 09:07 Resp 18 10/18/21 08:56 BP 101/62 10/18/21 08:56 Pulse Ox 94 L 10/18/21 08:56 Intake & Output 10/17/21 10/18/21 10/18/21 18:59 06:59 18:59 Intake Total 170 120 Output Total 1250 1300 Balance -1080 -1300 120 Intake: IV 50 0.9NS 50 Oral 120 120 Output: Urine 1250 1300 Other: Voiding Method Indwelling Catheter Indwelling Catheter # Bowel Movements 1 - Labs CBC & Chem 7: 10/18/21 09:14 10/18/21 09:14 Labs: Abnormal Lab Results - Last 24 Hours (Table) 10/17/21 10/17/21 10/17/21 Range/Units 04:14 04:14 11:14 POC Glucose (mg/dL) 131 H (75-99) mg/dL Hemoglobin A1c 6.1 H (0.0-6.0) % Procalcitonin 0.19 H (0.02-0.09) ng/mL 10/17/21 10/17/21 10/18/21 Range/Units 16:15 20:07 06:15 POC Glucose (mg/dL) 223 H 202 H 130 H (75-99) mg/dL Hemoglobin A1c (0.0-6.0) % Procalcitonin (0.02-0.09) ng/mL
[2021-10-18] MEDS: SENNOSIDES-DOCUSATE SODIUM 1 EACH TAB PO SCH (10:31)
--- NOTE | 2021-10-18 10:57 | P.PN ---
Subjective Progress Note Date: 10/18/21 56-year-old lady with history of carcinoma of the lung presented to hospital with hypoxia shortness of breath and respiratory distress. While in the ER she apparently had episode of atrial fibrillation that was transient and self- limited. there is no EKG or rhythm strips of this episode. She remains in normal sinus rhythm and has not had any reports episodes of atrial fib or ectopy. Patient is doing well, she was downgraded to selective care yesterday. She is seen sitting in the chair this morning on 5 LNC. She denies chest pain or shortness of breath. BUN is 82 creatinine is 1.9. Patient is on Lasix 40 mg IV will transitioned to oral. Objective - Vital Signs Vital signs: Vital Signs Temp 97.8 F 10/18/21 08:56 Pulse 72 10/18/21 09:07 Resp 18 10/18/21 08:56 BP 101/62 10/18/21 08:56 Pulse Ox 94 L 10/18/21 08:56 Intake & Output 10/17/21 10/18/21 10/18/21 18:59 06:59 18:59 Intake Total 170 120 Output Total 1250 1300 Balance -1080 -1300 120 Intake: IV 50 0.9NS 50 Oral 120 120 Output: Urine 1250 1300 Other: Voiding Method Indwelling Catheter Indwelling Catheter Indwelling Catheter # Bowel Movements 1 - Exam PHYSICAL EXAM: VITAL SIGNS: Reviewed. GENERAL: Well-developed in no acute distress. HEENT: Head is normocephalic. Pupils are equal, round. Sclerae anicteric. Mucous membranes of the mouth are moist. NECK: Supple. No JVD or thyromegaly RESPIRATORY: Respirations even and unlabored. Lungs diminished to auscultation bilaterally.patient remains on 5 L high flow CARDIO: Regular rate and rhythm. S1 and S2 heard. No murmur or gallops. EXTREMITIES: Normal range of motion. No clubbing or cyanosis. Peripheral pulses intact. mild bilateral lower extremity edema NEURO: Orientated to person, time, mood is appropriate - Labs CBC & Chem 7: 10/18/21 09:14 10/18/21 09:14 Labs: Abnormal Lab Results - Last 24 Hours (Table) 10/17/21 10/17/21 10/17/21 Range/Units 04:14 04:14 11:14 WBC (3.8-10.6) k/uL RBC (3.80-5.40) m/uL Hgb (11.4-16.0) gm/dL Hct (34.0-46.0) % RDW (11.5-15.5) % Plt Count (150-450) k/uL Neutrophils # (1.3-7.7) k/uL Carbon Dioxide (22-30) mmol/L BUN (7-17) mg/dL Creatinine (0.52-1.04) mg/dL POC Glucose (mg/dL) 131 H (75-99) mg/dL Hemoglobin A1c 6.1 H (0.0-6.0) % Albumin (3.5-5.0) g/dL Procalcitonin 0.19 H (0.02-0.09) ng/mL 10/17/21 10/17/21 10/18/21 Range/Units 16:15 20:07 06:15 WBC (3.8-10.6) k/uL RBC (3.80-5.40) m/uL Hgb (11.4-16.0) gm/dL Hct (34.0-46.0) % RDW (11.5-15.5) % Plt Count (150-450) k/uL Neutrophils # (1.3-7.7) k/uL Carbon Dioxide (22-30) mmol/L BUN (7-17) mg/dL Creatinine (0.52-1.04) mg/dL POC Glucose (mg/dL) 223 H 202 H 130 H (75-99) mg/dL Hemoglobin A1c (0.0-6.0) % Albumin (3.5-5.0) g/dL Procalcitonin (0.02-0.09) ng/mL 10/18/21 10/18/21 Range/Units 09:14 09:14 WBC 12.2 H (3.8-10.6) k/uL RBC 3.69 L (3.80-5.40) m/uL Hgb 10.4 L (11.4-16.0) gm/dL Hct 33.3 L (34.0-46.0) % RDW 15.6 H (11.5-15.5) % Plt Count 103 L (150-450) k/uL Neutrophils # 10.3 H (1.3-7.7) k/uL Carbon Dioxide 31 H (22-30) mmol/L BUN 82 H (7-17) mg/dL Creatinine 1.92 H (0.52-1.04) mg/dL POC Glucose (mg/dL) (75-99) mg/dL Hemoglobin A1c (0.0-6.0) % Albumin 3.0 L (3.5-5.0) g/dL Procalcitonin (0.02-0.09) ng/mL Assessment and Plan Assessment: elevated troponin secondary to hypoxia and supplying demand mismatch Hypertension Possible episode of self eliminating atrial fibrillation Non-arrhythmic moderate mitral valve insufficiency Plan: Transition patient to Lasix by mouth 40 mg twice a day continue with Cardizem by mouth Continue on telemetry monitoring, Blood pressure well controlled Continue on current cardiac medications Further recommendations based on clinical course The above impression and plan of care have been discussed and directed by the signing physician. Louann Rosario, nurse practitioner, acting as scribe for signing physician.
[2021-10-18 11:29] LABS: Glucose,Whole Blood 117 mg/dL (75-99)
--- NOTE | 2021-10-18 11:32 | P.PN ---
Subjective Progress Note Date: 10/18/21 This is a morbidly obese 65-year-old female patient with a body mass index of 54. The patient was admitted earlier for shortness of breath and the patient was discharged home on 10/13/2021 to be readmitted within 24 hours following her discharge because of worsening shortness of breath and acute hypoxemic respiratory failure. I had the chance to evaluate this patient another day of her discharge. At that time, the patient reported improvement in her shortness of breath. I came to find other the patient has underlying lung cancer under the care of Dr. Maria and the patient has received a combination of chemoradiation therapy in the past and she also has a remote history of DVT and pulmonary embolism noted on anticoagulation and she was receiving Lovenox therapeutic dose during her last hospital stay. The patient had a negative, COVID 19 testing in a negative influenza testing. The patient during her hospital stay and was treated with IV Rocephin. She was given IV Solu Medrol switched to prednisone burst taper. She was given Lasix and she was switched to oral Lasix 20 mg by mouth twice a day at time of discharge. The chest x-ray was showing significant opacification of the left lung and ultrasound the chest showed minimal amount of pleural fluid that was not amenable for thoracentesis. Echo of the heart showed a normal ejection fraction of 55-60% and the patient was found to have mild to moderate mitral regurgitation. Her pro-calcitonin level during her last admission was at 4.09. The patient came into the emergency department having difficulties breathing. She was hypoxic and on 6 L of O2 her pulse ox was 83%. She was placed on high flow oxygen and her saturation gradually improved. Because of increased work of breathing, subsequent was switched to a BiPAP. She was in A. fib RVR and she converses. The chest x-ray showed bilateral pulmonary infiltrates and following that the CAT scan of the chest was done that showed no evidence of any pulmonary embolism. There is a left upper lobe mass and there is also bilateral airspace disease/consolidation and the consolidation because much more dense and there is breath diseases dense in the left upper lobe which could be a underlying malignancy. At the same time, there was suspected hilar adenopathy more so on the right. The tracheobronchial tree was patent. There was some indeterminate pulmonary nodules consistent with metastatic disease and there was some underlying splenomegaly. The patient's white cell count remains elevated at 16.2 with a hemoglobin of 10.8, platelet count was 115 during this current admission, the BM was at 56 with a creatinine of 1.47 and the sodium level of 139, proBNP level was 3850 and the troponin level was at 0.141, normal LFTs, calcium level was 8.0, lactic acid level was at 2.8. The patient was started again on DuoNeb nebulized treatments around the clock, IV Solu-Medrol, and she was given Levaquin. In terms of lung cancer, the patient was diagnosed having a left lung mass measuring CT chest 08/12/17 revealed 1.5x1.7cm left hilar lesion, on 08/21/2017 PET showed enlarging left lung nodule (compared to PET scan in 2014) with intermediate uptake. Repeat CT chest 11/17/18 revealed revealed 1.8x2.6cm mass in left which increased in size compared to prior CT scan. Brain MRI 11/17/18, done for dizzyness, was negative for metastatic disease. 11/23/18 she had a bronchoscopy, transbronchial biopsy of left lower lobe, atypical cells suggestive of low grade pulmonary adenocarcinoma. Repeat CT 12/10/18 revealed 2.9cm LLL mass. She was evaluated by Throracic surgeon and was felt not to be a surgical candiate due to her co-morbidities and ended up having SBRT. She continued to follow up with Dr. Swann after radiation. PET 05/10 revealed suspicious uptake and increasing size of left hilar node and new small right lung nodules. She was referred back to Oncology 08/20/20. Repeat PET 09/03/20 revealed increasing size of previously irradiated area, SUV remained stable at 9, no additional suspicious finding. Bronchoscopy, biopsy was suspicious for atypical cells. It was decided by Rad/Onc to wait and repeat PET. 12/10/20 repeat PET revealed suspicious SUV in left hilar region with more solid component, representing local recurrence. A left breast lesion was evaluated by Dr. Swann with mammograms and U/S which came back negative. 01/06/21 she started concurrent weekly taxol/carboplatin with radiation completed on 02/17/21. 04/29/21 repeat PET scan revealed stable findings. It was decided not to proceed with immunotherapy due to connective tissue disease. She has Sjogrens disease, on hydroxychloroquine. She is lupus anticoagulant positive, was on warfarin, now on therapeutic dose of lovenox for the same. Note that her director of corporate communications is Dr. Quick. On today's evaluation of 10/15/2021, seeing the patient for a follow-up. The patient is feeling slightly better compared to yesterday. The patient was on BiPAP throughout the night the pressure of 12/60 cm of water and FiO2 of 50%. This morning, she was taken off the BiPAP and the patient was placed on 14 L of O2 nasal cannula and she is being gradually weaned off. She is able to maintain a saturation above 88%. She is afebrile. She is hemodynamically stable. She was subjected to a combination of antibiotics and the patient was given a combination of Levaquin and cefepime. The patient's pro-calcitonin level was 0.34. The repeat chest x-ray from today still showing diffuse but the pulmonary infiltrates with probably some improvement in infiltrates on the right and the left lung base. Noted the patient was also being diuresis with IV Lasix. The patient's overall fluid balance is -3.6 L over the past 12 hours and the patient is headed towards more diuresis over the next 24 hours. The patient is also on IV Solu-Medrol. I was able to retrieve an old computed tomography scan of the chest that was done at [facility] from October 2020. At that time, the patient had a left upper lobe mass and several nodular densities in the left upper lobe and the right lung consistent with metastatic disease. Nevertheless, the right lung was fairly of any acute pulmonary infiltration. Note that the mass in the left upper lobe has grown in size in comparison. As such, there is obvious concern for progression of her underlying non-small cell lung cancer. She remains on IV heparin and the patient has had some troponin leaks. The patient will be taken off the IV heparin and the patient will be switched back to Lovenox as a long-term anticoagulants. 10/16/2021, the patient is doing better. The patient's been weaned down to 10 L of O2 nasal cannula. The chest x-ray shows some interval improvement in aeration and the patient continued to diurese adequately with IV Lasix 40 mg every 8 hours. The patient is in a negative fluid balance of 3.5 L over the pa st 24 hours. Meanwhile, the patient renal function continues to be stable with a BUN of 64 and a creatinine of 1.59 and the sodium level is at 139. The patient remains on IV cefepime and Levaquin 5 mg every 48 hours. The patient remains on Lovenox 1 mg subcu every 24 hours. The patient is also on IV Solu Medrol 60 mg IV push every 6 hours. No new complaints. Lower extremity edema is improving. No chest pain. No pleurisy. No hemoptysis. No other significant events over the past 24 hours. The patient is responding to the above-mentioned treatment for now. 10/17/2021, the patient is doing well. The patient was weaned down from 10 L to 8 L of oxygen nasal cannula. Chest x-ray finding's are also improving. The patient is diuresing well and overall fluid balance of the -3.7 L over the past 24 hours. The patient has no specific complaints. She reports improvement in her shortness of breath. No chest pain. No cough or sputum production. No fever or chills. The white cell count is at 50 with a hemoglobin of 9.4 and the patient has a sodium level of 135, BUN of 75 and a creatinine of 1.6, serum bicarbs at 30. No chest pain. No other significant events overnight. IV fl uids are currently at KVO. 10/18/2021, the patient is feeling well. No specific complaints. She is currently on 5 L of oxygen nasal cannula with pulse ox of 94%. She continues to have significant diuresis. The patient's overall fluid balance has been more than 5 L negative over the past 24 hours. She is doing extremely well for now. No chest pain. No altered mentation. The white cell count is at 4.2 with hemoglobin of 10.4 and the creatinine is at 1.9 with a BUN of 82. The sodium level is at 137. The patient is showing improvement in the right lung pulmonary infiltration which is probably related to interstitial edema. There is also left upper lobe mass consistent with non-small cell lung cancer. Objective - Vital Signs Vital signs: Vital Signs Temp 97.8 F 10/18/21 08:56 Pulse 72 10/18/21 09:07 Resp 18 10/18/21 08:56 BP 101/62 10/18/21 08:56 Pulse Ox 94 L 10/18/21 08:56 Intake & Output 10/17/21 10/18/21 10/18/21 18:59 06:59 18:59 Intake Total 170 120 Output Total 1250 1300 Balance -1080 -1300 120 Intake: IV 50 0.9NS 50 Oral 120 120 Output: Urine 1250 1300 Other: Voiding Method Indwelling Catheter Indwelling Catheter Indwelling Catheter # Bowel Movements 1 - Exam GENERAL EXAM: Alert , calm and comfortable and the breathing is nonlabored on 5 L of O2 nasal cannula HEAD: Normocephalic. EYES: Normal reaction of pupils, equal size. NOSE: Clear with pink turbinates. THROAT: No erythema or exudates. NECK: No masses, no JVD. CHEST: No chest wall deformity. LUNGS: Equal air entry with few scattered rhonchi more so on the left. CVS: S1 and S2 normal with no audible murmur, regular rhythm. ABDOMEN: No hepatosplenomegaly, normal bowel sounds, no guarding or rigidity. SPINE: No scoliosis or deformity SKIN: No rashes CENTRAL NERVOUS SYSTEM: No focal deficits, tone is normal in all 4 extremities. EXTREMITIES: There is increased bilateral peripheral edema. No clubbing, no cyanosis. Peripheral pulses are intact. - Labs CBC & Chem 7: 10/18/21 09:14 10/18/21 09:14 Labs: Abnormal Lab Results - Last 24 Hours (Table) 10/17/21 10/17/21 10/17/21 Range/Units 04:14 04:14 16:15 WBC (3.8-10.6) k/uL RBC (3.80-5.40) m/uL Hgb (11.4-16.0) gm/dL Hct (34.0-46.0) % RDW (11.5-15.5) % Plt Count (150-450) k/uL Neutrophils # (1.3-7.7) k/uL Carbon Dioxide (22-30) mmol/L BUN (7-17) mg/dL Creatinine (0.52-1.04) mg/dL POC Glucose (mg/dL) 223 H (75-99) mg/dL Hemoglobin A1c 6.1 H (0.0-6.0) % Albumin (3.5-5.0) g/dL Procalcitonin 0.19 H (0.02-0.09) ng/mL 10/17/21 10/18/21 10/18/21 Range/Units 20:07 06:15 09:14 WBC 12.2 H (3.8-10.6) k/uL RBC 3.69 L (3.80-5.40) m/uL Hgb 10.4 L (11.4-16.0) gm/dL Hct 33.3 L (34.0-46.0) % RDW 15.6 H (11.5-15.5) % Plt Count 103 L (150-450) k/uL Neutrophils # 10.3 H (1.3-7.7) k/uL Carbon Dioxide (22-30) mmol/L BUN (7-17) mg/dL Creatinine (0.52-1.04) mg/dL POC Glucose (mg/dL) 202 H 130 H (75-99) mg/dL Hemoglobin A1c (0.0-6.0) % Albumin (3.5-5.0) g/dL Procalcitonin (0.02-0.09) ng/mL 10/18/21 Range/Units 09:14 WBC (3.8-10.6) k/uL RBC (3.80-5.40) m/uL Hgb (11.4-16.0) gm/dL Hct (34.0-46.0) % RDW (11.5-15.5) % Plt Count (150-450) k/uL Neutrophils # (1.3-7.7) k/uL Carbon Dioxide 31 H (22-30) mmol/L BUN 82 H (7-17) mg/dL Creatinine 1.92 H (0.52-1.04) mg/dL POC Glucose (mg/dL) (75-99) mg/dL Hemoglobin A1c (0.0-6.0) % Albumin 3.0 L (3.5-5.0) g/dL Procalcitonin (0.02-0.09) ng/mL Assessment and Plan Plan: Acute on chronic hypoxemic respiratory failure with development of diffuse breath and pulmonary infiltrates/with an area of masslike consolidation in the left upper lobe which could be an area of malignancy as the patient is known to have non-small cell lung cancer/adenocarcinoma of the left lung. The patient is also receiving radiation therapy to that area in the past. Noted the patient was recently in the hospital treated for pneumonia and discharged home to present back within 24 hours with worsening shortness of breath and hypoxemia. CAT scan of the chest was done and reveals a masslike consolidation of left upper lobe in addition to diffuse breath and airspace disease which may be infectious versus malignant in nature with progression of her underlying lung cancer. . The patient had a previous CAT scan of the chest from October 2020 and in comparison, the left upper lobe masses increased in size over the past 1 year. Nevertheless, the diffuse airspace disease seen bilaterally in the right lung and the left lower lobe is of a new onset. Rule out superinfection. Rule out tumor progression. Rule out interstitial edema. The patient is responding to the above-mentioned treatment for now. The chest x-ray findings of improved and the patient is showing improvement in bilateral pulmonary infiltrates essent ially due to diuresis. Pro-calcitonin level is minimally elevated and the patient was also covered with broad-spectrum antibiotics. Today, the patient is on 5 L of O2 nasal cannula, continuous diuresis Paroxysmal atrial fibrillation with RVR at time of admission, current rhythm is sinus COPD Chronic and ongoing tobacco dependence. History of lung cancer, likely a stage IV adenocarcinoma, status post chemoradiation, completed, February 2021. The patient was diagnosed with lung cancer 2018. Please refer to the details as mentioned above regarding the patient's history of non-small cell lung cancer which is probably an adenocarcinoma. History of protein C&S deficiency. History of DVT/pulmonary embolism. Hyperlipidemia. Hypothyroidism. History of seizure disorder. History of depression. Chronic kidney disease, creatinine stable for now Troponin leak, nonspecific, Plan O2 at 5 L, continue to wean Continue bronchodilators Prednisone burst taper oral Levaquin Continue IV Lasix at a dose of 40 mg every 12 hours and monitor the fluid balance and electrolytes Continue Lovenox 200 mg subcu on a daily basis Reviewed the old computed tomography scan of the chest and there is obvious concern for disease progression We'll give the patient another 24 hours here in the ICU for further optimization and diuresis and antibiotic treatment. At the pulmonary infiltrates remain u nchanged, she may need a bronchoscopy and biopsy. I do not see the need for biopsy at this point especially the patient is showing signs of improvement. The chest x-ray showing improvement in the infiltration especially the one on the right. follow-up chest x-ray from today showing improvement in about pulmonary infiltrates.. The patient still has a left upper lobe opacity consistent with malignancy. Wean down the FiO2 as tolerated, currently on 5 L We'll continue to follow make further recommendations based on her progress.
[2021-10-18] MEDS: MONTELUKAST 10 MG TAB PO SCH (11:41)
[2021-10-18 16:24] LABS: Glucose,Whole Blood 276 mg/dL (75-99)
[2021-10-18] MEDS: FUROSEMIDE 40 MG TAB PO SCH (16:52)
[2021-10-18] MEDS: HYDROcodone/APAP 10-325MG 1 EACH TAB PO PRN (16:54)
[2021-10-18 20:12] LABS: Glucose,Whole Blood 214 mg/dL (75-99)
[2021-10-18] MEDS: GABAPENTIN 300 MG CAP PO SCH (20:19)
[2021-10-18] MEDS: PANTOPRAZOLE SODIUM 40 MG GRANULE PKT PO SCH (20:19)
[2021-10-18] MEDS: ASPIRIN 325 MG TAB PO SCH (20:19)
[2021-10-19] MEDS: HYDROcodone/APAP 10-325MG 1 EACH TAB PO PRN ×3 (03:41→21:52)
[2021-10-19 05:55] LABS: Glucose,Whole Blood 95 mg/dL (75-99)
[2021-10-19] MEDS: SODIUM CHLORIDE 0.9% 1,000 ML IV SCH (06:13)
[2021-10-19] MEDS: INSULIN ASPART (NovoLOG) 100 UNIT/ML VIAL SQ SCH ×4 (06:13→20:14)
[2021-10-19] MEDS: ATORVASTATIN 40 MG TAB PO SCH (06:14)
[2021-10-19] MEDS: FOLIC ACID-VIT B COMPLEX-VIT C 1 CAP PO SCH (06:14)
[2021-10-19] MEDS: LEVOTHYROXINE 25 MCG TAB PO SCH (06:14)
[2021-10-19] MEDS: CITALOPRAM HYDROBROMIDE 20 MG TAB PO SCH (06:14)
[2021-10-19] MEDS: FUROSEMIDE 40 MG TAB PO SCH ×2 (08:51→16:39)
[2021-10-19] MEDS: ENOXAPARIN 100 MG/ML SYRINGE SQ SCH (08:51)
[2021-10-19] MEDS: SENNOSIDES-DOCUSATE SODIUM 1 EACH TAB PO SCH (08:51)
[2021-10-19] MEDS: BACLOFEN 10 MG TAB PO SCH ×2 (08:51→20:14)
[2021-10-19] MEDS: NICOTINE 14MG/24HR PATCH TRANSDERM SCH (08:51)
[2021-10-19] MEDS: DILTIAZEM CD 180 MG CAP.ER.24H PO SCH (08:51)
[2021-10-19] MEDS: predniSONE 20 MG TAB PO SCH (08:51)
[2021-10-19] MEDS: SYMBICORT 160-4.5 MCG INHALER INHALATION SCH (08:52)
[2021-10-19] MEDS: IPRATROPIUM-ALBUTEROL 3 ML NEB INHALATION SCH ×4 (08:52→21:16)
[2021-10-19 09:10] LABS: Albumin 3.1 g/dL (3.5-5.0); Calcium 8.3 mg/dL (8.4-10.2); Potassium 3.6 mmol/L (3.5-5.1); Total Bilirubin 0.5 mg/dL (0.2-1.3); Total Protein 6.8 g/dL (6.3-8.2)
[2021-10-19 09:19] LABS: HCT 32.8 % (34.0-46.0); Hypochromasia Slight; MCH 27.6 pg (25.0-35.0); MCHC 30.4 g/dL (31.0-37.0); MCV 90.7 fL (80.0-100.0); Mean Platelet Volume 9.2; RBC 3.61 m/uL (3.80-5.40); RDW 15.1 % (11.5-15.5); WBC 11.1 k/uL (3.8-10.6)
[2021-10-19 10:26] LABS: Platelet Count 92 k/uL (150-450)
--- NOTE | 2021-10-19 11:43 | P.PN ---
Subjective Progress Note Date: 10/19/21 This is a morbidly obese 65-year-old female patient with a body mass index of 54. The patient was admitted earlier for shortness of breath and the patient was discharged home on 10/13/2021 to be readmitted within 24 hours following her discharge because of worsening shortness of breath and acute hypoxemic respiratory failure. I had the chance to evaluate this patient another day of her discharge. At that time, the patient reported improvement in her shortness of breath. I came to find other the patient has underlying lung cancer under the care of Dr. Maria and the patient has received a combination of chemoradiation therapy in the past and she also has a remote history of DVT and pulmonary embolism noted on anticoagulation and she was receiving Lovenox therapeutic dose during her last hospital stay. The patient had a negative, COVID 19 testing in a negative influenza testing. The patient during her hospital stay and was treated with IV Rocephin. She was given IV Solu Medrol switched to prednisone burst taper. She was given Lasix and she was switched to oral Lasix 20 mg by mouth twice a day at time of discharge. The chest x-ray was showing significant opacification of the left lung and ultrasound the chest showed minimal amount of pleural fluid that was not amenable for thoracentesis. Echo of the heart showed a normal ejection fraction of 55-60% and the patient was found to have mild to moderate mitral regurgitation. Her pro-calcitonin level during her last admission was at 4.09. The patient came into the emergency department having difficulties breathing. She was hypoxic and on 6 L of O2 her pulse ox was 83%. She was placed on high flow oxygen and her saturation gradually improved. Because of increased work of breathing, subsequent was switched to a BiPAP. She was in A. fib RVR and she converses. The chest x-ray showed bilateral pulmonary infiltrates and following that the CAT scan of the chest was done that showed no evidence of any pulmonary embolism. There is a left upper lobe mass and there is also bilateral airspace disease/consolidation and the consolidation because much more dense and there is breath diseases dense in the left upper lobe which could be a underlying malignancy. At the same time, there was suspected hilar adenopathy more so on the right. The tracheobronchial tree was patent. There was some indeterminate pulmonary nodules consistent with metastatic disease and there was some underlying splenomegaly. The patient's white cell count remains elevated at 16.2 with a hemoglobin of 10.8, platelet count was 115 during this current admission, the BM was at 56 with a creatinine of 1.47 and the sodium level of 139, proBNP level was 3850 and the troponin level was at 0.141, normal LFTs, calcium level was 8.0, lactic acid level was at 2.8. The patient was started again on DuoNeb nebulized treatments around the clock, IV Solu-Medrol, and she was given Levaquin. In terms of lung cancer, the patient was diagnosed having a left lung mass measuring CT chest 08/12/17 revealed 1.5x1.7cm left hilar lesion, on 08/21/2017 PET showed enlarging left lung nodule (compared to PET scan in 2014) with intermediate uptake. Repeat CT chest 11/17/18 revealed revealed 1.8x2.6cm mass in left which increased in size compared to prior CT scan. Brain MRI 11/17/18, done for dizzyness, was negative for metastatic disease. 11/23/18 she had a bronchoscopy, transbronchial biopsy of left lower lobe, atypical cells suggestive of low grade pulmonary adenocarcinoma. Repeat CT 12/10/18 revealed 2.9cm LLL mass. She was evaluated by Throracic surgeon and was felt not to be a surgical candiate due to her co-morbidities and ended up having SBRT. She continued to follow up with Dr. Swann after radiation. PET 05/10 revealed suspicious uptake and increasing size of left hilar node and new small right lung nodules. She was referred back to Oncology 08/20/20. Repeat PET 09/03/20 revealed increasing size of previously irradiated area, SUV remained stable at 9, no additional suspicious finding. Bronchoscopy, biopsy was suspicious for atypical cells. It was decided by Rad/Onc to wait and repeat PET. 12/10/20 repeat PET revealed suspicious SUV in left hilar region with more solid component, representing local recurrence. A left breast lesion was evaluated by Dr. Swann with mammograms and U/S which came back negative. 01/06/21 she started concurrent weekly taxol/carboplatin with radiation completed on 02/17/21. 04/29/21 repeat PET scan revealed stable findings. It was decided not to proceed with immunotherapy due to connective tissue disease. She has Sjogrens disease, on hydroxychloroquine. She is lupus anticoagulant positive, was on warfarin, now on therapeutic dose of lovenox for the same. Note that her ceramic painter is Dr. Quick. On today's evaluation of 10/15/2021, seeing the patient for a follow-up. The patient is feeling slightly better compared to yesterday. The patient was on BiPAP throughout the night the pressure of 12/60 cm of water and FiO2 of 50%. This morning, she was taken off the BiPAP and the patient was placed on 14 L of O2 nasal cannula and she is being gradually weaned off. She is able to maintain a saturation above 88%. She is afebrile. She is hemodynamically stable. She was subjected to a combination of antibiotics and the patient was given a combination of Levaquin and cefepime. The patient's pro-calcitonin level was 0.34. The repeat chest x-ray from today still showing diffuse but the pulmonary infiltrates with probably some improvement in infiltrates on the right and the left lung base. Noted the patient was also being diuresis with IV Lasix. The patient's overall fluid balance is -3.6 L over the past 12 hours and the patient is headed towards more diuresis over the next 24 hours. The patient is also on IV Solu-Medrol. I was able to retrieve an old computed tomography scan of the chest that was done at [facility] from October 2020. At that time, the patient had a left upper lobe mass and several nodular densities in the left upper lobe and the right lung consistent with metastatic disease. Nevertheless, the right lung was fairly of any acute pulmonary infiltration. Note that the mass in the left upper lobe has grown in size in comparison. As such, there is obvious concern for progression of her underlying non-small cell lung cancer. She remains on IV heparin and the patient has had some troponin leaks. The patient will be taken off the IV heparin and the patient will be switched back to Lovenox as a long-term anticoagulants. 10/16/2021, the patient is doing better. The patient's been weaned down to 10 L of O2 nasal cannula. The chest x-ray shows some interval improvement in aeration and the patient continued to diurese adequately with IV Lasix 40 mg every 8 hours. The patient is in a negative fluid balance of 3.5 L over the pa st 24 hours. Meanwhile, the patient renal function continues to be stable with a BUN of 64 and a creatinine of 1.59 and the sodium level is at 139. The patient remains on IV cefepime and Levaquin 5 mg every 48 hours. The patient remains on Lovenox 1 mg subcu every 24 hours. The patient is also on IV Solu Medrol 60 mg IV push every 6 hours. No new complaints. Lower extremity edema is improving. No chest pain. No pleurisy. No hemoptysis. No other significant events over the past 24 hours. The patient is responding to the above-mentioned treatment for now. 10/17/2021, the patient is doing well. The patient was weaned down from 10 L to 8 L of oxygen nasal cannula. Chest x-ray finding's are also improving. The patient is diuresing well and overall fluid balance of the -3.7 L over the past 24 hours. The patient has no specific complaints. She reports improvement in her shortness of breath. No chest pain. No cough or sputum production. No fever or chills. The white cell count is at 50 with a hemoglobin of 9.4 and the patient has a sodium level of 135, BUN of 75 and a creatinine of 1.6, serum bicarbs at 30. No chest pain. No other significant events overnight. IV fl uids are currently at KVO. 10/18/2021, the patient is feeling well. No specific complaints. She is currently on 5 L of oxygen nasal cannula with pulse ox of 94%. She continues to have significant diuresis. The patient's overall fluid balance has been more than 5 L negative over the past 24 hours. She is doing extremely well for now. No chest pain. No altered mentation. The white cell count is at 4.2 with hemoglobin of 10.4 and the creatinine is at 1.9 with a BUN of 82. The sodium level is at 137. The patient is showing improvement in the right lung pulmonary infiltration which is probably related to interstitial edema. There is also left upper lobe mass consistent with non-small cell lung cancer. 10/19/2021, the patient continues to show further improvement. The patient remains in a negative fluid balance as the patient is being diuresis with IV Lasix. This morning, she is on 3 L O2 nasal cannula. Overall fluid balance is -2.3 L over the past 24 hours. She has an APAP machine which she is utilizing overnight. No significant cough sputum production chest tightness or wheezing. The patient remains on Levaquin as an empiric antibiotic coverage. The patient remains on Lasix and the patient is receiving 40 mg by mouth twice a day. The patient is also on a prednisone burst taper. Objective - Vital Signs Vital signs: Vital Signs Temp 97.8 F 10/19/21 08:44 Pulse 63 10/19/21 08:44 Resp 18 10/19/21 08:44 BP 104/67 10/19/21 08:44 Pulse Ox 94 L 10/19/21 08:44 Intake & Output 10/18/21 10/19/21 10/19/21 18:59 06:59 18:59 Intake Total 360 1440 118 Output Total 250 1100 Balance 110 340 118 Weight 127.5 kg Intake: Oral 360 1440 118 Output: Urine 250 1100 Other: Voiding Method Indwelling Catheter Indwelling Catheter Indwelling Catheter - Exam GENERAL EXAM: Alert , calm and comfortable and the breathing is nonlabored on 3 L of O2 nasal cannula HEAD: Normocephalic. EYES: Normal reaction of pupils, equal size. NOSE: Clear with pink turbinates. THROAT: No erythema or exudates. NECK: No masses, no JVD. CHEST: No chest wall deformity. LUNGS: Equal air entry with few scattered rhonchi more so on the left. CVS: S1 and S2 normal with no audible murmur, regular rhythm. ABDOMEN: No hepatosplenomegaly, normal bowel sounds, no guarding or rigidity. SPINE: No scoliosis or deformity SKIN: No rashes CENTRAL NERVOUS SYSTEM: No focal deficits, tone is normal in all 4 extremities. EXTREMITIES: There is increased bilateral peripheral edema. No clubbing, no cyanosis. Peripheral pulses are intact. - Labs CBC & Chem 7: 10/19/21 08:28 10/19/21 08:28 Labs: Abnormal Lab Results - Last 24 Hours (Table) 10/18/21 10/18/21 10/19/21 Range/Units 16:22 20:11 08:28 WBC 11.1 H (3.8-10.6) k/uL RBC 3.61 L (3.80-5.40) m/uL Hgb 10.0 L (11.4-16.0) gm/dL Hct 32.8 L (34.0-46.0) % MCHC 30.4 L (31.0-37.0) g/dL Plt Count 92 L (150-450) k/uL Carbon Dioxide (22-30) mmol/L BUN (7-17) mg/dL Creatinine (0.52-1.04) mg/dL POC Glucose (mg/dL) 276 H 214 H (75-99) mg/dL Calcium (8.4-10.2) mg/dL Albumin (3.5-5.0) g/dL 10/19/21 Range/Units 08:28 WBC (3.8-10.6) k/uL RBC (3.80-5.40) m/uL Hgb (11.4-16.0) gm/dL Hct (34.0-46.0) % MCHC (31.0-37.0) g/dL Plt Count (150-450) k/uL Carbon Dioxide 34 H (22-30) mmol/L BUN 79 H (7-17) mg/dL Creatinine 1.74 H (0.52-1.04) mg/dL POC Glucose (mg/dL) (75-99) mg/dL Calcium 8.3 L (8.4-10.2) mg/dL Albumin 3.1 L (3.5-5.0) g/dL Assessment and Plan Plan: Acute on chronic hypoxemic respiratory failure with development of diffuse breath and pulmonary infiltrates/with an area of masslike consolidation in the left upper lobe which could be an area of malignancy as the patient is known to have non-small cell lung cancer/adenocarcinoma of the left lung. The patient is also receiving radiation therapy to that area in the past. Noted the patient was recently in the hospital treated for pneumonia and discharged home to present back within 24 hours with worsening shortness of breath and hypoxemia. CAT scan of the chest was done and reveals a masslike consolidation of left upper lobe in addition to diffuse breath and airspace disease which may be infectious versus malignant in nature with progression of her underlying lung cancer. . The patient had a previous CAT scan of the chest from October 2020 and in comparison, the left upper lobe masses increased in size over the past 1 year. Nevertheless, the diffuse airspace disease seen bilaterally in the right lung and the left lower lobe is of a new onset. Rule out superinfection. Rule out tumor progression. Rule out interstitial edema. The patient is responding to the above-mentioned treatment for now. The chest x-ray findings of improved and the patient is showing improvement in bilateral pulmonary infiltrates essentially due to diuresis. Pro-calcitonin level is minimally elevated and the patient was also covered with broad-spectrum antibiotics. Today, the patient is on 3 L of O2 nasal cannula, continuous diuresis Paroxysmal atrial fibrillation with RVR at time of admission, current rhythm is sinus COPD Chronic and ongoing tobacco dependence. History of lung cancer, likely a stage IV adenocarcinoma, status post chemoradiation, completed, February 2021. The patient was diagnosed with lung cancer 2017. Please refer to the details as mentioned above regarding the patient's history of non-small cell lung cancer which is probably an adenocarcinoma. History of protein C&S deficiency. History of DVT/pulmonary embolism. Hyperlipidemia. Hypothyroidism. History of seizure disorder. History of depression. Chronic kidney disease, creatinine stable for now Troponin leak, nonspecific, Plan O2 at 3 L, continue to wean Continue bronchodilators Oral diuretics and the patient is currently on Lasix 40 mg twice a day and the patient has diuresed adequately. Prednisone burst taper oral Levaquin Continue Lovenox 200 mg subcu on a daily basis Reviewed the old computed tomography scan of the chest and there is obvious concern for disease progression in terms of her lung cancer. Nevertheless, the acute decompensation was mainly due to CHF/fluid overload and the patient further diuresis. The patient is also complaining of prednisone burst taper and a course of antibiotics. I'll likely to be related to an infection and I favor interstitial edema/fluid overload with subsequent respiratory decompensation. We'll continue to follow make further recommendations based on her progress.
[2021-10-19 11:55] LABS: Glucose,Whole Blood 134 mg/dL (75-99)
[2021-10-19] MEDS: MONTELUKAST 10 MG TAB PO SCH (11:57)
--- NOTE | 2021-10-19 12:17 | P.PN ---
Subjective Progress Note Date: 10/19/21 56-year-old lady with history of carcinoma of the lung presented to hospital with hypoxia shortness of breath and respiratory distress. While in the ER she apparently had episode of atrial fibrillation that was transient and self- limited. there is no EKG or rhythm strips of this episode. She remains in normal sinus rhythm and has not had any reports episodes of atrial fib or ectopy. Patient is examined resting comfortably in the chair today talking to her daughter on the phone. She states she's feeling good today. Patient is on 3 L nasal cannula which is lower than she's been asked home. And tolerating it well. She states she walks 600 feet already this morning. She denies chest pain or shortness of breath. Creatinine continues to improve creatinine is 1.7 today. lower extremity edema has also improved she has mild pitting edema. She is encouraged to keep her feet up as much as possible. Patient is anticipating she will be discharge in the next 24 hours to rehab. At this time there is been no documented tachycardia and atrial fibrillation. Will continue with current cardiac medications and follow on a as needed basis Objective - Vital Signs Vital signs: Vital Signs Temp 97.8 F 10/19/21 08:44 Pulse 63 10/19/21 08:44 Resp 18 10/19/21 08:44 BP 104/67 10/19/21 08:44 Pulse Ox 94 L 10/19/21 08:44 Intake & Output 10/18/21 10/19/21 10/19/21 18:59 06:59 18:59 Intake Total 360 1440 118 Output Total 250 1100 Balance 110 340 118 Weight 127.5 kg Intake: Oral 360 1440 118 Output: Urine 250 1100 Other: Voiding Method Indwelling Catheter Indwelling Catheter Indwelling Catheter - Exam PHYSICAL EXAM: VITAL SIGNS: Reviewed. GENERAL: Well-developed in no acute distress. HEENT: Head is normocephalic. Pupils are equal, round. Sclerae anicteric. Mucous membranes of the mouth are moist. NECK: Supple. No JVD or thyromegaly RESPIRATORY: Respirations even and unlabored. Lungs diminished to auscultation bilaterally.patient remains on 5 L high flow CARDIO: Regular rate and rhythm. S1 and S2 heard. No murmur or gallops. EXTREMITIES: Normal range of motion. No clubbing or cyanosis. Peripheral pulses intact. mild bilateral lower extremity edema NEURO: Orientated to person, time, mood is appropriate - Labs CBC & Chem 7: 10/19/21 08:28 10/19/21 08:28 Labs: Abnormal Lab Results - Last 24 Hours (Table) 10/18/21 10/18/21 10/19/21 Range/Units 16:22 20:11 08:28 WBC 11.1 H (3.8-10.6) k/uL RBC 3.61 L (3.80-5.40) m/uL Hgb 10.0 L (11.4-16.0) gm/dL Hct 32.8 L (34.0-46.0) % MCHC 30.4 L (31.0-37.0) g/dL Plt Count 92 L (150-450) k/uL Carbon Dioxide (22-30) mmol/L BUN (7-17) mg/dL Creatinine (0.52-1.04) mg/dL POC Glucose (mg/dL) 276 H 214 H (75-99) mg/dL Calcium (8.4-10.2) mg/dL Albumin (3.5-5.0) g/dL 10/19/21 Range/Units 08:28 WBC (3.8-10.6) k/uL RBC (3.80-5.40) m/uL Hgb (11.4-16.0) gm/dL Hct (34.0-46.0) % MCHC (31.0-37.0) g/dL Plt Count (150-450) k/uL Carbon Dioxide 34 H (22-30) mmol/L BUN 79 H (7-17) mg/dL Creatinine 1.74 H (0.52-1.04) mg/dL POC Glucose (mg/dL) (75-99) mg/dL Calcium 8.3 L (8.4-10.2) mg/dL Albumin 3.1 L (3.5-5.0) g/dL Assessment and Plan Assessment: elevated troponin secondary to hypoxia and supplying demand mismatch Hypertension Possible episode of self eliminating atrial fibrillation Non-arrhythmic moderate mitral valve insufficiency Plan: Continue with Lasix by mouth 40 mg twice a day continue with Cardizem by mouth Continue on current cardiac medications Patient is anticipating discharge in the next 24 hours to rehab. From a cardiac standpoint we will sign off at this time and be available on a as needed basis The above impression and plan of care have been discussed and directed by the signing physician. Louann Rosario, nurse practitioner, acting as scribe for signing physician.
--- NOTE | 2021-10-19 12:55 | P.PN ---
Subjective Progress Note Date: 10/19/21 HISTORY OF PRESENT ILLNESS 56 year-old morbidly obese female one of Dr. 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 fib, patient also known to have non-small cell see of the lung has been on chemotherapy postradiation, she had DVT and PE as well history of obstructive sleep apnea and recurrent TIA who was hospitalized in October 06 till October 14 for severe dyspnea and shortness of breath and respiratory failure was seen cardiology and pulmonary along with oncology treated for sepsis with left-sided pneumonia along with acute hypoxic respiratory failure was initially on BiPAP and transferred to Ventimask and then nasal cannula. Patient was on steroids along with antibiotics and updraft treatment regular basis all along until the day of discharge. Patient presented to the emergency department by EMS with worsening dyspnea and respiratory failure found to have severe hypoxia require BiPAP was started on IV steroids along with updraft treatment seen pulmonary quickly in the emergency department. With a high risk of pulmonary embolism patient had A. fib patient was started on heparin drip her chest x-ray showed bilateral pulmonary infiltrate CAT scan showed no evidence of any pulmonary embolism at the time but showed left upper lobe mass is also bilaterallydisease in consultation consistent with pneumonia beside her underlying malignancy and probably obstructive pneumonitis. Patient also had some hilar adenopathy of the right side the tracheobronchial tree was patent white blood cell was 16,000 hemoglobin 10.8 creatinine was 1.47 BNP was 3815 with troponin mildly elevated at 0.141, also lactic acid was 2.8 at the time. Patient was started on DuoNeb, Solu-Medr ol and giving Levaquin. Patient was hospitalized with acute hypoxic respiratory failure with significant failure and less than 24 hours before discharge. Patient be admitted will be seen cardiology as well because of elevated troponin and A. fib. 10/15: Patient is seen today in the intensive care unit. She is off BiPAP and on high flow nasal cannula at 14 L with pulse ox 90%. She has been seen by pulmonary medicine and also cardiology. Elevated troponin secondary to hypoxia. Echocardiogram has been ordered. Repeat blood work reveals WBC 14.5, hemoglobin 9.5, platelet count 94. Electrolytes normal. BUN 54 and creatinine 1.62. Capillary blood glucose running between 148 and 156. Repeat chest x-ray reveals diffuse right lung infiltrates and left basilar infiltrates with left midlung mass or masslike consolidation are demonstrated. No significant change from one day earlier. Heparin drip has been discontinued. Patient is currently on IV antibiotics the form of cefepime and Levaquin. Consult added for oncology. 10/16: Patient is seen today in the intensive care unit with plan to maintain another 24 hours here. Patient states that she is feeling much better today.she is on 10 L of oxygen by nasal cannula but feels her breathing is much improved. Pulse ox is 93%. She's been afebrile, heart rate in the 60s to 80s, blood pressure 101/58. Repeat blood work reveals WBC 20, hemoglobin 10.1, platelet count 113. Electrolytes normal. BUN 64 creatinine 1.59. Capillary blood glucose running between 144 and 278. Chest x-ray reveals diffuse right lung infiltrates and left basilar infiltrates with left midlung mass or masslike consolidation all redemonstrated. No significant change. 10/17: Patient remains in the intensive care unit. She is currently on oxygen at 8 L nasal cannula with pulse ox of 98%. She has been afebrile, heart rate in 60s and 70s, respiratory rate 24, blood pressure 117/63. Repeat blood work reveals WBC 15.3, hemoglobin 9.4, platelet count 104. Sodium 135, potassium 4.0, BUN 75, creatinine 1.64. Capillary blood glucose running between 142 and 274. Patient does not have history of diabetes. A1c ordered. Pulmonary medicine has discontinued Levaquin, cefepime, IV Solu-Medrol and transitioned to oral prednisone. Patient is complaining of constipation for which milk of magnesia and prune juice to be given today and stool softener ordered scheduled daily. Patient is also followed by cardiology and IV Lasix decreased to 40 mg every 12 hours continue Cardizem and continue telemetry monitoring. Anticipate patient will be transferred out of the intensive care unit today. Chest x-ray reveals diffuse right lung infiltrates and left basilar infiltrates and/or scarring with left midlung mass or masslike consolidation all redemonst rated. No significant change. Consider bronchoscopy evaluation. 10/18: Patient is doing slightly better down to 4 L of O2, continue updraft treatment, patient is up in the chair today should be needed off and transitional into prednisone from Solu-Medrol, her Mccann catheter still in will try to remove Mccann catheter today encourage physical therapy and hopefully prepare for been transferred to [facility] on Wednesday. Had long discussion with pulmonary apparently with infiltrate she had on the lef t side and with the big mass on the opposite side patient has been having recurrent pulmonary edema on and off with worsening symptom related to her CA I believe should have more talk with her oncologist about with the plan on the long run. 10/19: She is doing much better today her oxygen sat has improved significantly, the consultation and the interstitial fluid retention has improved significantly the last few days. Still seen pulmonary with a current management patient hopefully will be able to go to rehab by tomorrow. REVIEW OF SYSTEMS Constitutional: Mildly overweight, no fever, no chills. EENT: No headache. No blurred vision or double vision, no loss of vision. No loss of Hearing, no ringing in the ears, no dizziness. No nasal drainage or congestion. No epistaxis. No sore throat. Lungs: No shortness of breath mild wheezes. Cardiovascular: No chest pain, no lower extremity edema. No palpitations. No paroxysmal nocturnal dyspnea. No orthopnea. No lightheadedness or dizziness. No syncopal episodes. Abdominal: No abdominal pain. No nausea, vomiting. No diarrhea. No constipation. No bloody or tarry stools.. No loss of appetite. Genitourinary: No dysuria, increased frequency, urgency. No urinary retention- Mccann in place. Musculoskeletal: Generalized myalgia and arthralgia with abnormal balance and gait slight weakness in the right side. Integumentary: No wounds, no lesions. No rash or pruritus. No unusual bruising. No change in hair or nails. Neurologic: Positive weakness of the right side along with speech problem and aphasia without dysphagia currently Psychiatric: No depression. No anxiety. No mood swings. Endocrine: No abnormal blood sugars. No weight change. No excessive sweating or thirst. No cold intolerance. PHYSICAL EXAMINATION Gen: This is a morbidly obese 56-year-old female. She is resting in the ICU bed and appears to be comfortable and in no acute distress HEENT: Head is atraumatic, normocephalic. Pupils equal, round. Sclerae is anicte genesis. NECK: Supple. No JVD. No lymphadenopathy. No thyromegaly. LUNGS: Decreased breath sounds bilaterally. HEART: Regular rate and rhythm. ABDOMEN: Soft. Bowel sounds are present. No masses. No tenderness. EXTREMITIES: Trace edema decreased pulse bilaterally mild osteoarthritis both knees NEUROLOGICAL: Patient is awake, alert and oriented x3. Cranial nerves 2 through 12 are grossly intact. ASSESSMENT AND PLAN 1 acute on chronic hypoxic respiratory failure with diffuse infiltrate with left upper lobe pneumonia with possible obstructive pneumonitis with the large mass in the left upper lobe. Down on O2 to 4 L, continue prednisone, continue Pulmicort continue cefepime and Levaquin at this point. 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 2 COPD exacerbation: Patient is doing slightly but better with less prednisone along with her updraft treatment. We will decrease steroid keep patient on maintenance dose for longer time. 3 consolidation and obstructive pneumonia: Pulmonary consult appreciated. Still on IV diuretics and antibiotics. 4 early sepsis: Most likely caused by pneumonia, blood culture was done patient be on IV antibiotics for now. 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 There is no solid management at this point for cancer. 6 Atrial fibrillation with rapid ventricular response, A. fib is much better control on medical management. 7 chronic pain syndrome: Remain on hydrocodone 10/325 mg 3 times a day. 8 coagulopathy with DVT and pulmonary embolism, patient doing Lovenox 200 mg subcutaneous daily. 9 acute kidney injury with chronic kidney disease stage 3. Kidney function has improved some at this point. 10 history of seizure: Has been on Keppra 750 mg twice a day resume medication. 11 hypothyroidism: Continue levothyroxine 25 g daily. 12 hyperlipidemia: Remain on atorvastatin 40 mg a day we'll resume medication. 13 chronic neuropathy: Most likely peripheral neuropathy might be chemotherapy related, remain on gabapentin 300 mg daily at bedtime. 14 severe GERD/GI prophylaxis: Patient remain on pantoprazole 20 mg daily. DISCHARGE PLAN Most likely will be going to subacute rehab on Wednesday. Objective - Vital Signs Vital signs: Vital Signs Temp 98.0 F 10/19/21 12:06 Pulse 80 10/19/21 12:25 Resp 18 10/19/21 12:06 BP 106/62 10/19/21 12:06 Pulse Ox 94 L 10/19/21 12:06 Intake & Output 10/18/21 10/19/21 10/19/21 18:59 06:59 18:59 Intake Total 360 1440 118 Output Total 250 1100 Balance 110 340 118 Weight 127.5 kg Intake: Oral 360 1440 118 Output: Urine 250 1100 Other: Voiding Method Indwelling Catheter Indwelling Catheter Indwelling Catheter - Labs CBC & Chem 7: 10/19/21 08:28 10/19/21 08:28 Labs: Abnormal Lab Results - Last 24 Hours (Table) 10/18/21 10/18/21 10/19/21 Range/Units 16:22 20:11 08:28 WBC 11.1 H (3.8-10.6) k/uL RBC 3.61 L (3.80-5.40) m/uL Hgb 10.0 L (11.4-16.0) gm/dL Hct 32.8 L (34.0-46.0) % MCHC 30.4 L (31.0-37.0) g/dL Plt Count 92 L (150-450) k/uL Carbon Dioxide (22-30) mmol/L BUN (7-17) mg/dL Creatinine (0.52-1.04) mg/dL POC Glucose (mg/dL) 276 H 214 H (75-99) mg/dL Calcium (8.4-10.2) mg/dL Albumin (3.5-5.0) g/dL 10/19/21 10/19/21 Range/Units 08:28 11:50 WBC (3.8-10.6) k/uL RBC (3.80-5.40) m/uL Hgb (11.4-16.0) gm/dL Hct (34.0-46.0) % MCHC (31.0-37.0) g/dL Plt Count (150-450) k/uL Carbon Dioxide 34 H (22-30) mmol/L BUN 79 H (7-17) mg/dL Creatinine 1.74 H (0.52-1.04) mg/dL POC Glucose (mg/dL) 134 H (75-99) mg/dL Calcium 8.3 L (8.4-10.2) mg/dL Albumin 3.1 L (3.5-5.0) g/dL
[2021-10-19 16:18] LABS: Glucose,Whole Blood 264 mg/dL (75-99)
[2021-10-19] MEDS: GABAPENTIN 300 MG CAP PO SCH (20:14)
[2021-10-19] MEDS: ASPIRIN 325 MG TAB PO SCH (20:14)
[2021-10-19 20:18] LABS: Glucose,Whole Blood 293 mg/dL (75-99)
[2021-10-19] MEDS: PANTOPRAZOLE SODIUM 40 MG GRANULE PKT PO SCH (20:51)
[2021-10-20 04:59] LABS: Glucose,Whole Blood 92 mg/dL (75-99)
[2021-10-20] MEDS: SODIUM CHLORIDE 0.9% 1,000 ML IV SCH (05:27)
[2021-10-20] MEDS: FOLIC ACID-VIT B COMPLEX-VIT C 1 CAP PO SCH (06:27)
[2021-10-20] MEDS: LEVOTHYROXINE 25 MCG TAB PO SCH (06:27)
[2021-10-20] MEDS: CITALOPRAM HYDROBROMIDE 20 MG TAB PO SCH (06:27)
[2021-10-20] MEDS: ATORVASTATIN 40 MG TAB PO SCH (06:27)
[2021-10-20 06:31] LABS: Glucose,Whole Blood 87 mg/dL (75-99)
[2021-10-20] MEDS: INSULIN ASPART (NovoLOG) 100 UNIT/ML VIAL SQ SCH ×2 (06:38→11:42)
[2021-10-20] MEDS: SYMBICORT 160-4.5 MCG INHALER INHALATION SCH (08:50)
[2021-10-20] MEDS: IPRATROPIUM-ALBUTEROL 3 ML NEB INHALATION SCH ×2 (08:50→11:57)
[2021-10-20] MEDS: ENOXAPARIN 100 MG/ML SYRINGE SQ SCH (09:50)
[2021-10-20] MEDS: predniSONE 20 MG TAB PO SCH (09:50)
[2021-10-20] MEDS: DILTIAZEM CD 180 MG CAP.ER.24H PO SCH (09:50)
[2021-10-20] MEDS: NICOTINE 14MG/24HR PATCH TRANSDERM SCH (09:50)
[2021-10-20] MEDS: FUROSEMIDE 40 MG TAB PO SCH ×2 (09:50→15:28)
[2021-10-20] MEDS: BACLOFEN 10 MG TAB PO SCH (09:51)
[2021-10-20] MEDS: SENNOSIDES-DOCUSATE SODIUM 1 EACH TAB PO SCH (09:52)
[2021-10-20 11:06] VITALS: RESP 20
--- NOTE | 2021-10-20 11:08 | P.DS ---
Providers Date of admission: 10/14/21 13:23 Expected date of discharge: 10/20/21 Attending physician: Edin Elizondo Consults: 10/14/21 13:24 Consult Physician Urgent Consulting Provider: Wes Brooks Consult Reason/Comments: hypoxic resp failure, bipap dependance, CAP Do you want consulting provider notified?: Yes 10/15/21 09:25 Consult Physician Routine Consulting Provider: Eduardo Simmons Consult Reason/Comments: lung ca Do you want consulting provider notified?: Yes Primary care physician: Lise Urias [facility] Course: HISTORY OF PRESENT ILLNESS 56 year-old morbidly obese female one of Dr. 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 fib, patient also known to have non-small cell see of the lung has been on chemotherapy postradiation, she had DVT and PE as well history of obstructive sleep apnea and recurrent TIA who was hospitalized in October 06 till October 14 for severe dyspnea and shortness of breath and respiratory failure was seen cardiology and pulmonary along with oncology treated for sepsis with left-sided pneumonia along with acute hypoxic respiratory failure was initially on BiPAP and transferred to Ventimask and then nasal cannula. Patient was on steroids along with antibiotics and updraft treatment regular basis all along until the day of discharge. Patient presented to the emergency department by EMS with worsening dyspnea and respiratory failure found to have severe hypoxia require BiPAP was started on IV steroids along with updraft treatment seen pulmonary quickly in the emergency department. With a high risk of pulmonary embolism patient had A. fib patient was started on heparin drip her chest x-ray showed bilateral pulmonary infiltrate CAT scan showed no evidence of any pulmonary embolism at the time but showed left upper lobe mass is also bilaterallydisease in consultation consistent with pneumonia beside her underlying malignancy and probably obstructive pneumonitis. Patient also had some hilar adenopathy of the right side the tracheobronchial tree was patent white blood cell was 16,000 hemoglobin 10.8 creatinine was 1.47 BNP was 3815 with troponin mildly elevated at 0.141, also lactic acid was 2.8 at the time. Patient was started on DuoNeb, Solu- Medrol and giving Levaquin. Patient was hospitalized with acute hypoxic respiratory failure with significant failure and less than 24 hours before discharge. Patient be admitted will be seen cardiology as well because of elevated troponin and A. fib. 10/15: Patient is seen today in the intensive care unit. She is off BiPAP and on high flow nasal cannula at 14 L with pulse ox 90%. She has been seen by pulmonary medicine and also cardiology. Elevated troponin secondary to hypoxia. Echocardiogram has been ordered. Repeat blood work reveals WBC 14.5, hemoglobin 9.5, platelet count 94. Electrolytes normal. BUN 54 and creatinine 1.62. Capillary blood glucose running between 148 and 156. Repeat chest x-ray reveals diffuse right lung infiltrates and left basilar infiltrates with left midlung mass or masslike consolidation are demonstrated. No significant change from one day earlier. Heparin drip has been discontinued. Patient is currently on IV antibiotics the form of cefepime and Levaquin. Consult added for oncology. 10/16: Patient is seen today in the intensive care unit with plan to maintain another 24 hours here. Patient states that she is feeling much better today.she is on 10 L of oxygen by nasal cannula but feels her breathing is much improved. Pulse ox is 93%. She's been afebrile, heart rate in the 60s to 80s, blood pressure 101/58. Repeat blood work reveals WBC 20, hemoglobin 10.1, platelet count 113. Electrolytes normal. BUN 64 creatinine 1.59. Capillary blood glucose running between 144 and 278. Chest x-ray reveals diffuse right lung infiltrates and left basilar infiltrates with left midlung mass or masslike consolidation all redemonstrated. No significant change. 10/17: Patient remains in the intensive care unit. She is currently on oxygen at 8 L nasal cannula with pulse ox of 98%. She has been afebrile, heart rate in 60s and 70s, respiratory rate 24, blood pressure 117/63. Repeat blood work reveals WBC 15.3, hemoglobin 9.4, platelet count 104. Sodium 135, potassium 4.0, BUN 75, creatinine 1.64. Capillary blood glucose running between 142 and 274. Patient does not have history of diabetes. A1c ordered. Pulmonary medicine has discontinued Levaquin, cefepime, IV Solu-Medrol and transitioned to oral prednisone. Patient is complaining of constipation for which milk of magnesia and prune juice to be given today and stool softener ordered scheduled daily. Patient is also followed by cardiology and IV Lasix decreased to 40 mg every 12 hours continue Cardizem and continue telemetry monitoring. Anticipate patient will be transferred out of the intensive care unit today. Chest x-ray reveals diffuse right lung infiltrates and left basilar infiltrates and/or scarring with left midlung mass or masslike consolidation all redemonstrated. No significant change. Consider bronchoscopy evaluation. 10/18: Patient is doing slightly better down to 4 L of O2, continue updraft treatment, patient is up in the chair today should be needed off and transitional into prednisone from Solu-Medrol, her Mccann catheter still in will try to remove Mccann catheter today encourage physical therapy and hopefully prepare for been transferred to [facility] on Wednesday. Had long discussion with pulmonary apparently with infiltrate she had on the left side and with the big mass on the opposite side patient has been having recurrent pulmonary edema on and off with worsening symptom related to her CA I believe should have more talk with her oncologist about with the plan on the long run. 10/19: She is doing much better today her oxygen sat has improved significantly, the consultation and the interstitial fluid retention has improved significantly the last few days. Still seen pulmonary with a current management patient hopefully will be able to go to rehab by tomorrow. 10/20: Patient's breathing status is significantly improved. She is currently on O2 at 3 L nasal cannula. Heart rate in the 70s and 80s, blood pressure 99/63, afebrile. Patient was on CPAP during the night. Capillary blood glucose running between 87 and 293. Patient has been followed by pulmonary medicine and cardiology. Plan is to continue current cardiac medications and cardiology signed off yesterday. Patient also seen by oncology. Patient feels she is stable enough to be discharged. Discharge plan is for subacute rehab at [facility]. Patient will be discharged today in stable condition. DISCHARGE DIAGNOSES 1 acute on chronic hypoxic respiratory failure with diffuse infiltrate with left upper lobe pneumonia with possible obstructive pneumonitis with the large mass in the left upper lobe. 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 6 Atrial fibrillation with rapid ventricular response, paroxysmal atrial fibrillation 7 chronic pain syndrome 8 coagulopathy with DVT and pulmonary embolism 9 acute kidney injury with chronic kidney disease stage 3. 10 history of seizure 11 hypothyroidism 12 hyperlipidemia 13 chronic neuropathy: Most likely peripheral neuropathy might be chemotherapy related 14 severe GERD DISCHARGE PLAN [employer] [facility] Greater than 35 minutes was utilized and coordinating patient's discharge. Impression and plan of care have been directed as dictated by the signing physician. Rukhsana Og nurse practitioner acting as scribe for signing physician. Patient Condition at Discharge: Stable Plan - Discharge Summary Discharge Rx Participant: No New Discharge Prescriptions: New Nicotine 14Mg/24Hr Patch [Habitrol] 1 patch TRANSDERM DAILY patch Magnesium Hydroxide [Milk of Magnesia Concentrate] 2,400 mg PO DAILY PRN ml PRN Reason: Constipation Sennosides-Docusate Sodium [Senokot-S] 2 each PO DAILY tab Ipratropium-Albuterol Nebulize [Duoneb 0.5 mg-3 mg/3 ml Soln] 3 ml INHALATION RT-QID ml Furosemide [Lasix] 40 mg PO BID@0900,1600 tab INSULIN ASPART (NovoLOG) [NovoLOG (formulary)] 0 unit SQ ACHS ml predniSONE 0 mg PO DIRECTED #30 tab Continue Citalopram Hydrobromide [CeleXA] 20 mg PO W/BRKFST Pantoprazole Sodium 20 mg PO HS Tiotropium 18 Mcg/Puff [Spiriva] 1 cap INHALATION RT-HS Levothyroxine Sodium [Synthroid] 25 mcg PO AC-BRKFST levETIRAcetam [Keppra] 750 mg PO BID Montelukast [Singulair] 10 mg PO DAILY@1200 Diltiazem Cd [Cardizem CD] 180 mg PO DAILY #30 HYDROcodone/APAP 10-325MG [Bondurant 10-325] 1 tab PO TID PRN #9 tab PRN Reason: Pain Albuterol Sulfate [Ventolin HFA] 1 - 2 puff INHALATION RT-Q6H PRN PRN Reason: Shortness Of Breath Atorvastatin [Lipitor] 40 mg PO W/BRKFST Budesonide/Formoterol Fumarate [Symbicort 160-4.5 Mcg Inhaler] 2 puff INHALATION RT-DAILY Vitamin B Complex 1 cap PO W/BRKFST Ergocalciferol [Vitamin D2 (1250 Mcg = 05566 Iu)] 1,250 mcg PO TU Baclofen [Lioresal] 20 mg PO BID Aspirin 325 mg PO HS Enoxaparin [Lovenox] 200 mg SQ DAILY Gabapentin 300 mg PO HS #3 cap Discontinued Albuterol Nebulized [Ventolin Nebulized] 2.5 mg INHALATION RT-TID PRN PRN Reason: Shortness Of Breath predniSONE [Deltasone] 40 mg PO DAILY 3 Days tab Furosemide [Lasix] 20 mg PO DAILY 30 Days tab Discharge Medication List Citalopram Hydrobromide [CeleXA] 20 mg PO W/BRKFST 11/16/18 [History] Pantoprazole Sodium 20 mg PO HS 11/16/18 [History] Tiotropium 18 Mcg/Puff [Spiriva] 1 cap INHALATION RT-HS 11/16/18 [History] Albuterol Sulfate [Ventolin HFA] 1 - 2 puff INHALATION RT-Q6H PRN 11/14/20 [History] Levothyroxine Sodium [Synthroid] 25 mcg PO AC-BRKFST 11/14/20 [History] Atorvastatin [Lipitor] 40 mg PO W/BRKFST 01/02/21 [History] Aspirin 325 mg PO HS 10/06/21 [History] Baclofen [Lioresal] 20 mg PO BID 10/06/21 [History] Budesonide/Formoterol Fumarate [Symbicort 160-4.5 Mcg Inhaler] 2 puff INHALATION RT-DAILY 10/06/21 [History] Enoxaparin [Lovenox] 200 mg SQ DAILY 10/06/21 [History] Ergocalciferol [Vitamin D2 (1250 Mcg = 43089 Iu)] 1,250 mcg PO TU 10/06/21 [History] Montelukast [Singulair] 10 mg PO DAILY@1200 10/06/21 [History] Vitamin B Complex 1 cap PO W/BRKFST 10/06/21 [History] levETIRAcetam [Keppra] 750 mg PO BID 10/06/21 [History] Diltiazem Cd [Cardizem CD] 180 mg PO DAILY #30 10/13/21 [Rx] Furosemide [Lasix] 40 mg PO BID@0900,1600 tab 10/20/21 [Rx] Gabapentin 300 mg PO HS #3 cap 10/20/21 [Rx] HYDROcodone/APAP 10-325MG [Bondurant 10-325] 1 tab PO TID PRN #9 tab 10/20/21 [Rx] INSULIN ASPART (NovoLOG) [NovoLOG (formulary)] 0 unit SQ ACHS ml 10/20/21 [Rx] Ipratropium-Albuterol Nebulize [Duoneb 0.5 mg-3 mg/3 ml Soln] 3 ml INHALATION RT-QID ml 10/20/21 [Rx] Magnesium Hydroxide [Milk of Magnesia Concentrate] 2,400 mg PO DAILY PRN ml 10/20/21 [Rx] Nicotine 14Mg/24Hr Patch [Habitrol] 1 patch TRANSDERM DAILY patch 10/20/21 [Rx] Sennosides-Docusate Sodium [Senokot-S] 2 each PO DAILY tab 10/20/21 [Rx] predniSONE 0 mg PO DIRECTED #30 tab 10/20/21 [Rx] Follow up Appointment(s)/Referral(s): Lise Urias MD [Primary Care Provider] - 1 Week (after discharge from [facility]) Ruy Henry MD [STAFF PHYSICIAN] - 1 Week Eduardo Simmons MD [STAFF PHYSICIAN] - 3 Weeks Gurmeet Sheth MD [STAFF PHYSICIAN] - 2 Weeks Discharge Disposition: TRANSFER TO SNF/ECF
[2021-10-20 11:19] VITALS: BP 106/60; TEMP 97.9
[2021-10-20 11:21] LABS: Glucose,Whole Blood 186 mg/dL (75-99)
--- NOTE | 2021-10-20 11:32 | P.PN ---
Subjective Progress Note Date: 10/20/21 Principal diagnosis: Acute hypoxic respiratory failure, non-small cell lung cancer In follow-up today patient is sitting up in the chair, she is happy to be on 3 L nasal cannula, she states she is feeling much better! She is extremely motivated for rehabilitation. She states that she has discussed with her family, at length, about smoking cessation and the removal of all tobacco and tobacco-related materials from the house. She states that she has been ambulating to the bedside commode. Her CPAP has been adjusted and she is able to use it. Objective - Vital Signs Vital signs: Vital Signs Temp 97.9 F 10/20/21 11:18 Pulse 79 10/20/21 11:18 Resp 20 10/20/21 11:18 BP 106/60 10/20/21 11:18 Pulse Ox 98 10/20/21 11:18 Intake & Output 10/19/21 10/20/21 10/20/21 18:59 06:59 18:59 Intake Total 836 250 Output Total 300 1425 Balance 536 -1175 Intake: IV 10 Invasive Line 2 10 Oral 836 240 Output: Urine 300 1425 Other: Voiding Method Indwelling Catheter Indwelling Catheter Indwelling Catheter # Voids 2 5 # Bowel Movements 1 - Constitutional General appearance: Present: cooperative, morbidly obese, no acute distress - EENT Eyes: Present: anicteric sclerae, EOMI ENT: Present: hearing grossly normal - Respiratory Respiratory: bilateral: CTA, diminished - Cardiovascular Rhythm: regular Heart sounds: normal: S1, S2 Abnormal Heart Sounds: Absent: systolic murmur, diastolic murmur, rub, S3 Gallop, S4 Gallop, click, other - Peripheral edema leg Peripheral Edema: bilateral: Trace - Gastrointestinal General gastrointestinal: Present: soft - Neurologic Neurologic: Present: CNII-XII intact - Musculoskeletal Musculoskeletal: Present: generalized weakness - Psychiatric Psychiatric: Present: A&O x's 3, appropriate affect, intact judgment & insight - Labs CBC & Chem 7: 10/19/21 08:28 10/19/21 08:28 Labs: Abnormal Lab Results - Last 24 Hours (Table) 10/19/21 10/19/21 10/19/21 Range/Units 11:50 16:16 19:59 POC Glucose (mg/dL) 134 H 264 H 293 H (75-99) mg/dL Assessment and Plan (1) Acute respiratory distress Current Visit: Yes Status: Acute Priority: High Code(s): R06.03 - ACUTE RESPIRATORY DISTRESS SNOMED Code(s): 930937526 (2) Lung cancer Current Visit: Yes Status: Chronic Priority: Medium Code(s): C34.90 - MALIGNANT NEOPLASM OF UNSP PART OF UNSP BRONCHUS OR LUNG SNOMED Code(s): 652006057 Plan: Patient was treated for acute hypoxic respiratory failure. She did spend a few days on ventilator support. She is improved with aggressive pulmonary treatments. She is going to participate in rehabilitation. She is highly motivated for smoking cessation. Plan is for patient to follow up with Medical Oncologist in about 2-3 weeks, post rehab, and have repeat chest imaging. Further plans for treatment will be discussed at that time. Patient verbalized understanding and agrees with the plan. Patient continues on treatment dose Lovenox. Patient will continue to use her CPAP as instructed by Pulmonary.
[2021-10-20] MEDS: MONTELUKAST 10 MG TAB PO SCH (11:42)
[2021-10-20] MEDS: methylPREDNISolone SOD SUCCI 40 MG/ML 1 ML VIAL IV SCH (11:44)
[2021-10-20 12:10] VITALS: PULSE 78
--- NOTE | 2021-10-20 13:19 | P.PN ---
Subjective Progress Note Date: 10/20/21 Principal diagnosis: Acute on chronic hypoxic respiratory failure, multifactorial. Patient was reevaluated today on , patient is doing well, she is on 2 L nasal cannula, she had a significant negative fluid balance over the last couple of days, patient has positive pressure ventilation at night. But she is not using it. No significant shortness of breath, no cough, no wheezing, remains on Levaquin empirically for antibiotic coverage. Patient remains on diuretics, and she is on Lasix 40 mg twice a day. She is also on prednisone burst and taper. Patient is also on bronchodilators in the form of Symbicort, and she is also on DuoNeb. Patient is being considered for discharge to [facility] today Objective - Vital Signs Vital signs: Vital Signs Temp 97.9 F 10/20/21 11:18 Pulse 78 10/20/21 12:10 Resp 20 10/20/21 11:18 BP 106/60 10/20/21 11:18 Pulse Ox 98 10/20/21 11:18 Intake & Output 10/19/21 10/20/21 10/20/21 18:59 06:59 18:59 Intake Total 836 250 Output Total 300 1425 Balance 536 -1175 Intake: IV 10 Invasive Line 2 10 Oral 836 240 Output: Urine 300 1425 Other: Voiding Method Indwelling Catheter Indwelling Catheter Indwelling Catheter # Voids 2 5 # Bowel Movements 1 - Exam GENERAL EXAM: 56-year-old female in no distress. HEAD: Normocephalic. EYES: Normal reaction of pupils, equal size. NOSE: Clear with pink turbinates. THROAT: No erythema or exudates. NECK: No masses, no JVD. CHEST: No chest wall deformity. LUNGS: Fine crackles at the bases bilaterally. No rhonchi and no wheezes CVS: S1 and S2 normal with no audible murmur, regular rhythm. ABDOMEN: No hepatosplenomegaly, normal bowel sounds, no guarding or rigidity. SPINE: No scoliosis or deformity SKIN: No rashes CENTRAL NERVOUS SYSTEM: Alert and oriented 3 focal deficits. EXTREMITIES: Trace of bipedal edema. 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 Pro-calcitonin is minimally elevated. Patient is empirically on antibiotics. Paroxysmal atrial fibrillation. Chronic obstructive pulmonary disease. Tobacco dependence syndrome. History of chemoradiation for advanced stage of adenocarcinoma of the left lung. History of DVT and pulmonary embolism. Hypothyroidism. Seizure disorder. History of depression. Recommendation: Continue present treatment plan. Continue empiric antibiotics./Oral Levaquin. Prednisone burst and taper. Continue Lovenox. Continue diuretics. Consider discharge planning to [facility]. Follow-up on outpatient basis with Dr. Henyr. Cleared from our perspective for discharge. Time with Patient: Less than 30
[2021-10-20 14:34] VITALS: BMI 51.4
--- NOTE | 2021-10-23 11:06 | CDI ---
Documentation Clarification Form Date: 10/23/21 From: Tayler Bautista Admit Date: 10/14/2021 01:23:00 PM Patient Name: Natali Royal Visit Number: [id number] Discharge Date: 10/20/2021 04:03:00 PM ATTENTION: The Clinical Documentation Specialists (CDI) and [facility] Coding Staff appreciate your assistance in clarifying documentation. Please respond to the clarification below the line at the bottom and electronically sign. The CDI & [facility] Coding staff will review the response and follow-up if needed. Please note: Queries are made part of the Legal Health Record. If you have any questions, please contact the author of this message via ITS. Dr. Edin Elizondo, Early sepsis is documented in H&P, several PNs and in DS, which may lack sufficient clinical evidence/support in the medical record. Additional clarification is requested. History/Risk Factors: lung cancer, acute on chronic hypoxic respiratory failure, PIERCE, lupus anticoagulant syndrome, morbidly obese w BMI of 51.4, COPD, gram negative nosocomial pneumonia Clinical Indicators: WBC 16.2, Neutrophil 14.72, lactic acid 1.8, Cr 1.47, T 97.6, P 100/105, R 28, BP 116/65 O2 Sat 84//86 Treatment: Bipap, IV fluids, IV Levaquin, IV Solu-Medrol Please clarify if sepsis is a valid diagnosis? [ ] Yes, sepsis is present as evidence by (additional clinical support): [ ] No, sepsis is ruled out [ xx] Other (please specify diagnosis) __Unable to determine Pt was on antibiotics as an out patient [ ] Unable to determine MTDD
== END 2021-10-20 16:03 | DRG 177 ==
LOC: EC 09:33 → 3SCARD 13:23 → 2SICU 16:56 → 3SCARD 10-17 17:49
PROVIDERS: ADMIT Internal Medicine Geriatric Medicine; ATTEND Internal Medicine Geriatric Medicine
PROC: 5A09557 Assistance with Respiratory Ventilation, Greater than 96 Consecutive Hours, Continuous Positive Airway Pressure (ICD-10-PCS; principal; 2021-10-14)
PROC: 5A0955A Assistance with Respiratory Ventilation, Greater than 96 Consecutive Hours, High Flow/Velocity Cannula (ICD-10-PCS; 2021-10-14)
DX: J15.6 Pneumonia due to other Gram-negative bacteria (principal); J96.21 Acute and chronic respiratory failure with hypoxia; N17.9 Acute kidney failure, unspecified; D68.62 Lupus anticoagulant syndrome; Z68.43 Body mass index [BMI] 50.0-59.9, adult; C34.12 Malignant neoplasm of upper lobe, left bronchus or lung; J44.0 Chronic obstructive pulmonary disease with (acute) lower respiratory infection; J44.1 Chronic obstructive pulmonary disease with (acute) exacerbation; C78.02 Secondary malignant neoplasm of left lung; C78.01 Secondary malignant neoplasm of right lung; I27.20 Pulmonary hypertension, unspecified; G40.909 Epilepsy, unspecified, not intractable, without status epilepticus; I48.0 Paroxysmal atrial fibrillation; E66.01 Morbid (severe) obesity due to excess calories; M35.00 Sjogren syndrome, unspecified; N18.30 Chronic kidney disease, stage 3 unspecified; I12.9 Hypertensive chronic kidney disease with stage 1 through stage 4 chronic kidney disease, or unspecified chronic kidney disease; E78.5 Hyperlipidemia, unspecified; E03.9 Hypothyroidism, unspecified; G62.9 Polyneuropathy, unspecified; G89.4 Chronic pain syndrome; I34.0 Nonrheumatic mitral (valve) insufficiency; F32.A Depression, unspecified; G47.33 Obstructive sleep apnea (adult) (pediatric); D50.9 Iron deficiency anemia, unspecified; K21.9 Gastro-esophageal reflux disease without esophagitis; K59.00 Constipation, unspecified; R77.8 Other specified abnormalities of plasma proteins; R59.0 Localized enlarged lymph nodes; R16.1 Splenomegaly, not elsewhere classified; Y95 Nosocomial condition; F17.210 Nicotine dependence, cigarettes, uncomplicated; Z71.6 Tobacco abuse counseling; Z79.82 Long term (current) use of aspirin; Z79.51 Long term (current) use of inhaled steroids; Z79.890 Hormone replacement therapy; Z79.899 Other long term (current) drug therapy; Z92.3 Personal history of irradiation; Z92.21 Personal history of antineoplastic chemotherapy; Z86.711 Personal history of pulmonary embolism; Z86.718 Personal history of other venous thrombosis and embolism; Z86.73 Personal history of transient ischemic attack (TIA), and cerebral infarction without residual deficits; Z91.81 History of falling; Z87.01 Personal history of pneumonia (recurrent); Z98.51 Tubal ligation status; Z87.42 Personal history of other diseases of the female genital tract; Z98.890 Other specified postprocedural states; Z71.3 Dietary counseling and surveillance; Z88.1 Allergy status to other antibiotic agents; Z88.0 Allergy status to penicillin; Z88.2 Allergy status to sulfonamides; Z91.048 Other nonmedicinal substance allergy status; Z81.1 Family history of alcohol abuse and dependence; Z81.3 Family history of other psychoactive substance abuse and dependence; Z82.3 Family history of stroke
CPT/HCPCS: 36415; 71045; 71275; 80048; 80053; 83036; 83605; 83880; 84145; 84484; 85025; 85027; 85610; 85730; 93005; 94640; 94660; 94760; 96361; 96365; 96375; 99291

== ENCOUNTER 2021-12-11 10:50 | Day surgery (SDC) | payer MEDICARE, OTHER ==
[~2021-12-11 10:50] MED LIST changes: +ALBUTEROL NEB (CONC) 2.5 MG/0.5 ML INHALATION ONE; -LIDOCAINE 1% INJ 10MG/ML (20 ML MDV) IV ONE; +LIDOCAINE 2% (PF) 20 MG/ML 5 ML VIAL INHALATION ONE; +LIDOCAINE VISCOUS 300 MG/15 ML CUP MUCOUS MEM ONE; +SODIUM CHLORIDE 0.9% 1,000 ML IV SCH
[2021-12-11 11:31] LABS: Glucose,Whole Blood 96 mg/dL (70-110)
[2021-12-11] MEDS ORDERED: LACTATED RINGERS 1,000 ML IV ONE (11:36)
[2021-12-11 11:39] VITALS: TEMP 97.3
[2021-12-11] MEDS ORDERED: GLYCOPYRROLATE 0.2 MG/ML 2 ML VIAL ONE (12:33)
[2021-12-11] MEDS ORDERED: fentaNYL (PF) 50 MCG/ML 2 ML AMP ONE (12:33)
[2021-12-11] MEDS ORDERED: MIDAZOLAM 2 MG/2 ML VIAL ONE (12:33)
[2021-12-11] MEDS ORDERED: LIDOCAINE 2% INJ 20 MG/ML (2 ML VIAL) ONE (12:33)
[2021-12-11] MEDS ORDERED: NEOSTIGMINE 1 MG/ML 10 ML VIAL ONE (12:33)
[2021-12-11] MEDS ORDERED: ROCURONIUM 10 MG/ML (5 ML VIAL) IV ONE (12:33)
[2021-12-11] MEDS ORDERED: SUCCINYLCHOLINE CHLORIDE 100 MG/5 ML SYR IV ONE (12:33)
[2021-12-11] MEDS ORDERED: PROPOFOL 10 MG/ML 20 ML VIAL IV ONE (12:33)
--- NOTE | 2021-12-11 13:35 | P.PCN ---
Date of Procedure: 12/11/21 Preoperative Diagnosis: FIFI mass, consolidation Postoperative Diagnosis: Significant narrowing of the FIFI bronchus leading into the various upper lobe segments that seem to be anatomically obstructed probably related to atelectatic lung/tumor. Purulent material originating from the lingular segment Narrowing of the left lower lobe bronchus, patent subsegments Normal right lung airway examination Procedure(s) Performed: 1 navigation flexible bronchoscopy 2 transbronchial biopsy left upper lobe 3 transbronchial brushing left upper lobe 4 bronchioloalveolar lavage of the left upper lobe 5 transbronchial needle aspirate of the left upper lobe Anesthesia: JEFF (jose) Surgeon: Ruy Henry Timber Skidder #1: Milvia Haskins Estimated Blood Loss (ml): 0 Pathology: other Condition: stable Disposition: same day Operative Findings: The patient had a preoperative computed tomography scan of the chest using the Veran protocol. The CAT scan images were reviewed. The left upper lobe opacity was identified it was mapped appropriately. The CAT scan images are uploaded into a USB and then into the [employer] tower. After obtaining the consent the patient was taken to the OR suite he was intubated and put on mechanical ventilation by anesthesia then the scope was advanced to the ET tube until the Trachea was seen and it was normal and then the alfred appears normal then the scope advanced to the left main stem bronchus and the airway was patent. As the bronchoscope was advanced, the secondary alfred on the left was somewhat swollen and anatomically distorted. Left lower lobe bronchus was narrowed significantly. I was able to pass the bronchoscope through the left lower lobe bronchus and the various segments of the left lower lobe were visualized. The segments were patent. Then the bronchoscope was moved to the left upper lobe bronchus. Left upper lobe bronchus was significantly narrowed. The 2 segmental bronchi leading into the apical posterior and the lingular segments were visualized. Yet there are episodes of the subsegments were quite narrowed and I was unable to pass the bronchoscope past the narrowing. There was also some irregular loose tissue that was friable the apical posterior anterior segment from the lingular segments. No fungating tumor. Examination of the right lung including the right mainstem bronchus, right upper lobe bronchus and the 3 segments of the right upper lobe bronchus were patent. Bronchus intermedius was within normal limits. Examination of the right middle lobe and the 2 segments in the right lower lobe along with a 5 segments were all within normal limits. The bronchoscope was then brought into the distal left mainstem bronchus. The lingular segments and the apical posterior segment and anterior segments were probed using a navigation bronchoscope/forcep and there was some purulent material originating from the lingular segment there was probably in the order of 5 mL. This was suctioned without any major difficulties. A bronchioloalveolar lavage of the left upper lobe was dominant a total of 200 mL of fluid was infused and 45 mL's was suctioned back. Lasted was nonbloody. Transbronchial biopsies of the radius segments of the left upper lobe was done including the anterior segment and the lingular segment and apical posterior segment. Navigation guidance was utilized for those biopsies. I also performed and the bronchial brushing of all of the segments and transbronchial needle aspirate of the various segments of the left upper lobe. No bleeding was encountered. The samples were sent for pathologic evaluation. Postoperative diagnosis consistent with radiation induced bronchoconstriction involving the left upper lobe bronchus. Consider postobstructive pneumonia. Consider residual tumor in the left upper lobe and we'll be awaiting the results of the biopsies obtained. The bronchoscope was removed, the patient will be extubated and then transferred to recovery.
[2021-12-11 13:47] VITALS: RESP 18
[2021-12-11 14:32] VITALS: BP 107/66; PULSE 62
--- NOTE | 2021-12-11 19:09 | CT ---
EXAMINATION TYPE: CT Chest wo con Veran Protocol DATE OF EXAM: 12/11/2021 COMPARISON: CT dated 10/14/2021 HISTORY: Navigation bronchoscopy CT DLP: 513 mGycm Automated exposure control for dose reduction was used. Technique: Multiplanar CT scan of the chest without IV contrast administration as per VERAN Protocol. FINDINGS: Persistent thick consolidation/soft tissue infiltration involving the anterior aspect of the left jes g with almost complete obstruction of the left upper lobe bronchus. This is concerning for extensive infiltrating primary lung cancer. Multiple variable sized bilateral pulmonary nodules measuring up to 12.5 mm, likely metastatic. Patent trachea. Moderate left-sided pleural effusion. No right-sided pleural effusion. Cardiomediastinal shift to the left side. Coronary arterial calcific ations. No gross cardiomegaly. No sizable pericardial effusion. Suboptimal assessment for hilar lymph adenopathy. Scattered subcentimeter mediastinal lymph nodes. Marked splenomegaly. Significant artifac t in the upper abdomen. Degenerative changes of the mid to lower thoracic spine. IMPRESSION: CT scan for navigation bronchoscopy demonstrating suspicious left lung mass and likely metastatic jes g nodules with other findings as described above.
[2021-12-11 23:21] LABS: Appearance,BF Blood Tinged
== END 2021-12-11 14:42 | disposition home or self-care (01) ==
LOC: ORWHC2ENDO 10:50
PROVIDERS: ATTEND Internal Medicine Critical Care Medicine
DX: C34.12 Malignant neoplasm of upper lobe, left bronchus or lung (principal); J90 Pleural effusion, not elsewhere classified; J98.11 Atelectasis; Z88.0 Allergy status to penicillin; Z88.1 Allergy status to other antibiotic agents; Z88.2 Allergy status to sulfonamides; Z91.09 Other allergy status, other than to drugs and biological substances; Z79.82 Long term (current) use of aspirin; Z79.899 Other long term (current) drug therapy; Z79.51 Long term (current) use of inhaled steroids; Z79.01 Long term (current) use of anticoagulants; Z79.890 Hormone replacement therapy; F17.200 Nicotine dependence, unspecified, uncomplicated; Z82.49 Family history of ischemic heart disease and other diseases of the circulatory system; Z81.1 Family history of alcohol abuse and dependence; E11.69 Type 2 diabetes mellitus with other specified complication; E78.5 Hyperlipidemia, unspecified; Z86.718 Personal history of other venous thrombosis and embolism; E03.9 Hypothyroidism, unspecified; E66.9 Obesity, unspecified; G47.33 Obstructive sleep apnea (adult) (pediatric); D68.62 Lupus anticoagulant syndrome; G62.9 Polyneuropathy, unspecified; M35.00 Sjogren syndrome, unspecified; Z86.711 Personal history of pulmonary embolism; G40.909 Epilepsy, unspecified, not intractable, without status epilepticus; Z86.73 Personal history of transient ischemic attack (TIA), and cerebral infarction without residual deficits; J44.9 Chronic obstructive pulmonary disease, unspecified; Z92.3 Personal history of irradiation; Z79.84 Long term (current) use of oral hypoglycemic drugs
CPT/HCPCS: 87798 ×3; 87496; 87498; 87529; 88104; 88108; 88305; 89050; 88342; 87252; 87502; 87634; 88341; 87070; 87205; 87116; 87102; 87206; 71250; 31629; 31625; 31623; 31624; 31627; J2250; J2710; J3010; J0330; J2704; J2001

== ENCOUNTER 2022-01-01 11:29 | Inpatient (IN) | payer MEDICARE, OTHER ==
--- NOTE | 2022-01-01 13:25 | ED ---
General Adult HPI - General Chief complaint: Neuro Symptoms/Deficit Stated complaint: Weakness Time Seen by Provider: 01/01/22 12:49 Source: patient, RN notes reviewed Mode of arrival: wheelchair Limitations: no limitations - History of Present Illness Initial comments: Patient seen and waiting room secondary to no beds available. Patient is a pleasant 56-year-old female presenting to the emergency department with concerns with her right arm not working well. Patient amiss to having some difficulty with her right leg yesterday. Last known well was 24 hours ago. Patient laid down for nap and did have mild headache at that time. Patient occasionally gets headaches similar to that. Patient did take some pain medicine. When patient woke up she had difficulty using her right arm, very difficult to eat dinner yesterday. Patient also has right leg problems. Patient states symptoms have improved today however not back to normal. Patient also complains of some paresthesias of her right arm. No confusion or speech problems. - Related Data Home Medications Medication Instructions Recorded Confirmed Citalopram Hydrobromide [CeleXA] 20 mg PO W/BRKFST 11/16/18 12/09/21 Pantoprazole Sodium 20 mg PO HS 11/16/18 12/09/21 Tiotropium 18 Mcg/Puff [Spiriva] 1 cap INHALATION RT-HS 11/16/18 12/09/21 Albuterol Sulfate [Ventolin HFA] 1 - 2 puff INHALATION RT-Q6H PRN 11/14/20 12/09/21 Levothyroxine Sodium [Synthroid] 25 mcg PO AC-BRKFST 11/14/20 12/09/21 Atorvastatin [Lipitor] 40 mg PO W/BRKFST 01/02/21 12/09/21 Aspirin 325 mg PO HS 10/06/21 12/09/21 Baclofen [Lioresal] 20 mg PO BID 10/06/21 12/09/21 Budesonide/Formoterol Fumarate 2 puff INHALATION RT-DAILY 10/06/21 12/09/21 [Symbicort 160-4.5 Mcg Inhaler] Enoxaparin [Lovenox] 200 mg SQ DAILY 10/06/21 12/09/21 Ergocalciferol [Vitamin D2 (1250 1,250 mcg PO TU 10/06/21 12/09/21 Mcg = 13982 Iu)] Montelukast [Singulair] 10 mg PO DAILY@1200 10/06/21 12/09/21 Vitamin B Complex 1 cap PO W/BRKFST 10/06/21 12/09/21 levETIRAcetam [Keppra] 750 mg PO BID 10/06/21 12/09/21 Potassium Chloride [Klor-Con M10] 10 meq PO BID 12/09/21 12/09/21 metFORMIN HCL [Glucophage] 500 mg PO AC-SUPPER 12/10/21 12/10/21 Previous Rx's Medication Instructions Recorded Furosemide [Lasix] 40 mg PO BID@0900,1600 tab 10/20/21 Gabapentin 300 mg PO HS #3 cap 10/20/21 HYDROcodone/APAP 10-325MG [[place] 1 tab PO TID PRN #9 tab 10/20/21 10-325] Ipratropium-Albuterol Nebulize 3 ml INHALATION RT-QID ml 10/20/21 [Duoneb 0.5 mg-3 mg/3 ml Soln] Allergies Allergy/AdvReac Type Severity Reaction Status Date / Time doxycycline Allergy Rash/Hives Verified 01/01/22 11:48 Penicillins Allergy Rash/Hives, Verified 01/01/22 11:48 "hard to heal" Sulfa (Sulfonamide Allergy Rash/Hives,"hard Verified 01/01/22 11:48 Antibiotics) to heal" wool Allergy Rash/Hives, Verified 01/01/22 11:48 itching ivory soap Allergy Rash/Hives, Uncoded 01/01/22 11:48 itching Review of Systems ROS Statement: Those systems with pertinent positive or pertinent negative responses have been documented in the HPI. ROS Other: All systems not noted in ROS Statement are negative. Constitutional: Denies: fever Eyes: Denies: eye pain ENT: Denies: ear pain Respiratory: Reports: cough (Related to her COPD) Cardiovascular: Denies: chest pain Endocrine: Denies: fatigue Gastrointestinal: Denies: abdominal pain Genitourinary: Denies: dysuria Musculoskeletal: Denies: back pain Skin: Denies: rash Neurological: Reports: as per HPI, weakness, paresthesias Past Medical History Past Medical History: Blood Disorder, Cancer, COPD, CVA/TIA, Diabetes Mellitus, Deep Vein Thrombosis (DVT), GERD/Reflux, Pneumonia, Pulmonary Embolus (PE), Seizure Disorder, Sleep Apnea/CPAP/BIPAP, Thyroid Disorder Additional Past Medical History / Comment(s): L lung cancer with radiation/chemo and pt completed 01/2021, TIA-no residual effects, blood clot left leg and PE le ft lung, BLANCA with Cpap, last seizure APPROX 2013 bronchitis, protein S and C deficiency, bilateral ankle/pedal edema, past hx falls, DDD, chronic back and bilateral foot pain, weakness in rt legs thought d/t pinched nerve in back, vertigo.COUGHED UP BLOOD History of Any Multi-Drug Resistant Organisms: None Reported Past Surgical History: Tubal Ligation, Uterine Ablation Additional Past Surgical History / Comment(s): D&C, bronchoscopy with L lung biopsy x 2 Past Anesthesia/Blood Transfusion Reactions: No Reported Reaction Past Psychological History: Depression Smoking Status: Current every day smoker Past Alcohol Use History: None Reported Past Drug Use History: None Reported - Past Family History Mother Family Medical History: CVA/TIA Additional Family Medical History / Comment(s): Mother of a CVA at the age of 71 yrs. Brother(s) Family Medical History: No Reported History Additional Family Medical History / Comment(s): Patient has no children. Father Additional Family Medical History / Comment(s): Father was an alcoholic and drug addict. General Exam Limitations: no limitations General appearance: alert, in no apparent distress Head exam: Present: normocephalic Eye exam: Present: normal appearance, PERRL, EOMI ENT exam: Present: normal oropharynx Neck exam: Present: normal inspection Respiratory exam: Present: normal lung sounds bilaterally Cardiovascular Exam: Present: regular rate, normal rhythm GI/Abdominal exam: Present: soft. Absent: tenderness Extremities exam: Present: normal inspection Neurological exam: Present: alert, CN II-XII intact Expanded Neurological exam: Present: protecting the airway Speech: Present: fluid speech Cranial nerves: EOM's Intact: Normal, Facial Sensation: Normal Sensory exam: Upper Extremity Light Touch: Normal, Lower Extremity Light Touch: Normal Motor strength exam: RUE: 4, LUE: 5, RLE: 4, LLE: 5 Eye Response: (4) open spontaneously Motor Response: (6) obeys commands Verbal Response: (5) oriented Psychiatric exam: Present: normal affect, normal mood Skin exam: Present: normal color Course Vital Signs 01/01/22 11:45 Temperature 98.8 F Pulse Rate 107 H Respiratory 22 Rate Blood Pressure 91/54 O2 Sat by Pulse 94 L Oximetry EKG Findings - EKG Comments: EKG Findings:: Sinus tachycardia 106. GA 134. QRS 82. QT 319. QTC 31. Normal axis. Normal QRS. No acute ST change. Medical Decision Making - Medical Decision Making Patient reevaluated and updated. Case discussed with practitioner Kiara, covering for Dr. Payan, who will admit for hospital call. Patient will need neurology evaluation for probable stroke. Patient will also need home and very evaluation for lung consolidation. Computed tomography scan will be ordered. - Lab Data Result diagrams: 01/01/22 13:22 01/01/22 13:22 Lab Results 01/01/22 01/01/22 01/01/22 Range/Units 13:22 13:22 13:22 WBC 10.8 H (3.8-10.6) k/uL RBC 2.93 L (3.80-5.40) m/uL Hgb 7.5 L (11.4-16.0) gm/dL Hct 23.6 L (34.0-46.0) % MCV 80.5 (80.0-100.0) fL MCH 25.4 (25.0-35.0) pg MCHC 31.6 (31.0-37.0) g/dL RDW 16.5 H (11.5-15.5) % Plt Count 165 (150-450) k/uL MPV 8.2 Neutrophils % 81 % Lymphocytes % 10 % Monocytes % 6 % Eosinophils % 1 % Basophils % 0 % Neutrophils # 8.7 H (1.3-7.7) k/uL Lymphocytes # 1.1 (1.0-4.8) k/uL Monocytes # 0.6 (0-1.0) k/uL Eosinophils # 0.1 (0-0.7) k/uL Basophils # 0.0 (0-0.2) k/uL Hypochromasia Slight Poikilocytosis Slight Anisocytosis Slight Sodium 132 L (137-145) mmol/L Potassium 4.2 (3.5-5.1) mmol/L Chloride 105 (98-107) mmol/L Carbon Dioxide 19 L (22-30) mmol/L Anion Gap 8 mmol/L BUN 43 H (7-17) mg/dL Creatinine 2.13 H (0.52-1.04) mg/dL Est GFR (CKD-EPI)AfAm 29 (>60 ml/min/1.73 sqM) Est GFR (CKD-EPI)NonAf 25 (>60 ml/min/1.73 sqM) Glucose 105 H (74-99) mg/dL Calcium 9.1 (8.4-10.2) mg/dL Total Bilirubin 0.3 (0.2-1.3) mg/dL AST 23 (14-36) U/L ALT 14 (4-34) U/L Alkaline Phosphatase 88 (38-126) U/L Troponin I 0.038 H* (0.000-0.034) ng/mL Total Protein 7.7 (6.3-8.2) g/dL Albumin 3.4 L (3.5-5.0) g/dL - Radiology Data Radiology results: report reviewed (CT brain shows no acute hemorrhage or shift. Mild atrophy.), image reviewed (And near complete opacification left hemithorax. Patchy density right base.) Disposition Clinical Impression: Lung consolidation, Cerebrovascular accident (CVA) Disposition: ADMITTED IP TO THIS HOSP Condition: Serious Is patient prescribed a controlled substance at d/c from ED?: No Referrals: Bernadette Stewart NPC [Primary Care Provider] - 1-2 days Time of Disposition: 15:03
[2022-01-01 13:45] LABS: Anisocytosis Slight; Basophils % (A) 0 %; Eosinophils # (A) 0.1 k/uL (0-0.7); Eosinophils % (A) 1 %; HCT 23.6 % (34.0-46.0); HGB 7.5 gm/dL (11.4-16.0); Hypochromasia Slight; Lymphocytes # (A) 1.1 k/uL (1.0-4.8); Lymphocytes % (A) 10 %; MCH 25.4 pg (25.0-35.0); MCHC 31.6 g/dL (31.0-37.0); MCV 80.5 fL (80.0-100.0); Mean Platelet Volume 8.2; Monocytes # (A) 0.6 k/uL (0-1.0); Monocytes % (A) 6 %; Neutrophils # (A) 8.7 k/uL (1.3-7.7); Neutrophils % (A) 81 %; Platelet Count 165 k/uL (150-450); Poikilocytosis Slight; RBC 2.93 m/uL (3.80-5.40); RDW 16.5 % (11.5-15.5); WBC 10.8 k/uL (3.8-10.6)
--- NOTE | 2022-01-01 13:56 | XR ---
EXAMINATION TYPE: XR chest 2V DATE OF EXAM: 01/01/2022 COMPARISON: 10/18/2021 HISTORY: Shortness of breath TECHNIQUE: Frontal and lateral views of the chest are obtained. FINDINGS: Scattered senescent parenchymal changes noted. Hyperinflation compatible with COPD. There is near complete opacification left hemithorax with some aerated lung about the left hilum. Mil d patchy density right medial lung base. The remainder of the right lung is clear. Heart size is stable. Mediastinal structures are stable and grossly unremarkable. No evidence for hilar prominence. Degenerative changes dorsal spine. IMPRESSION: 1. There is near complete opacification left hemithorax with some aerated lung about the left hilum. Mild patchy density right medial lung base. The remainder of the right lung is clear.
[2022-01-01 14:01] LABS: Albumin 3.4 g/dL (3.5-5.0); Calcium 9.1 mg/dL (8.4-10.2); Potassium 4.2 mmol/L (3.5-5.1); Total Bilirubin 0.3 mg/dL (0.2-1.3); Total Protein 7.7 g/dL (6.3-8.2)
--- NOTE | 2022-01-01 14:21 | CT ---
EXAMINATION TYPE: CT brain wo con DATE OF EXAM: 01/01/2022 HISTORY: weakness. Acute onset neuro deficit. CT DLP: 1102.4 mGycm. Automated Exposure Control for Dose Reduction was Utilized. TECHNIQUE: CT scan of the head is performed without contrast. COMPARISON: CT brain November 14, 2020. FINDINGS: There is no acute intracranial hemorrhage or midline shift identified. There is mild diff use ventricular and sulcal prominence consistent with diffuse age-related cerebral atrophy. There is mild low-attenuation in the periventricular white matter consistent with chronic small vessel ischem ic change. The globes are intact and the visualized sinuses are clear. IMPRESSION: No acute intracranial hemorrhage or midline shift. There is mild diffuse age-related ce rebral atrophy and chronic small vessel ischemic change redemonstrated. No significant change from p rior CT.
[2022-01-01] MEDS ORDERED: ASPIRIN 325 MG TAB PO STA (15:04)
[2022-01-01] MEDS ORDERED: IPRATROPIUM-ALBUTEROL 3 ML NEB INHALATION PRN (15:06)
[2022-01-01] MEDS ORDERED: PNEUMONIA PROTOCOL UTILIZED 1 EACH MISC PO PRN (15:06)
[2022-01-01] MEDS ORDERED: AZITHROMYCIN 500 MG in SODIUM CHLORIDE 0.9% 250 ML IVPB STA (15:06)
[2022-01-01 16:46] LABS: INR 1.5 (<1.2); Prothrombin Time 15.6 sec (9.0-12.0)
[2022-01-01] MEDS: SODIUM CHLORIDE 0.9% 1,000 ML IV SCH (17:56)
[2022-01-01] MEDS ORDERED: RX INFO: IV CONTRAST WAS GIVEN 1 EACH MISC MISCELLANE PRN (18:26)
[2022-01-01] MEDS: IPRATROPIUM-ALBUTEROL 3 ML NEB INHALATION SCH ×2 (19:23→19:51)
[2022-01-01 20:15] LABS: Glucose,Whole Blood 115 mg/dL (70-110)
--- NOTE | 2022-01-01 22:11 | CT ---
EXAMINATION TYPE: CT chest wo con DATE OF EXAM: 01/01/2022 COMPARISON: Chest radiograph , and CT chest 12/11/2021 HISTORY: dyspnea CT DLP: 749.1 mGycm. Automated Exposure Control for Dose Reduction was Utilized. TECHNIQUE: CT scan of the thorax is performed without IV contrast. FINDINGS: AIRWAYS/ LUNGS: Evaluation of the airways shows cut off of the left upper lobe bronchus, with airless ness throughout the entire left upper lobe. There is no upward midline mediastinal shift and, therefo re, left upper lobe process has associated mass effect. There is partial obstruction of the left lower lobe bronchus, with mild partial left lower lobe atele ctasis. Within this partially inflated left lower lobe are a few pulmonary nodules in the periphery, measuring from subcentimeter to 1 cm diameter. On the right, there are scattered solid pulmonary nodules, ranging in size from 1 cm to 2 cm. PLEURAL SPACES: Negative bilaterally. MEDIASTINUM: There are scattered subcentimeter mediastinal lymph nodes. The left hilum. The seen mass effect from the left upper lobe process. Coronary calcifications are noted, as are mitral valve plane calcifications. No cardiomegaly or peric ardial effusion. OTHER: Moderate splenomegaly. IMPRESSION: Abnormalities as above.
[2022-01-02] MEDS: SODIUM CHLORIDE 0.9% 1,000 ML IV SCH ×2 (03:10→12:59)
[2022-01-02 06:00] LABS: Glucose,Whole Blood 140 mg/dL (70-110)
--- NOTE | 2022-01-02 07:08 | XR ---
EXAMINATION TYPE: XR chest 2V DATE OF EXAM: 01/02/2022 COMPARISON: Chest CT 1 day earlier and older studies. Outside PET/CT November 11, 2021. HISTORY: History of left-sided lung cancer with pneumonia. TECHNIQUE: Frontal and lateral views of the chest are obtained. FINDINGS: Persistent central left lung mass or neoplasm with complete opacification left hemithorax o n current study. There is small left-sided pleural fluid collection. No distinct mediastinal shift. S uspicious peripheral right lower lung nodule is redemonstrated. Silhouetting left heart border noted. Osseous structures are intact. IMPRESSION: Redemonstration of known central left lung mass or neoplasm with small left pleural flu id collection. Diffuse left lung infiltrate and/or atelectasis noted.
[2022-01-02] MEDS: IPRATROPIUM-ALBUTEROL 3 ML NEB INHALATION SCH (07:54)
--- NOTE | 2022-01-02 07:54 | US ---
EXAMINATION TYPE: US carotid duplex BILAT DATE OF EXAM: 01/02/2022 COMPARISON: History of lung cancer with carotid stenosis. CLINICAL HISTORY: Stenosis. Poor historian. Patient would not stay awake. EXAM MEASUREMENTS: RIGHT: Peak Systolic Velocity (PSV) cm/sec ----- Right CCA: 97.3 ----- Right ICA: 86.9 ----- Right ECA: 137.1 ICA/CCA ratio: 0.9 RIGHT: End Diastole cm/sec ----- Right CCA: 16.4 ----- Right ICA: 20.3 ----- Right ECA: 9.5 LEFT: Peak Systolic Velocity (PSV) cm/sec ----- Left CCA: 85.4 ----- Left ICA: 93.1 ----- Left ECA: 106.4 ICA/CCA ratio: 1.1 LEFT: End Diastole cm/sec ----- Left CCA: 24.1 ----- Left ICA: 20.6 ----- Left ECA: 9.5 VERTEBRALS (direction of flow): Right Vertebral: Antegrade Left Vertebral: Antegrade Rhythm: Normal Elevated right ECA velocity. No significant stenosis. Wall thickening. Suboptimal study due to patient noncooperation. IMPRESSION: Suboptimal study without hemodynamically significant stenosis in either internal carotid artery. Criteria for Assigning % of Stenosis / Diameter reduction (Estimation based on the indirect measurements of the internal carotid artery velocities (ICA PSV). 1. Normal (no stenosis)=ICA PSV < 125 cm/s: ratio < 2.0: ICA EDV<40 cm/s. 2. Less than 50% stenosis=ICA PSV < 125 cm/s: ratio < 2.0: ICA EDV<40 cm/s. 3. 50 to 69% stenosis=ICA PSV of 125 to 230 cm/s: ration 2.0 ? 4.0: ICA EDV 40-100 cm/s. 4. Greater than 70% stenosis to near occlusion= ICA PSV > 230 cm/s: ratio > 4.0: ICA EDV > 100 cm/s. 5. Near occlusion= ICA PSV velocities may be low or undetectable: variable ratio and ICA EDV. 6. Total occlusion=unable to detect flow.
[2022-01-02] MEDS ORDERED: ASPIRIN 325 MG TAB PO SCH (09:00)
--- NOTE | 2022-01-02 09:42 | P.HPIM ---
History of Present Illness H&P Date: 01/01/22 HISTORY OF PRESENT ILLNESS 56 year-old morbidly obese female one of Dr. 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 fib, patient also known to have non-small cell see of the lung has been on chemotherapy postradiation, she had DVT and PE as well history of obstructive sleep apnea and recurrent TIA, she was hospitalized last in 10/14/2021 for acute hypoxic respiratory failure BiPAP dependent was in earlier on October 06 for acute respiratory failure. Patient has been on Lovenox 200 mg a day for the failure of coagulation with her pulmonary embolism in cancer survival patient. She presented to the emergency department on 01/01/2022 complaining that her right arm be numb and now working properly also her right leg has been weaker than before and have more dropping foot. She had increased pain in the right arm as well or shortness of breath continues to be a problem with minimum exertion. With the weakness in the right side which can be sign of brain metastasis ended up going for CAT scan of the brain which shows no acute intracranial hemorrhage or midline shift there is mild diffuse age-related cerebral atrophy and chronic small vessel ischemic change. With the consent of Pancoast syndrome CAT scan of the lung was perform as well showed left upper lobe process associated with mass effect. There is partial obstruction of the left lower lobe, mild partial left lower lobe atelectasis with few pulmonary nodular in the peripheral measuring from less than centimeter to 1 cm in size. There is also scattered of subcentimeter mediastinal lymph node exist in the left hilum area and mass effect from the left upper lobe. The patient be admitted to the hospital MRI of the brain will be order sheet be seen oncology and pulmonary but will consult neurology as well with a drop foot on the right side and significant weakness in the right arm she might have met astasis to the left temporoparietal area. Might require to be started on steroid to reduce the swelling to decide with oncology with's to do as a next step. Also the possibility of cervical radical up if he is a patient might require to have further testing on her C-spine as well. REVIEW OF SYSTEMS Constitutional: Mildly overweight, on BiPAP look in mild respiratory distress and had been severely dyspneic. EENT: No headache. No blurred vision or double vision, no loss of vision. No loss of Hearing, no ringing in the ears, no dizziness. No nasal drainage or co ngestion. No epistaxis. No sore throat. Lungs: Significant shortness of breath with extreme wheezes. Cardiovascular: No chest pain, no lower extremity edema. No palpitations. No paroxysmal nocturnal dyspnea. No orthopnea. No lightheadedness or dizziness. No syncopal episodes. Abdominal: No abdominal pain. No nausea, vomiting. No diarrhea. No constipation. No bloody or tarry stools.. No loss of appetite. Genitourinary: No dysuria, increased frequency, urgency. No urinary retention. Musculoskeletal: Generalized myalgia and arthralgia with abnormal balance and gait, she had significant weakness in the right upper extremity and significant weakness in the right lower extremity including dropping foot. Integumentary: No wounds, no lesions. No rash or pruritus. No unusual bruising . No change in hair or nails. Neurologic: Positive weakness of the right side along with speech problem and aphasia without dysphagia currently Psychiatric: No depression. No anxiety. No mood swings. Endocrine: No abnormal blood sugars. No weight change. No excessive sweating or thirst. No cold intolerance. SOCIAL HISTORY She smokes one and half pack a day for the last 40 years willing to try nicotine patch try to quit, patient does not drink alcohol, she has sleep apnea he uses CPAP she is on the with her and has been retired so far for any years. FAMILY HISTORY Her father at age 56 from [place], mother her 70 from the cardiac infarction, patient had 2 brothers and half brother one of them from drug overdose patient does not have any children. PHYSICAL EXAMINATION Gen: This is a morbidly obese laying in bed has BiPAP on looks in mild respiratory distress surgeon quite but kidney. HEENT: Head is atraumatic, normocephalic. Pupils equal, round. Sclerae is anicteric. NECK: Supple. No JVD. No lymphadenopathy. No thyromegaly. LUNGS: Decreased breath some today with significant rhonchi mild crackles in the bases positive mild inspiratory expiratory wheezes. HEART: Regular rate and rhythm. Mild tachycardia has history ABDOMEN: Soft. Bowel sounds are present. No masses. No tenderness. EXTREMITIES: Trace edema decreased pulse bilaterally, right upper extremity had significant weakness with slight pain and discomfort no finding in the shoulder and elbow area, also the right lower extremity has dropping foot with mild discomfort and weakness. NEUROLOGICAL: Patient is awake, alert and oriented x3. Cranial nerves 2 through 12 are grossly intact. Had significant weakness in the right side compared to the left side with dropping foot in the right leg. ASSESSMENT AND PLAN - Weakness of the right side: Possibility of CVA or brain metastasis in the left temporal area is very highly suspicious specially with her lung cancer. Patient was admitted to the hospital, will be seen neurology order MRI of the brain and order at least x-ray and testing on the cervical spine to make sure don't have any cervical radical neuropathy. 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 - chronic hypoxic respiratory failure with diffuse infiltrate with left upper lobe pneumonia with possible obstructive pneumonitis with the large mass in the left upper lobe. Patient be covered for gram-negative pneumonia as well the meanwhile continue BiPAP, memory consultation, continue Solu-Medrol along with DuoNeb patient will be admitted to the ICU at this point. - Acute pneumonia with obstructive pneumonitis: Was started on azithromycin and Rocephin. - coagulopathy with DVT and pulmonary embolism: Remain on anticoagulation which patient doing Lovenox 200 mg subcutaneous daily. - Atrial fibrillation with controlled pulse rate and ventricular response, resumeanticoagulation patient will continue home medication. - history of seizure: Has been on Keppra 750 mg twice a day resume medication. - hypothyroidism: Continue levothyroxine 25 g daily. - hyperlipidemia: Remain on atorvastatin 40 mg a day we'll resume medication. - chronic neuropathy: Most likely peripheral neuropathy might be chemotherapy related, remain on gabapentin 300 mg daily at bedtime. - severe GERD/GI prophylaxis: Patient remain on pantoprazole 20 mg daily. - chronic pain syndrome: Remain on hydrocodone 10/325 mg 3 times a day. - acute kidney injury with chronic kidney disease, continue gentle hydration repeat CMP and next 24 hours. - DVT prophylaxis: Patient currently being treated with active anticoagulation with Lovenox subcutaneous. - GI prophylaxis: Continue patient on pantoprazole. CODE STATUS: Full code. Admit patient to the inpatient service for more than 2 days stay. Past Medical History Past Medical History: Blood Disorder, Cancer, COPD, CVA/TIA, Diabetes Mellitus, Deep Vein Thrombosis (DVT), GERD/Reflux, Pneumonia, Pulmonary Embolus (PE), Seizure Disorder, Sleep Apnea/CPAP/BIPAP, Thyroid Disorder Additional Past Medical History / Comment(s): L lung cancer with radiation/chemo and pt completed 01/2021, TIA-no residual effects, blood clot left leg and PE left lung, BLANCA with Cpap, last seizure APPROX 2013 bronchitis, protein S and C deficiency, bilateral ankle/pedal edema, past hx falls, DDD, chronic back and bilateral foot pain, weakness in rt legs thought d/t pinched nerve in back, vertigo.COUGHED UP BLOOD History of Any Multi-Drug Resistant Organisms: None Reported Past Surgical History: Tubal Ligation, Uterine Ablation Additional Past Surgical History / Comment(s): D&C, bronchoscopy with L lung biopsy x 2 Past Anesthesia/Blood Transfusion Reactions: No Reported Reaction Past Psychological History: Depression Smoking Status: Current every day smoker Past Alcohol Use History: None Reported Past Drug Use History: None Reported - Past Family History Mother Family Medical History: CVA/TIA Additional Family Medical History / Comment(s): Mother of a CVA at the age of 71 yrs. Brother(s) Family Medical History: No Reported History Additional Family Medical History / Comment(s): Patient has no children. Father Additional Family Medical History / Comment(s): Father was an alcoholic and drug addict. Medications and Allergies Home Medications Medication Instructions Recorded Confirmed Type Citalopram Hydrobromide [CeleXA] 20 mg PO DAILY 11/16/18 01/01/22 History Pantoprazole Sodium 20 mg PO DAILY 11/16/18 01/01/22 History Albuterol Sulfate [Ventolin HFA] 1 - 2 puff INHALATION RT-Q6H PRN 11/14/2001/01 History Levothyroxine Sodium [Synthroid] 25 mcg PO [id number] 11/14/20 01/01/22 History Atorvastatin [Lipitor] 40 mg PO HS 01/02/21 01/01/22 History Aspirin 325 mg PO DAILY 10/06/21 01/01/22 History Baclofen [Lioresal] 20 mg PO DAILY 10/06/21 01/01/22 History Enoxaparin [Lovenox] 200 mg SQ DAILY 10/06/21 01/01/22 History Ergocalciferol [Vitamin D2 (1250 1,250 mcg PO TU 10/06/21 01/01/22 History Mcg = 64665 Iu)] Montelukast [Singulair] 10 mg PO DAILY 10/06/21 01/01/22 History levETIRAcetam [Keppra] 750 mg PO BID 10/06/21 01/01/22 History Gabapentin 300 mg PO HS #3 cap 10/20/21 01/01/22 Rx Potassium Chloride [Klor-Con M10] 20 meq PO DAILY 12/09/21 01/01/22 History Fluticasone/Vilanterol [Breo 1 puff INHALATION RT-DAILY 01/01/22 01/01/22 History Ellipta 100-25 Mcg Inhaler] Furosemide [Lasix] 20 mg PO DAILY 01/01/22 01/01/22 History HYDROcodone/APAP 10-325MG [Jacumba 1 tab PO HS PRN 01/01/22 01/01/22 History 10-325] Tiotropium 2.5 Mcg/Puff [Spiriva 2 puff INHALATION RT-DAILY 01/01/22 01/01/22 History Respimat 2.5 Mcg] metFORMIN HCL ER [Glucophage XR] 500 mg PO HS 01/01/22 01/01/22 History Allergies Allergy/AdvReac Type Severity Reaction Status Date / Time doxycycline Allergy Rash/Hives Verified 01/01/22 18:18 Penicillins Allergy Rash/Hives, Verified 01/01/22 18:18 "hard to heal" Sulfa (Sulfonamide Allergy Rash/Hives,"hard Verified 01/01/22 18:18 Antibiotics) to heal" wool Allergy Rash/Hives, Verified 01/01/22 18:18 itching ivory soap Allergy Rash/Hives, Uncoded 01/01/22 11:48 itching Physical Exam Vitals: Vital Signs Temp Pulse Resp BP Pulse Ox 01/01/22 17:10 110 H 22 108/73 95 01/01/22 11:45 98.8 F 107 H 22 91/54 94 L Intake and Output 01/01/22 01/01/22 01/01/22 06:59 14:59 22:59 Other: Weight 127.006 kg Results CBC & Chem 7: 01/01/22 13:22 01/01/22 13:22 Labs: Abnormal Lab Results - Last 24 Hours (Table) 01/01/22 01/01/22 01/01/22 Range/Units 13:22 13:22 13:22 WBC 10.8 H (3.8-10.6) k/uL RBC 2.93 L (3.80-5.40) m/uL Hgb 7.5 L (11.4-16.0) gm/dL Hct 23.6 L (34.0-46.0) % RDW 16.5 H (11.5-15.5) % Neutrophils # 8.7 H (1.3-7.7) k/uL PT (9.0-12.0) sec INR (<1.2) APTT (22.0-30.0) sec Sodium 132 L (137-145) mmol/L Carbon Dioxide 19 L (22-30) mmol/L BUN 43 H (7-17) mg/dL Creatinine 2.13 H (0.52-1.04) mg/dL Glucose 105 H (74-99) mg/dL Troponin I 0.038 H* (0.000-0.034) ng/mL Albumin 3.4 L (3.5-5.0) g/dL 01/01/22 Range/Units 16:09 WBC (3.8-10.6) k/uL RBC (3.80-5.40) m/uL Hgb (11.4-16.0) gm/dL Hct (34.0-46.0) % RDW (11.5-15.5) % Neutrophils # (1.3-7.7) k/uL PT 15.6 H (9.0-12.0) sec INR 1.5 H (<1.2) APTT 86.0 H (22.0-30.0) sec Sodium (137-145) mmol/L Carbon Dioxide (22-30) mmol/L BUN (7-17) mg/dL Creatinine (0.52-1.04) mg/dL Glucose (74-99) mg/dL Troponin I (0.000-0.034) ng/mL Albumin (3.5-5.0) g/dL
[2022-01-02] MEDS: BACLOFEN 10 MG TAB PO SCH (09:43)
[2022-01-02] MEDS: FUROSEMIDE 20 MG TAB PO SCH (09:43)
[2022-01-02] MEDS: MONTELUKAST 10 MG TAB PO SCH (09:43)
[2022-01-02] MEDS: CITALOPRAM HYDROBROMIDE 20 MG TAB PO SCH (09:43)
[2022-01-02] MEDS: POTASSIUM CHLORIDE ER 20 MEQ TAB.ER PO SCH (09:43)
[2022-01-02] MEDS: ASPIRIN 325 MG TAB PO SCH (09:43)
[2022-01-02] MEDS: NICOTINE 14MG/24HR PATCH TRANSDERM SCH (09:49)
[2022-01-02] MEDS: PANTOPRAZOLE 40 MG TABLET PO SCH (09:49)
[2022-01-02] MEDS: ENOXAPARIN 100 MG/ML SYRINGE SQ SCH (09:53)
--- NOTE | 2022-01-02 10:51 | P.CNPUL ---
History of Present Illness Consult date: 01/02/22 Requesting physician: Edin Elizondo Reason for consult: lung mass, abnormal CXR/CT, obstructive sleep apnea Chief complaint: Right arm and right leg weakness/numbness. History of present illness: Pulmonary consult dated 01/02/2022. 56-year-old female well-known to our service. Back in 2016, the patient had a diagnosis of lung cancer made, involving the left lung, adenocarcinoma, and apparently received radiation therapy, and chemotherapy. Subsequent to that, she had disease recurrence in 2020, and at that time, also receive additional chemotherapy and radiation therapy. She follows with Dr. Maria and Dr. Swann. She also sees my partner for her lung disease. She comes into the hospital, on January 01, complaining of right arm and right leg weakness, and numbness. She apparently was being evaluated for possible CVA. She did have a computed tomography scan of the brain which did not reveal anything acute. He is scheduled to have an MRI. Recently, in November of this year, my partner we biopsied her left lung, and again discovered recurrent adenocarcinoma. Sampling was sent for genetic testing, to determine if the patient is a candidate for immunotherapy/targeted therapy. The patient is currently not having any respiratory issues at this time. She is on room air. White count 10.8, he will been 7.5, hematocrit 23.6, and platelet count 165,000. PT is 15.6, with an INR 1.5, and a PTT of 86. Sodium 132, potassium 4.2, chlorides 105, CO2 19, BUN 43, and creatinine 2.13. Troponin was 0.038. Albumin 3.4. Chest x-ray showed near complete opacification of the left chest, without obvious cutoff sign of the left mainstem bronchus. Brain CT showed no acute intracranial hemorrhage or midline shift. There was no significant change from prior computed tomography scan done in October of last year. The chest CT showed cutoff of the left upper lobe bronchus, with hairlessthroughout the entire left upper lobe. There is also partial obstruction of the left lower lobe bronchus. Review of Systems REVIEW OF SYSTEMS: CONSTITUTIONAL: [Negative.] NEUROLOGIC: Right upper extremity, right lower extremity weakness and numbness. HEENT: [ Negative.] CARDIAC: [Negative.] PULMONARY: [Negative.] GI: [Negative.] : [Negative.] RHEUMATOLOGIC: [ Negative.] IMMUNOLOGIC: [ Negative.] ENDOCRINE: [Negative. ] DERMATOLOGIC: [Negative.] Past Medical History Past Medical History: Blood Disorder, Cancer, COPD, CVA/TIA, Diabetes Mellitus, Deep Vein Thrombosis (DVT), GERD/Reflux, Pneumonia, Pulmonary Embolus (PE), Seizure Disorder, Sleep Apnea/CPAP/BIPAP, Thyroid Disorder Additional Past Medical History / Comment(s): L lung cancer with radiation/chemo and pt completed 01/2021, TIA-no residual effects, blood clot left leg and PE left lung, BLANCA with Cpap, last seizure APPROX 2013 bronchitis, protein S and C deficiency, bilateral ankle/pedal edema, past hx falls, DDD, chronic back and bilateral foot pain, weakness in rt legs thought d/t pinched nerve in back, vertigo.COUGHED UP BLOOD History of Any Multi-Drug Resistant Organisms: None Reported Past Surgical History: Tubal Ligation, Uterine Ablation Additional Past Surgical History / Comment(s): D&C, bronchoscopy with L lung biopsy x 2 Past Anesthesia/Blood Transfusion Reactions: No Reported Reaction Past Psychological History: Depression Smoking Status: Current every day smoker Past Alcohol Use History: None Reported Past Drug Use History: None Reported - Past Family History Mother Family Medical History: CVA/TIA Additional Family Medical History / Comment(s): Mother of a CVA at the age of 71 yrs. Brother(s) Family Medical History: No Reported History Additional Family Medical History / Comment(s): Patient has no children. Father Additional Family Medical History / Comment(s): Father was an alcoholic and drug addict. Medications and Allergies Home Medications Medication Instructions Recorded Confirmed Type Citalopram Hydrobromide [CeleXA] 20 mg PO DAILY 11/16/18 01/01/22 History Pantoprazole Sodium 20 mg PO DAILY 11/16/18 01/01/22 History Albuterol Sulfate [Ventolin HFA] 1 - 2 puff INHALATION RT-Q6H PRN 11/14/20 01/01/22 History Levothyroxine Sodium [Synthroid] 25 mcg PO AC-BRKFST 11/14/20 01/01/22 History Atorvastatin [Lipitor] 40 mg PO HS 01/02/21 01/01/22 History Aspirin 325 mg PO DAILY 10/06/21 01/01/22 History Baclofen [Lioresal] 20 mg PO DAILY 10/06/21 01/01/22 History Enoxaparin [Lovenox] 200 mg SQ DAILY 10/06/21 01/01/22 History Ergocalciferol [Vitamin D2 (1250 1,250 mcg PO TU 10/06/21 01/01/22 History Mcg = 00530 Iu)] Montelukast [Singulair] 10 mg PO DAILY 10/06/21 01/01/22 History levETIRAcetam [Keppra] 750 mg PO BID 10/06/21 01/01/22 History Gabapentin 300 mg PO HS #3 cap 10/20/21 01/01/22 Rx Potassium Chloride [Klor-Con M10] 20 meq PO DAILY 12/09/21 01/01/22 History Fluticasone/Vilanterol [Breo 1 puff INHALATION RT-DAILY 01/01/22 01/01/22 History Ellipta 100-25 Mcg Inhaler] Furosemide [Lasix] 20 mg PO DAILY 01/01/22 01/01/22 History HYDROcodone/APAP 10-325MG [Ceylon 1 tab PO HS PRN 01/01/22 01/01/22 History 10-325] Tiotropium 2.5 Mcg/Puff [Spiriva 2 puff INHALATION RT-DAILY 01/01/22 01/01/22 History Respimat 2.5 Mcg] metFORMIN HCL ER [Glucophage XR] 500 mg PO HS 01/01/22 01/01/22 History Allergies Allergy/AdvReac Type Severity Reaction Status Date / Time doxycycline Allergy Rash/Hives Verified 01/01/22 18:18 Penicillins Allergy Rash/Hives, Verified 01/01/22 18:18 "hard to heal" Sulfa (Sulfonamide Allergy Rash/Hives,"hard Verified 01/01/22 18:18 Antibiotics) to heal" wool Allergy Rash/Hives, Verified 01/01/22 18:18 itching ivory soap Allergy Rash/Hives, Uncoded 01/01/22 11:48 itching Physical Exam Osteopathic Statement: *. No significant issues noted on an osteopathic structural exam other than those noted in the History and Physical/Consult. Vitals: Vital Signs Temp Pulse Pulse Resp BP BP Pulse Ox 01/02/22 08:05 100 01/02/22 07:54 96 01/02/22 04:00 98.8 F 106 H 24 104/61 91 L 01/02/22 00:00 99.7 F H 107 H 18 108/64 94 L 01/01/22 20:08 107 H 01/01/22 20:00 97.8 F 103 H 20 90/55 95 01/01/22 19:51 107 H 01/01/22 19:45 97.8 F 105 H 22 90/55 95 01/01/22 18:17 106 H 22 105/58 97 01/01/22 17:10 110 H 22 108/73 95 01/01/22 11:45 98.8 F 107 H 22 91/54 94 L Intake and Output 01/01/22 01/02/22 01/02/22 22:59 06:59 14:59 Intake Total 240 140 Balance 240 140 Intake: Oral 240 140 Other: Voiding Method Toilet # Voids 3 Weight 127.006 kg No acute distress, oriented 3. Not requiring any supplemental oxygen. Room air saturation 93%. HEENT examination is grossly unremarkable. Neck supple. Full range of motion. No adenopathy thyromegaly or neck vein distention. Cardiovascular examination reveals regular rhythm rate. S1-S2 normal. No S3 or S4. No discernible murmur noted. Heart rate 96 bpm. Heart sounds are distant. Lungs reveal diminished left-sided breath sounds. Scattered mild rhonchi. No wheezes. No crackles. Abdomen soft bowel sounds are heard. No masses or tenderness. Extremities are intact. No cyanosis clubbing or edema. Skin is without rash or lesion. Neurologic examination is brief but nonfocal. Results - Laboratory Findings CBC and BMP: 01/01/22 13:22 01/01/22 13:22 PT/INR, D-dimer PT 15.6 sec (9.0-12.0) H 01/01/22 16:09 INR 1.5 (<1.2) H 01/01/22 16:09 Abnormal lab findings: Abnormal Labs 01/01/22 01/01/22 01/01/22 13:22 13:22 13:22 WBC 10.8 H RBC 2.93 L Hgb 7.5 L Hct 23.6 L RDW 16.5 H Neutrophils # 8.7 H PT INR APTT Sodium 132 L Carbon Dioxide 19 L BUN 43 H Creatinine 2.13 H Glucose 105 H POC Glucose (mg/dL) Troponin I 0.038 H* Albumin 3.4 L 01/01/22 01/01/22 01/02/22 16:09 20:14 05:58 WBC RBC Hgb Hct RDW Neutrophils # PT 15.6 H INR 1.5 H APTT 86.0 H Sodium Carbon Dioxide BUN Creatinine Glucose POC Glucose (mg/dL) 115 H 140 H Troponin I Albumin - Diagnostic Findings Chest x-ray: image reviewed CT scan - chest: image reviewed Assessment and Plan Assessment: Right upper extremity and right lower extremity weakness, currently being evaluated by the primary service. MRI scan of the brain is pending. Computed tomography scan of the brain showed nothing acute. Recurrent adenocarcinoma of the lung, status post chemoradiation in 2016 and 2020. Repeat lung biopsy November 2021, again showed adenocarcinoma. Ongoing tobacco use with nicotine addiction. History of COPD. History of CVA. History of diabetes mellitus. History of DVT/pulmonary embolism. Gastroesophageal reflux disease. History of seizure disorder. She of obstructive sleep apnea syndrome. Hypothyroidism. History of proteins S and C deficiency. Plan: Plan dated 01/02/2022. The patient is currently stable from the pulmonary standpoint. I do agree with the ordering of an MRI, to rule out metastases to the brain. The patient unfortunately continues to smoke. She apparently is using nicotine patches. She had a recent lung biopsy done in November of this year, by my partner, which again showed adenocarcinoma. He was initially diagnosed in 2016, treated then, and retreated, 2020. Overall prognosis remains very guarded. Time with Patient: Greater than 30
[2022-01-02] MEDS ORDERED: ALBUTEROL NEBULIZED 2.5 MG/3 ML INHALATION PRN (10:52)
[2022-01-02 11:19] LABS: Chol/HDL Ratio 2.45 Ratio; LDL Cholesterol,Calculated 35.2 mg/dL (0.0-131.0); VLDL Calculation 16.52 mg/dL (5.00-40.00)
[2022-01-02 11:49] LABS: Glucose,Whole Blood 123 mg/dL (70-110)
--- NOTE | 2022-01-02 11:53 | P.PN ---
Subjective Progress Note Date: 01/02/22 HISTORY OF PRESENT ILLNESS 56 year-old morbidly obese female one of Dr. 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 fib, patient also known to have non-small cell see of the lung has been on chemotherapy postradiation, she had DVT and PE as well history of obstructive sleep apnea and recurrent TIA, she was hospitalized last in 10/14/2021 for acute hypoxic respiratory failure BiPAP dependent was in earlier on October 06 for acute respiratory failure. Patient has been on Lovenox 200 mg a day for the failure of coagulation with her pulmonary embolism in cancer survival patient. She presented to the emergency department on 01/01/2022 complaining that her right arm be numb and now working properly also her right leg has been weaker than before and have more dropping foot. She had increased pain in the right arm as well or shortness of breath continues to be a problem with minimum exertion. With the weakness in the right side which can be sign of brain metastasis ended up going for CAT scan of the brain which shows no acute intracranial hemorrhage or midline shift there is mild diffuse age-related cerebral atrophy and chronic small vessel ischemic change. With the consent of Pancoast syndrome CAT scan of the lung was perform as well showed left upper lobe process associated with mass effect. There is partial obstruction of the left lower lobe, mild partial left lower lobe atelectasis with few pulmonary nodular in the peripheral measuring from less than centimeter to 1 cm in size. There is also scattered of subcentimeter mediastinal lymph node exist in the left hilum area and mass effect from the left upper lobe. The patient be admitted to the hospital MRI of the brain will be order sheet be seen oncology and pulmonary but will consult neurology as well with a drop foot on the right side and significant weakness in the right arm she might have metastasis to the left temporoparietal area. Might require to be started on steroid to reduce the swelling to decide with oncology with's to do as a next step. Also the possibility of cervical radical up if he is a patient might require to have further testing on her C-spine as well. 01/02: Patient is seen today on the cardiac stepdown unit. She states the weakness in her right arm is not any better. She has been afebrile, heart rate 96, blood pressure 104/61, pulse ox 91% on RA. Triglycerides 82, cholesterol 87, LDL 35, HDL 35. Patient has been seen by pulmonary medicine in agreement for MRI of the brain to rule out metastasis to the brain. Consult was added for oncology, patient follows with Dr. Maria. Neurology consult is pending. Echocardiogram has been ordered. IV fluids will be discontinued. Carotid ultrasound revealed suboptimal study without hemodynamically significant stenosis in either internal carotid artery. REVIEW OF SYSTEMS Constitutional: Mildly overweight, no respiratory distress. EENT: No headache. No blurred vision or double vision, no loss of vision. No loss of Hearing, no ringing in the ears, no dizziness. No nasal drainage or congestion. No epistaxis. No sore throat. Lungs: Significant shortness of breath with extreme wheezes. Cardiovascular: No chest pain, no lower extremity edema. No palpitations. No paroxysmal nocturnal dyspnea. No orthopnea. No lightheadedness or dizziness. No syncopal episodes. Abdominal: No abdominal pain. No nausea, vomiting. No diarrhea. No constipation. No bloody or tarry stools.. No loss of appetite. Genitourinary: No dysuria, increased frequency, urgency. No urinary retention. Musculoskeletal: Generalized myalgia and arthralgia with abnormal balance and gait, she had significant weakness in the right upper extremity and significant weakness in the right lower extremity including dropping foot. Integumentary: No wounds, no lesions. No rash or pruritus. No unusual bruising. No change in hair or nails. Neurologic: Positive weakness of the right side along with speech problem and aphasia without dysphagia currently Psychiatric: No depression. No anxiety. No mood swings. Endocrine: No abnormal blood sugars. No weight change. No excessive sweating or thirst. No cold intolerance. PHYSICAL EXAMINATION Gen: This is a morbidly obese female sitting in recliner and appears to be in no acute distress. She is currently on room air. HEENT: Head is atraumatic, normocephalic. Pupils equal, round. Sclerae is anicteric. NECK: Supple. No JVD. No lymphadenopathy. No thyromegaly. LUNGS: Decreased breath some today with significant rhonchi mild crackles in the bases positive mild inspiratory expiratory wheezes. HEART: Regular rate and rhythm. Mild tachycardia has history ABDOMEN: Soft. Bowel sounds are present. No masses. No tenderness. EXTREMITIES: Trace edema decreased pulse bilaterally, right upper extremity had significant weakness with slight pain and discomfort no finding in the shoulder and elbow area, also the right lower extremity has dropping foot with mild discomfort and weakness. NEUROLOGICAL: Patient is awake, alert and oriented x3. Cranial nerves 2 through 12 are grossly intact. Had significant weakness in the right side compared to the left side with dropping foot in the right leg. ASSESSMENT AND PLAN - Weakness of the right side: Possibility of CVA or brain metastasis in the left temporal area is very highly suspicious specially with her lung cancer. Patient was admitted to the hospital, will be seen neurolog. MRI of the brain ordered. - non-small cell lung/adenocarcinoma of the left side been treated by oncology had chemotherapy and radiation, consult added for oncology. - COPD exacerbation: Most likely caused by the obstructive pneumonia along with a severe hypoxia at this point, patient will benefit from DuoNeb along with Pulmicort continue steroid IV. - chronic hypoxic respiratory failure with diffuse infiltrate with left upper lobe pneumonia with possible obstructive pneumonitis with the large mass in the left upper lobe. Patient be covered for gram-negative pneumonia as well the meanwhile continue BiPAP, memory consultation, continue Solu-Medrol along with DuoNeb patient will be admitted to the ICU at this point. - Acute pneumonia with obstructive pneumonitis: Was started on azithromycin and Rocephin. - coagulopathy with DVT and pulmonary embolism: Remain on anticoagulation which patient doing Lovenox 200 mg subcutaneous daily. - Atrial fibrillation with controlled pulse rate and ventricular response, resume anticoagulation patient will continue home medication. - history of seizure: Has been on Keppra 750 mg twice a day resume medication. - hypothyroidism: Continue levothyroxine 25 g daily. - hyperlipidemia: Remain on atorvastatin 40 mg a day we'll resume medication. - chronic neuropathy: Most likely peripheral neuropathy might be chemotherapy related, remain on gabapentin 300 mg daily at bedtime. - severe GERD/GI prophylaxis: Patient remain on pantoprazole 20 mg daily. - chronic pain syndrome: Remain on hydrocodone 10/325 mg 3 times a day. - acute kidney injury with chronic kidney disease, continue gentle hydration repeat CMP and next 24 hours. - DVT prophylaxis: Patient currently being treated with active anticoagulation with Lovenox subcutaneous. - GI prophylaxis: Continue patient on pantoprazole. CODE STATUS: Full code. DISCHARGE PLAN Home Impression and plan of care have been directed as dictated by the signing physician. Rukhsana Og nurse practitioner acting as scribe for signing physician. Objective - Vital Signs Vital signs: Vital Signs Temp 98.8 F 01/02/22 04:00 Pulse 100 01/02/22 08:05 Resp 24 01/02/22 04:00 BP 104/61 01/02/22 04:00 Pulse Ox 91 L 01/02/22 04:00 FiO2 Intake & Output 01/01/22 01/02/22 01/02/22 18:59 06:59 18:59 Intake Total 240 Balance 240 Weight 127.006 kg 127.006 kg Intake: Oral 240 Other: Voiding Method Toilet # Voids 3 - Labs CBC & Chem 7: 01/01/22 13:22 01/01/22 13:22 Labs: Abnormal Lab Results - Last 24 Hours (Table) 01/01/22 01/01/22 01/01/22 Range/Units 13:22 13:22 13:22 WBC 10.8 H (3.8-10.6) k/uL RBC 2.93 L (3.80-5.40) m/uL Hgb 7.5 L (11.4-16.0) gm/dL Hct 23.6 L (34.0-46.0) % RDW 16.5 H (11.5-15.5) % Neutrophils # 8.7 H (1.3-7.7) k/uL PT (9.0-12.0) sec INR (<1.2) APTT (22.0-30.0) sec Sodium 132 L (137-145) mmol/L Carbon Dioxide 19 L (22-30) mmol/L BUN 43 H (7-17) mg/dL Creatinine 2.13 H (0.52-1.04) mg/dL Glucose 105 H (74-99) mg/dL POC Glucose (mg/dL) (70-110) mg/dL Troponin I 0.038 H* (0.000-0.034) ng/mL Albumin 3.4 L (3.5-5.0) g/dL 01/01/22 01/01/22 01/02/22 Range/Units 16:09 20:14 05:58 WBC (3.8-10.6) k/uL RBC (3.80-5.40) m/uL Hgb (11.4-16.0) gm/dL Hct (34.0-46.0) % RDW (11.5-15.5) % Neutrophils # (1.3-7.7) k/uL PT 15.6 H (9.0-12.0) sec INR 1.5 H (<1.2) APTT 86.0 H (22.0-30.0) sec Sodium (137-145) mmol/L Carbon Dioxide (22-30) mmol/L BUN (7-17) mg/dL Creatinine (0.52-1.04) mg/dL Glucose (74-99) mg/dL POC Glucose (mg/dL) 115 H 140 H (70-110) mg/dL Troponin I (0.000-0.034) ng/mL Albumin (3.5-5.0) g/dL
--- NOTE | 2022-01-02 12:15 | CA ---
Transthoracic Echo Report Name: Natali Royal Age: 56 Gender: F : 1965 Exam Date: 01/02/2022 08:25 Exam Location: [place] [facility] Ht (in): 62 Wt (lb): 280 Ordering Physician: Howie Soriano DO Attending/Referring Phys: [employer]os[employer] Mixer Operator Melissa Nielsen RDCS Procedure CPT: Indications: Thrombus Cardiac Hx: Full echo done on 10/07/21, Fm hx Technical Quality: Very technically difficult study Contrast 1: Lumason Total Dose (mL): 1 Contrast 2: Total Dose (mL): MEASUREMENTS (Male / Female) Normal Values DOPPLER MR Peak Velocity 231.9 cm/s MR Peak Gradient 21.5 mmHg FINDINGS Left Ventricle Lumason used to visualize wall motion. Left ventricular ejection fraction is estimated at 55-60_%. Right Ventricle Right Atrium Left Atrium Mitral Valve Calcified mitral valve. Possible vegetation on the mitral valve. Mild mitral regurgitation. Aortic Valve Tricuspid Valve Pulmonic Valve Pericardium No pericardial effusion. Aorta CONCLUSIONS 1. Technically difficult study, limited study 2. Normal size and systolic function 3. Calcified mitral valve, the possibility of vegetation cannot be totally excluded. If clinically indicated a RONALD would be helpful. Previewed by: Dr. Mary Starr MD (Electronically Signed) Final Date: 02 January 2022 12:14
[2022-01-02] MEDS: INSULIN ASPART (NovoLOG) 100 UNIT/ML VIAL SQ SCH ×3 (13:01→21:13)
[2022-01-02] MEDS: ALBUTEROL NEBULIZED 2.5 MG/3 ML INHALATION PRN ×2 (15:08→19:17)
[2022-01-02] MEDS ORDERED: VANCOMYCIN IV PER PHARMACY 1 EACH MISC MISCELLANE PRN (15:59)
[2022-01-02] MEDS ORDERED: VANCOMYCIN 2,000 MG in SODIUM CHLORIDE 0.9% 500 ML 500 ML IVPB ONE (16:30)
[2022-01-02 16:37] LABS: Glucose,Whole Blood 123 mg/dL (70-110)
--- NOTE | 2022-01-02 16:39 | MR ---
EXAMINATION TYPE: MR brain wo/w con DATE OF EXAM: 01/02/2022 4:22 PM COMPARISON: 11/15/2020 HISTORY: Right sided weakness CONTRAST: Patient received 11 ml mL intravenous Gadavist gadolinium contrast. Multiplanar and multispin-echo imaging of the brain was performed . Pre and post contrast enhanced i mages are obtained. The ventricles, basal cisterns and sulci overlying the cerebral convexities are mildly enlarged. There is evidence of mild periventricular white matter ischemic demyelination. Remote deep white matter insults are also noted. Diffusion weighted data set demonstrates a tiny focus of increased signal in the left parietal region as well as the sulcal increased signal in the high left frontal parietal lobe. Findings are compatib le with small areas of acute CVA. There is no evidence for midline shift or mass effect. Acute intracranial hemorrhage or extra-axial collection is not evident. No enhancing lesions are seen. The paranasal sinuses and mastoid air cells are well-aerated. IMPRESSION: 1. Small areas of acute CVA left parietal and left frontoparietal regions. No hemorrhagic transformat ion. 2. Age-related atrophic and chronic small vessel ischemic change. 3. No enhancing lesions are seen.
[2022-01-02] MEDS: AZITHROMYCIN 500 MG TAB PO SCH (17:04)
[2022-01-02] MEDS: methylPREDNISolone SOD SUCCI 125 MG/2 ML VIAL IV SCH ×2 (17:05→22:49)
--- NOTE | 2022-01-02 18:31 | P.CONS ---
History of Present Illness - Reason for Consult Consult date: 01/02/22 Recurrent non-small cell lung cancer Requesting physician: Rukhsana Og - Chief Complaint RUE weakness, MOON - History of Present Illness Natali is a very pleasant 56-year-old female patient of Dr. Maria who is currently admitted for numbness in the right arm. She woke up with a headache. Noticed the numbness in the arm, some weakness in the arm also some foot drop. She states that she was told to come to the emergency room for evaluation. CT without contrast of the head did not show any evidence of metastasis or hemorrhage. Her CT of the chest showing near complete whiteout of the left lung. She denies any significant changes in her breathing, she still uses oxygen at night, she is able to get around and perform her ADLs independently. She is not currently in any pain. Malignancy history: Patient is a history of a left lung nodule since 2014, on continuous monitoring. CT of the chest -1.5 x 1.7 cm left hilar lesion, 08/21/17 PET showed enlarging left lung nodule with intermediate uptake. Short- term repeat CT 11/17/18 increase in left lung mass to 1.8 x 2.6 cm. Brain MRI 11/17/18 done for dizziness, negative for metastases. 11/23/18 had a bronchoscopy, transbronchial biopsy of the left lower lobe. Pathology positive for low-grade pulmonary adenocarcinoma. She was evaluated by thoracic surgery, not felt to be a surgical candidate due to comorbidities. Patient had SBRT with Dr. Swann. She follow-up with Rad Onc. PET 05/10 revealed suspicious uptake an increasing size of a left hilar node and some new small right lung nodules. Referred back to Oncology 08/20/20. PET 09/03/20 revealed increasing size of previously irradiated area, SUV remained stable at 9, no additional suspicious finding. Bronchoscopy, biopsy was suspicious for atypical cells. It was decided by Rad Onc to wait and repeat PET. 12/10/20 repeat PET revealed suspicious SUV in left hilar region with more solid component, representing local recurrence. A left breast lesion was was incidentally found and evaluated by Dr. Swann with mammograms and U/S-negative. 01/06/21 she started concurrent weekly taxol/carboplatin with radiation completed on 02/17/21. 04/29/21 repeat PET scan revealed stable findings. It was decided not to proceed with immunotherapy due to Sjogrens disease, on hydroxychloroquine. She is lupus anticoagulant positive, on therapeutic dose of lovenox for the same. She has had 2 hospitalizations in September this year for shortness of breath, pneumonia. She had left upper lobe biopsy 12/11/21, unfortunately positive for recurrent a denocarcinoma. Review of Systems 10 point review of systems is negative except as stated in HPI Past Medical History Past Medical History: Blood Disorder, Cancer, COPD, CVA/TIA, Diabetes Mellitus, Deep Vein Thrombosis (DVT), GERD/Reflux, Pneumonia, Pulmonary Embolus (PE), Seizure Disorder, Sleep Apnea/CPAP/BIPAP, Thyroid Disorder Additional Past Medical History / Comment(s): L lung cancer with radiation/chemo and pt completed 01/2021, TIA-no residual effects, blood clot left leg and PE left lung, BLANCA with Cpap, last seizure APPROX 2013 bronchitis, protein S and C deficiency, bilateral ankle/pedal edema, past hx falls, DDD, chronic back and bilateral foot pain, weakness in rt legs thought d/t pinched nerve in back, vertigo.COUGHED UP BLOOD History of Any Multi-Drug Resistant Organisms: None Reported Past Surgical History: Tubal Ligation, Uterine Ablation Additional Past Surgical History / Comment(s): D&C, bronchoscopy with L lung biopsy x 2 Past Anesthesia/Blood Transfusion Reactions: No Reported Reaction Past Psychological History: Depression Smoking Status: Current every day smoker Past Alcohol Use History: None Reported Past Drug Use History: None Reported - Past Family History Mother Family Medical History: CVA/TIA Additional Family Medical History / Comment(s): Mother of a CVA at the age of 71 yrs. Brother(s) Family Medical History: No Reported History Additional Family Medical History / Comment(s): Patient has no children. Father Additional Family Medical History / Comment(s): Father was an alcoholic and drug addict. Medications and Allergies Home Medications Medication Instructions Recorded Confirmed Type Citalopram Hydrobromide [CeleXA] 20 mg PO DAILY 11/16/18 01/01/22 History Pantoprazole Sodium 20 mg PO DAILY 11/16/18 01/01/22 History Albuterol Sulfate [Ventolin HFA] 1 - 2 puff INHALATION RT-Q6H PRN 11/14/20 01/01/22 History Levothyroxine Sodium [Synthroid] 25 mcg PO AC-BRKFST 11/14/20 01/01/22 History Atorvastatin [Lipitor] 40 mg PO HS 01/02/21 01/01/22 History Aspirin 325 mg PO DAILY 10/06/21 01/01/22 History Baclofen [Lioresal] 20 mg PO DAILY 10/06/21 01/01/22 History Enoxaparin [Lovenox] 200 mg SQ DAILY 10/06/21 01/01/22 History Ergocalciferol [Vitamin D2 (1250 1,250 mcg PO TU 10/06/21 01/01/22 History Mcg = 16386 Iu)] Montelukast [Singulair] 10 mg PO DAILY 10/06/21 01/01/22 History levETIRAcetam [Keppra] 750 mg PO BID 10/06/21 01/01/22 History Gabapentin 300 mg PO HS #3 cap 10/20/21 01/01/22 Rx Potassium Chloride [Klor-Con M10] 20 meq PO DAILY 12/09/21 01/01/22 History Fluticasone/Vilanterol [Breo 1 puff INHALATION RT-DAILY 01/01/22 01/01/22 History Ellipta 100-25 Mcg Inhaler] Furosemide [Lasix] 20 mg PO DAILY 01/01/22 01/01/22 History HYDROcodone/APAP 10-325MG [[place] 1 tab PO HS PRN 01/01/22 01/01/22 History 10-325] Tiotropium 2.5 Mcg/Puff [Spiriva 2 puff INHALATION RT-DAILY 01/01/22 01/01/22 History Respimat 2.5 Mcg] metFORMIN HCL ER [Glucophage XR] 500 mg PO HS 01/01/22 01/01/22 History Allergies Allergy/AdvReac Type Severity Reaction Status Date / Time doxycycline Allergy Rash/Hives Verified 01/01/22 18:18 Penicillins Allergy Rash/Hives, Verified 01/01/22 18:18 "hard to heal" Sulfa (Sulfonamide Allergy Rash/Hives,"hard Verified 01/01/22 18:18 Antibiotics) to heal" wool Allergy Rash/Hives, Verified 01/01/22 18:18 itching ivory soap Allergy Rash/Hives, Uncoded 01/01/22 11:48 itching Physical Exam Vitals: Vital Signs Temp Pulse Pulse Resp BP BP Pulse Ox 01/02/22 16:00 97.5 F L 95 20 93/59 97 01/02/22 15:18 100 01/02/22 15:08 100 01/02/22 14:00 22 01/02/22 12:00 97.8 F 97 22 90/50 93 L 01/02/22 08:05 100 01/02/22 08:00 98.7 F 104 H 26 H 92/61 96 01/02/22 07:54 96 01/02/22 04:00 98.8 F 106 H 24 104/61 91 L 01/02/22 00:00 99.7 F H 107 H 18 108/64 94 L 01/01/22 20:08 107 H 01/01/22 20:00 97.8 F 103 H 20 90/55 95 01/01/22 19:51 107 H 01/01/22 19:45 97.8 F 105 H 22 90/55 95 01/01/22 18:17 106 H 22 105/58 97 Intake and Output 01/02/22 01/02/22 01/02/22 06:59 14:59 22:59 Intake Total 240 440 90 Balance 240 440 90 Intake: Oral 240 440 90 Other: Voiding Method Toilet Toilet # Voids 3 2 - Constitutional General appearance: cooperative, no acute distress, obese - EENT Eyes: anicteric sclerae, EOMI ENT: hearing grossly normal, normal oropharynx - Neck Neck: no lymphadenopathy - Respiratory Trach deviation to the left Respiratory: left: other (Absent) - Cardiovascular Rhythm: regular Heart sounds: normal: S1, S2 Abnormal Heart Sounds: no systolic murmur, no diastolic murmur, no rub, no S3 Gallop, no S4 Gallop, no click, no other leg Peripheral Edema: bilateral: Trace - Gastrointestinal General gastrointestinal: no absent bowel sounds, no decreased bowel sounds, no distended, no hepatomegaly, no hyperactive bowel sounds, normal bowel sounds, no organomegaly, no rigid, no scaphoid, soft, no splenomegaly, no tenderness, no umbilical hernia, no ventral hernia - Integumentary Integumentary: normal - Neurologic Upper extremity strength left greater than right, 4/5. - Musculoskeletal Musculoskeletal: right sided weakness - Psychiatric Psychiatric: A&O x's 3, appropriate affect, intact judgment & insight Results CBC & Chem 7: 01/01/22 13:22 01/01/22 13:22 Labs: Abnormal Lab Results - Last 24 Hours (Table) 01/01/22 01/01/22 01/02/22 Range/Units 13:22 20:14 05:58 POC Glucose (mg/dL) 115 H 140 H (70-110) mg/dL HDL Cholesterol 35.60 L (40.00-60.00) mg/dL Procalcitonin (0.02-0.09) ng/mL 01/02/22 01/02/22 01/02/22 Range/Units 10:24 11:48 16:33 POC Glucose (mg/dL) 123 H 123 H (70-110) mg/dL HDL Cholesterol (40.00-60.00) mg/dL Procalcitonin 0.88 H (0.02-0.09) ng/mL Microbiology - Last 24 Hours (Table) 01/01/22 16:09 Blood Culture Gram Stain - Preliminary Blood 01/01/22 16:09 Blood Culture - Final Blood 01/01/22 16:25 Blood Culture Gram Stain - Preliminary Blood 01/01/22 16:25 Blood Culture - Final Blood CT scan - chest: report reviewed, image reviewed (Near-complete obliteration of the left lung) CT Scan - head: report reviewed (Without contrast, no acute process) Assessment and Plan (1) Non-small cell lung cancer (NSCLC) Current Visit: Yes Status: Chronic Priority: High Code(s): C34.90 - MALIGNANT NEOPLASM OF UNSP PART OF UNSP BRONCHUS OR LUNG SNOMED Code(s): 334400101 Plan: Dr. Simmons reviewed pathology results with the patient, recurrent lung adenocarcinoma. NGS and PDL 1 testing results were available in the office this afternoon PDL 1 was less than 1%, KRAS did have a mutation but, unfortunately sub type that we do not have targeted agent for. Reviewed patient's current symptoms, of course concerns for distant metastatic disease. Pending MRI of the brain. Solu-Medrol 60 twice a day started. Patient has a follow-up appointment scheduled with Dr. Maria to discuss further treatment options. Doctor attests: I performed a history and physical examination of this patient, developed impression and plan of care. Discussed with dictator. I agree with dictators note, documented as a scribe.
[2022-01-02 20:27] LABS: Glucose,Whole Blood 186 mg/dL (70-110)
[2022-01-02] MEDS: HYDROcodone/APAP 10-325MG 1 EACH TAB PO PRN (21:12)
[2022-01-02] MEDS: GABAPENTIN 300 MG CAP PO SCH (21:12)
[2022-01-02] MEDS: ATORVASTATIN 40 MG TAB PO SCH (21:12)
--- NOTE | 2022-01-02 21:16 | P.CNNES ---
History of Present Illness Consult date: 01/02/22 Requesting physician: Howie Soriano Reason for Consult: CVA History of Present Illness: Patient is a 56-year-old right-handed female with history of COPD, recurrent lung cancer, history of DVT, protein C and protein S deficiency on anticoagulation, tobacco use, came to the hospital yesterday at 11:29 AM for right arm weakness, possible CVA. Patient states that her symptoms started 1 day prior to arrival, at 4 PM when she woke up from a 1-1/2 hours nap, she noticed numbness of the right hand and right foot. She also had a headache. She took nitro, and went to sleep. When she woke up next morning at 5 AM, and noticed right arm was much weaker, not able to hold spoon with the right hand. Vital signs on arrival blood pressure 91/54, which improved to 108/73. Pulse rate [address] head showed no acute intracranial hemorrhage or midline shift. There is mild diffuse age-related cerebral atrophy and chronic small vessel ischemic changes. No significant change from prior CT. I personally reviewed CT head, agree with the findings. EKG shows sinus tachycardia, abnormal rhythm. Patient states that she has smoked 2 packs per day for 20-25 years. She stopped smoking on 10/13/2021 and stayed off tobacco for 3 weeks, but her on 11/02/2021 therefore she went back on smoking half pack per day since then. She denies hypertension, diabetes or hyperlipidemia. She used to drink alcohol, but quit long time ago. Patient states she has history of seizure disorder since 2001. She used to be on Dilantin for a while. She was admitted for Dilantin toxicity around 1-2 years ago, after which she was switched to Keppra. She has been on Keppra, doing well. She has not had any seizures since 2009. Her seizures used to be grand mal seizures. Patient states that she has been using walker since 2019. At home she hangs onto the [place] of the rails. But when she goes out doctor's office, she uses a walker. She lives by herself. Review of Systems Positive for cough, shortness of breath, no fever or chills. No abdominal pain nausea vomiting diarrhea. No double vision, loss of vision. No slurred speech. Patient has edema. Weakness, numbness. Patient admits to Weight gain, difficulty with walking, fatigue. All other review of systems reviewed and noncontributory to the present illness. Past Medical History Past Medical History: Blood Disorder, Cancer, COPD, CVA/TIA, Diabetes Mellitus, Deep Vein Thrombosis (DVT), GERD/Reflux, Pneumonia, Pulmonary Embolus (PE), Seizure Disorder, Sleep Apnea/CPAP/BIPAP, Thyroid Disorder Additional Past Medical History / Comment(s): L lung cancer with radiation/chemo and pt completed 01/2021, TIA-no residual effects, blood clot left leg and PE left lung, BLANCA with Cpap, last seizure APPROX 2013 bronchitis, protein S and C deficiency, bilateral ankle/pedal edema, past hx falls, DDD, chronic back and bilateral foot pain, weakness in rt legs thought d/t pinched nerve in back, vertigo.COUGHED UP BLOOD History of Any Multi-Drug Resistant Organisms: None Reported Past Surgical History: Tubal Ligation, Uterine Ablation Additional Past Surgical History / Comment(s): D&C, bronchoscopy with L lung biopsy x 2 Past Anesthesia/Blood Transfusion Reactions: No Reported Reaction Past Psychological History: Depression Smoking Status: Current every day smoker Past Alcohol Use History: None Reported Past Drug Use History: None Reported - Past Family History Mother Family Medical History: CVA/TIA Additional Family Medical History / Comment(s): Mother of a CVA at the age of 71 yrs. Brother(s) Family Medical History: No Reported History Additional Family Medical History / Comment(s): Patient has no children. Father Additional Family Medical History / Comment(s): Father was an alcoholic and drug addict. Medications and Allergies Home Medications Medication Instructions Recorded Confirmed Type Citalopram Hydrobromide [CeleXA] 20 mg PO DAILY 11/16/18 01/01/22 History Pantoprazole Sodium 20 mg PO DAILY 11/16/18 01/01/22 History Albuterol Sulfate [Ventolin HFA] 1 - 2 puff INHALATION RT-Q6H PRN 11/14/20 01/01/22 History Levothyroxine Sodium [Synthroid] 25 mcg PO AC-BRKFST 11/14/20 01/01/22 History Atorvastatin [Lipitor] 40 mg PO HS 01/02/21 01/01/22 History Aspirin 325 mg PO DAILY 10/06/21 01/01/22 History Baclofen [Lioresal] 20 mg PO DAILY 10/06/21 01/01/22 History Enoxaparin [Lovenox] 200 mg SQ DAILY 10/06/21 01/01/22 History Ergocalciferol [Vitamin D2 (1250 1,250 mcg PO TU 10/06/21 01/01/22 History Mcg = 45530 Iu)] Montelukast [Singulair] 10 mg PO DAILY 10/06/21 01/01/22 History levETIRAcetam [Keppra] 750 mg PO BID 10/06/21 01/01/22 History Gabapentin 300 mg PO HS #3 cap 10/20/21 01/01/22 Rx Potassium Chloride [Klor-Con M10] 20 meq PO DAILY 12/09/21 01/01/22 History Fluticasone/Vilanterol [Breo 1 puff INHALATION RT-DAILY 01/01/22 01/01/22 History Ellipta 100-25 Mcg Inhaler] Furosemide [Lasix] 20 mg PO DAILY 01/01/22 01/01/22 History HYDROcodone/APAP 10-325MG [[place] 1 tab PO HS PRN 01/01/22 01/01/22 History 10-325] Tiotropium 2.5 Mcg/Puff [Spiriva 2 puff INHALATION RT-DAILY 01/01/22 01/01/22 History Respimat 2.5 Mcg] metFORMIN HCL ER [Glucophage XR] 500 mg PO HS 01/01/22 01/01/22 History Allergies Allergy/AdvReac Type Severity Reaction Status Date / Time doxycycline Allergy Rash/Hives Verified 01/01/22 18:18 Penicillins Allergy Rash/Hives, Verified 01/01/22 18:18 "hard to heal" Sulfa (Sulfonamide Allergy Rash/Hives,"hard Verified 01/01/22 18:18 Antibiotics) to heal" wool Allergy Rash/Hives, Verified 01/01/22 18:18 itching ivory soap Allergy Rash/Hives, Uncoded 01/01/22 11:48 itching Physical Examination - Vital Signs Vital Signs: Vital Signs Temp Pulse Pulse Resp BP BP Pulse Ox 01/02/22 08:05 100 01/02/22 07:54 96 01/02/22 04:00 98.8 F 106 H 24 104/61 91 L 01/02/22 00:00 99.7 F H 107 H 18 108/64 94 L 01/01/22 20:08 107 H 01/01/22 20:00 97.8 F 103 H 20 90/55 95 01/01/22 19:51 107 H 01/01/22 19:45 97.8 F 105 H 22 90/55 95 01/01/22 18:17 106 H 22 105/58 97 01/01/22 17:10 110 H 22 108/73 95 Intake and Output 01/01/22 01/02/22 01/02/22 22:59 06:59 14:59 Intake Total 240 140 Balance 240 140 Intake: Oral 240 140 Other: Voiding Method Toilet # Voids 3 Weight 127.006 kg Patient is a middle aged female, who appears older than her stated age. Patient is alert awake, fully oriented to time place and person. Speech and language functions are normal. Patient can name and repeat very well. No aphasia or dysarthria. Attention, concentration and fund of knowledge is adequate. On cranial examination, pupils are equal, round and reacting to light, visual goetz are full on confrontation, with no neglect on double simultaneous stimulation. Her extraocular muscles are intact with no nystagmus. Face is symmetric, tongue protrudes to the midline. Palatal elevation and sensation normal, hearing and shoulder shrug normal, facial sensation normal. Shoulder shrug normal. On muscle strength testing, there is right-sided pronation, only 5 drift. The strength is normal in arms and legs distally and proximally, with the exception of right ankle dorsiflexion which is 4+5-. Rest of the muscle strength testing is normal including hip flexion, knee extension, and upper extremities bilaterally. Deep tendon reflexes are symmetric, 1+ at biceps, 1+ brachioradialis, absent at the knees, trace ankles and plantar is up on the right, downgoing left. Sensory to touch is equal with no neglect. Cerebellar function showed no ataxia for [id number] testing. No dysdiadocho kinesia. Tone and bulk of muscles normal. Gait not checked On general examination, there is no carotid bruit or murmur, S1-S2 audible. Abdomen is soft nontender. No organomegaly, bowel sounds present. Chest is clear. Mild peripheral edema. Patient has mild clubbing of the fingers. Results - Laboratory Findings CBC and BMP: 01/01/22 13:22 01/01/22 13:22 Abnormal Lab Findings: Abnormal Labs 01/01/22 01/01/22 01/01/22 13:22 13:22 13:22 WBC 10.8 H RBC 2.93 L Hgb 7.5 L Hct 23.6 L RDW 16.5 H Neutrophils # 8.7 H PT INR APTT Sodium 132 L Carbon Dioxide 19 L BUN 43 H Creatinine 2.13 H Glucose 105 H POC Glucose (mg/dL) Troponin I 0.038 H* Albumin 3.4 L HDL Cholesterol 01/01/22 01/01/22 01/01/22 13:22 16:09 20:14 WBC RBC Hgb Hct RDW Neutrophils # PT 15.6 H INR 1.5 H APTT 86.0 H Sodium Carbon Dioxide BUN Creatinine Glucose POC Glucose (mg/dL) 115 H Troponin I Albumin HDL Cholesterol 35.60 L 01/02/22 01/02/22 05:58 11:48 WBC RBC Hgb Hct RDW Neutrophils # PT INR APTT Sodium Carbon Dioxide BUN Creatinine Glucose POC Glucose (mg/dL) 140 H 123 H Troponin I Albumin HDL Cholesterol Assessment and Plan Assessment: * Acute ischemic stroke, multiple small areas, involving left frontal parietal region, most likely cardioembolic in nature. * Rule out endocarditis. 2-D echo revealed possibility of vegetation. Blood cultures are also positive. * Recurrent adenocarcinoma of the lung, status post chemotherapy in 2016 and 2020. Repeat lung biopsy November 2021 again showing adenocarcinoma. * Tobacco use * COPD * Borderline Diabetes * History of DVT/pulmonary embolism on Lovenox. * Seizure disorder * History of obstructive sleep apnea * Hypothyroidism * Hypercoagulable state with history of protein S and protein C deficiency. Plan: * MRI of the brain revealed small areas of acute CVA left parietal and left frontal region. No hemorrhagic transformation. Age-related atrophic and chronic small vessel ischemic change. I personally reviewed MRI agree with the findings. However there is also evidence of a possible tiny subacute ischemic lesion in the right posterior temporal/occipital cortical region. The pattern of ischemic stroke is highly embolic in nature. * Carotid Doppler revealed suboptimal study without hemodynamically significant stenosis in either ICA. Antegrade flow in both vertebral arteries. * 2-D echo revealed calcified mitral valve, possibility of vegetation cannot be totally excluded. If clinically indicated, a RONALD would be helpful. * We will consult cardiology for RONALD. * Patient's blood cultures also positive for gram-positive cocci. Patient currently on vancomycin, Rocephin 2 g every 24 hours and azithromycin. Suggest ID consultation. * Patient has significant hypercoagulable state. MRI showed no hemorrhagic conversion. Resume Lovenox 200 mg daily. Patient also on aspirin 325 mg daily. * Oncology following for lung cancer. Pulmonary also on board. * Dr. Epstein will assume neurology service over the weekend. Thank you for the consult. Time with Patient: Greater than 30
[2022-01-03 06:16] LABS: Glucose,Whole Blood 176 mg/dL (70-110)
[2022-01-03] MEDS: PANTOPRAZOLE 40 MG TABLET PO SCH (06:48)
[2022-01-03] MEDS: INSULIN ASPART (NovoLOG) 100 UNIT/ML VIAL SQ SCH ×4 (06:48→21:00)
[2022-01-03] MEDS: LEVOTHYROXINE 25 MCG TAB PO SCH (06:48)
[2022-01-03] MEDS: ALBUTEROL HFA INHALER INHALATION PRN ×4 (07:51→19:39)
[2022-01-03] MEDS: TIOTROPIUM 2.5 MCG INHALER INHALATION SCH ×3 (07:51→19:39)
[2022-01-03] MEDS: SYMBICORT 80-4.5 MCG INHALER INHALATION SCH ×2 (07:51→19:38)
[2022-01-03] MEDS: methylPREDNISolone SOD SUCCI 125 MG/2 ML VIAL IV SCH ×2 (09:11→20:51)
[2022-01-03] MEDS: MONTELUKAST 10 MG TAB PO SCH (09:12)
[2022-01-03] MEDS: ASPIRIN 325 MG TAB PO SCH ×3 (09:12→20:50)
[2022-01-03] MEDS: BACLOFEN 10 MG TAB PO SCH (09:12)
[2022-01-03] MEDS: NICOTINE 14MG/24HR PATCH TRANSDERM SCH (09:12)
[2022-01-03] MEDS: CITALOPRAM HYDROBROMIDE 20 MG TAB PO SCH (09:12)
[2022-01-03] MEDS: POTASSIUM CHLORIDE ER 20 MEQ TAB.ER PO SCH (09:12)
[2022-01-03] MEDS: FUROSEMIDE 20 MG TAB PO SCH (09:12)
[2022-01-03] MEDS: ENOXAPARIN 100 MG/ML SYRINGE SQ SCH (09:13)
--- NOTE | 2022-01-03 10:31 | P.PN ---
Subjective Progress Note Date: 01/03/22 The patient was sleeping, but arousable. She appeared to be fairly comfortable at rest, without oxygen. She feels that her right upper extremity is mildly stronger. Objective - Vital Signs Vital signs: Vital Signs Temp 98.2 F 01/03/22 04:00 Pulse 94 01/03/22 04:00 Resp 24 01/03/22 04:00 BP 135/65 01/03/22 04:00 Pulse Ox 94 L 01/03/22 04:00 FiO2 Intake & Output 01/02/22 01/03/22 01/03/22 18:59 06:59 18:59 Intake Total 530 980 Output Total 400 Balance 530 580 Weight 125.3 kg Intake: Intake, IV Titration 500 Amount Vancomycin 2,000 mg In 500 Sodium Chloride 0.9% 500 ml 500 ml @ 167 mls/hr IVPB ONCE ONE Rx#: [id number] Oral 530 480 Output: Urine 400 Other: Voiding Method Toilet Toilet # Voids 2 1 # Bowel Movements 1 - Constitutional General appearance: Present: no acute distress - EENT Eyes: Present: EOMI ENT: Present: hearing grossly normal, normal oropharynx - Respiratory Respiratory: left: diminished (Only transmitted sounds) - Cardiovascular Rhythm: regular Heart sounds: normal: S1, S2 - Gastrointestinal General gastrointestinal: Present: normal bowel sounds, soft - Integumentary Integumentary: Present: normal - Neurologic Neurologic: Present: CNII-XII intact, focal deficits (Right upper extremity distally 4+/5. Right lower extremity distally about 4/5.) - Musculoskeletal Musculoskeletal: Present: generalized weakness - Psychiatric Psychiatric: Present: A&O x's 3, appropriate affect - Labs CBC & Chem 7: 01/01/22 13:22 01/01/22 13:22 Labs: Abnormal Lab Results - Last 24 Hours (Table) 01/01/22 01/02/22 01/02/22 Range/Units 13:22 10:24 11:48 POC Glucose (mg/dL) 123 H (70-110) mg/dL HDL Cholesterol 35.60 L (40.00-60.00) mg/dL Procalcitonin 0.88 H (0.02-0.09) ng/mL 01/02/22 01/02/22 01/03/22 Range/Units 16:33 20:25 06:14 POC Glucose (mg/dL) 123 H 186 H 176 H (70-110) mg/dL HDL Cholesterol (40.00-60.00) mg/dL Procalcitonin (0.02-0.09) ng/mL Microbiology - Last 24 Hours (Table) 01/01/22 16:09 Blood Culture Gram Stain - Preliminary Blood 01/01/22 16:25 Blood Culture Gram Stain - Preliminary Blood Blood Culture - Preliminary Staphylococcus epidermidis 01/01/22 16:09 Blood Culture - Final Blood 01/01/22 16:25 Blood Culture - Final Blood Assessment and Plan (1) Cerebrovascular accident (CVA) Narrative/Plan: Patient's MRI shows evidence of CVA in the left parietal area, consistent with her symptoms on the right side. There is no evidence of brain metastasis. Defer to the admitting service and urology for further management Current Visit: Yes Status: Acute Code(s): I63.9 - CEREBRAL INFARCTION, UNSPECIFIED SNOMED Code(s): 268464825 (2) Lung consolidation Narrative/Plan: The patient has essentially a whiteout of the left lung, due to atelectasis from cancer progression.. However she appears to be fairly well compensated. She seemed to be quite comfortable at rest, and did not feel that her respiratory status was any different than at home. At home she uses oxygen only at night. Therefore acute intervention for the same does not appear to be required Current Visit: Yes Status: Acute Code(s): J18.1 - LOBAR PNEUMONIA, UNSPECIFIED ORGANISM SNOMED Code(s): 71409830 (3) Non-small cell lung cancer (NSCLC) Narrative/Plan: The patient has known progression. At this time biomarker testing is pending to determine next line of treatment. She has follow-up scheduled in the office. Current Visit: Yes Status: Chronic Priority: High Code(s): C34.90 - MALIGNANT NEOPLASM OF UNSP PART OF UNSP BRONCHUS OR LUNG SNOMED Code(s): 138750645
--- NOTE | 2022-01-03 11:22 | P.PN ---
Subjective Progress Note Date: 01/03/22 Principal diagnosis: CVA patient is hemodynamically stable MRI was finalized and the patient reported at the bedside. Patient still reporting right lower extremity weakness without changes from admission Objective - Vital Signs Vital signs: Vital Signs Temp 98.1 F 01/03/22 08:00 Pulse 95 01/03/22 08:00 Resp 22 01/03/22 08:00 BP 106/52 01/03/22 08:00 Pulse Ox 95 01/03/22 08:00 FiO2 Intake & Output 01/02/22 01/03/22 01/03/22 18:59 06:59 18:59 Intake Total 530 980 Output Total 400 Balance 530 580 Weight 125.3 kg Intake: Intake, IV Titration 500 Amount Vancomycin 2,000 mg In 500 Sodium Chloride 0.9% 500 ml 500 ml @ 167 mls/hr IVPB ONCE ONE Rx#: [id number] Oral 530 480 Output: Urine 400 Other: Voiding Method Toilet Toilet Toilet # Voids 2 1 # Bowel Movements 1 - Exam Gen.: in stated age, no acute distress Heart: Normal S1-S2 Lungs: Clear to auscultation bilaterally Abdomen: Soft, no tenderness, positive bowel sounds in all 4 quadrant no guarding or rebound Skin: No new rash Psych: Alert and oriented 3 Neuro: Right sided hemiparesis right upper extremity 3/5 compared with 5 over 5 on the left side. Left lower extremity 5-5. Right lower extremity 1/5 Lower extremity 1+ edema bilaterally improved for patient - Labs CBC & Chem 7: 01/01/22 13:22 01/01/22 13:22 Labs: Abnormal Lab Results - Last 24 Hours (Table) 01/01/22 01/02/22 01/02/22 Range/Units 13:22 10:24 11:48 POC Glucose (mg/dL) 123 H (70-110) mg/dL HDL Cholesterol 35.60 L (40.00-60.00) mg/dL Procalcitonin 0.88 H (0.02-0.09) ng/mL 01/02/22 01/02/22 01/03/22 Range/Units 16:33 20:25 06:14 POC Glucose (mg/dL) 123 H 186 H 176 H (70-110) mg/dL HDL Cholesterol (40.00-60.00) mg/dL Procalcitonin (0.02-0.09) ng/mL Microbiology - Last 24 Hours (Table) 01/01/22 16:09 Blood Culture Gram Stain - Preliminary Blood 01/01/22 16:25 Blood Culture Gram Stain - Preliminary Blood Blood Culture - Preliminary Staphylococcus epidermidis 01/01/22 16:09 Blood Culture - Final Blood 01/01/22 16:25 Blood Culture - Final Blood Assessment and Plan Assessment: 1. Acute left perirectal CVA. 2. Right-sided hemiparesis. 3. History of lung cancer status post treatment. 4. COPD. 5. Positive blood cultures likely contaminant. Plan discussed with the patient and she agreed to continue current management with evidence based medicine, would optimize her risk factors, would consult with physical therapy and physical medicine and rehab regarding discharge planning to improve her functional status. Patient to follow up outpatient with hematology oncology with current MRI did not show any signs of malignancies or metastases and patient was reassured.
[2022-01-03 11:58] LABS: Glucose,Whole Blood 184 mg/dL (70-110)
--- NOTE | 2022-01-03 12:28 | P.PN ---
Subjective Progress Note Date: 01/03/22 Principal diagnosis: CVA. Pulmonary consult dated 01/02/2022. 56-year-old female well-known to our service. Back in 2016, the patient had a diagnosis of lung cancer made, involving the left lung, adenocarcinoma, and apparently received radiation therapy, and chemotherapy. Subsequent to that, she had disease recurrence in 2020, and at that time, also receive additional chemotherapy and radiation therapy. She follows with Dr. Maria and Dr. Swann. She also sees my partner for her lung disease. She comes into the hospital, on January 01, complaining of right arm and right leg weakness, and numbness. She apparently was being evaluated for possible CVA. She did have a computed tomography scan of the brain which did not reveal anything acute. He is scheduled to have an MRI. Recently, in November of this year, my partner we biopsied her left lung, and again discovered recurrent adenocarcinoma. Sampling was sent for genetic testing, to determine if the patient is a candidate for immunotherapy/targeted therapy. The patient is currently not having any respiratory issues at this time. She is on room air. White count 10.8, he will been 7.5, hematocrit 23.6, and platelet count 165,000. PT is 15.6, with an INR 1.5, and a PTT of 86. Sodium 132, potassium 4.2, chlorides 105, CO2 19, BUN 43, and creatinine 2.13. Troponin was 0.038. Albumin 3.4. Chest x-ray showed near complete opacification of the left chest, without obvious cutoff sign of the left mainstem bronchus. Brain CT showed no acute intracranial hemorrhage or midline shift. There was no significant change from prior computed tomography scan done in October of last year. The chest CT showed cutoff of the left upper lobe bronchus, with airless throughout the entire left upper lobe. There is also partial obstruction of the left lower lobe bronchus. Progress note dated 01/03/2022. 56-year-old female seen yesterday in consultation. Please see the note above. The patient was initially diagnosed with lung cancer back in 2016. She follows with Dr. Maria and Dr. Swann, as well as my partner. She had a recent repeat lung biopsy done in November of this year. She was admitted to the hospital with weakness and numbness to the right upper extremity and right lower extremity. She was not having any lung issues at this time. MRI showed small areas of acute CVA involving the left parietal and left frontal parietal regions. There is no hemorrhagic transformation. No enhancing lesions were noted. No new labs today. The patient has been seen by oncology, and neurology. Objective - Vital Signs Vital signs: Vital Signs Temp 98.1 F 01/03/22 08:00 Pulse 95 01/03/22 08:00 Resp 22 01/03/22 08:00 BP 106/52 01/03/22 08:00 Pulse Ox 95 01/03/22 08:00 FiO2 Intake & Output 01/02/22 01/03/22 01/03/22 18:59 06:59 18:59 Intake Total 530 980 Output Total 400 Balance 530 580 Weight 125.3 kg Intake: Intake, IV Titration 500 Amount Vancomycin 2,000 mg In 500 Sodium Chloride 0.9% 500 ml 500 ml @ 167 mls/hr IVPB ONCE ONE Rx#: [id number] Oral 530 480 Output: Urine 400 Other: Voiding Method Toilet Toilet Toilet # Voids 2 1 1 # Bowel Movements 1 - Exam No acute distress, oriented 3. Not requiring any supplemental oxygen. Room air saturation 95 %. HEENT examination is grossly unremarkable. Neck supple. Full range of motion. No adenopathy thyromegaly or neck vein distention. Cardiovascular examination reveals regular rhythm rate. S1-S2 normal. No S3 or S4. No discernible murmur noted. Heart rate 90 bpm. Heart sounds are distant. Lungs reveal diminished left-sided breath sounds. Scattered mild rhonchi. No wheezes. No crackles. Abdomen soft bowel sounds are heard. No masses or tenderness. Extremities are intact. No cyanosis clubbing or edema. Skin is without rash or lesion. Neurologic examination is brief but nonfocal. - Labs CBC & Chem 7: 01/01/22 13:22 01/01/22 13:22 Labs: Abnormal Lab Results - Last 24 Hours (Table) 01/02/22 01/02/22 01/02/22 Range/Units 10:24 16:33 20:25 POC Glucose (mg/dL) 123 H 186 H (70-110) mg/dL Procalcitonin 0.88 H (0.02-0.09) ng/mL 07/16/22 07/16/22 Range/Units 06:14 11:56 POC Glucose (mg/dL) 176 H 184 H (70-110) mg/dL Procalcitonin (0.02-0.09) ng/mL Microbiology - Last 24 Hours (Table) 01/01/22 16:09 Blood Culture Gram Stain - Preliminary Blood 01/01/22 16:25 Blood Culture Gram Stain - Preliminary Blood Blood Culture - Preliminary Staphylococcus epidermidis 01/01/22 16:09 Blood Culture - Final Blood 01/01/22 16:25 Blood Culture - Final Blood Assessment and Plan Assessment: Right upper extremity and right lower extremity weakness, currently being evaluated by the primary service. MRI scan of the brain showed an acute CVA involving the left frontal and left frontoparietal region of the brain, without hemorrhagic transformation. Recurrent adenocarcinoma of the lung, status post chemoradiation in 2016 and 2020. Repeat lung biopsy November 2021, again showed adenocarcinoma. Ongoing tobacco use with nicotine addiction. History of COPD. History of CVA. History of diabetes mellitus. History of DVT/pulmonary embolism. Gastroesophageal reflux disease. History of seizure disorder. She of obstructive sleep apnea syndrome. Hypothyroidism. History of proteins S and C deficiency. Plan: Plan dated 01/02/2022. The patient is currently stable from the pulmonary standpoint. I do agree with the ordering of an MRI, to rule out metastases to the brain. The patient unfortunately continues to smoke. She apparently is using nicotine patches. She had a recent lung biopsy done in November of this year, by my partner, which again showed adenocarcinoma. He was initially diagnosed in 2016, treated then, and retreated, 2020. Overall prognosis remains very guarded. Plan dated 01/03/2022. The patient is very stable from the pulmonary standpoint. She remains on room air. The results of the MRI are noted. The patient is being seen by both neurology and oncology. Recent biopsy of the lung, was sent for biomarker testing. This will determine the next line of treatment. Overall prognosis remains very guarded. Additional recommendations and suggestions are forthcoming. Labs, x-rays, and medications are all reviewed. Time with Patient: Less than 30
[2022-01-03] MEDS ORDERED: VANCOMYCIN IV PER PHARMACY 1 EACH MISC MISCELLANE PRN (13:18)
--- NOTE | 2022-01-03 13:53 | P.CRDCN ---
History of Present Illness Consult date: 01/03/22 History of present illness: The patient is a 56-year-old female with past medical history including lung cancer, diabetes, PE, and CVA/TIA, who presented to the emergency room with right-sided weakness. Her symptoms initially started around 4 PM on December 31 with numbness in her right extremities and headache. When she awoke from her sleep on early January 01 she had significant right arm weakness. Initial CT of the brain showed no acute process. Follow-up MRI of the brain shows small areas of acute CVA in the left parietal and left frontal parietal regions. Cardiology was consulted after echocardiogram shows possible vegetation on the mitral valve. DIAGNOSTICS: EKG shows sinus tachycardia CT of the chest shows partial left lower lobe bronchus obstruction with mild left lower lobe atelectasis. Scattered solid pulmonary nodules and subcentimeter mediastinal lymph nodes. Coronary calcifications noted as well as mitral valve calcifications. No effusion. Carotid Doppler shows no significant disease Echocardiogram shows normal ejection fraction with calcified mitral valve. Possible vegetation. PAST MEDICAL HISTORY: Lung cancer, diabetes, pulmonary embolism, prior CVA, hypertension, obesity REVIEW OF SYSTEMS: No fever or chills. No cough or expectoration. No diaphoresis. Patient denies headache, dizziness, blurred vision, double vision. Patient denies any stomach discomfort. No nausea, vomiting. No hematochezia. No hematemesis. Denies any black stools or blood in his stools. Denies dysuria or hematuria. Positive for right-sided weakness. No difficulty breathing. No chest pain. PHYSICAL EXAMINATION: This is a 56-year-old female in no apparent distress at the time of my examination. HEENT: Head is atraumatic, normocephalic. Pupils are equal, round. Sclerae anicteric. Conjunctivae are clear. Mucous membranes of the mouth are moist. Neck is supple. There is no jugular venous distention. No carotid bruit is heard. CHEST EXAMINATION: Bilateral expiratory wheezes. No chest wall tenderness is noted on palpation or with deep breathing. HEART EXAMINATION: Heart regular rate and rhythm. S1, S2 heard. No murmurs, gallops or rub. ABDOMEN: Soft, nontender. Bowel sounds are heard. No organomegaly noted. EXTREMITIES: 2+ peripheral pulses with no evidence of peripheral edema and no calf tenderness noted. NEUROLOGIC EXAMINATION: Patient is awake, alert and oriented x3. FINAL ASSESSMENT AND PLAN: Acute CVA, left parietal with residual right-sided weakness Possible vegetation on mitral valve, proceed with RONALD on Wednesday with primary post commander Dr. Toro Possible history of paroxysmal atrial fibrillation based on previous cardiology consult History of non-small cell lung cancer Acute pneumonia with obstructive pneumonitis, on antibiotics History of DVT/PE, on anticoagulation PLAN: Continue anticoagulation and monitoring for atrial fibrillation Proceed with RONALD on Wednesday with primary post commander Further recommendations will be based upon clinical course I am dictating on behalf of Dr Gaston Capellan's history/physical and assessment/plan. Past Medical History Past Medical History: Blood Disorder, Cancer, COPD, CVA/TIA, Diabetes Mellitus, Deep Vein Thrombosis (DVT), GERD/Reflux, Pneumonia, Pulmonary Embolus (PE), Seizure Disorder, Sleep Apnea/CPAP/BIPAP, Thyroid Disorder Additional Past Medical History / Comment(s): L lung cancer with radiation/chemo and pt completed 01/2021, TIA-no residual effects, blood clot left leg and PE left lung, BLANCA with Cpap, last seizure APPROX 2013 bronchitis, protein S and C deficiency, bilateral ankle/pedal edema, past hx falls, DDD, chronic back and bilateral foot pain, weakness in rt legs thought d/t pinched nerve in back, vertigo.COUGHED UP BLOOD History of Any Multi-Drug Resistant Organisms: None Reported Past Surgical History: Tubal Ligation, Uterine Ablation Additional Past Surgical History / Comment(s): D&C, bronchoscopy with L lung biopsy x 2 Past Anesthesia/Blood Transfusion Reactions: No Reported Reaction Past Psychological History: Depression Smoking Status: Current every day smoker Past Alcohol Use History: None Reported Past Drug Use History: None Reported - Past Family History Mother Family Medical History: CVA/TIA Additional Family Medical History / Comment(s): Mother of a CVA at the age of 71 yrs. Brother(s) Family Medical History: No Reported History Additional Family Medical History / Comment(s): Patient has no children. Father Additional Family Medical History / Comment(s): Father was an alcoholic and drug addict. Medications and Allergies Home Medications Medication Instructions Recorded Confirmed Type Citalopram Hydrobromide [CeleXA] 20 mg PO DAILY 11/16/18 01/01/22 History Pantoprazole Sodium 20 mg PO DAILY 11/16/18 01/01/22 History Albuterol Sulfate [Ventolin HFA] 1 - 2 puff INHALATION RT-Q6H PRN 11/14/20 01/01/22 History Levothyroxine Sodium [Synthroid] 25 mcg PO AC-BRKFST 11/14/20 01/01/22 History Atorvastatin [Lipitor] 40 mg PO HS 01/02/21 01/01/22 History Aspirin 325 mg PO DAILY 10/06/21 01/01/22 History Baclofen [Lioresal] 20 mg PO DAILY 10/06/21 01/01/22 History Enoxaparin [Lovenox] 200 mg SQ DAILY 10/06/21 01/01/22 History Ergocalciferol [Vitamin D2 (1250 1,250 mcg PO TU 10/06/21 01/01/22 History Mcg = 23602 Iu)] Montelukast [Singulair] 10 mg PO DAILY 10/06/21 01/01/22 History levETIRAcetam [Keppra] 750 mg PO BID 10/06/21 01/01/22 History Gabapentin 300 mg PO HS #3 cap 10/20/21 01/01/22 Rx Potassium Chloride [Klor-Con M10] 20 meq PO DAILY 12/09/21 01/01/22 History Fluticasone/Vilanterol [Breo 1 puff INHALATION RT-DAILY 01/01/22 01/01/22 History Ellipta 100-25 Mcg Inhaler] Furosemide [Lasix] 20 mg PO DAILY 01/01/22 01/01/22 History HYDROcodone/APAP 10-325MG [[place] 1 tab PO HS PRN 01/01/22 01/01/22 History 10-325] Tiotropium 2.5 Mcg/Puff [Spiriva 2 puff INHALATION RT-DAILY 01/01/22 01/01/22 History Respimat 2.5 Mcg] metFORMIN HCL ER [Glucophage XR] 500 mg PO HS 01/01/22 01/01/22 History Allergies Allergy/AdvReac Type Severity Reaction Status Date / Time doxycycline Allergy Rash/Hives Verified 01/01/22 18:18 Penicillins Allergy Rash/Hives, Verified 01/01/22 18:18 "hard to heal" Sulfa (Sulfonamide Allergy Rash/Hives,"hard Verified 07/14/22 18:18 Antibiotics) to heal" wool Allergy Rash/Hives, Verified 01/01/22 18:18 itching ivory soap Allergy Rash/Hives, Uncoded 01/01/22 11:48 itching Physical Exam Vitals: Vital Signs Temp Pulse Pulse Resp BP Pulse Ox 01/03/22 13:13 18 01/03/22 12:00 71 18 106/56 99 01/03/22 08:00 98.1 F 95 22 106/52 95 01/03/22 04:00 98.2 F 94 24 135/65 94 L 01/03/22 02:00 16 01/02/22 23:38 98.1 F 92 16 91/59 95 01/02/22 20:00 98.7 F 105 H 20 99/57 94 L 01/02/22 19:32 100 01/02/22 19:17 104 H 01/02/22 16:00 97.5 F L 95 20 93/59 97 01/02/22 15:18 100 01/02/22 15:08 100 01/02/22 14:00 22 Intake and Output 01/02/22 01/03/22 01/03/22 22:59 06:59 14:59 Intake Total 950 120 Output Total 400 Balance 550 120 Intake: Intake, IV Titration 500 Amount Vancomycin 2,000 mg In 500 Sodium Chloride 0.9% 500 ml 500 ml @ 167 mls/hr IVPB ONCE ONE Rx#: [id number] Oral 450 120 Output: Urine 400 Other: Voiding Method Toilet Toilet # Voids 1 1 1 # Bowel Movements 1 Weight 125.3 kg Results 01/01/22 13:22 01/01/22 13:22 Current Medications Generic Name Dose Route Start Last Admin Trade Name Freq PRN Reason Stop Dose Admin Hydrocodone Bitart/Acetaminophen 1 each 01/02/22 08:51 01/02/22 21:12 Hydrocodone/Apap 10-325mg 1 Each Tab PO 1 each HS PRN Administration Pain Albuterol Sulfate 1 - 2 puff 01/02/22 08:51 01/03/22 11:27 Albuterol Hfa Inhaler INHALATION 2 puff RT-Q6H PRN Administration Shortness Of Breath Albuterol Sulfate 2.5 mg 01/02/22 10:52 01/02/22 19:17 Albuterol Nebulized 2.5 Mg/3 Ml INHALATION 2.5 mg RT-QID PRN Administration Shortness Of Breath Or Wheezing Albuterol Sulfate 2.5 mg 01/02/22 10:52 Albuterol Nebulized 2.5 Mg/3 Ml INHALATION RT-Q2H PRN Shortness Of Breath Or Wheezing Aspirin 325 mg 01/03/22 21:00 Aspirin 325 Mg Tab PO HS ZARIA Atorvastatin Calcium 40 mg 01/02/22 21:00 01/02/22 21:12 Atorvastatin 40 Mg Tab PO 40 mg HS ZARIA Administration Azithromycin 500 mg 01/02/22 16:00 01/02/22 17:04 Azithromycin 500 Mg Tab PO 01/03/22 16:01 500 mg DAILY@1600 ZARIA Administration Protocol Baclofen 20 mg 01/02/22 09:00 01/03/22 09:12 Baclofen 10 Mg Tab PO 20 mg DAILY ZARIA Administration Budesonide/Formoterol Fumarate 2 puff 01/03/22 08:00 01/03/22 07:51 Symbicort 80-4.5 Mcg Inhaler INHALATION 2 puff RT-BID ZARIA Administration Citalopram Hydrobromide 20 mg 01/02/22 09:00 01/03/22 09:12 Citalopram Hydrobromide 20 Mg Tab PO 20 mg DAILY ZARIA Administration Enoxaparin Sodium 200 mg 01/02/22 09:00 01/03/22 09:13 Enoxaparin 100 Mg/Ml Syringe SQ 200 mg DAILY ZARIA Administration Furosemide 20 mg 01/02/22 09:00 01/03/22 09:12 Furosemide 20 Mg Tab PO 20 mg DAILY ZARIA Administration Gabapentin 300 mg 01/02/22 21:00 01/02/22 21:12 Gabapentin 300 Mg Cap PO 300 mg HS ZARIA Administration Ceftriaxone Sodium 2 gm/ 50 mls @ 100 mls/hr 01/02/22 09:00 01/03/22 09:12 Sodium Chloride IVPB 01/05/22 09:29 100 mls/hr Q24HR ZARIA Administration Protocol Insulin Aspart 0 unit 01/02/22 12:30 01/03/22 12:28 Insulin Aspart (Novolog) 100 Unit/Ml Vial SQ 3 unit ACHS ZARIA Administration Protocol Levetiracetam 750 mg 01/02/22 09:00 01/03/22 09:12 Levetiracetam 750 Mg Tab PO 750 mg BID ZARIA Administration Levothyroxine Sodium 25 mcg 01/03/22 07:30 01/03/22 06:48 Levothyroxine 25 Mcg Tab PO 25 mcg AC-BRKFST ZARIA Administration Methylprednisolone Sodium Succinate 60 mg 01/02/22 14:15 01/03/22 09:11 Methylprednisolone Sod Succi 125 Mg/2 Ml Vial IV 60 mg Q12HR ZARIA Administration Miscellaneous Information 1 each 01/01/22 15:06 Pneumonia Protocol Utilized 1 Each Misc PO ONCE PRN Per Protocol Miscellaneous Information 1 each 01/01/22 18:26 Rx Info: Iv Contrast Was Given 1 Each Misc MISCELLANE 01/03/22 18:27 DAILY PRN Per Protocol Miscellaneous Information 1 each 01/03/22 13:18 Vancomycin Iv Per Pharmacy 1 Each Misc MISCELLANE DIRECTED PRN Per Protocol Protocol Montelukast Sodium 10 mg 01/02/22 09:00 01/03/22 09:12 Montelukast 10 Mg Tab PO 10 mg DAILY ZARIA Administration Nicotine 1 patch 01/02/22 09:30 01/03/22 09:12 Nicotine 14mg/24hr Patch TRANSDERM 1 patch DAILY ZARIA Administration Pantoprazole Sodium 40 mg 01/02/22 09:00 01/03/22 06:48 Pantoprazole 40 Mg Tablet PO 40 mg DAILY@0730 ZARIA Administration Potassium Chloride 20 meq 01/02/22 09:00 01/03/22 09:12 Potassium Chloride Er 20 Meq Tab.Er PO 20 meq DAILY ZARIA Administration Tiotropium [place] 2 puff 01/03/22 20:00 Tiotropium 2.5 Mcg Inhaler INHALATION RT-HS ZARIA Intake and Output 01/02/22 01/03/22 01/03/22 22:59 06:59 14:59 Intake Total 950 120 Output Total 400 Balance 550 120 Intake: Intake, IV Titration 500 Amount Vancomycin 2,000 mg In 500 Sodium Chloride 0.9% 500 ml 500 ml @ 167 mls/hr IVPB ONCE ONE Rx#: [id number] Oral 450 120 Output: Urine 400 Other: Voiding Method Toilet Toilet # Voids 1 1 1 # Bowel Movements 1 Weight 125.3 kg 01/01/22 13:22 01/01/22 13:22
--- NOTE | 2022-01-03 15:51 | P.PN ---
Subjective Progress Note Date: 01/03/22 The patient is seen in neurologic follow-up on January 03, 2022, via telemedicine. The chart and imaging have been reviewed. This morning, the patient reports she is having difficulty moving her right hand and foot. She says they're both a little bit better than yesterday. She feels she can move her right hand better than the foot. She also notes right-sided numbness. Does states that she was able to get up and walk to the bathroom. The patient reports that for the past 1-2 weeks, she has been having episodes of blurred vision. In addition, she also has been having headaches every 2-3 days for the past week. She says that on Wednesday, she had a very severe headache. She says that after getting up she noted that she was unable to use her right arm. She subsequently came into the hospital. Objective - Vital Signs Vital signs: Vital Signs Temp 98.1 F 01/03/22 08:00 Pulse 95 01/03/22 08:00 Resp 22 01/03/22 08:00 BP 106/52 01/03/22 08:00 Pulse Ox 95 01/03/22 08:00 FiO2 Intake & Output 01/02/22 01/03/22 01/03/22 18:59 06:59 18:59 Intake Total 530 980 Output Total 400 Balance 530 580 Weight 125.3 kg Intake: Intake, IV Titration 500 Amount Vancomycin 2,000 mg In 500 Sodium Chloride 0.9% 500 ml 500 ml @ 167 mls/hr IVPB ONCE ONE Rx#: [id number] Oral 530 480 Output: Urine 400 Other: Voiding Method Toilet Toilet Toilet # Voids 2 1 # Bowel Movements 1 - Exam General: The patient is reclining in the bed. She is in no acute distress. HEENT: Head is atraumatic, normocephalic. Fundus not visualized. There is no scleral icterus. Mucous membranes are moist. Neck: Supple without carotid bruits Heart: Regular rate and rhythm Lungs: Wheezing throughout Neurological examination Mental status: The patient is awake, alert and oriented 3. Her speech is clear. There is no dysarthria or aphasia. Cranial nerves: 2-12 intact as tested Motor: Left upper and lower extremity strength 5/5. Hip strength 3/5. Right hip flexor 2-3/5. Deep tendon reflexes: 2+/4+ and the left upper extremity. Right biceps reflex 3+/4+. Right brachioradialis reflex 2+/4+. Bilateral patellar reflexes 1- 2+/4+. Coordination: Finger to nose testing is intact Sensation: There is right-sided dysesthesia with light touch. Sensory testing is inconsistent. Gait: Not assessed - Labs CBC & Chem 7: 01/01/22 13:22 01/01/22 13:22 Labs: Abnormal Lab Results - Last 24 Hours (Table) 01/01/22 01/02/22 01/02/22 Range/Units 13:22 10:24 11:48 POC Glucose (mg/dL) 123 H (70-110) mg/dL HDL Cholesterol 35.60 L (40.00-60.00) mg/dL Procalcitonin 0.88 H (0.02-0.09) ng/mL 01/02/22 01/02/22 01/03/22 Range/Units 16:33 20:25 06:14 POC Glucose (mg/dL) 123 H 186 H 176 H (70-110) mg/dL HDL Cholesterol (40.00-60.00) mg/dL Procalcitonin (0.02-0.09) ng/mL Microbiology - Last 24 Hours (Table) 01/01/22 16:09 Blood Culture Gram Stain - Preliminary Blood 01/01/22 16:25 Blood Culture Gram Stain - Preliminary Blood Blood Culture - Preliminary Staphylococcus epidermidis 01/01/22 16:09 Blood Culture - Final Blood 01/01/22 16:25 Blood Culture - Final Blood Assessment and Plan Assessment: 1. Acute multifocal left parietal infarct 2. 2-D echocardiogram with evidence of possible vegetation-possible septic emboli-possible endocarditis 3. Recurrent adenocarcinoma of the lung 4. Positive blood cultures 5. Tobacco use 6. Seizure disorder Plan: 1. Continue current medical regime 2. Await RONALD might be done on Wednesday 3. Continue to closely monitor Time with Patient: Less than 30 (spent 25 minutes with patient via telemedicine)
[2022-01-03 16:26] LABS: Glucose,Whole Blood 254 mg/dL (70-110)
[2022-01-03] MEDS: AZITHROMYCIN 500 MG TAB PO SCH (17:21)
[2022-01-03] MEDS ORDERED: VANCOMYCIN 2,000 MG in SODIUM CHLORIDE 0.9% 500 ML 500 ML IVPB ONE (18:00)
[2022-01-03] MEDS: ATORVASTATIN 40 MG TAB PO SCH (20:50)
[2022-01-03] MEDS: GABAPENTIN 300 MG CAP PO SCH (20:51)
[2022-01-03 20:58] LABS: Glucose,Whole Blood 241 mg/dL (70-110)
[2022-01-04] MEDS: PANTOPRAZOLE 40 MG TABLET PO SCH (06:25)
[2022-01-04] MEDS: LEVOTHYROXINE 25 MCG TAB PO SCH (06:25)
[2022-01-04] MEDS: INSULIN ASPART (NovoLOG) 100 UNIT/ML VIAL SQ SCH ×4 (06:25→20:01)
[2022-01-04 06:50] LABS: Glucose,Whole Blood 155 mg/dL (70-110)
[2022-01-04] MEDS: SYMBICORT 80-4.5 MCG INHALER INHALATION SCH ×2 (07:27→20:13)
[2022-01-04] MEDS: TIOTROPIUM 2.5 MCG INHALER INHALATION SCH ×2 (07:27→20:13)
[2022-01-04] MEDS: ALBUTEROL HFA INHALER INHALATION PRN ×2 (07:28→20:14)
[2022-01-04 08:12] LABS: Vancomycin,Random 30.8 ug/mL
[2022-01-04] MEDS: ENOXAPARIN 100 MG/ML SYRINGE SQ SCH (09:02)
[2022-01-04] MEDS: CITALOPRAM HYDROBROMIDE 20 MG TAB PO SCH (09:02)
[2022-01-04] MEDS: POTASSIUM CHLORIDE ER 20 MEQ TAB.ER PO SCH (09:02)
[2022-01-04] MEDS: NICOTINE 14MG/24HR PATCH TRANSDERM SCH (09:02)
[2022-01-04] MEDS: FUROSEMIDE 20 MG TAB PO SCH (09:02)
[2022-01-04] MEDS: methylPREDNISolone SOD SUCCI 125 MG/2 ML VIAL IV SCH (09:03)
[2022-01-04] MEDS: MONTELUKAST 10 MG TAB PO SCH (09:03)
[2022-01-04] MEDS: BACLOFEN 10 MG TAB PO SCH (09:03)
--- NOTE | 2022-01-04 09:55 | P.PN ---
Subjective Progress Note Date: 01/04/22 Principal diagnosis: CVA Patient continued to be hemodynamically stable, reporting that she's feeding better today and just completed her evaluation with neurology on telemetry me gallego. No major events reported by nursing staff Objective - Vital Signs Vital signs: Vital Signs Temp 97.5 F L 01/04/22 08:00 Pulse 72 01/04/22 08:00 Resp 20 01/04/22 08:00 BP 99/69 01/04/22 08:00 Pulse Ox 96 01/04/22 08:00 FiO2 Intake & Output 01/03/22 01/04/22 01/04/22 18:59 06:59 18:59 Intake Total 700 Balance 700 Weight 124 kg Intake: Oral 700 Other: Voiding Method Toilet # Voids 1 1 # Bowel Movements 1 - Exam Gen.: in stated age, no acute distress Heart: Normal S1-S2 Lungs: Clear to auscultation bilaterally Abdomen: Soft, no tenderness, positive bowel sounds in all 4 quadrant no gu arding or rebound Skin: No new rash Psych: Alert and oriented 3 Neuro: Right sided hemiparesis right upper extremity 3/5 compared with 5 over 5 on the left side. Left lower extremity 5-5. Right lower extremity 1/5 Lower extremity 1+ edema bilaterally improved for patient - Labs CBC & Chem 7: 01/01/22 13:22 01/04/22 06:50 Labs: Abnormal Lab Results - Last 24 Hours (Table) 01/03/22 01/03/22 01/03/22 Range/Units 11:56 16:24 20:27 Creatinine (0.52-1.04) mg/dL POC Glucose (mg/dL) 184 H 254 H 241 H (70-110) mg/dL 01/04/22 01/04/22 Range/Units 06:23 06:50 Creatinine 1.81 H (0.52-1.04) mg/dL POC Glucose (mg/dL) 155 H (70-110) mg/dL Assessment and Plan Assessment: 1. Acute left perirectal CVA. 2. Right-sided hemiparesis. 3. History of lung cancer status post treatment. 4. COPD. 5. Positive blood cultures likely contaminant. Patient continued to be hemodynamically stable, maintained on evidence based medicine and cardiology recommended RONALD in the morning. We'll continue monitoring hemodynamic closely. Have patient's follow-up with oncology on outpatient basis. Weight on physical medicine and rehab evaluation and consideration for inpatient rehabilitation at the time of the discharge. Patient in agreement plan discussed with nursing staff at the bedside
--- NOTE | 2022-01-04 10:43 | P.PN ---
Subjective Progress Note Date: 01/04/22 The patient is seen in neurologic follow-up on January 04, 2022, via teleneurology. The patient is seated in the bedside chair. She reportedly slept well. She feels as if her right hand and foot are moving better today. She does not notice any worsening of any symptoms. The patient is seen in neurologic follow-up on January 03, 2022, via telemedicine. The chart and imaging have been reviewed. This morning, the patient reports she is having difficulty moving her right hand and foot. She says they're both a little bit better than yesterday. She feels she can move her right hand better than the foot. She also notes right-sided numbness. Does states that she was able to get up and walk to the bathroom. The patient reports that for the past 1-2 weeks, she has been having episodes of blurred vision. In addition, she also has been having headaches every 2-3 days for the past week. She says that on Wednesday, she had a very severe headache. She says that after getting up she noted that she was unable to use her right arm. She subsequently came into the hospital. Objective - Vital Signs Vital signs: Vital Signs Temp 98.2 F 01/04/22 04:00 Pulse 58 L 01/04/22 04:00 Resp 20 01/04/22 04:00 BP 116/73 01/04/22 04:00 Pulse Ox 99 01/04/22 04:00 FiO2 Intake & Output 01/03/22 01/04/22 01/04/22 18:59 06:59 18:59 Intake Total 700 Balance 700 Weight 124 kg Intake: Oral 700 Other: Voiding Method Toilet # Voids 1 1 # Bowel Movements 1 - Exam Gen.: The patient is seated in the bedside chair. She is well-nourished, well- developed and in no acute distress. HEENT: Head is atraumatic, normocephalic. Fundus not visualized. There is no scleral icterus. Mucous membranes are moist. Neurologic examination Mental status: The patient is awake, alert and oriented 3. Her speech is clear. There is no dysarthria or aphasia. Cranial nerves: 2-12 grossly intact - Labs CBC & Chem 7: 01/01/22 13:22 01/04/22 06:50 Labs: Abnormal Lab Results - Last 24 Hours (Table) 01/03/22 01/03/22 01/03/22 Range/Units 11:56 16:24 20:27 Creatinine (0.52-1.04) mg/dL POC Glucose (mg/dL) 184 H 254 H 241 H (70-110) mg/dL 01/04/22 01/04/22 Range/Units 06:23 06:50 Creatinine 1.81 H (0.52-1.04) mg/dL POC Glucose (mg/dL) 155 H (70-110) mg/dL Assessment and Plan Assessment: 1. Acute multifocal left parietal infarct 2. 2-D echocardiogram with evidence of possible vegetation-possible septic emboli-possible endocarditis 3. Recurrent adenocarcinoma of the lung 4. Positive blood cultures 5. Tobacco use 6. Seizure disorder Plan: 1. Continue current medical regime 2. Await RONALD, to be done on Wednesday 3. Continue to closely monitor Dr. Brooks will assume neurologic coverage of this patient as of January 05 2022 Time with Patient: Less than 30 (spent 10 minutes with patient via telemedicine)
--- NOTE | 2022-01-04 11:40 | P.PN ---
Subjective Progress Note Date: 01/04/22 Principal diagnosis: CVA. Pulmonary consult dated 01/02/2022. 56-year-old female well-known to our service. Back in 2016, the patient had a diagnosis of lung cancer made, involving the left lung, adenocarcinoma, and apparently received radiation therapy, and chemotherapy. Subsequent to that, she had disease recurrence in 2020, and at that time, also receive additional chemotherapy and radiation therapy. She follows with Dr. Maria and Dr. Swann. She also sees my partner for her lung disease. She comes into the hospital, on January 01, complaining of right arm and right leg weakness, and numbness. She apparently was being evaluated for possible CVA. She did have a computed tomography scan of the brain which did not reveal anything acute. He is scheduled to have an MRI. Recently, in November of this year, my partner we biopsied her left lung, and again discovered recurrent adenocarcinoma. Sampling was sent for genetic testing, to determine if the patient is a candidate for immunotherapy/targeted therapy. The patient is currently not having any respiratory issues at this time. She is on room air. White count 10.8, he will been 7.5, hematocrit 23.6, and platelet count 165,000. PT is 15.6, with an INR 1.5, and a PTT of 86. Sodium 132, potassium 4.2, chlorides 105, CO2 19, BUN 43, and creatinine 2.13. Troponin was 0.038. Albumin 3.4. Chest x-ray showed near complete opacification of the left chest, without obvious cutoff sign of the left mainstem bronchus. Brain CT showed no acute intracranial hemorrhage or midline shift. There was no significant change from prior computed tomography scan done in October of last year. The chest CT showed cutoff of the left upper lobe bronchus, with airless throughout the entire left upper lobe. There is also partial obstruction of the left lower lobe bronchus. Progress note dated 01/03/2022. 56-year-old female seen yesterday in consultation. Please see the note above. The patient was initially diagnosed with lung cancer back in 2016. She follows with Dr. Maria and Dr. Swann, as well as my partner. She had a recent repeat lung biopsy done in November of this year. She was admitted to the hospital with weakness and numbness to the right upper extremity and right lower extremity. She was not having any lung issues at this time. MRI showed small areas of acute CVA involving the left parietal and left frontal parietal regions. There is no hemorrhagic transformation. No enhancing lesions were noted. No new labs today. The patient has been seen by oncology, and neurology. Progress note dated 01/04/2022. 56-year-old female seen in consultation on January 02. She is seen today again in room 374. She is resting comfortably. Not requiring any supplemental oxygen. Patient sees my partner, as well as the medical oncologist, and in the past, the radiation oncologist. In November, she had a repeat lung biopsy performed by my partner. She came in with right upper extremity and right lower extremity weakness and numbness. She was found on MRI of the brain to have a left frontal and left frontal parietal CVA, without hemorrhage. The patient has been seen by neurology. She is also been seen by oncology. No new labs today. Steroids were discontinued. Objective - Vital Signs Vital signs: Vital Signs Temp 97.5 F L 01/04/22 08:00 Pulse 72 01/04/22 08:00 Resp 20 01/04/22 08:00 BP 99/69 01/04/22 08:00 Pulse Ox 96 01/04/22 08:00 FiO2 Intake & Output 01/03/22 01/04/22 01/04/22 18:59 06:59 18:59 Intake Total 700 Balance 700 Weight 124 kg Intake: Oral 700 Other: Voiding Method Toilet # Voids 1 1 # Bowel Movements 1 - Exam No acute distress, oriented 3. Not requiring any supplemental oxygen. Room air saturation 96 %. HEENT examination is grossly unremarkable. Neck supple. Full range of motion. No adenopathy thyromegaly or neck vein distention. Cardiovascular examination reveals regular rhythm rate. S1-S2 normal. No S3 or S4. No discernible murmur noted. Heart rate 72 bpm. Heart sounds are distant. Lungs reveal diminished left-sided breath sounds. Scattered mild rhonchi. No wheezes. No crackles. Abdomen soft bowel sounds are heard. No masses or tenderness. Extremities are intact. No cyanosis clubbing or edema. Skin is without rash or lesion. Neurologic examination is brief but nonfocal. - Labs CBC & Chem 7: 01/01/22 13:22 01/04/22 06:50 Labs: Abnormal Lab Results - Last 24 Hours (Table) 01/03/22 01/03/22 01/03/22 Range/Units 11:56 16:24 20:27 Creatinine (0.52-1.04) mg/dL POC Glucose (mg/dL) 184 H 254 H 241 H (70-110) mg/dL 01/04/22 01/04/22 Range/Units 06:23 06:50 Creatinine 1.81 H (0.52-1.04) mg/dL POC Glucose (mg/dL) 155 H (70-110) mg/dL Assessment and Plan Assessment: Right upper extremity and right lower extremity weakness, currently being evaluated by the primary service. MRI scan of the brain showed an acute CVA involving the left frontal and left frontoparietal region of the brain, without hemorrhagic transformation. Recurrent adenocarcinoma of the lung, status post chemoradiation in 2016 and 2020. Repeat lung biopsy November 2021, again showed adenocarcinoma. Ongoing tobacco use with nicotine addiction. History of COPD. History of CVA. History of diabetes mellitus. History of DVT/pulmonary embolism. Gastroesophageal reflux disease. History of seizure disorder. She of obstructive sleep apnea syndrome. Hypothyroidism. History of proteins S and C deficiency. Plan: Plan dated 01/02/2022. The patient is currently stable from the pulmonary standpoint. I do agree with the ordering of an MRI, to rule out metastases to the brain. The patient unfortunately continues to smoke. She apparently is using nicotine patches. She had a recent lung biopsy done in November of this year, by my partner, which again showed adenocarcinoma. He was initially diagnosed in 2016, treated then, and retreated, 2020. Overall prognosis remains very guarded. Plan dated 01/03/2022. The patient is very stable from the pulmonary standpoint. She remains on room air. The results of the MRI are noted. The patient is being seen by both neurology and oncology. Recent biopsy of the lung, was sent for biomarker testing. This will determine the next line of treatment. Overall prognosis remains very guarded. Additional recommendations and suggestions are forthcoming. Labs, x-rays, and medications are all reviewed. Plan dated 01/04/2022. The patient remains stable from the pulmonary standpoint. She's on room air. Corticosteroids were discontinued. Additional recommendations and suggestions are forthcoming. The patient had a recent repeat lung biopsy performed by my partner. Oncology will make decisions about the next step in regards to treatment. The patient has been seen by neurology for her CVA. Time with Patient: Less than 30
[2022-01-04 11:49] LABS: Glucose,Whole Blood 176 mg/dL (70-110)
--- NOTE | 2022-01-04 12:27 | P.PN ---
Subjective Progress Note Date: 01/04/22 The patient is a 56-year-old female who is currently admitted to the hospital after suffering an acute CVA. MRI of the brain shows acute CVA in the left parietal and left frontal parietal regions. Cardiology was consulted for possible vegetation noted on mitral valve. The patient states she did well overnight. No difficulty breathing or chest pains. She does feel weak and fatigued. GENERAL: Well-appearing, well-nourished and in no acute distress. NECK: Supple without JVD or thyromegaly. LUNGS: Breath sounds diminished to auscultation bilaterally. Respiration equal and unlabored. No wheezes, rales or rhonchi. HEART: Regular rate and rhythm without murmurs, rubs or gallops. S1 and S2 heard. EXTREMITIES: Normal range of motion, no edema. No clubbing or cyanosis. Peripheral pulses intact and strong. VITALS: Blood pressure 99/69, pulse 72, respiratory rate 20, temp 97.5F, SpO2 96% on room air TELEMETRY: Sinus rhythm overnight LABS: Creatinine 1.81 IMPRESSION: Acute CVA, left parietal with residual right-sided weakness Possible vegetation on mitral valve, proceed with RONALD on Wednesday with primary bait man Dr. Toro Possible history of paroxysmal atrial fibrillation based on previous cardiology consult History of non-small cell lung cancer Acute pneumonia with obstructive pneumonitis, currently on antibiotics History of DVT/PE, on anticoagulation PLAN: Nothing by mouth after midnight RONALD tomorrow with Dr. Toro Further recommendations to be based upon clinical course I am dictating on behalf of Dr Gaston Capellan's history/physical and assessment/plan. Objective - Vital Signs Vital signs: Vital Signs Temp 97.5 F L 01/04/22 08:00 Pulse 72 01/04/22 08:00 Resp 20 01/04/22 08:00 BP 99/69 01/04/22 08:00 Pulse Ox 96 01/04/22 08:00 FiO2 Intake & Output 01/03/22 01/04/22 01/04/22 18:59 06:59 18:59 Intake Total 700 Balance 700 Weight 124 kg Intake: Oral 700 Other: Voiding Method Toilet # Voids 1 1 # Bowel Movements 1 - Labs CBC & Chem 7: 01/01/22 13:22 01/04/22 06:50 Labs: Abnormal Lab Results - Last 24 Hours (Table) 01/03/22 01/03/22 01/04/22 Range/Units 16:24 20:27 06:23 Creatinine (0.52-1.04) mg/dL POC Glucose (mg/dL) 254 H 241 H 155 H (70-110) mg/dL 01/04/22 01/04/22 Range/Units 06:50 11:32 Creatinine 1.81 H (0.52-1.04) mg/dL POC Glucose (mg/dL) 176 H (70-110) mg/dL
[2022-01-04 16:56] LABS: Glucose,Whole Blood 134 mg/dL (70-110)
[2022-01-04 19:59] LABS: Glucose,Whole Blood 187 mg/dL (70-110)
[2022-01-04] MEDS: ASPIRIN 325 MG TAB PO SCH (20:00)
[2022-01-04] MEDS: GABAPENTIN 300 MG CAP PO SCH (20:00)
[2022-01-04] MEDS: ATORVASTATIN 40 MG TAB PO SCH (20:00)
[2022-01-04] MEDS: HYDROcodone/APAP 10-325MG 1 EACH TAB PO PRN (20:00)
--- NOTE | 2022-01-05 05:55 | P.CONS ---
History of Present Illness - Chief Complaint Gait disturbance, right hemiparesthesias - History of Present Illness I had the opportunity to see patient for inpatient rehab consultation with regard to gait disturbance. Patient admitted to Dr. Urias January 01 with right arm weakness. Seen by neurology, Dr. Darby who diagnosed left frontal parietal infarct noted on brain MRI. Seen by Dr. Brooks for left add no carcinoma of lung. protein S and C deficiency. Seen by oncology, known to Dr. Saldaña. Initial head CT demonstrated age-related change only. Chest CT demonstrates left upper lobe mass and left lower lobe atelectasis. Chest x-ray demonstrates left sided mass. Carotid Doppler done. Brain MRI did demonstrated left frontal parietal infarct, age-related change and no enhancing lesions. She has started therapies. PT reports supervision for bed mobility and transfers and minimal assist for gait 40 feet with IV pole. OT reports independent with feeding and supervision for grooming, upper/lower dressing and bathing and toileting. Speech therapy notes verbalization within functional limits. Swallow good and thin and regular. Previous functional history as elicited from patient: 56 year old right-handed white female who is lives in one floor home alone. Retired/disabled. R eceives help from [employer] for laundry and driving. Otherwise independent with own simple cooking, sitdown shower and gait with 4 wheeled walker. PCP currently Dr. Jauregui but will be Dr. Urias. Denies tobacco or alcohol. Review of Systems Review of systems: ENT: Denies sneezes or discharge. Eyes: Denies discharge or photophobia. Cardiac: Denies chest pain or palpitation. Pulmonary: Denies cough or shortness of breath. Breast: Denies discharge or lumps. Gastrointestinal: Denies nausea, emesis, constipation, diarrhea. Genitourinary: Denies discharge or frequency. Musculoskeletal: Denies muscle or bone aches. Neurologic: Right-sided weakness. Endocrine: Denies shakes or sweats. Oncology: Denies cancers. Dermatologic: Denies rash, itching, pruritus. ALLERGY/immunology: Denies sneezes, rashes. Past Medical History Past Medical History: Blood Disorder, Cancer, COPD, CVA/TIA, Diabetes Mellitus, Deep Vein Thrombosis (DVT), GERD/Reflux, Pneumonia, Pulmonary Embolus (PE), Seizure Disorder, Sleep Apnea/CPAP/BIPAP, Thyroid Disorder Additional Past Medical History / Comment(s): L lung cancer with radiation/chemo and pt completed 01/2021, TIA-no residual effects, blood clot left leg and PE left lung, BLANCA with Cpap, last seizure APPROX 2013 bronchitis, protein S and C deficiency, bilateral ankle/pedal edema, past hx falls, DDD, chronic back and bilateral foot pain, weakness in rt legs thought d/t pinched nerve in back, vertigo.COUGHED UP BLOOD History of Any Multi-Drug Resistant Organisms: None Reported Past Surgical History: Tubal Ligation, Uterine Ablation Additional Past Surgical History / Comment(s): D&C, bronchoscopy with L lung biopsy x 2 Past Anesthesia/Blood Transfusion Reactions: No Reported Reaction Past Psychological History: Depression Smoking Status: Current every day smoker Past Alcohol Use History: None Reported Past Drug Use History: None Reported - Past Family History Mother Family Medical History: CVA/TIA Additional Family Medical History / Comment(s): Mother of a CVA at the age of 71 yrs. Brother(s) Family Medical History: No Reported History Additional Family Medical History / Comment(s): Patient has no children. Father Additional Family Medical History / Comment(s): Father was an alcoholic and drug addict. Medications and Allergies Home Medications Medication Instructions Recorded Confirmed Type Citalopram Hydrobromide [CeleXA] 20 mg PO DAILY 11/16/18 01/01/22 History Pantoprazole Sodium 20 mg PO DAILY 11/16/18 01/01/22 History Albuterol Sulfate [Ventolin HFA] 1 - 2 puff INHALATION RT-Q6H PRN 11/14/20 01/01/22 History Levothyroxine Sodium [Synthroid] 25 mcg PO AC-[id number] 11/14/20 01/01/22 History Atorvastatin [Lipitor] 40 mg PO HS 01/02/21 01/01/22 History Aspirin 325 mg PO DAILY 10/06/21 01/01/22 History Baclofen [Lioresal] 20 mg PO DAILY 10/06/21 01/01/22 History Enoxaparin [Lovenox] 200 mg SQ DAILY 10/06/21 01/01/22 History Ergocalciferol [Vitamin D2 (1250 1,250 mcg PO TU 10/06/21 01/01/22 History Mcg = [id number] Iu)] Montelukast [Singulair] 10 mg PO DAILY 10/06/21 01/01/22 History levETIRAcetam [Keppra] 750 mg PO BID 10/06/21 01/01/22 History Gabapentin 300 mg PO HS #3 cap 10/20/21 01/01/22 Rx Potassium Chloride [Klor-Con M10] 20 meq PO DAILY 12/09/21 01/01/22 History Fluticasone/Vilanterol [Breo 1 puff INHALATION RT-DAILY 01/01/22 01/01/22 History Ellipta 100-25 Mcg Inhaler] Furosemide [Lasix] 20 mg PO DAILY 01/01/22 01/01/22 History HYDROcodone/APAP 10-325MG [[place] 1 tab PO HS PRN 01/01/22 01/01/22 History 10-325] Tiotropium 2.5 Mcg/Puff [Spiriva 2 puff INHALATION RT-DAILY 01/01/22 01/01/22 History Respimat 2.5 Mcg] metFORMIN HCL ER [Glucophage XR] 500 mg PO HS 01/01/22 01/01/22 History Allergies Allergy/AdvReac Type Severity Reaction Status Date / Time doxycycline Allergy Rash/Hives Verified 01/01/22 18:18 Penicillins Allergy Rash/Hives, Verified 01/01/22 18:18 "hard to heal" Sulfa (Sulfonamide Allergy Rash/Hives,"hard Verified 01/01/22 18:18 Antibiotics) to heal" wool Allergy Rash/Hives, Verified 01/01/22 18:18 itching ivory soap Allergy Rash/Hives, Uncoded 01/01/22 11:48 itching Physical Exam Vitals: Vital Signs Temp Pulse Resp BP Pulse Ox 01/05/22 04:00 97.2 F L 71 18 117/56 93 L 01/05/22 01:11 77 16 01/04/22 23:26 97.0 F L 77 18 109/59 94 L 01/04/22 19:51 97.4 F L 88 20 128/77 95 01/04/22 16:00 75 18 133/76 97 01/04/22 14:00 18 01/04/22 12:00 68 18 102/69 94 L 01/04/22 08:00 97.5 F L 72 20 99/69 96 Intake and Output 07/17/22 07/17/22 07/18/22 14:59 22:59 06:59 Intake Total 700 240 Balance 700 240 Intake: Oral 700 240 Other: Voiding Method Toilet Toilet # Voids 2 2 Weight 127 kg Skin: Good color, texture, turgor. General: Overweight build and comfortable appearance. Head: Normocephalic, atraumatic. Eyes: Symmetric. Pupils equal round. Ears: Symmetric. Hearing within normal limits. Mouth: Clear. Neck: Supple. Carotid without bruit. Cardiac: Regular rate and rhythm. Lungs: Clear anteriorly and posteriorly. Abdomen: Soft active nontender. Extremities: Normal tone. Neurological: Mental status: Alert, cooperative, pleasant. Cranial nerves: Symmetric facial tone and trapezius. Motor: Normal strength and isolation left side. Right arm in flexion synergy and right leg in extension synergy with elements of isolation hip and knee. Sensation: Intact throughout. DTRs: Symmetric and equal throughout. Mobility: Bed mobility with physical assist. Results CBC & Chem 7: 01/01/22 13:22 01/04/22 06:50 Labs: Abnormal Lab Results - Last 24 Hours (Table) 01/04/22 01/04/22 01/04/22 Range/Units 06:23 06:50 11:32 Creatinine 1.81 H (0.52-1.04) mg/dL POC Glucose (mg/dL) 155 H 176 H (70-110) mg/dL 01/04/22 01/04/22 Range/Units 16:54 19:58 Creatinine (0.52-1.04) mg/dL POC Glucose (mg/dL) 134 H 187 H (70-110) mg/dL Microbiology - Last 24 Hours (Table) 01/01/22 16:25 Blood Culture Gram Stain - Final Blood Blood Culture - Final Staphylococcus epidermidis Assessment and Plan (1) Cerebrovascular accident (CVA) Current Visit: Yes Status: Acute Code(s): I63.9 - CEREBRAL INFARCTION, UNSPECIFIED SNOMED Code(s): 953718312 (2) Non-small cell lung cancer (NSCLC) Current Visit: Yes Status: Chronic Priority: High Code(s): C34.90 - MALIGNANT NEOPLASM OF UNSP PART OF UNSP BRONCHUS OR LUNG SNOMED Code(s): 336241635 (3) Acute bronchitis with COPD Current Visit: No Status: Acute Code(s): J44.0 - CHR OBSTRUCTIVE PULMON DISEASE WITH (ACUTE) LOWER RESP INFCT SNOMED Code(s): 491821789641328 (4) Acute respiratory distress Current Visit: No Status: Acute Priority: High Code(s): R06.03 - ACUTE RESPIRATORY DISTRESS SNOMED Code(s): 307420539 (5) BiPAP (biphasic positive airway pressure) dependence Current Visit: No Status: Acute Code(s): Z99.89 - DEPENDENCE ON OTHER ENABLING MACHINES AND DEVICES SNOMED Code(s): 120213505 (6) Bicytopenia Current Visit: No Status: Acute Priority: High Code(s): D75.89 - OTHER SPECIFIED DISEASES OF BLOOD AND BLOOD-FORMING ORGANS SNOMED Code(s): 67693965 (7) Brainstem stroke Current Visit: No Status: Acute Code(s): I63.9 - CEREBRAL INFARCTION, UNSPECIFIED SNOMED Code(s): 178545812 Plan: Comments and plan: At this time OT describes patient is supervision only or no physical assist. PT reports some physical assist for gait with use of IV pole. Must await therapy notes today. If patient remains the same, would not qualify for inpatient rehab. Patient does have needs which in fact some of them are premorbid. Does have paced medical program which apparently helps with homemaking services.
[2022-01-05 06:07] LABS: Glucose,Whole Blood 102 mg/dL (70-110)
[2022-01-05] MEDS: INSULIN ASPART (NovoLOG) 100 UNIT/ML VIAL SQ SCH ×4 (06:37→20:21)
[2022-01-05] MEDS ORDERED: fentaNYL (PF) 50 MCG/ML 2 ML AMP ONE (07:17)
[2022-01-05] MEDS: SYMBICORT 80-4.5 MCG INHALER INHALATION SCH ×2 (07:40→21:20)
[2022-01-05] MEDS ORDERED: IV FLUID CONTINUATION 600 ML IV ONE (07:48)
[2022-01-05] MEDS: BENZOCAINE SPRAY 1 CAN MUCOUS MEM ONE ×2 (07:50→07:51)
[2022-01-05] MEDS ORDERED: fentaNYL (PF) 50 MCG/ML 2 ML AMP IV ONE (07:53)
[2022-01-05] MEDS: POTASSIUM CHLORIDE ER 20 MEQ TAB.ER PO SCH (09:26)
[2022-01-05] MEDS: LEVOTHYROXINE 25 MCG TAB PO SCH (09:26)
[2022-01-05] MEDS: PANTOPRAZOLE 40 MG TABLET PO SCH (09:26)
[2022-01-05] MEDS: CITALOPRAM HYDROBROMIDE 20 MG TAB PO SCH (09:26)
[2022-01-05] MEDS: FUROSEMIDE 20 MG TAB PO SCH (09:26)
[2022-01-05] MEDS: MONTELUKAST 10 MG TAB PO SCH (09:26)
[2022-01-05] MEDS: NICOTINE 14MG/24HR PATCH TRANSDERM SCH (09:26)
[2022-01-05] MEDS: BACLOFEN 10 MG TAB PO SCH (09:26)
[2022-01-05] MEDS: ENOXAPARIN 100 MG/ML SYRINGE SQ SCH (09:26)
[2022-01-05 11:43] LABS: Glucose,Whole Blood 89 mg/dL (70-110)
[2022-01-05 12:19] LABS: Anisocytosis Slight; Basophils % (A) 0 %; Eosinophils % (A) 0 %; HCT 29.6 % (34.0-46.0); HGB 8.9 gm/dL (11.4-16.0); Hypochromasia Marked; Lymphocytes # (A) 0.9 k/uL (1.0-4.8); Lymphocytes % (A) 9 %; MCH 25.5 pg (25.0-35.0); MCV 84.9 fL (80.0-100.0); Mean Platelet Volume 8.1; Monocytes # (A) 0.5 k/uL (0-1.0); Monocytes % (A) 5 %; Neutrophils # (A) 7.9 k/uL (1.3-7.7); Neutrophils % (A) 84 %; Platelet Count 178 k/uL (150-450); RBC 3.49 m/uL (3.80-5.40); RDW 16.6 % (11.5-15.5); WBC 9.5 k/uL (3.8-10.6)
[2022-01-05 13:12] LABS: Calcium 9.7 mg/dL (8.4-10.2); Magnesium 1.8 mg/dL (1.6-2.3); Potassium 4.5 mmol/L (3.5-5.1); Total Bilirubin 0.3 mg/dL (0.2-1.3); Total Protein 6.7 g/dL (6.3-8.2)
--- NOTE | 2022-01-05 13:13 | P.PN ---
Subjective Progress Note Date: 01/05/22 I am seeing the patient for the first time during this admission. Please refer to Dr. Darby's and Dr. Epstein's note for further details. Briefly, it seems the patient has acute ischemic stroke over the left fronto- parietal region and seems cardioembolic. 2D echo revealed vegetation and blood culture were positive (staph epidermis). Today she had RONALD. Objective - Vital Signs Vital signs: Vital Signs Temp 97.2 F L 01/05/22 04:00 Pulse 108 H 01/05/22 12:00 Resp 16 01/05/22 12:00 BP 120/56 01/05/22 12:00 Pulse Ox 97 01/05/22 12:00 FiO2 Intake & Output 01/04/22 01/05/22 01/05/22 18:59 06:59 18:59 Intake Total 820 120 50 Balance 820 120 50 Weight 127 kg Intake: IV 50 Oral 820 120 Other: Voiding Method Toilet Toilet # Voids 2 2 - Exam Gen.: The patient is seated in the bedside chair. She is well-nourished, well-developed and in no acute distress. Neurologic examination Mental status: The patient is awake, alert and oriented 3. Her speech is clear. There is no dysarthria or aphasia. Cranial nerves: 2-12 grossly intact Motor: Moving all extremities above gravity but has has 4+ over the right side. SOME OF THE WORK-UP DURING THIS HOSPITAL VISIT CONSISTED OF: * Lipid panel: TG 82, Cholestrol 87, LDL 35 and HDL 35 * MRI of the brain revealed small areas of acute CVA left parietal and left frontal region. No hemorrhagic transformation. Age-related atrophic and chronic small vessel ischemic change. I personally reviewed MRI agree with the findings. However there is also evidence of a possible tiny subacute ischemic lesion in the right posterior temporal/occipital cortical region. The pattern of ischemic stroke is highly embolic in nature. * Carotid Doppler revealed suboptimal study without hemodynamically significant stenosis in either ICA. Antegrade flow in both vertebral arteries. * 2-D echo revealed calcified mitral valve, possibility of vegetation cannot be totally excluded. If clinically indicated, a RONALD would be helpful. - Labs CBC & Chem 7: 01/05/22 11:40 01/04/22 06:50 Labs: Abnormal Lab Results - Last 24 Hours (Table) 01/04/22 01/04/22 01/05/22 Range/Units 16:54 19:58 11:40 RBC 3.49 L (3.80-5.40) m/uL Hgb 8.9 L (11.4-16.0) gm/dL Hct 29.6 L (34.0-46.0) % MCHC 30.0 L (31.0-37.0) g/dL RDW 16.6 H (11.5-15.5) % Neutrophils # 7.9 H (1.3-7.7) k/uL Lymphocytes # 0.9 L (1.0-4.8) k/uL POC Glucose (mg/dL) 134 H 187 H (70-110) mg/dL Microbiology - Last 24 Hours (Table) 01/01/22 16:09 Blood Culture Gram Stain - Final Blood Blood Culture - Final Staphylococcus epidermidis 01/01/22 16:25 Blood Culture Gram Stain - Final Blood Blood Culture - Final Staphylococcus epidermidis Assessment and Plan Assessment: Acute multifocal left fronto/parietal infarct. Appears embolic in nautre. 2-D echocardiogram with evidence of possible vegetation-possible septic emboli- possible endocarditis. Blood culture positive for staph epidermis Recurrent adenocarcinoma of the lung tatus post chemotherapy in 2016 and 2020. Repeat lung biopsy November 2021 again showing adenocarcinoma. Tobacco use Seizure disorder History of DVT/Pulmonary Embolism Hypercoagulable state with history of protein S and protein C deficiency History of obstructive sleep apnea Hypothyroidism COPD Plan: Completed RONALD and pending report. Once kidney functions improves recommend CTA head to rule out mycotic aneurysm. On ASA 325mg daily and Lipitor 40mg qhs. For underlying septic emoblic the treatment is antibiotic (currently on Vancomycin) and possible valve replacement if needed. Continue neuro checks. Continue cardiac monitoring PT, OT and DIGITAL FORENSIC EXAMINER are consulted Cardiology is on board Respiratory is on board Infection disease is on board for DVT prophylaxis: On Lovenox 200mg daily. Condition is very guarded. The plan is discussed with patient. Paolo Brooks M.D. Neuro-Hospitalist Time with Patient: Less than 30
--- NOTE | 2022-01-05 13:28 | ECHOT ---
TRANSESOPHAGEAL ECHOCARDIOGRAM INDICATION: To rule out infective endocarditis in a patient with staphylococcal bacteremia. PROCEDURE NOTE: After obtaining informed consent, transesophageal echocardiogram was performed in left lateral position using an Omniplane probe. Local and IV sedation were obtained. The patient received moderate conscious sedation. Total sedation time was 10 minutes. The patient had xylocaine spray and 50 mcg of fentanyl. 2D color Doppler and spectral analysis had been performed. FINDINGS: 1. Mitral valve shows mitral annular calcifications with a small echodense lesion attached to the atrial surface of the anterior mitral leaflet, which could be a vegetation. There is moderate central mitral regurgitation noted. 2. Left atrium appears mildly enlarged. Right atrium and right ventricle seen within normal limits. 3. Left ventricle has normal size and systolic function. 4. Aortic valve is a 3-leaflet valve. There is no evidence of mitral stenosis. There is mild aortic regurgitation. There is no evidence of aortic stenosis. There is no vegetation over the aortic valve. 5. Tricuspid valve is free of vegetation. There is mild tricuspid regurgitation noted. 6. Interatrial septum: There is no evidence of [id number] shunt by color-flow Doppler. There is evidence of [id number] shunt that is delayed and inconsistent with PFO. CONCLUSIONS: 1. Moderate central mitral regurgitation. 2. Normal LV systolic function. 3. Small echodense lesion attached to the atrial surface of the anterior mitral leaflet consistent with a possible vegetation. MMODL / IJN: [id number] /
--- NOTE | 2022-01-05 13:40 | P.PN ---
Subjective Progress Note Date: 01/05/22 HISTORY OF PRESENT ILLNESS: The patient is a 56-year-old female who is currently admitted to the hospital after suffering an acute CVA. MRI of the brain shows acute CVA in the left parietal and left frontal parietal regions. Cardiology was consulted for possible vegetation noted on mitral valve. The patient states she did well overnight. No difficulty breathing or chest pains. She does feel weak and fatigued. 01/05/2022 Patient examined at the bedside. She is s/p RONALD with Dr. Toro revealing moderate central mitral regurgitation, normal LV systolic function, and small echodense lesion attached to the atrial surface of the anterior mitral leaflet consistent with possible vegetation. She denies chest pain or pressure. Denies SOB. Vital signs are stable. PHYSICAL EXAM: VITAL SIGNS: Reviewed. GENERAL: Well-developed in no acute distress. NECK: Supple. No JVD or thyromegaly LUNGS: Respirations even and unlabored. Lungs essentially clear to auscultation bilaterally. HEART: Regular rate and rhythm. S1 and S2 heard. EXTREMITIES: Normal range of motion. No clubbing or cyanosis. Peripheral pulses intact. No lower extremity edema ASSESSMENT: Acute CVA, left parietal with residual right-sided weakness Endocarditis, s/p RONALD revealing vegetation Possible history of paroxysmal atrial fibrillation based on previous cardiology consult History of non-small cell lung cancer Acute pneumonia with obstructive pneumonitis, currently on antibiotics History of DVT/PE, on anticoagulation PLAN: Continue current cardiac medications Consult infectious disease for evaluation. Antibiotics per ID. Further recommendations pending patient course Nurse practitioner note has been reviewed by physician. Signing provider agrees with the documented findings, assessment, and plan of care. Objective - Vital Signs Vital signs: Vital Signs Temp 97.2 F L 01/05/22 04:00 Pulse 108 H 01/05/22 12:00 Resp 16 01/05/22 12:00 BP 120/56 01/05/22 12:00 Pulse Ox 97 01/05/22 12:00 FiO2 Intake & Output 01/04/22 01/05/22 01/05/22 18:59 06:59 18:59 Intake Total 820 120 50 Balance 820 120 50 Weight 127 kg Intake: IV 50 Oral 820 120 Other: Voiding Method Toilet Toilet # Voids 2 2 - Labs CBC & Chem 7: 01/05/22 11:40 01/05/22 11:40 Labs: Abnormal Lab Results - Last 24 Hours (Table) 01/04/22 01/04/22 01/05/22 Range/Units 16:54 19:58 11:40 RBC 3.49 L (3.80-5.40) m/uL Hgb 8.9 L (11.4-16.0) gm/dL Hct 29.6 L (34.0-46.0) % MCHC 30.0 L (31.0-37.0) g/dL RDW 16.6 H (11.5-15.5) % Neutrophils # 7.9 H (1.3-7.7) k/uL Lymphocytes # 0.9 L (1.0-4.8) k/uL Chloride (98-107) mmol/L Carbon Dioxide (22-30) mmol/L BUN (7-17) mg/dL Creatinine (0.52-1.04) mg/dL POC Glucose (mg/dL) 134 H 187 H (70-110) mg/dL Albumin (3.5-5.0) g/dL 01/05/22 Range/Units 11:40 RBC (3.80-5.40) m/uL Hgb (11.4-16.0) gm/dL Hct (34.0-46.0) % MCHC (31.0-37.0) g/dL RDW (11.5-15.5) % Neutrophils # (1.3-7.7) k/uL Lymphocytes # (1.0-4.8) k/uL Chloride 116 H (98-107) mmol/L Carbon Dioxide 12 L (22-30) mmol/L BUN 58 H (7-17) mg/dL Creatinine 1.87 H (0.52-1.04) mg/dL POC Glucose (mg/dL) (70-110) mg/dL Albumin 3.0 L (3.5-5.0) g/dL Microbiology - Last 24 Hours (Table) 01/01/22 16:09 Blood Culture Gram Stain - Final Blood Blood Culture - Final Staphylococcus epidermidis 01/01/22 16:25 Blood Culture Gram Stain - Final Blood Blood Culture - Final Staphylococcus epidermidis
--- NOTE | 2022-01-05 13:42 | P.PN ---
Subjective Progress Note Date: 01/05/22 HISTORY OF PRESENT ILLNESS 56 year-old morbidly obese female one of Dr. 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 fib, patient also known to have non-small cell see of the lung has been on chemotherapy postradiation, she had DVT and PE as well history of obstructive sleep apnea and recurrent TIA, she was hospitalized last in 10/14/2021 for acute hypoxic respiratory failure BiPAP dependent was in earlier on October 06 for acute respiratory failure. Patient has been on Lovenox 200 mg a day for the failure of coagulation with her pulmonary embolism in cancer survival patient. She presented to the emergency department on 01/01/2022 complaining that her right arm be numb and now working properly also her right leg has been weaker than before and have more dropping foot. She had increased pain in the right arm as well or shortness of breath continues to be a problem with minimum exertion. With the weakness in the right side which can be sign of brain metastasis ended up going for CAT scan of the brain which shows no acute intracranial hemorrhage or midline shift there is mild diffuse age-related cerebral atrophy and chronic small vessel ischemic change. With the consent of Pancoast syndrome CAT scan of the lung was perform as well showed left upper lobe process associated with mass effect. There is partial obstruction of the left lower lobe, mild partial left lower lobe atelectasis with few pulmonary nodular in the peripheral measuring from less than centimeter to 1 cm in size. There is also scattered of subcentimeter mediastinal lymph node exist in the left hilum area and mass effect from the left upper lobe. The patient be admitted to the hospital MRI of the brain will be order sheet be seen oncology and pulmonary but will consult neurology as well with a drop foot on the right side and significant weakness in the right arm she might have metastasis to the left temporoparietal area. Might require to be started on steroid to reduce the swelling to decide with oncology with's to do as a next step. Also the possibility of cervical radical up if he is a patient might require to have further testing on her C-spine as well. 01/02: Patient is seen today on the cardiac stepdown unit. She states the weakness in her right arm is not any better. She has been afebrile, heart rate 96, blood pressure 104/61, pulse ox 91% on RA. Triglycerides 82, cholesterol 87, LDL 35, HDL 35. Patient has been seen by pulmonary medicine in agreement for MRI of the brain to rule out metastasis to the brain. Consult was added for oncology, patient follows with Dr. Maria. Neurology consult is pending. Echocardiogram has been ordered. IV fluids will be discontinued. Carotid ultrasound revealed suboptimal study without hemodynamically significant stenosis in either internal carotid artery. 01/05: Patient was seen by telephone neurology over the weekend. Today she underwent a RONALD with cardiology and report is pending. However, an order has been added by cardiology for infectious disease regarding RONALD results. Neurology has recommended a CTA of the head to rule out mycotic aneurysm. Repeat blood work reveals BUN 58 and creatinine 1.87. Hemoglobin 8.9. Platelet count 178. Capillary blood glucose between 89-187. Blood culture staph epidermidis on 2 specimen. patient has been afebrile, heart rate 108, blood pressure 120/56, pulse ox 97% on room air. patient was seen by Dr. Sanford an inpatient rehab. REVIEW OF SYSTEMS Constitutional: Mildly overweight, no respiratory distress. EENT: No headache. No blurred vision or double vision, no loss of vision. No loss of Hearing, no ringing in the ears, no dizziness. No nasal drainage or congestion. No epistaxis. No sore throat. Lungs: Significant shortness of breath with extreme wheezes. Cardiovascular: No chest pain, no lower extremity edema. No palpitations. No paroxysmal nocturnal dyspnea. No orthopnea. No lightheadedness or dizziness. No syncopal episodes. Abdominal: No abdominal pain. No nausea, vomiting. No diarrhea. No constipation. No bloody or tarry stools.. No loss of appetite. Genitourinary: No dysuria, increased frequency, urgency. No urinary retention. Musculoskeletal: Generalized myalgia and arthralgia with abnormal balance and ga it, she had significant weakness in the right upper extremity and significant weakness in the right lower extremity including dropping foot. Integumentary: No wounds, no lesions. No rash or pruritus. No unusual bruising. No change in hair or nails. Neurologic: Positive weakness of the right side along with speech problem and aphasia without dysphagia currently Psychiatric: No depression. No anxiety. No mood swings. Endocrine: No abnormal blood sugars. No weight change. No excessive sweating or thirst. No cold intolerance. PHYSICAL EXAMINATION Gen: This is a morbidly obese female sitting in recliner and appears to be in no acute distress. She is currently on room air. HEENT: Head is atraumatic, normocephalic. Pupils equal, round. Sclerae is anicteric. NECK: Supple. No JVD. No lymphadenopathy. No thyromegaly. LUNGS: Decreased breath some today with significant rhonchi mild crackles in the bases positive mild inspiratory expiratory wheezes. HEART: Regular rate and rhythm. Mild tachycardia has history ABDOMEN: Soft. Bowel sounds are present. No masses. No tenderness. EXTREMITIES: Trace edema decreased pulse bilaterally, right upper extremity had significant weakness with slight pain and discomfort no finding in the shoulder and elbow area, also the right lower extremity has dropping foot with mild discomfort and weakness. NEUROLOGICAL: Patient is awake, alert and oriented x3. Cranial nerves 2 through 12 are grossly intact. Had significant weakness in the right side compared to the left side with dropping foot in the right leg. ASSESSMENT AND PLAN - acute multifocal left frontal parietal infarct appears embolic. Patient underwent RONALD and report is not available however consult was placed with infectious disease. Neurology consult appreciated. Possible CT a of the brain. -small cell lung/adenocarcinoma of the left side been treated by oncology had chemotherapy and radiation, consult added for oncology. - COPD exacerbation: Most likely caused by the obstructive pneumonia along with a severe hypoxia at this point, patient will benefit from DuoNeb along with Pulmicort continue steroid IV. - chronic hypoxic respiratory failure - Acute pneumonia ruled out by pulmonary medicine. Antibiotics discontinued . - coagulopathy with DVT and pulmonary embolism: Remain on anticoagulation which patient doing Lovenox 200 mg subcutaneous daily. - Atrial fibrillation, paroxysmal. - history of seizure: Has been on Keppra 750 mg twice a day resume medication. - hypothyroidism: Continue levothyroxine 25 g daily. - hyperlipidemia: Remain on atorvastatin 40 mg a day we'll resume medication. - chronic neuropathy: Most likely peripheral neuropathy might be chemotherapy related, remain on gabapentin 300 mg daily at bedtime. - severe GERD/GI prophylaxis: Patient remain on pantoprazole 20 mg daily. - chronic pain syndrome: Remain on hydrocodone 10/325 mg 3 times a day. - acute kidney injury with chronic kidney disease III. Baseline creatinine 1.51.7. - DVT prophylaxis: Patient currently being treated with active anticoagulation with Lovenox subcutaneous. - GI prophylaxis: Continue patient on pantoprazole. CODE STATUS: Full code. DISCHARGE PLAN Home with [facility] Impression and plan of care have been directed as dictated by the signing physician. Rukhsana Og nurse practitioner acting as scribe for signing physician. Objective - Vital Signs Vital signs: Vital Signs Temp 97.2 F L 01/05/22 04:00 Pulse 71 01/05/22 04:00 Resp 18 01/05/22 04:00 BP 117/56 01/05/22 04:00 Pulse Ox 93 L 01/05/22 04:00 FiO2 Intake & Output 01/04/22 01/05/22 01/05/22 18:59 06:59 18:59 Intake Total 820 120 50 Balance 820 120 50 Weight 127 kg Intake: IV 50 Oral 820 120 Other: Voiding Method Toilet # Voids 2 2 - Labs CBC & Chem 7: 01/05/22 11:40 01/05/22 11:40 Labs: Abnormal Lab Results - Last 24 Hours (Table) 01/04/22 01/04/22 01/04/22 Range/Units 11:32 16:54 19:58 POC Glucose (mg/dL) 176 H 134 H 187 H (70-110) mg/dL Microbiology - Last 24 Hours (Table) 01/01/22 16:25 Blood Culture Gram Stain - Final Blood Blood Culture - Final Staphylococcus epidermidis
--- NOTE | 2022-01-05 14:07 | P.PN ---
Subjective Progress Note Date: 01/05/22 56-year-old female well-known to our service. Back in 2016, the patient had a diagnosis of lung cancer made, involving the left lung, adenocarcinoma, and apparently received radiation therapy, and chemotherapy. Subsequent to that, she had disease recurrence in 2020, and at that time, also receive additional chemotherapy and radiation therapy. She follows with Dr. Maria and Dr. Swann. She also sees my partner for her lung disease. She comes into the hospital, on January 01, complaining of right arm and right leg weakness, and numbness. She apparently was being evaluated for possible CVA. She did have a computed tomography scan of the brain which did not reveal anything acute. He is scheduled to have an MRI. Recently, in November of this year, my partner we biopsied her left lung, and again discovered recurrent adenocarcinoma. Sampling was sent for genetic testing, to determine if the patient is a candidate for immunotherapy/targeted therapy. The patient is currently not having any respir atory issues at this time. She is on room air. White count 10.8, he will been 7.5, hematocrit 23.6, and platelet count 165,000. PT is 15.6, with an INR 1.5, and a PTT of 86. Sodium 132, potassium 4.2, chlorides 105, CO2 19, BUN 43, and creatinine 2.13. Troponin was 0.038. Albumin 3.4. Chest x-ray showed near complete opacification of the left chest, without obvious cutoff sign of the left mainstem bronchus. Brain CT showed no acute intracranial hemorrhage or midline shift. There was no significant change from prior computed tomography scan done in October of last year. The chest CT showed cutoff of the left upper lobe bronchus, with airless throughout the entire left upper lobe. There is also partial obstruction of the left lower lobe bronchus. Progress note dated 01/03/2022. 56-year-old female seen yesterday in consultation. Please see the note above. The patient was initially diagnosed with lung cancer back in 2016. She follows with Dr. Maria and Dr. Swann, as well as my partner. She had a recent repeat lung biopsy done in November of this year. She was admitted to the hospital with weakness and numbness to the right upper extremity and right lower extremity. She was not having any lung issues at this time. MRI showed small areas of acute CVA involving the left parietal and left frontal parietal regions. There is no hemorrhagic transformation. No enhancing lesions were noted. No new labs today. The patient has been seen by oncology, and neurology. Progress note dated 01/04/2022. 56-year-old female seen in consultation on January 02. She is seen today again in room 374. She is resting comfortably. Not requiring any supplemental oxygen. Patient sees my partner, as well as the medical oncologist, and in the past, the radiation oncologist. In November, she had a repeat lung biopsy performed by my partner. She came in with right upper extremity and right lower extremity weakness and numbness. She was found on MRI of the brain to have a left frontal and left frontal parietal CVA, without hemorrhage. The patient has been seen by neurology. She is also been seen by oncology. No new labs today. Steroids were discontinued. Today's evaluation of 01/05/2022 the patient appears to experience weakness of the right upper extremity. No significant weakness in the right lower extremity. No facial asymmetry. No change in his speech. She is able to ambulate. No respiratory difficulties above and beyond her baseline. Noted the patient underwent a recent bronchoscopy and the left upper lobe bronchus was essentially narrowed related to some endobronchial tumor and radiation therapy applied to her chest in the past. The patient was supposed to start immunotherapy on outpatient basis she end up coming into the hospital for an acute CVA. There is a further MRI of the brain that showed several CVAs involving the left parietal and left frontal parietal regions. The patient is currently on aspirin 325 mg by mouth daily. She is also on Lovenox 40 mg subcu on a daily basis. No headaches. No bleeding to medications and altered mentation. As part of further investigation for the CVA, the patient underwent a RONALD that showed a moderate central mitral regurgitation. Normal LV. Small echodense lesion attached to the anterior surface of the anterior mitral leaflet consistent with possible vegetation. The patient has loose blood cultures positive for staph epidermidis. The patient has a white cell count 9.5 with hemoglobin 8.9. The patient's BUN is a 58 with a creatinine of 1.8. Sodium is 141. Objective - Vital Signs Vital signs: Vital Signs Temp 97.2 F L 01/05/22 04:00 Pulse 71 01/05/22 04:00 Resp 18 01/05/22 04:00 BP 117/56 01/05/22 04:00 Pulse Ox 93 L 01/05/22 04:00 FiO2 Intake & Output 01/04/22 01/05/22 01/05/22 18:59 06:59 18:59 Intake Total 820 120 50 Balance 820 120 50 Weight 127 kg Intake: IV 50 Oral 820 120 Other: Voiding Method Toilet # Voids 2 2 - Exam No acute distress, oriented 3. Not requiring any supplemental oxygen. Room air saturation 97 %. HEENT examination is grossly unremarkable. Neck supple. Full range of motion. No adenopathy thyromegaly or neck vein distention. Cardiovascular examination reveals regular rhythm rate. S1-S2 normal. No S3 or S4. No discernible murmur noted. Lungs reveal diminished left-sided breath sounds. Scattered mild rhonchi. No wheezes. No crackles. Abdomen soft bowel sounds are heard. No masses or tenderness. Extremities are intact. No cyanosis clubbing or edema. Skin is without rash or lesion. Neurologic examination showing motor weakness on the right , 4/5 in the RUE and 5/5/ in the RLE - Labs CBC & Chem 7: 01/05/22 11:40 01/05/22 11:40 Labs: Abnormal Lab Results - Last 24 Hours (Table) 01/04/22 01/04/22 01/04/22 Range/Units 11:32 16:54 19:58 POC Glucose (mg/dL) 176 H 134 H 187 H (70-110) mg/dL Microbiology - Last 24 Hours (Table) 01/01/22 16:25 Blood Culture Gram Stain - Final Blood Blood Culture - Final Staphylococcus epidermidis Assessment and Plan Plan: Right upper extremity and right lower extremity weakness, currently being evaluated by the primary service. MRI scan of the brain showed an acute CVA involving the left frontal and left frontoparietal region of the brain, without hemorrhagic transformation. Acute ischemic stroke, multiple small areas, involving left frontal parietal region, most likely cardioembolic in nature. Recurrent adenocarcinoma of the lung, status post chemoradiation in 2016 and . Repeat lung biopsy November 2021, again showed adenocarcinoma. Questionable mitral valve vegetation based on RONALD findings Mitral valve regurgitation moderate degree Possible culture with staph epidermidis Ongoing tobacco use with nicotine addiction. History of COPD. History of CVA. History of diabetes mellitus. CKD stage 3, creatinine is down to 1.8 History of DVT/pulmonary embolism. Gastroesophageal reflux disease. History of seizure disorder. obstructive sleep apnea syndrome on CPAP therapy Hypothyroidism. History of proteins S and C deficiency. Staph epiderm in the blood Plan: RONALD results were noted ASA 325 mg daily Lovenox 200 mg SC daily we'll discuss the case with cardiology Repeat another set of blood cultures IV vancomycin, The vancomycin trough level from history of 30.8 . Infectious disease consultation will be obtained We'll continue to follow
--- NOTE | 2022-01-05 15:10 | P.PN ---
Subjective Progress Note Date: 01/05/22 Principal diagnosis: CVA Patient up inchair, difficuty breathing still, she is moving right arm and foot better. Objective - Vital Signs Vital signs: Vital Signs Temp 97.2 F L 01/05/22 04:00 Pulse 108 H 01/05/22 12:00 Resp 16 01/05/22 12:00 BP 120/56 01/05/22 12:00 Pulse Ox 97 01/05/22 12:00 FiO2 Intake & Output 01/04/22 01/05/22 01/05/22 18:59 06:59 18:59 Intake Total 820 120 50 Balance 820 120 50 Weight 127 kg Intake: IV 50 Oral 820 120 Other: Voiding Method Toilet Toilet # Voids 2 2 - Exam - Constitutional General appearance: Present: no acute distress - EENT Eyes: Present: EOMI ENT: Present: hearing grossly normal, normal oropharynx - Respiratory Respiratory: left: diminished (Only transmitted sounds) - Cardiovascular Rhythm: regular Heart sounds: normal: S1, S2 - Gastrointestinal General gastrointestinal: Present: normal bowel sounds, soft - Integumentary Integumentary: Present: normal - Neurologic Neurologic: Present: CNII-XII intact, focal deficits (Right upper extremity distally 3+/5. Right lower extremity distally about 4/5.) - Musculoskeletal Musculoskeletal: Present: generalized weakness - Psychiatric Psychiatric: Present: A&O x's 3, appropriate affect - Labs CBC & Chem 7: 01/05/22 11:40 01/05/22 11:40 Labs: Abnormal Lab Results - Last 24 Hours (Table) 01/04/22 01/04/22 01/05/22 Range/Units 16:54 19:58 11:40 RBC 3.49 L (3.80-5.40) m/uL Hgb 8.9 L (11.4-16.0) gm/dL Hct 29.6 L (34.0-46.0) % MCHC 30.0 L (31.0-37.0) g/dL RDW 16.6 H (11.5-15.5) % Neutrophils # 7.9 H (1.3-7.7) k/uL Lymphocytes # 0.9 L (1.0-4.8) k/uL Chloride (98-107) mmol/L Carbon Dioxide (22-30) mmol/L BUN (7-17) mg/dL Creatinine (0.52-1.04) mg/dL POC Glucose (mg/dL) 134 H 187 H (70-110) mg/dL Albumin (3.5-5.0) g/dL 01/05/22 Range/Units 11:40 RBC (3.80-5.40) m/uL Hgb (11.4-16.0) gm/dL Hct (34.0-46.0) % MCHC (31.0-37.0) g/dL RDW (11.5-15.5) % Neutrophils # (1.3-7.7) k/uL Lymphocytes # (1.0-4.8) k/uL Chloride 116 H (98-107) mmol/L Carbon Dioxide 12 L (22-30) mmol/L BUN 58 H (7-17) mg/dL Creatinine 1.87 H (0.52-1.04) mg/dL POC Glucose (mg/dL) (70-110) mg/dL Albumin 3.0 L (3.5-5.0) g/dL Microbiology - Last 24 Hours (Table) 01/01/22 16:09 Blood Culture Gram Stain - Final Blood Blood Culture - Final Staphylococcus epidermidis 01/01/22 16:25 Blood Culture Gram Stain - Final Blood Blood Culture - Final Staphylococcus epidermidis Assessment and Plan Plan: Assessment and Plan (1) Cerebrovascular accident (CVA) Narrative/Plan: - Patient's MRI shows evidence of CVA in the left parietal area, consistent with her symptoms on the right side. T - here is no evidence of brain metastasis. Defer to the admitting service and urology for further management Current Visit: Yes Status: Acute Code(s): I63.9 - CEREBRAL INFARCTION, UNSPECIFIED SNOMED Code(s): 969153331 (2) Lung consolidation Narrative/Plan: - The patient has essentially a whiteout of the left lung, due to atelectasis from cancer progression.. - However she appears to be fairly well compensated. She seemed to be quite comfortable at rest, and did not feel that her respiratory status was any different than at home. At home she uses oxygen only at night. Therefore acute intervention for the same does not appear to be required Current Visit: Yes Status: Acute Code(s): J18.1 - LOBAR PNEUMONIA, UNSPECIF IED ORGANISM SNOMED Code(s): 28414470 (3) Non-small cell lung cancer (NSCLC) Narrative/Plan: The patient has known progression. At this time biomarker testing is pending to determine next line of treatment. She has follow-up scheduled in the office. Current Visit: Yes Status: Chronic Priority: High Code(s): C34.90 - MAL IGNANT NEOPLASM OF UNSP PART OF UNSP BRONCHUS OR LUNG SNOMED Code(s): 254 960547 Continue to work with pulmonology and PHysical therapy Await biomarker testing for lung cancer progression - FOllow up with Dr. Maria after discharge to discuss next plan
[2022-01-05] MEDS: ALBUTEROL HFA INHALER INHALATION PRN ×2 (15:27→21:21)
[2022-01-05 16:34] LABS: Glucose,Whole Blood 126 mg/dL (70-110)
[2022-01-05 20:01] LABS: Glucose,Whole Blood 117 mg/dL (70-110)
[2022-01-05] MEDS: GABAPENTIN 300 MG CAP PO SCH (20:21)
[2022-01-05] MEDS: ATORVASTATIN 40 MG TAB PO SCH (20:21)
[2022-01-05] MEDS: SODIUM CHLORIDE 0.9% 1,000 ML IV SCH (20:21)
[2022-01-05] MEDS: ASPIRIN 325 MG TAB PO SCH (20:21)
[2022-01-05] MEDS: HYDROcodone/APAP 10-325MG 1 EACH TAB PO PRN (20:29)
--- NOTE | 2022-01-05 21:47 | P.CONS ---
History of Present Illness - Reason for Consult Consult date: 01/05/22 RONALD results/Endocarditis Requesting physician: Gaston Capellan - Chief Complaint Shortness of breath few days - History of Present Illness Patient is a 56-year-old female presenting to the hospital about 4 days ago concerning for right arm not working well apparently the patient mention she woke up from a nap a day before presentation to the hospital and noticed weakness in the right side of the home and the leg patient mention she did besides her arm and leg however did not have any improvement and is presenting to the ER with the symptoms patient denies having any fever or any chills no headache no chest pain no shortness of breath or cough no abdominal p ain no diarrhea on presentation to the hospital the patient was afebrile and no significant fever have been recorded subsequently did have mild tachycardia, patient did have a normal white count BUN/creatinine has been mildly elevated and results are normal glucose was mildly elevated patient did have blood cultures on admission positive for staph epidermidis x2 patient did have a chest x-ray near complete opacification of the left hemithorax, echocardiogram did shows calcified mitral wall possibility of vegetation cannot be totally excluded patient did have a RONALD completed this morning with evidence of vegetation on the anterior mitral leaflet patient has been on vancomycin infectious disease was consulted for further management of antibiotic therapy patient did have MRI of the brain small areas of acute CVA left parietal and left frontoparietal region no hemorrhagic transformation and the patient is being managed by the neurology service is as well as pulmonary and cardiology services Review of Systems Positive point has been mentioned in the HPI rest of the systems are negative Past Medical History Past Medical History: Blood Disorder, Cancer, COPD, CVA/TIA, Diabetes Mellitus, Deep Vein Thrombosis (DVT), GERD/Reflux, Pneumonia, Pulmonary Embolus (PE), Seizure Disorder, Sleep Apnea/CPAP/BIPAP, Thyroid Disorder Additional Past Medical History / Comment(s): L lung cancer with radiation/chemo and pt completed 01/2021, TIA-no residual effects, blood clot left leg and PE left lung, BLANCA with Cpap, last seizure APPROX 2013 bronchitis, protein S and C deficiency, bilateral ankle/pedal edema, past hx falls, DDD, chronic back and bilateral foot pain, weakness in rt legs thought d/t pinched nerve in back, vertigo.COUGHED UP BLOOD History of Any Multi-Drug Resistant Organisms: None Reported Past Surgical History: Tubal Ligation, Uterine Ablation Additional Past Surgical History / Comment(s): D&C, bronchoscopy with L lung biopsy x 2 Past Anesthesia/Blood Transfusion Reactions: No Reported Reaction Past Psychological History: Depression Smoking Status: Current every day smoker Past Alcohol Use History: None Reported Past Drug Use History: None Reported - Past Family History Mother Family Medical History: CVA/TIA Additional Family Medical History / Comment(s): Mother of a CVA at the age of 71 yrs. Brother(s) Family Medical History: No Reported History Additional Family Medical History / Comment(s): Patient has no children. Father Additional Family Medical History / Comment(s): Father was an alcoholic and drug addict. Medications and Allergies Home Medications Medication Instructions Recorded Confirmed Type Citalopram Hydrobromide [CeleXA] 20 mg PO DAILY 11/16/18 01/01/22 History Pantoprazole Sodium 20 mg PO DAILY 11/16/18 01/01/22 History Albuterol Sulfate [Ventolin HFA] 1 - 2 puff INHALATION RT-Q6H PRN 11/14/20 01/01/22 History Levothyroxine Sodium [Synthroid] 25 mcg PO AC-BRKFST 11/14/20 01/01/22 History Atorvastatin [Lipitor] 40 mg PO HS 01/02/21 01/01/22 History Aspirin 325 mg PO DAILY 10/06/21 01/01/22 History Baclofen [Lioresal] 20 mg PO DAILY 10/06/21 01/01/22 History Enoxaparin [Lovenox] 200 mg SQ DAILY 10/06/21 01/01/22 History Ergocalciferol [Vitamin D2 (1250 1,250 mcg PO TU 10/06/21 01/01/22 History Mcg = 48397 Iu)] Montelukast [Singulair] 10 mg PO DAILY 10/06/21 01/01/22 History levETIRAcetam [Keppra] 750 mg PO BID 10/06/21 01/01/22 History Potassium Chloride [Klor-Con M10] 20 meq PO DAILY 12/09/21 01/01/22 History Fluticasone/Vilanterol [Breo 1 puff INHALATION RT-DAILY 01/01/22 01/01/22 History Ellipta 100-25 Mcg Inhaler] Furosemide [Lasix] 20 mg PO DAILY 01/01/22 01/01/22 History Tiotropium 2.5 Mcg/Puff [Spiriva 2 puff INHALATION RT-DAILY 01/01/22 01/01/22 History Respimat 2.5 Mcg] Albuterol Nebulized [Ventolin 2.5 mg INHALATION RT-QID PRN ml 01/09/22 Rx Nebulized] Gabapentin 300 mg PO HS #3 cap 01/09/22 Rx HYDROcodone/APAP 10-325MG [[place] 1 tab PO HS PRN #3 tab 01/09/22 Rx 10-325] INSULIN ASPART (NovoLOG) [NovoLOG 0 unit SQ ACHS each 01/09/22 Rx (formulary)] Nicotine 14Mg/24Hr Patch [Habitrol] 1 patch TRANSDERM DAILY patch 01/09/22 Rx Sodium Bicarbonate Tab 650 mg PO TID tab 01/09/22 Rx Vancomycin 1,000 mg IVPB Q24HR 42 Days each 01/09/22 Rx guaiFENesin-Coden 100-10MG/5ML 10 ml PO Q6H PRN 3 Days #120 ml 01/09/22 Rx [Robitussin AC] Allergies Allergy/AdvReac Type Severity Reaction Status Date / Time doxycycline Allergy Rash/Hives Verified 01/01/22 18:18 Penicillins Allergy Rash/Hives, Verified 01/01/22 18:18 "hard to heal" Sulfa (Sulfonamide Allergy Rash/Hives,"hard Verified 01/01/22 18:18 Antibiotics) to heal" wool Allergy Rash/Hives, Verified 01/01/22 18:18 itching ivory soap Allergy Rash/Hives, Uncoded 01/01/22 11:48 itching Physical Exam Vitals: Vital Signs Temp Pulse Resp BP Pulse Ox 01/05/22 12:00 108 H 16 120/56 97 01/05/22 09:28 91 16 129/66 96 01/05/22 09:13 90 16 127/66 01/05/22 08:58 91 16 135/71 92 L 01/05/22 04:00 97.2 F L 71 18 117/56 93 L 01/05/22 01:11 77 16 01/04/22 23:26 97.0 F L 77 18 109/59 94 L 01/04/22 19:51 97.4 F L 88 20 128/77 95 01/04/22 16:00 75 18 133/76 97 01/04/22 14:00 18 Intake and Output 01/04/22 01/05/22 01/05/22 22:59 06:59 14:59 Intake Total 240 50 Balance 240 50 Intake: IV 50 Oral 240 Other: Voiding Method Toilet Toilet Toilet # Voids 2 Weight 127 kg GENERAL DESCRIPTION: Middle-aged male lying in bed, no distress. No tachypnea or accessory muscle of respiration use. HEENT: Shows Pallor , no scleral icterus. Oral mucous membrane is dry. No pharyngeal erythema or thrush NECK: Trachea central, no thyromegaly. LUNGS: Unlabored breathing. Decreased breath sound the bases. No wheeze or crackle. HEART: S1, S2, regular rate and rhythm. No loud murmur ABDOMEN: Soft, no tenderness , guarding or rigidity, no organomegaly EXTREMITIES: No edema of feet. SKIN: No rash, no masses palpable. NEUROLOGICAL: The patient is awake, alert, oriented x3, mood and affect normal. Results CBC & Chem 7: 01/09/22 07:51 01/09/22 07:51 Labs: Abnormal Lab Results - Last 24 Hours (Table) 01/04/22 01/04/22 01/05/22 Range/Units 16:54 19:58 11:40 RBC 3.49 L (3.80-5.40) m/uL Hgb 8.9 L (11.4-16.0) gm/dL Hct 29.6 L (34.0-46.0) % MCHC 30.0 L (31.0-37.0) g/dL RDW 16.6 H (11.5-15.5) % Neutrophils # 7.9 H (1.3-7.7) k/uL Lymphocytes # 0.9 L (1.0-4.8) k/uL POC Glucose (mg/dL) 134 H 187 H (70-110) mg/dL Microbiology - Last 24 Hours (Table) 01/01/22 16:09 Blood Culture Gram Stain - Final Blood Blood Culture - Final Staphylococcus epidermidis 01/01/22 16:25 Blood Culture Gram Stain - Final Blood Blood Culture - Final Staphylococcus epidermidis Assessment and Plan (1) Endocarditis Current Visit: Yes Status: Acute Code(s): I38 - ENDOCARDITIS, VALVE UNSPECIFIED SNOMED Code(s): 04521329 Plan: 1patient presented to hospital about 4 days ago predominantly with the right upper and lower extremity weakness in this patient did have abnormal MRI suspicious for acute CVA patient also have a abnormal echocardiogram with concern for possible vegetation of the mitral wall which has been confirmed on a RONALD today, patient did have positive blood culture with staph epi could be the likely pathogen as the patient currently do not have any evidence of cellulitis joint swelling. 2we will repeat the blood culture to document clearance of bacteremia and check inflammatory markers. 3vancomycin pharmacy to dose target trough of 15 while watching kidney function and vancomycin trough closely We will follow on clinical condition and cultures to further adjust medication if needed Thank you for this consultation will follow this patient along with you Time with Patient: Greater than 30
[2022-01-06 06:03] LABS: Glucose,Whole Blood 105 mg/dL (70-110)
[2022-01-06] MEDS: INSULIN ASPART (NovoLOG) 100 UNIT/ML VIAL SQ SCH ×4 (06:27→20:15)
[2022-01-06] MEDS: LEVOTHYROXINE 25 MCG TAB PO SCH (06:31)
[2022-01-06] MEDS: PANTOPRAZOLE 40 MG TABLET PO SCH (06:31)
--- NOTE | 2022-01-06 07:16 | XR ---
EXAMINATION TYPE: XR chest 2V DATE OF EXAM: 01/06/2022 COMPARISON: 01/02/2022 TECHNIQUE: PA and lateral views submitted. HISTORY: Shortness of breath FINDINGS: Persistent central left lung mass or neoplasm with complete opacification left hemithorax on current study. There is small left-sided pleural fluid collection. No distinct mediastinal shift. Suspicious peripheral right lower lung nodule is redemonstrated. Diffuse bilateral infiltrates have progressed.. Osseous structures are intact. IMPRESSION: 1. Large left upper lobe lung mass again suspected with diffuse bilateral areas of infiltrate which p rogressed from prior exam. Correlate for developing pneumonia or pulmonary edema.
[2022-01-06] MEDS: SYMBICORT 80-4.5 MCG INHALER INHALATION SCH ×2 (07:42→19:44)
[2022-01-06] MEDS: ALBUTEROL HFA INHALER INHALATION PRN ×3 (07:43→19:51)
[2022-01-06 08:23] LABS: Anisocytosis Slight; Basophils % (A) 0 %; Eosinophils # (A) 0.1 k/uL (0-0.7); Eosinophils % (A) 1 %; HCT 28.9 % (34.0-46.0); HGB 8.6 gm/dL (11.4-16.0); Hypochromasia Marked; Lymphocytes # (A) 0.8 k/uL (1.0-4.8); Lymphocytes % (A) 10 %; MCH 25.6 pg (25.0-35.0); MCHC 29.7 g/dL (31.0-37.0); MCV 86.2 fL (80.0-100.0); Mean Platelet Volume 7.7; Monocytes # (A) 0.3 k/uL (0-1.0); Monocytes % (A) 3 %; Neutrophils % (A) 85 %; Platelet Count 140 k/uL (150-450); RBC 3.35 m/uL (3.80-5.40); RDW 16.6 % (11.5-15.5); WBC 8.3 k/uL (3.8-10.6)
[2022-01-06] MEDS: BACLOFEN 10 MG TAB PO SCH (08:29)
[2022-01-06] MEDS: FUROSEMIDE 20 MG TAB PO SCH (08:29)
[2022-01-06] MEDS: CITALOPRAM HYDROBROMIDE 20 MG TAB PO SCH (08:29)
[2022-01-06] MEDS: POTASSIUM CHLORIDE ER 20 MEQ TAB.ER PO SCH (08:29)
[2022-01-06] MEDS: MONTELUKAST 10 MG TAB PO SCH (08:29)
[2022-01-06] MEDS: NICOTINE 14MG/24HR PATCH TRANSDERM SCH (08:29)
[2022-01-06] MEDS: ENOXAPARIN 100 MG/ML SYRINGE SQ SCH (08:30)
--- NOTE | 2022-01-06 09:31 | P.PN ---
Subjective Progress Note Date: 01/06/22 HISTORY OF PRESENT ILLNESS 56 year-old morbidly obese female one of Dr. 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 fib, patient also known to have non-small cell see of the lung has been on chemotherapy postradiation, she had DVT and PE as well history of obstructive sleep apnea and recurrent TIA, she was hospitalized last in 10/14/2021 for acute hypoxic respiratory failure BiPAP dependent was in earlier on October 06 for acute respiratory failure. Patient has been on Lovenox 200 mg a day for the failure of coagulation with her pulmonary embolism in cancer survival patient. She presented to the emergency department on 01/01/2022 complaining that her right arm be numb and now working properly also her right leg has been weaker than before and have more dropping foot. She had increased pain in the right arm as well or shortness of breath continues to be a problem with minimum exertion. With the weakness in the right side which can be sign of brain metastasis ended up going for CAT scan of the brain which shows no acute intracranial hemorrhage or midline shift there is mild diffuse age-related cerebral atrophy and chronic small vessel ischemic change. With the consent of Pancoast syndrome CAT scan of the lung was perform as well showed left upper lobe process associated with mass effect. There is partial obstruction of the left lower lobe, mild partial left lower lobe atelectasis with few pulmonary nodular in the peripheral measuring from less than centimeter to 1 cm in size. There is also scattered of subcentimeter mediastinal lymph node exist in the left hilum area and mass effect from the left upper lobe. The patient be admitted to the hospital MRI of the brain will be order sheet be seen oncology and pulmonary but will consult neurology as well with a drop foot on the right side and significant weakness in the right arm she might have metastasis to the left temporoparietal area. Might require to be started on steroid to reduce the swelling to decide with oncology with's to do as a next step. Also the possibility of cervical radical up if he is a patient might require to have further testing on her C-spine as well. 01/02: Patient is seen today on the cardiac stepdown unit. She states the weakness in her right arm is not any better. She has been afebrile, heart rate 96, blood pressure 104/61, pulse ox 91% on RA. Triglycerides 82, cholesterol 87, LDL 35, HDL 35. Patient has been seen by pulmonary medicine in agreement for MRI of the brain to rule out metastasis to the brain. Consult was added for oncology, patient follows with Dr. Maria. Neurology consult is pending. Echocardiogram has been ordered. IV fluids will be discontinued. Carotid ultrasound revealed suboptimal study without hemodynamically significant stenosis in either internal carotid artery. 01/05: Patient was seen by telephone neurology over the weekend. Today she underwent a RONALD with cardiology and report is pending. However, an order has been added by cardiology for infectious disease regarding RONALD results. Neurology has recommended a CTA of the head to rule out mycotic aneurysm. Repeat blood work reveals BUN 58 and creatinine 1.87. Hemoglobin 8.9. Platelet count 178. Capillary blood glucose between 89-187. Blood culture staph epidermidis on 2 specimen. patient has been afebrile, heart rate 108, blood pressure 120/56, pulse ox 97% on room air. patient was seen by Dr. Sanford an inpatient rehab. 04/08: Patient continues to have significant weakness in the right side, review RONALD showed slight vegetation patient is seen infectious disease will require probably IV antibiotic for total of 4-6 weeks for endocarditis infectious thrombus causing her stroke. Continue PTOT patient will require little bit more extra help in rehab place with IV antibiotics. All communicated with the psych social worker this point. REVIEW OF SYSTEMS Constitutional: Mildly overweight, no respiratory distress. EENT: No headache. No blurred vision or double vision, no loss of vision. No loss of Hearing, no ringing in the ears, no dizziness. No nasal drainage or congestion. No epistaxis. No sore throat. Lungs: Significant shortness of breath with extreme wheezes. Cardiovascular: No chest pain, no lower extremity edema. No palpitations. No paroxysmal nocturnal dyspnea. No orthopnea. No lightheadedness or dizziness. No syncopal episodes. Abdominal: No abdominal pain. No nausea, vomiting. No diarrhea. No con stipation. No bloody or tarry stools.. No loss of appetite. Genitourinary: No dysuria, increased frequency, urgency. No urinary retention. Musculoskeletal: Generalized myalgia and arthralgia with abnormal balance and gait, she had significant weakness in the right upper extremity and significant weakness in the right lower extremity including dropping foot. Integumentary: No wounds, no lesions. No rash or pruritus. No unusual bruising. No change in hair or nails. Neurologic: Positive weakness of the right side along with speech problem and aphasia without dysphagia currently Psychiatric: No depression. No anxiety. No mood swings. Endocrine: No abnormal blood sugars. No weight change. No excessive sweating or thirst. No cold intolerance. PHYSICAL EXAMINATION Gen: This is a morbidly obese female sitting in recliner and appears to be in no acute distress. She is currently on room air. HEENT: Head is atraumatic, normocephalic. Pupils equal, round. Sclerae is anicteric. NECK: Supple. No JVD. No lymphadenopathy. No thyromegaly. LUNGS: Decreased breath some today with significant rhonchi mild crackles in the bases positive mild inspiratory expiratory wheezes. HEART: Regular rate and rhythm. Mild tachycardia has history ABDOMEN: Soft. Bowel sounds are present. No masses. No tenderness. EXTREMITIES: Trace edema decreased pulse bilaterally, right upper extremity had significant weakness with slight pain and discomfort no finding in the shoulder and elbow area, also the right lower extremity has dropping foot with mild discomfort and weakness. NEUROLOGICAL: Patient is awake, alert and oriented x3. Cranial nerves 2 through 12 are grossly intact. Had significant weakness in the right side compared to the left side with dropping foot in the right leg. ASSESSMENT AND PLAN - acute multifocal left frontal parietal infarct appears embolic. Mostly coming from vegetation from endocarditis. We'll continue IV antibiotic and follow-up infectious disease recommendation. Patient will require IV antibiotic for probably 6 weeks. -small cell lung/adenocarcinoma of the left side been treated by oncology had chemotherapy and radiation, consult added for oncology. - COPD exacerbation: Most likely caused by the obstructive pneumonia along with a severe hypoxia at this point, patient will benefit from DuoNeb along with Pulmicort continue steroid IV. - chronic hypoxic respiratory failure to 2 continue updraft treatment. - Acute pneumonia ruled out by pulmonary medicine. Antibiotics discontinued . - coagulopathy with DVT and pulmonary embolism: Remain on anticoagulation which patient doing Lovenox 200 mg subcutaneous daily. - Atrial fibrillation, paroxysmal. Has been stable pulse rate running in the 70s. - history of seizure: Has been on Keppra 750 mg twice a day resume medication. - hypothyroidism: Continue levothyroxine 25 g daily. - hyperlipidemia: Remain on atorvastatin 40 mg a day we'll resume medication. - chronic neuropathy: Most likely peripheral neuropathy might be chemotherapy related, remain on gabapentin 300 mg daily at bedtime. - severe GERD/GI prophylaxis: Patient remain on pantoprazole 20 mg daily. - chronic pain syndrome: Remain on hydrocodone 10/325 mg 3 times a day. - acute kidney injury with chronic kidney disease III. Baseline creatinine 1.51.7. - DVT prophylaxis: Patient currently being treated with active anticoagulation with Lovenox subcutaneous. - GI prophylaxis: Continue patient on pantoprazole. CODE STATUS: Full code. DISCHARGE PLAN Patient is not doing well currently, will require IV antibiotic for long time will require more PTOT as well. Waiting for negative culture before having to do central line and prepare for long-term IV antibiotics. Objective - Vital Signs Vital signs: Vital Signs Temp 98.6 F 01/06/22 03:40 Pulse 103 H 01/06/22 03:40 Resp 24 01/06/22 03:40 BP 103/66 01/06/22 03:40 Pulse Ox 97 01/06/22 03:40 FiO2 Intake & Output 01/05/22 01/06/22 01/06/22 18:59 06:59 18:59 Intake Total 50 120 Output Total 300 Balance -250 120 Intake: IV 50 Oral 120 Output: Urine 300 Other: Voiding Method Toilet Toilet # Voids 2 - Labs CBC & Chem 7: 01/06/22 07:58 01/05/22 11:40 Labs: Abnormal Lab Results - Last 24 Hours (Table) 01/05/22 01/05/22 01/05/22 Range/Units 11:40 11:40 16:23 RBC 3.49 L (3.80-5.40) m/uL Hgb 8.9 L (11.4-16.0) gm/dL Hct 29.6 L (34.0-46.0) % MCHC 30.0 L (31.0-37.0) g/dL RDW 16.6 H (11.5-15.5) % Neutrophils # 7.9 H (1.3-7.7) k/uL Lymphocytes # 0.9 L (1.0-4.8) k/uL Chloride 116 H (98-107) mmol/L Carbon Dioxide 12 L (22-30) mmol/L BUN 58 H (7-17) mg/dL Creatinine 1.87 H (0.52-1.04) mg/dL POC Glucose (mg/dL) 126 H (70-110) mg/dL Albumin 3.0 L (3.5-5.0) g/dL 01/05/22 Range/Units 20:00 RBC (3.80-5.40) m/uL Hgb (11.4-16.0) gm/dL Hct (34.0-46.0) % MCHC (31.0-37.0) g/dL RDW (11.5-15.5) % Neutrophils # (1.3-7.7) k/uL Lymphocytes # (1.0-4.8) k/uL Chloride (98-107) mmol/L Carbon Dioxide (22-30) mmol/L BUN (7-17) mg/dL Creatinine (0.52-1.04) mg/dL POC Glucose (mg/dL) 117 H (70-110) mg/dL Albumin (3.5-5.0) g/dL Microbiology - Last 24 Hours (Table) 01/01/22 16:09 Blood Culture Gram Stain - Final Blood Blood Culture - Final Staphylococcus epidermidis
[2022-01-06 09:46] LABS: Albumin 2.8 g/dL (3.5-5.0); Calcium 9.5 mg/dL (8.4-10.2); Potassium 4.6 mmol/L (3.5-5.1); Total Bilirubin 0.3 mg/dL (0.2-1.3); Total Protein 6.3 g/dL (6.3-8.2)
[2022-01-06] MEDS ORDERED: VANCOMYCIN 2,000 MG in SODIUM CHLORIDE 0.9% 500 ML 500 ML IVPB ONE (10:00)
[2022-01-06 11:04] LABS: C Reactive Protein 22.4 mg/dL (<1.0)
[2022-01-06] MEDS: SODIUM BICARBONATE TAB 650 MG TAB PO SCH ×3 (11:32→20:22)
[2022-01-06 11:52] LABS: Glucose,Whole Blood 104 mg/dL (70-110)
--- NOTE | 2022-01-06 13:28 | P.PN ---
Subjective Progress Note Date: 01/06/22 56-year-old female well-known to our service. Back in 2016, the patient had a diagnosis of lung cancer made, involving the left lung, adenocarcinoma, and apparently received radiation therapy, and chemotherapy. Subsequent to that, she had disease recurrence in 2020, and at that time, also receive additional chemotherapy and radiation therapy. She follows with Dr. Maria and Dr. Swann. She also sees my partner for her lung disease. She comes into the hospital, on January 01, complaining of right arm and right leg weakness, and numbness. She apparently was being evaluated for possible CVA. She did have a computed tomography scan of the brain which did not reveal anything acute. He is scheduled to have an MRI. Recently, in November of this year, my partner we biopsied her left lung, and again discovered recurrent adenocarcinoma. Sampling was sent for genetic testing, to determine if the patient is a candidate for immunotherapy/targeted therapy. The patient is currently not having any respir atory issues at this time. She is on room air. White count 10.8, he will been 7.5, hematocrit 23.6, and platelet count 165,000. PT is 15.6, with an INR 1.5, and a PTT of 86. Sodium 132, potassium 4.2, chlorides 105, CO2 19, BUN 43, and creatinine 2.13. Troponin was 0.038. Albumin 3.4. Chest x-ray showed near complete opacification of the left chest, without obvious cutoff sign of the left mainstem bronchus. Brain CT showed no acute intracranial hemorrhage or midline shift. There was no significant change from prior computed tomography scan done in October of last year. The chest CT showed cutoff of the left upper lobe bronchus, with airless throughout the entire left upper lobe. There is also partial obstruction of the left lower lobe bronchus. Progress note dated 01/03/2022. 56-year-old female seen yesterday in consultation. Please see the note above. The patient was initially diagnosed with lung cancer back in 2016. She follows with Dr. Maria and Dr. Swann, as well as my partner. She had a recent repeat lung biopsy done in November of this year. She was admitted to the hospital with weakness and numbness to the right upper extremity and right lower extremity. She was not having any lung issues at this time. MRI showed small areas of acute CVA involving the left parietal and left frontal parietal regions. There is no hemorrhagic transformation. No enhancing lesions were noted. No new labs today. The patient has been seen by oncology, and neurology. Progress note dated 01/04/2022. 56-year-old female seen in consultation on January 02. She is seen today again in room 374. She is resting comfortably. Not requiring any supplemental oxygen. Patient sees my partner, as well as the medical oncologist, and in the past, the radiation oncologist. In November, she had a repeat lung biopsy performed by my partner. She came in with right upper extremity and right lower extremity weakness and numbness. She was found on MRI of the brain to have a left frontal and left frontal parietal CVA, without hemorrhage. The patient has been seen by neurology. She is also been seen by oncology. No new labs today. Steroids were discontinued. Today's evaluation of 01/05/2022 the patient appears to experience weakness of the right upper extremity. No significant weakness in the right lower extremity. No facial asymmetry. No change in his speech. She is able to ambulate. No respiratory difficulties above and beyond her baseline. Noted the patient underwent a recent bronchoscopy and the left upper lobe bronchus was essentially narrowed related to some endobronchial tumor and radiation therapy applied to her chest in the past. The patient was supposed to start immunotherapy on outpatient basis she end up coming into the hospital for an acute CVA. There is a further MRI of the brain that showed several CVAs involving the left parietal and left frontal parietal regions. The patient is currently on aspirin 325 mg by mouth daily. She is also on Lovenox 40 mg subcu on a daily basis. No headaches. No bleeding to medications and altered mentation. As part of further investigation for the CVA, the patient underwent a RONALD that showed a moderate central mitral regurgitation. Normal LV. Small echodense lesion attached to the anterior surface of the anterior mitral leaflet consistent with possible vegetation. The patient has loose blood cultures positive for staph epidermidis. The patient has a white cell count 9.5 with hemoglobin 8.9. The patient's BUN is a 58 with a creatinine of 1.8. Sodium is 141. 01/06/2022, the patient is session same as yesterday. Nevertheless, there is an obvious consented for an endocarditis. The patient has staph epidermidis in the blood on 4 out of 4 blood cultures and the patient remains on IV vancomycin. The patient was seen by infectious disease and the plan is to continue the antibiotics for now and the plan is to continue and complete a total of 4-6 weeks of antibiotics. Note that the RONALD showed small echodense lesion is attached to the anterior surface of the anterior mitral leaflet consistent with vegetation. Repeat cultures were sent. Most recent vancomycin trough is at 13. The patient has a BUN of 54 with a creatinine of 1.9 consistent with chronic kidney disease. The patient has a serum bicarb of 16 with an anion gap of 11. The patient has a white cell count of 8.3 with a hemoglobin 8.6. The patient continues to have some weakness in the right upper extremity. No new onset focal neurological deficits for now. Speech is normal. No fever or chills. No other new complaints otherwise for now. Objective - Vital Signs Vital signs: Vital Signs Temp 98.6 F 01/06/22 03:40 Pulse 89 01/06/22 08:00 Resp 16 01/06/22 08:00 BP 115/67 01/06/22 08:00 Pulse Ox 97 01/06/22 08:00 FiO2 Intake & Output 01/05/22 01/06/22 01/06/22 18:59 06:59 18:59 Intake Total 50 120 180 Output Total 300 Balance -250 120 180 Intake: IV 50 Oral 120 180 Output: Urine 300 Other: Voiding Method Toilet Toilet Toilet # Voids 2 - Exam No acute distress, oriented 3. Not requiring any supplemental oxygen. Room air saturation 97 %. HEENT examination is grossly unremarkable. Neck supple. Full range of motion. No adenopathy thyromegaly or neck vein distention. Cardiovascular examination reveals regular rhythm rate. S1-S2 normal. No S3 or S4. No discernible murmur noted. Lungs reveal diminished left-sided breath sounds. Scattered mild rhonchi. No wheezes. No crackles. Abdomen soft bowel sounds are heard. No masses or tenderness. Extremities are intact. No cyanosis clubbing or edema. Skin is without rash or lesion. Neurologic examination showing motor weakness on the right , 4/5 in the RUE and 5/5/ in the RLE - Labs CBC & Chem 7: 01/06/22 07:58 01/06/22 07:58 Labs: Abnormal Lab Results - Last 24 Hours (Table) 01/05/22 01/05/22 01/06/22 Range/Units 16:23 20:00 07:58 RBC (3.80-5.40) m/uL Hgb (11.4-16.0) gm/dL Hct (34.0-46.0) % MCHC (31.0-37.0) g/dL RDW (11.5-15.5) % Plt Count (150-450) k/uL Lymphocytes # (1.0-4.8) k/uL Chloride 113 H (98-107) mmol/L Carbon Dioxide 16 L (22-30) mmol/L BUN 54 H (7-17) mg/dL Creatinine 1.95 H (0.52-1.04) mg/dL Glucose 103 H (74-99) mg/dL POC Glucose (mg/dL) 126 H 117 H (70-110) mg/dL C-Reactive Protein 22.4 H (<1.0) mg/dL Albumin 2.8 L (3.5-5.0) g/dL 01/06/22 Range/Units 07:58 RBC 3.35 L (3.80-5.40) m/uL Hgb 8.6 L (11.4-16.0) gm/dL Hct 28.9 L (34.0-46.0) % MCHC 29.7 L (31.0-37.0) g/dL RDW 16.6 H (11.5-15.5) % Plt Count 140 L (150-450) k/uL Lymphocytes # 0.8 L (1.0-4.8) k/uL Chloride (98-107) mmol/L Carbon Dioxide (22-30) mmol/L BUN (7-17) mg/dL Creatinine (0.52-1.04) mg/dL Glucose (74-99) mg/dL POC Glucose (mg/dL) (70-110) mg/dL C-Reactive Protein (<1.0) mg/dL Albumin (3.5-5.0) g/dL Microbiology - Last 24 Hours (Table) 01/01/22 16:09 Blood Culture Gram Stain - Final Blood Blood Culture - Final Staphylococcus epidermidis Assessment and Plan Plan: Right upper extremity and right lower extremity weakness, currently being evaluated by the primary service. MRI scan of the brain showed an acute CVA involving the left frontal and left frontoparietal region of the brain, without hemorrhagic transformation. Acute ischemic stroke, multiple small areas, involving left frontal parietal region, most likely cardioembolic in nature. Neurologically unchanged and the patient has no new onset focal neurological deficits for now Recurrent adenocarcinoma of the lung, status post chemoradiation in 2016 and 2020. Repeat lung biopsy November 2021, again showed adenocarcinoma. Questionable mitral valve vegetation based on RONALD findings Mitral valve regurgitation moderate degree Possible culture with staph epidermidis Ongoing tobacco use with nicotine addiction. History of COPD. History of CVA. History of diabetes mellitus. CKD stage 3, creatinine is down to 1.95 History of DVT/pulmonary embolism. Gastroesophageal reflux disease. History of seizure disorder. obstructive sleep apnea syndrome on CPAP therapy Hypothyroidism. History of proteins S and C deficiency. Staph epiderm in the blood Plan: RONALD results were noted, and there is a concern for endocarditis of the mitral valve with staph epidermidis. The patient remains on vancomycin. Repeat cultures still pending for now. ASA 325 mg daily Lovenox 200 mg SC daily I'm going to start the patient on oral bicarb regarding her metabolic acidosis, non-anion gap type we'll discuss the case with cardiology Repeat another set of blood cultures IV vancomycin, The vancomycin trough level from history of 17 ID consultation is appreciated We'll continue to follow
--- NOTE | 2022-01-06 15:22 | P.PN ---
Subjective Progress Note Date: 01/06/22 The patient is seen at bedside and continues to feel about the same. Objective - Vital Signs Vital signs: Vital Signs Temp 98.6 F 01/06/22 03:40 Pulse 82 01/06/22 12:00 Resp 16 01/06/22 12:00 BP 110/59 01/06/22 12:00 Pulse Ox 100 01/06/22 12:00 FiO2 Intake & Output 01/05/22 01/06/22 01/06/22 18:59 06:59 18:59 Intake Total 50 120 180 Output Total 300 Balance -250 120 180 Intake: IV 50 Oral 120 180 Output: Urine 300 Other: Voiding Method Toilet Toilet Toilet # Voids 2 - Exam Gen.: The patient is seated in the bedside chair. She is well-nourished, well- developed and in no acute distress. Neurologic examination Mental status: The patient is awake, alert and oriented 3. Her speech is clear. There is no dysarthria or aphasia. Cranial nerves: 2-12 grossly intact Motor: Has 4-over the right upper and lower extremity. Strength is normal on left side. SOME OF THE WORK-UP DURING THIS HOSPITAL VISIT CONSISTED OF: * Lipid panel: TG 82, Cholestrol 87, LDL 35 and HDL 35 * MRI of the brain revealed small areas of acute CVA left parietal and left frontal region. No hemorrhagic transformation. Age-related atrophic and chronic small vessel ischemic change. I personally reviewed MRI agree with the findings. However there is also evidence of a possible tiny subacute ischemic lesion in the right posterior temporal/occipital cortical region. The pattern of ischemic stroke is highly embolic in nature. * Carotid Doppler revealed suboptimal study without hemodynamically significant stenosis in either ICA. Antegrade flow in both vertebral arteries. * 2-D echo revealed calcified mitral valve, possibility of vegetation cannot be totally excluded. If clinically indicated, a RONALD would be helpful. * Transesophageal echocardiogram on 01/05/2022 was reported as moderate central mitral regurgitation. Normal left ventricle systolic function. Small echo dense lesion attached to the atrial surface of the anterior mitral leaflet consistent with a possible vegetation. - Labs CBC & Chem 7: 01/06/22 07:58 01/06/22 07:58 Labs: Abnormal Lab Results - Last 24 Hours (Table) 01/05/22 01/05/22 01/06/22 Range/Units 16:23 20:00 07:58 RBC (3.80-5.40) m/uL Hgb (11.4-16.0) gm/dL Hct (34.0-46.0) % MCHC (31.0-37.0) g/dL RDW (11.5-15.5) % Plt Count (150-450) k/uL Lymphocytes # (1.0-4.8) k/uL Chloride 113 H (98-107) mmol/L Carbon Dioxide 16 L (22-30) mmol/L BUN 54 H (7-17) mg/dL Creatinine 1.95 H (0.52-1.04) mg/dL Glucose 103 H (74-99) mg/dL POC Glucose (mg/dL) 126 H 117 H (70-110) mg/dL C-Reactive Protein 22.4 H (<1.0) mg/dL Albumin 2.8 L (3.5-5.0) g/dL 01/06/22 Range/Units 07:58 RBC 3.35 L (3.80-5.40) m/uL Hgb 8.6 L (11.4-16.0) gm/dL Hct 28.9 L (34.0-46.0) % MCHC 29.7 L (31.0-37.0) g/dL RDW 16.6 H (11.5-15.5) % Plt Count 140 L (150-450) k/uL Lymphocytes # 0.8 L (1.0-4.8) k/uL Chloride (98-107) mmol/L Carbon Dioxide (22-30) mmol/L BUN (7-17) mg/dL Creatinine (0.52-1.04) mg/dL Glucose (74-99) mg/dL POC Glucose (mg/dL) (70-110) mg/dL C-Reactive Protein (<1.0) mg/dL Albumin (3.5-5.0) g/dL Microbiology - Last 24 Hours (Table) 01/01/22 16:09 Blood Culture Gram Stain - Final Blood Blood Culture - Final Staphylococcus epidermidis Assessment and Plan Assessment: Acute multifocal left fronto/parietal infarct (with right sided weakness). Due to cardioemoblic and seems due to possible endocarditis. Possible vegetation seen on mitral valve on RONALD, blood culture positive for staph epidermis is concerning for endocarditis Recurrent adenocarcinoma of the lung tatus post chemotherapy in 2016 and 2020. Repeat lung biopsy November 2021 again showing adenocarcinoma. Chronic kidney disease Seizure disorder History of DVT/Pulmonary Embolism Hypercoagulable state with history of protein S and protein C deficiency History of obstructive sleep apnea Hypothyroidism COPD Tobacco use Plan: Once kidney functions improves recommend CTA head to rule out mycotic aneurysm. This is not urgent. On ASA 325mg daily and Lipitor 40mg qhs. For underlying septic emoblic the treatment is antibiotic (currently on Vancomycin) and possible valve replacement if needed. Continue neuro checks. Continue cardiac monitoring PT, OT and S IRON WORKER are consulted Cardiology is on board Respiratory is on board Infection disease is on board for DVT prophylaxis: On Lovenox 200mg daily. Condition is very guarded. The plan is discussed with patient and primary team. Paolo Brooks M.D. Neuro-Hospitalist Time with Patient: Less than 30
--- NOTE | 2022-01-06 16:19 | P.PN ---
Subjective Progress Note Date: 01/06/22 Principal diagnosis: CVA In follow-up today patient is not feeling well, she is really tired, feeling rather weak, she is working very hard though on moving her right upper extremity and right lower extremity. She has been participating with physical therapy. Objective - Vital Signs Vital signs: Vital Signs Temp 98.6 F 01/06/22 03:40 Pulse 89 01/06/22 08:00 Resp 16 01/06/22 08:00 BP 115/67 01/06/22 08:00 Pulse Ox 97 01/06/22 08:00 FiO2 Intake & Output 01/05/22 01/06/22 01/06/22 18:59 06:59 18:59 Intake Total 50 120 180 Output Total 300 Balance -250 120 180 Intake: IV 50 Oral 120 180 Output: Urine 300 Other: Voiding Method Toilet Toilet Toilet # Voids 2 - Constitutional General appearance: Present: cooperative, no acute distress, obese - EENT Eyes: Present: anicteric sclerae, EOMI ENT: Present: hearing grossly normal - Respiratory Respiratory: bilateral: diminished (Congested cough) - Cardiovascular Rhythm: regular Heart sounds: normal: S1, S2 Abnormal Heart Sounds: Absent: systolic murmur, diastolic murmur, rub, S3 Gallop, S4 Gallop, click, other - Peripheral edema foot Peripheral Edema: bilateral: Trace - Gastrointestinal General gastrointestinal: Present: normal bowel sounds, soft - Neurologic Neurologic Comment(s): Right upper and lower extremity weakness - Musculoskeletal Musculoskeletal: Present: right sided weakness - Psychiatric Psychiatric: Present: A&O x's 3, appropriate affect, intact judgment & insight - Labs CBC & Chem 7: 01/06/22 07:58 01/06/22 07:58 Labs: Abnormal Lab Results - Last 24 Hours (Table) 01/05/22 01/05/22 01/05/22 Range/Units 11:40 11:40 16:23 RBC 3.49 L (3.80-5.40) m/uL Hgb 8.9 L (11.4-16.0) gm/dL Hct 29.6 L (34.0-46.0) % MCHC 30.0 L (31.0-37.0) g/dL RDW 16.6 H (11.5-15.5) % Plt Count (150-450) k/uL Neutrophils # 7.9 H (1.3-7.7) k/uL Lymphocytes # 0.9 L (1.0-4.8) k/uL Chloride 116 H (98-107) mmol/L Carbon Dioxide 12 L (22-30) mmol/L BUN 58 H (7-17) mg/dL Creatinine 1.87 H (0.52-1.04) mg/dL Glucose (74-99) mg/dL POC Glucose (mg/dL) 126 H (70-110) mg/dL C-Reactive Protein (<1.0) mg/dL Albumin 3.0 L (3.5-5.0) g/dL 01/05/22 01/06/22 01/06/22 Range/Units 20:00 07:58 07:58 RBC 3.35 L (3.80-5.40) m/uL Hgb 8.6 L (11.4-16.0) gm/dL Hct 28.9 L (34.0-46.0) % MCHC 29.7 L (31.0-37.0) g/dL RDW 16.6 H (11.5-15.5) % Plt Count 140 L (150-450) k/uL Neutrophils # (1.3-7.7) k/uL Lymphocytes # 0.8 L (1.0-4.8) k/uL Chloride 113 H (98-107) mmol/L Carbon Dioxide 16 L (22-30) mmol/L BUN 54 H (7-17) mg/dL Creatinine 1.95 H (0.52-1.04) mg/dL Glucose 103 H (74-99) mg/dL POC Glucose (mg/dL) 117 H (70-110) mg/dL C-Reactive Protein 22.4 H (<1.0) mg/dL Albumin 2.8 L (3.5-5.0) g/dL Microbiology - Last 24 Hours (Table) 01/01/22 16:09 Blood Culture Gram Stain - Final Blood Blood Culture - Final Staphylococcus epidermidis - Imaging and Cardiology Chest x-ray: report reviewed Assessment and Plan (1) Cerebrovascular accident (CVA) Current Visit: Yes Status: Acute Priority: High Code(s): I63.9 - CEREBRAL INFARCTION, UNSPECIFIED SNOMED Code(s): 025852110 (2) Non-small cell lung cancer (NSCLC) Current Visit: Yes Status: Chronic Priority: High Code(s): C34.90 - MALIGNANT NEOPLASM OF UNSP PART OF UNSP BRONCHUS OR LUNG SNOMED Code(s): 447902281 Plan: Recurrent lung adenocarcinoma. NGS and PDL 1 testing results were available in the office this afternoon PDL 1 was less than 1%, KRAS did have a mutation but, unfortunately sub type that we do not have targeted agent for. Once rehab plans are in place and length of stay can be estimated, can sched f/u with Oncologist. Pt is being evicted from her residence. Social Work is following with her. Pt is working hard to get her right side moving. She cont to work with PT. Pending rehab placement. IS ordered
[2022-01-06 17:03] LABS: Glucose,Whole Blood 116 mg/dL (70-110)
[2022-01-06] MEDS: TIOTROPIUM 2.5 MCG INHALER INHALATION SCH (19:45)
[2022-01-06 20:13] LABS: Glucose,Whole Blood 121 mg/dL (70-110)
[2022-01-06] MEDS: SODIUM CHLORIDE 0.9% 1,000 ML IV SCH (20:16)
[2022-01-06] MEDS: GABAPENTIN 300 MG CAP PO SCH (20:21)
[2022-01-06] MEDS: ASPIRIN 325 MG TAB PO SCH (20:21)
[2022-01-06] MEDS: ATORVASTATIN 40 MG TAB PO SCH (20:22)
[2022-01-06] MEDS: guaiFENesin-Coden 100-10MG/5ML 10 ML CUP PO PRN (21:49)
[2022-01-07 05:46] LABS: Glucose,Whole Blood 126 mg/dL (70-110)
[2022-01-07] MEDS: PANTOPRAZOLE 40 MG TABLET PO SCH (06:29)
[2022-01-07] MEDS: LEVOTHYROXINE 25 MCG TAB PO SCH (06:30)
[2022-01-07] MEDS: guaiFENesin-Coden 100-10MG/5ML 10 ML CUP PO PRN ×3 (06:35→22:00)
[2022-01-07] MEDS: INSULIN ASPART (NovoLOG) 100 UNIT/ML VIAL SQ SCH ×4 (06:36→21:58)
--- NOTE | 2022-01-07 07:30 | P.PN ---
Subjective Progress Note Date: 01/06/22 Principal diagnosis: Bacteremia and abnormal echo Patient is a 56-year female presenting to the hospital for right-sided weakness patient did have abnormal echo subsequently did have a RONALD with evidence of vegetation on the anterior mitral leaflet and the patient did have evidence of staph epi bacteremia. On today's evaluation that is 01/06/2022, the patient denies having any fever or any chills, the patient is currently breathing comfortably on nasal cannula oxygen, denies having any chest pain no worsening cough or sputum production abdominal pain no diarrhea Objective - Vital Signs Vital signs: Vital Signs Temp 98.6 F 01/06/22 03:40 Pulse 89 01/06/22 08:00 Resp 16 01/06/22 08:00 BP 115/67 01/06/22 08:00 Pulse Ox 97 01/06/22 08:00 FiO2 Intake & Output 01/05/22 01/06/22 01/06/22 18:59 06:59 18:59 Intake Total 50 120 180 Output Total 300 Balance -250 120 180 Intake: IV 50 Oral 120 180 Output: Urine 300 Other: Voiding Method Toilet Toilet Toilet # Voids 2 - Exam GENERAL DESCRIPTION: A middle-age female up in the chair in no distress RESPIRATORY SYSTEM: Unlabored breathing , decreased breath sounds at bases HEART: S1 S2 regular rate and rhythm , ABDOMEN: Soft , no tenderness EXTREMITIES: No edema feet - Labs CBC & Chem 7: 01/06/22 07:58 01/06/22 07:58 Labs: Abnormal Lab Results - Last 24 Hours (Table) 01/05/22 01/05/22 01/05/22 Range/Units 11:40 11:40 16:23 RBC 3.49 L (3.80-5.40) m/uL Hgb 8.9 L (11.4-16.0) gm/dL Hct 29.6 L (34.0-46.0) % MCHC 30.0 L (31.0-37.0) g/dL RDW 16.6 H (11.5-15.5) % Plt Count (150-450) k/uL Neutrophils # 7.9 H (1.3-7.7) k/uL Lymphocytes # 0.9 L (1.0-4.8) k/uL Chloride 116 H (98-107) mmol/L Carbon Dioxide 12 L (22-30) mmol/L BUN 58 H (7-17) mg/dL Creatinine 1.87 H (0.52-1.04) mg/dL Glucose (74-99) mg/dL POC Glucose (mg/dL) 126 H (70-110) mg/dL C-Reactive Protein (<1.0) mg/dL Albumin 3.0 L (3.5-5.0) g/dL 01/05/22 01/06/22 01/06/22 Range/Units 20:00 07:58 07:58 RBC 3.35 L (3.80-5.40) m/uL Hgb 8.6 L (11.4-16.0) gm/dL Hct 28.9 L (34.0-46.0) % MCHC 29.7 L (31.0-37.0) g/dL RDW 16.6 H (11.5-15.5) % Plt Count 140 L (150-450) k/uL Neutrophils # (1.3-7.7) k/uL Lymphocytes # 0.8 L (1.0-4.8) k/uL Chloride 113 H (98-107) mmol/L Carbon Dioxide 16 L (22-30) mmol/L BUN 54 H (7-17) mg/dL Creatinine 1.95 H (0.52-1.04) mg/dL Glucose 103 H (74-99) mg/dL POC Glucose (mg/dL) 117 H (70-110) mg/dL C-Reactive Protein 22.4 H (<1.0) mg/dL Albumin 2.8 L (3.5-5.0) g/dL Microbiology - Last 24 Hours (Table) 01/01/22 16:09 Blood Culture Gram Stain - Final Blood Blood Culture - Final Staphylococcus epidermidis Assessment and Plan (1) Endocarditis Current Visit: Yes Status: Acute Code(s): I38 - ENDOCARDITIS, VALVE UNSPECIFIED SNOMED Code(s): 79234206 Plan: 1patient presented to hospital about 4 days ago predominantly with the right upper and lower extremity weakness in this patient did have abnormal MRI suspicious for acute CVA patient also have a abnormal echocardiogram with concern for possible vegetation of the mitral wall which has been confirmed on a RONALD today, patient did have positive blood culture with staph epi could be the likely pathogen as the patient currently do not have any evidence of cellulitis joint swelling. 2blood culture has been repeated to document clearance of bacteremia 3patient will continue vancomycin pharmacy to dose target trough of 15 while watching kidney function and vancomycin trough closely Time with Patient: Less than 30
[2022-01-07] MEDS: SYMBICORT 80-4.5 MCG INHALER INHALATION SCH ×2 (07:46→19:29)
[2022-01-07] MEDS: NICOTINE 14MG/24HR PATCH TRANSDERM SCH (09:12)
[2022-01-07] MEDS: BACLOFEN 10 MG TAB PO SCH (09:13)
[2022-01-07] MEDS: CITALOPRAM HYDROBROMIDE 20 MG TAB PO SCH (09:13)
[2022-01-07] MEDS: FUROSEMIDE 20 MG TAB PO SCH (09:13)
[2022-01-07] MEDS: POTASSIUM CHLORIDE ER 20 MEQ TAB.ER PO SCH (09:13)
[2022-01-07] MEDS: SODIUM BICARBONATE TAB 650 MG TAB PO SCH ×3 (09:13→21:59)
[2022-01-07] MEDS: MONTELUKAST 10 MG TAB PO SCH (09:13)
--- NOTE | 2022-01-07 09:56 | P.PN ---
Subjective Progress Note Date: 01/07/22 HISTORY OF PRESENT ILLNESS 56 year-old morbidly obese female one of Dr. 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 fib, patient also known to have non-small cell see of the lung has been on chemotherapy postradiation, she had DVT and PE as well history of obstructive sleep apnea and recurrent TIA, she was hospitalized last in 10/14/2021 for acute hypoxic respiratory failure BiPAP dependent was in earlier on October 06 for acute respiratory failure. Patient has been on Lovenox 200 mg a day for the failure of coagulation with her pulmonary embolism in cancer survival patient. She presented to the emergency department on 01/01/2022 complaining that her right arm be numb and now working properly also her right leg has been weaker than before and have more dropping foot. She had increased pain in the right arm as well or shortness of breath continues to be a problem with minimum exertion. With the weakness in the right side which can be sign of brain metastasis ended up going for CAT scan of the brain which shows no acute intracranial hemorrhage or midline shift there is mild diffuse age-related cerebral atrophy and chronic small vessel ischemic change. With the consent of Pancoast syndrome CAT scan of the lung was perform as well showed left upper lobe process associated with mass effect. There is partial obstruction of the left lower lobe, mild partial left lower lobe atelectasis with few pulmonary nodular in the peripheral measuring from less than centimeter to 1 cm in size. There is also scattered of subcentimeter mediastinal lymph node exist in the left hilum area and mass effect from the left upper lobe. The patient be admitted to the hospital MRI of the brain will be order sheet be seen oncology and pulmonary but will consult neurology as well with a drop foot on the right side and significant weakness in the right arm she might have metastasis to the left temporoparietal area. Might require to be started on steroid to reduce the swelling to decide with oncology with's to do as a next step. Also the possibility of cervical radical up if he is a patient might require to have further testing on her C-spine as well. 01/02: Patient is seen today on the cardiac stepdown unit. She states the weakness in her right arm is not any better. She has been afebrile, heart rate 96, blood pressure 104/61, pulse ox 91% on RA. Triglycerides 82, cholesterol 87, LDL 35, HDL 35. Patient has been seen by pulmonary medicine in agreement for MRI of the brain to rule out metastasis to the brain. Consult was added for oncology, patient follows with Dr. Maria. Neurology consult is pending. Echocardiogram has been ordered. IV fluids will be discontinued. Carotid ultrasound revealed suboptimal study without hemodynamically significant stenosis in either internal carotid artery. 01/05: Patient was seen by telephone neurology over the weekend. Today she underwent a RONALD with cardiology and report is pending. However, an order has been added by cardiology for infectious disease regarding RONALD results. Neurology has recommended a CTA of the head to rule out mycotic aneurysm. Repeat blood work reveals BUN 58 and creatinine 1.87. Hemoglobin 8.9. Platelet count 178. Capillary blood glucose between 89-187. Blood culture staph epidermidis on 2 specimen. patient has been afebrile, heart rate 108, blood pressure 120/56, pulse ox 97% on room air. patient was seen by Dr. Sanford an inpatient rehab. 01/06: Patient continues to have significant weakness in the right side, review RONALD showed slight vegetation patient is seen infectious disease will require probably IV antibiotic for total of 4-6 weeks for endocarditis infectious thrombus causing her stroke. Continue PTOT patient will require little bit more extra help in rehab place with IV antibiotics. All communicated with the psychosocial rehabilitation counselor this point. 01/07: Patient is seen today rest seen in recliner on the cardiac stepdown unit. She continues to have weakness on the right side. Blood culture repeated are showing no growth at [address] Ibarra would like to wait until greater than 48 hours for PICC line placement. Patient has been afebrile, heart rate 86, blood pressure 114/58, pulse ox 99% on room air. Capillary blood glucose running between 104 and 126. Repeat blood work ordered for tomorrow. REVIEW OF SYSTEMS Constitutional: Mildly overweight, no respiratory distress. EENT: No headache. No blurred vision or double vision, no loss of vision. No loss of Hearing, no ringing in the ears, no dizziness. No nasal drainage or congestion. No epistaxis. No sore throat. Lungs: Significant shortness of breath with extreme wheezes. Cardiovascular: No chest pain, no lower extremity edema. No palpitations. No paroxysmal nocturnal dyspnea. No orthopnea. No lightheadedness or dizziness. No syncopal episodes. Abdominal: No abdominal pain. No nausea, vomiting. No diarrhea. No constipation. No bloody or tarry stools.. No loss of appetite. Genitourinary: No dysuria, increased frequency, urgency. No urinary retention. Musculoskeletal: Generalized myalgia and arthralgia with abnormal balance and gait, she had significant weakness in the right upper extremity and significant weakness in the right lower extremity including dropping foot. Integumentary: No wounds, no lesions. No rash or pruritus. No unusual bruis ing. No change in hair or nails. Neurologic: Positive weakness of the right side along with speech problem and aphasia without dysphagia currently Psychiatric: No depression. No anxiety. No mood swings. Endocrine: No abnormal blood sugars. No weight change. No excessive sweating or thirst. No cold intolerance. PHYSICAL EXAMINATION Gen: This is a morbidly obese female sitting in recliner and appears to be in no acute distress. She is currently on room air. HEENT: Head is atraumatic, normocephalic. Pupils equal, round. Sclerae is anicteric. NECK: Supple. No JVD. No lymphadenopathy. No thyromegaly. LUNGS: Decreased breath some today with significant rhonchi mild crackles in the bases positive mild inspiratory expiratory wheezes. HEART: Regular rate and rhythm. Mild tachycardia has history ABDOMEN: Soft. Bowel sounds are present. No masses. No tenderness. EXTREMITIES: Trace edema decreased pulse bilaterally, right upper extremity had significant weakness with slight pain and discomfort no finding in the shoulder and elbow area, also the right lower extremity has dropping foot with mild discomfort and weakness. NEUROLOGICAL: Patient is awake, alert and oriented x3. Cranial nerves 2 through 12 are grossly intact. Had significant weakness in the right side compared to the left side with dropping foot in the right leg. ASSESSMENT AND PLAN - acute multifocal left frontal parietal infarct appears embolic. Mostly com ing from vegetation from endocarditis. We'll continue IV antibiotic and follow- up infectious disease recommendation. Patient will require IV antibiotic for probably 6 weeks. -small cell lung/adenocarcinoma of the left side been treated by oncology had chemotherapy and radiation, consult added for oncology. - COPD exacerbation: Most likely caused by the obstructive pneumonia along with a severe hypoxia at this point, patient will benefit from DuoNeb along with Pulmicort continue steroid IV. - chronic hypoxic respiratory failure to 2 continue updraft treatment. - Acute pneumonia ruled out by pulmonary medicine. Antibiotics discontinued . - coagulopathy with DVT and pulmonary embolism: Remain on anticoagulation which patient doing Lovenox 200 mg subcutaneous daily. - Atrial fibrillation, paroxysmal. Has been stable pulse rate running in the 70s. - history of seizure: Has been on Keppra 750 mg twice a day resume medication. - hypothyroidism: Continue levothyroxine 25 g daily. - hyperlipidemia: Remain on atorvastatin 40 mg a day we'll resume medication. - chronic neuropathy: Most likely peripheral neuropathy might be chemotherapy related, remain on gabapentin 300 mg daily at bedtime. - severe GERD/GI prophylaxis: Patient remain on pantoprazole 20 mg daily. - chronic pain syndrome: Remain on hydrocodone 10/325 mg 3 times a day. - acute kidney injury with chronic kidney disease III. Baseline creatinine 1.51.7. - DVT prophylaxis: Patient currently being treated with active anticoagulation with Lovenox subcutaneous. - GI prophylaxis: Continue patient on pantoprazole. CODE STATUS: Full code. DISCHARGE PLAN Patient is not doing well currently, will require IV antibiotic for long time will require more PTOT as well. Waiting for negative culture before having to do central line and prepare for long-term IV antibiotics. Impression and plan of care have been directed as dictated by the signing phys tello. Rukhsana Og nurse practitioner acting as scribe for signing physician. Objective - Vital Signs Vital signs: Vital Signs Temp 98.3 F 01/07/22 04:00 Pulse 101 H 01/07/22 04:00 Resp 20 01/07/22 04:00 BP 110/61 01/07/22 04:00 Pulse Ox 97 01/07/22 04:00 FiO2 Intake & Output 01/06/22 01/07/22 01/07/22 18:59 06:59 18:59 Intake Total 1020 10 Balance 1020 10 Intake: IV 10 Invasive Line 3 10 Intake, IV Titration 500 Amount Vancomycin 2,000 mg In 500 Sodium Chloride 0.9% 500 ml 500 ml @ 167 mls/hr IVPB ONCE ONE Rx#: [id number] Oral 520 Other: Voiding Method Toilet Toilet # Voids 1 - Labs CBC & Chem 7: 01/06/22 07:58 01/06/22 07:58 Labs: Abnormal Lab Results - Last 24 Hours (Table) 01/06/22 01/06/22 01/06/22 Range/Units 07:58 16:43 20:02 Chloride 113 H (98-107) mmol/L Carbon Dioxide 16 L (22-30) mmol/L BUN 54 H (7-17) mg/dL Creatinine 1.95 H (0.52-1.04) mg/dL Glucose 103 H (74-99) mg/dL POC Glucose (mg/dL) 116 H 121 H (70-110) mg/dL C-Reactive Protein 22.4 H (<1.0) mg/dL Albumin 2.8 L (3.5-5.0) g/dL 01/07/22 Range/Units 05:32 Chloride (98-107) mmol/L Carbon Dioxide (22-30) mmol/L BUN (7-17) mg/dL Creatinine (0.52-1.04) mg/dL Glucose (74-99) mg/dL POC Glucose (mg/dL) 126 H (70-110) mg/dL C-Reactive Protein (<1.0) mg/dL Albumin (3.5-5.0) g/dL Microbiology - Last 24 Hours (Table) 01/05/22 14:37 Blood Culture - Preliminary Blood No Growth after 24 hours 01/05/22 14:28 Blood Culture - Preliminary Blood No Growth after 24 hours 01/05/22 13:05 Blood Culture - Preliminary Blood No Growth after 24 hours 01/05/22 13:18 Blood Culture - Preliminary Blood No Growth after 24 hours
[2022-01-07 11:39] LABS: Glucose,Whole Blood 138 mg/dL (70-110)
[2022-01-07] MEDS: ENOXAPARIN 100 MG/ML SYRINGE SQ SCH (12:16)
--- NOTE | 2022-01-07 14:34 | P.PN ---
Subjective Progress Note Date: 01/07/22 56-year-old female well-known to our service. Back in 2016, the patient had a diagnosis of lung cancer made, involving the left lung, adenocarcinoma, and apparently received radiation therapy, and chemotherapy. Subsequent to that, she had disease recurrence in 2020, and at that time, also receive additional chemotherapy and radiation therapy. She follows with Dr. Maria and Dr. Swann. She also sees my partner for her lung disease. She comes into the hospital, on January 01, complaining of right arm and right leg weakness, and numbness. She apparently was being evaluated for possible CVA. She did have a computed tomography scan of the brain which did not reveal anything acute. He is scheduled to have an MRI. Recently, in November of this year, my partner we biopsied her left lung, and again discovered recurrent adenocarcinoma. Sampling was sent for genetic testing, to determine if the patient is a candidate for immunotherapy/targeted therapy. The patient is currently not having any respir atory issues at this time. She is on room air. White count 10.8, he will been 7.5, hematocrit 23.6, and platelet count 165,000. PT is 15.6, with an INR 1.5, and a PTT of 86. Sodium 132, potassium 4.2, chlorides 105, CO2 19, BUN 43, and creatinine 2.13. Troponin was 0.038. Albumin 3.4. Chest x-ray showed near complete opacification of the left chest, without obvious cutoff sign of the left mainstem bronchus. Brain CT showed no acute intracranial hemorrhage or midline shift. There was no significant change from prior computed tomography scan done in October of last year. The chest CT showed cutoff of the left upper lobe bronchus, with airless throughout the entire left upper lobe. There is also partial obstruction of the left lower lobe bronchus. Progress note dated 01/03/2022. 56-year-old female seen yesterday in consultation. Please see the note above. The patient was initially diagnosed with lung cancer back in 2016. She follows with Dr. Maria and Dr. Swann, as well as my partner. She had a recent repeat lung biopsy done in November of this year. She was admitted to the hospital with weakness and numbness to the right upper extremity and right lower extremity. She was not having any lung issues at this time. MRI showed small areas of acute CVA involving the left parietal and left frontal parietal regions. There is no hemorrhagic transformation. No enhancing lesions were noted. No new labs today. The patient has been seen by oncology, and neurology. Progress note dated 01/04/2022. 56-year-old female seen in consultation on January 02. She is seen today again in room 374. She is resting comfortably. Not requiring any supplemental oxygen. Patient sees my partner, as well as the medical oncologist, and in the past, the radiation oncologist. In November, she had a repeat lung biopsy performed by my partner. She came in with right upper extremity and right lower extremity weakness and numbness. She was found on MRI of the brain to have a left frontal and left frontal parietal CVA, without hemorrhage. The patient has been seen by neurology. She is also been seen by oncology. No new labs today. Steroids were discontinued. Today's evaluation of 01/05/2022 the patient appears to experience weakness of the right upper extremity. No significant weakness in the right lower extremity. No facial asymmetry. No change in his speech. She is able to ambulate. No respiratory difficulties above and beyond her baseline. Noted the patient underwent a recent bronchoscopy and the left upper lobe bronchus was essentially narrowed related to some endobronchial tumor and radiation therapy applied to her chest in the past. The patient was supposed to start immunotherapy on outpatient basis she end up coming into the hospital for an acute CVA. There is a further MRI of the brain that showed several CVAs involving the left parietal and left frontal parietal regions. The patient is currently on aspirin 325 mg by mouth daily. She is also on Lovenox 40 mg subcu on a daily basis. No headaches. No bleeding to medications and altered mentation. As part of further investigation for the CVA, the patient underwent a RONALD that showed a moderate central mitral regurgitation. Normal LV. Small echodense lesion attached to the anterior surface of the anterior mitral leaflet consistent with possible vegetation. The patient has loose blood cultures positive for staph epidermidis. The patient has a white cell count 9.5 with hemoglobin 8.9. The patient's BUN is a 58 with a creatinine of 1.8. Sodium is 141. 01/06/2022, the patient is session same as yesterday. Nevertheless, there is an obvious consented for an endocarditis. The patient has staph epidermidis in the blood on 4 out of 4 blood cultures and the patient remains on IV vancomycin. The patient was seen by infectious disease and the plan is to continue the antibiotics for now and the plan is to continue and complete a total of 4-6 weeks of antibiotics. Note that the RONALD showed small echodense lesion is attached to the anterior surface of the anterior mitral leaflet consistent with vegetation. Repeat cultures were sent. Most recent vancomycin trough is at 13. The patient has a BUN of 54 with a creatinine of 1.9 consistent with chronic kidney disease. The patient has a serum bicarb of 16 with an anion gap of 11. The patient has a white cell count of 8.3 with a hemoglobin 8.6. The patient continues to have some weakness in the right upper extremity. No new onset focal neurological deficits for now. Speech is normal. No fever or chills. No other new complaints otherwise for now. 01/08/2072, the patient has noted some interval improvement in the right upper extremity weakness and the patient has no other new onset focal neurological deficits. The patient is doing well for now. Normal mobility. Normal ambulation. The weakness in the right upper extremity is improving. Note that the patient was given vancomycin regarding staph epidermidis in the blood. There appeared cultures from 01/05/2022 were all negative and the patient will be ultimately be given a PICC line for outpatient antibiotic treatment wasn't neck 4-6 weeks. She is afebrile. She is hemodynamically stable and the patient has no significant leukocytosis. No new labs from today. We'll need to follow-up on her creatinine which is was at 1.95 yesterday. Resume medications remain unchanged. The patient remains on oral Lasix 20 mg by mouth daily. She is on oral bicarbonate and repeat serum bicarb is pending for now. She remains on aspirin 325 mg by mouth daily. No signs of any respiratory distress and the patient remains oxygen on room air the patient's pulse ox is around 95%. Objective - Vital Signs Vital signs: Vital Signs Temp 98.3 F 01/07/22 04:00 Pulse 84 01/07/22 12:00 Resp 16 01/07/22 12:00 BP 111/62 01/07/22 12:00 Pulse Ox 95 01/07/22 12:00 FiO2 Intake & Output 01/06/22 01/07/22 01/07/22 18:59 06:59 18:59 Intake Total 1020 10 118 Balance 1020 10 118 Intake: IV 10 Invasive Line 3 10 Intake, IV Titration 500 Amount Vancomycin 2,000 mg In 500 Sodium Chloride 0.9% 500 ml 500 ml @ 167 mls/hr IVPB ONCE ONE Rx#: [id number] Oral 520 118 Other: Voiding Method Toilet Toilet Toilet # Voids 1 1 - Exam No acute distress, oriented 3. Not requiring any supplemental oxygen. Room air saturation 97 %. HEENT examination is grossly unremarkable. Neck supple. Full range of motion. No adenopathy thyromegaly or neck vein distention. Cardiovascular examination reveals regular rhythm rate. S1-S2 normal. No S3 or S4. No discernible murmur noted. Lungs reveal diminished left-sided breath sounds. Scattered mild rhonchi. No wheezes. No crackles. Abdomen soft bowel sounds are heard. No masses or tenderness. Extremities are intact. No cyanosis clubbing or edema. Skin is without rash or lesion. Neurologic examination showing motor weakness on the right , 4/5 in the RUE and 5/5/ in the RLE - Labs CBC & Chem 7: 01/06/22 07:58 01/06/22 07:58 Labs: Abnormal Lab Results - Last 24 Hours (Table) 01/06/22 01/06/22 01/07/22 Range/Units 16:43 20:02 05:32 POC Glucose (mg/dL) 116 H 121 H 126 H (70-110) mg/dL 01/07/22 Range/Units 11:37 POC Glucose (mg/dL) 138 H (70-110) mg/dL Microbiology - Last 24 Hours (Table) 01/05/22 14:37 Blood Culture - Preliminary Blood No Growth after 24 hours 01/05/22 14:28 Blood Culture - Preliminary Blood No Growth after 24 hours 01/05/22 13:05 Blood Culture - Preliminary Blood No Growth after 24 hours 01/05/22 13:18 Blood Culture - Preliminary Blood No Growth after 24 hours Assessment and Plan Plan: Right upper extremity weakness, currently being evaluated by the primary service. MRI scan of the brain showed an acute CVA involving the left frontal and left frontoparietal region of the brain, without hemorrhagic transformation. Acute ischemic stroke, multiple small areas, involving left frontal parietal region, most likely cardioembolic in nature. Neurologically there is some interval improvement in the right upper extremity weakness. The patient is currently on aspirin. The patient is also on IV antibiotics of vancomycin regarding possibility of infective endocarditis with staph epidermidis. The vancomycin trough from yesterday was 13.0. Recurrent adenocarcinoma of the lung, status post chemoradiation in 2016 and 2020. Repeat lung biopsy November 2021, again showed adenocarcinoma. Questionable mitral valve vegetation based on RONALD findings, this along with a possible culture with staph epidermidis as a concern for endocarditis and the patient is currently on vancomycin. Mitral valve regurgitation moderate degree Bacteremia with staph epidermidis, The repeat cultures from 01/05/2022 are both negative. Ongoing tobacco use with nicotine addiction. History of COPD. History of CVA. History of diabetes mellitus. CKD stage 3, creatinine is down to 1.95 History of DVT/pulmonary embolism. Gastroesophageal reflux disease. History of seizure disorder. obstructive sleep apnea syndrome on CPAP therapy Hypothyroidism. History of proteins S and C deficiency. Staph epiderm in the blood Plan: Some improvement in the motor weakness in the right upper extremity RONALD results were noted, and there is a concern for endocarditis of the mitral valve with staph epidermidis. The patient remains on vancomycin. Repeat culture from 01/06/2000 and signs are negative ASA 325 mg daily Lovenox 200 mg SC daily Monitor electrolytes Continue vancomycin PICC line for outpatient antibiotic treatment ID consultation is appreciated We'll continue to follow
[2022-01-07 16:27] LABS: Glucose,Whole Blood 121 mg/dL (70-110)
[2022-01-07] MEDS: TIOTROPIUM 2.5 MCG INHALER INHALATION SCH (19:29)
[2022-01-07] MEDS: ALBUTEROL NEBULIZED 2.5 MG/3 ML INHALATION PRN (19:33)
[2022-01-07 21:48] LABS: Glucose,Whole Blood 127 mg/dL (70-110)
[2022-01-07] MEDS: ASPIRIN 325 MG TAB PO SCH (21:59)
[2022-01-07] MEDS: GABAPENTIN 300 MG CAP PO SCH (21:59)
[2022-01-07] MEDS: ATORVASTATIN 40 MG TAB PO SCH (21:59)
[2022-01-08] MEDS: SODIUM CHLORIDE 0.9% 1,000 ML IV SCH ×2 (00:22→20:20)
[2022-01-08 06:06] LABS: Glucose,Whole Blood 113 mg/dL (70-110)
[2022-01-08] MEDS: INSULIN ASPART (NovoLOG) 100 UNIT/ML VIAL SQ SCH ×4 (06:43→20:21)
[2022-01-08] MEDS: LEVOTHYROXINE 25 MCG TAB PO SCH (06:44)
[2022-01-08] MEDS: PANTOPRAZOLE 40 MG TABLET PO SCH (06:44)
[2022-01-08] MEDS: guaiFENesin-Coden 100-10MG/5ML 10 ML CUP PO PRN (06:44)
[2022-01-08] MEDS: ALBUTEROL NEBULIZED 2.5 MG/3 ML INHALATION PRN ×2 (07:59→19:46)
[2022-01-08] MEDS: SYMBICORT 80-4.5 MCG INHALER INHALATION SCH ×2 (07:59→19:45)
--- NOTE | 2022-01-08 08:10 | P.PN ---
Subjective Progress Note Date: 01/07/22 Principal diagnosis: Bacteremia and abnormal echo Patient is a 56-year female presenting to the hospital for right-sided weakness patient did have abnormal echo subsequently did have a RONALD with evidence of vegetation on the anterior mitral leaflet and the patient did have evidence of staph epi bacteremia. On today's evaluation that is 01/07/2022, the patient remains to be afebrile, the patient is breathing comfortably on nasal cannula oxygen, the patient denies having any chest pain no worsening cough or sputum production abdominal pain no diarrhea Objective - Vital Signs Vital signs: Vital Signs Temp 98.3 F 01/07/22 04:00 Pulse 84 01/07/22 12:00 Resp 16 01/07/22 12:00 BP 111/62 01/07/22 12:00 Pulse Ox 95 01/07/22 12:00 FiO2 Intake & Output 01/06/22 01/07/22 01/07/22 18:59 06:59 18:59 Intake Total 1020 10 Balance 1020 10 Intake: IV 10 Invasive Line 3 10 Intake, IV Titration 500 Amount Vancomycin 2,000 mg In 500 Sodium Chloride 0.9% 500 ml 500 ml @ 167 mls/hr IVPB ONCE ONE Rx#: [id number] Oral 520 Other: Voiding Method Toilet Toilet Toilet # Voids 1 1 - Exam GENERAL DESCRIPTION: A middle-age female up in the chair in no distress RESPIRATORY SYSTEM: Unlabored breathing , decreased breath sounds at bases HEART: S1 S2 regular rate and rhythm , ABDOMEN: Soft , no tenderness EXTREMITIES: No edema feet - Labs CBC & Chem 7: 01/06/22 07:58 01/06/22 07:58 Labs: Abnormal Lab Results - Last 24 Hours (Table) 01/06/22 01/06/22 01/07/22 Range/Units 16:43 20:02 05:32 POC Glucose (mg/dL) 116 H 121 H 126 H (70-110) mg/dL 01/07/22 Range/Units 11:37 POC Glucose (mg/dL) 138 H (70-110) mg/dL Microbiology - Last 24 Hours (Table) 01/05/22 14:37 Blood Culture - Preliminary Blood No Growth after 24 hours 01/05/22 14:28 Blood Culture - Preliminary Blood No Growth after 24 hours 01/05/22 13:05 Blood Culture - Preliminary Blood No Growth after 24 hours 01/05/22 13:18 Blood Culture - Preliminary Blood No Growth after 24 hours Assessment and Plan (1) Endocarditis Current Visit: Yes Status: Acute Code(s): I38 - ENDOCARDITIS, VALVE UNSPECIFIED SNOMED Code(s): 17244690 Plan: 1patient presented to hospital about 4 days ago predominantly with the right upper and lower extremity weakness in this patient did have abnormal MRI suspicious for acute CVA patient also have a abnormal echocardiogram with concern for possible vegetation of the mitral wall which has been confirmed on a RONALD today, patient did have positive blood culture with staph epi could be the likely pathogen as the patient currently do not have any evidence of cellulitis joint swelling. 2blood culture has been repeated to document clearance of bacteremia , once blood cultures are negative at 72 hours patient will be able to get a PICC line, this was discussed with the [employer] for admitting team 3patient to continue vancomycin pharmacy to dose target trough of 15 while watching kidney function and vancomycin trough closely, and plan is 6 weeks of IV vancomycin on discharge Time with Patient: Less than 30
[2022-01-08] MEDS: SODIUM BICARBONATE TAB 650 MG TAB PO SCH ×3 (09:09→22:12)
[2022-01-08] MEDS: POTASSIUM CHLORIDE ER 20 MEQ TAB.ER PO SCH (09:09)
[2022-01-08] MEDS: FUROSEMIDE 20 MG TAB PO SCH (09:09)
[2022-01-08] MEDS: BACLOFEN 10 MG TAB PO SCH (09:09)
[2022-01-08] MEDS: ENOXAPARIN 100 MG/ML SYRINGE SQ SCH (09:09)
[2022-01-08] MEDS: CITALOPRAM HYDROBROMIDE 20 MG TAB PO SCH (09:09)
[2022-01-08] MEDS: MONTELUKAST 10 MG TAB PO SCH (09:09)
[2022-01-08] MEDS: NICOTINE 14MG/24HR PATCH TRANSDERM SCH (09:09)
[2022-01-08 09:13] LABS: Anisocytosis Slight; Basophils # (A) 0.1 k/uL (0-0.2); Basophils % (A) 1 %; Eosinophils # (A) 0.2 k/uL (0-0.7); Eosinophils % (A) 2 %; HCT 24.5 % (34.0-46.0); HGB 7.6 gm/dL (11.4-16.0); Hypochromasia Marked; Lymphocytes # (A) 1.2 k/uL (1.0-4.8); Lymphocytes % (A) 13 %; MCH 26.6 pg (25.0-35.0); MCHC 30.9 g/dL (31.0-37.0); MCV 86.1 fL (80.0-100.0); Mean Platelet Volume 8.7; Monocytes # (A) 0.4 k/uL (0-1.0); Monocytes % (A) 4 %; Neutrophils # (A) 7.3 k/uL (1.3-7.7); Neutrophils % (A) 78 %; Poikilocytosis Slight; RBC 2.85 m/uL (3.80-5.40); RDW 16.8 % (11.5-15.5); WBC 9.4 k/uL (3.8-10.6)
[2022-01-08 09:20] LABS: Albumin 2.4 g/dL (3.5-5.0); Calcium 8.5 mg/dL (8.4-10.2); Magnesium 1.8 mg/dL (1.6-2.3); Total Bilirubin 0.4 mg/dL (0.2-1.3); Total Protein 5.7 g/dL (6.3-8.2)
[2022-01-08 09:46] LABS: Potassium 4.8 mmol/L (3.5-5.1)
--- NOTE | 2022-01-08 10:16 | P.PN ---
Subjective Progress Note Date: 01/08/22 HISTORY OF PRESENT ILLNESS 56 year-old morbidly obese female one of Dr. 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 fib, patient also known to have non-small cell see of the lung has been on chemotherapy postradiation, she had DVT and PE as well history of obstructive sleep apnea and recurrent TIA, she was hospitalized last in 10/14/2021 for acute hypoxic respiratory failure BiPAP dependent was in earlier on October 06 for acute respiratory failure. Patient has been on Lovenox 200 mg a day for the failure of coagulation with her pulmonary embolism in cancer survival patient. She presented to the emergency department on 01/01/2022 complaining that her right arm be numb and now working properly also her right leg has been weaker than before and have more dropping foot. She had increased pain in the right arm as well or shortness of breath continues to be a problem with minimum exertion. With the weakness in the right side which can be sign of brain metastasis ended up going for CAT scan of the brain which shows no acute intracranial hemorrhage or midline shift there is mild diffuse age-related cerebral atrophy and chronic small vessel ischemic change. With the consent of Pancoast syndrome CAT scan of the lung was perform as well showed left upper lobe process associated with mass effect. There is partial obstruction of the left lower lobe, mild partial left lower lobe atelectasis with few pulmonary nodular in the peripheral measuring from less than centimeter to 1 cm in size. There is also scattered of subcentimeter mediastinal lymph node exist in the left hilum area and mass effect from the left upper lobe. The patient be admitted to the hospital MRI of the brain will be order sheet be seen oncology and pulmonary but will consult neurology as well with a drop foot on the right side and significant weakness in the right arm she might have metastasis to the left temporoparietal area. Might require to be started on steroid to reduce the swelling to decide with oncology with's to do as a next step. Also the possibility of cervical radical up if he is a patient might require to have further testing on her C-spine as well. 01/02: Patient is seen today on the cardiac stepdown unit. She states the weakness in her right arm is not any better. She has been afebrile, heart rate 96, blood pressure 104/61, pulse ox 91% on RA. Triglycerides 82, cholesterol 87, LDL 35, HDL 35. Patient has been seen by pulmonary medicine in agreement for MRI of the brain to rule out metastasis to the brain. Consult was added for oncology, patient follows with Dr. Maria. Neurology consult is pending. Echocardiogram has been ordered. IV fluids will be discontinued. Carotid ultrasound revealed suboptimal study without hemodynamically significant stenosis in either internal carotid artery. 01/05: Patient was seen by telephone neurology over the weekend. Today she underwent a RONALD with cardiology and report is pending. However, an order has been added by cardiology for infectious disease regarding RONALD results. Neurology has recommended a CTA of the head to rule out mycotic aneurysm. Repeat blood work reveals BUN 58 and creatinine 1.87. Hemoglobin 8.9. Platelet count 178. Capillary blood glucose between 89-187. Blood culture staph epidermidis on 2 specimen. patient has been afebrile, heart rate 108, blood pressure 120/56, pulse ox 97% on room air. patient was seen by Dr. Sanford an inpatient rehab. 01/06: Patient continues to have significant weakness in the right side, review RONALD showed slight vegetation patient is seen infectious disease will require probably IV antibiotic for total of 4-6 weeks for endocarditis infectious thrombus causing her stroke. Continue PTOT patient will require little bit more extra help in rehab place with IV antibiotics. All communicated with the social studies department chair this point. 01/07: Patient is seen today rest seen in recliner on the cardiac stepdown unit. She continues to have weakness on the right side. Blood culture repeated are showing no growth at [address] Ibrara would like to wait until greater than 48 hours for PICC line placement. Patient has been afebrile, heart rate 86, blood pressure 114/58, pulse ox 99% on room air. Capillary blood glucose running between 104 and 126. Repeat blood work ordered for tomorrow. 01/08: Patient has more movement of her right arm at the shoulder. She denies any new complaints today. Dr. Ibarra would like to wait until negative blood culture is at 72 hours which will be tomorrow in order to place PICC line. We will add a consult for nephrology to clear patient for PICC line insertion due to kidney disease. Patient is continued on vancomycin, pharmacy is dosing. Repeat blood work reveals WBC 9.4, hemoglobin 7.6. Sodium 136, potassium 4.8, chloride 113, CO2 18, BUN 37 and creatinine 1.54. Liver function tests are normal. LDH 790. Anticipate probable discharge tomorrow to either [facility] or [facility]. REVIEW OF SYSTEMS Constitutional: Mildly overweight, no respiratory distress. EENT: No headache. No blurred vision or double vision, no loss of vision. No loss of Hearing, no ringing in the ears, no dizziness. No nasal drainage or congestion. No epistaxis. No sore throat. Lungs: Significant shortness of breath with extreme wheezes. Cardiovascular: No chest pain, no lower extremity edema. No palpitations. No paroxysmal nocturnal dyspnea. No orthopnea. No lightheadedness or dizziness. No syncopal episodes. Abdominal: No abdominal pain. No nausea, vomiting. No diarrhea. No constipation. No bloody or tarry stools.. No loss of appetite. Genitourinary: No dysuria, increased frequency, urgency. No urinary retention. Musculoskeletal: Generalized myalgia and arthralgia with abnormal balance and gait, she had significant weakness in the right upper extremity and significant weakness in the right lower extremity including dropping foot. Integumentary: No wounds, no lesions. No rash or pruritus. No unusual bruising. No change in hair or nails. Neurologic: Positive weakness of the right side along with speech problem and aphasia without dysphagia currently. Psychiatric: No depression. No anxiety. No mood swings. Endocrine: No abnormal blood sugars. No weight change. No excessive sweating or thirst. No cold intolerance. PHYSICAL EXAMINATION Gen: This is a morbidly obese female sitting in recliner and appears to be in no acute distress. HEENT: Head is atraumatic, normocephalic. Pupils equal, round. Sclerae is anicteric. NECK: Supple. No JVD. No lymphadenopathy. No thyromegaly. LUNGS: Decreased breath some today with significant rhonchi mild crackles in the bases positive mild inspiratory expiratory wheezes. HEART: Regular rate and rhythm. Mild tachycardia has history ABDOMEN: Soft. Bowel sounds are present. No masses. No tenderness. EXTREMITIES: Trace edema decreased pulse bilaterally, right upper extremity had significant weakness with slight pain and discomfort no finding in the shoulder and elbow area, also the right lower extremity has dropping foot with mild discomfort and weakness. NEUROLOGICAL: Patient is awake, alert and oriented x3. Cranial nerves 2 through 12 are grossly intact. Had significant weakness in the right side compared to the left side with dropping foot in the right leg. ASSESSMENT AND PLAN - acute multifocal left frontal parietal infarct appears embolic. Mostly coming from vegetation from endocarditis. We'll continue IV antibiotic and follow-up infectious disease recommendation. Patient will require IV antibiotic for probably 6 weeks. Consult added for nephrology regarding PICC line clearance. -small cell lung/adenocarcinoma of the left side been treated by oncology had chemotherapy and radiation, consult added for oncology. - COPD exacerbation: Most likely caused by the obstructive pneumonia along with a severe hypoxia at this point, patient will benefit from DuoNeb along with Pulmicort continue steroid IV. - chronic hypoxic respiratory failure to 2 continue updraft treatment. - Acute pneumonia ruled out by pulmonary medicine. Antibiotics discontinued . - coagulopathy with DVT and pulmonary embolism: Remain on anticoagulation which patient doing Lovenox 200 mg subcutaneous daily. - Atrial fibrillation, paroxysmal. Has been stable pulse rate running in the 70s. - history of seizure: Has been on Keppra 750 mg twice a day resume medication. - hypothyroidism: Continue levothyroxine 25 g daily. - hyperlipidemia: Remain on atorvastatin 40 mg a day we'll resume medication. - chronic neuropathy: Most likely peripheral neuropathy might be chemotherapy related, remain on gabapentin 300 mg daily at bedtime. - severe GERD/GI prophylaxis: Patient remain on pantoprazole 20 mg daily. - chronic pain syndrome: Remain on hydrocodone 10/325 mg 3 times a day. - acute kidney injury with chronic kidney disease III. Baseline creatinine 1.51.7. Nephrology consult. - DVT prophylaxis: Patient currently being treated with active anticoagulation with Lovenox subcutaneous. - GI prophylaxis: Continue patient on pantoprazole. CODE STATUS: Full code. DISCHARGE PLAN Plan for Wednesday w PICC and long-term IV antibiotics to [facility] or [facility] Impression and plan of care have been directed as dictated by the signing physician. Rukhsana Og nurse practitioner acting as scribe for signing physician. Objective - Vital Signs Vital signs: Vital Signs Temp 97.6 F 01/08/22 04:21 Pulse 88 01/08/22 08:09 Resp 16 01/08/22 04:21 BP 110/72 01/08/22 04:21 Pulse Ox 97 01/08/22 04:21 FiO2 3 01/08/22 08:01 Intake & Output 01/07/22 01/08/22 01/08/22 18:59 06:59 18:59 Intake Total 118 100 Output Total 250 Balance 118 -250 100 Intake: Oral 118 100 Output: Urine 250 Other: Voiding Method Toilet Toilet External Catheter # Voids 1 - Labs CBC & Chem 7: 01/08/22 08:18 01/08/22 08:18 Labs: Abnormal Lab Results - Last 24 Hours (Table) 01/07/22 01/07/22 01/07/22 Range/Units 11:37 16:26 21:47 POC Glucose (mg/dL) 138 H 121 H 127 H (70-110) mg/dL 01/08/22 Range/Units 06:04 POC Glucose (mg/dL) 113 H (70-110) mg/dL Microbiology - Last 24 Hours (Table) 01/05/22 14:28 Blood Culture - Preliminary Blood No Growth after 48 hours 01/05/22 14:37 Blood Culture - Preliminary Blood No Growth after 48 hours 01/05/22 13:18 Blood Culture - Preliminary Blood No Growth after 48 hours 01/05/22 13:05 Blood Culture - Preliminary Blood No Growth after 48 hours
--- NOTE | 2022-01-08 11:00 | P.PN ---
Subjective Progress Note Date: 01/08/22 The patient is seen at bedside and feels about the same. Objective - Vital Signs Vital signs: Vital Signs Temp 98.1 F 01/08/22 09:05 Pulse 96 01/08/22 09:05 Resp 18 01/08/22 09:05 BP 105/70 01/08/22 09:05 Pulse Ox 96 01/08/22 09:05 FiO2 3 01/08/22 08:01 Intake & Output 01/07/22 01/08/22 01/08/22 18:59 06:59 18:59 Intake Total 118 100 Output Total 250 Balance 118 -250 100 Intake: Oral 118 100 Output: Urine 250 Other: Voiding Method Toilet Toilet Toilet External Catheter External Catheter # Voids 1 - Exam Gen.: The patient is seated in the bedside chair. She is well-nourished, well- developed and in no acute distress. Neurologic examination Mental status: The patient is awake, alert and oriented 3. Her speech is clear. There is no dysarthria or aphasia. Cranial nerves: 2-12 grossly intact Motor: Has 4-over the right upper. Right lower is 3-4. Otherwise normal over the left. SOME OF THE WORK-UP DURING THIS HOSPITAL VISIT CONSISTED OF: * Lipid panel: TG 82, Cholestrol 87, LDL 35 and HDL 35 * MRI of the brain revealed small areas of acute CVA left parietal and left frontal region. No hemorrhagic transformation. Age-related atrophic and chronic small vessel ischemic change. I personally reviewed MRI agree with the findings. However there is also evidence of a possible tiny subacute ischemic lesion in the right posterior temporal/occipital cortical region. The pattern of ischemic stroke is highly embolic in nature. * Carotid Doppler revealed suboptimal study without hemodynamically significant stenosis in either ICA. Antegrade flow in both vertebral arteries. * 2-D echo revealed calcified mitral valve, possibility of vegetation cannot be totally excluded. If clinically indicated, a RONALD would be helpful. * Transesophageal echocardiogram on 01/05/2022 was reported as moderate central mitral regurgitation. Normal left ventricle systolic function. Small echo dense lesion attached to the atrial surface of the anterior mitral leaflet consistent with a possible vegetation. - Labs CBC & Chem 7: 01/08/22 08:18 01/08/22 08:18 Labs: Abnormal Lab Results - Last 24 Hours (Table) 0701/07/22 01/07/22 Range/Units 11:37 16:26 21:47 RBC (3.80-5.40) m/uL Hgb (11.4-16.0) gm/dL Hct (34.0-46.0) % MCHC (31.0-37.0) g/dL RDW (11.5-15.5) % Sodium (137-145) mmol/L Chloride (98-107) mmol/L Carbon Dioxide (22-30) mmol/L BUN (7-17) mg/dL Creatinine (0.52-1.04) mg/dL Glucose (74-99) mg/dL POC Glucose (mg/dL) 138 H 121 H 127 H (70-110) mg/dL Lactate Dehydrogenase (313-618) U/L Total Protein (6.3-8.2) g/dL Albumin (3.5-5.0) g/dL 01/08/22 01/08/22 01/08/22 Range/Units 06:04 08:18 08:18 RBC 2.85 L (3.80-5.40) m/uL Hgb 7.6 L (11.4-16.0) gm/dL Hct 24.5 L (34.0-46.0) % MCHC 30.9 L (31.0-37.0) g/dL RDW 16.8 H (11.5-15.5) % Sodium 136 L (137-145) mmol/L Chloride 113 H (98-107) mmol/L Carbon Dioxide 18 L (22-30) mmol/L BUN 37 H (7-17) mg/dL Creatinine 1.54 H (0.52-1.04) mg/dL Glucose 133 H (74-99) mg/dL POC Glucose (mg/dL) 113 H (70-110) mg/dL Lactate Dehydrogenase 790 H (313-618) U/L Total Protein 5.7 L (6.3-8.2) g/dL Albumin 2.4 L (3.5-5.0) g/dL Microbiology - Last 24 Hours (Table) 01/05/22 14:28 Blood Culture - Preliminary Blood No Growth after 48 hours 01/05/22 14:37 Blood Culture - Preliminary Blood No Growth after 48 hours 01/05/22 13:18 Blood Culture - Preliminary Blood No Growth after 48 hours 01/05/22 13:05 Blood Culture - Preliminary Blood No Growth after 48 hours Assessment and Plan Assessment: Acute multifocal left fronto/parietal infarct (with right sided weakness). Due to cardioemoblic and seems due to possible endocarditis. Possible vegetation seen on mitral valve on RONALD, blood culture positive for staph epidermis is concerning for endocarditis Recurrent adenocarcinoma of the lung tatus post chemotherapy in 2016 and 2020. Repeat lung biopsy November 2021 again showing adenocarcinoma. Chronic kidney disease Seizure disorder History of DVT/Pulmonary Embolism Hypercoagulable state with history of protein S and protein C deficiency History of obstructive sleep apnea Hypothyroidism COPD Tobacco use Plan: Once kidney functions improves recommend CTA head to rule out mycotic aneurysm. This is not urgent. On ASA 325mg daily and Lipitor 40mg qhs. For underlying septic emoblic the treatment is antibiotic (currently on Vancomycin) and possible valve replacement if needed. Continue neuro checks. Continue cardiac monitoring PT, OT and FARM ADVISOR are consulted Cardiology is on board Respiratory is on board Infection disease is on board for DVT prophylaxis: On Lovenox 200mg daily. Recommend the patient to follow-up with neurologist as outpatient within 1-2 weeks. Condition is very guarded. The plan is discussed with patient. Paolo Brooks M.D. Neuro-Hospitalist Time with Patient: Less than 30
[2022-01-08 11:17] LABS: Vancomycin,Random 15.8 ug/mL
[2022-01-08 11:44] VITALS: BMI 51.2
[2022-01-08 12:08] LABS: Glucose,Whole Blood 106 mg/dL (70-110)
[2022-01-08 14:21] LABS: Platelet Count 94 k/uL (150-450)
--- NOTE | 2022-01-08 14:25 | P.PN ---
Subjective Progress Note Date: 01/08/22 Principal diagnosis: Shortness of breath On 01/08/2022 patient seen in follow-up on selective care unit. She is awake, in no acute distress, she is up in the recliner, breathing comfortably, patient has been afebrile and hemodynamically stable, she is awake and alert, in some questions appropriately, does cough become short of breath with exertion, but seems to be in no distress. Her follow-up blood cultures have shown no growth. Currently patient remains on vancomycin. Patient had a transesophageal echocardiogram which showed moderate central mitral regurgitation, and small equal density lesion attest to the atrial surface of the anterior mitral leaflet consistent with a possible vegetation. Today's labs have been reviewed showing white blood cell count of 9.4, hemoglobin of 7.6, sodium is 136, potassium is 4.8, CO2 is 18, chloride is 113, BUN is 37 creatinine is 1.54. ID service is following. Neurology is following, and patient's right hand weakness is im proving. She has been able to tolerate ambulation with a walker in the room, Objective - Vital Signs Vital signs: Vital Signs Temp 98 F 01/08/22 12:10 Pulse 104 H 01/08/22 12:10 Resp 16 01/08/22 12:10 BP 106/73 01/08/22 12:10 Pulse Ox 100 01/08/22 12:10 FiO2 3 01/08/22 08:01 Intake & Output 01/07/22 01/08/22 01/08/22 18:59 06:59 18:59 Intake Total 118 100 Output Total 250 Balance 118 -250 100 Weight 127 kg Intake: Oral 118 100 Output: Urine 250 Other: Voiding Method Toilet Toilet Toilet External Catheter External Catheter # Voids 1 1 - Exam GENERAL EXAM: Alert, pleasant, 56-year-old white female, on 2 L of oxygen with pulse ox of 100% comfortable in no apparent distress. HEAD: Normocephalic/atraumatic. EYES: Normal reaction of pupils, equal size. Conjunctiva pink, sclera white. NOSE: Clear with pink turbinates. THROAT: No erythema or exudates. NECK: No masses, no JVD, no thyroid enlargement, no adenopathy. CHEST: No chest wall deformity. Symmetrical expansion. LUNGS: no crackles, wheeze, rhonchi or dullness. Breath sounds on the left CVS: Regular rate and rhythm, normal S1 and S2, no gallops, no murmurs, no rubs ABDOMEN: Soft, nontender. No hepatosplenomegaly, normal bowel sounds, no gua rding or rigidity. EXTREMITIES: No clubbing, no edema, no cyanosis, 2+ pulses and upper and lower extremities. Right hand weakness MUSCULOSKELETAL: Muscle strength and tone normal. SPINE: No scoliosis or deformity SKIN: No rashes CENTRAL NERVOUS SYSTEM: Alert and oriented -3. No focal deficits, tone is normal in all 4 extremities. PSYCHIATRIC: Alert and oriented -3. Appropriate affect. Intact judgment and insight. - Labs CBC & Chem 7: 01/08/22 15:11 01/08/22 08:18 Labs: Abnormal Lab Results - Last 24 Hours (Table) 01/07/22 01/07/22 01/08/22 Range/Units 16:26 21:47 06:04 RBC (3.80-5.40) m/uL Hgb (11.4-16.0) gm/dL Hct (34.0-46.0) % MCHC (31.0-37.0) g/dL RDW (11.5-15.5) % Sodium (137-145) mmol/L Chloride (98-107) mmol/L Carbon Dioxide (22-30) mmol/L BUN (7-17) mg/dL Creatinine (0.52-1.04) mg/dL Glucose (74-99) mg/dL POC Glucose (mg/dL) 121 H 127 H 113 H (70-110) mg/dL Lactate Dehydrogenase (313-618) U/L Total Protein (6.3-8.2) g/dL Albumin (3.5-5.0) g/dL 01/08/22 01/08/22 Range/Units 08:18 08:18 RBC 2.85 L (3.80-5.40) m/uL Hgb 7.6 L (11.4-16.0) gm/dL Hct 24.5 L (34.0-46.0) % MCHC 30.9 L (31.0-37.0) g/dL RDW 16.8 H (11.5-15.5) % Sodium 136 L (137-145) mmol/L Chloride 113 H (98-107) mmol/L Carbon Dioxide 18 L (22-30) mmol/L BUN 37 H (7-17) mg/dL Creatinine 1.54 H (0.52-1.04) mg/dL Glucose 133 H (74-99) mg/dL POC Glucose (mg/dL) (70-110) mg/dL Lactate Dehydrogenase 790 H (313-618) U/L Total Protein 5.7 L (6.3-8.2) g/dL Albumin 2.4 L (3.5-5.0) g/dL Microbiology - Last 24 Hours (Table) 01/05/22 14:28 Blood Culture - Preliminary Blood No Growth after 48 hours 01/05/22 14:37 Blood Culture - Preliminary Blood No Growth after 48 hours 01/05/22 13:18 Blood Culture - Preliminary Blood No Growth after 48 hours 01/05/22 13:05 Blood Culture - Preliminary Blood No Growth after 48 hours Assessment and Plan Plan: Right upper extremity weakness, currently being evaluated by the primary serv ice. MRI scan of the brain showed an acute CVA involving the left frontal and left frontoparietal region of the brain, without hemorrhagic transformation. Acute ischemic stroke, multiple small areas, involving left frontal parietal region, most likely cardioembolic in nature. Neurologically there is some interval improvement in the right upper extremity weakness. The patient is currently on aspirin. The patient is also on IV antibiotics of vancomycin regarding possibility of infective endocarditis with staph epidermidis. The vancomycin trough from yesterday was 13.0. Recurrent adenocarcinoma of the lung, status post chemoradiation in 2016 and 2020. Repeat lung biopsy November 2021, again showed adenocarcinoma. Questionable mitral valve vegetation based on RONALD findings, this along with a possible culture with staph epidermidis as a concern for endocarditis and the patient is currently on vancomycin. Mitral valve regurgitation moderate degree Bacteremia with staph epidermidis, The repeat cultures from 01/05/2022 are both negative. Ongoing tobacco use with nicotine addiction. History of COPD. History of CVA. History of diabetes mellitus. CKD stage 3, creatinine is down to 1.95 History of DVT/pulmonary embolism. Gastroesophageal reflux disease. History of seizure disorder. obstructive sleep apnea syndrome on CPAP therapy Hypothyroidism. History of proteins S and C deficiency. Staph epiderm in the blood Plan: Continue antibiotics and patient remains on vancomycin Follow-up blood cultures have shown no growth Neurologically patient seems to be improving and right hand weakness is improving Continue Lovenox 200 mg subcu daily Continue aspirin PICC line will be inserted for antibiotic treatment I have personally seen and examined the patient, performed the documentation and the assessment and plan as written I have personally seen and examined the patient and reviewed the documentation. I performed a joint evaluation with the nurse practitioner in this evaluation was done more than 20 minutes. I fully agree with the documentation above and the plan of care.. The patient is awaiting a PICC line insertion. Cultures are negative for now. The respiratory status is stable. No new onset focal neurological deficits. Time with Patient: Less than 30
--- NOTE | 2022-01-08 14:32 | P.PN ---
Subjective Progress Note Date: 01/07/22 Principal diagnosis: CVA Still notably weak on right side. Objective - Vital Signs Vital signs: Vital Signs Temp 98.3 F 01/07/22 04:00 Pulse 84 01/07/22 12:00 Resp 16 01/07/22 12:00 BP 111/62 01/07/22 12:00 Pulse Ox 95 01/07/22 12:00 FiO2 Intake & Output 01/06/22 01/07/22 01/07/22 18:59 06:59 18:59 Intake Total 1020 10 Balance 1020 10 Intake: IV 10 Invasive Line 3 10 Intake, IV Titration 500 Amount Vancomycin 2,000 mg In 500 Sodium Chloride 0.9% 500 ml 500 ml @ 167 mls/hr IVPB ONCE ONE Rx#: [id number] Oral 520 Other: Voiding Method Toilet Toilet Toilet # Voids 1 1 - Exam - Constitutional General appearance: Present: no acute distress - EENT Eyes: Present: EOMI ENT: Present: hearing grossly normal, normal oropharynx - Respiratory Respiratory: left: diminished (Only transmitted sounds) - Cardiovascular Rhythm: regular Heart sounds: normal: S1, S2 - Gastrointestinal General gastrointestinal: Present: normal bowel sounds, soft - Integumentary Integumentary: Present: normal - Neurologic Neurologic: Present: CNII-XII intact, focal deficits (Right upper extremity distally 3+/5. Right lower extremity distally about 4/5.) - Musculoskeletal Musculoskeletal: Present: generalized weakness - Psychiatric Psychiatric: Present: A&O x's 3, appropriate affect - Labs CBC & Chem 7: 01/06/22 07:58 01/06/22 07:58 Labs: Abnormal Lab Results - Last 24 Hours (Table) 01/06/22 01/06/22 01/07/22 Range/Units 16:43 20:02 05:32 POC Glucose (mg/dL) 116 H 121 H 126 H (70-110) mg/dL 01/07/22 Range/Units 11:37 POC Glucose (mg/dL) 138 H (70-110) mg/dL Microbiology - Last 24 Hours (Table) 01/05/22 14:37 Blood Culture - Preliminary Blood No Growth after 24 hours 01/05/22 14:28 Blood Culture - Preliminary Blood No Growth after 24 hours 01/05/22 13:05 Blood Culture - Preliminary Blood No Growth after 24 hours 01/05/22 13:18 Blood Culture - Preliminary Blood No Growth after 24 hours Assessment and Plan Plan: Assessment and Plan (1) Cerebrovascular accident (CVA) Narrative/Plan: - Patient's MRI shows evidence of CVA in the left parietal area, consistent with her symptoms on the right side. T - here is no evidence of brain metastasis. Defer to the admitting service and urology for further management Current Visit: Yes Status: Acute Code(s): I63.9 - CEREBRAL INFARCTION, UNSPECIFIED SNOMED Code(s): 759071228 (2) Lung consolidation Narrative/Plan: - The patient has essentially a whiteout of the left lung, due to atelectasis from cancer progression.. - However she appears to be fairly well compensated. She seemed to be quite comfortable at rest, and did not feel that her respiratory status was any different than at home. At home she uses oxygen only at night. Therefore acute intervention for the same does not appear to be required Current Visit: Yes Status: Acute Code(s): J18.1 - LOBAR PNEUMONIA, UNSPECIFIED ORGANISM SNOMED Code(s): 21924779 (3) Non-small cell lung cancer (NSCLC) Narrative/Plan: The patient has known progression. At this time biomarker testing is pending to determine next line of treatment. She has follow-up scheduled in the office. Current Visit: Yes Status: Chronic Priority: High Code(s): C34.90 - MALIGNANT NEOPLASM OF UNSP PART OF UNSP BRONCHUS OR LUNG SNOMED Code(s): 119549475 Recurrent lung adenocarcinoma. NGS and PDL 1 testing results were available in the office this afternoon PDL 1 was less than 1%, KRAS did have a mutation but, unfortunately sub type that we do not have targeted agent for. Primary goal is improved and maximize performance Rehab is planned initially and then after rehab discharges patient she can sched f/u with Oncologist. Continue to follow with Social Work for concern of eviction and social matters. Continue with PT/OT and await finalized rehab plans prior to next treatment plan
--- NOTE | 2022-01-08 14:35 | P.PN ---
Subjective Progress Note Date: 01/08/22 Principal diagnosis: CVA She is laying in bed during evaluation, right hand and right Lower extremity still weak and not much improvement from day prior. Still working with PT/OT Platelet count down from 140K to 94K - Recheck Objective - Vital Signs Vital signs: Vital Signs Temp 98 F 01/08/22 12:10 Pulse 104 H 01/08/22 12:10 Resp 16 01/08/22 12:10 BP 106/73 01/08/22 12:10 Pulse Ox 100 01/08/22 12:10 FiO2 3 01/08/22 08:01 Intake & Output 01/07/22 01/08/22 01/08/22 18:59 06:59 18:59 Intake Total 118 100 Output Total 250 Balance 118 -250 100 Weight 127 kg Intake: Oral 118 100 Output: Urine 250 Other: Voiding Method Toilet Toilet Toilet External Catheter External Catheter # Voids 1 1 - Exam - Constitutional General appearance: Present: no acute distress - EENT Eyes: Present: EOMI ENT: Present: hearing grossly normal, normal oropharynx - Respiratory Respiratory: left: diminished (Only transmitted sounds) - Cardiovascular Rhythm: regular Heart sounds: normal: S1, S2 - Gastrointestinal General gastrointestinal: Present: normal bowel sounds, soft - Integumentary Integumentary: Present: normal - Neurologic Neurologic: Present: CNII-XII intact, focal deficits (Right upper extremity distally 3+/5. Right lower extremity distally about 4/5.) - Musculoskeletal Musculoskeletal: Present: generalized weakness - Psychiatric Psychiatric: Present: A&O x's 3, appropriate affect - Labs CBC & Chem 7: 01/08/22 08:18 01/08/22 08:18 Labs: Abnormal Lab Results - Last 24 Hours (Table) 01/07/22 01/07/22 01/08/22 Range/Units 16:26 21:47 06:04 RBC (3.80-5.40) m/uL Hgb (11.4-16.0) gm/dL Hct (34.0-46.0) % MCHC (31.0-37.0) g/dL RDW (11.5-15.5) % Plt Count (150-450) k/uL Sodium (137-145) mmol/L Chloride (98-107) mmol/L Carbon Dioxide (22-30) mmol/L BUN (7-17) mg/dL Creatinine (0.52-1.04) mg/dL Glucose (74-99) mg/dL POC Glucose (mg/dL) 121 H 127 H 113 H (70-110) mg/dL Lactate Dehydrogenase (313-618) U/L Total Protein (6.3-8.2) g/dL Albumin (3.5-5.0) g/dL 01/08/22 01/08/22 Range/Units 08:18 08:18 RBC 2.85 L (3.80-5.40) m/uL Hgb 7.6 L (11.4-16.0) gm/dL Hct 24.5 L (34.0-46.0) % MCHC 30.9 L (31.0-37.0) g/dL RDW 16.8 H (11.5-15.5) % Plt Count 94 L (150-450) k/uL Sodium 136 L (137-145) mmol/L Chloride 113 H (98-107) mmol/L Carbon Dioxide 18 L (22-30) mmol/L BUN 37 H (7-17) mg/dL Creatinine 1.54 H (0.52-1.04) mg/dL Glucose 133 H (74-99) mg/dL POC Glucose (mg/dL) (70-110) mg/dL Lactate Dehydrogenase 790 H (313-618) U/L Total Protein 5.7 L (6.3-8.2) g/dL Albumin 2.4 L (3.5-5.0) g/dL Microbiology - Last 24 Hours (Table) 01/05/22 14:28 Blood Culture - Preliminary Blood No Growth after 48 hours 01/05/22 14:37 Blood Culture - Preliminary Blood No Growth after 48 hours 01/05/22 13:18 Blood Culture - Preliminary Blood No Growth after 48 hours 01/05/22 13:05 Blood Culture - Preliminary Blood No Growth after 48 hours Assessment and Plan Plan: Assessment and Plan (1) Cerebrovascular accident (CVA) Narrative/Plan: - Patient's MRI shows evidence of CVA in the left parietal area, consistent with her symptoms on the right side. T - here is no evidence of brain metastasis. Defer to the admitting service and urology for further management Current Visit: Yes Status: Acute Code(s): I63.9 - CEREBRAL INFARCTION, UNSPECIFIED SNOMED Code(s): 607626585 (2) Lung consolidation Narrative/Plan: - The patient has essentially a whiteout of the left lung, due to atelectasis from cancer progression.. - However she appears to be fairly well compensated. She seemed to be quite comfortable at rest, and did not feel that her respiratory status was any different than at home. At home she uses oxygen only at night. Therefore acute intervention for the same does not appear to be required Current Visit: Yes Status: Acute Code(s): J18.1 - LOBAR PNEUMONIA, UNSPECIFIED ORGANISM SNOMED Code(s): 53075350 (3) Non-small cell lung cancer (NSCLC) Narrative/Plan: The patient has known progression. At this time biomarker testing is pending to determine next line of treatment. She has follow-up scheduled in the office. Current Visit: Yes Status: Chronic Priority: High Code(s): C34.90 - MALIGNANT NEOPLASM OF UNSP PART OF UNSP BRONCHUS OR LUNG SNOMED Code(s): 609011608 Recurrent lung adenocarcinoma. NGS and PDL 1 testing results were available in the office this afternoon PDL 1 was less than 1%, KRAS did have a mutation but, unfortunately sub type that we do not have targeted agent for. Primary goal is improved and maximize performance Rehab is planned initially and then after rehab discharges patient she can sched f/u with Oncologist. Continue to follow with Social Work for concern of eviction and social matters. Continue with PT/OT and await finalized rehab plans prior to next treatment plan Renal function is continuing to improve Platelt count has dropped by half however, therefore will re-draw CBC now Dr. Colón: i have completed the full history and physical and adeveloped the above impression and plan, agree with dictation, dictated as a scribe
[2022-01-08 15:32] LABS: Anisocytosis Slight; Basophils % (A) 0 %; Eosinophils # (A) 0.2 k/uL (0-0.7); Eosinophils % (A) 2 %; HCT 25.8 % (34.0-46.0); HGB 7.7 gm/dL (11.4-16.0); Hypochromasia Marked; Lymphocytes # (A) 0.9 k/uL (1.0-4.8); Lymphocytes % (A) 10 %; MCH 25.1 pg (25.0-35.0); MCV 83.6 fL (80.0-100.0); Mean Platelet Volume 7.9; Monocytes # (A) 0.4 k/uL (0-1.0); Monocytes % (A) 4 %; Neutrophils # (A) 7.7 k/uL (1.3-7.7); Neutrophils % (A) 82 %; Platelet Count 124 k/uL (150-450); Poikilocytosis Slight; RBC 3.08 m/uL (3.80-5.40); RDW 16.8 % (11.5-15.5); WBC 9.4 k/uL (3.8-10.6)
[2022-01-08 16:01] LABS: INR 1.4 (<1.2); Prothrombin Time 14.5 sec (9.0-12.0)
[2022-01-08 16:39] LABS: Glucose,Whole Blood 109 mg/dL (70-110)
[2022-01-08 16:45] LABS: Partial Thromboplastin Time 150.1 sec (22.0-30.0)
[2022-01-08] MEDS: TIOTROPIUM 2.5 MCG INHALER INHALATION SCH (19:46)
[2022-01-08 20:11] LABS: Glucose,Whole Blood 142 mg/dL (70-110)
[2022-01-08] MEDS: ATORVASTATIN 40 MG TAB PO SCH (20:20)
[2022-01-08] MEDS: GABAPENTIN 300 MG CAP PO SCH (20:20)
[2022-01-08] MEDS: ASPIRIN 325 MG TAB PO SCH (20:20)
[2022-01-08] MEDS: HYDROcodone/APAP 10-325MG 1 EACH TAB PO PRN (20:21)
[2022-01-09 06:21] LABS: Glucose,Whole Blood 122 mg/dL (70-110)
[2022-01-09] MEDS: LEVOTHYROXINE 25 MCG TAB PO SCH (06:23)
[2022-01-09] MEDS: PANTOPRAZOLE 40 MG TABLET PO SCH (06:23)
[2022-01-09] MEDS: INSULIN ASPART (NovoLOG) 100 UNIT/ML VIAL SQ SCH ×2 (06:23→12:38)
--- NOTE | 2022-01-09 07:49 | P.DS ---
Providers Date of admission: 01/01/22 15:04 Expected date of discharge: 01/09/22 Attending physician: Edin Elizondo Consults: 01/01/22 15:04 Consult Physician Urgent Consulting Provider: Wes Brooks Consult Reason/Comments: Large lung consolidation Do you want consulting provider notified?: Yes 01/01/22 15:05 Consult Physician Urgent Consulting Provider: Bharath aDrby Consult Reason/Comments: cva Do you want consulting provider notified?: Yes 01/02/22 08:50 Consult Physician Routine Consulting Provider: Lotus Maria Consult Reason/Comments: lung bx recently Do you want consulting provider notified?: Yes 01/03/22 10:30 Consult Physician Routine Consulting Provider: Drake Sanford Consult Reason/Comments: CVA possible IPR Do you want consulting provider notified?: Yes 01/05/22 11:54 Consult Physician Stat Consulting Provider: Maria M Ibarra Consult Reason/Comments: RONALD results Do you want consulting provider notified?: Already Contacted 01/05/22 14:08 Consult Physician Routine Consulting Provider: Maria M Ibarra Consult Reason/Comments: positive blood culture Do you want consulting provider notified?: Yes 01/08/22 10:14 Consult Physician Routine Consulting Provider: Meek Quach Consult Reason/Comments: Clearance for PICC-will be ordered tomorrow Do you want consulting provider notified?: Yes Primary care physician: Lise Urias Hospital Course: HISTORY OF PRESENT ILLNESS 56 year-old morbidly obese female one of Dr. 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 fib, patient also known to have non-small cell see of the lung has been on chemotherapy postradiation, she had DVT and PE as well history of obstructive sleep apnea and recurrent TIA, she was hospitalized last in 10/14/2021 for acute hypoxic respiratory failure BiPAP dependent was in earlier on October 06 for acute respiratory failure. Patient has been on Lovenox 200 mg a day for the failure of coagulation with her pulmonary embolism in cancer survival patient. She presented to the emergency department on 01/01/2022 complaining that her right arm be numb and now working properly also her right leg has been weaker than before and have more dropping foot. She had increased pain in the right arm as well or shortness of breath continues to be a problem with minimum exertion. With the weakness in the right side which can be sign of brain metastasis ended up going for CAT scan of the brain which shows no acute intracranial hemorrhage or midline shift there is mild diffuse age-related cerebral atrophy and chronic small vessel ischemic change. With the consent of Pancoast syndrome CAT scan of the lung was perform as well showed left upper lobe process associated with mass effect. There is partial obstruction of the left lower lobe, mild partial left lower lobe atelectasis with few pulmonary nodular in the peripheral measuring from less than centimeter to 1 cm in size. There is also scattered of subcentimeter mediastinal lymph node exist in the left hilum area and mass effect from the left upper lobe. The patient be admitted to the hospital MRI of the brain will be order sheet be seen oncology and pulmonary but will consult neurology as well with a drop foot on the right side and significant weakness in the right arm she might have metastasis to the left temporoparietal area. Might require to be started on steroid to reduce the swelling to decide with oncology with's to do as a next step. Also the possibility of cervical radical up if he is a patient might require to have further testing on her C-spine as well. 01/02: Patient is seen today on the cardiac stepdown unit. She states the weakness in her right arm is not any better. She has been afebrile, heart rate 96, blood pressure 104/61, pulse ox 91% on RA. Triglycerides 82, cholesterol 87, LDL 35, HDL 35. Patient has been seen by pulmonary medicine in agreement for MRI of the brain to rule out metastasis to the brain. Consult was added for oncology, patient follows with Dr. Maria. Neurology consult is pending. Echocardiogram has been ordered. IV fluids will be discontinued. Carotid ultrasound revealed suboptimal study without hemodynamically significant stenosis in either internal carotid artery. 01/05: Patient was seen by telephone neurology over the weekend. Today she underwent a RONALD with cardiology and report is pending. However, an order has been added by cardiology for infectious disease regarding RONALD results. Neurology has recommended a CTA of the head to rule out mycotic aneurysm. Repeat blood work reveals BUN 58 and creatinine 1.87. Hemoglobin 8.9. Platelet count 178. Capillary blood glucose between 89-187. Blood culture staph epidermidis on 2 specimen. patient has been afebrile, heart rate 108, blood pressure 120/56, pulse ox 97% on room air. patient was seen by Dr. Sanford an inpatient rehab. 01/06: Patient continues to have significant weakness in the right side, review RONALD showed slight vegetation patient is seen infectious disease will require probably IV antibiotic for total of 4-6 weeks for endocarditis infectious thrombus causing her stroke. Continue PTOT patient will require little bit more extra help in rehab place with IV antibiotics. All communicated with the health and social care teacher this point. 01/07: Patient is seen today rest seen in recliner on the cardiac stepdown unit. She continues to have weakness on the right side. Blood culture repeated are showing no growth at [address] Ibarra would like to wait until greater than 48 hours for PICC line placement. Patient has been afebrile, heart rate 86, blood pressure 114/58, pulse ox 99% on room air. Capillary blood glucose running between 104 and 126. Repeat blood work ordered for tomorrow. 01/08: Patient has more movement of her right arm at the shoulder. She denies any new complaints today. Dr. Ibarra would like to wait until negative blood culture is at 72 hours which will be tomorrow in order to place PICC line. We will add a consult for nephrology to clear patient for PICC line insertion due to kidney disease. Patient is continued on vancomycin, pharmacy is dosing. Repeat blood work reveals WBC 9.4, hemoglobin 7.6. Sodium 136, potassium 4.8, chloride 113, CO2 18, BUN 37 and creatinine 1.54. Liver function tests are normal. LDH 790. Anticipate probable discharge tomorrow to either [facility] or [facility] . 7/22: Blood cultures are now negative at 72 hours and PICC line will be ordered. Repeat blood work ordered for this morning for chemistry panel. Patient remains on vancomycin with plan. For this to continue after discharge at rehab. Plan is for subacute rehab to continue her course of IV antibiotics following that, she will see her oncologist to plan and scheduled treatment for lung adenocarcinoma. Patient utilizes CPAP during the night. Capillary blood glucose running between 109 and 142. Repeat blood work reveals WBC of 8.5, Hemoccult and some 0.2, platelet count 102. INR 1.2. Sodium 137, potassium 4.7, chloride 108, CO2 23, BUN 34, creatinine 1.74. Blood sugar 96. Liver function tests are normal. Albumin 2.8. Patient has been seen by nephrology and cleared to proceed with PICC line in the right arm. Also abdominal imaging imaging recommended as an outpatient. Patient will be discharged today in stable condition DISCHARGE DIAGNOSES - acute multifocal left frontal parietal infarct appears embolic. Mostly coming from vegetation from endocarditis with Staphylococcus epidermidis bacteremia. -small cell lung/adenocarcinoma of the left side been treated by oncology had chemotherapy and radiation - COPD exacerbation - chronic hypoxic respiratory failure - Acute pneumonia ruled out by pulmonary medicine. - coagulopathy with DVT and pulmonary embolism - Atrial fibrillation, paroxysmal. - history of seizure - hypothyroidism - hyperlipidemia - chronic neuropathy: Most likely peripheral neuropathy might be chemotherapy related - severe GERD - chronic pain syndrome - acute kidney injury with chronic kidney disease III. DISCHARGE PLAN Plan for Wednesday w PICC and long-term IV antibiotics to [facility] or [facility] Greater than 35 minutes was utilized and coordinating patient's discharge. Impression and plan of care have been directed as dictated by the signing physician. Rukhsana Og nurse practitioner acting as scribe for signing physician. Patient Condition at Discharge: Serious Plan - Discharge Summary Discharge Rx Participant: No New Discharge Prescriptions: New guaiFENesin-Coden 100-10MG/5ML [Robitussin AC] 10 ml PO Q6HR PRN ml PRN Reason: Cough Albuterol Nebulized [Ventolin Nebulized] 2.5 mg INHALATION RT-QID PRN ml PRN Reason: Shortness Of Breath Or Wheezing Nicotine 14Mg/24Hr Patch [Habitrol] 1 patch TRANSDERM DAILY patch INSULIN ASPART (NovoLOG) [NovoLOG (formulary)] 0 unit SQ ACHS each Sodium Bicarbonate Tab 650 mg PO TID tab Vancomycin 1,000 mg IVPB Q24HR 42 Days each Continue Citalopram Hydrobromide [CeleXA] 20 mg PO DAILY Pantoprazole Sodium 20 mg PO DAILY Levothyroxine Sodium [Synthroid] 25 mcg PO AC-BRKFST levETIRAcetam [Keppra] 750 mg PO BID Montelukast [Singulair] 10 mg PO DAILY Furosemide [Lasix] 20 mg PO DAILY Tiotropium 2.5 Mcg/Puff [Spiriva Respimat 2.5 Mcg] 2 puff INHALATION RT-DAILY Gabapentin 300 mg PO HS #3 cap Albuterol Sulfate [Ventolin HFA] 1 - 2 puff INHALATION RT-Q6H PRN PRN Reason: Shortness Of Breath Atorvastatin [Lipitor] 40 mg PO HS Ergocalciferol [Vitamin D2 (1250 Mcg = 21850 Iu)] 1,250 mcg PO TU Baclofen [Lioresal] 20 mg PO DAILY Aspirin 325 mg PO DAILY Enoxaparin [Lovenox] 200 mg SQ DAILY Potassium Chloride [Klor-Con M10] 20 meq PO DAILY Fluticasone/Vilanterol [Breo Ellipta 100-25 Mcg Inhaler] 1 puff INHALATION RT-DAILY Changed HYDROcodone/APAP 10-325MG [[place] 10-325] 1 tab PO HS PRN #3 tab PRN Reason: Pain Discontinued metFORMIN HCL ER [Glucophage XR] 500 mg PO HS Discharge Medication List Citalopram Hydrobromide [CeleXA] 20 mg PO DAILY 11/16/18 [History] Pantoprazole Sodium 20 mg PO DAILY 11/16/18 [History] Albuterol Sulfate [Ventolin HFA] 1 - 2 puff INHALATION RT-Q6H PRN 11/14/20 [History] Levothyroxine Sodium [Synthroid] 25 mcg PO AC-BRKFST 11/14/20 [History] Atorvastatin [Lipitor] 40 mg PO HS 01/02/21 [History] Aspirin 325 mg PO DAILY 10/06/21 [History] Baclofen [Lioresal] 20 mg PO DAILY 10/06/21 [History] Enoxaparin [Lovenox] 200 mg SQ DAILY 10/06/21 [History] Ergocalciferol [Vitamin D2 (1250 Mcg = 38238 Iu)] 1,250 mcg PO TU 10/06/21 [History] Montelukast [Singulair] 10 mg PO DAILY 10/06/21 [History] levETIRAcetam [Keppra] 750 mg PO BID 10/06/21 [History] Potassium Chloride [Klor-Con M10] 20 meq PO DAILY 12/09/21 [History] Fluticasone/Vilanterol [Breo Ellipta 100-25 Mcg Inhaler] 1 puff INHALATION RT- DAILY 01/01/22 [History] Furosemide [Lasix] 20 mg PO DAILY 01/01/22 [History] Tiotropium 2.5 Mcg/Puff [Spiriva Respimat 2.5 Mcg] 2 puff INHALATION RT-DAILY 01/01/22 [History] Albuterol Nebulized [Ventolin Nebulized] 2.5 mg INHALATION RT-QID PRN ml 01/09/22 [Rx] Gabapentin 300 mg PO HS #3 cap 01/09/22 [Rx] HYDROcodone/APAP 10-325MG [[place] 10-325] 1 tab PO HS PRN #3 tab 01/09/22 [Rx] INSULIN ASPART (NovoLOG) [NovoLOG (formulary)] 0 unit SQ ACHS each 01/09/22 [Rx] Nicotine 14Mg/24Hr Patch [Habitrol] 1 patch TRANSDERM DAILY patch 01/09/22 [Rx] Sodium Bicarbonate Tab 650 mg PO TID tab 01/09/22 [Rx] Vancomycin 1,000 mg IVPB Q24HR 42 Days each 01/09/22 [Rx] guaiFENesin-Coden 100-10MG/5ML [Robitussin AC] 10 ml PO Q6HR PRN ml 01/09/22 [Rx] Follow up Appointment(s)/Referral(s): Bernadette Stewart, ANNY [Family Provider] - 1 Week (AFTER DISCHARGE FROM REHAB) Ambulatory/Diagnostic Orders: C Reactive Protein [LAB.AMB] Location: None Selected Complete Blood Count w/diff [LAB.AMB] Location: None Selected Comprehensive Metabolic Panel [LAB.AMB] Location: None Selected Erythrocyte Sedimentation Rate [LAB.AMB] Location: None Selected Vancomycin,Trough [LAB.AMB] Location: None Selected Activity/Diet/Wound Care/Special Instructions: [facility] will transport pt at d/c, call [phone] Discharge Disposition: TRANSFER TO SNF/ECF
[2022-01-09] MEDS: SYMBICORT 80-4.5 MCG INHALER INHALATION SCH (07:56)
[2022-01-09 08:08] LABS: Anisocytosis Slight; Basophils % (A) 0 %; Eosinophils # (A) 0.1 k/uL (0-0.7); Eosinophils % (A) 2 %; HCT 23.8 % (34.0-46.0); HGB 7.2 gm/dL (11.4-16.0); Hypochromasia Marked; Lymphocytes # (A) 0.7 k/uL (1.0-4.8); Lymphocytes % (A) 8 %; MCHC 30.3 g/dL (31.0-37.0); MCV 82.7 fL (80.0-100.0); Mean Platelet Volume 7.9; Monocytes # (A) 0.5 k/uL (0-1.0); Monocytes % (A) 6 %; Neutrophils % (A) 82 %; Platelet Count 102 k/uL (150-450); Poikilocytosis Slight; RBC 2.87 m/uL (3.80-5.40); RDW 16.7 % (11.5-15.5); WBC 8.5 k/uL (3.8-10.6)
[2022-01-09 08:17] LABS: INR 1.2 (<1.2); Prothrombin Time 12.9 sec (9.0-12.0)
[2022-01-09 08:24] LABS: Albumin 2.8 g/dL (3.5-5.0); Calcium 9.3 mg/dL (8.4-10.2); Potassium 4.7 mmol/L (3.5-5.1); Total Bilirubin 0.2 mg/dL (0.2-1.3); Total Protein 6.4 g/dL (6.3-8.2)
[2022-01-09 08:28] LABS: Vancomycin,Random 12.8 ug/mL
[2022-01-09] MEDS ORDERED: VANCOMYCIN 2,000 MG in SODIUM CHLORIDE 0.9% 500 ML 500 ML IVPB ONE (09:00)
[2022-01-09 09:56] VITALS: PULSE 90; RESP 18; TEMP 98.1
[2022-01-09] MEDS: NICOTINE 14MG/24HR PATCH TRANSDERM SCH (09:58)
[2022-01-09] MEDS: ENOXAPARIN 100 MG/ML SYRINGE SQ SCH (09:59)
[2022-01-09] MEDS: SODIUM BICARBONATE TAB 650 MG TAB PO SCH (09:59)
[2022-01-09] MEDS: MONTELUKAST 10 MG TAB PO SCH (09:59)
[2022-01-09] MEDS: BACLOFEN 10 MG TAB PO SCH (09:59)
[2022-01-09] MEDS: POTASSIUM CHLORIDE ER 20 MEQ TAB.ER PO SCH (09:59)
[2022-01-09] MEDS: FUROSEMIDE 20 MG TAB PO SCH (09:59)
[2022-01-09] MEDS: CITALOPRAM HYDROBROMIDE 20 MG TAB PO SCH (10:00)
[2022-01-09] MEDS: SODIUM CHLORIDE 0.9% 1,000 ML IV SCH (10:00)
--- NOTE | 2022-01-09 10:28 | P.NPCON ---
History of Present Illness - Reason for Consult acute renal failure - History of Present Illness Patient is a 56-year-old female with history of COPD, CVA, recurrent DVT and PE. Patient has underlying history of adenocarcinoma of the lung with left upper lobe mass with mass effect. She is being followed by oncology and pulmonology. Patient was admitted to the hospital with right arm numbness with CT showing no acute hemorrhage or infarct Patient has had Staphylococcus epidermidis bacteremia. RONALD showed evidence of small vegetation and patient is required to be on antibiotics for to 4-6 weeks. Patient denies any previous history of kidney diseases. Serum creatinine was 2.1 on initial admission. It did go down to about 1.5 and to date is 1.7 mg/dL. Previous creatinine has been around 1.4-1.9 mg/dL in September 2021. Patient has an external catheter. She has had decent urine output Blood pressure is on the lower side with systolic 90s to low 100s. Patient is not on any antihypertensive medications. She is maintained on vancomycin No other nephrotoxic agents on board. No abdominal imaging noted. Review of Systems As per HPI Past Medical History Past Medical History: Blood Disorder, Cancer, COPD, CVA/TIA, Diabetes Mellitus, Deep Vein Thrombosis (DVT), GERD/Reflux, Pneumonia, Pulmonary Embolus (PE), Seizure Disorder, Sleep Apnea/CPAP/BIPAP, Thyroid Disorder Additional Past Medical History / Comment(s): L lung cancer with radiation/chemo and pt completed 01/2021, TIA-no residual effects, blood clot left leg and PE left lung, BLANCA with Cpap, last seizure APPROX 2013 bronchitis, protein S and C deficiency, bilateral ankle/pedal edema, past hx falls, DDD, chronic back and bilateral foot pain, weakness in rt legs thought d/t pinched nerve in back, vertigo.COUGHED UP BLOOD History of Any Multi-Drug Resistant Organisms: None Reported Past Surgical History: Tubal Ligation, Uterine Ablation Additional Past Surgical History / Comment(s): D&C, bronchoscopy with L lung biopsy x 2 Past Anesthesia/Blood Transfusion Reactions: No Reported Reaction Past Psychological History: Depression Smoking Status: Current every day smoker Past Alcohol Use History: None Reported Past Drug Use History: None Reported - Past Family History Mother Family Medical History: CVA/TIA Additional Family Medical History / Comment(s): Mother of a CVA at the age of 71 yrs. Brother(s) Family Medical History: No Reported History Additional Family Medical History / Comment(s): Patient has no children. Father Additional Family Medical History / Comment(s): Father was an alcoholic and drug addict. Medications and Allergies Home Medications Medication Instructions Recorded Confirmed Type Citalopram Hydrobromide [CeleXA] 20 mg PO DAILY 11/16/18 01/01/22 History Pantoprazole Sodium 20 mg PO DAILY 11/16/18 01/01/22 History Albuterol Sulfate [Ventolin HFA] 1 - 2 puff INHALATION RT-Q6H PRN 11/14/20 01/01/22 History Levothyroxine Sodium [Synthroid] 25 mcg PO AC-BRKFST 11/14/20 01/01/22 History Atorvastatin [Lipitor] 40 mg PO HS 01/02/21 01/01/22 History Aspirin 325 mg PO DAILY 10/06/21 01/01/22 History Baclofen [Lioresal] 20 mg PO DAILY 10/06/21 01/01/22 History Enoxaparin [Lovenox] 200 mg SQ DAILY 10/06/21 01/01/22 History Ergocalciferol [Vitamin D2 (1250 1,250 mcg PO TU 10/06/21 01/01/22 History Mcg = 94116 Iu)] Montelukast [Singulair] 10 mg PO DAILY 10/06/21 01/01/22 History levETIRAcetam [Keppra] 750 mg PO BID 10/06/21 01/01/22 History Potassium Chloride [Klor-Con M10] 20 meq PO DAILY 12/09/21 01/01/22 History Fluticasone/Vilanterol [Breo 1 puff INHALATION RT-DAILY 01/01/22 01/01/22 History Ellipta 100-25 Mcg Inhaler] Furosemide [Lasix] 20 mg PO DAILY 01/01/22 01/01/22 History Tiotropium 2.5 Mcg/Puff [Spiriva 2 puff INHALATION RT-DAILY 01/01/22 01/01/22 History Respimat 2.5 Mcg] Albuterol Nebulized [Ventolin 2.5 mg INHALATION RT-QID PRN ml 01/09/22 Rx Nebulized] Gabapentin 300 mg PO HS #3 cap 01/09/22 Rx HYDROcodone/APAP 10-325MG [[place] 1 tab PO HS PRN #3 tab 01/09/22 Rx 10-325] INSULIN ASPART (NovoLOG) [NovoLOG 0 unit SQ ACHS each 01/09/22 Rx (formulary)] Nicotine 14Mg/24Hr Patch [Habitrol] 1 patch TRANSDERM DAILY patch 01/09/22 Rx Sodium Bicarbonate Tab 650 mg PO TID tab 01/09/22 Rx Vancomycin 1,000 mg IVPB Q24HR 42 Days each 01/09/22 Rx guaiFENesin-Coden 100-10MG/5ML 10 ml PO Q6HR PRN ml 01/09/22 Rx [Robitussin AC] Allergies Allergy/AdvReac Type Severity Reaction Status Date / Time doxycycline Allergy Rash/Hives Verified 01/01/22 18:18 Penicillins Allergy Rash/Hives, Verified 01/01/22 18:18 "hard to heal" Sulfa (Sulfonamide Allergy Rash/Hives,"hard Verified 01/01/22 18:18 Antibiotics) to heal" wool Allergy Rash/Hives, Verified 01/01/22 18:18 itching ivory soap Allergy Rash/Hives, Uncoded 01/01/22 11:48 itching Physical Exam Vitals: Vital Signs Temp Pulse Pulse Resp BP Pulse Ox 01/09/22 09:53 98.1 F 90 18 106/56 98 01/09/22 03:48 98.4 F 89 16 111/72 98 01/09/22 00:00 97.5 F L 89 18 96/63 99 01/08/22 20:05 86 01/08/22 20:00 97.6 F 96 16 109/70 99 01/08/22 19:48 88 01/08/22 16:00 104 H 18 103/70 100 01/08/22 12:10 98 F 104 H 16 106/73 100 Intake and Output 01/08/22 01/09/22 01/09/22 22:59 06:59 14:59 Other: Voiding Method Toilet Toilet External Catheter External Catheter # Voids 1 1 1 Patient is awake, comfortable, not in any acute distress Examination of the heart S1 and S2 Examination of the lungs bilateral breath sounds are heard Abdomen is soft nontender Examination lower extremities shows edema 1+ bilaterally Results - Lab Results Most recent lab results Calcium 9.3 mg/dL (8.4-10.2) 01/09/22 07:51 Magnesium 1.8 mg/dL (1.6-2.3) 01/08/22 08:18 01/09/22 07:51 01/09/22 07:51 Assessment and Plan Assessment: 1. Acute kidney injury mostly ATN currently nonoliguric, rule out urine retention. Blood pressure is on the lower side. 2. Hypokalemia being replaced 3. Acute multifocal left frontal parietal infarct possibly related to endocarditis. 4. Staphylococcus epidermidis bacteremia maintained on vancomycin 5. Small cell/adenocarcinoma of the left lung being followed by oncology. History of chemotherapy and radiation therapy 6. Paroxysmal A. fib 7. Chronic kidney disease stage IIIB with serum creatinine as low as 0.9 on 11/14/2020 and episode of acute kidney injury in September 2021 with peak creatinine at that time of 1.9 mg/dL. Plan: Okay to proceed with PICC line on the right arm Rule out urine retention Patient will need follow-up as outpatient for CK D and acute kidney injury. Patient will need abdominal imaging. This can be done as outpatient as well if she is discharged today. Thank you for the consultation. We'll continue to follow the patient with you during her hospitalization.
[2022-01-09] MEDS ORDERED: LIDOCAINE 1% INJ 10MG/ML (5 ML VIAL-PF) SQ ONE (11:43)
[2022-01-09 12:23] LABS: Glucose,Whole Blood 153 mg/dL (70-110)
--- NOTE | 2022-01-09 12:53 | IR ---
EXAMINATION TYPE: IR cvc insert >=5 years DATE OF EXAM: 01/09/2022 COMPARISON: NONE CLINICAL HISTORY: Infection Needs long-term intravenous access for antibiotics. PROCEDURE: Hand hygiene obtained with soap and water and alcohol-based hand rub. After informed consent, the skin overlying the right brachial vein was localized with ultrasound and noted to be compressible and patent. An ultrasound image was obtained and submitted on the patient's chart. The overlying skin was prepped and draped and Lidocaine was used for local anesthesia. A sk in yolie was made with a scalpel. Access was gained to the vein under ultrasound guidance with a 21 g auge needle and a 0.018 inch wire was advanced. Access site was dilated with Peel-Away sheath and ca theter tailored to the appropriate length and advanced such that the distal tip is at the cavoatrial junction. Spot image was obtained verifying placement. Catheter was fixed to the skin and a sterile dressing was placed following hemostasis. Catheter was aspirated and flushed with saline. Patient was discharged in stable condition without complication. Maximal barrier technique is utilized. Ultr asound image is documented on the chart. Ultrasound used with sterile technique. Fluoro time and fluoroscopic images submitted to document procedure: 157 intraoperative C-arm images, 0.6 minutes fluoroscopy time IMPRESSION: STATUS POST ULTRASOUND AND FLUOROSCOPIC GUIDED PICC LINE PLACEMENT, READY FOR USE. THIS PROCEDURE WAS PERFORMED BY THE UNDERSIGNED.
--- NOTE | 2022-01-09 14:30 | P.PN ---
Subjective Progress Note Date: 01/09/22 01/09/2022, the patient only complains. Neurologically unchanged. There is still ongoing weakness in the right upper extremity. The patient is ambulating. She has a walker. She is awaiting a PICC line insertion for outpatient antibiotic treatment with vancomycin. She is afebrile. She similarly stable at this point in time. No worsening in her respiratory status. The patient is a white cell count of 8.5 with hemoglobin of 7.2. Urine is a 34 with a creatinine of 1.7. Sodium level is 137 and the patient's vancomycin trough is at 12.8. The oxidation remains stable and the patient is on 3 L O2 nasal cannula with a pulse ox of 98%. Objective - Vital Signs Vital signs: Vital Signs Temp 98.1 F 01/09/22 09:53 Pulse 90 01/09/22 11:13 Resp 18 01/09/22 11:13 BP 106/56 01/09/22 09:53 Pulse Ox 98 01/09/22 09:53 FiO2 3 01/08/22 08:01 Intake & Output 01/08/22 01/09/22 01/09/22 18:59 06:59 18:59 Intake Total 100 Balance 100 Weight 127 kg Intake: Oral 100 Other: Voiding Method Toilet Toilet Toilet External Catheter External Catheter External Catheter # Voids 1 1 1 - Exam GENERAL EXAM: Alert, pleasant, 56-year-old white female, on 2 L of oxygen with pulse ox of 100% comfortable in no apparent distress. HEAD: Normocephalic/atraumatic. EYES: Normal reaction of pupils, equal size. Conjunctiva pink, sclera white. NOSE: Clear with pink turbinates. THROAT: No erythema or exudates. NECK: No masses, no JVD, no thyroid enlargement, no adenopathy. CHEST: No chest wall deformity. Symmetrical expansion. LUNGS: no crackles, wheeze, rhonchi or dullness. Breath sounds on the left CVS: Regular rate and rhythm, normal S1 and S2, no gallops, no murmurs, no rubs ABDOMEN: Soft, nontender. No hepatosplenomegaly, normal bowel sounds, no guarding or rigidity. EXTREMITIES: No clubbing, no edema, no cyanosis, 2+ pulses and upper and lower extremities. Right hand weakness MUSCULOSKELETAL: Muscle strength and tone normal. SPINE: No scoliosis or deformity SKIN: No rashes CENTRAL NERVOUS SYSTEM: Alert and oriented -3. No focal deficits, tone is normal in all 4 extremities. PSYCHIATRIC: Alert and oriented -3. Appropriate affect. Intact judgment and insight. - Labs CBC & Chem 7: 01/09/22 07:51 01/09/22 07:51 Labs: Abnormal Lab Results - Last 24 Hours (Table) 01/08/22 01/08/22 01/08/22 Range/Units 15:11 15:11 20:09 RBC 3.08 L (3.80-5.40) m/uL Hgb 7.7 L (11.4-16.0) gm/dL Hct 25.8 L (34.0-46.0) % MCHC 30.0 L (31.0-37.0) g/dL RDW 16.8 H (11.5-15.5) % Plt Count 124 L (150-450) k/uL Lymphocytes # 0.9 L (1.0-4.8) k/uL PT 14.5 H (9.0-12.0) sec INR 1.4 H (<1.2) APTT 150.1 H* (22.0-30.0) sec Chloride (98-107) mmol/L BUN (7-17) mg/dL Creatinine (0.52-1.04) mg/dL POC Glucose (mg/dL) 142 H (70-110) mg/dL Albumin (3.5-5.0) g/dL 01/09/22 01/09/22 01/09/22 Range/Units 06:20 07:51 07:51 RBC 2.87 L (3.80-5.40) m/uL Hgb 7.2 L (11.4-16.0) gm/dL Hct 23.8 L (34.0-46.0) % MCHC 30.3 L (31.0-37.0) g/dL RDW 16.7 H (11.5-15.5) % Plt Count 102 L (150-450) k/uL Lymphocytes # 0.7 L (1.0-4.8) k/uL PT (9.0-12.0) sec INR (<1.2) APTT (22.0-30.0) sec Chloride 108 H (98-107) mmol/L BUN 34 H (7-17) mg/dL Creatinine 1.74 H (0.52-1.04) mg/dL POC Glucose (mg/dL) 122 H (70-110) mg/dL Albumin 2.8 L (3.5-5.0) g/dL 01/09/22 01/09/22 Range/Units 07:51 12:21 RBC (3.80-5.40) m/uL Hgb (11.4-16.0) gm/dL Hct (34.0-46.0) % MCHC (31.0-37.0) g/dL RDW (11.5-15.5) % Plt Count (150-450) k/uL Lymphocytes # (1.0-4.8) k/uL PT 12.9 H (9.0-12.0) sec INR 1.2 H (<1.2) APTT (22.0-30.0) sec Chloride (98-107) mmol/L BUN (7-17) mg/dL Creatinine (0.52-1.04) mg/dL POC Glucose (mg/dL) 153 H (70-110) mg/dL Albumin (3.5-5.0) g/dL Microbiology - Last 24 Hours (Table) 01/05/22 14:37 Blood Culture - Preliminary Blood No Growth after 72 hours 01/05/22 14:28 Blood Culture - Preliminary Blood No Growth after 72 hours 01/05/22 13:18 Blood Culture - Preliminary Blood No Growth after 72 hours 01/05/22 13:05 Blood Culture - Preliminary Blood No Growth after 72 hours Assessment and Plan Plan: Right upper extremity weakness, currently being evaluated by the primary service. MRI scan of the brain showed an acute CVA involving the left frontal and left frontoparietal region of the brain, without hemorrhagic transformation. Acute ischemic stroke, multiple small areas, involving left frontal parietal region, most likely cardioembolic in nature. Neurologically there is some interval improvement in the right upper extremity weakness. The patient is currently on aspirin. The patient is also on IV antibiotics of vancomycin regarding possibility of infective endocarditis with staph epidermidis. The vancomycin trough from yesterday was 13.0. Recurrent adenocarcinoma of the lung, status post chemoradiation in 2016 and 2021. Repeat lung biopsy November 2021, again showed adenocarcinoma. Questionable mitral valve vegetation based on RONALD findings, this along with a possible culture with staph epidermidis as a concern for endocarditis and the p yariel is currently on vancomycin. Mitral valve regurgitation moderate degree Bacteremia with staph epidermidis, The repeat cultures from 01/05/2022 are both negative. Ongoing tobacco use with nicotine addiction. History of COPD. History of CVA. History of diabetes mellitus. CKD stage 3, creatinine is down to 1.95 History of DVT/pulmonary embolism. Gastroesophageal reflux disease. History of seizure disorder. obstructive sleep apnea syndrome on CPAP therapy Hypothyroidism. History of proteins S and C deficiency. Staph epiderm in the blood Plan: PICC line insertion today Continue antibiotics and patient remains on vancomycin Follow-up blood cultures have shown no growth Neurologically the patient is out of her weakness is still stable compared to yesterday Continue Lovenox 200 mg subcu daily Continue aspirin Possible discharge to ECF today. Overall Mr. status is stable.
[2022-01-09 14:32] VITALS: BP 101/57
--- NOTE | 2022-01-09 16:16 | P.PN ---
Subjective Progress Note Date: 01/08/22 Principal diagnosis: Bacteremia and abnormal echo Patient is a 56-year female presenting to the hospital for right-sided weakness patient did have abnormal echo subsequently did have a RONALD with evidence of vegetation on the anterior mitral leaflet and the patient did have evidence of staph epi bacteremia. On today's evaluation that is 01/08/2022, the patient continues to be afebrile, the patient is breathing comfortably on nasal cannula oxygen, the patient denies chest pain no worsening cough or sputum production , the patient denies abdominal pain no diarrhea Objective - Vital Signs Vital signs: Vital Signs Temp 98 F 01/08/22 12:10 Pulse 104 H 01/08/22 12:10 Resp 16 01/08/22 12:10 BP 106/73 01/08/22 12:10 Pulse Ox 100 01/08/22 12:10 FiO2 3 01/08/22 08:01 Intake & Output 01/07/22 01/08/22 01/08/22 18:59 06:59 18:59 Intake Total 118 100 Output Total 250 Balance 118 -250 100 Weight 127 kg Intake: Oral 118 100 Output: Urine 250 Other: Voiding Method Toilet Toilet Toilet External Catheter External Catheter # Voids 1 1 - Exam GENERAL DESCRIPTION: A middle-age female up in the chair in no distress RESPIRATORY SYSTEM: Unlabored breathing , decreased breath sounds at bases HEART: S1 S2 regular rate and rhythm , ABDOMEN: Soft , no tenderness EXTREMITIES: No edema feet - Labs CBC & Chem 7: 01/09/22 07:51 01/09/22 07:51 Labs: Abnormal Lab Results - Last 24 Hours (Table) 01/07/22 01/07/22 01/08/22 Range/Units 16:26 21:47 06:04 RBC (3.80-5.40) m/uL Hgb (11.4-16.0) gm/dL Hct (34.0-46.0) % MCHC (31.0-37.0) g/dL RDW (11.5-15.5) % Plt Count (150-450) k/uL Sodium (137-145) mmol/L Chloride (98-107) mmol/L Carbon Dioxide (22-30) mmol/L BUN (7-17) mg/dL Creatinine (0.52-1.04) mg/dL Glucose (74-99) mg/dL POC Glucose (mg/dL) 121 H 127 H 113 H (70-110) mg/dL Lactate Dehydrogenase (313-618) U/L Total Protein (6.3-8.2) g/dL Albumin (3.5-5.0) g/dL 01/08/22 01/08/22 Range/Units 08:18 08:18 RBC 2.85 L (3.80-5.40) m/uL Hgb 7.6 L (11.4-16.0) gm/dL Hct 24.5 L (34.0-46.0) % MCHC 30.9 L (31.0-37.0) g/dL RDW 16.8 H (11.5-15.5) % Plt Count 94 L (150-450) k/uL Sodium 136 L (137-145) mmol/L Chloride 113 H (98-107) mmol/L Carbon Dioxide 18 L (22-30) mmol/L BUN 37 H (7-17) mg/dL Creatinine 1.54 H (0.52-1.04) mg/dL Glucose 133 H (74-99) mg/dL POC Glucose (mg/dL) (70-110) mg/dL Lactate Dehydrogenase 790 H (313-618) U/L Total Protein 5.7 L (6.3-8.2) g/dL Albumin 2.4 L (3.5-5.0) g/dL Microbiology - Last 24 Hours (Table) 01/05/22 14:28 Blood Culture - Preliminary Blood No Growth after 48 hours 01/05/22 14:37 Blood Culture - Preliminary Blood No Growth after 48 hours 01/05/22 13:18 Blood Culture - Preliminary Blood No Growth after 48 hours 01/05/22 13:05 Blood Culture - Preliminary Blood No Growth after 48 hours Assessment and Plan (1) Endocarditis Current Visit: Yes Status: Acute Code(s): I38 - ENDOCARDITIS, VALVE UNSPECIFIED SNOMED Code(s): 06071233 Plan: 1patient presented to hospital about 4 days ago predominantly with the right upper and lower extremity weakness in this patient did have abnormal MRI suspicious for acute CVA patient also have a abnormal echocardiogram with concern for possible vegetation of the mitral wall which has been confirmed on a RONALD today, patient did have positive blood culture with staph epi could be the likely pathogen as the patient currently do not have any evidence of cellulitis joint swelling. 2blood culture has been repeated to document clearance of bacteremia , once blood cultures are negative at 72 hours patient will be able to get a PICC line, should be able to get a PICC line placement today 3patient currently be treated with vancomycin pharmacy to dose target trough of 15 while watching kidney function and vancomycin trough closely, and plan is 6 weeks of IV vancomycin on discharge, Time with Patient: Less than 30
--- NOTE | 2022-01-09 16:18 | P.PN ---
Subjective Progress Note Date: 01/09/22 Principal diagnosis: Bacteremia and abnormal echo Patient is a 56-year female presenting to the hospital for right-sided weakness patient did have abnormal echo subsequently did have a RONALD with evidence of vegetation on the anterior mitral leaflet and the patient did have evidence of staph epi bacteremia. On today's evaluation that is 01/09/2022, the patient denies any fever or any chills, the patient is breathing comfortably on nasal cannula oxygen, the patient denies chest pain did have occasional dry cough the patient denies abdominal pain no diarrhea Objective - Vital Signs Vital signs: Vital Signs Temp 98.1 F 01/09/22 09:53 Pulse 90 01/09/22 11:13 Resp 18 01/09/22 14:34 BP 101/57 01/09/22 13:00 Pulse Ox 100 01/09/22 13:00 FiO2 3 01/08/22 08:01 Intake & Output 01/08/22 01/09/22 01/09/22 18:59 06:59 18:59 Intake Total 100 Balance 100 Weight 127 kg Intake: Oral 100 Other: Voiding Method Toilet Toilet Toilet External Catheter External Catheter External Catheter # Voids 1 1 1 - Exam GENERAL DESCRIPTION: A middle-age female up in the chair in no distress RESPIRATORY SYSTEM: Unlabored breathing , decreased breath sounds at bases HEART: S1 S2 regular rate and rhythm , ABDOMEN: Soft , no tenderness EXTREMITIES: No edema feet - Labs CBC & Chem 7: 01/09/22 07:51 01/09/22 07:51 Labs: Abnormal Lab Results - Last 24 Hours (Table) 01/08/22 01/08/22 01/08/22 Range/Units 15:11 15:11 20:09 RBC 3.08 L (3.80-5.40) m/uL Hgb 7.7 L (11.4-16.0) gm/dL Hct 25.8 L (34.0-46.0) % MCHC 30.0 L (31.0-37.0) g/dL RDW 16.8 H (11.5-15.5) % Plt Count 124 L (150-450) k/uL Lymphocytes # 0.9 L (1.0-4.8) k/uL PT 14.5 H (9.0-12.0) sec INR 1.4 H (<1.2) APTT 150.1 H* (22.0-30.0) sec Chloride (98-107) mmol/L BUN (7-17) mg/dL Creatinine (0.52-1.04) mg/dL POC Glucose (mg/dL) 142 H (70-110) mg/dL Albumin (3.5-5.0) g/dL 01/09/22 01/09/22 01/09/22 Range/Units 06:20 07:51 07:51 RBC 2.87 L (3.80-5.40) m/uL Hgb 7.2 L (11.4-16.0) gm/dL Hct 23.8 L (34.0-46.0) % MCHC 30.3 L (31.0-37.0) g/dL RDW 16.7 H (11.5-15.5) % Plt Count 102 L (150-450) k/uL Lymphocytes # 0.7 L (1.0-4.8) k/uL PT (9.0-12.0) sec INR (<1.2) APTT (22.0-30.0) sec Chloride 108 H (98-107) mmol/L BUN 34 H (7-17) mg/dL Creatinine 1.74 H (0.52-1.04) mg/dL POC Glucose (mg/dL) 122 H (70-110) mg/dL Albumin 2.8 L (3.5-5.0) g/dL 01/09/22 01/09/22 Range/Units 07:51 12:21 RBC (3.80-5.40) m/uL Hgb (11.4-16.0) gm/dL Hct (34.0-46.0) % MCHC (31.0-37.0) g/dL RDW (11.5-15.5) % Plt Count (150-450) k/uL Lymphocytes # (1.0-4.8) k/uL PT 12.9 H (9.0-12.0) sec INR 1.2 H (<1.2) APTT (22.0-30.0) sec Chloride (98-107) mmol/L BUN (7-17) mg/dL Creatinine (0.52-1.04) mg/dL POC Glucose (mg/dL) 153 H (70-110) mg/dL Albumin (3.5-5.0) g/dL Microbiology - Last 24 Hours (Table) 01/05/22 13:18 Blood Culture - Preliminary Blood No Growth after 96 hours 01/05/22 13:05 Blood Culture - Preliminary Blood No Growth after 96 hours 01/05/22 14:37 Blood Culture - Preliminary Blood No Growth after 72 hours 01/05/22 14:28 Blood Culture - Preliminary Blood No Growth after 72 hours Assessment and Plan (1) Endocarditis Current Visit: Yes Status: Acute Code(s): I38 - ENDOCARDITIS, VALVE UNSPECIF IED SNOMED Code(s): 11926003 Plan: 1patient presented to hospital about 4 days ago predominantly with the right upper and lower extremity weakness in this patient did have abnormal MRI suspicious for acute CVA patient also have a abnormal echocardiogram with concern for possible vegetation of the mitral wall which has been confirmed on a RONALD today, patient did have positive blood culture with staph epi could be the likely pathogen as the patient currently do not have any evidence of cellulitis joint swelling. 2blood culture repeat has been negative and the patient did get a PICC line 3patient to continue with vancomycin pharmacy to dose 6 weeks with weekly monitoring of CBC CRP and a sed rate and it was the patient follow-up Time with Patient: Less than 30
== END 2022-01-09 16:17 | DRG 64 ==
LOC: EC 11:29 → 3SCARD 15:04
PROVIDERS: ADMIT Internal Medicine Geriatric Medicine; ATTEND Internal Medicine Geriatric Medicine
PROC: B246ZZ4 Ultrasonography of Right and Left Heart, Transesophageal (ICD-10-PCS; 2022-01-05)
PROC: 5A09357 Assistance with Respiratory Ventilation, Less than 24 Consecutive Hours, Continuous Positive Airway Pressure (ICD-10-PCS; 2022-01-05)
PROC: 02HV33Z Insertion of Infusion Device into Superior Vena Cava, Percutaneous Approach (ICD-10-PCS; principal; 2022-01-09 12:15)
DX: I63.49 Cerebral infarction due to embolism of other cerebral artery (principal); I26.99 Other pulmonary embolism without acute cor pulmonale; N17.0 Acute kidney failure with tubular necrosis; I33.0 Acute and subacute infective endocarditis; C34.12 Malignant neoplasm of upper lobe, left bronchus or lung; C79.31 Secondary malignant neoplasm of brain; D68.62 Lupus anticoagulant syndrome; I69.351 Hemiplegia and hemiparesis following cerebral infarction affecting right dominant side; J44.0 Chronic obstructive pulmonary disease with (acute) lower respiratory infection; J44.1 Chronic obstructive pulmonary disease with (acute) exacerbation; J96.11 Chronic respiratory failure with hypoxia; J98.11 Atelectasis; B95.7 Other staphylococcus as the cause of diseases classified elsewhere; F17.210 Nicotine dependence, cigarettes, uncomplicated; E03.9 Hypothyroidism, unspecified; E11.22 Type 2 diabetes mellitus with diabetic chronic kidney disease; I12.9 Hypertensive chronic kidney disease with stage 1 through stage 4 chronic kidney disease, or unspecified chronic kidney disease; E78.5 Hyperlipidemia, unspecified; E87.6 Hypokalemia; F32.A Depression, unspecified; I08.3 Combined rheumatic disorders of mitral, aortic and tricuspid valves; J98.09 Other diseases of bronchus, not elsewhere classified; N18.32 Chronic kidney disease, stage 3b; G40.409 Other generalized epilepsy and epileptic syndromes, not intractable, without status epilepticus; G47.33 Obstructive sleep apnea (adult) (pediatric); G62.9 Polyneuropathy, unspecified; G89.4 Chronic pain syndrome; M79.672 Pain in left foot; M79.671 Pain in right foot; M21.379 Foot drop, unspecified foot; J20.9 Acute bronchitis, unspecified; K21.9 Gastro-esophageal reflux disease without esophagitis; Z63.4 Disappearance and death of family member; Z63.72 Alcoholism and drug addiction in family; M54.9 Dorsalgia, unspecified; I48.0 Paroxysmal atrial fibrillation; R29.701 NIHSS score 1; I25.10 Atherosclerotic heart disease of native coronary artery without angina pectoris; Z79.01 Long term (current) use of anticoagulants; Z79.4 Long term (current) use of insulin; Z79.51 Long term (current) use of inhaled steroids; Z79.82 Long term (current) use of aspirin; Z79.84 Long term (current) use of oral hypoglycemic drugs; Z79.890 Hormone replacement therapy; Z79.899 Other long term (current) drug therapy; Z81.1 Family history of alcohol abuse and dependence; Z81.3 Family history of other psychoactive substance abuse and dependence; Z82.3 Family history of stroke; Z85.118 Personal history of other malignant neoplasm of bronchus and lung; Z86.711 Personal history of pulmonary embolism; Z86.718 Personal history of other venous thrombosis and embolism; Z92.21 Personal history of antineoplastic chemotherapy; Z92.3 Personal history of irradiation
CPT/HCPCS: 36415; 36573; 70450; 70553; 71046; 71250; 80053; 80061; 80202; 82565; 83605; 83615; 83735; 84145; 84484; 85025; 85610; 85730; 86140; 87040; 87077; 87186; 87635; 93005; 93308; 93312; 93320; 93325; 93880; 94640; 94760; 96365; 99285